=== PATIENT | male | born 1995 | race Caucasian/White ===

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

== ENCOUNTER 2018-04-27 11:28 | Inpatient (IN) ==
[2018-04-27] MEDS ORDERED: Sod Chloride 0.9% Inj 1,000 ML IV.CONT SCH ×2 (11:45→14:15)
[2018-04-27 11:47] LABS: Baso # (Auto) 0.1 th/mm3 (0.0-0.2); Baso % (Auto) 0.4 % (0.0-2.0); Eos # (Auto) 0.1 th/mm3 (0.0-0.4); Eos % (Auto) 0.6 % (0.0-4.0); Hematocrit 40.4 % (39.0-51.0); Hemoglobin 13.7 gm/dL (13.0-17.0); Lymph # (Auto) 4.8 th/mm3 (1.0-4.8); Lymph % (Auto) 28.1 % (9.0-44.0); Mean Corpuscular Volume 88.5 fL (80.0-100.0); Mono # (Auto) 0.8 th/mm3 (0.0-0.9); Mono % (Auto) 4.4 % (0.0-8.0); Neut # (Auto) 11.3 th/mm3 (1.8-7.7); Neut % (Auto) 66.5 % (16.0-70.0); Platelet Count 329 th/mm3 (150-450); Red Blood Count 4.57 mil/mm3 (4.50-5.90); Red Cell Distribution Width 14.2 % (11.6-17.2); White Blood Count 17.1 th/mm3 (4.0-11.0)
--- NOTE | 2018-04-27 11:48 | ED ---
HPI General Chief Complaint: Overdose Stated Complaint: Overdose Time Seen by Provider: 04/27/18 11:31 History of Present Illness HPI narrative: Patient is approximately 37 years old male obese, was found on the floor by another person possibly his father who called the ambulance. Patient was unresponsive down time is unknown. EMS came to house, patient was given Narcan with no response, he was intubated on the scene, was unresponsive. They found at back of PCP next to the patient. As per father he does not use any street drugs, patient has history of psychiatric disorder no information about medications. Patient was brought to emergency room intubated, heart rate 118, systolic blood pressure is 96. Pupils pinpoint 2 mm, sluggish. IV fluids given. Related Data Home Medications Medication Instructions Recorded Confirmed Unable to Obtain Home Meds 04/27/18 04/27/18 Allergies Allergy/AdvReac Type Severity Reaction Status Date / Time shellfish derived Allergy Anaphylaxis Verified 04/27/18 13:21 Review of Systems ROS: all other systems reviewed are negative Constitutional Comments: Unresponsive Respiratory Comments: Intubated, bilateral rhonchi PMFSH Medical History Medical History Affective bipolar disorder (Acute) Surgical History Surgical History Hx of tonsillectomy (Acute) Social History Social History Substance History: Active Abuse Second Hand Smoke Exposure: No Smoking Status: Never smoker Tobacco Type: E-Cigarettes How Often Do You Have a Drink Containing Alcohol: Never Recent Travel in [facility] within the Last 8 Weeks: No Recent Out of Country Travel within the Last 8 Weeks: No Exam Narrative Exam Narrative: GENERAL: Obese male unknown age, intubated, unresponsive. SKIN: Focused skin assessment warm/dry. HEAD: Normocephalic. EYES: Pupils equal, 2 mm, sluggish, no scleral icterus. No injection or drainage. ENT: No nasal bleeding or discharge. Mucous membranes pink and moist. ET tube in place. NECK: Trachea midline. No JVD. CARDIOVASCULAR: Regular rate and rhythm. No murmur appreciated. RESPIRATORY: Intubated, on the vent, bilateral rhonchi. GASTROINTESTINAL: Abdomen soft, non-tender, nondistended. Hepatic and splenic margins not palpable. MUSCULOSKELETAL: No obvious deformities. No clubbing. No cyanosis. No edema. NEUROLOGICAL: Patient is intubated, unresponsive, pupils sluggish, unable to evaluate neurologic system. PSYCHIATRIC: Unresponsive Course Initial Documented Vital Signs Temperature 98.4 F 04/27/18 11:30 Pulse Rate 117 H 04/27/18 11:30 Blood Pressure 96/51 L 04/27/18 11:30 Pulse Oximetry 98 04/27/18 11:30 Last Documented Vital Signs Temperature 98.9 F 04/28/18 04:00 Pulse Rate 93 H 04/28/18 07:39 Respiratory Rate 17 04/28/18 07:39 Blood Pressure 109/53 L 04/28/18 07:00 Pulse Oximetry 100 04/28/18 07:39 Procedures Central Line Placement Left IJ: Time Out Performed: Yes Patient Placed on Monitor/Pulse Ox: Yes MD Prep: mask, gown, gloves and other Central Line Prep: Chlorhexidine scrub Local anesthesia used: lidocaine 1% Amount of anesthesia used (mL): 10 Ultrasound Used for Placement: Yes Central Line Lumen Inserted: triple Post Procedure: sutured in place, good blood return, all ports aspirated, flushed, capped and sterile dressing applied Post Procedure X-Ray: tip of catheter in good position and no pneumothorax seen Patient Tolerated Procedure: well and no complications Complications: none Critical Care Time Critical Care Time: Yes Total Critical Care Time: 45 Attestation: Patient is unresponsive, intubated, status post trauma/fall, suicidal attempt suspected, has bilateral infiltrates in the lungs, most likely aspiration pneumonia, treated with few liters of IV fluids, multiple labs and CAT scans done. Case discussed with family, admitting physicians. Critical care time does not include central line placement. Medical Decision Making MDM Narrative Medical decision making narrative: Patient is unresponsive, initiated cardiac workup, trauma workup, intoxication workup, IV fluids given. Reevaluation is pending. 1230: Parents arrived, as per father patient has history of psychiatric disorder , and suicidal ideations. Was evaluated multiple times in psychiatric department. As per him patient most likely perform suicidal attempt. Patient saw bottle was Ethylene glycol, was using PCP, Wellbutrin... 1600: Blood pressure dropped, most likely due to sepsis, case discussed with lining strap closer Dr. Parker, who accepted patient to [facility] due to possible dialysis procedure. Central line placed in I J. Medical Screen Exam Complete: Yes Emergency Medical Condition: Yes Lab Data Result diagrams: 04/28/18 04:50 04/28/18 04:50 Lab Results 04/27/18 04/27/18 04/27/18 Range/Units 11:30 11:30 11:30 CBC w Diff WBC (4.0-11.0) th/mm3 RBC (4.50-5.90) mil/mm3 Hgb (13.0-17.0) gm/dL Hct (39.0-51.0) % MCV (80.0-100.0) fL MCH (27.0-34.0) pg MCHC (32.0-36.0) % RDW (11.6-17.2) % Plt Count (150-450) th/mm3 MPV (7.0-11.0) fL Neut % (Auto) (16.0-70.0) % Lymph % (Auto) (9.0-44.0) % [place] % (Auto) (0.0-8.0) % Eos % (Auto) (0.0-4.0) % Baso % (Auto) (0.0-2.0) % Neut # (Auto) (1.8-7.7) th/mm3 Lymph # (Auto) (1.0-4.8) th/mm3 [place] # (Auto) (0.0-0.9) th/mm3 Eos # (Auto) (0.0-0.4) th/mm3 Baso # (Auto) (0.0-0.2) th/mm3 WBC Differential Differential Comment PT 10.3 (9.8-11.6) sec INR 1.0 Ratio APTT 25.3 (24.3-30.1) sec Fibrinogen (227-377) mg/dL Puncture Site Patient Temperature O2 Saturation (90-100) % ABG pH (7.380-7.420) ABG pCO2 (38-42) mmHg ABG pO2 (61-120) mmHg ABG HCO3 (22-26) mmol/L ABG O2 Content (12.0-20.0) Vol % ABG Base Excess (-2-2) mmol/L ABG Methemoglobin (0-2) % Noah Test Hemoglobin (12.0-16.0) G/DL Carboxyhemoglobin (0-4) % O2 Delivery Device Vent Setting Inspired O2 % Critical Value Sodium (136-145) meq/L Potassium (3.5-5.1) meq/L Chloride (98-107) meq/L Carbon Dioxide (21.0-32.0) meq/L Anion Gap (5-15) meq/L BUN (7-18) mg/dL Creatinine (0.60-1.30) mg/dL Estimated GFR (>89) mL/min POC Glucose (68-110) mg/dl Random Glucose (74-106) mg/dL Osmolality (275-295) mosm/kg Lactic Acid (0.4-2.0) mmol/L Calcium (8.5-10.1) mg/dL Prot Corrected Calcium (8.5-10.1) mg/dL Phosphorus (2.5-4.9) mg/dL Magnesium (1.5-2.5) mg/dL Total Bilirubin (0.2-1.0) mg/dL AST (15-37) U/L ALT (12-78) U/L Alkaline Phosphatase (45-117) U/L Ammonia (11-32) mcmol/L Total Creatine Kinase (39-308) U/L CK-MB (CK-2) (0.5-3.6) ng/mL CK-MB (CK-2) % (0.0-4.0) % Troponin I (0.02-0.05) ng/mL Total Protein (6.4-8.2) g/dL Albumin (3.4-5.0) g/dL Urine Color (Yellw/Straw) Urine Clarity (Clear) Urine pH (5.0-8.5) Ur Specific [place] (1.002-1.035) Urine Protein (Neg-Trace) mg/dL Urine Glucose (UA) (Negative) mg/dL Urine Ketones (Negative) mg/dL Urine Occult Blood (Negative) Urine Nitrate (Negative) Urine Bilirubin (Negative) Urine Urobilinogen (Less than 2) mg/dL Ur Leukocyte Esterase (Negative) Urine RBC (0-3) /hpf Urine WBC (0-5) /hpf Urine Mucus (Occasional) /lpf Micro UA Comment Ur Microscopic Review Urine Culture Comments Nasal Screen MRSA (PCR) Salicylates Cancelled Urine Opiates Screen (Neg) Acetaminophen (10.0-30.0) mcg/mL Ur Barbiturates Screen (Neg) Ur Amphetamines Screen (Neg) U Benzodiazepines Scrn (Neg) Urine Cocaine Screen (Neg) U Cannabinoids Screen (Neg) Serum Alcohol Cancelled 04/27/18 04/27/18 04/27/18 Range/Units 11:30 11:30 11:40 CBC w Diff Auto diff final WBC 17.1 H (4.0-11.0) th/mm3 RBC 4.57 (4.50-5.90) mil/mm3 Hgb 13.7 (13.0-17.0) gm/dL Hct 40.4 (39.0-51.0) % MCV 88.5 (80.0-100.0) fL MCH 30.0 (27.0-34.0) pg MCHC 34.0 (32.0-36.0) % RDW 14.2 (11.6-17.2) % Plt Count 329 (150-450) th/mm3 MPV 7.0 (7.0-11.0) fL Neut % (Auto) 66.5 (16.0-70.0) % Lymph % (Auto) 28.1 (9.0-44.0) % [place] % (Auto) 4.4 (0.0-8.0) % Eos % (Auto) 0.6 (0.0-4.0) % Baso % (Auto) 0.4 (0.0-2.0) % Neut # (Auto) 11.3 H (1.8-7.7) th/mm3 Lymph # (Auto) 4.8 (1.0-4.8) th/mm3 [place] # (Auto) 0.8 (0.0-0.9) th/mm3 Eos # (Auto) 0.1 (0.0-0.4) th/mm3 Baso # (Auto) 0.1 (0.0-0.2) th/mm3 WBC Differential . Differential Comment . PT (9.8-11.6) sec INR Ratio APTT (24.3-30.1) sec Fibrinogen (227-377) mg/dL Puncture Site Patient Temperature O2 Saturation (90-100) % ABG pH (7.380-7.420) ABG pCO2 (38-42) mmHg ABG pO2 (61-120) mmHg ABG HCO3 (22-26) mmol/L ABG O2 Content (12.0-20.0) Vol % ABG Base Excess (-2-2) mmol/L ABG Methemoglobin (0-2) % Noah Test Hemoglobin (12.0-16.0) G/DL Carboxyhemoglobin (0-4) % O2 Delivery Device Vent Setting Inspired O2 % Critical Value Sodium 137 (136-145) meq/L Potassium 3.8 (3.5-5.1) meq/L Chloride 103 (98-107) meq/L Carbon Dioxide 25.5 (21.0-32.0) meq/L Anion Gap 9 (5-15) meq/L BUN 14 (7-18) mg/dL Creatinine 1.20 (0.60-1.30) mg/dL Estimated GFR 52 L (>89) mL/min POC Glucose (68-110) mg/dl Random Glucose 232 H (74-106) mg/dL Osmolality (275-295) mosm/kg Lactic Acid (0.4-2.0) mmol/L Calcium 7.8 L (8.5-10.1) mg/dL Prot Corrected Calcium (8.5-10.1) mg/dL Phosphorus (2.5-4.9) mg/dL Magnesium 2.2 (1.5-2.5) mg/dL Total Bilirubin 0.3 (0.2-1.0) mg/dL AST 51 H (15-37) U/L ALT 46 (12-78) U/L Alkaline Phosphatase 80 (45-117) U/L Ammonia (11-32) mcmol/L Total Creatine Kinase (39-308) U/L CK-MB (CK-2) (0.5-3.6) ng/mL CK-MB (CK-2) % (0.0-4.0) % Troponin I Less than 0.02 L (0.02-0.05) ng/mL Total Protein 6.8 (6.4-8.2) g/dL Albumin 3.5 (3.4-5.0) g/dL Urine Color (Yellw/Straw) Urine Clarity (Clear) Urine pH (5.0-8.5) Ur Specific [place] (1.002-1.035) Urine Protein (Neg-Trace) mg/dL Urine Glucose (UA) (Negative) mg/dL Urine Ketones (Negative) mg/dL Urine Occult Blood (Negative) Urine Nitrate (Negative) Urine Bilirubin (Negative) Urine Urobilinogen (Less than 2) mg/dL Ur Leukocyte Esterase (Negative) Urine RBC (0-3) /hpf Urine WBC (0-5) /hpf Urine Mucus (Occasional) /lpf Micro UA Comment Ur Microscopic Review Urine Culture Comments Nasal Screen MRSA (PCR) Salicylates Urine Opiates Screen (Neg) Acetaminophen Less than 2.0 L (10.0-30.0) mcg/mL Ur Barbiturates Screen (Neg) Ur Amphetamines Screen (Neg) U Benzodiazepines Scrn (Neg) Urine Cocaine Screen (Neg) U Cannabinoids Screen (Neg) Serum Alcohol Less than 3 04/27/18 04/27/18 04/27/18 Range/Units 11:40 11:46 12:00 CBC w Diff WBC (4.0-11.0) th/mm3 RBC (4.50-5.90) mil/mm3 Hgb (13.0-17.0) gm/dL Hct (39.0-51.0) % MCV (80.0-100.0) fL MCH (27.0-34.0) pg MCHC (32.0-36.0) % RDW (11.6-17.2) % Plt Count (150-450) th/mm3 MPV (7.0-11.0) fL Neut % (Auto) (16.0-70.0) % Lymph % (Auto) (9.0-44.0) % [place] % (Auto) (0.0-8.0) % Eos % (Auto) (0.0-4.0) % Baso % (Auto) (0.0-2.0) % Neut # (Auto) (1.8-7.7) th/mm3 Lymph # (Auto) (1.0-4.8) th/mm3 [place] # (Auto) (0.0-0.9) th/mm3 Eos # (Auto) (0.0-0.4) th/mm3 Baso # (Auto) (0.0-0.2) th/mm3 WBC Differential Differential Comment PT (9.8-11.6) sec INR Ratio APTT (24.3-30.1) sec Fibrinogen (227-377) mg/dL Puncture Site Patient Temperature O2 Saturation (90-100) % ABG pH (7.380-7.420) ABG pCO2 (38-42) mmHg ABG pO2 (61-120) mmHg ABG HCO3 (22-26) mmol/L ABG O2 Content (12.0-20.0) Vol % ABG Base Excess (-2-2) mmol/L ABG Methemoglobin (0-2) % Noah Test Hemoglobin (12.0-16.0) G/DL Carboxyhemoglobin (0-4) % O2 Delivery Device Vent Setting Inspired O2 % Critical Value Sodium (136-145) meq/L Potassium (3.5-5.1) meq/L Chloride (98-107) meq/L Carbon Dioxide (21.0-32.0) meq/L Anion Gap (5-15) meq/L BUN (7-18) mg/dL Creatinine (0.60-1.30) mg/dL Estimated GFR (>89) mL/min POC Glucose 216 H (68-110) mg/dl Random Glucose (74-106) mg/dL Osmolality (275-295) mosm/kg Lactic Acid 2.8 H (0.4-2.0) mmol/L Calcium (8.5-10.1) mg/dL Prot Corrected Calcium (8.5-10.1) mg/dL Phosphorus (2.5-4.9) mg/dL Magnesium (1.5-2.5) mg/dL Total Bilirubin (0.2-1.0) mg/dL AST (15-37) U/L ALT (12-78) U/L Alkaline Phosphatase (45-117) U/L Ammonia (11-32) mcmol/L Total Creatine Kinase (39-308) U/L CK-MB (CK-2) (0.5-3.6) ng/mL CK-MB (CK-2) % (0.0-4.0) % Troponin I (0.02-0.05) ng/mL Total Protein (6.4-8.2) g/dL Albumin (3.4-5.0) g/dL Urine Color (Yellw/Straw) Urine Clarity (Clear) Urine pH (5.0-8.5) Ur Specific [place] (1.002-1.035) Urine Protein (Neg-Trace) mg/dL Urine Glucose (UA) (Negative) mg/dL Urine Ketones (Negative) mg/dL Urine Occult Blood (Negative) Urine Nitrate (Negative) Urine Bilirubin (Negative) Urine Urobilinogen (Less than 2) mg/dL Ur Leukocyte Esterase (Negative) Urine RBC (0-3) /hpf Urine WBC (0-5) /hpf Urine Mucus (Occasional) /lpf Micro UA Comment Ur Microscopic Review Urine Culture Comments Nasal Screen MRSA (PCR) Salicylates Less than 1.7 L Urine Opiates Screen (Neg) Acetaminophen (10.0-30.0) mcg/mL Ur Barbiturates Screen (Neg) Ur Amphetamines Screen (Neg) U Benzodiazepines Scrn (Neg) Urine Cocaine Screen (Neg) U Cannabinoids Screen (Neg) Serum Alcohol 04/27/18 04/27/18 04/27/18 Range/Units 12:06 12:45 14:25 CBC w Diff WBC (4.0-11.0) th/mm3 RBC (4.50-5.90) mil/mm3 Hgb (13.0-17.0) gm/dL Hct (39.0-51.0) % MCV (80.0-100.0) fL MCH (27.0-34.0) pg MCHC (32.0-36.0) % RDW (11.6-17.2) % Plt Count (150-450) th/mm3 MPV (7.0-11.0) fL Neut % (Auto) (16.0-70.0) % Lymph % (Auto) (9.0-44.0) % [place] % (Auto) (0.0-8.0) % Eos % (Auto) (0.0-4.0) % Baso % (Auto) (0.0-2.0) % Neut # (Auto) (1.8-7.7) th/mm3 Lymph # (Auto) (1.0-4.8) th/mm3 [place] # (Auto) (0.0-0.9) th/mm3 Eos # (Auto) (0.0-0.4) th/mm3 Baso # (Auto) (0.0-0.2) th/mm3 WBC Differential Differential Comment PT (9.8-11.6) sec INR Ratio APTT (24.3-30.1) sec Fibrinogen (227-377) mg/dL Puncture Site Left brachial Left radial Patient Temperature 98.6 98.6 O2 Saturation 89 L* 94 (90-100) % ABG pH 7.38 7.39 (7.380-7.420) ABG pCO2 42 39 (38-42) mmHg ABG pO2 64 94 (61-120) mmHg ABG HCO3 24 23 (22-26) mmol/L ABG O2 Content 17.4 17.8 (12.0-20.0) Vol % ABG Base Excess -0.5 -1.5 (-2-2) mmol/L ABG Methemoglobin 1.5 1.3 (0-2) % Noah Test Present Y Hemoglobin 14.0 13.4 (12.0-16.0) G/DL Carboxyhemoglobin 1.4 1.5 (0-4) % O2 Delivery Device Ventilator Ventilator Vent Setting Ac/16/600/5peep Ac16/600/+8peep Inspired O2 100 100 % Critical Value Yes No Sodium (136-145) meq/L Potassium (3.5-5.1) meq/L Chloride (98-107) meq/L Carbon Dioxide (21.0-32.0) meq/L Anion Gap (5-15) meq/L BUN (7-18) mg/dL Creatinine (0.60-1.30) mg/dL Estimated GFR (>89) mL/min POC Glucose (68-110) mg/dl Random Glucose (74-106) mg/dL Osmolality 307 H (275-295) mosm/kg Lactic Acid (0.4-2.0) mmol/L Calcium (8.5-10.1) mg/dL Prot Corrected Calcium (8.5-10.1) mg/dL Phosphorus (2.5-4.9) mg/dL Magnesium (1.5-2.5) mg/dL Total Bilirubin (0.2-1.0) mg/dL AST (15-37) U/L ALT (12-78) U/L Alkaline Phosphatase (45-117) U/L Ammonia (11-32) mcmol/L Total Creatine Kinase (39-308) U/L CK-MB (CK-2) (0.5-3.6) ng/mL CK-MB (CK-2) % (0.0-4.0) % Troponin I (0.02-0.05) ng/mL Total Protein (6.4-8.2) g/dL Albumin (3.4-5.0) g/dL Urine Color (Yellw/Straw) Urine Clarity (Clear) Urine pH (5.0-8.5) Ur Specific [place] (1.002-1.035) Urine Protein (Neg-Trace) mg/dL Urine Glucose (UA) (Negative) mg/dL Urine Ketones (Negative) mg/dL Urine Occult Blood (Negative) Urine Nitrate (Negative) Urine Bilirubin (Negative) Urine Urobilinogen (Less than 2) mg/dL Ur Leukocyte Esterase (Negative) Urine RBC (0-3) /hpf Urine WBC (0-5) /hpf Urine Mucus (Occasional) /lpf Micro UA Comment Ur Microscopic Review Urine Culture Comments Nasal Screen MRSA (PCR) Salicylates Urine Opiates Screen (Neg) Acetaminophen (10.0-30.0) mcg/mL Ur Barbiturates Screen (Neg) Ur Amphetamines Screen (Neg) U Benzodiazepines Scrn (Neg) Urine Cocaine Screen (Neg) U Cannabinoids Screen (Neg) Serum Alcohol 04/27/18 04/27/18 04/27/18 Range/Units 14:30 14:31 14:31 CBC w Diff WBC (4.0-11.0) th/mm3 RBC (4.50-5.90) mil/mm3 Hgb (13.0-17.0) gm/dL Hct (39.0-51.0) % MCV (80.0-100.0) fL MCH (27.0-34.0) pg MCHC (32.0-36.0) % RDW (11.6-17.2) % Plt Count (150-450) th/mm3 MPV (7.0-11.0) fL Neut % (Auto) (16.0-70.0) % Lymph % (Auto) (9.0-44.0) % [place] % (Auto) (0.0-8.0) % Eos % (Auto) (0.0-4.0) % Baso % (Auto) (0.0-2.0) % Neut # (Auto) (1.8-7.7) th/mm3 Lymph # (Auto) (1.0-4.8) th/mm3 [place] # (Auto) (0.0-0.9) th/mm3 Eos # (Auto) (0.0-0.4) th/mm3 Baso # (Auto) (0.0-0.2) th/mm3 WBC Differential Differential Comment PT (9.8-11.6) sec INR Ratio APTT (24.3-30.1) sec Fibrinogen (227-377) mg/dL Puncture Site Patient Temperature O2 Saturation (90-100) % ABG pH (7.380-7.420) ABG pCO2 (38-42) mmHg ABG pO2 (61-120) mmHg ABG HCO3 (22-26) mmol/L ABG O2 Content (12.0-20.0) Vol % ABG Base Excess (-2-2) mmol/L ABG Methemoglobin (0-2) % Noah Test Hemoglobin (12.0-16.0) G/DL Carboxyhemoglobin (0-4) % O2 Delivery Device Vent Setting Inspired O2 % Critical Value Sodium (136-145) meq/L Potassium (3.5-5.1) meq/L Chloride (98-107) meq/L Carbon Dioxide (21.0-32.0) meq/L Anion Gap (5-15) meq/L BUN (7-18) mg/dL Creatinine (0.60-1.30) mg/dL Estimated GFR (>89) mL/min POC Glucose (68-110) mg/dl Random Glucose (74-106) mg/dL Osmolality (275-295) mosm/kg Lactic Acid 2.3 H (0.4-2.0) mmol/L Calcium (8.5-10.1) mg/dL Prot Corrected Calcium (8.5-10.1) mg/dL Phosphorus (2.5-4.9) mg/dL Magnesium (1.5-2.5) mg/dL Total Bilirubin (0.2-1.0) mg/dL AST (15-37) U/L ALT (12-78) U/L Alkaline Phosphatase (45-117) U/L Ammonia (11-32) mcmol/L Total Creatine Kinase (39-308) U/L CK-MB (CK-2) (0.5-3.6) ng/mL CK-MB (CK-2) % (0.0-4.0) % Troponin I (0.02-0.05) ng/mL Total Protein (6.4-8.2) g/dL Albumin (3.4-5.0) g/dL Urine Color Yellow (Yellw/Straw) Urine Clarity Slightly cloudy (Clear) Urine pH 5.5 (5.0-8.5) Ur Specific [place] Greater/equal 1.030 (1.002-1.035) Urine Protein 100 H (Neg-Trace) mg/dL Urine Glucose (UA) 250 H (Negative) mg/dL Urine Ketones Negative (Negative) mg/dL Urine Occult Blood Large H (Negative) Urine Nitrate Negative (Negative) Urine Bilirubin Negative (Negative) Urine Urobilinogen 0.2 (Less than 2) mg/dL Ur Leukocyte Esterase Negative (Negative) Urine RBC Innumerable H (0-3) /hpf Urine WBC 0-5 (0-5) /hpf Urine Mucus Few H (Occasional) /lpf Micro UA Comment Cath-culture not ind Ur Microscopic Review Microscopic reviewed Urine Culture Comments Cath-cult not ind Nasal Screen MRSA (PCR) Salicylates Urine Opiates Screen Neg (Neg) Acetaminophen (10.0-30.0) mcg/mL Ur Barbiturates Screen Neg (Neg) Ur Amphetamines Screen Neg (Neg) U Benzodiazepines Scrn Pos H (Neg) Urine Cocaine Screen Neg (Neg) U Cannabinoids Screen Neg (Neg) Serum Alcohol 04/27/18 04/27/18 04/27/18 Range/Units 16:00 16:00 16:00 CBC w Diff WBC (4.0-11.0) th/mm3 RBC (4.50-5.90) mil/mm3 Hgb (13.0-17.0) gm/dL Hct (39.0-51.0) % MCV (80.0-100.0) fL MCH (27.0-34.0) pg MCHC (32.0-36.0) % RDW (11.6-17.2) % Plt Count (150-450) th/mm3 MPV (7.0-11.0) fL Neut % (Auto) (16.0-70.0) % Lymph % (Auto) (9.0-44.0) % [place] % (Auto) (0.0-8.0) % Eos % (Auto) (0.0-4.0) % Baso % (Auto) (0.0-2.0) % Neut # (Auto) (1.8-7.7) th/mm3 Lymph # (Auto) (1.0-4.8) th/mm3 [place] # (Auto) (0.0-0.9) th/mm3 Eos # (Auto) (0.0-0.4) th/mm3 Baso # (Auto) (0.0-0.2) th/mm3 WBC Differential Differential Comment PT (9.8-11.6) sec INR Ratio APTT (24.3-30.1) sec Fibrinogen 373 (227-377) mg/dL Puncture Site Patient Temperature O2 Saturation (90-100) % ABG pH (7.380-7.420) ABG pCO2 (38-42) mmHg ABG pO2 (61-120) mmHg ABG HCO3 (22-26) mmol/L ABG O2 Content (12.0-20.0) Vol % ABG Base Excess (-2-2) mmol/L ABG Methemoglobin (0-2) % Noah Test Hemoglobin (12.0-16.0) G/DL Carboxyhemoglobin (0-4) % O2 Delivery Device Vent Setting Inspired O2 % Critical Value Sodium (136-145) meq/L Potassium (3.5-5.1) meq/L Chloride (98-107) meq/L Carbon Dioxide (21.0-32.0) meq/L Anion Gap (5-15) meq/L BUN (7-18) mg/dL Creatinine (0.60-1.30) mg/dL Estimated GFR (>89) mL/min POC Glucose (68-110) mg/dl Random Glucose (74-106) mg/dL Osmolality (275-295) mosm/kg Lactic Acid (0.4-2.0) mmol/L Calcium (8.5-10.1) mg/dL Prot Corrected Calcium (8.5-10.1) mg/dL Phosphorus 2.7 (2.5-4.9) mg/dL Magnesium 1.8 (1.5-2.5) mg/dL Total Bilirubin (0.2-1.0) mg/dL AST (15-37) U/L ALT (12-78) U/L Alkaline Phosphatase (45-117) U/L Ammonia 21 (11-32) mcmol/L Total Creatine Kinase (39-308) U/L CK-MB (CK-2) (0.5-3.6) ng/mL CK-MB (CK-2) % (0.0-4.0) % Troponin I (0.02-0.05) ng/mL Total Protein (6.4-8.2) g/dL Albumin (3.4-5.0) g/dL Urine Color (Yellw/Straw) Urine Clarity (Clear) Urine pH (5.0-8.5) Ur Specific [place] (1.002-1.035) Urine Protein (Neg-Trace) mg/dL Urine Glucose (UA) (Negative) mg/dL Urine Ketones (Negative) mg/dL Urine Occult Blood (Negative) Urine Nitrate (Negative) Urine Bilirubin (Negative) Urine Urobilinogen (Less than 2) mg/dL Ur Leukocyte Esterase (Negative) Urine RBC (0-3) /hpf Urine WBC (0-5) /hpf Urine Mucus (Occasional) /lpf Micro UA Comment Ur Microscopic Review Urine Culture Comments Nasal Screen MRSA (PCR) Salicylates Urine Opiates Screen (Neg) Acetaminophen (10.0-30.0) mcg/mL Ur Barbiturates Screen (Neg) Ur Amphetamines Screen (Neg) U Benzodiazepines Scrn (Neg) Urine Cocaine Screen (Neg) U Cannabinoids Screen (Neg) Serum Alcohol 04/27/18 04/27/18 04/27/18 Range/Units 19:00 20:11 20:35 CBC w Diff WBC (4.0-11.0) th/mm3 RBC (4.50-5.90) mil/mm3 Hgb (13.0-17.0) gm/dL Hct (39.0-51.0) % MCV (80.0-100.0) fL MCH (27.0-34.0) pg MCHC (32.0-36.0) % RDW (11.6-17.2) % Plt Count (150-450) th/mm3 MPV (7.0-11.0) fL Neut % (Auto) (16.0-70.0) % Lymph % (Auto) (9.0-44.0) % [place] % (Auto) (0.0-8.0) % Eos % (Auto) (0.0-4.0) % Baso % (Auto) (0.0-2.0) % Neut # (Auto) (1.8-7.7) th/mm3 Lymph # (Auto) (1.0-4.8) th/mm3 [place] # (Auto) (0.0-0.9) th/mm3 Eos # (Auto) (0.0-0.4) th/mm3 Baso # (Auto) (0.0-0.2) th/mm3 WBC Differential Differential Comment PT (9.8-11.6) sec INR Ratio APTT (24.3-30.1) sec Fibrinogen (227-377) mg/dL Puncture Site Patient Temperature O2 Saturation (90-100) % ABG pH (7.380-7.420) ABG pCO2 (38-42) mmHg ABG pO2 (61-120) mmHg ABG HCO3 (22-26) mmol/L ABG O2 Content (12.0-20.0) Vol % ABG Base Excess (-2-2) mmol/L ABG Methemoglobin (0-2) % Noah Test Hemoglobin (12.0-16.0) G/DL Carboxyhemoglobin (0-4) % O2 Delivery Device Vent Setting Inspired O2 % Critical Value Sodium 141 (136-145) meq/L Potassium 4.4 (3.5-5.1) meq/L Chloride 109 H (98-107) meq/L Carbon Dioxide 23.9 (21.0-32.0) meq/L Anion Gap 8 (5-15) meq/L BUN 14 (7-18) mg/dL Creatinine 1.10 (0.60-1.30) mg/dL Estimated GFR 85 L (>89) mL/min POC Glucose 131 H (68-110) mg/dl Random Glucose 120 H D (74-106) mg/dL Osmolality (275-295) mosm/kg Lactic Acid (0.4-2.0) mmol/L Calcium 7.5 L (8.5-10.1) mg/dL Prot Corrected Calcium (8.5-10.1) mg/dL Phosphorus (2.5-4.9) mg/dL Magnesium (1.5-2.5) mg/dL Total Bilirubin (0.2-1.0) mg/dL AST (15-37) U/L ALT (12-78) U/L Alkaline Phosphatase (45-117) U/L Ammonia (11-32) mcmol/L Total Creatine Kinase 1366 H (39-308) U/L CK-MB (CK-2) 10.6 H (0.5-3.6) ng/mL CK-MB (CK-2) % 0.8 (0.0-4.0) % Troponin I 0.17 H (0.02-0.05) ng/mL Total Protein (6.4-8.2) g/dL Albumin (3.4-5.0) g/dL Urine Color (Yellw/Straw) Urine Clarity (Clear) Urine pH (5.0-8.5) Ur Specific [place] (1.002-1.035) Urine Protein (Neg-Trace) mg/dL Urine Glucose (UA) (Negative) mg/dL Urine Ketones (Negative) mg/dL Urine Occult Blood (Negative) Urine Nitrate (Negative) Urine Bilirubin (Negative) Urine Urobilinogen (Less than 2) mg/dL Ur Leukocyte Esterase (Negative) Urine RBC (0-3) /hpf Urine WBC (0-5) /hpf Urine Mucus (Occasional) /lpf Micro UA Comment Ur Microscopic Review Urine Culture Comments Nasal Screen MRSA (PCR) Cancelled Salicylates Urine Opiates Screen (Neg) Acetaminophen (10.0-30.0) mcg/mL Ur Barbiturates Screen (Neg) Ur Amphetamines Screen (Neg) U Benzodiazepines Scrn (Neg) Urine Cocaine Screen (Neg) U Cannabinoids Screen (Neg) Serum Alcohol 04/27/18 04/27/18 04/27/18 Range/Units 20:35 20:35 22:19 CBC w Diff WBC (4.0-11.0) th/mm3 RBC (4.50-5.90) mil/mm3 Hgb (13.0-17.0) gm/dL Hct (39.0-51.0) % MCV (80.0-100.0) fL MCH (27.0-34.0) pg MCHC (32.0-36.0) % RDW (11.6-17.2) % Plt Count (150-450) th/mm3 MPV (7.0-11.0) fL Neut % (Auto) (16.0-70.0) % Lymph % (Auto) (9.0-44.0) % [place] % (Auto) (0.0-8.0) % Eos % (Auto) (0.0-4.0) % Baso % (Auto) (0.0-2.0) % Neut # (Auto) (1.8-7.7) th/mm3 Lymph # (Auto) (1.0-4.8) th/mm3 [place] # (Auto) (0.0-0.9) th/mm3 Eos # (Auto) (0.0-0.4) th/mm3 Baso # (Auto) (0.0-0.2) th/mm3 WBC Differential Differential Comment PT (9.8-11.6) sec INR Ratio APTT (24.3-30.1) sec Fibrinogen (227-377) mg/dL Puncture Site Right radial Patient Temperature 98.6 O2 Saturation 93 (90-100) % ABG pH 7.35 L (7.380-7.420) ABG pCO2 39 (38-42) mmHg ABG pO2 86 (61-120) mmHg ABG HCO3 21 L (22-26) mmol/L ABG O2 Content 15.5 (12.0-20.0) Vol % ABG Base Excess -3.9 L (-2-2) mmol/L ABG Methemoglobin 1.7 (0-2) % Noah Test Present Hemoglobin 11.7 L (12.0-16.0) G/DL Carboxyhemoglobin 0.8 (0-4) % O2 Delivery Device Ventilator Vent Setting Volume /ac Inspired O2 80 % Critical Value No Sodium (136-145) meq/L Potassium (3.5-5.1) meq/L Chloride (98-107) meq/L Carbon Dioxide (21.0-32.0) meq/L Anion Gap (5-15) meq/L BUN (7-18) mg/dL Creatinine (0.60-1.30) mg/dL Estimated GFR (>89) mL/min POC Glucose (68-110) mg/dl Random Glucose (74-106) mg/dL Osmolality 307 H (275-295) mosm/kg Lactic Acid 2.0 (0.4-2.0) mmol/L Calcium (8.5-10.1) mg/dL Prot Corrected Calcium (8.5-10.1) mg/dL Phosphorus (2.5-4.9) mg/dL Magnesium (1.5-2.5) mg/dL Total Bilirubin (0.2-1.0) mg/dL AST (15-37) U/L ALT (12-78) U/L Alkaline Phosphatase (45-117) U/L Ammonia (11-32) mcmol/L Total Creatine Kinase (39-308) U/L CK-MB (CK-2) (0.5-3.6) ng/mL CK-MB (CK-2) % (0.0-4.0) % Troponin I (0.02-0.05) ng/mL Total Protein (6.4-8.2) g/dL Albumin (3.4-5.0) g/dL Urine Color (Yellw/Straw) Urine Clarity (Clear) Urine pH (5.0-8.5) Ur Specific [place] (1.002-1.035) Urine Protein (Neg-Trace) mg/dL Urine Glucose (UA) (Negative) mg/dL Urine Ketones (Negative) mg/dL Urine Occult Blood (Negative) Urine Nitrate (Negative) Urine Bilirubin (Negative) Urine Urobilinogen (Less than 2) mg/dL Ur Leukocyte Esterase (Negative) Urine RBC (0-3) /hpf Urine WBC (0-5) /hpf Urine Mucus (Occasional) /lpf Micro UA Comment Ur Microscopic Review Urine Culture Comments Nasal Screen MRSA (PCR) Salicylates Urine Opiates Screen (Neg) Acetaminophen (10.0-30.0) mcg/mL Ur Barbiturates Screen (Neg) Ur Amphetamines Screen (Neg) U Benzodiazepines Scrn (Neg) Urine Cocaine Screen (Neg) U Cannabinoids Screen (Neg) Serum Alcohol 04/27/18 04/28/18 04/28/18 Range/Units 23:32 01:25 01:25 CBC w Diff WBC (4.0-11.0) th/mm3 RBC (4.50-5.90) mil/mm3 Hgb (13.0-17.0) gm/dL Hct (39.0-51.0) % MCV (80.0-100.0) fL MCH (27.0-34.0) pg MCHC (32.0-36.0) % RDW (11.6-17.2) % Plt Count (150-450) th/mm3 MPV (7.0-11.0) fL Neut % (Auto) (16.0-70.0) % Lymph % (Auto) (9.0-44.0) % [place] % (Auto) (0.0-8.0) % Eos % (Auto) (0.0-4.0) % Baso % (Auto) (0.0-2.0) % Neut # (Auto) (1.8-7.7) th/mm3 Lymph # (Auto) (1.0-4.8) th/mm3 [place] # (Auto) (0.0-0.9) th/mm3 Eos # (Auto) (0.0-0.4) th/mm3 Baso # (Auto) (0.0-0.2) th/mm3 WBC Differential Differential Comment PT (9.8-11.6) sec INR Ratio APTT (24.3-30.1) sec Fibrinogen (227-377) mg/dL Puncture Site Patient Temperature O2 Saturation (90-100) % ABG pH (7.380-7.420) ABG pCO2 (38-42) mmHg ABG pO2 (61-120) mmHg ABG HCO3 (22-26) mmol/L ABG O2 Content (12.0-20.0) Vol % ABG Base Excess (-2-2) mmol/L ABG Methemoglobin (0-2) % Noah Test Hemoglobin (12.0-16.0) G/DL Carboxyhemoglobin (0-4) % O2 Delivery Device Vent Setting Inspired O2 % Critical Value Sodium 143 (136-145) meq/L Potassium 4.4 (3.5-5.1) meq/L Chloride 110 H (98-107) meq/L Carbon Dioxide 24.8 (21.0-32.0) meq/L Anion Gap 8 (5-15) meq/L BUN 13 (7-18) mg/dL Creatinine 1.03 (0.60-1.30) mg/dL Estimated GFR Greater than 89 (>89) mL/min POC Glucose 116 H (68-110) mg/dl Random Glucose 115 H (74-106) mg/dL Osmolality 309 H (275-295) mosm/kg Lactic Acid (0.4-2.0) mmol/L Calcium 7.4 L* (8.5-10.1) mg/dL Prot Corrected Calcium 8.1 L (8.5-10.1) mg/dL Phosphorus (2.5-4.9) mg/dL Magnesium (1.5-2.5) mg/dL Total Bilirubin 0.3 (0.2-1.0) mg/dL AST 41 H (15-37) U/L ALT 40 (12-78) U/L Alkaline Phosphatase 62 (45-117) U/L Ammonia (11-32) mcmol/L Total Creatine Kinase (39-308) U/L CK-MB (CK-2) (0.5-3.6) ng/mL CK-MB (CK-2) % (0.0-4.0) % Troponin I (0.02-0.05) ng/mL Total Protein 5.9 L D (6.4-8.2) g/dL Albumin 2.9 L D (3.4-5.0) g/dL Urine Color (Yellw/Straw) Urine Clarity (Clear) Urine pH (5.0-8.5) Ur Specific [place] (1.002-1.035) Urine Protein (Neg-Trace) mg/dL Urine Glucose (UA) (Negative) mg/dL Urine Ketones (Negative) mg/dL Urine Occult Blood (Negative) Urine Nitrate (Negative) Urine Bilirubin (Negative) Urine Urobilinogen (Less than 2) mg/dL Ur Leukocyte Esterase (Negative) Urine RBC (0-3) /hpf Urine WBC (0-5) /hpf Urine Mucus (Occasional) /lpf Micro UA Comment Ur Microscopic Review Urine Culture Comments Nasal Screen MRSA (PCR) Salicylates Urine Opiates Screen (Neg) Acetaminophen (10.0-30.0) mcg/mL Ur Barbiturates Screen (Neg) Ur Amphetamines Screen (Neg) U Benzodiazepines Scrn (Neg) Urine Cocaine Screen (Neg) U Cannabinoids Screen (Neg) Serum Alcohol 04/28/18 04/28/18 04/28/18 Range/Units 04:50 04:50 04:50 CBC w Diff WBC 13.2 H (4.0-11.0) th/mm3 RBC 3.96 L (4.50-5.90) mil/mm3 Hgb 11.8 L (13.0-17.0) gm/dL Hct 34.3 L (39.0-51.0) % MCV 86.5 (80.0-100.0) fL MCH 29.9 (27.0-34.0) pg MCHC 34.5 (32.0-36.0) % RDW 15.3 (11.6-17.2) % Plt Count 217 D (150-450) th/mm3 MPV 7.0 (7.0-11.0) fL Neut % (Auto) 74.1 H (16.0-70.0) % Lymph % (Auto) 20.4 (9.0-44.0) % [place] % (Auto) 5.3 (0.0-8.0) % Eos % (Auto) 0.1 (0.0-4.0) % Baso % (Auto) 0.1 (0.0-2.0) % Neut # (Auto) 9.8 H (1.8-7.7) th/mm3 Lymph # (Auto) 2.7 (1.0-4.8) th/mm3 [place] # (Auto) 0.7 (0.0-0.9) th/mm3 Eos # (Auto) 0.0 (0.0-0.4) th/mm3 Baso # (Auto) 0.0 (0.0-0.2) th/mm3 WBC Differential . Differential Comment Auto diff final PT 10.8 (9.8-11.6) sec INR 1.1 Ratio APTT 28.0 (24.3-30.1) sec Fibrinogen (227-377) mg/dL Puncture Site Patient Temperature O2 Saturation (90-100) % ABG pH (7.380-7.420) ABG pCO2 (38-42) mmHg ABG pO2 (61-120) mmHg ABG HCO3 (22-26) mmol/L ABG O2 Content (12.0-20.0) Vol % ABG Base Excess (-2-2) mmol/L ABG Methemoglobin (0-2) % Noah Test Hemoglobin (12.0-16.0) G/DL Carboxyhemoglobin (0-4) % O2 Delivery Device Vent Setting Inspired O2 % Critical Value Sodium 143 (136-145) meq/L Potassium 4.2 (3.5-5.1) meq/L Chloride 111 H (98-107) meq/L Carbon Dioxide 27.2 (21.0-32.0) meq/L Anion Gap 5 (5-15) meq/L BUN 13 (7-18) mg/dL Creatinine 1.07 (0.60-1.30) mg/dL Estimated GFR 88 L (>89) mL/min POC Glucose (68-110) mg/dl Random Glucose 114 H (74-106) mg/dL Osmolality (275-295) mosm/kg Lactic Acid (0.4-2.0) mmol/L Calcium 7.5 L (8.5-10.1) mg/dL Prot Corrected Calcium (8.5-10.1) mg/dL Phosphorus 3.9 D (2.5-4.9) mg/dL Magnesium 2.1 (1.5-2.5) mg/dL Total Bilirubin 0.3 (0.2-1.0) mg/dL AST 42 H (15-37) U/L ALT 39 (12-78) U/L Alkaline Phosphatase 63 (45-117) U/L Ammonia (11-32) mcmol/L Total Creatine Kinase (39-308) U/L CK-MB (CK-2) (0.5-3.6) ng/mL CK-MB (CK-2) % (0.0-4.0) % Troponin I (0.02-0.05) ng/mL Total Protein 6.0 L (6.4-8.2) g/dL Albumin 2.9 L (3.4-5.0) g/dL Urine Color (Yellw/Straw) Urine Clarity (Clear) Urine pH (5.0-8.5) Ur Specific [place] (1.002-1.035) Urine Protein (Neg-Trace) mg/dL Urine Glucose (UA) (Negative) mg/dL Urine Ketones (Negative) mg/dL Urine Occult Blood (Negative) Urine Nitrate (Negative) Urine Bilirubin (Negative) Urine Urobilinogen (Less than 2) mg/dL Ur Leukocyte Esterase (Negative) Urine RBC (0-3) /hpf Urine WBC (0-5) /hpf Urine Mucus (Occasional) /lpf Micro UA Comment Ur Microscopic Review Urine Culture Comments Nasal Screen MRSA (PCR) Salicylates Urine Opiates Screen (Neg) Acetaminophen (10.0-30.0) mcg/mL Ur Barbiturates Screen (Neg) Ur Amphetamines Screen (Neg) U Benzodiazepines Scrn (Neg) Urine Cocaine Screen (Neg) U Cannabinoids Screen (Neg) Serum Alcohol 04/28/18 04/28/18 Range/Units 04:50 05:10 CBC w Diff WBC (4.0-11.0) th/mm3 RBC (4.50-5.90) mil/mm3 Hgb (13.0-17.0) gm/dL Hct (39.0-51.0) % MCV (80.0-100.0) fL MCH (27.0-34.0) pg MCHC (32.0-36.0) % RDW (11.6-17.2) % Plt Count (150-450) th/mm3 MPV (7.0-11.0) fL Neut % (Auto) (16.0-70.0) % Lymph % (Auto) (9.0-44.0) % [place] % (Auto) (0.0-8.0) % Eos % (Auto) (0.0-4.0) % Baso % (Auto) (0.0-2.0) % Neut # (Auto) (1.8-7.7) th/mm3 Lymph # (Auto) (1.0-4.8) th/mm3 [place] # (Auto) (0.0-0.9) th/mm3 Eos # (Auto) (0.0-0.4) th/mm3 Baso # (Auto) (0.0-0.2) th/mm3 WBC Differential Differential Comment PT (9.8-11.6) sec INR Ratio APTT (24.3-30.1) sec Fibrinogen (227-377) mg/dL Puncture Site Patient Temperature O2 Saturation (90-100) % ABG pH (7.380-7.420) ABG pCO2 (38-42) mmHg ABG pO2 (61-120) mmHg ABG HCO3 (22-26) mmol/L ABG O2 Content (12.0-20.0) Vol % ABG Base Excess (-2-2) mmol/L ABG Methemoglobin (0-2) % Noah Test Hemoglobin (12.0-16.0) G/DL Carboxyhemoglobin (0-4) % O2 Delivery Device Vent Setting Inspired O2 % Critical Value Sodium (136-145) meq/L Potassium (3.5-5.1) meq/L Chloride (98-107) meq/L Carbon Dioxide (21.0-32.0) meq/L Anion Gap (5-15) meq/L BUN (7-18) mg/dL Creatinine (0.60-1.30) mg/dL Estimated GFR (>89) mL/min POC Glucose 113 H (68-110) mg/dl Random Glucose (74-106) mg/dL Osmolality (275-295) mosm/kg Lactic Acid 1.7 (0.4-2.0) mmol/L Calcium (8.5-10.1) mg/dL Prot Corrected Calcium (8.5-10.1) mg/dL Phosphorus (2.5-4.9) mg/dL Magnesium (1.5-2.5) mg/dL Total Bilirubin (0.2-1.0) mg/dL AST (15-37) U/L ALT (12-78) U/L Alkaline Phosphatase (45-117) U/L Ammonia (11-32) mcmol/L Total Creatine Kinase (39-308) U/L CK-MB (CK-2) (0.5-3.6) ng/mL CK-MB (CK-2) % (0.0-4.0) % Troponin I (0.02-0.05) ng/mL Total Protein (6.4-8.2) g/dL Albumin (3.4-5.0) g/dL Urine Color (Yellw/Straw) Urine Clarity (Clear) Urine pH (5.0-8.5) Ur Specific [place] (1.002-1.035) Urine Protein (Neg-Trace) mg/dL Urine Glucose (UA) (Negative) mg/dL Urine Ketones (Negative) mg/dL Urine Occult Blood (Negative) Urine Nitrate (Negative) Urine Bilirubin (Negative) Urine Urobilinogen (Less than 2) mg/dL Ur Leukocyte Esterase (Negative) Urine RBC (0-3) /hpf Urine WBC (0-5) /hpf Urine Mucus (Occasional) /lpf Micro UA Comment Ur Microscopic Review Urine Culture Comments Nasal Screen MRSA (PCR) Salicylates Urine Opiates Screen (Neg) Acetaminophen (10.0-30.0) mcg/mL Ur Barbiturates Screen (Neg) Ur Amphetamines Screen (Neg) U Benzodiazepines Scrn (Neg) Urine Cocaine Screen (Neg) U Cannabinoids Screen (Neg) Serum Alcohol Imaging Data Radiologist's impression: Chest X-Ray 04/27/18 11:31 CONCLUSION: ETT in good position. Cardiomegaly with moderate interstitial edema. Head CT 04/27/18 11:31 CONCLUSION: 1. Negative CT Head non contrast. . Abdomen/Pelvis CT 04/27/18 11:35 CONCLUSION: 1. Extensive atelectasis in both lower lobes. 2. The Stone catheter needs to be deflated and advanced into the bladder. The catheter is at the level of the prosthetic urethra. 3. No findings to indicate a bowel obstruction are seen. No free air free fluid is identified. Chest CT 04/27/18 11:35 CONCLUSION: 1. Consolidation both posterior lungs with air bronchograms. This could represent bilateral pneumonia or aspiration. Cervical Spine CT 04/27/18 11:36 CONCLUSION: 1. Negative trauma study. Lumbar Spine CT 04/27/18 11:59 CONCLUSION: 1. Negative for acute process 2. There is no evidence for vertebral compression. Chest X-Ray 04/27/18 12:01 CONCLUSION: ETT in good position. Increasing interstitial edema. Chest X-Ray 04/27/18 16:04 CONCLUSION: 1. Double placement of left internal jugular central venous line with no visualized pneumothorax on the supine study. 2. The patient remains intubated and there are alveolar opacities greatest in the right lung. ECG Data EKG Prior to Arrival: No Attestation: I personally reviewed and interpreted this ECG as follows: Prior ECG tracings: available for review Interpretation: Sinus tachycardia at rate 117, no ST elevation, nonspecific ST changes. Discharge Plan Discharge Disposition Patient Disposition: 02 [place] [facility] [place] Condition: Critical Discharge Details Diagnosis: Suicide attempt by multiple drug overdose, Respiratory failure, Aspiration pneumonia of both lower lobes, Hypotension Physicians Team ED Provider: Cj Hall Primary Care Provider: Henrry Reyes Attending Provider: Benny Parker ED Status: Left Department Discharge Information Discharge Date/Time: 04/27/18 17:15
[2018-04-27 11:52] LABS: Chloride 103 meq/L (98-107); Potassium 3.8 meq/L (3.5-5.1); Sodium 137 meq/L (136-145)
[2018-04-27 11:53] LABS: Activated Partial Thrombo Time 25.3 sec (24.3-30.1); Prothrombin Time 10.3 sec (9.8-11.6)
[2018-04-27 11:59] LABS: Albumin 3.5 g/dL (3.4-5.0); Calcium 7.8 mg/dL (8.5-10.1)
[2018-04-27 12:00] LABS: Anion Gap 9 meq/L (5-15); Blood Urea Nitrogen 14 mg/dL (7-18); Carbon Dioxide 25.5 meq/L (21.0-32.0); Glucose,Random 232 mg/dL (74-106); Magnesium 2.2 mg/dL (1.5-2.5)
[2018-04-27 12:02] LABS: Alanine Aminotransferase 46 U/L (12-78); Aspartate Aminotransferase 51 U/L (15-37)
[2018-04-27 12:03] LABS: Glomerular Filtration Rate 52 mL/min (>89); Total Protein 6.8 g/dL (6.4-8.2)
[2018-04-27 12:05] LABS: Alkaline Phosphatase 80 U/L (45-117)
[2018-04-27 12:21] LABS: ABG Base Excess -0.5 mmol/L (-2-2); ABG PCO2 42 mmHg (38-42); ABG PO2 64 mmHg (61-120)
[2018-04-27] MEDS ORDERED: Sod Chloride 0.9% Inj 1,000 ML IV.SIG ONE (12:30)
--- NOTE | 2018-04-27 12:52 | XR ---
EXAM DATE: 04/27/2018 12:05 PM EDT AGE/SEX: 22 years / Male INDICATIONS: Post intubation CLINICAL DATA: This is the patient's initial encounter. Patient reports that signs and symptoms have been present for 1 day and indicates a pain score of Nonresponsive. MEDICAL/SURGICAL HISTORY: Non-responsive. Non-responsive. COMPARISON: No prior exams available for comparison. FINDINGS: ET tube in good position. Heart is enlarged. Mild interstitial edema is present. There is no pneumoth orax. CONCLUSION: ETT in good position. Cardiomegaly with moderate interstitial edema. Electronically signed by: Zay Gaspar MD 04/27/2018 12:50 PM EDT
--- NOTE | 2018-04-27 12:55 | XR ---
EXAM DATE: 04/27/2018 12:22 PM EDT AGE/SEX: 22 years / Male INDICATIONS: Readjustment of Endotracheal tube CLINICAL DATA: This is the patient's subsequent encounter. Patient reports that signs and symptoms h ave been present for 1 day and indicates a pain score of Nonresponsive. MEDICAL/SURGICAL HISTORY: Non-responsive. Non-responsive. COMPARISON: [facility], CHEST 1V SINGLE AP, 04/27/2018. . FINDINGS: ET tube in good position cardiomegaly with increasing interstitial edema. No pneumothorax. CONCLUSION: ETT in good position. Increasing interstitial edema. Electronically signed by: Zay Gaspar MD 04/27/2018 12:54 PM EDT
[2018-04-27] MEDS ORDERED: Piperacil/Tazo 3.375 GM Premix 50 ML IV.SIG ONE (12:56)
[2018-04-27] MEDS ORDERED: Vancomycin Inj 1 GM/200 ML PIGGYBACK IV.SIG SCH (13:00)
--- NOTE | 2018-04-27 14:12 | CT ---
EXAM DATE: 04/27/2018 2:08 PM EDT AGE/SEX: 22 years / Male INDICATIONS: Found on floor unresponsive. Altered mental status. CLINICAL DATA: This is the patient's initial encounter. Patient reports that signs and symptoms have been present for 1 day and indicates a pain score of Nonresponsive. MEDICAL/SURGICAL HISTORY: None. Tonsillectomy. RADIATION DOSE: 37.70 CTDI (mGy) COMPARISON: [facility], CT HEAD W/O CONTRAST, 04/27/2018. . TECHNIQUE: Contiguous axial images were obtained using helical multirow detector technique. The vol umetric data was post-processed with multiplanar reconstruction in oblique axial, sagittal, and coron al planes. Using automated exposure control and adjustment of the mA and/or kV according to patient s ize, radiation dose was kept as low as reasonably achievable to obtain optimal diagnostic quality maxx ges. DICOM format image data is available electronically for review and comparison. FINDINGS: Vertebrae: Normal vertebral body height. Discs: Preserved in height. Alignment: Normal. No subluxation. C2-3: The bony spinal canal is normal in size. No evidence of disc bulge or herniation. The neural foramina are bilaterally patent. C3-4: The bony spinal canal is normal in size. No evidence of disc bulge or herniation. The neural foramina are bilaterally patent. C4-5: The bony spinal canal is normal in size. No evidence of disc bulge or herniation. The neural foramina are bilaterally patent. C5-6: The bony spinal canal is normal in size. No evidence of disc bulge or herniation. The neural foramina are bilaterally patent. C6-7: The bony spinal canal is normal in size. No evidence of disc bulge or herniation. The neural foramina are bilaterally patent. C7-T1: The bony spinal canal is normal in size. No evidence of disc bulge or herniation. The neura l foramina are bilaterally patent. CONCLUSION: 1. Negative trauma study. Electronically signed by: Alebrt Hebert MD 04/27/2018 2:11 PM EDT
--- NOTE | 2018-04-27 14:16 | CT ---
EXAM DATE: 04/27/2018 2:03 PM EDT AGE/SEX: 22 years / Male INDICATIONS: Found on floor unresponsive. Altered mental status. CLINICAL DATA: This is the patient's initial encounter. Patient reports that signs and symptoms have been present for 1 day and indicates a pain score of Nonresponsive. MEDICAL/SURGICAL HISTORY: None. Tonsillectomy. RADIATION DOSE: 64.52 CTDI (mGy) ; Patient body habitus COMPARISON: No prior exams available for comparison. TECHNIQUE: CT of the head without contrast. Using automated exposure control and adjustment of the mA and/or kV according to patient size, radiation dose was kept as low as reasonably achievable to ob tain optimal diagnostic quality images. DICOM format image data is available electronically for revi ew and comparison. FINDINGS: Cerebrum: The ventricles are normal for age. No evidence of midline shift, mass lesion, hemorrhage or acute infarction. No extraaxial fluid collections are seen. Posterior Fossa: The cerebellum and brainstem are intact. The 4th ventricle is midline. The cerebe llopontine angle is unremarkable. Extracranial: The visualized portion of the orbits is intact. Skull: The calvaria is intact. No evidence of skull fracture. CONCLUSION: 1. Negative CT Head non contrast. . Electronically signed by: Michael Gaspar MD 04/27/2018 2:15 PM EDT
--- NOTE | 2018-04-27 14:20 | CT ---
EXAM DATE: 04/27/2018 2:15 PM EDT AGE/SEX: 22 years / Male INDICATIONS: Found unresponsive. Altered mental status. CLINICAL DATA: This is the patient's initial encounter. Patient reports that signs and symptoms have been present for 1 day and indicates a pain score of Nonresponsive. MEDICAL/SURGICAL HISTORY: None. Tonsillectomy. RADIATION DOSE: 32.14 CTDI (mGy) ; Combined studies ; Patient body habitus COMPARISON: No prior exams available for comparison. TECHNIQUE: Multiple contiguous axial images were obtained through the abdomen. Images were obtained using multiple row detector helical technique. Using automated exposure control and adjustment of the mA and/or kV according to patient size, radiation dose was kept as low as reasonably achievable to o btain optimal diagnostic quality images. DICOM format image data is available electronically for rev iew and comparison. FINDINGS: Imaging through the lung bases demonstrate extensive atelectasis in both lower lobes. No significant effusion is identified. The heart is normal in size. The appearance of the liver, spleen, pancreas, adrenal glands and kidneys is within normal limits. The abdominal aorta is normal in caliber. There is no retroperitoneal adenopathy. No free air free fl uid is seen. The visualized loops of small and large bowel are unremarkable. The anterior abdominal wall is intact. There is no free fluid within the pelvis. No iliac or inguinal adenopathy is present. Note is made of a Stone catheter. This does not appear to be within the bladder. This appears to be a t the level the prosthetic urethra. CONCLUSION: 1. Extensive atelectasis in both lower lobes. 2. The Stone catheter needs to be deflated and advanced into the bladder. The catheter is at the lev el of the prosthetic urethra. 3. No findings to indicate a bowel obstruction are seen. No free air free fluid is identified. Electronically signed by: Michael Gaspar MD 04/27/2018 2:19 PM EDT
--- NOTE | 2018-04-27 14:27 | CT ---
EXAM DATE: 04/27/2018 2:17 PM EDT AGE/SEX: 22 years / Male INDICATIONS: Found unresponsive. Altered mental status. CLINICAL DATA: This is the patient's initial encounter. Patient reports that signs and symptoms have been present for 1 day and indicates a pain score of Nonresponsive. MEDICAL/SURGICAL HISTORY: None. Tonsillectomy. RADIATION DOSE: 32.14 CTDI (mGy) ; Combined studies ; Patient body habitus COMPARISON: No prior exams available for comparison. TECHNIQUE: Multiple contiguous axial images were obtained through the chest without contrast. Image s were obtained in suspended respiration using multiple row detector helical technique. Using automa manuel exposure control and adjustment of the mA and/or kV according to patient size, radiation dose was kept as low as reasonably achievable to obtain optimal diagnostic quality images. DICOM format imag e data is available electronically for review and comparison. FINDINGS: Study is degraded by mild motion and streak artifact. Lungs: There is dense consolidation in both posterior lungs with air bronchograms. Mediastinum: There is good visualization of the great vessels of the middle mediastinum. No evidenc e of mediastinal or hilar adenopathy/mass. The endotracheal tube is noted in place. The heart size ap pears mildly prominent. Pleurae: No evidence of focal thickening or pleural effusion. Axillae: Unremarkable. Bony Structures: Unremarkable. Miscellaneous: The examination was extended to include the upper abdomen, and both adrenal glands ar e normal in size and configuration. CONCLUSION: 1. Consolidation both posterior lungs with air bronchograms. This could represent bilateral pneumoni a or aspiration. Electronically signed by: Albert Hebert MD 04/27/2018 2:26 PM EDT
[2018-04-27 14:32] LABS: ABG Base Excess -1.5 mmol/L (-2-2); ABG PCO2 39 mmHg (38-42); ABG PO2 94 mmHg (61-120)
--- NOTE | 2018-04-27 14:34 | CT ---
EXAM DATE: 04/27/2018 2:29 PM EDT AGE/SEX: 22 years / Male INDICATIONS: Found on floor unresponsive. Altered mental status. CLINICAL DATA: This is the patient's initial encounter. Patient reports that signs and symptoms have been present for 1 day and indicates a pain score of Nonresponsive. MEDICAL/SURGICAL HISTORY: None. Tonsillectomy. RADIATION DOSE: . CTDI (mGy) ; Reconstructed from previous dataset, no dose COMPARISON: No prior exams available for comparison. TECHNIQUE: Contiguous axial images were acquired with a multirow detector CT scanner without contras t. Multiplanar reconstructions in the sagittal and coronal plane were also performed. Using automate d exposure control and adjustment of the mA and/or kV according to patient size, radiation dose was k ept as low as reasonably achievable to obtain optimal diagnostic quality images. DICOM format image data is available electronically for review and comparison. FINDINGS: Vertebrae: Normal vertebral body height. Alignment: Normal. No subluxation. T12-L1: The thecal sac has a normal diameter. No evidence of disc bulge or protrusion. The neural foramina are patent bilaterally. L1-L2: The thecal sac has a normal diameter. No evidence of disc bulge or protrusion. The neural f oramina are patent bilaterally. L2-L3: The thecal sac has a normal diameter. No evidence of disc bulge or protrusion. The neural f oramina are patent bilaterally. L3-L4: The thecal sac has a normal diameter. No evidence of disc bulge or protrusion. The neural f oramina are patent bilaterally. L4-L5: The thecal sac has a normal diameter. No evidence of disc bulge or protrusion. The neural f oramina are patent bilaterally. L5-S1: The thecal sac has a normal diameter. No evidence of disc bulge or protrusion. The neural f oramina are patent bilaterally. CONCLUSION: 1. Negative for acute process 2. There is no evidence for vertebral compression. Electronically signed by: Zay Gaspar MD 04/27/2018 2:33 PM EDT
[2018-04-27 14:40] LABS: Bilirubin,Urine Negative (Negative); Clarity,Urine Slightly Cloudy (Clear); Color,Urine Yellow (Yellw/Straw); Glucose,Urine (UA) 250 mg/dL (Negative); Leukocyte Esterase,Urine Negative (Negative); Nitrite,Urine Negative (Negative); PH,Urine 5.5 (5.0-8.5); Specific Gravity,Urine Greater/Equal 1.030 (1.002-1.035); Urobilinogen,Urine 0.2 mg/dL (Less than 2)
[2018-04-27 14:47] LABS: RBC,Urine Innumerable /hpf (0-3)
[2018-04-27 14:48] LABS: Mucus,Urine Few /lpf (Occasional); WBC,Urine 0-5 /hpf (0-5)
[2018-04-27 14:56] LABS: Barbiturate Screen,Urine Neg (Neg)
[2018-04-27 15:04] LABS: Amphetamine Screen,Urine Neg (Neg)
[2018-04-27 15:06] LABS: Cannabinoid Screen,Urine Neg (Neg)
[2018-04-27 15:08] LABS: Cocaine Screen,Urine Neg (Neg)
[2018-04-27 15:11] LABS: Opiate Screen,Urine Neg (Neg)
[2018-04-27] MEDS ORDERED: Bisacodyl 10 MG Supp RECTAL PRN (15:21)
[2018-04-27] MEDS ORDERED: Norepinephrine Inj 16 MG in Sodium Chlor 0.9% Inj 234 ML IV.CONT PRN (15:29)
[2018-04-27] MEDS ORDERED: Dextrose 50% in Water 50 ML Vial IV.PUSH PRN (15:32)
[2018-04-27] MEDS ORDERED: Magnesium Oxide 400 MG Tablet PO PRN (15:33)
[2018-04-27] MEDS ORDERED: Sodium Phosphate Inj 30 MMOL in Sodium Chlor 0.9% Inj 250 ML IV.SIG PRN (15:33)
[2018-04-27] MEDS ORDERED: Magnesium Sulfate Inj 4 GM in Sodium Chlor 0.9% Inj 92 ML IV.SIG PRN (15:33)
[2018-04-27] MEDS ORDERED: Magnesium Sulfate Inj 2 GM in Sodium Chlor 0.9% Inj 96 ML IV.SIG PRN (15:33)
[2018-04-27] MEDS ORDERED: Potassium Phosphate 500 MG Soluble Tablet PO PRN ×2 (15:33)
[2018-04-27] MEDS ORDERED: Potassium Phosphate Inj 30 MMOL in Sodium Chlor 0.9% Inj 250 ML IV.SIG PRN (15:33)
[2018-04-27 16:22] LABS: Magnesium 1.8 mg/dL (1.5-2.5)
[2018-04-27 16:26] LABS: Phosphorus 2.7 mg/dL (2.5-4.9)
--- NOTE | 2018-04-27 16:33 | XR ---
EXAM DATE: 04/27/2018 4:28 PM EDT AGE/SEX: 22 years / Male INDICATIONS: Central line placement. CLINICAL DATA: This is the patient's subsequent encounter. Patient reports that signs and symptoms h ave been present for 1 day and indicates a pain score of Nonresponsive. MEDICAL/SURGICAL HISTORY: Non-responsive. Non-responsive. COMPARISON: [facility], CHEST 1V SINGLE AP, 04/27/2018. . FINDINGS: A single AP supine view of the chest was obtained and demonstrates interval placement of a left inter nal jugular central venous line with the tip projected over the cava. There is no visualized pneumoth orax on the supine study. Hazy alveolar opacities remain in the lungs right greater than left. The he art size remains prominent. There is no distinct effusion. Endotracheal tube remains in place with th e tip at the level of thoracic inlet. CONCLUSION: 1. Double placement of left internal jugular central venous line with no visualized pneumothorax on the supine study. 2. The patient remains intubated and there are alveolar opacities greatest in the right lung. Electronically signed by: Albert Hebert MD 04/27/2018 4:31 PM EDT
[2018-04-27] MEDS: Sod Chloride 0.9% Inj 1,000 ML IV.CONT SCH (16:50)
--- NOTE | 2018-04-27 18:40 | P.HPCC ---
History of Present Illness Primary Care Physician: Henrry Reyes MD Chief Complaint: AMS, resp failure History of Present Illness: Patient is approximately 22 years old male obese, was found on the floor by a family member, downtime is unknown. EMS was called, patient was given Narcan with no response, he was intubated on the scene, apparently GCS 3. Found bag of PCP next to the patient. Patient has history of psychiatric disorder ? bipolar disorder and I am told he has attempted suicide in the past. There is also mention about suspicion of ethylene glycol ingestion, but his serum osmolality is 307 his osmolar gap is only 13. Bicarb is 26, ethylene glycol seems unlikely. Ethanol was negative urine drug screen only positive for benzo. I evaluated the patient in the ICU at the [facility]. Patient had a CT of the head which was negative. Rest of the workup unremarkable except for bibasilar atelectasis/aspiration pneumonia. Patient's white count is elevated at 17.1, glucose is 232 lactic acid was 2.8. He received multiple fluid boluses. At this time he is not on any sedation but remains unresponsive no response to deep pain - Diagnosis (1) Acute metabolic encephalopathy (2) Acute respiratory failure (3) Aspiration pneumonitis (4) Leukocytosis (5) Hyperglycemia (6) Hypotension (7) Suicide attempt by multiple drug overdose (8) PCP intoxication (9) Psychiatric disorder Inpatient Certification: I certify that the inpatient services were ordered in accordance with Medicare regulations governing the order. This includes certification that hospital inpatient services are reasonable and necessary and in the case of services not specified as inpatient-only under 42 CFR 419.22(n), that they are appropriately provided as inpatient services in accordance to with the 2-midnight benchmark under 43 CFR 412.3(e) Estimated Total Length of Stay (Days): 5 Plans for Post Hospital Care: Other [facility] - History History Provided By: Family Member - Medical History Medical History: Medical History (Last Updated 04/27/18 @ 12:31 by Monica Davies RN) Affective bipolar disorder - Surgical History Surgical History: Surgical History (Last Updated 04/27/18 @ 12:31 by Monica Davies RN) Hx of tonsillectomy - Tobacco History Second Hand Smoke Exposure: No Tobacco Use In Past 30 Days: No Smoking Status: Current every day smoker Tobacco Type: E-Cigarettes - Alcohol History How Often Do You Have a Drink Containing Alcohol: Never - Substance Use History Substance History: Active Abuse - Travel History Recent Travel in the [place] Within the Last 8 Weeks: No Recent Travel Out of the Country Within the Last 8 Weeks: No - Immunization History Tetanus Immunization: Unsure Medications and Allergies Active Medications: Active Medications Al Hydroxide/Mg Hydroxide (Milk Of Magnmigue Liq) 30 ml PO Q12H PRN PRN Reason: Mild Constipation Albuterol (Albuterol Neb (Prn)) 2.5 mg NEB Q2HR NEB PRN PRN Reason: SHORTNESS OF BREATH/WHEEZING Albuterol (Duoneb Neb (Susan)) 1 ampul NEB Q4HR NEB [facility] Last Admin: 04/27/18 16:26 Dose: 1 ampul Artificial Tears (Tears Naturale Opth Drops) 1 drop EACH EYE Q8H [facility] Bisacodyl (Dulcolax Supp) 10 mg RECTAL DAILY PRN PRN Reason: SEVERE CONSITIPATION Chlorhexidine Gluconate (Chlorhexidine 2% Cloth) 3 pack TOPICAL DAILY@0400 [facility] Stop: 05/03/18 03:59 Chlorhexidine Gluconate (Chlorhexidine 2% Cloth) 3 pack TOPICAL DAILY@0400 PRN PRN Reason: Extra cloth needed Stop: 05/03/18 03:59 Dextrose (D50w Vial) 50 ml IV.PUSH UNSCH PRN PRN Reason: PER HYPOGLYCEMIA PROTOCOL Glucagon (Glucagon Inj) 1 mg OTHER PRN PRN PRN Reason: for Hypoglycemia Protocol Heparin Sodium (Porcine) (Heparin Inj) 5,000 units SQ Q12H [facility] Vancomycin/Sodium Chloride (Vancomycin Inj) 1 gm in 200 mls @ 200 mls/hr IV.SIG FLAME DEGREASER [facility] Sodium Chloride (Ns Inj) 1,000 mls @ 84 mls/hr IV.CONT .[id number] [facility] Last Admin: 04/27/18 16:50 Dose: 84 mls/hr Norepinephrine Bitartrate 16 (mg/ Sodium Chloride) 250 mls @ 1.87 mls/hr IV.CONT TITRATE PRN; Protocol PRN Reason: See Protocol Last Admin: 04/27/18 16:56 Dose: 2 mcg/min, 1.87 mls/hr Magnesium Sulfate 4 gm/ Sodium (Chloride) 100 mls @ 50 mls/hr IV.SIG UNSCH PRN PRN Reason: For Magnesium 0.9 - 1.1 mg/dL Potassium Chloride (Kcl 40 Meq Premix Inj) 40 meq in 100 mls @ 25 mls/hr IV.SIG Q2H PRN PRN Reason: For Potassium 2.8 - 3.2 mEq/L Potassium Chloride (Kcl 20 Meq Premix Inj) 20 meq in 100 mls @ 50 mls/hr IV.SIG Q2H PRN PRN Reason: For Potassium 3.3 - 3.5 mEq/L Potassium Chloride (Kcl 40 Meq Premix Inj) 40 meq in 100 mls @ 25 mls/hr IV.SIG UNSCH PRN PRN Reason: For Potassium 3.3 - 3.5 mEq/L Potassium Chloride (Kcl 20 Meq Premix Inj) 20 meq in 100 mls @ 50 mls/hr IV.SIG Q2H PRN PRN Reason: For Potassium 2.8 - 3.2 mEq/L Potassium Phosphate 30 mmol/ (Sodium Chloride) 260 mls @ 42 mls/hr IV.SIG UNSCH PRN PRN Reason: SEE LABEL COMMENTS Magnesium Sulfate 2 gm/ Sodium (Chloride) 100 mls @ 50 mls/hr IV.SIG UNSCH PRN PRN Reason: For Magnesium 1.2 - 1.6 mg/dL Sodium Phosphate 30 mmol/ (Sodium Chloride) 260 mls @ 42 mls/hr IV.SIG UNSCH PRN PRN Reason: For Phosphorus < 2.5 mg/dL Propofol (Diprivan 1000 Mg/100 Ml Inj) 1,000 mg in 100 mls @ 4.77 mls/hr IV.CONT TITRATE PRN; Protocol PRN Reason: Per Protocol Fentanyl (Fentanyl 10 Mcg/Ml Premix Drip) 2,500 mcg in 250 mls @ 5 mls/hr IV.SIG TITRATE PRN; Protocol PRN Reason: Per Protocol Piperacillin/Tazobactam/Dextrose (Zosyn 4.5 Gm Premix) 4.5 gm in 100 mls @ 200 mls/hr IV.SIG Q6H SUSAN Insulin Aspart (Novolog Insulin Correctional Sugar Inj) 0 unit SQ Q6HR SUSAN; Protocol Lactulose (Lactulose Liq) 30 ml PO DAILY PRN PRN Reason: SEVERE CONSITIPATION Magnesium Oxide (Mag-Ox) 800 mg PO UNSCH PRN PRN Reason: For Magnesium 1.2 - 1.6 mg/dL Ondansetron HCl (Zofran Inj) 4 mg IV.PUSH Q6H PRN PRN Reason: NAUSEA OR VOMITING Pantoprazole Sodium (Protonix Inj) 40 mg IV.PUSH DAILY SUSAN Potassium Bicarb/Potassium Chloride (K-Lyte Cl Eff) 50 meq PO UNSCH PRN PRN Reason: For Potassium 3.3 - 3.5 mEq/L Potassium Phosphate (K-Phos Original) 2,000 mg PO Q4H PRN PRN Reason: Phosphorus Less Than 2.5 mg/dL Potassium Phosphate (K-Phos Original) 2,000 mg PO UNSCH PRN PRN Reason: SEE LABEL COMMENTS Senna/Docusate Sodium (Jemima-Colace) 1 tab PO BID SUSAN Sennosides (Senokot) 17.2 mg PO Q12H PRN PRN Reason: Moderate Constipation Sodium Chloride (Ns Flush) 2 ml IV.FLUSH BID SUSAN Sodium Chloride (Ns Flush) 2 ml IV.FLUSH PRN PRN PRN Reason: FLUSH AFTER USING IV ACCESS Terbutaline Sulfate (Brethine Inj) 1 mg SQ UNSCH PRN PRN Reason: For Extravasation Allergies Allergy/AdvReac Type Severity Reaction Status Date / Time shellfish derived Allergy Anaphylaxis Verified 04/27/18 13:21 Home Medications Medication Instructions Recorded Confirmed Type Unable to Obtain Home Meds 04/27/18 04/27/18 History Results - Labs CBC & Chem 7: 04/27/18 11:30 04/27/18 11:30 Labs: Short CBC 04/27/18 Range/Units 11:30 WBC 17.1 H (4.0-11.0) th/mm3 Hgb 13.7 (13.0-17.0) gm/dL Hct 40.4 (39.0-51.0) % Plt Count 329 (150-450) th/mm3 BMP 04/27/18 11:30 Sodium 137 Potassium 3.8 Chloride 103 Carbon Dioxide 25.5 BUN 14 Creatinine 1.20 Calcium 7.8 L Cardiac Enzymes 04/27/18 Range/Units 11:30 Troponin I Less than 0.02 L (0.02-0.05) ng/mL Liver Function 04/27/18 Range/Units 11:30 Total Bilirubin 0.3 (0.2-1.0) mg/dL AST 51 H (15-37) U/L ALT 46 (12-78) U/L Alkaline Phosphatase 80 (45-117) U/L Albumin 3.5 (3.4-5.0) g/dL Urine 04/27/18 Range/Units 14:31 Urine Color Yellow (Yellw/Straw) Urine Clarity Slightly cloudy (Clear) Urine pH 5.5 (5.0-8.5) Ur Specific [place] Greater/equal 1.030 (1.002-1.035) Urine Protein 100 H (Neg-Trace) mg/dL Urine Glucose (UA) 250 H (Negative) mg/dL - Imaging Impressions Chest X-Ray 04/27/18 11:31 CONCLUSION: ETT in good position. Cardiomegaly with moderate interstitial edema. Head CT 04/27/18 11:31 CONCLUSION: 1. Negative CT Head non contrast. . Abdomen/Pelvis CT 04/27/18 11:35 CONCLUSION: 1. Extensive atelectasis in both lower lobes. 2. The Stone catheter needs to be deflated and advanced into the bladder. The catheter is at the level of the prosthetic urethra. 3. No findings to indicate a bowel obstruction are seen. No free air free fluid is identified. Chest CT 04/27/18 11:35 CONCLUSION: 1. Consolidation both posterior lungs with air bronchograms. This could represent bilateral pneumonia or aspiration. Cervical Spine CT 04/27/18 11:36 CONCLUSION: 1. Negative trauma study. Lumbar Spine CT 04/27/18 11:59 CONCLUSION: 1. Negative for acute process 2. There is no evidence for vertebral compression. Chest X-Ray 04/27/18 12:01 CONCLUSION: ETT in good position. Increasing interstitial edema. Chest X-Ray 04/27/18 16:04 CONCLUSION: 1. Double placement of left internal jugular central venous line with no visualized pneumothorax on the supine study. 2. The patient remains intubated and there are alveolar opacities greatest in the right lung. Exam Vital signs: Vital Signs 04/27/18 11:30 04/27/18 11:32 04/27/18 12:19 Temperature 98.4 F Pulse Rate 117 H 117 H Respiratory Rate 24 Blood Pressure 96/51 L Pulse Oximetry 98 92 L 04/27/18 12:20 04/27/18 12:41 04/27/18 12:51 Temperature Pulse Rate 123 H Respiratory Rate 16 Blood Pressure 105/56 L Pulse Oximetry 92 L 92 L 94 L 04/27/18 14:00 04/27/18 14:07 04/27/18 14:10 Temperature Pulse Rate 102 H Respiratory Rate 24 Blood Pressure 86/36 L Pulse Oximetry 100 94 L 04/27/18 14:41 04/27/18 14:53 04/27/18 15:30 Temperature Pulse Rate 106 H 102 H 98 H Respiratory Rate 16 16 Blood Pressure 76/33 L 74/34 L 74/34 L Pulse Oximetry 04/27/18 16:00 04/27/18 16:29 04/27/18 17:45 Temperature Pulse Rate 102 H 103 H Respiratory Rate 24 Blood Pressure 111/44 L Pulse Oximetry 92 L 04/27/18 18:07 Temperature Pulse Rate Respiratory Rate 24 Blood Pressure Pulse Oximetry 100 Intake & Output 04/26/18 04/27/18 04/27/18 18:59 06:59 18:59 Intake Total 2049 Balance 2049 Weight 159 kg Intake: IV 2049 NS Inj 1,000 ML @ 1000 mls/hr 1000 / 1000 IV.CONT .Q1H SUSAN Rx#:[id number] Zosyn 3.375 GM Premix 50 ML @ 50 / 50 100 mls/hr IV.SIG ONCE ONE Rx#: [id number] NS Inj 1,000 ML @ Wide Open IV. 1000 / 1000 SIG BOLUS ONE Rx#:[id number] Narrative: GENERAL: Obese male approximately 22, intubated, unresponsive. SKIN:warm/dry. HEAD: Normocephalic. EYES: Pupils equal, 2 mm, sluggish, no scleral icterus. No injection or drainage. ENT: No nasal bleeding or discharge. Mucous membranes pink and moist. Orotracheally intubated NECK: Trachea midline. No JVD. CARDIOVASCULAR: Regular rate and rhythm. No murmur appreciated. Hypotensive on 2 mcg/min of Levophed RESPIRATORY: Intubated, on the vent, bilateral rhonchi. Diminished breath sounds at the bases GASTROINTESTINAL: Abdomen soft, non-tender, nondistended. Hepatic and splenic margins not palpable. MUSCULOSKELETAL: No obvious deformities. No clubbing. No cyanosis. No edema. NEUROLOGICAL: Patient is intubated, unresponsive, pupils sluggish, GCS 3 T. Patient is unresponsive to deep painful stimuli I cannot elicit any reflexes Septic Shock Reassessment Septic shock perfusion: reassessment completed Caprini VTE Risk Assessment Caprini VTE Risk Assessment: Moderate/High Risk (score >= 2) Caprini Risk Assessment Model: Point Value = 1 Point Value = 2 Point Value = 3 Point Value = 5 Age 41-60 Minor surgery BMI > 25 kg/m2 Swollen legs Varicose veins or History of unexplained or recurrent spontaneous Oral contraceptives or hormone replacement Sepsis (< 1 month) Serious lung disease, including pneumonia (< 1 month) Abnormal pulmonary function Acute myocardial infarction Congestive heart failure (< 1 month) History of inflammatory bowel disease Medical patient at bed rest Age 61-74 Arthroscopic surgery Major open surgery (> 45 min) Laparoscopic surgery (> 45 min) Malignancy Confined to bed (> 72 hours) Immobilizing plaster cast Central venous access Age >= 75 History of VTE Family history of VTE Factor V Leiden Prothrombin [id number] Lupus anticoagulant Anticardiolipin antibodies Elevated serum homocysteine Heparin-induced thrombocytopenia Other congenital or acquired thrombophilia Stroke (< 1 month) Elective arthroplasty Hip, pelvis, or leg fracture Acute spinal cord injury (< 1 month) Prophylaxis Regimen: Total Risk Factor Score Risk Level Prophylaxis Regimen 0-1 Low Early ambulation 2 Moderate Order ONE of the following: *Sequential Compression Device (SCD) *Heparin 5000 units SQ BID 3-4 Higher Order ONE of the following medications: *Heparin 5000 units SQ TID *Enoxaparin/Lovenox 40 mg SQ daily (WT < 150 kg, CrCl > 30 mL/min) *Enoxaparin/Lovenox 30 mg SQ daily (WT < 150 kg, CrCl > 10-29 mL/min) *Enoxaparin/Lovenox 30 mg SQ BID (WT < 150 kg, CrCl > 30 mL/min) AND/OR *Sequential Compression Device (SCD) 5 or more Highest Order ONE of the following medications: *Heparin 5000 units SQ TID (Preferred with Epidurals) *Enoxaparin/Lovenox 40 mg SQ daily (WT < 150 kg, CrCl > 30 mL/min) *Enoxaparin/Lovenox 30 mg SQ daily (WT < 150 kg, CrCl > 10-29 mL/min) *Enoxaparin/Lovenox 30 mg SQ BID (WT < 150 kg, CrCl > 30 mL/min) AND *Sequential Compression Device (SCD) Assessment and Plan - Problem List (1) Acute metabolic encephalopathy Code(s): G93.41 - Metabolic encephalopathy Status: Acute (2) Acute respiratory failure Code(s): J96.00 - Acute respiratory failure, unspecified whether with hypoxia or hypercapnia Status: Acute (3) Aspiration pneumonitis Code(s): J69.0 - Pneumonitis due to inhalation of food and vomit Status: Acute (4) Leukocytosis Code(s): D72.829 - Elevated white blood cell count, unspecified Status: Acute (5) Hyperglycemia Code(s): R73.9 - Hyperglycemia, unspecified Status: Acute (6) Hypotension Code(s): I95.9 - Hypotension, unspecified Status: Acute (7) Suicide attempt by multiple drug overdose Code(s): T50.902A - Poisoning by unspecified drugs, medicaments and biological substances, intentional self-harm, initial encounter Status: Acute (8) PCP intoxication Code(s): F16.929 - Hallucinogen use, unspecified with intoxication, unspecified Status: Acute (9) Psychiatric disorder Code(s): F99 - Mental disorder, not otherwise specified Status: Chronic - Assessment and Plan Plan: NEURO: Acute metabolic encephalopathy Suspected PCP overdose Suspected ethylene glycol overdose Suicide attempt -PCP if was found near the patient continue supportive care -Propofol and fentanyl for sedation and ventilator synchrony -Patient has a bicarb of 26, osmolar gap is only 13, this makes ethylene glycol toxicity unlikely -Urine drug screen positive for benzos only -We will contact poison control -Psychiatric consult after neurological recovery -CT of the head negative RESP/ID: Acute respiratory failure Bibasilar aspiration pneumonitis -PRVC/AC -Ventilator bundle -DuoNeb every 6 hours scheduled and as needed -Check sputum culture -Zosyn 4.5 g every 6 hours scheduled -SBT when appropriate CV: Hypotension Lactic acidosis -Fluid resuscitated in the ED, additional 2 L normal saline boluses ordered -Levophed to keep map above 65 currently on 2 mcg/min -Normal saline IV fluids at 84 ml per hour GI: -N.p.o., IV famotidine : -Monitor renal function closely. Stone catheter. -Watch closely for renal failure HEME: -Monitor CBC, coags ENDO: Hyperglycemia -Electrolyte replacement per protocol -Sliding scale insulin PROPH: -Bilateral lower extremity SCDs. Subcu heparin/famotidine LINES: -Utilize peripheral IVs, LIJ central line placed in ED CC time 45 min Code Status: Full
[2018-04-27] MEDS ORDERED: Sod Chloride 0.9% Inj 1,000 ML IV.SIG SCH (18:45)
[2018-04-27] MEDS ORDERED: Vancomycin Inj 1,000 MG in Sodium Chlor 0.9% Inj 250 ML IV.SIG SCH (19:15)
[2018-04-27] MEDS ORDERED: Sod Chloride 0.9% Inj 2,000 ML IV.SIG SCH (19:30)
[2018-04-27] MEDS: Artificial Tears Opth Drops 15 ML Bottle EACH EYE SCH (19:47)
[2018-04-27] MEDS: Piperacil/Tazo 4.5 GM Premix 4.5 GM/100 ML BAG IV.SIG SCH (20:06)
[2018-04-27] MEDS: Heparin - SQ 10,000 UNITS/ML Vial SQ SCH (20:07)
[2018-04-27] MEDS: Senna/Docusate Sodium 8.6/50 MG Tablet PO SCH (20:07)
[2018-04-27] MEDS: Insulin NovoLOG Aspart Correctional Sugar Inj SQ SCH ×2 (20:11→23:37)
[2018-04-27 21:47] LABS: Calcium 7.5 mg/dL (8.5-10.1); Carbon Dioxide 23.9 meq/L (21.0-32.0); Potassium 4.4 meq/L (3.5-5.1)
[2018-04-27 22:01] LABS: Troponin I 0.17 ng/mL (0.02-0.05)
[2018-04-27 22:13] LABS: CKMB Percent 0.8 % (0.0-4.0); Creatine Kinase MB 10.6 ng/mL (0.5-3.6)
[2018-04-27 22:38] LABS: ABG Base Excess -3.9 mmol/L (-2-2); ABG PCO2 39 mmHg (38-42); ABG PO2 86 mmHG (61-120)
[2018-04-28 01:56] LABS: Alanine Aminotransferase 40 U/L (9-52); Albumin 2.9 g/dL (3.4-5.0); Alkaline Phosphatase 62 U/L (45-117); Anion Gap 8 meq/L (5-15); Aspartate Aminotransferase 41 U/L (15-39); Blood Urea Nitrogen 13 mg/dL (7-18); Calcium 7.4 mg/dL (8.5-10.1); Carbon Dioxide 24.8 meq/L (21.0-32.0); Chloride 110 meq/L (98-107); Glomerular Filtration Rate Greater Than 89 mL/min (>89); Glucose,Random 115 mg/dL (74-106); Potassium 4.4 meq/L (3.5-5.1); Sodium 143 meq/L (136-145); Total Protein 5.9 g/dL (6.4-8.2)
[2018-04-28] MEDS: Artificial Tears Opth Drops 15 ML Bottle EACH EYE SCH ×3 (02:16→15:45)
[2018-04-28] MEDS: Piperacil/Tazo 4.5 GM Premix 4.5 GM/100 ML BAG IV.SIG SCH ×4 (02:16→21:48)
[2018-04-28] MEDS: Sod Chloride 0.9% Inj 1,000 ML IV.CONT SCH ×2 (03:08→15:42)
[2018-04-28] MEDS: Chlorhexidine Gluconate 2% 1 Pack (2 Cloths) TOPICAL SCH (03:08)
[2018-04-28] MEDS ORDERED: Chlorhexidine Gluconate 2% 1 Pack (2 Cloths) TOPICAL PRN (04:00)
[2018-04-28 05:06] LABS: Baso % (Auto) 0.1 % (0.0-2.0); Eos % (Auto) 0.1 % (0.0-4.0); Hematocrit 34.3 % (39.0-51.0); Hemoglobin 11.8 gm/dL (13.0-17.0); Lymph # (Auto) 2.7 th/mm3 (1.0-4.8); Lymph % (Auto) 20.4 % (9.0-44.0); Mean Corpuscular HGB Conc 34.5 % (32.0-36.0); Mean Corpuscular Hemoglobin 29.9 pg (27.0-34.0); Mean Corpuscular Volume 86.5 fL (80.0-100.0); Mono # (Auto) 0.7 th/mm3 (0.0-0.9); Mono % (Auto) 5.3 % (0.0-8.0); Neut # (Auto) 9.8 th/mm3 (1.8-7.7); Neut % (Auto) 74.1 % (16.0-70.0); Platelet Count 217 th/mm3 (150-450); Red Blood Count 3.96 mil/mm3 (4.50-5.90); Red Cell Distribution Width 15.3 % (11.6-17.2); White Blood Count 13.2 th/mm3 (4.0-11.0)
[2018-04-28] MEDS: Heparin - SQ 10,000 UNITS/ML Vial SQ SCH ×2 (05:11→18:27)
[2018-04-28] MEDS: Insulin NovoLOG Aspart Correctional Sugar Inj SQ SCH ×3 (05:11→18:26)
[2018-04-28 05:23] LABS: INR 1.1 Ratio; Prothrombin Time 10.8 sec (9.8-11.6)
[2018-04-28 05:31] LABS: Albumin 2.9 g/dL (3.4-5.0); Anion Gap 5 meq/L (5-15); Aspartate Aminotransferase 42 U/L (15-39); Blood Urea Nitrogen 13 mg/dL (7-18); Calcium 7.5 mg/dL (8.5-10.1); Carbon Dioxide 27.2 meq/L (21.0-32.0); Chloride 111 meq/L (98-107); Glomerular Filtration Rate 88 mL/min (>89); Glucose,Random 114 mg/dL (74-106); Magnesium 2.1 mg/dL (1.5-2.5); Potassium 4.2 meq/L (3.5-5.1); Sodium 143 meq/L (136-145)
[2018-04-28 05:32] LABS: Alanine Aminotransferase 39 U/L (9-52); Phosphorus 3.9 mg/dL (2.5-4.9)
[2018-04-28 05:34] LABS: Alkaline Phosphatase 63 U/L (45-117)
[2018-04-28] MEDS: Senna/Docusate Sodium 8.6/50 MG Tablet PO SCH ×2 (08:06→21:48)
[2018-04-28] MEDS: Pantoprazole Inj 40 MG Vial IV.PUSH SCH (08:07)
--- NOTE | 2018-04-28 09:48 | P.PNCC ---
Subjective Subjective Remarks/Hospital Course: Patient is approximately 22 years old male obese, was found on the floor by a family member, downtime is unknown. EMS was called, patient was given Narcan with no response, he was intubated on the scene, apparently GCS 3. Found bag of PCP next to the patient. Patient has history of psychiatric disorder ? bipolar disorder and I am told he has attempted suicide in the past. There is also mention about suspicion of ethylene glycol ingestion, but his serum osmolality is 307 his osmolar gap is only 13. Bicarb is 26, ethylene glycol seems unlikely. Ethanol was negative urine drug screen only positive for benzo. I evaluated the patient in the ICU at the [facility]. Patient had a CT of the head which was negative. Rest of the workup unremarkable except for bibasilar atelectasis/aspiration pneumonia. Patient's white count is elevated at 17.1, glucose is 232 lactic acid was 2.8. He received multiple fluid boluses. At this time he is not on any sedation but remains unresponsive no response to deep pain 04/28 Patient remains intubated off sedation unresponsive. Afebrile. Objective Vital Signs / I&O: Vital Signs 04/27/18 11:30 04/27/18 11:32 04/27/18 12:19 Temperature 98.4 F Pulse Rate 117 H 117 H Respiratory Rate 24 Blood Pressure 96/51 L Pulse Oximetry 98 92 L 04/27/18 12:20 04/27/18 12:41 04/27/18 12:51 Temperature Pulse Rate 123 H Respiratory Rate 16 Blood Pressure 105/56 L Pulse Oximetry 92 L 92 L 94 L 04/27/18 14:00 04/27/18 14:07 04/27/18 14:10 Temperature Pulse Rate 102 H Respiratory Rate 24 Blood Pressure 86/36 L Pulse Oximetry 100 94 L 04/27/18 14:41 04/27/18 14:53 04/27/18 15:30 Temperature Pulse Rate 106 H 102 H 98 H Respiratory Rate 16 16 Blood Pressure 76/33 L 74/34 L 74/34 L Pulse Oximetry 04/27/18 16:00 04/27/18 16:29 04/27/18 16:35 Temperature Pulse Rate 102 H 103 H 102 H Respiratory Rate 24 Blood Pressure 111/44 L 114/38 L Pulse Oximetry 04/27/18 16:55 04/27/18 17:10 04/27/18 17:45 Temperature Pulse Rate 106 H 106 H Respiratory Rate Blood Pressure 115/46 L 116/41 L Pulse Oximetry 92 L 04/27/18 18:07 04/27/18 19:00 04/27/18 20:00 Temperature Pulse Rate 110 H 109 H Respiratory Rate 24 16 16 Blood Pressure 109/55 L 116/56 L Pulse Oximetry 100 100 100 04/27/18 21:00 04/27/18 21:13 04/27/18 22:00 Temperature 99.1 F Pulse Rate 126 H 109 H Respiratory Rate 16 19 16 Blood Pressure 129/60 116/56 L Pulse Oximetry 98 99 100 04/27/18 23:00 04/28/18 00:00 04/28/18 00:35 Temperature 98.6 F Pulse Rate 105 H 104 H Respiratory Rate 17 17 17 Blood Pressure 114/55 L 109/55 L Pulse Oximetry 98 100 100 04/28/18 01:00 04/28/18 02:00 04/28/18 03:00 Temperature Pulse Rate 105 H 104 H 104 H Respiratory Rate 18 17 17 Blood Pressure 117/54 L 114/56 L 111/53 L Pulse Oximetry 100 100 100 04/28/18 03:50 04/28/18 03:58 04/28/18 04:00 Temperature 98.9 F Pulse Rate 100 H 100 H Respiratory Rate 17 17 17 Blood Pressure 104/53 L Pulse Oximetry 100 96 04/28/18 05:00 04/28/18 06:00 04/28/18 07:00 Temperature Pulse Rate 96 H 93 H 94 H Respiratory Rate 16 16 16 Blood Pressure 105/53 L 106/53 L 109/53 L Pulse Oximetry 100 100 99 04/28/18 07:39 Temperature Pulse Rate 93 H Respiratory Rate 16 Blood Pressure Pulse Oximetry 100 Intake & Output 04/27/18 04/28/18 04/28/18 18:59 06:59 18:59 Intake Total 2071 3185.6 / 3185.6 Output Total 1150 / 1150 Balance 2071.6 / 2034.6 Weight 159 kg 176.5 kg Intake: IV 2071 3185.6 / 3185.6 Levophed Inj 16 MG In NS Inj 2 / 2 5.6 / 5.6 234 ML @ 2 MCG/MIN 1.87 mls/hr IV.CONT TITRATE PRN Rx#: [id number] NS Inj 1,000 ML @ 84 mls/hr IV. 1020 / 1020 980 / 980 CONT .[id number] [facility] Rx#: [id number] Zosyn 3.375 GM Premix 50 ML @ 50 / 50 100 mls/hr IV.SIG ONCE ONE Rx#: [id number] Zosyn 4.5 GM Premix 4.5 gm In 200 / 200 100 ml @ 200 mls/hr IV.SIG Q6H [facility] Rx#:[id number] NS Inj 2,000 ML @ Wide Open 999 1000 / 1000 2000 / 2000 mls/hr IV.SIG .Q2H1M [facility] Rx#: [id number] Oral 0 / 0 Output: Urine Amount (Catheter) 1150 / 1150 Indwelling Urethral Catheter 1150 / 1150 Other: # Bowel Movements 0 Weight On Admission 177 kg Result Diagrams: 04/28/18 04:50 04/28/18 04:50 Other Results: Laboratory Results - last 12 hr 04/27/18 04/27/18 04/27/18 20:35 20:35 22:19 WBC RBC Hgb Hct MCV MCH MCHC RDW Plt Count MPV Neut % (Auto) Lymph % (Auto) Traill % (Auto) Eos % (Auto) Baso % (Auto) Neut # (Auto) Lymph # (Auto) Traill # (Auto) Eos # (Auto) Baso # (Auto) WBC Differential Differential Comment PT INR APTT Puncture Site Right radial Patient Temperature 98.6 O2 Saturation 93 ABG pH 7.35 L ABG pCO2 39 ABG pO2 86 ABG HCO3 21 L ABG O2 Content 15.5 ABG Base Excess -3.9 L ABG Methemoglobin 1.7 Noah Test Present Hemoglobin 11.7 L Carboxyhemoglobin 0.8 O2 Delivery Device Ventilator Vent Setting Volume /ac Inspired O2 80 Critical Value No Sodium 141 Potassium 4.4 Chloride 109 H Carbon Dioxide 23.9 Anion Gap 8 BUN 14 Creatinine 1.10 Estimated GFR 85 L POC Glucose Random Glucose 120 H D Osmolality 307 H Lactic Acid Calcium 7.5 L Prot Corrected Calcium Phosphorus Magnesium Total Bilirubin AST ALT Alkaline Phosphatase Total Creatine Kinase 1366 H CK-MB (CK-2) 10.6 H CK-MB (CK-2) % 0.8 Troponin I 0.17 H Total Protein Albumin 04/27/18 04/28/18 04/28/18 23:32 01:25 01:25 WBC RBC Hgb Hct MCV MCH MCHC RDW Plt Count MPV Neut % (Auto) Lymph % (Auto) Traill % (Auto) Eos % (Auto) Baso % (Auto) Neut # (Auto) Lymph # (Auto) Traill # (Auto) Eos # (Auto) Baso # (Auto) WBC Differential Differential Comment PT INR APTT Puncture Site Patient Temperature O2 Saturation ABG pH ABG pCO2 ABG pO2 ABG HCO3 ABG O2 Content ABG Base Excess ABG Methemoglobin Noah Test Hemoglobin Carboxyhemoglobin O2 Delivery Device Vent Setting Inspired O2 Critical Value Sodium 143 Potassium 4.4 Chloride 110 H Carbon Dioxide 24.8 Anion Gap 8 BUN 13 Creatinine 1.03 Estimated GFR Greater than 89 POC Glucose 116 H Random Glucose 115 H Osmolality 309 H Lactic Acid Calcium 7.4 L* Prot Corrected Calcium 8.1 L Phosphorus Magnesium Total Bilirubin 0.3 AST 41 H ALT 40 Alkaline Phosphatase 62 Total Creatine Kinase CK-MB (CK-2) CK-MB (CK-2) % Troponin I Total Protein 5.9 L D Albumin 2.9 L D 04/28/18 04/28/18 04/28/18 04:50 04:50 04:50 WBC 13.2 H RBC 3.96 L Hgb 11.8 L Hct 34.3 L MCV 86.5 MCH 29.9 MCHC 34.5 RDW 15.3 Plt Count 217 D MPV 7.0 Neut % (Auto) 74.1 H Lymph % (Auto) 20.4 Traill % (Auto) 5.3 Eos % (Auto) 0.1 Baso % (Auto) 0.1 Neut # (Auto) 9.8 H Lymph # (Auto) 2.7 Traill # (Auto) 0.7 Eos # (Auto) 0.0 Baso # (Auto) 0.0 WBC Differential . Differential Comment Auto diff final PT 10.8 INR 1.1 APTT 28.0 Puncture Site Patient Temperature O2 Saturation ABG pH ABG pCO2 ABG pO2 ABG HCO3 ABG O2 Content ABG Base Excess ABG Methemoglobin Noah Test Hemoglobin Carboxyhemoglobin O2 Delivery Device Vent Setting Inspired O2 Critical Value Sodium 143 Potassium 4.2 Chloride 111 H Carbon Dioxide 27.2 Anion Gap 5 BUN 13 Creatinine 1.07 Estimated GFR 88 L POC Glucose Random Glucose 114 H Osmolality Lactic Acid Calcium 7.5 L Prot Corrected Calcium Phosphorus 3.9 D Magnesium 2.1 Total Bilirubin 0.3 AST 42 H ALT 39 Alkaline Phosphatase 63 Total Creatine Kinase CK-MB (CK-2) CK-MB (CK-2) % Troponin I Total Protein 6.0 L Albumin 2.9 L 04/28/18 04/28/18 04:50 05:10 WBC RBC Hgb Hct MCV MCH MCHC RDW Plt Count MPV Neut % (Auto) Lymph % (Auto) Traill % (Auto) Eos % (Auto) Baso % (Auto) Neut # (Auto) Lymph # (Auto) Traill # (Auto) Eos # (Auto) Baso # (Auto) WBC Differential Differential Comment PT INR APTT Puncture Site Patient Temperature O2 Saturation ABG pH ABG pCO2 ABG pO2 ABG HCO3 ABG O2 Content ABG Base Excess ABG Methemoglobin Noah Test Hemoglobin Carboxyhemoglobin O2 Delivery Device Vent Setting Inspired O2 Critical Value Sodium Potassium Chloride Carbon Dioxide Anion Gap BUN Creatinine Estimated GFR POC Glucose 113 H Random Glucose Osmolality Lactic Acid 1.7 Calcium Prot Corrected Calcium Phosphorus Magnesium Total Bilirubin AST ALT Alkaline Phosphatase Total Creatine Kinase CK-MB (CK-2) CK-MB (CK-2) % Troponin I Total Protein Albumin Imaging: Head CT 04/27/18 11:31 CONCLUSION: 1. Negative CT Head non contrast. . Abdomen/Pelvis CT 04/27/18 11:35 CONCLUSION: 1. Extensive atelectasis in both lower lobes. 2. The Stone catheter needs to be deflated and advanced into the bladder. The catheter is at the level of the prosthetic urethra. 3. No findings to indicate a bowel obstruction are seen. No free air free fluid is identified. Chest CT 04/27/18 11:35 CONCLUSION: 1. Consolidation both posterior lungs with air bronchograms. This could represent bilateral pneumonia or aspiration. Cervical Spine CT 04/27/18 11:36 CONCLUSION: 1. Negative trauma study. Lumbar Spine CT 04/27/18 11:59 CONCLUSION: 1. Negative for acute process 2. There is no evidence for vertebral compression. Chest X-Ray 04/27/18 16:04 CONCLUSION: 1. Double placement of left internal jugular central venous line with no visualized pneumothorax on the supine study. 2. The patient remains intubated and there are alveolar opacities greatest in the right lung. Objective Remarks: GENERAL: Patient is 22 yo intubated . SKIN: Warm and dry. HEAD: Normocephalic. EYES: No scleral icterus. No injection or drainage. NECK: Supple, trachea midline. No JVD or lymphadenopathy. CARDIOVASCULAR: Regular rate and rhythm without murmurs, gallops, or rubs. RESPIRATORY: Breath sounds equal bilaterally. No accessory muscle use. GASTROINTESTINAL: Abdomen soft, non-tender, nondistended. MUSCULOSKELETAL: No cyanosis, or edema. Neuro: intubated, unresponsive.. Assessment and Plan - Problem List (1) Acute metabolic encephalopathy Code(s): G93.41 - Metabolic encephalopathy Status: Acute (2) Acute respiratory failure Code(s): J96.00 - Acute respiratory failure, unspecified whether with hypoxia or hypercapnia Status: Acute (3) Aspiration pneumonitis Code(s): J69.0 - Pneumonitis due to inhalation of food and vomit Status: Acute (4) Leukocytosis Code(s): D72.829 - Elevated white blood cell count, unspecified Status: Acute (5) Hyperglycemia Code(s): R73.9 - Hyperglycemia, unspecified Status: Acute (6) Hypotension Code(s): I95.9 - Hypotension, unspecified Status: Acute (7) Suicide attempt by multiple drug overdose Code(s): T50.902A - Poisoning by unspecified drugs, medicaments and biological substances, intentional self-harm, initial encounter Status: Acute (8) PCP intoxication Code(s): F16.929 - Hallucinogen use, unspecified with intoxication, unspecified Status: Acute (9) Psychiatric disorder Code(s): F99 - Mental disorder, not otherwise specified Status: Chronic - Assessment and Plan Plan: NEURO: Acute metabolic encephalopathy Suspected PCP overdose Suspected ethylene glycol overdose Suicide attempt -PCP was found near the patient ,continue supportive care -Off sedation. Monitor neuro status -Patient had a bicarb of 26, osmolar gap is only 13, this makes ethylene glycol toxicity unlikely -Urine drug screen positive for benzos only -Psychiatric consult after neurological recovery -CT of the head negative -Check EEG r/o subclinical seizures -Ammonia level: 21 -Neuro eval RESP: Acute respiratory failure Bibasilar aspiration pneumonitis -Continue with vent support keep sats >92% -Ventilator bundle. Decrease FIO2: 40%, check ABG -DuoNeb every 6 hours scheduled and as needed -Zosyn 4.5 g every 6 hours scheduled -SBT when appropriate CV: Hypotension Lactic acidosis -Off Levophed monitor HR and BP keep MAP>65mmHg -Normal saline IV fluids at 84 ml per hour -Lactic acid 1.7 GI: - IV famotidine -Start tube feeds Jevity 1.5with goal rate 45ml/hr : -Monitor renal function, I/O's, electrolytes replacement as needed -CT abd/pelvis: No findings to indicate a bowel obstruction are seen. No free air free fluid is identified. ID: Continue with Zosyn and monitor for signs of infections ( Fever, WBC)WBC is trending down. Follow up on blood and sputum cxs. HEME: -Monitor CBC, coags ENDO: Hyperglycemia -Electrolyte replacement per protocol -Sliding scale insulin PROPH: -Bilateral lower extremity SCDs. Subcu heparin/famotidine LINES: -Utilize peripheral IVs, [facility]J central line placed in ED 04/27 CC time 35 min
[2018-04-28 13:42] LABS: ABG Base Excess -1.3 mmol/L (-2-2); ABG PCO2 42 mmHg (38-42); ABG PO2 73 mmHG (61-120)
--- NOTE | 2018-04-28 14:36 | P.DIET ---
Nutritional Evaluation Type of nutrition evaluation: initial Nutrition consult regarding: Tube Feeding Objective - Diagnosis suicidal attempt, aspiration pneumonia - Objective Body Mass Index: 47.4 % IBW: 192 (IBW = 202lb) Body Weight Used for Calculations: IBW Energy Needs - Lower Range (kCal/kg): 28 Energy Needs - Upper Range (kCal/kg): 32 Lower Limit kCal/kg (kCals): 2,570 Upper Limit kCal/kg (kCals): 2,938 Lower Limit Protein Factor (Grams per Kg): 1.2 Upper Limit Protein Factor (Grams per Kg): 1.5 Lower Protein Needs (Protein): 110 Upper Protein Needs (Protein): 138 Fluid Factor (ml/kg): 30 Estimated Fluid Needs (ml): 2,754 Dietitian Reviewed in Medical Record: Curent medications, Intake & Output, Labs , Medical history, Tube feeding Diet Order: NPO, TF Speech Therapy Recommendations: No Objective Comments: PMH: affective bipolar disorder labs: POC glucose 113, Ca+ 7.5 meds: milk of mag, fentanyl, glucagon, novolog, lactulose, zofran, protonix, zosyn Assessment Assessment: Pt currently at nutritional risk r/t NPO status and in need of TFing. Pt currently intubated, off sedation but remains unresponsive. Current suggested order for TF is Jevity 1.5 @ 45mL/hr via OG tube. RD recommends Jevity 1.5 @ 75mL/hr to provide 2700 kcal, 115g of protein, and 1368mL of free water to meet pts nutritional needs. Monitor TF tolerance. Labs reviewed, dietitian following. Recommendations: 1. Recommend Jevity 1.5 @ 75mL/hr to meet pts nutritional needs 2. Monitor TF tolerance 3. Dietitian following Dietitian to Monitor: Lab values, Intake & Output, Tube feeding tolerance, Weight change, Medical course
--- NOTE | 2018-04-28 14:49 | ECG ---
Date Performed: 04/27/2018 Time Performed: 11:44:08 PTAGE: 89 years EKG: SINUS TACHYCARDIA PROBABLE INFERIOR MYOCARDIAL INFARCTION ABNORMAL ECG NO PREVIOUS TRACING DOCTOR: Boogie Wiley Interpretating Date/Time 04/28/2018 14:47:41
--- NOTE | 2018-04-28 16:07 | XR ---
EXAM DATE: 04/28/2018 3:50 PM EDT AGE/SEX: 22 years / Male INDICATIONS: Patient found unresponsive, now intubated. CLINICAL DATA: This is the patient's initial encounter. Patient reports that signs and symptoms have been present for 1 day and indicates a pain score of Nonresponsive. MEDICAL/SURGICAL HISTORY: None. Tonsillectomy. COMPARISON: [facility], CHEST 1V SINGLE AP, 04/27/2018. . FINDINGS: A single AP semierect view of the chest was obtained and again demonstrates an endotracheal tube in p lace with the tip approximately 3 cm above the roque. Nasogastric tube has been placed and is seen c oursing through the esophagus. The tube is not well visualized. The left subclavian central venous li ne remains in place. Perihilar and bibasilar opacities are present which are increased from the prior study. The heart size is moderately enlarged. Both costophrenic angles appear blunted. CONCLUSION: 1. Worsening perihilar and bibasilar opacities most characteristic of pulmonary edema. 2. Blunting of the costophrenic angles consistent with effusions. 3. Cardiomegaly. 4. Placement of nasogastric tube which is not well visualized. Electronically signed by: Albert Hebert MD 04/28/2018 4:06 PM EDT
--- NOTE | 2018-04-28 16:48 | P.CONNEU ---
History of Present Illness Service: Neurology Primary Care Provider: Henrry Reyes MD Chief Complaint: Confusion History of Present Illness: 22-year-old admitted for mental status changes. Apparently GCS 3 in the field and the critical care unit intubated. Apparently was found with a bag PCP next to home. Patient only give a history discussed with father at bedside Father states patient has a long-standing history of bipolar, depression followed by outpatient psychiatrist. Apparently medications and not really work to help with the depression and thus the patient will frequently get products off the Internet. His father thinks he may have overdosed on Sonata hypnotic medication and is not certain that the bag actually had PCP in it. Review of Systems unobtainable due to endotracheal tube, unobtainable due to mental status PMFSH - History History Provided By: Family Member - Medical History Medical History: Medical History (Last Updated 04/27/18 @ 12:31 by Monica Davies RN) Affective bipolar disorder - Surgical History Surgical History: Surgical History (Last Updated 04/27/18 @ 12:31 by Monica Davies RN) Hx of tonsillectomy - Tobacco History Second Hand Smoke Exposure: No Tobacco Use In Past 30 Days: No Smoking Status: Never smoker Tobacco Type: E-Cigarettes - Alcohol History How Often Do You Have a Drink Containing Alcohol: Never - Substance Use History Substance History: Active Abuse - Travel History Recent Travel in the [place] Within the Last 8 Weeks: No Recent Travel Out of the Country Within the Last 8 Weeks: No - Immunization History Tetanus Immunization: Unsure Medications and Allergies Active Medications: Active Medications Al Hydroxide/Mg Hydroxide (Milk Of Boo Liq) 30 ml PO Q12H PRN PRN Reason: Mild Constipation Albuterol (Albuterol Neb (Prn)) 2.5 mg NEB Q2HR NEB PRN PRN Reason: SHORTNESS OF BREATH/WHEEZING Albuterol (Duoneb Neb (Susan)) 1 ampul NEB Q4HR NEB SUSAN Last Admin: 04/28/18 16:29 Dose: 1 ampul Artificial Tears (Tears Naturale Opth Drops) 1 drop EACH EYE Q8H SUSAN Last Admin: 04/28/18 15:45 Dose: 1 drop Bisacodyl (Dulcolax Supp) 10 mg RECTAL DAILY PRN PRN Reason: SEVERE CONSITIPATION Chlorhexidine Gluconate (Chlorhexidine 2% Cloth) 3 pack TOPICAL DAILY@0400 [facility] Stop: 05/03/18 03:59 Last Admin: 04/28/18 03:08 Dose: 3 pack Chlorhexidine Gluconate (Chlorhexidine 2% Cloth) 3 pack TOPICAL DAILY@0400 PRN PRN Reason: Extra cloth needed Stop: 05/03/18 03:59 Dextrose (D50w Vial) 50 ml IV.PUSH UNSCH PRN PRN Reason: PER HYPOGLYCEMIA PROTOCOL Glucagon (Glucagon Inj) 1 mg OTHER PRN PRN PRN Reason: for Hypoglycemia Protocol Heparin Sodium (Porcine) (Heparin Inj) 5,000 units SQ Q12H [facility] Last Admin: 04/28/18 05:11 Dose: 5,000 units Sodium Chloride (Ns Inj) 1,000 mls @ 84 mls/hr IV.CONT .[id number] [facility] Last Admin: 04/28/18 15:42 Dose: 84 mls/hr Norepinephrine Bitartrate 16 (mg/ Sodium Chloride) 250 mls @ 1.87 mls/hr IV.CONT TITRATE PRN; Protocol PRN Reason: See Protocol Last Titration: 04/28/18 05:50 Dose: 0 mcg/min, 0 mls/hr Magnesium Sulfate 4 gm/ Sodium (Chloride) 100 mls @ 50 mls/hr IV.SIG UNSCH PRN PRN Reason: For Magnesium 0.9 - 1.1 mg/dL Potassium Chloride (Kcl 40 Meq Premix Inj) 40 meq in 100 mls @ 25 mls/hr IV.SIG Q2H PRN PRN Reason: For Potassium 2.8 - 3.2 mEq/L Potassium Chloride (Kcl 20 Meq Premix Inj) 20 meq in 100 mls @ 50 mls/hr IV.SIG Q2H PRN PRN Reason: For Potassium 3.3 - 3.5 mEq/L Potassium Chloride (Kcl 40 Meq Premix Inj) 40 meq in 100 mls @ 25 mls/hr IV.SIG UNSCH PRN PRN Reason: For Potassium 3.3 - 3.5 mEq/L Potassium Chloride (Kcl 20 Meq Premix Inj) 20 meq in 100 mls @ 50 mls/hr IV.SIG Q2H PRN PRN Reason: For Potassium 2.8 - 3.2 mEq/L Potassium Phosphate 30 mmol/ (Sodium Chloride) 260 mls @ 42 mls/hr IV.SIG UNSCH PRN PRN Reason: SEE LABEL COMMENTS Magnesium Sulfate 2 gm/ Sodium (Chloride) 100 mls @ 50 mls/hr IV.SIG UNSCH PRN PRN Reason: For Magnesium 1.2 - 1.6 mg/dL Sodium Phosphate 30 mmol/ (Sodium Chloride) 260 mls @ 42 mls/hr IV.SIG UNSCH PRN PRN Reason: For Phosphorus < 2.5 mg/dL Propofol (Diprivan 1000 Mg/100 Ml Inj) 1,000 mg in 100 mls @ 4.77 mls/hr IV.CONT TITRATE PRN; Protocol PRN Reason: Per Protocol Fentanyl (Fentanyl 10 Mcg/Ml Premix Drip) 2,500 mcg in 250 mls @ 5 mls/hr IV.SIG TITRATE PRN; Protocol PRN Reason: Per Protocol Piperacillin/Tazobactam/Dextrose (Zosyn 4.5 Gm Premix) 4.5 gm in 100 mls @ 200 mls/hr IV.SIG Q6H SUSAN Last Admin: 04/28/18 15:42 Dose: 100 mls/hr Sodium Chloride (Ns Inj) 1,000 mls @ 0 mls/hr IV.SIG BOLUS SUSAN Stop: 04/28/18 18:46 Vancomycin HCl 1,000 mg/ (Sodium Chloride) 250 mls @ 200 mls/hr IV.SIG [facility] SUSAN Insulin Aspart (Novolog Insulin Correctional Sugar Inj) 0 unit SQ Q6HR SUSAN; Protocol Last Admin: 04/28/18 14:16 Dose: Not Given Lactulose (Lactulose Liq) 30 ml PO DAILY PRN PRN Reason: SEVERE CONSITIPATION Magnesium Oxide (Mag-Ox) 800 mg PO UNSCH PRN PRN Reason: For Magnesium 1.2 - 1.6 mg/dL Ondansetron HCl (Zofran Inj) 4 mg IV.PUSH Q6H PRN PRN Reason: NAUSEA OR VOMITING Pantoprazole Sodium (Protonix Inj) 40 mg IV.PUSH DAILY SUSAN Last Admin: 04/28/18 08:07 Dose: 40 mg Potassium Bicarb/Potassium Chloride (K-Lyte Cl Eff) 50 meq PO UNSCH PRN PRN Reason: For Potassium 3.3 - 3.5 mEq/L Potassium Phosphate (K-Phos Original) 2,000 mg PO Q4H PRN PRN Reason: Phosphorus Less Than 2.5 mg/dL Potassium Phosphate (K-Phos Original) 2,000 mg PO UNSCH PRN PRN Reason: SEE LABEL COMMENTS Senna/Docusate Sodium (Jemima-Colace) 1 tab PO BID [facility] Last Admin: 04/28/18 08:06 Dose: 1 tab Sennosides (Senokot) 17.2 mg PO Q12H PRN PRN Reason: Moderate Constipation Sodium Chloride (Ns Flush) 2 ml IV.FLUSH BID [facility] Last Admin: 04/28/18 08:07 Dose: 2 ml Sodium Chloride (Ns Flush) 2 ml IV.FLUSH PRN PRN PRN Reason: FLUSH AFTER USING IV ACCESS Terbutaline Sulfate (Brethine Inj) 1 mg SQ UNSCH PRN PRN Reason: For Extravasation Allergies Allergy/AdvReac Type Severity Reaction Status Date / Time shellfish derived Allergy Anaphylaxis Verified 04/27/18 13:21 Home Medications Medication Instructions Recorded Confirmed Type Unable to Obtain Home Meds 04/27/18 04/27/18 History Exam Vital signs: Vital Signs 04/27/18 16:55 04/27/18 17:10 04/27/18 17:45 Temperature Pulse Rate 106 H 106 H Respiratory Rate Blood Pressure 115/46 L 116/41 L Pulse Oximetry 92 L 04/27/18 18:07 04/27/18 19:00 04/27/18 20:00 Temperature Pulse Rate 110 H 109 H Respiratory Rate 24 16 16 Blood Pressure 109/55 L 116/56 L Pulse Oximetry 100 100 100 04/27/18 21:00 04/27/18 21:13 04/27/18 22:00 Temperature 99.1 F Pulse Rate 126 H 109 H Respiratory Rate 16 19 16 Blood Pressure 129/60 116/56 L Pulse Oximetry 98 99 100 04/27/18 23:00 04/28/18 00:00 04/28/18 00:35 Temperature 98.6 F Pulse Rate 105 H 104 H Respiratory Rate 17 17 17 Blood Pressure 114/55 L 109/55 L Pulse Oximetry 98 100 100 04/28/18 01:00 04/28/18 02:00 04/28/18 03:00 Temperature Pulse Rate 105 H 104 H 104 H Respiratory Rate 18 17 17 Blood Pressure 117/54 L 114/56 L 111/53 L Pulse Oximetry 100 100 100 04/28/18 03:50 04/28/18 03:58 04/28/18 04:00 Temperature 98.9 F Pulse Rate 100 H 100 H Respiratory Rate 17 17 17 Blood Pressure 104/53 L Pulse Oximetry 100 96 04/28/18 05:00 04/28/18 06:00 04/28/18 07:00 Temperature Pulse Rate 96 H 93 H 94 H Respiratory Rate 16 16 16 Blood Pressure 105/53 L 106/53 L 109/53 L Pulse Oximetry 100 100 99 04/28/18 07:39 04/28/18 08:00 04/28/18 08:30 Temperature 97.6 F Pulse Rate 93 H 95 H 102 H Respiratory Rate 16 26 H 18 Blood Pressure 106/52 L 113/56 L Pulse Oximetry 100 100 99 04/28/18 09:00 04/28/18 09:30 04/28/18 10:00 Temperature Pulse Rate 96 H 92 H 92 H Respiratory Rate 18 34 H 16 Blood Pressure 107/53 L 108/54 L 108/56 L Pulse Oximetry 100 100 100 04/28/18 10:16 04/28/18 11:35 04/28/18 12:57 Temperature Pulse Rate 94 H Respiratory Rate 17 17 18 Blood Pressure Pulse Oximetry 100 99 04/28/18 16:30 Temperature Pulse Rate 105 H Respiratory Rate 18 Blood Pressure Pulse Oximetry Intake & Output 04/27/18 04/28/18 04/28/18 18:59 06:59 18:59 Intake Total 2071 3185.6 / 3185.6 1100 / 1100 Output Total 1150 / 1150 Balance 2071 2035.6 / 2035.6 1100 / 1100 Weight 159 kg 176.5 kg Intake: IV 2071 3185.6 / 3185.6 1100 / 1100 Levophed Inj 16 MG In NS Inj 2 / 2 5.6 / 5.6 234 ML @ 2 MCG/MIN 1.87 mls/hr IV.CONT TITRATE PRN Rx#: [id number] NS Inj 1,000 ML @ 84 mls/hr IV. 1020 / 1020 980 / 980 1000 / 1000 CONT .[id number] SUSAN Rx#: [id number] Zosyn 3.375 GM Premix 50 ML @ 50 / 50 100 mls/hr IV.SIG ONCE ONE Rx#: [id number] Zosyn 4.5 GM Premix 4.5 gm In 200 / 200 100 / 100 100 ml @ 200 mls/hr IV.SIG Q6H SUSAN Rx#:[id number] NS Inj 2,000 ML @ Wide Open 999 1000 / 1000 2000 / 2000 mls/hr IV.SIG .Q2H1M SUSAN Rx#: [id number] Oral 0 / 0 Output: Urine Amount (Catheter) 1150 / 1150 Indwelling Urethral Catheter 1150 / 1150 Other: # Bowel Movements 0 Weight On Admission 177 kg Narrative: GENERAL: in NAD, obese SKIN: Warm and dry. HEAD: Atraumatic. Normocephalic. NECK: Intubated CARDIOVASCULAR: Regular rate and rhythm. RESPIRATORY: Intubated GASTROINTESTINAL: Abdomen soft, non-tender, nondistended. MUSCULOSKELETAL: Extremities without clubbing, cyanosis, or edema. No obvious deformities. NEUROLOGICAL: Intubated, not following nonverbal, pupils sluggishly reactive no gaze deviation reduced blink to threat, no localization to tactile plantar flexor no clonus PSYCHIATRIC: Calm - Constitutional no acute distress - Routine HEENT Exam Head: Present: normocephalic Results - Labs CBC & Chem 7: 04/28/18 04:50 04/28/18 04:50 Labs: Laboratory Results - last 24 hr 04/27/18 04/27/18 04/27/18 12:45 16:00 19:00 WBC RBC Hgb Hct MCV MCH MCHC RDW Plt Count MPV Neut % (Auto) Lymph % (Auto) [place] % (Auto) Eos % (Auto) Baso % (Auto) Neut # (Auto) Lymph # (Auto) [place] # (Auto) Eos # (Auto) Baso # (Auto) WBC Differential Differential Comment PT INR APTT Fibrinogen 373 Puncture Site Patient Temperature O2 Saturation ABG pH ABG pCO2 ABG pO2 ABG HCO3 ABG O2 Content ABG Base Excess ABG Methemoglobin Noah Test Hemoglobin Carboxyhemoglobin O2 Delivery Device Vent Setting Inspired O2 Critical Value Sodium Potassium Chloride Carbon Dioxide Anion Gap BUN Creatinine Estimated GFR POC Glucose Random Glucose Osmolality 307 H Lactic Acid Calcium Prot Corrected Calcium Phosphorus Magnesium Total Bilirubin AST ALT Alkaline Phosphatase Total Creatine Kinase CK-MB (CK-2) CK-MB (CK-2) % Troponin I Total Protein Albumin Nasal Screen MRSA (PCR) Cancelled 04/27/18 04/27/18 04/27/18 20:11 20:35 20:35 WBC RBC Hgb Hct MCV MCH MCHC RDW Plt Count MPV Neut % (Auto) Lymph % (Auto) [place] % (Auto) Eos % (Auto) Baso % (Auto) Neut # (Auto) Lymph # (Auto) [place] # (Auto) Eos # (Auto) Baso # (Auto) WBC Differential Differential Comment PT INR APTT Fibrinogen Puncture Site Patient Temperature O2 Saturation ABG pH ABG pCO2 ABG pO2 ABG HCO3 ABG O2 Content ABG Base Excess ABG Methemoglobin Noah Test Hemoglobin Carboxyhemoglobin O2 Delivery Device Vent Setting Inspired O2 Critical Value Sodium 141 Potassium 4.4 Chloride 109 H Carbon Dioxide 23.9 Anion Gap 8 BUN 14 Creatinine 1.10 Estimated GFR 85 L POC Glucose 131 H Random Glucose 120 H D Osmolality Lactic Acid 2.0 Calcium 7.5 L Prot Corrected Calcium Phosphorus Magnesium Total Bilirubin AST ALT Alkaline Phosphatase Total Creatine Kinase 1366 H CK-MB (CK-2) 10.6 H CK-MB (CK-2) % 0.8 Troponin I 0.17 H Total Protein Albumin Nasal Screen MRSA (PCR) 04/27/18 04/27/18 04/27/18 20:35 22:19 23:32 WBC RBC Hgb Hct MCV MCH MCHC RDW Plt Count MPV Neut % (Auto) Lymph % (Auto) [place] % (Auto) Eos % (Auto) Baso % (Auto) Neut # (Auto) Lymph # (Auto) [place] # (Auto) Eos # (Auto) Baso # (Auto) WBC Differential Differential Comment PT INR APTT Fibrinogen Puncture Site Right radial Patient Temperature 98.6 O2 Saturation 93 ABG pH 7.35 L ABG pCO2 39 ABG pO2 86 ABG HCO3 21 L ABG O2 Content 15.5 ABG Base Excess -3.9 L ABG Methemoglobin 1.7 Noah Test Present Hemoglobin 11.7 L Carboxyhemoglobin 0.8 O2 Delivery Device Ventilator Vent Setting Volume /ac Inspired O2 80 Critical Value No Sodium Potassium Chloride Carbon Dioxide Anion Gap BUN Creatinine Estimated GFR POC Glucose 116 H Random Glucose Osmolality 307 H Lactic Acid Calcium Prot Corrected Calcium Phosphorus Magnesium Total Bilirubin AST ALT Alkaline Phosphatase Total Creatine Kinase CK-MB (CK-2) CK-MB (CK-2) % Troponin I Total Protein Albumin Nasal Screen MRSA (PCR) 04/28/18 04/28/18 04/28/18 01:25 01:25 04:50 WBC 13.2 H RBC 3.96 L Hgb 11.8 L Hct 34.3 L MCV 86.5 MCH 29.9 MCHC 34.5 RDW 15.3 Plt Count 217 D MPV 7.0 Neut % (Auto) 74.1 H Lymph % (Auto) 20.4 [place] % (Auto) 5.3 Eos % (Auto) 0.1 Baso % (Auto) 0.1 Neut # (Auto) 9.8 H Lymph # (Auto) 2.7 [place] # (Auto) 0.7 Eos # (Auto) 0.0 Baso # (Auto) 0.0 WBC Differential . Differential Comment Auto diff final PT INR APTT Fibrinogen Puncture Site Patient Temperature O2 Saturation ABG pH ABG pCO2 ABG pO2 ABG HCO3 ABG O2 Content ABG Base Excess ABG Methemoglobin Noah Test Hemoglobin Carboxyhemoglobin O2 Delivery Device Vent Setting Inspired O2 Critical Value Sodium 143 Potassium 4.4 Chloride 110 H Carbon Dioxide 24.8 Anion Gap 8 BUN 13 Creatinine 1.03 Estimated GFR Greater than 89 POC Glucose Random Glucose 115 H Osmolality 309 H Lactic Acid Calcium 7.4 L* Prot Corrected Calcium 8.1 L Phosphorus Magnesium Total Bilirubin 0.3 AST 41 H ALT 40 Alkaline Phosphatase 62 Total Creatine Kinase CK-MB (CK-2) CK-MB (CK-2) % Troponin I Total Protein 5.9 L D Albumin 2.9 L D Nasal Screen MRSA (PCR) 04/28/18 04/28/18 04/28/18 04:50 04:50 04:50 WBC RBC Hgb Hct MCV MCH MCHC RDW Plt Count MPV Neut % (Auto) Lymph % (Auto) [place] % (Auto) Eos % (Auto) Baso % (Auto) Neut # (Auto) Lymph # (Auto) [place] # (Auto) Eos # (Auto) Baso # (Auto) WBC Differential Differential Comment PT 10.8 INR 1.1 APTT 28.0 Fibrinogen Puncture Site Patient Temperature O2 Saturation ABG pH ABG pCO2 ABG pO2 ABG HCO3 ABG O2 Content ABG Base Excess ABG Methemoglobin Noah Test Hemoglobin Carboxyhemoglobin O2 Delivery Device Vent Setting Inspired O2 Critical Value Sodium 143 Potassium 4.2 Chloride 111 H Carbon Dioxide 27.2 Anion Gap 5 BUN 13 Creatinine 1.07 Estimated GFR 88 L POC Glucose Random Glucose 114 H Osmolality Lactic Acid 1.7 Calcium 7.5 L Prot Corrected Calcium Phosphorus 3.9 D Magnesium 2.1 Total Bilirubin 0.3 AST 42 H ALT 39 Alkaline Phosphatase 63 Total Creatine Kinase CK-MB (CK-2) CK-MB (CK-2) % Troponin I Total Protein 6.0 L Albumin 2.9 L Nasal Screen MRSA (PCR) 04/28/18 04/28/18 04/28/18 05:10 12:12 13:32 WBC RBC Hgb Hct MCV MCH MCHC RDW Plt Count MPV Neut % (Auto) Lymph % (Auto) [place] % (Auto) Eos % (Auto) Baso % (Auto) Neut # (Auto) Lymph # (Auto) [place] # (Auto) Eos # (Auto) Baso # (Auto) WBC Differential Differential Comment PT INR APTT Fibrinogen Puncture Site Left radial Patient Temperature 98.6 O2 Saturation 91 ABG pH 7.37 L ABG pCO2 42 ABG pO2 73 ABG HCO3 23 ABG O2 Content 14.9 ABG Base Excess -1.3 ABG Methemoglobin 1.8 Noah Test Present Hemoglobin 11.6 L Carboxyhemoglobin 1.0 O2 Delivery Device Ventilator Vent Setting Inspired O2 40 Critical Value No Sodium Potassium Chloride Carbon Dioxide Anion Gap BUN Creatinine Estimated GFR POC Glucose 113 H 100 Random Glucose Osmolality Lactic Acid Calcium Prot Corrected Calcium Phosphorus Magnesium Total Bilirubin AST ALT Alkaline Phosphatase Total Creatine Kinase CK-MB (CK-2) CK-MB (CK-2) % Troponin I Total Protein Albumin Nasal Screen MRSA (PCR) - Imaging Impressions Chest X-Ray 04/28/18 15:23 CONCLUSION: 1. Worsening perihilar and bibasilar opacities most characteristic of pulmonary edema. 2. Blunting of the costophrenic angles consistent with effusions. 3. Cardiomegaly. 4. Placement of nasogastric tube which is not well visualized. Review/Management - Diagnosis (1) Toxic encephalopathy Code(s): G92 - Toxic encephalopathy Status: Acute Current Visit: Yes (2) Suicide attempt by multiple drug overdose Code(s): T50.902A - Poisoning by unspecified drugs, medicaments and biological substances, intentional self-harm, initial encounter Status: Acute Current Visit: Yes (3) Acute metabolic encephalopathy Code(s): G93.41 - Metabolic encephalopathy Status: Acute Current Visit: Yes (4) Acute respiratory failure Code(s): J96.00 - Acute respiratory failure, unspecified whether with hypoxia or hypercapnia Status: Acute Current Visit: Yes (5) Aspiration pneumonitis Code(s): J69.0 - Pneumonitis due to inhalation of food and vomit Status: Acute Current Visit: Yes (6) PCP intoxication Code(s): F16.929 - Hallucinogen use, unspecified with intoxication, unspecified Status: Acute Current Visit: Yes - Review/Management Plan: Drug-induced encephalopathy. Possible PCP although exact substance in the bag is not known; father thinks he may have overdosed on Sonata which case he should slowly wake up CT brain negative Recommendation EEG MRI brain Follow exam Discussed with family at bedside
--- NOTE | 2018-04-28 18:10 | MG ---
cc: Gaby Jade MD EEG NUMBER: [id number] REFERRING PHYSICIAN: Santiago Kumar MD CLINICAL HISTORY: In room 523, intubated, unresponsive. There is no sedation. Photic only completed. CT was negative. Deep tactile stimulation was given in all 4 extremities without a response. Found unresponsive on the floor. EMS gave Narcan Flagyl. Bag of PCP found next to the patient. Suspicion of ethanol glycol ingestion. DESCRIPTION OF RECORD: Intubated, disorganized background, quite a bit of artifact, but overall slowing seen predominantly between 3-4 Hz. EKG looks sinus. Somewhat poor study due to growth artifact throughout. Photic stimulation, no significant driving response. No change with tactile stimulation. Overall findings are still despite the artifact looking like a moderate slowing of background. Consider repeat EEG, if indicated, but no epileptiform features could be distinguished with this quality study. Clinical correlation. MD BRANDEN Harmon/jennifer/ta , 04:17 PM , 04:24 PM
--- NOTE | 2018-04-28 18:59 | ECHRPT ---
Indication: heart failure CONCLUSIONS The left ventricular systolic function is normal with an estimated ejection fraction in the range of 60-65%. Wall thickness is measured at the upper limits of normal. There is mild tricuspid valve regurgitation. BP: / HR: Rhythm: MEASUREMENTS (Male / Female) Normal Values Technical Quality: 2D ECHO LV Diastolic Diameter PLAX 4.7 cm 4.2 - 5.9 / 3.9 - 5.3 cm LV Systolic Diameter PLAX 3.2 cm IVS Diastolic Thickness 1.2 cm 0.6 - 1.0 / 0.6 - 0.9 cm LVPW Diastolic Thickness 1.3 cm 0.6 - 1.0 / 0.6 - 0.9 cm LV Relative Wall Thickness 0.5 RV Internal Dim ED PLAX 2.5 cm LVOT Diameter 2.0 cm Aortic Root Diameter 2.5 cm LA Systolic Diameter LX 3.5 cm 3.0 - 4.0 / 2.7 - 3.8 cm M-MODE Aortic Root Diameter MM 3.3 cm LA Systolic Diameter MM 4.8 cm LA Ao Ratio MM 1.5 AV Cusp Separation MM 1.7 cm DOPPLER AV Peak Velocity 136.0 cm/s AV Peak Gradient 7.4 mmHg LVOT Peak Velocity 104.0 cm/s LVOT Peak Gradient 4.3 mmHg AV Area Cont Eq pk 2.4 cm Mitral E Point Velocity 126.0 cm/s Mitral A Point Velocity 79.0 cm/s Mitral E to A Ratio 1.6 LV E' Lateral Velocity 10.5 cm/s Mitral E to LV E' Lateral Ratio 12.0 LV E' Septal Velocity 10.8 cm/s Mitral E to LV E' Septal Ratio 11.7 TR Peak Velocity 255.0 cm/s TR Peak Gradient 26.0 mmHg Right Atrial Pressure 10.0 mmHg Pulmonary Artery Systolic Pressu 36.0 mmHg Right Ventricular Systolic Press 36.0 mmHg PV Peak Velocity 127.0 cm/s PV Peak Gradient 6.5 mmHg FINDINGS LEFT VENTRICLE Normal left ventricular size. Wall thickness is measured at the upper limits of normal. The left ventricular systolic function is normal with an estimated ejection fraction in the range of 60-65%. No regional wall motion abnormalities are present. RIGHT VENTRICLE Grossly normal LEFT ATRIUM The left atrial size is mildly dilated. RIGHT ATRIUM The right atrial size is normal. ATRIAL SEPTUM Normal atrial septal thickness without atrial level shunting by limited color doppler interrogation. AORTA The aortic root and proximal ascending aorta are normal in size on limited imaging. MITRAL VALVE Structurally normal mitral valve. No mitral valve stenosis or regurgitation. AORTIC VALVE Trileaflet aortic valve. No aortic valve stenosis or regurgitation. TRICUSPID VALVE The estimated pulmonary arterial pressure is 36 mmHg. There is mild tricuspid valve regurgitation. Structurally normal tricuspid valve. PULMONARY VALVE No pulmonary valve regurgitation or stenosis. VESSELS The inferior vena cava is normal in size. PERICARDIUM No pericardial effusion. Ferny Delarosa DO (Electronically Signed) Final Date:28 April 2018 18:58
[2018-04-28 19:21] LABS: Anion Gap 8 meq/L (5-15); Blood Urea Nitrogen 13 mg/dL (7-18); Calcium 7.6 mg/dL (8.5-10.1); Carbon Dioxide 25.1 meq/L (21.0-32.0); Chloride 111 meq/L (98-107); Glomerular Filtration Rate Greater Than 89 mL/min (>89); Glucose,Random 106 mg/dL (74-106); Potassium 4.2 meq/L (3.5-5.1); Sodium 144 meq/L (136-145)
[2018-04-28 19:23] LABS: Carbamazepine (Tegretol) 0.5 mcg/mL (4.0-12.0)
[2018-04-29] MEDS: Artificial Tears Opth Drops 15 ML Bottle EACH EYE SCH ×4 (00:45→23:41)
[2018-04-29] MEDS: Insulin NovoLOG Aspart Correctional Sugar Inj SQ SCH ×5 (00:45→23:40)
[2018-04-29] MEDS: Piperacil/Tazo 4.5 GM Premix 4.5 GM/100 ML BAG IV.SIG SCH ×4 (04:12→20:06)
[2018-04-29] MEDS: Chlorhexidine Gluconate 2% 1 Pack (2 Cloths) TOPICAL SCH (04:14)
[2018-04-29] MEDS: Sod Chloride 0.9% Inj 1,000 ML IV.CONT SCH ×2 (04:14→17:50)
--- NOTE | 2018-04-29 04:56 | XR ---
EXAM DATE: 04/29/2018 4:52 AM EDT AGE/SEX: 22 years / Male INDICATIONS: Short of breath. CLINICAL DATA: This is the patient's subsequent encounter. Patient reports that signs and symptoms h ave been present for 3 days and indicates a pain score of 0/10. MEDICAL/SURGICAL HISTORY: None. Tonsillectomy. COMPARISON: [facility] [place], CHEST 1V SINGLE AP, 04/28/2018. . FINDINGS: There are fairly diffuse parenchymal opacities on the right and basilar opacities on the left. Right side is worse and left side improved in the interim. Small pleural effusions are possible, especially on the right. I don't see a pneumothorax. Mild cardiomegaly is stable. Endotracheal tube tip is at the level of the thoracic inlet. Nasogastric tube courses into the stomac h. There is a left internal jugular central venous catheter again seen with tip in the superior vena cava. CONCLUSION: Right greater than left parenchymal opacities, intervally worse on the right and improved on the left . Electronically signed by: Alexis Wyatt MD 04/29/2018 4:54 AM EDT
[2018-04-29 05:16] LABS: Baso % (Auto) 0.3 % (0.0-2.0); Eos % (Auto) 0.1 % (0.0-4.0); Hematocrit 33.2 % (39.0-51.0); Hemoglobin 11.3 gm/dL (13.0-17.0); Lymph # (Auto) 1.8 th/mm3 (1.0-4.8); Mean Corpuscular Hemoglobin 30.3 pg (27.0-34.0); Mean Corpuscular Volume 89.1 fL (80.0-100.0); Mono # (Auto) 0.9 th/mm3 (0.0-0.9); Mono % (Auto) 8.7 % (0.0-8.0); Neut # (Auto) 7.2 th/mm3 (1.8-7.7); Neut % (Auto) 72.9 % (16.0-70.0); Platelet Count 213 th/mm3 (150-450); Red Blood Count 3.72 mil/mm3 (4.50-5.90); Red Cell Distribution Width 15.4 % (11.6-17.2); White Blood Count 9.9 th/mm3 (4.0-11.0)
[2018-04-29 05:40] LABS: Alanine Aminotransferase 37 U/L (9-52); Albumin 2.6 g/dL (3.4-5.0); Alkaline Phosphatase 59 U/L (45-117); Anion Gap 6 meq/L (5-15); Aspartate Aminotransferase 60 U/L (15-39); Blood Urea Nitrogen 14 mg/dL (7-18); Calcium 7.8 mg/dL (8.5-10.1); Carbon Dioxide 26.6 meq/L (21.0-32.0); Chloride 112 meq/L (98-107); Glomerular Filtration Rate Greater Than 89 mL/min (>89); Glucose,Random 109 mg/dL (74-106); Magnesium 2.3 mg/dL (1.5-2.5); Phosphorus 2.3 mg/dL (2.5-4.9); Sodium 145 meq/L (136-145); Total Protein 5.9 g/dL (6.4-8.2)
[2018-04-29] MEDS: Heparin - SQ 10,000 UNITS/ML Vial SQ SCH ×2 (06:04→17:49)
--- NOTE | 2018-04-29 06:35 | P.PNNEU ---
Subjective Subjective Comments: no acute events Active Medications: Active Medications Al Hydroxide/Mg Hydroxide (Milk Of Boo Red) 30 ml PO Q12H PRN PRN Reason: Mild Constipation Albuterol (Albuterol Neb (Prn)) 2.5 mg NEB Q2HR NEB PRN PRN Reason: SHORTNESS OF BREATH/WHEEZING Albuterol (Duoneb Neb (Susan)) 1 ampul NEB Q4HR NEB [facility] Last Admin: 04/29/18 04:37 Dose: 1 ampul Artificial Tears (Tears Naturale Opth Drops) 1 drop EACH EYE Q8H [facility] Last Admin: 04/29/18 00:45 Dose: 1 drop Bisacodyl (Dulcolax Supp) 10 mg RECTAL DAILY PRN PRN Reason: SEVERE CONSITIPATION Chlorhexidine Gluconate (Chlorhexidine 2% Cloth) 3 pack TOPICAL DAILY@0400 [facility] Stop: 05/03/18 03:59 Last Admin: 04/29/18 04:14 Dose: 3 pack Chlorhexidine Gluconate (Chlorhexidine 2% Cloth) 3 pack TOPICAL DAILY@0400 PRN PRN Reason: Extra cloth needed Stop: 05/03/18 03:59 Dextrose (D50w Vial) 50 ml IV.PUSH UNSCH PRN PRN Reason: PER HYPOGLYCEMIA PROTOCOL Glucagon (Glucagon Inj) 1 mg OTHER PRN PRN PRN Reason: for Hypoglycemia Protocol Heparin Sodium (Porcine) (Heparin Inj) 5,000 units SQ Q12H [facility] Last Admin: 04/29/18 06:04 Dose: 5,000 units Sodium Chloride (Ns Inj) 1,000 mls @ 84 mls/hr IV.CONT .[id number] [facility] Last Admin: 04/29/18 04:14 Dose: 84 mls/hr Norepinephrine Bitartrate 16 (mg/ Sodium Chloride) 250 mls @ 1.87 mls/hr IV.CONT TITRATE PRN; Protocol PRN Reason: See Protocol Last Titration: 04/28/18 05:50 Dose: 0 mcg/min, 0 mls/hr Magnesium Sulfate 4 gm/ Sodium (Chloride) 100 mls @ 50 mls/hr IV.SIG UNSCH PRN PRN Reason: For Magnesium 0.9 - 1.1 mg/dL Potassium Chloride (Kcl 40 Meq Premix Inj) 40 meq in 100 mls @ 25 mls/hr IV.SIG Q2H PRN PRN Reason: For Potassium 2.8 - 3.2 mEq/L Potassium Chloride (Kcl 20 Meq Premix Inj) 20 meq in 100 mls @ 50 mls/hr IV.SIG Q2H PRN PRN Reason: For Potassium 3.3 - 3.5 mEq/L Potassium Chloride (Kcl 40 Meq Premix Inj) 40 meq in 100 mls @ 25 mls/hr IV.SIG UNSCH PRN PRN Reason: For Potassium 3.3 - 3.5 mEq/L Potassium Chloride (Kcl 20 Meq Premix Inj) 20 meq in 100 mls @ 50 mls/hr IV.SIG Q2H PRN PRN Reason: For Potassium 2.8 - 3.2 mEq/L Potassium Phosphate 30 mmol/ (Sodium Chloride) 260 mls @ 42 mls/hr IV.SIG UNSCH PRN PRN Reason: SEE LABEL COMMENTS Magnesium Sulfate 2 gm/ Sodium (Chloride) 100 mls @ 50 mls/hr IV.SIG UNSCH PRN PRN Reason: For Magnesium 1.2 - 1.6 mg/dL Sodium Phosphate 30 mmol/ (Sodium Chloride) 260 mls @ 42 mls/hr IV.SIG UNSCH PRN PRN Reason: For Phosphorus < 2.5 mg/dL Propofol (Diprivan 1000 Mg/100 Ml Inj) 1,000 mg in 100 mls @ 4.77 mls/hr IV.CONT TITRATE PRN; Protocol PRN Reason: Per Protocol Fentanyl (Fentanyl 10 Mcg/Ml Premix Drip) 2,500 mcg in 250 mls @ 5 mls/hr IV.SIG TITRATE PRN; Protocol PRN Reason: Per Protocol Piperacillin/Tazobactam/Dextrose (Zosyn 4.5 Gm Premix) 4.5 gm in 100 mls @ 200 mls/hr IV.SIG Q6H SUSAN Last Admin: 04/29/18 04:12 Dose: 100 mls/hr Vancomycin HCl 1,000 mg/ (Sodium Chloride) 250 mls @ 200 mls/hr IV.SIG [employer] [facility] Insulin Aspart (Novolog Insulin Correctional Sugar Inj) 0 unit SQ Q6HR SUSAN; Protocol Last Admin: 04/29/18 00:45 Dose: Not Given Lactulose (Lactulose Liq) 30 ml PO DAILY PRN PRN Reason: SEVERE CONSITIPATION Magnesium Oxide (Mag-Ox) 800 mg PO UNSCH PRN PRN Reason: For Magnesium 1.2 - 1.6 mg/dL Ondansetron HCl (Zofran Inj) 4 mg IV.PUSH Q6H PRN PRN Reason: NAUSEA OR VOMITING Pantoprazole Sodium (Protonix Inj) 40 mg IV.PUSH DAILY [facility] Last Admin: 04/28/18 08:07 Dose: 40 mg Potassium Bicarb/Potassium Chloride (K-Lyte Cl Eff) 50 meq PO UNSCH PRN PRN Reason: For Potassium 3.3 - 3.5 mEq/L Potassium Phosphate (K-Phos Original) 2,000 mg PO Q4H PRN PRN Reason: Phosphorus Less Than 2.5 mg/dL Potassium Phosphate (K-Phos Original) 2,000 mg PO UNSCH PRN PRN Reason: SEE LABEL COMMENTS Senna/Docusate Sodium (Jemima-Colace) 1 tab PO BID [facility] Last Admin: 04/28/18 21:48 Dose: 1 tab Sennosides (Senokot) 17.2 mg PO Q12H PRN PRN Reason: Moderate Constipation Sodium Chloride (Ns Flush) 2 ml IV.FLUSH BID [facility] Last Admin: 04/28/18 21:49 Dose: 2 ml Sodium Chloride (Ns Flush) 2 ml IV.FLUSH PRN PRN PRN Reason: FLUSH AFTER USING IV ACCESS Terbutaline Sulfate (Brethine Inj) 1 mg SQ UNSCH PRN PRN Reason: For Extravasation Allergies/Adverse Reactions: Allergies Allergy/AdvReac Type Severity Reaction Status Date / Time shellfish derived Allergy Anaphylaxis Verified 04/27/18 13:21 Review of Systems unobtainable due to endotracheal tube, unobtainable due to mental condition Physical Exam Vital signs: Vital Signs 04/28/18 07:00 04/28/18 07:39 04/28/18 08:00 Temperature 97.6 F Pulse Rate 94 H 93 H 95 H Respiratory Rate 16 16 26 H Blood Pressure 109/53 L 106/52 L Pulse Oximetry 99 100 100 04/28/18 08:30 04/28/18 09:00 04/28/18 09:30 Temperature Pulse Rate 102 H 96 H 92 H Respiratory Rate 18 18 34 H Blood Pressure 113/56 L 107/53 L 108/54 L Pulse Oximetry 99 100 100 04/28/18 10:00 04/28/18 10:16 10/30/18 11:00 Temperature Pulse Rate 92 H 92 H Respiratory Rate 16 17 30 H Blood Pressure 108/56 L 109/55 L Pulse Oximetry 100 100 100 04/28/18 11:30 04/28/18 11:35 04/28/18 12:00 Temperature 98.4 F Pulse Rate 94 H 94 H 96 H Respiratory Rate 34 H 17 34 H Blood Pressure 110/56 L 111/56 L Pulse Oximetry 100 100 04/28/18 12:30 04/28/18 12:57 04/28/18 13:00 Temperature Pulse Rate 97 H 103 H Respiratory Rate 16 18 19 Blood Pressure 108/55 L 104/51 L Pulse Oximetry 99 99 98 04/28/18 13:30 04/28/18 14:00 04/28/18 14:30 Temperature Pulse Rate 104 H 98 H 96 H Respiratory Rate 25 H 18 18 Blood Pressure 109/55 L 110/57 L 112/57 L Pulse Oximetry 100 100 100 04/28/18 15:00 04/28/18 15:30 04/28/18 16:00 Temperature 97.6 F Pulse Rate 100 H 104 H 101 H Respiratory Rate 17 18 19 Blood Pressure 111/56 L 115/55 L Pulse Oximetry 100 97 97 04/28/18 16:01 04/28/18 16:30 04/28/18 17:00 Temperature Pulse Rate 101 H 105 H 108 H Respiratory Rate 18 18 19 Blood Pressure 112/56 L 115/58 L 117/55 L Pulse Oximetry 98 97 100 04/28/18 17:30 04/28/18 18:00 04/28/18 18:30 Temperature 99.3 F Pulse Rate 109 H 109 H 111 H Respiratory Rate 19 18 20 Blood Pressure 116/55 L 118/57 L 117/55 L Pulse Oximetry 100 100 100 04/28/18 19:00 04/28/18 20:00 04/28/18 20:19 Temperature 98.2 F Pulse Rate 115 H 116 H Respiratory Rate 22 21 21 Blood Pressure 115/54 L 122/58 L Pulse Oximetry 100 100 100 04/28/18 20:22 04/28/18 21:00 04/28/18 22:00 Temperature Pulse Rate 114 H 121 H 120 H Respiratory Rate 22 21 21 Blood Pressure 126/58 L 122/57 L Pulse Oximetry 100 100 04/29/18 00:00 04/29/18 00:31 04/29/18 00:33 Temperature 98.5 F Pulse Rate 128 H 123 H Respiratory Rate 23 20 20 Blood Pressure 122/58 L Pulse Oximetry 100 100 04/29/18 01:00 04/29/18 02:00 04/29/18 03:00 Temperature Pulse Rate 122 H 118 H 120 H Respiratory Rate 23 22 21 Blood Pressure 120/56 L 122/57 L 112/56 L Pulse Oximetry 100 100 100 04/29/18 04:00 04/29/18 04:37 04/29/18 05:00 Temperature 99.5 F Pulse Rate 118 H 113 H 118 H Respiratory Rate 22 21 21 Blood Pressure 121/58 L 123/61 Pulse Oximetry 99 100 100 Intake & Output 04/28/18 04/28/18 04/29/18 06:59 18:59 06:59 Intake Total 3185.6 / 3185.6 1200 / 1200 1100 / 1100 Output Total 1150 / 1150 600 / 600 Balance 2035.6 / 2035.6 600 / 600 1100 / 1100 Weight 176.5 kg Intake: IV 3185.6 / 3185.6 1200 / 1200 1100 / 1100 Levophed Inj 16 MG In NS Inj 5.6 / 5.6 234 ML @ 2 MCG/MIN 1.87 mls/hr IV.CONT TITRATE PRN Rx#: [id number] NS Inj 1,000 ML @ 84 mls/hr IV. 980 / 980 1000 / 1000 1000 / 1000 CONT .[id number] SUSAN Rx#: [id number] Zosyn 4.5 GM Premix 4.5 gm In 200 / 200 200 / 200 100 / 100 100 ml @ 200 mls/hr IV.SIG Q6H SUSAN Rx#:[id number] NS Inj 2,000 ML @ Wide Open 999 2000 / 2000 mls/hr IV.SIG .Q2H1M SUSAN Rx#: [id number] Oral 0 / 0 Output: Urine Amount (Catheter) 1150 / 1150 600 / 600 Indwelling Urethral Catheter 1150 / 1150 600 / 600 Other: # Bowel Movements 0 0 Weight On Admission 177 kg Narrative: GENERAL: in NAD, obese SKIN: Warm and dry. HEAD: Atraumatic. Normocephalic. NECK: Intubated CARDIOVASCULAR: Regular rate and rhythm. RESPIRATORY: Intubated GASTROINTESTINAL: Abdomen soft, non-tender, nondistended. MUSCULOSKELETAL: Extremities without clubbing, cyanosis, or edema. No obvious deformities. NEUROLOGICAL: Intubated, grimaces, partially opens eyes, +withdrawal of le PSYCHIATRIC: Calm - Constitutional no acute distress - Routine HEENT Exam Head: Present: normocephalic - Urinary Catheter Management Indwelling Urethral Catheter Cath placed during this visit: yes, but has since been removed by the nurse Reason for continuing: Decision to DC catheter Insertion date: 04/27/18 Insertion time: 12:15 Removal date: 04/28/18 Removal time: 18:45 Objective Laboratory Results - last 24 hr 04/28/18 04/28/18 04/28/18 12:12 13:32 18:20 WBC RBC Hgb Hct MCV MCH MCHC RDW Plt Count MPV Neut % (Auto) Lymph % (Auto) [place] % (Auto) Eos % (Auto) Baso % (Auto) Neut # (Auto) Lymph # (Auto) [place] # (Auto) Eos # (Auto) Baso # (Auto) WBC Differential Differential Comment Puncture Site Left radial Patient Temperature 98.6 O2 Saturation 91 ABG pH 7.37 L ABG pCO2 42 ABG pO2 73 ABG HCO3 23 ABG O2 Content 14.9 ABG Base Excess -1.3 ABG Methemoglobin 1.8 Noah Test Present Hemoglobin 11.6 L Carboxyhemoglobin 1.0 O2 Delivery Device Ventilator Vent Setting Inspired O2 40 Critical Value No Sodium 144 Potassium 4.2 Chloride 111 H Carbon Dioxide 25.1 Anion Gap 8 BUN 13 Creatinine 0.91 Estimated GFR Greater than 89 POC Glucose 100 Random Glucose 106 Osmolality 311 H Calcium 7.6 L Phosphorus Magnesium Total Bilirubin AST ALT Alkaline Phosphatase Total Protein Albumin Valproic Acid Less than 3 L Carbamazepine 0.5 L [place] 04/28/18 04/28/18 04/29/18 18:20 23:44 04:45 WBC 9.9 RBC 3.72 L Hgb 11.3 L Hct 33.2 L MCV 89.1 MCH 30.3 MCHC 34.0 RDW 15.4 Plt Count 213 MPV 7.0 Neut % (Auto) 72.9 H Lymph % (Auto) 18.0 [place] % (Auto) 8.7 H Eos % (Auto) 0.1 Baso % (Auto) 0.3 Neut # (Auto) 7.2 Lymph # (Auto) 1.8 [place] # (Auto) 0.9 Eos # (Auto) 0.0 Baso # (Auto) 0.0 WBC Differential . Differential Comment Auto diff final Puncture Site Patient Temperature O2 Saturation ABG pH ABG pCO2 ABG pO2 ABG HCO3 ABG O2 Content ABG Base Excess ABG Methemoglobin Noah Test Hemoglobin Carboxyhemoglobin O2 Delivery Device Vent Setting Inspired O2 Critical Value Sodium Potassium Chloride Carbon Dioxide Anion Gap BUN Creatinine Estimated GFR POC Glucose 99 Random Glucose Osmolality Calcium Phosphorus Magnesium Total Bilirubin AST ALT Alkaline Phosphatase Total Protein Albumin Valproic Acid Carbamazepine [place] 0.1 L 04/29/18 04:45 WBC RBC Hgb Hct MCV MCH MCHC RDW Plt Count MPV Neut % (Auto) Lymph % (Auto) [place] % (Auto) Eos % (Auto) Baso % (Auto) Neut # (Auto) Lymph # (Auto) [place] # (Auto) Eos # (Auto) Baso # (Auto) WBC Differential Differential Comment Puncture Site Patient Temperature O2 Saturation ABG pH ABG pCO2 ABG pO2 ABG HCO3 ABG O2 Content ABG Base Excess ABG Methemoglobin Noah Test Hemoglobin Carboxyhemoglobin O2 Delivery Device Vent Setting Inspired O2 Critical Value Sodium 145 Potassium 4.0 Chloride 112 H Carbon Dioxide 26.6 Anion Gap 6 BUN 14 Creatinine 0.82 Estimated GFR Greater than 89 POC Glucose Random Glucose 109 H Osmolality Calcium 7.8 L Phosphorus 2.3 L D Magnesium 2.3 Total Bilirubin 0.2 AST 60 H ALT 37 Alkaline Phosphatase 59 Total Protein 5.9 L Albumin 2.6 L Valproic Acid Carbamazepine [place] Microbiology 04/27/18 14:30 Gram Stain - Final Sputum - Oral Tracheal Aspirate Sputum Culture - Preliminary Beta Strep not group A 04/27/18 11:55 Aerobic Blood Culture - Preliminary Blood - Line No growth in 1 day Anaerobic Blood Culture - Preliminary No growth in 1 day 04/27/18 12:00 Aerobic Blood Culture - Preliminary Blood - Line No growth in 1 day Anaerobic Blood Culture - Preliminary No growth in 1 day Review/Management - Diagnosis (1) Toxic encephalopathy Code(s): G92 - Toxic encephalopathy Status: Acute Current Visit: Yes (2) Suicide attempt by multiple drug overdose Code(s): T50.902A - Poisoning by unspecified drugs, medicaments and biological substances, intentional self-harm, initial encounter Status: Acute Current Visit: Yes (3) Acute metabolic encephalopathy Code(s): G93.41 - Metabolic encephalopathy Status: Acute Current Visit: Yes (4) Acute respiratory failure Code(s): J96.00 - Acute respiratory failure, unspecified whether with hypoxia or hypercapnia Status: Acute Current Visit: Yes (5) Aspiration pneumonitis Code(s): J69.0 - Pneumonitis due to inhalation of food and vomit Status: Acute Current Visit: Yes (6) PCP intoxication Code(s): F16.929 - Hallucinogen use, unspecified with intoxication, unspecified Status: Acute Current Visit: Yes - Review/Management Plan: Drug-induced encephalopathy. Possible PCP although exact substance in the bag is not known; father thinks he may have overdosed on Sonata which case he should slowly wake up CT brain negative Recommendation more arousable this am EEG-slowing MRI brain-pending should slowly start to wake up
[2018-04-29] MEDS: Pantoprazole Inj 40 MG Vial IV.PUSH SCH (08:36)
[2018-04-29] MEDS: Senna/Docusate Sodium 8.6/50 MG Tablet PO SCH ×2 (08:38→20:06)
[2018-04-29] MEDS ORDERED: RASS Change Order OTHER ONE (10:00)
[2018-04-29] MEDS: Dexmedetomidine Inj 200 MCG in Sodium Chlor 0.9% Inj 48 ML IV.CONT PRN ×2 (10:30→16:09)
--- NOTE | 2018-04-29 10:31 | MR ---
EXAM DATE: 04/29/2018 10:22 AM EDT AGE/SEX: 22 years / Male INDICATIONS: . Overdose. Non-responsive. CLINICAL DATA: This is the patient's initial encounter. Patient reports that signs and symptoms have been present for 2 days and indicates a pain score of Nonresponsive. MEDICAL/SURGICAL HISTORY: None. Tonsillectomy. COMPARISON: No prior exams available for comparison. TECHNIQUE: Multiplanar, multisequence examination of the brain was performed without contrast. FINDINGS: Cerebrum: The ventricles are normal for age. No evidence of midline shift, mass lesion, hemorrhage or acute infarction. No extraaxial fluid collections are seen. The pituitary gland and suprasellar cistern are normal in configuration. White Matter: No significant signal abnormalities are seen in the white matter. Posterior Fossa: The cerebellum and brainstem are intact. The 4th ventricle is midline. The cerebel lopontine angle is unremarkable. The cerebellar tonsils are normal in position. Diffusion Imaging: No focal areas of restricted diffusion are seen. No evidence of acute infarction . Extracranial: The visualized portions of the orbits and paranasal sinuses are unremarkable. CONCLUSION: 1. Negative MRI of the brain. 2. Inflammatory process cannot be entirely excluded. 3. There are no infarcts identified. Electronically signed by: Zay Gaspar MD 04/29/2018 10:30 AM EDT
[2018-04-29 11:10] LABS: ABG Base Excess -0.3 mmol/L (-2-2); ABG PCO2 39 mmHg (38-42); ABG PO2 103 mmHG (61-120)
--- NOTE | 2018-04-29 13:01 | P.PNCC ---
Subjective Subjective Remarks/Hospital Course: Patient is approximately 22 years old male obese, was found on the floor by a family member, downtime is unknown. EMS was called, patient was given Narcan with no response, he was intubated on the scene, apparently GCS 3. Found bag of PCP next to the patient. Patient has history of psychiatric disorder ? bipolar disorder and I am told he has attempted suicide in the past. There is also mention about suspicion of ethylene glycol ingestion, but his serum osmolality is 307 his osmolar gap is only 13. Bicarb is 26, ethylene glycol seems unlikely. Ethanol was negative urine drug screen only positive for benzo. I evaluated the patient in the ICU at the [facility]. Patient had a CT of the head which was negative. Rest of the workup unremarkable except for bibasilar atelectasis/aspiration pneumonia. Patient's white count is elevated at 17.1, glucose is 232 lactic acid was 2.8. He received multiple fluid boluses. At this time he is not on any sedation but remains unresponsive no response to deep pain 04/28 Patient remains intubated off sedation unresponsive. Afebrile. SUBJECTIVE: 04/29: MRI of the brain revealed no acute intracranial findings. EEG to be performed tomorrow. More arousable and moves all 4 extremities but not following commands. Placed on dexamethasone E drip. 2 feeds will be restarted Objective Vital Signs / I&O: Vital Signs 04/28/18 13:30 04/28/18 14:00 04/28/18 14:30 Temperature Pulse Rate 104 H 98 H 96 H Respiratory Rate 25 H 18 18 Blood Pressure 109/55 L 110/57 L 112/57 L Pulse Oximetry 100 100 100 04/28/18 15:00 04/28/18 15:30 04/28/18 16:00 Temperature 97.6 F Pulse Rate 100 H 104 H 101 H Respiratory Rate 17 18 19 Blood Pressure 111/56 L 115/55 L Pulse Oximetry 100 97 97 04/28/18 16:01 04/28/18 16:30 04/28/18 17:00 Temperature Pulse Rate 101 H 105 H 108 H Respiratory Rate 18 18 19 Blood Pressure 112/56 L 115/58 L 117/55 L Pulse Oximetry 98 97 100 04/28/18 17:30 04/28/18 18:00 04/28/18 18:30 Temperature 99.3 F Pulse Rate 109 H 109 H 111 H Respiratory Rate 19 18 20 Blood Pressure 116/55 L 118/57 L 117/55 L Pulse Oximetry 100 100 100 04/28/18 19:00 04/28/18 20:00 04/28/18 20:19 Temperature 98.2 F Pulse Rate 115 H 116 H Respiratory Rate 22 21 21 Blood Pressure 115/54 L 122/58 L Pulse Oximetry 100 100 100 04/28/18 20:22 04/28/18 21:00 04/28/18 22:00 Temperature Pulse Rate 114 H 121 H 120 H Respiratory Rate 22 21 21 Blood Pressure 126/58 L 122/57 L Pulse Oximetry 100 100 04/29/18 00:00 04/29/18 00:31 04/29/18 00:33 Temperature 98.5 F Pulse Rate 128 H 123 H Respiratory Rate 23 20 20 Blood Pressure 122/58 L Pulse Oximetry 100 100 04/29/18 01:00 04/29/18 02:00 04/29/18 03:00 Temperature Pulse Rate 122 H 118 H 120 H Respiratory Rate 23 22 21 Blood Pressure 120/56 L 122/57 L 112/56 L Pulse Oximetry 100 100 100 04/29/18 04:00 04/29/18 04:37 04/29/18 05:00 Temperature 99.5 F Pulse Rate 118 H 113 H 118 H Respiratory Rate 22 21 21 Blood Pressure 121/58 L 123/61 Pulse Oximetry 99 100 100 04/29/18 06:00 04/29/18 07:00 04/29/18 07:30 Temperature Pulse Rate 122 H 124 H 123 H Respiratory Rate 20 20 22 Blood Pressure 124/59 L 130/60 132/59 L Pulse Oximetry 99 95 95 04/29/18 08:00 04/29/18 08:30 04/29/18 09:00 Temperature 99 F Pulse Rate 121 H 122 H 125 H Respiratory Rate 20 20 Blood Pressure 131/60 131/60 133/61 Pulse Oximetry 94 L 94 L 96 04/29/18 09:30 04/29/18 09:35 04/29/18 11:00 Temperature Pulse Rate 123 H 123 H 119 H Respiratory Rate 21 21 22 Blood Pressure 135/60 Pulse Oximetry 93 L 99 04/29/18 11:52 Temperature Pulse Rate Respiratory Rate 21 Blood Pressure Pulse Oximetry 94 L Intake & Output 1004/29/18 04/29/18 18:59 06:59 18:59 Intake Total 1200 / 1200 1200 / 1200 100 / 100 Output Total 600 / 600 925 / 925 Balance 600 / 600 275 / 275 100 / 100 Weight 180.3 kg Intake: IV 1200 / 1200 1200 / 1200 100 / 100 NS Inj 1,000 ML @ 84 mls/hr IV. 1000 / 1000 1000 / 1000 CONT .[id number] DARRION Rx#: [id number] Zosyn 4.5 GM Premix 4.5 gm In 200 / 200 200 / 200 100 / 100 100 ml @ 200 mls/hr IV.SIG Q6H DARRION Rx#:[id number] Oral 0 / 0 Output: Urine Amount (Catheter) 600 / 600 925 / 925 Indwelling Urethral Catheter 600 / 600 925 / 925 Other: # Bowel Movements 0 0 Result Diagrams: 04/29/18 04:45 04/29/18 04:45 Other Results: Microbiology 04/27/18 14:30 Sputum - Oral Tracheal Aspirate Gram Stain - Final 04/27/18 14:30 Sputum - Oral Tracheal Aspirate Sputum Culture - Preliminary Beta Strep not group A Staphylococcus aureus 04/27/18 11:55 Blood - Line Aerobic Blood Culture - Preliminary No growth in 2 days 04/27/18 11:55 Blood - Line Anaerobic Blood Culture - Preliminary No growth in 2 days 04/27/18 12:00 Blood - Line Aerobic Blood Culture - Preliminary No growth in 2 days 04/27/18 12:00 Blood - Line Anaerobic Blood Culture - Preliminary No growth in 2 days Imaging: Chest X-Ray 04/27/18 11:31 CONCLUSION: ETT in good position. Cardiomegaly with moderate interstitial edema. Head CT 04/27/18 11:31 CONCLUSION: 1. Negative CT Head non contrast. . Abdomen/Pelvis CT 04/27/18 11:35 CONCLUSION: 1. Extensive atelectasis in both lower lobes. 2. The Stone catheter needs to be deflated and advanced into the bladder. The catheter is at the level of the prosthetic urethra. 3. No findings to indicate a bowel obstruction are seen. No free air free fluid is identified. Chest CT 04/27/18 11:35 CONCLUSION: 1. Consolidation both posterior lungs with air bronchograms. This could represent bilateral pneumonia or aspiration. Cervical Spine CT 04/27/18 11:36 CONCLUSION: 1. Negative trauma study. Lumbar Spine CT 04/27/18 11:59 CONCLUSION: 1. Negative for acute process 2. There is no evidence for vertebral compression. Chest X-Ray 04/27/18 12:01 CONCLUSION: ETT in good position. Increasing interstitial edema. Chest X-Ray 04/27/18 16:04 CONCLUSION: 1. Double placement of left internal jugular central venous line with no visualized pneumothorax on the supine study. 2. The patient remains intubated and there are alveolar opacities greatest in the right lung. Chest X-Ray 04/28/18 15:23 CONCLUSION: 1. Worsening perihilar and bibasilar opacities most characteristic of pulmonary edema. 2. Blunting of the costophrenic angles consistent with effusions. 3. Cardiomegaly. 4. Placement of nasogastric tube which is not well visualized. Chest X-Ray 04/29/18 04:00 CONCLUSION: Right greater than left parenchymal opacities, intervally worse on the right and improved on the left. Head MRI 04/29/18 07:05 CONCLUSION: 1. Negative MRI of the brain. 2. Inflammatory process cannot be entirely excluded. 3. There are no infarcts identified. Objective Remarks: GENERAL: Patient is 22 yo intubated . SKIN: Warm and dry. No rash HEAD: Normocephalic. EYES: No scleral icterus. No injection or drainage. NECK: Supple, trachea midline. No JVD or lymphadenopathy. CARDIOVASCULAR: Regular rate and rhythm without murmurs, gallops, or rubs. RESPIRATORY: Breath sounds equal bilaterally. No accessory muscle use. GASTROINTESTINAL: Abdomen soft, non-tender, nondistended. MUSCULOSKELETAL: No significant peripheral edema. Neuro: intubated, corneal reflex intact. Positive gag and cough. Withdraws to pain all 4 extremities. Currently arousable but not following commands and moves all 4 extremities spontaneously Assessment and Plan - Assessment and Plan Plan: NEURO/PSYCH: Acute metabolic encephalopathy Suspected PCP overdose Suspected ethylene glycol overdose Suicide attempt -PCP was found near the patient ,continue supportive care -Started on dexmedetomidine drip currently 0.5 mcg/kg/hr for sedation -monitor neuro status -Patient had a bicarb of 26, osmolar gap is only 13, this makes ethylene glycol toxicity unlikely -Urine drug screen positive for benzos only -Psychiatric consult after neurological recovery -CT of the head negative. MRI of brain negative. Cannot rule out inflammatory process -Check EEG tomorrow and follow-up EEG 04/28 with no epileptic activity -Ammonia level: 21 -Neuro eval RESP: Acute respiratory failure Bibasilar aspiration pneumonitis -Continue with vent support keep sats >92% PRVC +10 at 80% -Ventilator bundle. Decrease FIO2: To keep saturations greater than equal to 90% -Albuterol/ipratropium aerosols every 4 hours with albuterol aerosols every 2 hours as needed dyspnea -SBT when appropriate CV: Hypotension Lactic acidosis -Off norepinephrine monitor HR and BP keep MAP>65mmHg -Normal saline IV fluids at 84 ml per hour -Lactic acid 1.7 GI: - IV famotidine -Start tube feeds Jevity 1.5with goal rate 75ml/hr with free water flushes 100 cc every 8 hours Renal/FEN/: -Monitor renal function, I/O's, electrolytes replacement as needed -CT abd/pelvis: No findings to indicate a bowel obstruction are seen. No free air free fluid is identified. ID: Continue with piperacillin/tazobactam and monitor for signs of infections ( Fever, WBC)WBC is trending down. Follow up on blood and sputum cxs. HEME: Normocytic anemia -Monitor CBC, coags ENDO/FEN: Hyperglycemia -Electrolyte replacement per protocol -Sliding scale insulin PROPH: -Bilateral lower extremity SCDs. Subcu heparin/famotidine LINES: -Utilize peripheral IVs, [facility] central line placed in ED 04/27 CC time 35 min
[2018-04-29] MEDS ORDERED: Potassium Phos/Sodium Phos 250 MG Tablet PO ONE (13:06)
[2018-04-29] MEDS: Propofol 1000 mg/100 ml Inj 1,000 MG/100 ML BOTTLE IV.CONT PRN ×3 (17:50→23:41)
[2018-04-29] MEDS: fentaNYL 10 mcg/mL Premix Drip 2,500 MCG/250 ML BAG IV.SIG PRN (17:50)
[2018-04-30] MEDS: Piperacil/Tazo 4.5 GM Premix 4.5 GM/100 ML BAG IV.SIG SCH ×4 (02:04→20:42)
[2018-04-30] MEDS: fentaNYL 10 mcg/mL Premix Drip 2,500 MCG/250 ML BAG IV.SIG PRN ×3 (02:05→20:47)
[2018-04-30] MEDS: Sod Chloride 0.9% Inj 1,000 ML IV.CONT SCH (02:07)
[2018-04-30] MEDS: Propofol 1000 mg/100 ml Inj 1,000 MG/100 ML BOTTLE IV.CONT PRN ×6 (02:07→23:59)
[2018-04-30] MEDS: Chlorhexidine Gluconate 2% 1 Pack (2 Cloths) TOPICAL SCH (03:14)
--- NOTE | 2018-04-30 05:07 | XR ---
EXAM DATE: 04/30/2018 4:30 AM EDT AGE/SEX: 22 years / Male INDICATIONS: Shortness of breath, possible pulmonary disease. CLINICAL DATA: This is the patient's subsequent encounter. Patient reports that signs and symptoms h ave been present for 4 - 6 days and indicates a pain score of Nonresponsive. MEDICAL/SURGICAL HISTORY: None. Tonsillectomy. COMPARISON: [facility] [place], CHEST 1V SINGLE AP, 04/29/2018. . FINDINGS: Mild consolidation and small effusions at both lung bases again seen and not significantly changed, r ight more so than left. No perceptible pneumothorax. Heart size stable, upper limits of normal. Endotracheal tube tip is at the level of the thoracic inle t. Nasogastric tube courses into the stomach. There is a left internal jugular central venous cathete r with tip in the superior vena cava. CONCLUSION: No significant change right greater than left basilar consolidation and pleural effusions. Electronically signed by: Alexis Wyatt MD 04/30/2018 5:06 AM EDT
[2018-04-30 05:27] LABS: Baso % (Auto) 0.3 % (0.0-2.0); Eos % (Auto) 0.4 % (0.0-4.0); Hematocrit 32.6 % (39.0-51.0); Lymph % (Auto) 15.6 % (9.0-44.0); Mean Corpuscular HGB Conc 33.6 % (32.0-36.0); Mean Corpuscular Hemoglobin 29.8 pg (27.0-34.0); Mean Corpuscular Volume 88.8 fL (80.0-100.0); Mean Platelet Volume 7.4 fL (7.0-11.0); Mono # (Auto) 1.4 th/mm3 (0.0-0.9); Mono % (Auto) 10.9 % (0.0-8.0); Neut # (Auto) 9.5 th/mm3 (1.8-7.7); Neut % (Auto) 72.8 % (16.0-70.0); Platelet Count 242 th/mm3 (150-450); Red Blood Count 3.67 mil/mm3 (4.50-5.90); Red Cell Distribution Width 15.5 % (11.6-17.2)
[2018-04-30] MEDS: Insulin NovoLOG Aspart Correctional Sugar Inj SQ SCH ×3 (05:27→17:39)
[2018-04-30] MEDS: Heparin - SQ 10,000 UNITS/ML Vial SQ SCH ×2 (05:27→17:19)
[2018-04-30 06:02] LABS: Alanine Aminotransferase 35 U/L (9-52); Albumin 2.8 g/dL (3.4-5.0); Anion Gap 9 meq/L (5-15); Aspartate Aminotransferase 58 U/L (15-39); Blood Urea Nitrogen 17 mg/dL (7-18); Calcium 7.8 mg/dL (8.5-10.1); Carbon Dioxide 27.5 meq/L (21.0-32.0); Chloride 111 meq/L (98-107); Glomerular Filtration Rate Greater Than 89 mL/min (>89); Glucose,Random 98 mg/dL (74-106); Magnesium 2.4 mg/dL (1.5-2.5); Potassium 4.3 meq/L (3.5-5.1); Sodium 147 meq/L (136-145)
[2018-04-30 06:05] LABS: Alkaline Phosphatase 61 U/L (45-117); Phosphorus 3.4 mg/dL (2.5-4.9); Total Protein 6.4 g/dL (6.4-8.2)
[2018-04-30] MEDS: Pantoprazole Inj 40 MG Vial IV.PUSH SCH (08:06)
[2018-04-30] MEDS: Senna/Docusate Sodium 8.6/50 MG Tablet PO SCH ×2 (08:06→20:41)
--- NOTE | 2018-04-30 08:31 | P.PNNEU ---
Subjective Subjective Comments: No acute events Active Medications: Active Medications Acetaminophen (Tylenol Liq) 650 mg PO Q6H PRN PRN Reason: FEVER Last Admin: 04/30/18 04:40 Dose: 650 mg Al Hydroxide/Mg Hydroxide (Milk Of Magnesia Liq) 30 ml PO Q12H PRN PRN Reason: Mild Constipation Albuterol (Albuterol Neb (Prn)) 2.5 mg NEB Q2HR NEB PRN PRN Reason: SHORTNESS OF BREATH/WHEEZING Albuterol (Duoneb Neb (Susan)) 1 ampul NEB Q4HR NEB [facility] Last Admin: 04/30/18 04:36 Dose: 1 ampul Artificial Tears (Tears Naturale Opth Drops) 1 drop EACH EYE Q8H [facility] Last Admin: 04/29/18 23:41 Dose: Not Given Bisacodyl (Dulcolax Supp) 10 mg RECTAL DAILY PRN PRN Reason: SEVERE CONSITIPATION Chlorhexidine Gluconate (Chlorhexidine 2% Cloth) 3 pack TOPICAL DAILY@0400 [facility] Stop: 05/03/18 03:59 Last Admin: 04/30/18 03:14 Dose: 3 pack Chlorhexidine Gluconate (Chlorhexidine 2% Cloth) 3 pack TOPICAL DAILY@0400 PRN PRN Reason: Extra cloth needed Stop: 05/03/18 03:59 Dextrose (D50w Vial) 50 ml IV.PUSH UNSCH PRN PRN Reason: PER HYPOGLYCEMIA PROTOCOL Glucagon (Glucagon Inj) 1 mg OTHER PRN PRN PRN Reason: for Hypoglycemia Protocol Heparin Sodium (Porcine) (Heparin Inj) 5,000 units SQ Q12H [facility] Last Admin: 04/30/18 05:27 Dose: 5,000 units Sodium Chloride (Ns Inj) 1,000 mls @ 84 mls/hr IV.CONT .[id number] [facility] Last Admin: 04/30/18 02:07 Dose: 84 mls/hr Norepinephrine Bitartrate 16 (mg/ Sodium Chloride) 250 mls @ 1.87 mls/hr IV.CONT TITRATE PRN; Protocol PRN Reason: See Protocol Last Titration: 04/28/18 05:50 Dose: 0 mcg/min, 0 mls/hr Magnesium Sulfate 4 gm/ Sodium (Chloride) 100 mls @ 50 mls/hr IV.SIG UNSCH PRN PRN Reason: For Magnesium 0.9 - 1.1 mg/dL Potassium Chloride (Kcl 40 Meq Premix Inj) 40 meq in 100 mls @ 25 mls/hr IV.SIG Q2H PRN PRN Reason: For Potassium 2.8 - 3.2 mEq/L Potassium Chloride (Kcl 20 Meq Premix Inj) 20 meq in 100 mls @ 50 mls/hr IV.SIG Q2H PRN PRN Reason: For Potassium 3.3 - 3.5 mEq/L Potassium Chloride (Kcl 40 Meq Premix Inj) 40 meq in 100 mls @ 25 mls/hr IV.SIG UNSCH PRN PRN Reason: For Potassium 3.3 - 3.5 mEq/L Potassium Chloride (Kcl 20 Meq Premix Inj) 20 meq in 100 mls @ 50 mls/hr IV.SIG Q2H PRN PRN Reason: For Potassium 2.8 - 3.2 mEq/L Potassium Phosphate 30 mmol/ (Sodium Chloride) 260 mls @ 42 mls/hr IV.SIG UNSCH PRN PRN Reason: SEE LABEL COMMENTS Magnesium Sulfate 2 gm/ Sodium (Chloride) 100 mls @ 50 mls/hr IV.SIG UNSCH PRN PRN Reason: For Magnesium 1.2 - 1.6 mg/dL Sodium Phosphate 30 mmol/ (Sodium Chloride) 260 mls @ 42 mls/hr IV.SIG UNSCH PRN PRN Reason: For Phosphorus < 2.5 mg/dL Propofol (Diprivan 1000 Mg/100 Ml Inj) 1,000 mg in 100 mls @ 4.77 mls/hr IV.CONT TITRATE PRN; Protocol PRN Reason: Per Protocol Last Admin: 04/30/18 06:06 Dose: 25 mcg/kg/min, 23.85 mls/hr Fentanyl (Fentanyl 10 Mcg/Ml Premix Drip) 2,500 mcg in 250 mls @ 5 mls/hr IV.SIG TITRATE PRN; Protocol PRN Reason: Per Protocol Last Admin: 04/30/18 02:05 Dose: 250 mcg/hr, 25 mls/hr Piperacillin/Tazobactam/Dextrose (Zosyn 4.5 Gm Premix) 4.5 gm in 100 mls @ 200 mls/hr IV.SIG Q6H [facility] Last Admin: 04/30/18 08:05 Dose: 200 mls/hr Vancomycin HCl 1,000 mg/ (Sodium Chloride) 250 mls @ 200 mls/hr IV.SIG [employer] [facility] Dexmedetomidine HCl 200 mcg/ (Sodium Chloride) 50 mls @ 9.01 mls/hr IV.CONT TITRATE PRN; Protocol PRN Reason: Per Protocol Last Titration: 04/29/18 17:53 Dose: 0 mcg/kg/hr, 0 mls/hr Insulin Aspart (Novolog Insulin Correctional Sugar Inj) 0 unit SQ Q6HR [facility]; Protocol Last Admin: 04/30/18 05:27 Dose: Not Given Lactulose (Lactulose Liq) 30 ml PO DAILY PRN PRN Reason: SEVERE CONSITIPATION Magnesium Oxide (Mag-Ox) 800 mg PO UNSCH PRN PRN Reason: For Magnesium 1.2 - 1.6 mg/dL Ondansetron HCl (Zofran Inj) 4 mg IV.PUSH Q6H PRN PRN Reason: NAUSEA OR VOMITING Pantoprazole Sodium (Protonix Inj) 40 mg IV.PUSH DAILY [facility] Last Admin: 04/30/18 08:06 Dose: 40 mg Potassium Bicarb/Potassium Chloride (K-Lyte Cl Eff) 50 meq PO UNSCH PRN PRN Reason: For Potassium 3.3 - 3.5 mEq/L Potassium Phosphate (K-Phos Original) 2,000 mg PO Q4H PRN PRN Reason: Phosphorus Less Than 2.5 mg/dL Potassium Phosphate (K-Phos Original) 2,000 mg PO UNSCH PRN PRN Reason: SEE LABEL COMMENTS Senna/Docusate Sodium (Jemima-Colace) 1 tab PO BID [facility] Last Admin: 04/30/18 08:06 Dose: 1 tab Sennosides (Senokot) 17.2 mg PO Q12H PRN PRN Reason: Moderate Constipation Sodium Chloride (Ns Flush) 2 ml IV.FLUSH BID [facility] Last Admin: 04/30/18 08:06 Dose: 2 ml Sodium Chloride (Ns Flush) 2 ml IV.FLUSH PRN PRN PRN Reason: FLUSH AFTER USING IV ACCESS Terbutaline Sulfate (Brethine Inj) 1 mg SQ UNSCH PRN PRN Reason: For Extravasation Allergies/Adverse Reactions: Allergies Allergy/AdvReac Type Severity Reaction Status Date / Time shellfish derived Allergy Anaphylaxis Verified 04/29/18 13:12 No Known Allergies Allergy Uncoded 04/29/18 13:12 Review of Systems unobtainable due to endotracheal tube, unobtainable due to mental status Physical Exam Vital signs: Vital Signs 04/29/18 08:30 04/29/18 09:00 04/29/18 09:30 Temperature Pulse Rate 122 H 125 H 123 H Respiratory Rate 20 21 Blood Pressure 131/60 133/61 135/60 Pulse Oximetry 94 L 96 93 L 04/29/18 09:35 04/29/18 10:31 04/29/18 11:00 Temperature Pulse Rate 123 H 128 H 119 H Respiratory Rate 21 20 Blood Pressure Pulse Oximetry 99 87 L 93 L 04/29/18 11:52 04/29/18 12:00 04/29/18 13:00 Temperature Pulse Rate 118 H 101 H Respiratory Rate 21 20 22 Blood Pressure Pulse Oximetry 94 L 94 L 94 L 04/29/18 13:31 04/29/18 14:00 04/29/18 14:30 Temperature 99.3 F Pulse Rate 101 H 105 H 102 H Respiratory Rate 23 Blood Pressure 116/59 L 119/56 L 118/58 L Pulse Oximetry 97 96 97 04/29/18 15:00 04/29/18 15:30 04/29/18 16:00 Temperature Pulse Rate 102 H 104 H 108 H Respiratory Rate 22 Blood Pressure 118/58 L 120/62 Pulse Oximetry 97 96 97 04/29/18 16:01 04/29/18 16:30 04/29/18 17:00 Temperature Pulse Rate 108 H 106 H 104 H Respiratory Rate Blood Pressure 125/60 125/59 L 125/61 Pulse Oximetry 97 95 95 04/29/18 17:26 04/29/18 17:28 04/29/18 17:30 Temperature Pulse Rate 118 H 110 H Respiratory Rate 18 26 H Blood Pressure 131/64 129/60 Pulse Oximetry 89 L 93 L 92 L 04/29/18 17:45 04/29/18 18:00 04/29/18 18:15 Temperature 101.4 F H Pulse Rate 109 H 108 H 105 H Respiratory Rate 19 18 Blood Pressure 128/59 L 127/60 124/57 L Pulse Oximetry 94 L 94 L 95 04/29/18 18:30 04/29/18 18:45 04/29/18 19:00 Temperature Pulse Rate 103 H 104 H 105 H Respiratory Rate 17 18 16 Blood Pressure 122/58 L 127/58 L 126/58 L Pulse Oximetry 97 98 98 04/29/18 19:15 04/29/18 19:30 04/29/18 19:45 Temperature Pulse Rate 108 H 110 H 113 H Respiratory Rate 18 17 18 Blood Pressure 128/59 L 131/60 137/62 Pulse Oximetry 98 98 98 04/29/18 20:00 04/29/18 20:01 04/29/18 20:15 Temperature 101.2 F H Pulse Rate 113 H 113 H 115 H Respiratory Rate 23 17 17 Blood Pressure 139/60 141/62 H Pulse Oximetry 97 97 96 04/29/18 20:30 04/29/18 20:45 04/29/18 21:00 Temperature Pulse Rate 116 H 115 H 115 H Respiratory Rate 17 18 17 Blood Pressure 142/62 H 137/61 138/61 Pulse Oximetry 97 95 95 04/29/18 21:15 04/29/18 21:30 04/29/18 21:45 Temperature Pulse Rate 115 H 112 H 114 H Respiratory Rate 17 16 18 Blood Pressure 140/63 140/62 137/62 Pulse Oximetry 95 95 95 04/29/18 22:00 04/29/18 22:15 04/29/18 23:00 Temperature Pulse Rate 116 H 114 H 117 H Respiratory Rate 18 16 14 Blood Pressure 140/65 141/65 H 139/63 Pulse Oximetry 96 96 95 04/30/18 00:00 04/30/18 00:56 04/30/18 01:00 Temperature 100.2 F H Pulse Rate 120 H 110 H 115 H Respiratory Rate 19 16 17 Blood Pressure 143/65 H Pulse Oximetry 95 95 04/30/18 01:01 04/30/18 02:00 04/30/18 03:00 Temperature Pulse Rate 115 H 125 H 115 H Respiratory Rate 17 45 H 22 Blood Pressure 138/61 144/62 H Pulse Oximetry 97 94 L 91 L 04/30/18 03:01 04/30/18 04:00 04/30/18 04:01 Temperature 99.9 F H Pulse Rate 114 H 112 H 112 H Respiratory Rate 22 14 11 L Blood Pressure 140/61 133/60 Pulse Oximetry 92 L 95 96 04/30/18 04:35 04/30/18 04:36 04/30/18 05:00 Temperature Pulse Rate 120 H 123 H Respiratory Rate 18 17 41 H Blood Pressure 138/60 Pulse Oximetry 94 L 94 L 04/30/18 06:00 04/30/18 06:01 Temperature 99 F Pulse Rate 115 H 115 H Respiratory Rate 21 21 Blood Pressure 138/64 Pulse Oximetry 92 L 92 L Intake & Output 04/29/18 04/30/18 04/30/18 18:59 06:59 18:59 Intake Total 1250 / 1250 2311 / 2311 Output Total 700 / 700 1000 / 1000 Balance 550 / 550 1311 / 1311 Weight 182.5 kg Intake: IV 1250 / 1250 1850 / 1850 Precedex Inj 200 MCG In NS Inj 50 / 50 48 ML @ 0.2 MCG/KG/HR 9.01 mls/ hr IV.CONT TITRATE PRN Rx#: [id number] Diprivan 1000 mg/100 ml Inj 1, 400 / 400 000 mg In 100 ml @ 5 MCG/KG/MIN 4.77 mls/hr IV.CONT TITRATE PRN Rx#:[id number] NS Inj 1,000 ML @ 84 mls/hr IV. 1000 / 1000 1000 / 1000 CONT .[id number] [facility] Rx#: [id number] Zosyn 4.5 GM Premix 4.5 gm In 200 / 200 200 / 200 100 ml @ 200 mls/hr IV.SIG Q6H [facility] Rx#:[id number] fentaNYL 10 mcg/mL Premix Drip 250 / 250 2,500 mcg In 250 ml @ 50 MCG/HR 5 mls/hr IV.SIG TITRATE PRN Rx #:[id number] Tube Feeding 361 / 361 Water Bolus Amount 100 / 100 Output: Urine Amount (Catheter) 700 / 700 1000 / 1000 Straight 700 / 700 1000 / 1000 Other: # Bowel Movements 0 Narrative: GENERAL: in NAD, obese SKIN: Warm and dry. HEAD: Atraumatic. Normocephalic. NECK: Intubated CARDIOVASCULAR: Regular rate and rhythm. RESPIRATORY: Intubated GASTROINTESTINAL: Abdomen soft, non-tender, nondistended. MUSCULOSKELETAL: Extremities without clubbing, cyanosis, or edema. No obvious deformities. NEUROLOGICAL: Intubated, on sedation, grimaces, partially opens eyes, turns head side to side not following verbalizing +withdrawal of le, flexion of upper extremity PSYCHIATRIC: Calm - Constitutional no acute distress - Routine HEENT Exam Head: Present: normocephalic - Urinary Catheter Management Indwelling Urethral Catheter Cath placed during this visit: yes, but has since been removed by the nurse Reason for continuing: Decision to DC catheter Insertion date: 04/27/18 Insertion time: 12:15 Removal date: 04/28/18 Removal time: 18:45 Straight Cath placed during this visit: yes, but has since been removed by the nurse Reason for continuing: Not indwelling catheter Insertion date: 04/30/18 Insertion time: 05:00 Removal date: 04/30/18 Removal time: 05:00 Objective Laboratory Results - last 24 hr 04/29/18 04/29/18 04/29/18 11:00 11:36 18:04 WBC RBC Hgb Hct MCV MCH MCHC RDW Plt Count MPV Neut % (Auto) Lymph % (Auto) [place] % (Auto) Eos % (Auto) Baso % (Auto) Neut # (Auto) Lymph # (Auto) [place] # (Auto) Eos # (Auto) Baso # (Auto) WBC Differential Differential Comment Puncture Site Right radial Patient Temperature 98.6 O2 Saturation 95 ABG pH 7.40 ABG pCO2 39 ABG pO2 103 ABG HCO3 24 ABG O2 Content 15.1 ABG Base Excess -0.3 ABG Methemoglobin 1.8 Noah Test Present Hemoglobin 11.3 L Carboxyhemoglobin 1.0 O2 Delivery Device Ventilator Vent Setting See comments Inspired O2 80 Critical Value No Sodium Potassium Chloride Carbon Dioxide Anion Gap BUN Creatinine Estimated GFR POC Glucose 123 H 122 H Random Glucose Calcium Phosphorus Magnesium Total Bilirubin AST ALT Alkaline Phosphatase Total Protein Albumin 04/29/18 04/30/18 04/30/18 23:08 03:30 03:30 WBC 13.0 H RBC 3.67 L Hgb 11.0 L Hct 32.6 L MCV 88.8 MCH 29.8 MCHC 33.6 RDW 15.5 Plt Count 242 MPV 7.4 Neut % (Auto) 72.8 H Lymph % (Auto) 15.6 [place] % (Auto) 10.9 H Eos % (Auto) 0.4 Baso % (Auto) 0.3 Neut # (Auto) 9.5 H Lymph # (Auto) 2.0 [place] # (Auto) 1.4 H Eos # (Auto) 0.0 Baso # (Auto) 0.0 WBC Differential . Differential Comment Auto diff final Puncture Site Patient Temperature O2 Saturation ABG pH ABG pCO2 ABG pO2 ABG HCO3 ABG O2 Content ABG Base Excess ABG Methemoglobin Noah Test Hemoglobin Carboxyhemoglobin O2 Delivery Device Vent Setting Inspired O2 Critical Value Sodium 147 H Potassium 4.3 Chloride 111 H Carbon Dioxide 27.5 Anion Gap 9 BUN 17 Creatinine 0.90 Estimated GFR Greater than 89 POC Glucose 94 Random Glucose 98 Calcium 7.8 L Phosphorus 3.4 D Magnesium 2.4 Total Bilirubin 0.3 AST 58 H ALT 35 Alkaline Phosphatase 61 Total Protein 6.4 Albumin 2.8 L 04/30/18 04/30/18 05:25 08:03 WBC RBC Hgb Hct MCV MCH MCHC RDW Plt Count MPV Neut % (Auto) Lymph % (Auto) [place] % (Auto) Eos % (Auto) Baso % (Auto) Neut # (Auto) Lymph # (Auto) [place] # (Auto) Eos # (Auto) Baso # (Auto) WBC Differential Differential Comment Puncture Site Patient Temperature O2 Saturation ABG pH ABG pCO2 ABG pO2 ABG HCO3 ABG O2 Content ABG Base Excess ABG Methemoglobin Noah Test Hemoglobin Carboxyhemoglobin O2 Delivery Device Vent Setting Inspired O2 Critical Value Sodium Potassium Chloride Carbon Dioxide Anion Gap BUN Creatinine Estimated GFR POC Glucose 131 H 135 H Random Glucose Calcium Phosphorus Magnesium Total Bilirubin AST ALT Alkaline Phosphatase Total Protein Albumin Microbiology 04/27/18 14:30 Gram Stain - Final Sputum - Oral Tracheal Aspirate Sputum Culture - Preliminary Beta Strep not group A Staphylococcus aureus 04/27/18 11:55 Aerobic Blood Culture - Preliminary Blood - Line No growth in 2 days Anaerobic Blood Culture - Preliminary No growth in 2 days 04/27/18 12:00 Aerobic Blood Culture - Preliminary Blood - Line No growth in 2 days Anaerobic Blood Culture - Preliminary No growth in 2 days Review/Management - Diagnosis (1) Suicide attempt by multiple drug overdose Code(s): T50.902A - Poisoning by unspecified drugs, medicaments and biological substances, intentional self-harm, initial encounter Status: Deleted Current Visit: Yes (2) Acute metabolic encephalopathy Code(s): G93.41 - Metabolic encephalopathy Status: Deleted Current Visit: Yes (3) Acute respiratory failure Code(s): J96.00 - Acute respiratory failure, unspecified whether with hypoxia or hypercapnia Status: Deleted Current Visit: Yes (4) Aspiration pneumonitis Code(s): J69.0 - Pneumonitis due to inhalation of food and vomit Status: Deleted Current Visit: Yes (5) PCP intoxication Code(s): F16.929 - Hallucinogen use, unspecified with intoxication, unspecified Status: Deleted Current Visit: Yes (6) Toxic encephalopathy Code(s): G92 - Toxic encephalopathy Status: Acute Current Visit: Yes - Review/Management Plan: Drug-induced encephalopathy. Possible PCP although exact substance in the bag is not known; father thinks he may have overdosed on Sonata which case he should slowly wake up CT brain negative Recommendation On mild sedation but more spontaneous movement Extubation per critical care should slowly start to wake up Discussed with RN
[2018-04-30] MEDS: Artificial Tears Opth Drops 15 ML Bottle EACH EYE SCH ×2 (10:39→15:57)
--- NOTE | 2018-04-30 13:35 | P.PNCC ---
Subjective Subjective Remarks/Hospital Course: Patient is approximately 22 years old male obese, was found on the floor by a family member, downtime is unknown. EMS was called, patient was given Narcan with no response, he was intubated on the scene, apparently GCS 3. Found bag of PCP next to the patient. Patient has history of psychiatric disorder ? bipolar disorder and I am told he has attempted suicide in the past. There is also mention about suspicion of ethylene glycol ingestion, but his serum osmolality is 307 his osmolar gap is only 13. Bicarb is 26, ethylene glycol seems unlikely. Ethanol was negative urine drug screen only positive for benzo. I evaluated the patient in the ICU at the [facility]. Patient had a CT of the head which was negative. Rest of the workup unremarkable except for bibasilar atelectasis/aspiration pneumonia. Patient's white count is elevated at 17.1, glucose is 232 lactic acid was 2.8. He received multiple fluid boluses. At this time he is not on any sedation but remains unresponsive no response to deep pain 04/28 Patient remains intubated off sedation unresponsive. Afebrile. 04/29: MRI of the brain revealed no acute intracranial findings. EEG to be performed tomorrow. More arousable and moves all 4 extremities but not following commands. Placed on dexamethasone E drip. 2 feeds will be restarted SUBJECTIVE: 04/30: T-max 101.4. Currently afebrile. No bowel movement since admission. Arousable and follows simple commands late last night but currently on sedation for agitation. Increased FiO2 noted. Will attempt to gently diurese and continue antibiotics for pansensitive staph aureus/group a beta strep sputum Objective Vital Signs / I&O: Vital Signs 04/29/18 14:00 04/29/18 14:30 04/29/18 15:00 Temperature Pulse Rate 105 H 102 H 102 H Respiratory Rate 23 22 Blood Pressure 119/56 L 118/58 L 118/58 L Pulse Oximetry 96 97 97 04/29/18 15:30 04/29/18 16:00 04/29/18 16:01 Temperature Pulse Rate 104 H 108 H 108 H Respiratory Rate Blood Pressure 120/62 125/60 Pulse Oximetry 96 97 97 04/29/18 16:30 04/29/18 17:00 04/29/18 17:26 Temperature Pulse Rate 106 H 104 H 118 H Respiratory Rate Blood Pressure 125/59 L 125/61 131/64 Pulse Oximetry 95 95 89 L 04/29/18 17:28 04/29/18 17:30 04/29/18 17:45 Temperature 101.4 F H Pulse Rate 110 H 109 H Respiratory Rate 18 26 H Blood Pressure 129/60 128/59 L Pulse Oximetry 93 L 92 L 94 L 04/29/18 18:00 04/29/18 18:15 04/29/18 18:30 Temperature Pulse Rate 108 H 105 H 103 H Respiratory Rate 19 18 17 Blood Pressure 127/60 124/57 L 122/58 L Pulse Oximetry 94 L 95 97 04/29/18 18:45 04/29/18 19:00 04/29/18 19:15 Temperature Pulse Rate 104 H 105 H 108 H Respiratory Rate 18 16 18 Blood Pressure 127/58 L 126/58 L 128/59 L Pulse Oximetry 98 98 98 04/29/18 19:30 04/29/18 19:45 04/29/18 20:00 Temperature 101.2 F H Pulse Rate 110 H 113 H 113 H Respiratory Rate 17 18 23 Blood Pressure 131/60 137/62 139/60 Pulse Oximetry 98 98 97 04/29/18 20:01 04/29/18 20:15 04/29/18 20:30 Temperature Pulse Rate 113 H 115 H 116 H Respiratory Rate 17 17 17 Blood Pressure 141/62 H 142/62 H Pulse Oximetry 97 96 97 04/29/18 20:45 04/29/18 21:00 04/29/18 21:15 Temperature Pulse Rate 115 H 115 H 115 H Respiratory Rate 18 17 17 Blood Pressure 137/61 138/61 140/63 Pulse Oximetry 95 95 95 04/29/18 21:30 04/29/18 21:45 04/29/18 22:00 Temperature Pulse Rate 112 H 114 H 116 H Respiratory Rate 16 18 18 Blood Pressure 140/62 137/62 140/65 Pulse Oximetry 95 95 96 04/29/18 22:15 04/29/18 23:00 04/30/18 00:00 Temperature 100.2 F H Pulse Rate 114 H 117 H 120 H Respiratory Rate 16 14 19 Blood Pressure 141/65 H 139/63 143/65 H Pulse Oximetry 96 95 95 04/30/18 00:56 04/30/18 01:00 04/30/18 01:01 Temperature Pulse Rate 110 H 115 H 115 H Respiratory Rate 16 17 17 Blood Pressure 138/61 Pulse Oximetry 95 97 04/30/18 02:00 04/30/18 03:00 04/30/18 03:01 Temperature Pulse Rate 125 H 115 H 114 H Respiratory Rate 45 H 22 22 Blood Pressure 144/62 H 140/61 Pulse Oximetry 94 L 91 L 92 L 04/30/18 04:00 04/30/18 04:01 04/30/18 04:35 Temperature 99.9 F H Pulse Rate 112 H 112 H Respiratory Rate 14 11 L 18 Blood Pressure 133/60 Pulse Oximetry 95 96 94 L 04/30/18 04:36 04/30/18 05:00 04/30/18 06:00 Temperature 99 F Pulse Rate 120 H 123 H 115 H Respiratory Rate 17 41 H 21 Blood Pressure 138/60 Pulse Oximetry 94 L 92 L 04/30/18 06:01 04/30/18 07:00 04/30/18 07:01 Temperature Pulse Rate 115 H 115 H 115 H Respiratory Rate 21 24 25 H Blood Pressure 138/64 140/62 140/62 Pulse Oximetry 92 L 94 L 96 04/30/18 08:00 04/30/18 08:01 04/30/18 09:00 Temperature 99.6 F Pulse Rate 115 H 114 H 112 H Respiratory Rate 16 19 13 Blood Pressure 138/63 138/63 133/61 Pulse Oximetry 97 100 93 L 04/30/18 09:01 04/30/18 10:00 04/30/18 10:01 Temperature Pulse Rate 113 H 107 H 108 H Respiratory Rate 12 16 15 Blood Pressure 133/61 131/58 L 131/58 L Pulse Oximetry 93 L 95 95 04/30/18 11:00 04/30/18 12:00 04/30/18 12:11 Temperature 99.4 F Pulse Rate 116 H 113 H 114 H Respiratory Rate 16 16 16 Blood Pressure 135/62 142/62 H Pulse Oximetry 92 L 91 L Intake & Output 04/29/18 04/30/18 04/30/18 18:59 06:59 18:59 Intake Total 1250 / 1250 2311 / 2311 350 / 350 Output Total 700 / 700 1000 / 1000 Balance 550 / 550 1311 / 1311 350 / 350 Weight 182.5 kg Intake: IV 1250 / 1250 1850 / 1850 350 / 350 Precedex Inj 200 MCG In NS Inj 50 / 50 48 ML @ 0.2 MCG/KG/HR 9.01 mls/ hr IV.CONT TITRATE PRN Rx#: [id number] Diprivan 1000 mg/100 ml Inj 1, 400 / 400 100 / 100 000 mg In 100 ml @ 5 MCG/KG/MIN 4.77 mls/hr IV.CONT TITRATE PRN Rx#:[id number] NS Inj 1,000 ML @ 84 mls/hr IV. 1000 / 1000 1000 / 1000 CONT .[id number] [facility] Rx#: [id number] Zosyn 4.5 GM Premix 4.5 gm In 200 / 200 200 / 200 100 ml @ 200 mls/hr IV.SIG Q6H [facility] Rx#:[id number] fentaNYL 10 mcg/mL Premix Drip 250 / 250 250 / 250 2,500 mcg In 250 ml @ 50 MCG/HR 5 mls/hr IV.SIG TITRATE PRN Rx #:[id number] Tube Feeding 361 / 361 Water Bolus Amount 100 / 100 Output: Urine Amount (Catheter) 700 / 700 1000 / 1000 Straight 700 / 700 1000 / 1000 Other: # Bowel Movements 0 Result Diagrams: 04/30/18 03:30 04/30/18 03:30 Other Results: Microbiology 04/27/18 11:55 Blood - Line Aerobic Blood Culture - Preliminary No growth in 3 days 04/27/18 11:55 Blood - Line Anaerobic Blood Culture - Preliminary No growth in 3 days 04/27/18 12:00 Blood - Line Aerobic Blood Culture - Preliminary No growth in 3 days 04/27/18 12:00 Blood - Line Anaerobic Blood Culture - Preliminary No growth in 3 days 04/27/18 14:30 Sputum - Oral Tracheal Aspirate Gram Stain - Final 04/27/18 14:30 Sputum - Oral Tracheal Aspirate Sputum Culture - Final Beta Strep not group A Staphylococcus aureus Imaging: Chest X-Ray 04/27/18 11:31 CONCLUSION: ETT in good position. Cardiomegaly with moderate interstitial edema. Head CT 04/27/18 11:31 CONCLUSION: 1. Negative CT Head non contrast. . Abdomen/Pelvis CT 04/27/18 11:35 CONCLUSION: 1. Extensive atelectasis in both lower lobes. 2. The Stone catheter needs to be deflated and advanced into the bladder. The catheter is at the level of the prosthetic urethra. 3. No findings to indicate a bowel obstruction are seen. No free air free fluid is identified. Chest CT 04/27/18 11:35 CONCLUSION: 1. Consolidation both posterior lungs with air bronchograms. This could represent bilateral pneumonia or aspiration. Cervical Spine CT 04/27/18 11:36 CONCLUSION: 1. Negative trauma study. Lumbar Spine CT 04/27/18 11:59 CONCLUSION: 1. Negative for acute process 2. There is no evidence for vertebral compression. Chest X-Ray 04/27/18 12:01 CONCLUSION: ETT in good position. Increasing interstitial edema. Chest X-Ray 04/27/18 16:04 CONCLUSION: 1. Double placement of left internal jugular central venous line with no visualized pneumothorax on the supine study. 2. The patient remains intubated and there are alveolar opacities greatest in the right lung. Chest X-Ray 04/28/18 15:23 CONCLUSION: 1. Worsening perihilar and bibasilar opacities most characteristic of pulmonary edema. 2. Blunting of the costophrenic angles consistent with effusions. 3. Cardiomegaly. 4. Placement of nasogastric tube which is not well visualized. Chest X-Ray 04/29/18 04:00 CONCLUSION: Right greater than left parenchymal opacities, intervally worse on the right and improved on the left. Head MRI 04/29/18 07:05 CONCLUSION: 1. Negative MRI of the brain. 2. Inflammatory process cannot be entirely excluded. 3. There are no infarcts identified. Chest X-Ray 04/30/18 06:00 CONCLUSION: No significant change right greater than left basilar consolidation and pleural effusions. Objective Remarks: GENERAL: Patient is 22 yo intubated . SKIN: Warm and dry. No rash HEAD: Normocephalic. EYES: No scleral icterus. No injection or drainage. NECK: Supple, trachea midline. No JVD or lymphadenopathy. CARDIOVASCULAR: Regular rate and rhythm without murmurs, gallops, or rubs. RESPIRATORY: Breath sounds equal bilaterally. No accessory muscle use. GASTROINTESTINAL: Abdomen soft, non-tender, nondistended. MUSCULOSKELETAL: No significant peripheral edema. Neuro: intubated, corneal reflex intact. Positive gag and cough. Withdraws to pain all 4 extremities. Currently arousable but not following commands and moves all 4 extremities spontaneously Assessment and Plan - Assessment and Plan Plan: NEURO/PSYCH: Acute metabolic encephalopathy Suspected PCP overdose Suspected ethylene glycol overdose Suicide attempt -PCP was found near the patient ,continue supportive care -Started on dexmedetomidine drip currently 0.5 mcg/kg/hr for sedation -monitor neuro status -Patient had a bicarb of 26, osmolar gap is only 13, this makes ethylene glycol toxicity unlikely -Urine drug screen positive for benzos only -Psychiatric consult after neurological recovery -CT of the head negative. MRI of brain negative. Cannot rule out inflammatory process -Check EEG 04/30 and follow-up EEG 04/28 with no epileptic activity -Ammonia level: 21 -Neuro eval RESP: Acute respiratory failure Bibasilar aspiration pneumonitis -Continue with vent support keep sats >92% PRVC +10 at 75% -Ventilator bundle. Decrease FIO2: To keep saturations greater than equal to 90% -Albuterol/ipratropium aerosols every 4 hours with albuterol aerosols every 2 hours as needed dyspnea -SBT when appropriate CV: Hypotension Lactic acidosis -Off norepinephrine monitor HR and BP keep MAP>65mmHg -Normal saline IV fluids at 84 ml per hour. Discontinue 04/30 -Lactic acid 1.7 GI: - IV famotidine -Start tube feeds Jevity 1.5with goal rate 75ml/hr with free water flushes 200 cc every 6 hours Docusate serum/senna 1 tablet twice daily for bowel regimen. Lactulose 30 cc twice daily and MiraLAX 17 g twice daily. Renal/FEN/: -Monitor renal function, I/O's, electrolytes replacement as needed -CT abd/pelvis: No findings to indicate a bowel obstruction are seen. No free air free fluid is identified. ID: MSSA/group A beta strep pneumonia Continue with piperacillin/tazobactam and monitor for signs of infections ( Fever, WBC) Follow up on blood no growth and sputum cxs. Staph aureus/MSSA and group A beta strep HEME: Normocytic anemia Leukocytosis -Monitor CBC, coags ENDO/FEN: Hyperglycemia Hypernatremia -Electrolyte replacement per protocol -Sliding scale insulin PROPH: -Bilateral lower extremity SCDs. Subcu heparin/famotidine LINES: -Utilize peripheral IVs, [facility] central line placed in ED 04/27 CC time 35 min
[2018-04-30] MEDS ORDERED: Mineral Oil Liq 30 ML UDC PO ONE (14:00)
--- NOTE | 2018-04-30 14:47 | MG ---
cc: Gaby Jade MD EEG NUMBER: [id number] REFERRING PHYSICIAN: Dr Parker Room 523 with photic done, 250 mcg of fentanyl and 20 mcg of Diprivan on board, intubated. Deep tactile stimulation given in all 4 extremities, which showed bilateral uppers not lowers, found unresponsive on the floor, given Narcan. This is a followup EEG. Currently on pressors, antibiotics and sedation as stated. DESCRIPTION OF RECORD: Overall slowing of background between 2 Hospital predominantly. EKG does look sinus. Photic stimulation is performed without any significant driving response. Right foot stimulation, there was some withdrawal, but no overall change in the background just high amplitude delta waves between 1-2 Hz predominantly. IMPRESSION: Abnormal EEG due to moderate to severe slowing of the background consistent with encephalopathic process of various etiology. Clinical correlation. Gaby Jade MD DF/ct , 02:23 PM , 02:29 PM
[2018-04-30] MEDS: Polyethylene Glycol 3350 17 GM Packet PO SCH (20:41)
[2018-05-01] MEDS: Artificial Tears Opth Drops 15 ML Bottle EACH EYE SCH ×3 (00:15→15:03)
[2018-05-01] MEDS: Insulin NovoLOG Aspart Correctional Sugar Inj SQ SCH ×4 (00:16→18:41)
[2018-05-01] MEDS: Metoprolol Inj 5 MG/5 ML Vial IV.PUSH PRN ×3 (01:29→12:24)
[2018-05-01] MEDS: Piperacil/Tazo 4.5 GM Premix 4.5 GM/100 ML BAG IV.SIG SCH ×4 (02:58→21:36)
[2018-05-01] MEDS: Propofol 1000 mg/100 ml Inj 1,000 MG/100 ML BOTTLE IV.CONT PRN ×9 (03:26→22:53)
[2018-05-01] MEDS: Chlorhexidine Gluconate 2% 1 Pack (2 Cloths) TOPICAL SCH (04:25)
[2018-05-01] MEDS: Heparin - SQ 10,000 UNITS/ML Vial SQ SCH ×2 (06:14→17:21)
[2018-05-01] MEDS: fentaNYL 10 mcg/mL Premix Drip 2,500 MCG/250 ML BAG IV.SIG PRN ×2 (06:15→16:26)
[2018-05-01] MEDS: Polyethylene Glycol 3350 17 GM Packet PO SCH ×2 (08:10→21:36)
[2018-05-01] MEDS: Senna/Docusate Sodium 8.6/50 MG Tablet PO SCH ×2 (08:10→21:36)
[2018-05-01] MEDS: Pantoprazole Inj 40 MG Vial IV.PUSH SCH (08:10)
--- NOTE | 2018-05-01 08:38 | P.PNCC ---
Subjective Subjective Remarks/Hospital Course: Patient is approximately 22 years old male obese, was found on the floor by a family member, downtime is unknown. EMS was called, patient was given Narcan with no response, he was intubated on the scene, apparently GCS 3. Found bag of PCP next to the patient. Patient has history of psychiatric disorder ? bipolar disorder and I am told he has attempted suicide in the past. There is also mention about suspicion of ethylene glycol ingestion, but his serum osmolality is 307 his osmolar gap is only 13. Bicarb is 26, ethylene glycol seems unlikely. Ethanol was negative urine drug screen only positive for benzo. I evaluated the patient in the ICU at the [facility]. Patient had a CT of the head which was negative. Rest of the workup unremarkable except for bibasilar atelectasis/aspiration pneumonia. Patient's white count is elevated at 17.1, glucose is 232 lactic acid was 2.8. He received multiple fluid boluses. At this time he is not on any sedation but remains unresponsive no response to deep pain 04/28 Patient remains intubated off sedation unresponsive. Afebrile. 04/29: MRI of the brain revealed no acute intracranial findings. EEG to be performed tomorrow. More arousable and moves all 4 extremities but not following commands. Placed on dexamethasone E drip. 2 feeds will be restarted SUBJECTIVE: 04/30: T-max 101.4. Currently afebrile. No bowel movement since admission. Arousable and follows simple commands late last night but currently on sedation for agitation. Increased FiO2 noted. Will attempt to gently diurese and continue antibiotics for pansensitive staph aureus/group a beta strep sputum 04/30 Patient is sedated with Fentanyl, Diprivan and intubated. T:101.1 at 5am. Placed on APRV overnight. Objective Vital Signs / I&O: Vital Signs 04/30/18 09:00 04/30/18 09:01 04/30/18 10:00 Temperature Pulse Rate 112 H 113 H 107 H Respiratory Rate 13 12 16 Blood Pressure 133/61 133/61 131/58 L Pulse Oximetry 93 L 93 L 95 04/30/18 10:01 04/30/18 11:00 04/30/18 12:00 Temperature 99.4 F Pulse Rate 108 H 116 H 113 H Respiratory Rate 15 16 16 Blood Pressure 131/58 L 135/62 142/62 H Pulse Oximetry 95 92 L 91 L 04/30/18 12:11 04/30/18 13:00 04/30/18 13:01 Temperature Pulse Rate 114 H 120 H 116 H Respiratory Rate 16 19 16 Blood Pressure 144/69 H 144/69 H Pulse Oximetry 92 L 94 L 04/30/18 14:00 04/30/18 14:01 04/30/18 15:00 Temperature Pulse Rate 117 H 117 H 117 H Respiratory Rate 16 14 16 Blood Pressure 141/65 H 141/65 H 141/72 H Pulse Oximetry 94 L 95 96 04/30/18 15:01 04/30/18 15:46 04/30/18 15:49 Temperature Pulse Rate 116 H 113 H Respiratory Rate 16 16 16 Blood Pressure 141/72 H Pulse Oximetry 97 95 04/30/18 16:00 04/30/18 16:01 04/30/18 17:00 Temperature 99.4 F Pulse Rate 118 H 121 H 112 H Respiratory Rate 17 22 16 Blood Pressure 139/63 Pulse Oximetry 95 97 96 04/30/18 17:03 04/30/18 18:00 04/30/18 19:00 Temperature Pulse Rate 112 H 121 H 113 H Respiratory Rate 16 26 H 87 H Blood Pressure 131/60 136/63 Pulse Oximetry 96 90 L 93 L 04/30/18 19:01 04/30/18 20:00 04/30/18 21:00 Temperature 100.5 F H Pulse Rate 114 H 117 H 130 H Respiratory Rate 58 H 16 13 Blood Pressure 127/58 L 134/63 143/65 H Pulse Oximetry 94 L 92 L 93 L 04/30/18 22:00 04/30/18 22:01 04/30/18 23:00 Temperature Pulse Rate 129 H 128 H 118 H Respiratory Rate 19 17 16 Blood Pressure 147/63 H Pulse Oximetry 93 L 93 L 96 04/30/18 23:01 04/30/18 23:03 05/01/18 00:00 Temperature 101.4 F H Pulse Rate 119 H 132 H Respiratory Rate 16 16 21 Blood Pressure 143/63 H Pulse Oximetry 95 97 93 L 05/01/18 00:01 05/01/18 01:00 05/01/18 01:01 Temperature Pulse Rate 138 H 132 H 134 H Respiratory Rate 33 H 16 14 Blood Pressure 136/63 149/68 H Pulse Oximetry 94 L 89 L 91 L 05/01/18 02:00 05/01/18 02:01 05/01/18 03:00 Temperature Pulse Rate 123 H 125 H 127 H Respiratory Rate 28 H 34 H 23 Blood Pressure 149/65 H 154/70 H Pulse Oximetry 91 L 91 L 90 L 05/01/18 03:01 05/01/18 03:15 05/01/18 04:00 Temperature Pulse Rate 124 H 112 H Respiratory Rate 21 22 15 Blood Pressure 154/70 H Pulse Oximetry 91 L 91 L 92 L 05/01/18 04:01 05/01/18 05:00 05/01/18 05:01 Temperature 101.1 F H Pulse Rate 110 H 106 H 105 H Respiratory Rate 11 L 11 L 11 L Blood Pressure 139/62 135/60 135/60 Pulse Oximetry 91 L 92 L 92 L 05/01/18 06:00 05/01/18 07:47 Temperature Pulse Rate 106 H 110 H Respiratory Rate 11 L 36 H Blood Pressure 137/63 Pulse Oximetry 93 L 94 L Intake & Output 04/30/18 05/01/18 05/01/18 18:59 06:59 18:59 Intake Total 1720 / 1720 2594 / 2594 Output Total 1700 / 1700 2250 / 2250 Balance 344 / 344 Weight 181 kg Intake: IV 888 / 888 1544 / 1544 Precedex Inj 200 MCG In NS Inj 48 ML @ 0.2 MCG/KG/HR 9.01 mls/ hr IV.CONT TITRATE PRN Rx#: [id number] Levophed Inj 16 MG In NS Inj 0 / 0 234 ML @ 2 MCG/MIN 1.87 mls/hr IV.CONT TITRATE PRN Rx#: [id number] Diprivan 1000 mg/100 ml Inj 1, 262 / 262 176 / 176 000 mg In 100 ml @ 5 MCG/KG/MIN 4.77 mls/hr IV.CONT TITRATE PRN Rx#:[id number] NS Inj 1,000 ML @ 84 mls/hr IV. 1000 / 1000 CONT .[id number] [facility] Rx#: [id number] Zosyn 4.5 GM Premix 4.5 gm In 200 / 200 200 / 200 100 ml @ 200 mls/hr IV.SIG Q6H [facility] Rx#:[id number] fentaNYL 10 mcg/mL Premix Drip 426 / 426 148 / 148 2,500 mcg In 250 ml @ 50 MCG/HR 5 mls/hr IV.SIG TITRATE PRN Rx #:[id number] Oral 0 / 0 0 / 0 Tube Feeding 632 / 632 650 / 650 Water Bolus Amount 200 / 200 400 / 400 Output: Urine Amount (Catheter) 1700 / 1700 2250 / 2250 Indwelling Urethral Catheter 1700 / 1700 2250 / 2250 Other: # Bowel Movements 0 0 Result Diagrams: 04/30/18 03:30 04/30/18 03:30 Other Results: Laboratory Results - last 12 hr 05/01/18 05/01/18 00:14 06:29 POC Glucose 170 H 103 Imaging: Head CT 04/27/18 11:31 CONCLUSION: 1. Negative CT Head non contrast. . Abdomen/Pelvis CT 04/27/18 11:35 CONCLUSION: 1. Extensive atelectasis in both lower lobes. 2. The Stone catheter needs to be deflated and advanced into the bladder. The catheter is at the level of the prosthetic urethra. 3. No findings to indicate a bowel obstruction are seen. No free air free fluid is identified. Chest CT 04/27/18 11:35 CONCLUSION: 1. Consolidation both posterior lungs with air bronchograms. This could represent bilateral pneumonia or aspiration. Cervical Spine CT 04/27/18 11:36 CONCLUSION: 1. Negative trauma study. Lumbar Spine CT 04/27/18 11:59 CONCLUSION: 1. Negative for acute process 2. There is no evidence for vertebral compression. Head MRI 04/29/18 07:05 CONCLUSION: 1. Negative MRI of the brain. 2. Inflammatory process cannot be entirely excluded. 3. There are no infarcts identified. Chest X-Ray 04/30/18 06:00 CONCLUSION: No significant change right greater than left basilar consolidation and pleural effusions. Objective Remarks: GENERAL: Patient is 22 yo intubated . SKIN: Warm and dry. No rash HEAD: Normocephalic. EYES: No scleral icterus. No injection or drainage. NECK: Supple, trachea midline. No JVD or lymphadenopathy. CARDIOVASCULAR: Regular rate and rhythm without murmurs, gallops, or rubs. RESPIRATORY: Breath sounds equal bilaterally. No accessory muscle use. GASTROINTESTINAL: Abdomen soft, non-tender, nondistended. MUSCULOSKELETAL: No significant peripheral edema. Neuro: intubated, corneal reflex intact. Positive gag and cough. Withdraws to pain all 4 extremities. Currently arousable but not following commands and moves all 4 extremities spontaneously Assessment and Plan - Assessment and Plan Plan: NEURO/PSYCH: Acute metabolic encephalopathy Suspected PCP overdose Suspected ethylene glycol overdose Suicide attempt -PCP was found near the patient ,continue supportive care -On Diprivan and Fentanyl infusion for sedation. -monitor neuro status. Daily sedation vacation -Patient had a bicarb of 26, osmolar gap is only 13, this makes ethylene glycol toxicity unlikely -Urine drug screen positive for benzos only -Psychiatric consult after neurological recovery -CT of the head negative. MRI of brain negative. Cannot rule out inflammatory process - EEG 04/30 and follow-up EEG 04/28 with no epileptic activity -Ammonia level: 21 -Neuro is following- Dr. Landon RESP: Acute respiratory failure Bibasilar aspiration pneumonitis -Continue with vent support keep sats >92% -Ventilator bundle. -Albuterol/ipratropium aerosols every 4 hours with albuterol aerosols every 2 hours as needed dyspnea -SBT when appropriate CV: Hypotension Lactic acidosis -Monitor HR and BP keep MAP>65mmHg -Lactic acid 1.7 GI: - IV famotidine -On tube feeds Jevity 1.5with goal rate 75ml/hr with free water flushes 100 cc every 6 hours Docusate serum/senna 1 tablet twice daily for bowel regimen. Lactulose 30 cc twice daily and MiraLAX 17 g twice daily. Renal/FEN/: -Monitor renal function, I/O's, electrolytes replacement as needed -CT abd/pelvis: No findings to indicate a bowel obstruction are seen. No free air free fluid is identified. -Diurese with Lasix 40mg x1 ID: MSSA/group A beta strep pneumonia Continue with piperacillin/tazobactam and monitor for signs of infections ( Fever, WBC) Follow up on blood no growth and sputum cxs. Staph aureus/MSSA and group A beta strep HEME: Normocytic anemia Leukocytosis -Monitor CBC, coags ENDO/FEN: Hyperglycemia Hypernatremia -Electrolyte replacement per protocol -Sliding scale insulin PROPH: -Bilateral lower extremity SCDs. Subcu heparin/famotidine LINES: -Utilize peripheral IVs, [facility] central line placed in ED 04/27 CC time 35 min
[2018-05-01 08:59] LABS: Hematocrit 33.4 % (39.0-51.0); Hemoglobin 10.8 gm/dL (13.0-17.0); Mean Corpuscular HGB Conc 32.3 % (32.0-36.0); Mean Corpuscular Hemoglobin 29.8 pg (27.0-34.0); Mean Corpuscular Volume 92.2 fL (80.0-100.0); Platelet Count 258 th/mm3 (150-450); Red Blood Count 3.62 mil/mm3 (4.50-5.90); White Blood Count 14.4 th/mm3 (4.0-11.0)
[2018-05-01 09:18] LABS: Alanine Aminotransferase 42 U/L (9-52); Albumin 2.5 g/dL (3.4-5.0); Anion Gap 6 meq/L (5-15); Aspartate Aminotransferase 83 U/L (15-39); Blood Urea Nitrogen 18 mg/dL (7-18); Calcium 8.1 mg/dL (8.5-10.1); Carbon Dioxide 28.7 meq/L (21.0-32.0); Chloride 112 meq/L (98-107); Glomerular Filtration Rate Greater Than 89 mL/min (>89); Glucose,Random 128 mg/dL (74-106); Magnesium 2.4 mg/dL (1.5-2.5); Potassium 3.3 meq/L (3.5-5.1); Sodium 147 meq/L (136-145)
[2018-05-01 09:20] LABS: Alkaline Phosphatase 71 U/L (45-117); Total Protein 6.8 g/dL (6.4-8.2)
[2018-05-01] MEDS: Potassium Chlor 40 mEq Premix 40 MEQ/100 ML PIGGYBACK IV.SIG PRN ×2 (09:34→21:37)
[2018-05-01] MEDS: Metoprolol Tartrate 50 MG Tablet PO SCH ×2 (15:03→21:36)
--- NOTE | 2018-05-01 15:09 | XR ---
EXAM DATE: 05/01/2018 3:03 PM EDT AGE/SEX: 22 years / Male INDICATIONS: Shortness of breath. CLINICAL DATA: This is the patient's subsequent encounter. Patient reports that signs and symptoms h ave been present for 4 - 6 days and indicates a pain score of Nonresponsive. MEDICAL/SURGICAL HISTORY: None. . Tonsillectomy. COMPARISON: [facility], CHEST 1V SINGLE AP, 04/30/2018. . FINDINGS: ET tube, nasogastric tube, central venous catheter in good position. The heart is enlarged. Moderate interstitial edema is present. CONCLUSION: Support apparatus in good position. Stable chest. Electronically signed by: Zay Gaspar MD 05/01/2018 3:08 PM EDT
[2018-05-01] MEDS ORDERED: RESP: Acetylcysteine 10% 4 ML Neb NEB SCH (16:00)
[2018-05-02] MEDS: fentaNYL 10 mcg/mL Premix Drip 2,500 MCG/250 ML BAG IV.SIG PRN ×3 (00:49→19:17)
[2018-05-02] MEDS: Propofol 1000 mg/100 ml Inj 1,000 MG/100 ML BOTTLE IV.CONT PRN ×11 (00:49→22:47)
[2018-05-02] MEDS: Potassium Chlor 40 mEq Premix 40 MEQ/100 ML PIGGYBACK IV.SIG PRN ×3 (01:02→12:42)
[2018-05-02] MEDS: Artificial Tears Opth Drops 15 ML Bottle EACH EYE SCH ×3 (01:22→16:04)
[2018-05-02] MEDS: Insulin NovoLOG Aspart Correctional Sugar Inj SQ SCH ×4 (01:22→19:05)
[2018-05-02] MEDS: Heparin - SQ 10,000 UNITS/ML Vial SQ SCH ×2 (05:11→17:56)
[2018-05-02] MEDS: Chlorhexidine Gluconate 2% 1 Pack (2 Cloths) TOPICAL SCH (05:11)
[2018-05-02] MEDS: Piperacil/Tazo 4.5 GM Premix 4.5 GM/100 ML BAG IV.SIG SCH ×4 (05:18→21:40)
[2018-05-02 05:31] LABS: Baso % (Auto) 0.2 % (0.0-2.0); Eos # (Auto) 0.4 th/mm3 (0.0-0.4); Eos % (Auto) 3.4 % (0.0-4.0); Hemoglobin 10.5 gm/dL (13.0-17.0); Lymph # (Auto) 1.6 th/mm3 (1.0-4.8); Lymph % (Auto) 12.5 % (9.0-44.0); Mean Corpuscular HGB Conc 33.8 % (32.0-36.0); Mean Corpuscular Hemoglobin 29.8 pg (27.0-34.0); Mean Corpuscular Volume 88.3 fL (80.0-100.0); Mean Platelet Volume 7.5 fL (7.0-11.0); Mono # (Auto) 1.1 th/mm3 (0.0-0.9); Mono % (Auto) 8.3 % (0.0-8.0); Neut # (Auto) 9.8 th/mm3 (1.8-7.7); Neut % (Auto) 75.6 % (16.0-70.0); Platelet Count 250 th/mm3 (150-450); Red Blood Count 3.51 mil/mm3 (4.50-5.90); Red Cell Distribution Width 15.4 % (11.6-17.2)
[2018-05-02 05:55] LABS: Albumin 2.3 g/dL (3.4-5.0); Anion Gap 8 meq/L (5-15); Aspartate Aminotransferase 132 U/L (15-39); Blood Urea Nitrogen 20 mg/dL (7-18); Calcium 8.1 mg/dL (8.5-10.1); Carbon Dioxide 27.6 meq/L (21.0-32.0); Chloride 112 meq/L (98-107); Glomerular Filtration Rate Greater Than 89 mL/min (>89); Glucose,Random 123 mg/dL (74-106); Magnesium 2.3 mg/dL (1.5-2.5); Potassium 3.2 meq/L (3.5-5.1); Sodium 148 meq/L (136-145)
[2018-05-02 05:56] LABS: Alanine Aminotransferase 60 U/L (9-52); Phosphorus 2.8 mg/dL (2.5-4.9)
[2018-05-02 05:58] LABS: Alkaline Phosphatase 125 U/L (45-117); Total Protein 6.5 g/dL (6.4-8.2)
--- NOTE | 2018-05-02 06:45 | P.PNCC ---
Subjective Subjective Remarks/Hospital Course: Patient is approximately 22 years old male obese, was found on the floor by a family member, downtime is unknown. EMS was called, patient was given Narcan with no response, he was intubated on the scene, apparently GCS 3. Found bag of PCP next to the patient. Patient has history of psychiatric disorder ? bipolar disorder and I am told he has attempted suicide in the past. There is also mention about suspicion of ethylene glycol ingestion, but his serum osmolality is 307 his osmolar gap is only 13. Bicarb is 26, ethylene glycol seems unlikely. Ethanol was negative urine drug screen only positive for benzo. I evaluated the patient in the ICU at the [facility]. Patient had a CT of the head which was negative. Rest of the workup unremarkable except for bibasilar atelectasis/aspiration pneumonia. Patient's white count is elevated at 17.1, glucose is 232 lactic acid was 2.8. He received multiple fluid boluses. At this time he is not on any sedation but remains unresponsive no response to deep pain 04/28 Patient remains intubated off sedation unresponsive. Afebrile. 04/29: MRI of the brain revealed no acute intracranial findings. EEG to be performed tomorrow. More arousable and moves all 4 extremities but not following commands. Placed on dexamethasone E drip. 2 feeds will be restarted SUBJECTIVE: 04/30: T-max 101.4. Currently afebrile. No bowel movement since admission. Arousable and follows simple commands late last night but currently on sedation for agitation. Increased FiO2 noted. Will attempt to gently diurese and continue antibiotics for pansensitive staph aureus/group a beta strep sputum 05/01 Patient is sedated with Fentanyl, Diprivan and intubated. T:101.1 at 5am. Placed on APRV overnight. 05/02 Patient is sedated with Diprivan and Fentanyl drips. Tmax 101.3, on PC/AC with PEEP:12, FIO2 80%, IP:30 Objective Vital Signs / I&O: Vital Signs 05/01/18 07:00 05/01/18 07:47 05/01/18 08:00 Temperature 100.2 F H Pulse Rate 101 H 110 H 108 H Respiratory Rate 11 L 36 H 11 L Blood Pressure 141/65 H 146/66 H Pulse Oximetry 94 L 94 L 94 L 05/01/18 09:00 05/01/18 09:01 05/01/18 10:00 Temperature Pulse Rate 107 H 106 H 115 H Respiratory Rate 28 H 28 H 28 H Blood Pressure 145/63 H 152/68 H Pulse Oximetry 94 L 94 L 95 05/01/18 11:00 05/01/18 11:01 05/01/18 11:52 Temperature Pulse Rate 119 H 118 H 121 H Respiratory Rate 11 L 11 L 22 Blood Pressure 146/63 H 146/63 H Pulse Oximetry 93 L 93 L 94 L 05/01/18 12:00 05/01/18 13:00 05/01/18 13:01 Temperature 100.9 F H Pulse Rate 132 H 127 H 127 H Respiratory Rate 23 30 H 28 H Blood Pressure 151/67 H 147/65 H Pulse Oximetry 93 L 91 L 91 L 05/01/18 14:00 05/01/18 14:01 05/01/18 15:00 Temperature 101.3 F H Pulse Rate 126 H 125 H 133 H Respiratory Rate 41 H 37 H 25 H Blood Pressure 148/64 H Pulse Oximetry 90 L 90 L 88 L 05/01/18 15:01 05/01/18 16:00 05/01/18 16:01 Temperature Pulse Rate 135 H 97 H 96 H Respiratory Rate 25 H 0 L 2 L Blood Pressure 148/65 H 114/55 L Pulse Oximetry 88 L 94 L 95 05/01/18 17:00 05/01/18 17:01 05/01/18 18:00 Temperature Pulse Rate 99 H 99 H 93 H Respiratory Rate 16 12 16 Blood Pressure 116/56 L 116/56 L Pulse Oximetry 97 97 98 05/01/18 18:01 05/01/18 19:00 05/01/18 19:56 Temperature Pulse Rate 94 H 103 H 103 H Respiratory Rate 16 16 16 Blood Pressure 110/55 L 113/60 Pulse Oximetry 99 96 94 L 05/01/18 20:00 05/01/18 21:00 05/01/18 22:00 Temperature Pulse Rate 103 H 99 H 84 Respiratory Rate 16 16 16 Blood Pressure 119/62 124/60 122/59 L Pulse Oximetry 95 96 97 05/01/18 23:00 05/01/18 23:40 05/02/18 00:00 Temperature 100.9 F H Pulse Rate 92 H 91 H 88 Respiratory Rate 16 16 16 Blood Pressure 126/61 124/59 L Pulse Oximetry 98 99 05/02/18 01:00 05/02/18 03:18 Temperature Pulse Rate 96 H 102 H Respiratory Rate 16 16 Blood Pressure 129/63 Pulse Oximetry 98 97 Intake & Output 05/01/18 05/01/18 05/02/18 06:59 18:59 06:59 Intake Total 2594 / 2594 2520 / 2520 950 / 950 Output Total 2250 / 2250 3625 / 3625 Balance 344 / 344 -1105 / -1105 950 / 950 Weight 181 kg Intake: IV 1544 / 1544 1150 / 1150 950 / 950 Precedex Inj 200 MCG In NS Inj 20 / 20 48 ML @ 0.2 MCG/KG/HR 9.01 mls/ hr IV.CONT TITRATE PRN Rx#: [id number] Levophed Inj 16 MG In NS Inj 0 / 0 234 ML @ 2 MCG/MIN 1.87 mls/hr IV.CONT TITRATE PRN Rx#: [id number] Diprivan 1000 mg/100 ml Inj 1, 176 / 176 600 / 600 500 / 500 000 mg In 100 ml @ 5 MCG/KG/MIN 4.77 mls/hr IV.CONT TITRATE PRN Rx#:[id number] NS Inj 1,000 ML @ 84 mls/hr IV. 1000 / 1000 CONT .[id number] [facility] Rx#: [id number] Zosyn 4.5 GM Premix 4.5 gm In 200 / 200 200 / 200 100 / 100 100 ml @ 200 mls/hr IV.SIG Q6H [facility] Rx#:[id number] KCl 40 mEq Premix Inj 40 meq In 100 / 100 100 / 100 100 ml @ 25 mls/hr IV.SIG Q2H PRN Rx#:[id number] fentaNYL 10 mcg/mL Premix Drip 148 / 148 250 / 250 250 / 250 2,500 mcg In 250 ml @ 50 MCG/HR 5 mls/hr IV.SIG TITRATE PRN Rx #:[id number] Oral 0 / 0 Tube Feeding 650 / 650 970 / 970 Water Bolus Amount 400 / 400 400 / 400 Output: Urine Amount (Catheter) 2249 / 0 3625 / 3625 Indwelling Urethral Catheter 2249 / 2249 3625 / 3625 Other: # Bowel Movements 0 Result Diagrams: 05/02/18 05:00 05/02/18 05:00 Other Results: Laboratory Results - last 12 hr 05/01/18 05/02/18 05/02/18 18:00 00:17 05:00 WBC 13.0 H RBC 3.51 L Hgb 10.5 L Hct 31.0 L MCV 88.3 D MCH 29.8 MCHC 33.8 RDW 15.4 Plt Count 250 MPV 7.5 Neut % (Auto) 75.6 H Lymph % (Auto) 12.5 [place] % (Auto) 8.3 H Eos % (Auto) 3.4 Baso % (Auto) 0.2 Neut # (Auto) 9.8 H Lymph # (Auto) 1.6 [place] # (Auto) 1.1 H Eos # (Auto) 0.4 Baso # (Auto) 0.0 WBC Differential . Differential Comment Auto diff final Sodium Potassium 3.0 L Chloride Carbon Dioxide Anion Gap BUN Creatinine Estimated GFR POC Glucose 123 H Random Glucose Calcium Phosphorus Magnesium Total Bilirubin AST ALT Alkaline Phosphatase Total Protein Albumin 05/02/18 05/02/18 05:00 05:22 WBC RBC Hgb Hct MCV MCH MCHC RDW Plt Count MPV Neut % (Auto) Lymph % (Auto) [place] % (Auto) Eos % (Auto) Baso % (Auto) Neut # (Auto) Lymph # (Auto) [place] # (Auto) Eos # (Auto) Baso # (Auto) WBC Differential Differential Comment Sodium 148 H Potassium 3.2 L Chloride 112 H Carbon Dioxide 27.6 Anion Gap 8 BUN 20 H Creatinine 0.75 Estimated GFR Greater than 89 POC Glucose 109 Random Glucose 123 H Calcium 8.1 L Phosphorus 2.8 Magnesium 2.3 Total Bilirubin 0.4 AST 132 H ALT 60 H Alkaline Phosphatase 125 H Total Protein 6.5 Albumin 2.3 L Imaging: Head CT 04/27/18 11:31 CONCLUSION: 1. Negative CT Head non contrast. . Abdomen/Pelvis CT 04/27/18 11:35 CONCLUSION: 1. Extensive atelectasis in both lower lobes. 2. The Stone catheter needs to be deflated and advanced into the bladder. The catheter is at the level of the prosthetic urethra. 3. No findings to indicate a bowel obstruction are seen. No free air free fluid is identified. Chest CT 04/27/18 11:35 CONCLUSION: 1. Consolidation both posterior lungs with air bronchograms. This could represent bilateral pneumonia or aspiration. Cervical Spine CT 04/27/18 11:36 CONCLUSION: 1. Negative trauma study. Lumbar Spine CT 04/27/18 11:59 CONCLUSION: 1. Negative for acute process 2. There is no evidence for vertebral compression. Head MRI 04/29/18 07:05 CONCLUSION: 1. Negative MRI of the brain. 2. Inflammatory process cannot be entirely excluded. 3. There are no infarcts identified. Chest X-Ray 05/01/18 14:38 CONCLUSION: Support apparatus in good position. Stable chest. Objective Remarks: GENERAL: Patient is 22 yo intubated . SKIN: Warm and dry. No rash HEAD: Normocephalic. EYES: No scleral icterus. No injection or drainage. NECK: Supple, trachea midline. No JVD or lymphadenopathy. CARDIOVASCULAR: Regular rate and rhythm without murmurs, gallops, or rubs. RESPIRATORY: Breath sounds equal bilaterally. No accessory muscle use. GASTROINTESTINAL: Abdomen soft, non-tender, nondistended. MUSCULOSKELETAL: No significant peripheral edema. Neuro: intubated, corneal reflex intact. Positive gag and cough. Withdraws to pain all 4 extremities. Currently arousable but not following commands and moves all 4 extremities spontaneously Assessment and Plan - Assessment and Plan Plan: NEURO/PSYCH: Acute metabolic encephalopathy Suspected PCP overdose Suspected ethylene glycol overdose Suicide attempt -PCP was found near the patient ,continue supportive care -On Diprivan. Fentanyl infusion for sedation. Add Versed drip if needed for sedation and vent synchrony -monitor neuro status. Daily sedation vacation -Patient had a bicarb of 26, osmolar gap is only 13, this makes ethylene glycol toxicity unlikely -Urine drug screen positive for benzos only -Psychiatric consult after neurological recovery -CT of the head negative. MRI of brain negative. Cannot rule out inflammatory process - EEG 04/30 and follow-up EEG 04/28 with no epileptic activity -Ammonia level: 21 -Neuro is following- Dr. Landon RESP: Acute respiratory failure Bibasilar aspiration pneumonitis -Continue with vent support keep sats >92% -On PC/AC RR16, IP:30, IT:1.2, PEEP:14 and FIO2 80%. -Ventilator bundle. -Bronchodilators ( DuoNeb, Mucomyst nebs Q4) -SBT when appropriate CXR today showed diffuse b/l pulm infiltrates ddx fluid overload, ARDS Will start flolan nebs for refractory hypoxemia and start steroids- Solumederol 80mg IV Q8 Patient noted to have thick secretions with suctioning per RT, s/p bronch thick secretions suctioned to clear. No evidence of EBL or bleeding. CV: Hypotension Lactic acidosis -Monitor HR and BP keep MAP>65mmHg -Lactic acid 1.7 -On Lopressor 50mg BID GI: - IV famotidine -On tube feeds Jevity 1.5@75ml/hr Docusate serum/senna 1 tablet twice daily for bowel regimen. Lactulose 30 cc twice daily and MiraLAX 17 g twice daily. Change free water 250ml Q8 Renal/FEN/: -Monitor renal function, I/O's, electrolytes replacement as needed -CT abd/pelvis: No findings to indicate a bowel obstruction are seen. No free air free fluid is identified. -Diurese with Lasix 40mg IV Q12. Will need K replacement today ID: MSSA/group A beta strep pneumonia Continue with Zosyn and monitor for signs of infections ( Fever, WBC) Add Vanco Follow up on blood no growth and sputum cxs. Staph aureus/MSSA and group A beta strep ID eval HEME: Normocytic anemia Leukocytosis -Monitor CBC, coags ENDO/FEN: Hyperglycemia Hypernatremia -Electrolyte replacement per protocol -Sliding scale insulin PROPH: -Bilateral lower extremity SCDs. Subcu heparin/famotidine LINES: -Utilize peripheral IVs, [facility] central line placed in ED 04/27 CC time 35 min
[2018-05-02] MEDS ORDERED: Vancomycin Consult Pharmacy OTHER PRN (06:46)
[2018-05-02] MEDS ORDERED: Vancomycin Inj 1 GM/200 ML PIGGYBACK IV.SIG SCH (07:00)
[2018-05-02] MEDS: Midazolam 50 MG/50 ML Inj 50 MG/50 ML BAG IV.CONT PRN ×3 (07:22→19:26)
[2018-05-02] MEDS ORDERED: Midazolam Inj 5 MG/ML 1 ML Vial ONE (07:49)
[2018-05-02] MEDS ORDERED: VANCOMYCIN IV.SIG ONE (08:00)
[2018-05-02] MEDS ORDERED: SODIUM CHLOR 0.9% IV.SIG ONE (08:00)
[2018-05-02] MEDS: Polyethylene Glycol 3350 17 GM Packet PO SCH ×2 (08:41→21:39)
[2018-05-02] MEDS: Pantoprazole Inj 40 MG Vial IV.PUSH SCH (08:43)
[2018-05-02] MEDS: Senna/Docusate Sodium 8.6/50 MG Tablet PO SCH ×2 (08:44→21:39)
[2018-05-02] MEDS: Metoprolol Tartrate 50 MG Tablet PO SCH ×2 (08:44→21:40)
--- NOTE | 2018-05-02 17:11 | XR ---
EXAM DATE: 05/02/2018 5:08 PM EDT AGE/SEX: 22 years / Male INDICATIONS: Shortness of breath. CLINICAL DATA: This is the patient's subsequent encounter. Patient reports that signs and symptoms h ave been present for 4 - 6 days and indicates a pain score of Nonresponsive. MEDICAL/SURGICAL HISTORY: None. Tonsillectomy. [place] [facility] [place]. . FINDINGS: Right greater than left parenchymal opacities persist and are not significantly changed. Small, bilat eral pleural effusions are likely. No pneumothorax seen. Heart size stable, mildly enlarged. Endotracheal tube tip is 5.5 cm above the roque. Nasogastric tube courses into the stomach. There is a left internal jugular central venous catheter with tip in the superior vena cava. CONCLUSION: No significant change. Right greater than left consolidation and small effusions again noted. Electronically signed by: Alexis Wyatt MD 05/02/2018 5:10 PM EDT
[2018-05-02] MEDS ORDERED: MethylPREDNISolone Sod Succinate Inj 125 MG/2 ML Vial ONE (17:18)
[2018-05-02] MEDS: Vancomycin Inj 2,000 MG in Sodium Chlor 0.9% Inj 500 ML IV.SIG SCH (17:56)
[2018-05-02] MEDS: SODIUM CHLOR NEB SCH (18:05)
[2018-05-02] MEDS: EPOPROSTENOL NEB SCH (18:05)
[2018-05-02] MEDS: MethylPREDNISolone Sod Succinate Inj 40 MG/ML Vial IV.PUSH SCH (21:39)
[2018-05-03] MEDS: Propofol 1000 mg/100 ml Inj 1,000 MG/100 ML BOTTLE IV.CONT PRN ×9 (01:00→22:01)
[2018-05-03] MEDS: Insulin NovoLOG Aspart Correctional Sugar Inj SQ SCH ×5 (01:19→18:24)
[2018-05-03] MEDS: Artificial Tears Opth Drops 15 ML Bottle EACH EYE SCH ×3 (01:19→15:30)
[2018-05-03] MEDS ORDERED: Pharmacy Ordered Lab Info OTHER ONE (01:45)
[2018-05-03] MEDS: Midazolam 50 MG/50 ML Inj 50 MG/50 ML BAG IV.CONT PRN ×4 (02:27→22:02)
[2018-05-03] MEDS: Vancomycin Inj 2,000 MG in Sodium Chlor 0.9% Inj 500 ML IV.SIG SCH ×3 (02:28→18:25)
[2018-05-03] MEDS: Piperacil/Tazo 4.5 GM Premix 4.5 GM/100 ML BAG IV.SIG SCH ×4 (03:50→20:23)
[2018-05-03] MEDS: fentaNYL 10 mcg/mL Premix Drip 2,500 MCG/250 ML BAG IV.SIG PRN ×3 (04:20→22:28)
[2018-05-03 04:55] LABS: Baso % (Auto) 0.3 % (0.0-2.0); Hematocrit 29.8 % (39.0-51.0); Hemoglobin 10.1 gm/dL (13.0-17.0); Lymph % (Auto) 9.4 % (9.0-44.0); Mean Corpuscular HGB Conc 33.8 % (32.0-36.0); Mean Corpuscular Hemoglobin 30.3 pg (27.0-34.0); Mean Corpuscular Volume 89.7 fL (80.0-100.0); Mean Platelet Volume 7.7 fL (7.0-11.0); Mono # (Auto) 0.3 th/mm3 (0.0-0.9); Mono % (Auto) 3.3 % (0.0-8.0); Platelet Count 261 th/mm3 (150-450); Red Blood Count 3.33 mil/mm3 (4.50-5.90); Red Cell Distribution Width 15.3 % (11.6-17.2); White Blood Count 10.3 th/mm3 (4.0-11.0)
[2018-05-03] MEDS: SODIUM CHLOR NEB SCH ×3 (05:07→18:24)
[2018-05-03] MEDS: EPOPROSTENOL NEB SCH ×3 (05:07→18:24)
[2018-05-03] MEDS: Heparin - SQ 10,000 UNITS/ML Vial SQ SCH ×2 (05:07→18:24)
[2018-05-03] MEDS: MethylPREDNISolone Sod Succinate Inj 40 MG/ML Vial IV.PUSH SCH ×3 (05:08→22:02)
[2018-05-03 05:20] LABS: Alanine Aminotransferase 61 U/L (9-52); Albumin 2.2 g/dL (3.4-5.0); Anion Gap 7 meq/L (5-15); Aspartate Aminotransferase 79 U/L (15-39); Blood Urea Nitrogen 24 mg/dL (7-18); Calcium 8.2 mg/dL (8.5-10.1); Carbon Dioxide 26.6 meq/L (21.0-32.0); Chloride 112 meq/L (98-107); Glomerular Filtration Rate Greater Than 89 mL/min (>89); Glucose,Random 209 mg/dL (74-106); Magnesium 2.3 mg/dL (1.5-2.5); Phosphorus 3.2 mg/dL (2.5-4.9); Potassium 3.7 meq/L (3.5-5.1); Sodium 146 meq/L (136-145)
[2018-05-03 05:22] LABS: Alkaline Phosphatase 110 U/L (45-117); Total Protein 6.7 g/dL (6.4-8.2)
--- NOTE | 2018-05-03 06:53 | P.PNCC ---
Subjective Subjective Remarks/Hospital Course: Patient is approximately 22 years old male obese, was found on the floor by a family member, downtime is unknown. EMS was called, patient was given Narcan with no response, he was intubated on the scene, apparently GCS 3. Found bag of PCP next to the patient. Patient has history of psychiatric disorder ? bipolar disorder and I am told he has attempted suicide in the past. There is also mention about suspicion of ethylene glycol ingestion, but his serum osmolality is 307 his osmolar gap is only 13. Bicarb is 26, ethylene glycol seems unlikely. Ethanol was negative urine drug screen only positive for benzo. I evaluated the patient in the ICU at the [facility]. Patient had a CT of the head which was negative. Rest of the workup unremarkable except for bibasilar atelectasis/aspiration pneumonia. Patient's white count is elevated at 17.1, glucose is 232 lactic acid was 2.8. He received multiple fluid boluses. At this time he is not on any sedation but remains unresponsive no response to deep pain 04/28 Patient remains intubated off sedation unresponsive. Afebrile. 04/29: MRI of the brain revealed no acute intracranial findings. EEG to be performed tomorrow. More arousable and moves all 4 extremities but not following commands. Placed on dexamethasone E drip. 2 feeds will be restarted SUBJECTIVE: 04/30: T-max 101.4. Currently afebrile. No bowel movement since admission. Arousable and follows simple commands late last night but currently on sedation for agitation. Increased FiO2 noted. Will attempt to gently diurese and continue antibiotics for pansensitive staph aureus/group a beta strep sputum 05/01 Patient is sedated with Fentanyl, Diprivan and intubated. T:101.1 at 5am. Placed on APRV overnight. 05/02 Patient is sedated with Diprivan and Fentanyl drips. Tmax 101.3, on PC/AC with PEEP:12, FIO2 80%, IP:30 05/03 Patient is heavily sedated with Diprivan, Fentanyl and Versed . On PC/AC with PEEP: 14 and FIO2 100$ sats 92%, CXR yesterday showed diffuse b/l pulm infiltrates started on Flolan nebs. Had Tmax 102.6 last night. Objective Vital Signs / I&O: Vital Signs 05/02/18 08:00 05/02/18 08:01 05/02/18 09:00 Temperature 99.1 F Pulse Rate 124 H 122 H 111 H Respiratory Rate 17 16 16 Blood Pressure 124/60 124/60 112/58 L Pulse Oximetry 92 L 92 L 95 05/02/18 09:59 05/02/18 10:00 05/02/18 10:58 Temperature Pulse Rate 104 H 100 H Respiratory Rate 16 16 16 Blood Pressure 104/60 Pulse Oximetry 96 96 05/02/18 11:00 05/02/18 12:00 05/02/18 13:00 Temperature 99 F Pulse Rate 100 H 100 H 100 H Respiratory Rate 16 16 13 Blood Pressure 108/58 L 100/58 L 104/57 L Pulse Oximetry 94 L 95 92 L 05/02/18 14:00 05/02/18 15:00 05/02/18 15:39 Temperature Pulse Rate 103 H 109 H 119 H Respiratory Rate 16 0 L 17 Blood Pressure 106/58 L 109/55 L Pulse Oximetry 95 93 L 89 L 05/02/18 16:00 05/02/18 17:36 05/02/18 20:00 Temperature 99.8 F H 102.6 F H Pulse Rate 118 H 133 H 124 H Respiratory Rate 16 18 16 Blood Pressure 111/60 117/59 L Pulse Oximetry 94 L 05/02/18 22:22 05/03/18 00:00 05/03/18 04:00 Temperature 101.1 F H 100.9 F H Pulse Rate 98 H 96 H 114 H Respiratory Rate 16 17 16 Blood Pressure 106/56 L 119/65 Pulse Oximetry 05/03/18 04:34 Temperature Pulse Rate 108 H Respiratory Rate 16 Blood Pressure Pulse Oximetry 94 L Intake & Output 05/02/18 05/02/18 05/03/18 06:59 18:59 05:59 Intake Total 1980 2210 / 2210 3397 / 2170 Output Total 1800 / 1800 2300 / 2300 Balance 181 / 181 -90 / -90 3397 / 2170 Weight 183.7 kg 184 kg Intake: IV 950 / 950 1200 / 1200 2170 / 2170 Versed Inj 50 mg In 50 ml @ 2 50 / 50 100 / 100 MG/HR 2 mls/hr IV.CONT TITRATE PRN Rx#:[id number] Diprivan 1000 mg/100 ml Inj 1, 500 / 500 500 / 500 500 / 500 000 mg In 100 ml @ 5 MCG/KG/MIN 4.77 mls/hr IV.CONT TITRATE PRN Rx#:[id number] Zosyn 4.5 GM Premix 4.5 gm In 100 / 100 200 / 200 100 / 100 100 ml @ 200 mls/hr IV.SIG Q6H [facility] Rx#:[id number] KCl 40 mEq Premix Inj 40 meq In 100 / 100 200 / 200 100 / 100 100 ml @ 25 mls/hr IV.SIG Q2H PRN Rx#:[id number] Vancomycin Inj 2,000 MG In NS 520 / 520 Inj 500 ML @ 250 mls/hr IV.SIG Q8H [facility] Rx#:[id number] fentaNYL 10 mcg/mL Premix Drip 250 / 250 250 / 250 500 / 500 2,500 mcg In 250 ml @ 50 MCG/HR 5 mls/hr IV.SIG TITRATE PRN Rx #:[id number] Flolan (30,000 ng/mL) Neb 90 ML 100 / 100 In NS Inj 10 ML @ 5 mls/hr NEB Q8H [facility] Rx#:[id number] Tube Feeding 831 / 831 950 / 950 727 Tube Irrigant 60 / 60 100 Water Bolus Amount 200 / 200 400 Output: Urine Amount (Catheter) 1800 / 1800 2300 / 2300 Indwelling Urethral Catheter 1800 / 1800 2300 / 2300 Other: Date of Last Bowel Movement 05/02/18 05/02/18 # Bowel Movements 0 2 Result Diagrams: 05/03/18 04:20 05/03/18 11:35 Other Results: Laboratory Results - last 12 hr 05/02/18 05/03/18 05/03/18 20:50 01:08 EST 01:45 EST WBC RBC Hgb Hct MCV MCH MCHC RDW Plt Count MPV Neut % (Auto) Lymph % (Auto) [place] % (Auto) Eos % (Auto) Baso % (Auto) Neut # (Auto) Lymph # (Auto) [place] # (Auto) Eos # (Auto) Baso # (Auto) WBC Differential Differential Comment Sodium Potassium 3.8 Chloride Carbon Dioxide Anion Gap BUN Creatinine Estimated GFR POC Glucose 134 H Random Glucose Calcium Phosphorus Magnesium Total Bilirubin AST ALT Alkaline Phosphatase Total Protein Albumin Vancomycin Trough 7.2 05/03/18 05/03/18 04:20 04:20 WBC 10.3 RBC 3.33 L Hgb 10.1 L Hct 29.8 L MCV 89.7 MCH 30.3 MCHC 33.8 RDW 15.3 Plt Count 261 MPV 7.7 Neut % (Auto) 87.0 H Lymph % (Auto) 9.4 [place] % (Auto) 3.3 Eos % (Auto) 0.0 Baso % (Auto) 0.3 Neut # (Auto) 9.0 H Lymph # (Auto) 1.0 [place] # (Auto) 0.3 Eos # (Auto) 0.0 Baso # (Auto) 0.0 WBC Differential . Differential Comment Auto diff final Sodium 146 H Potassium 3.7 Chloride 112 H Carbon Dioxide 26.6 Anion Gap 7 BUN 24 H Creatinine 0.81 Estimated GFR Greater than 89 POC Glucose Random Glucose 209 H Calcium 8.2 L Phosphorus 3.2 Magnesium 2.3 Total Bilirubin 0.4 AST 79 H ALT 61 H Alkaline Phosphatase 110 Total Protein 6.7 Albumin 2.2 L Vancomycin Trough Imaging: Head CT 04/27/18 11:31 CONCLUSION: 1. Negative CT Head non contrast. . Abdomen/Pelvis CT 04/27/18 11:35 CONCLUSION: 1. Extensive atelectasis in both lower lobes. 2. The Stone catheter needs to be deflated and advanced into the bladder. The catheter is at the level of the prosthetic urethra. 3. No findings to indicate a bowel obstruction are seen. No free air free fluid is identified. Chest CT 04/27/18 11:35 CONCLUSION: 1. Consolidation both posterior lungs with air bronchograms. This could represent bilateral pneumonia or aspiration. Cervical Spine CT 04/27/18 11:36 CONCLUSION: 1. Negative trauma study. Lumbar Spine CT 04/27/18 11:59 CONCLUSION: 1. Negative for acute process 2. There is no evidence for vertebral compression. Head MRI 04/29/18 07:05 CONCLUSION: 1. Negative MRI of the brain. 2. Inflammatory process cannot be entirely excluded. 3. There are no infarcts identified. Chest X-Ray 05/02/18 00:00 CONCLUSION: No significant change. Right greater than left consolidation and small effusions again noted. Objective Remarks: GENERAL: Patient is 22 yo intubated . SKIN: Warm and dry. No rash HEAD: Normocephalic. EYES: No scleral icterus. No injection or drainage. NECK: Supple, trachea midline. No JVD or lymphadenopathy. CARDIOVASCULAR: Regular rate and rhythm without murmurs, gallops, or rubs. RESPIRATORY: Breath sounds equal bilaterally. No accessory muscle use. GASTROINTESTINAL: Abdomen soft, non-tender, nondistended. MUSCULOSKELETAL: No significant peripheral edema. Neuro: intubated, sedated Assessment and Plan - Assessment and Plan Plan: NEURO/PSYCH: Acute metabolic encephalopathy Suspected PCP overdose Suspected ethylene glycol overdose Suicide attempt -PCP was found near the patient ,continue supportive care -On Diprivan. Versed and Fentanyl infusion for sedation and vent synchrony -monitor neuro status. Daily sedation vacation -Patient had a bicarb of 26, osmolar gap is only 13, this makes ethylene glycol toxicity unlikely -Urine drug screen positive for benzos only -Psychiatric consult after neurological recovery -CT of the head negative. MRI of brain negative. Cannot rule out inflammatory process - EEG 04/30 and follow-up EEG 04/28 with no epileptic activity -Ammonia level: 21 -Neuro is following- Dr. Landon RESP: Acute respiratory failure Bibasilar aspiration pneumonitis Severe ARDS -Continue with vent support keep sats >92% -On PC/AC RR16, IP:30, IT:1.2, PEEP:14 and FIO2 100%. -Ventilator bundle. -Bronchodilators ( DuoNeb, Mucomyst nebs Q4), Solumederol 80mg Q8 - Continue with Flolan nebs ( 50,000 ng/ml) CXR 05/02 showed diffuse b/l pulm infiltrates ddx fluid overload, ARDS Will start flolan nebs for refractory hypoxemia and start steroids- Solumederol 80mg IV Q8 s/p bronch 05/02 thick secretions suctioned to clear. No evidence of EBL or bleeding. Will place patient on rotoprone bed for prone position. Per rotoprone rep they had pts on rotoprone bed as much as 460lbs. Discussed with Dr. Luke who agreed to proceed with pronation. CV: Hypotension Lactic acidosis -Monitor HR and BP keep MAP>65mmHg -Lactic acid 1.7 -On Lopressor 50mg BID GI: - IV famotidine -On tube feeds Jevity 1.5@75ml/hr Docusate serum/senna 1 tablet twice daily for bowel regimen. Lactulose 30 cc twice daily and MiraLAX 17 g twice daily. free water 250ml Q8 Renal/FEN/: -Monitor renal function, I/O's, electrolytes replacement as needed -CT abd/pelvis: No findings to indicate a bowel obstruction are seen. No free air free fluid is identified. -Hold Lasix 40mg IV Q12, place on Bumex 1mg/hr ID: MSSA/group A beta strep pneumonia Continue with Zosyn, Vanco and monitor for signs of infections ( Fever, WBC) Follow up on blood no growth and sputum cxs. Staph aureus/MSSA and group A beta strep Check BC x 2 sets, follow up on BAL results ID eval HEME: Normocytic anemia Leukocytosis -Monitor CBC, coags ENDO/FEN: Hyperglycemia Hypernatremia -Electrolyte replacement per protocol -Sliding scale insulin PROPH: -Bilateral lower extremity SCDs. Subcu heparin/famotidine LINES: -Utilize peripheral IVs, [facility] central line placed in ED 04/27 CC time 40 min
[2018-05-03] MEDS ORDERED: Bumetanide Inj 25 MG/100 ML BAG IV.CONT SCH (07:15)
[2018-05-03] MEDS: Metoprolol Tartrate 50 MG Tablet PO SCH ×2 (08:30→20:23)
[2018-05-03] MEDS: Senna/Docusate Sodium 8.6/50 MG Tablet PO SCH ×2 (08:30→20:23)
[2018-05-03] MEDS: Pantoprazole Inj 40 MG Vial IV.PUSH SCH (08:31)
[2018-05-03] MEDS: Polyethylene Glycol 3350 17 GM Packet PO SCH ×2 (08:31→20:23)
[2018-05-03] MEDS: Cisatracurium Inj 100 MG in Sodium Chlor 0.9% Inj 240 ML IV.CONT PRN ×3 (15:01→22:02)
--- NOTE | 2018-05-03 19:00 | P.CONID ---
History of Present Illness Service: ID Consult date: 05/03/18 Requesting Physician: Mirta Steinberg Reason for Consult: Pneumonia, fever Primary Care Provider: Henrry Reyes MD Chief Complaint: Confusion History of Present Illness: pt unable to provide history history from the chart and father @ b/s 22 yo morbidly obese male with bipolar, major depressive disorder found down prone by his father unresponsive + some fevers, malaise few dauy prior but refused to go seek med attention On vent @ 100% + marked amopunt of paul to dark secretions Fever up to 102.6, WBC up to 13-14 K BAL with MSSA, beta strep not group A is sputum clx CXR with Right greater than left consolidation and small effusions again noted. Review of Systems unobtainable due to endotracheal tube, unobtainable due to mental status PMFSH - History History Provided By: Family Member - Medical History Medical History: Medical History (Last Reviewed 05/03/18 @ 18:56 by Sabine Wiley MD) Affective bipolar disorder - Surgical History Surgical History: Surgical History (Last Reviewed 05/03/18 @ 18:56 by Sabine Wiley MD) Hx of tonsillectomy - Family History Family History: Family History (Last Reviewed 05/03/18 @ 18:56 by Sabine Wiley MD) Other Family history normal - Social History I have reviewed the patient's Social History: Yes - Tobacco History Second Hand Smoke Exposure: No Tobacco Use In Past 30 Days: No Smoking Status: Never smoker Tobacco Type: E-Cigarettes - Alcohol History How Often Do You Have a Drink Containing Alcohol: Never - Substance Use History Substance History: Active Abuse - Travel History Recent Travel in the [place] Within the Last 8 Weeks: No Recent Travel Out of the Country Within the Last 8 Weeks: No - Immunization History Tetanus Immunization: Unsure Medications and Allergies Active Medications: Active Medications Acetaminophen (Tylenol Liq) 650 mg PO Q6H PRN PRN Reason: FEVER Last Admin: 05/03/18 14:56 Dose: 650 mg Acetylcysteine (Mucomyst 10% Neb) 2 ml NEB Q4HR NEB SUSAN Last Admin: 05/03/18 14:28 Dose: 2 ml Al Hydroxide/Mg Hydroxide (Milk Of Magnesia Liq) 30 ml PO Q12H PRN PRN Reason: Mild Constipation Albuterol (Albuterol Neb (Prn)) 2.5 mg NEB Q2HR NEB PRN PRN Reason: SHORTNESS OF BREATH/WHEEZING Albuterol (Duoneb Neb (Susan)) 1 ampul NEB Q4HR NEB [facility] Last Admin: 05/03/18 14:28 Dose: 1 ampul Artificial Tears (Tears Naturale Opth Drops) 1 drop EACH EYE Q8H SUSAN Last Admin: 05/03/18 15:30 Dose: 1 drop Bisacodyl (Dulcolax Supp) 10 mg RECTAL DAILY PRN PRN Reason: SEVERE CONSITIPATION Dextrose (D50w Vial) 50 ml IV.PUSH UNSCH PRN PRN Reason: PER HYPOGLYCEMIA PROTOCOL Furosemide (Lasix Inj) 40 mg IV.PUSH BID@0900,1800 [facility] Glucagon (Glucagon Inj) 1 mg OTHER PRN PRN PRN Reason: for Hypoglycemia Protocol Heparin Sodium (Porcine) (Heparin Inj) 5,000 units SQ Q12H [facility] Last Admin: 05/03/18 18:24 Dose: 5,000 units Magnesium Sulfate 4 gm/ Sodium (Chloride) 100 mls @ 50 mls/hr IV.SIG UNSCH PRN PRN Reason: For Magnesium 0.9 - 1.1 mg/dL Potassium Chloride (Kcl 40 Meq Premix Inj) 40 meq in 100 mls @ 25 mls/hr IV.SIG Q2H PRN PRN Reason: For Potassium 2.8 - 3.2 mEq/L Last Infusion: 05/02/18 22:49 Dose: Infused Potassium Chloride (Kcl 20 Meq Premix Inj) 20 meq in 100 mls @ 50 mls/hr IV.SIG Q2H PRN PRN Reason: For Potassium 3.3 - 3.5 mEq/L Potassium Chloride (Kcl 40 Meq Premix Inj) 40 meq in 100 mls @ 25 mls/hr IV.SIG UNSCH PRN PRN Reason: For Potassium 3.3 - 3.5 mEq/L Last Infusion: 05/01/18 17:09 Dose: Infused Potassium Chloride (Kcl 20 Meq Premix Inj) 20 meq in 100 mls @ 50 mls/hr IV.SIG Q2H PRN PRN Reason: For Potassium 2.8 - 3.2 mEq/L Potassium Phosphate 30 mmol/ (Sodium Chloride) 260 mls @ 42 mls/hr IV.SIG UNSCH PRN PRN Reason: SEE LABEL COMMENTS Magnesium Sulfate 2 gm/ Sodium (Chloride) 100 mls @ 50 mls/hr IV.SIG UNSCH PRN PRN Reason: For Magnesium 1.2 - 1.6 mg/dL Sodium Phosphate 30 mmol/ (Sodium Chloride) 260 mls @ 42 mls/hr IV.SIG UNSCH PRN PRN Reason: For Phosphorus < 2.5 mg/dL Propofol (Diprivan 1000 Mg/100 Ml Inj) 1,000 mg in 100 mls @ 4.77 mls/hr IV.CONT TITRATE PRN; Protocol PRN Reason: Per Protocol Last Admin: 05/03/18 13:34 Dose: 50 mcg/kg/min, 47.7 mls/hr Fentanyl (Fentanyl 10 Mcg/Ml Premix Drip) 2,500 mcg in 250 mls @ 5 mls/hr IV.SIG TITRATE PRN; Protocol PRN Reason: Per Protocol Last Admin: 05/03/18 13:34 Dose: 250 mcg/hr, 25 mls/hr Piperacillin/Tazobactam/Dextrose (Zosyn 4.5 Gm Premix) 4.5 gm in 100 mls @ 200 mls/hr IV.SIG Q6H [facility] Last Infusion: 05/03/18 15:01 Dose: Infused Vancomycin HCl 1,000 mg/ (Sodium Chloride) 250 mls @ 200 mls/hr 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 Dexmedetomidine HCl 200 mcg/ (Sodium Chloride) 50 mls @ 9.01 mls/hr IV.CONT TITRATE PRN; Protocol PRN Reason: Per Protocol Last Titration: 04/30/18 22:04 Dose: Infused Midazolam HCl (Versed Inj) 50 mg in 50 mls @ 2 mls/hr IV.CONT TITRATE PRN; Protocol PRN Reason: Per Protocol Last Admin: 05/03/18 10:33 Dose: 6 mg/hr, 6 mls/hr Vancomycin HCl 2,000 mg/ (Sodium Chloride) 520 mls @ 250 mls/hr IV.SIG Q8H [facility] Last Admin: 05/03/18 18:25 Dose: 250 mls/hr Epoprostenol Sodium 90 ml/ (Sodium Chloride) 100 mls @ 5 mls/hr NEB Q8H [facility] Last Admin: 05/03/18 18:24 Dose: 5 mls/hr Cisatracurium Besylate 100 mg/ (Sodium Chloride) 250 mls @ 27.6 mls/hr IV.CONT TITRATE PRN; Protocol PRN Reason: Per Protocol Last Titration: 05/03/18 15:01 Dose: 0 mcg/kg/min, 0 mls/hr Insulin Aspart (Novolog Insulin Correctional Sugar Inj) 0 unit SQ Q6HR [facility]; Protocol Last Admin: 05/03/18 18:24 Dose: 2 unit Lactulose (Lactulose Liq) 30 ml PO DAILY PRN PRN Reason: SEVERE CONSITIPATION Lactulose (Lactulose Liq) 30 ml PO BID [facility] Last Admin: 05/03/18 08:30 Dose: 30 ml Magnesium Oxide (Mag-Ox) 800 mg PO UNSCH PRN PRN Reason: For Magnesium 1.2 - 1.6 mg/dL Methylprednisolone Sodium Succinate (Solumedrol Inj) 80 mg IV.PUSH Q8HR [facility] Last Admin: 05/03/18 13:34 Dose: 80 mg Metoprolol Tartrate (Lopressor) 50 mg PO BID [facility] Last Admin: 05/03/18 08:30 Dose: 50 mg Miscellaneous Information ([facility] Ordered Lab Info) 0 each OTHER ONCE ONE Stop: 05/04/18 01:46 Ondansetron HCl (Zofran Inj) 4 mg IV.PUSH Q6H PRN PRN Reason: NAUSEA OR VOMITING Pantoprazole Sodium (Protonix Inj) 40 mg IV.PUSH DAILY [facility] Last Admin: 05/03/18 08:31 Dose: 40 mg Pharmacy Profile Note (Vancomycin Consult Pharmacy) 1 each OTHER UNSCH PRN PRN Reason: Pharmacy to dose Polyethylene Glycol (Miralax) 17 gm PO BID [facility] Last Admin: 05/03/18 08:31 Dose: 17 gm Potassium Bicarb/Potassium Chloride (K-Lyte Cl Eff) 50 meq PO UNSCH PRN PRN Reason: For Potassium 3.3 - 3.5 mEq/L Potassium Phosphate (K-Phos Original) 2,000 mg PO Q4H PRN PRN Reason: Phosphorus Less Than 2.5 mg/dL Potassium Phosphate (K-Phos Original) 2,000 mg PO UNSCH PRN PRN Reason: SEE LABEL COMMENTS Senna/Docusate Sodium (Jemima-Colace) 1 tab PO BID [facility] Last Admin: 05/03/18 08:30 Dose: 1 tab Sennosides (Senokot) 17.2 mg PO Q12H PRN PRN Reason: Moderate Constipation Sodium Chloride (Ns Flush) 2 ml IV.FLUSH BID [facility] Last Admin: 05/03/18 08:31 Dose: 2 ml Sodium Chloride (Ns Flush) 2 ml IV.FLUSH PRN PRN PRN Reason: FLUSH AFTER USING IV ACCESS Sterile Water (Free Water) 250 ml G-TUBE Q8HR [facility] Last Admin: 05/03/18 13:35 Dose: 250 ml Terbutaline Sulfate (Brethine Inj) 1 mg SQ UNSCH PRN PRN Reason: For Extravasation Allergies Allergy/AdvReac Type Severity Reaction Status Date / Time shellfish derived Allergy Anaphylaxis Verified 04/29/18 13:12 No Known Allergies Allergy Uncoded 04/29/18 13:12 Home Medications Medication Instructions Recorded Confirmed Type Unable to Obtain Home Meds 04/27/18 04/27/18 History Exam Vital signs: Vital Signs 05/02/18 20:00 05/02/18 22:22 05/03/18 00:00 Temperature 102.6 F H 101.1 F H Pulse Rate 124 H 98 H 96 H Respiratory Rate 16 16 17 Blood Pressure 117/59 L 106/56 L Pulse Oximetry 94 L 05/03/18 04:00 05/03/18 04:34 05/03/18 07:18 Temperature 100.9 F H Pulse Rate 114 H 108 H 85 Respiratory Rate 16 16 16 Blood Pressure 119/65 Pulse Oximetry 94 L 87 L 05/03/18 08:00 05/03/18 11:00 05/03/18 12:00 Temperature 99.5 F 99.9 F H Pulse Rate 112 H 98 H 93 H Respiratory Rate 16 17 16 Blood Pressure 124/65 Pulse Oximetry 93 L 89 L 91 L 05/03/18 13:02 05/03/18 14:31 Temperature Pulse Rate 106 H Respiratory Rate 19 17 Blood Pressure Pulse Oximetry 93 L Intake & Output 05/02/18 05/03/18 05/03/18 19:59 06:59 18:59 Intake Total 2358 / 2358 Output Total 1150 / 1150 Balance 1208 / 1208 Weight Intake: IV 1890 / 1890 Versed Inj 50 mg In 50 ml @ 2 50 / 50 MG/HR 2 mls/hr IV.CONT TITRATE PRN Rx#:[id number] Diprivan 1000 mg/100 ml Inj 1, 300 / 300 000 mg In 100 ml @ 5 MCG/KG/MIN 4.77 mls/hr IV.CONT TITRATE PRN Rx#:[id number] Zosyn 4.5 GM Premix 4.5 gm In 300 / 300 100 ml @ 200 mls/hr IV.SIG Q6H SUSAN Rx#:[id number] KCl 40 mEq Premix Inj 40 meq In 100 ml @ 25 mls/hr IV.SIG Q2H PRN Rx#:[id number] Vancomycin Inj 2,000 MG In NS 1040 / 1040 Inj 500 ML @ 250 mls/hr IV.SIG Q8H SUSAN Rx#:[id number] fentaNYL 10 mcg/mL Premix Drip 2,500 mcg In 250 ml @ 50 MCG/HR 5 mls/hr IV.SIG TITRATE PRN Rx #:[id number] Flolan (30,000 ng/mL) Neb 90 ML 200 / 200 In NS Inj 10 ML @ 5 mls/hr NEB Q8H SUSAN Rx#:[id number] Tube Feeding 168 / 168 Tube Irrigant 100 / 100 Water Bolus Amount 200 / 200 Output: Urine Amount (Catheter) 1150 / 1150 Indwelling Urethral Catheter 1150 / 1150 Other: Date of Last Bowel Movement 05/02/18 # Bowel Movements - Constitutional no acute distress, morbidly obese - Routine HEENT Exam Head: Present: normocephalic, atraumatic Eye: Present: EOMI, PERRL ENT: Present: mucous membranes moist, oropharynx clear - Routine Neck Exam Present: supple. Absent: JVD - Routine Respiratory Exam Present: patient mechanically ventilated, decreased breath sounds, rhonchi - Routine Cardiovascular Exam Present: RRR, S1, S2. Absent: murmur, gallop, rubs - Routine Abdominal Exam Present: soft, normoactive bowel sounds. Absent: tenderness, distended, organomegaly, mass - Routine Extremities Exam Present: edema (trace), normal capillary refill. Absent: cyanosis, clubbing - Routine Skin Exam Present: intact, dry, warm. Absent: rash - Routine Neurological Exam sedated, respond to noxious/ tactile stimulio, not following commands - Routine Psychiatric Exam Present: unable to assess Results - Labs CBC & Chem 7: 05/03/18 04:20 05/03/18 11:35 Labs: Laboratory Results - last 24 hr 05/02/18 05/03/18 05/03/18 20:50 01:08 EST 01:45 EST WBC RBC Hgb Hct MCV MCH MCHC RDW Plt Count MPV Neut % (Auto) Lymph % (Auto) Norton % (Auto) Eos % (Auto) Baso % (Auto) Neut # (Auto) Lymph # (Auto) Norton # (Auto) Eos # (Auto) Baso # (Auto) WBC Differential Differential Comment Sodium Potassium 3.8 Chloride Carbon Dioxide Anion Gap BUN Creatinine Estimated GFR POC Glucose 134 H Random Glucose Calcium Phosphorus Magnesium Total Bilirubin AST ALT Alkaline Phosphatase Total Protein Albumin Vancomycin Trough 7.2 05/03/18 05/03/18 05/03/18 04:20 04:20 07:53 WBC 10.3 RBC 3.33 L Hgb 10.1 L Hct 29.8 L MCV 89.7 MCH 30.3 MCHC 33.8 RDW 15.3 Plt Count 261 MPV 7.7 Neut % (Auto) 87.0 H Lymph % (Auto) 9.4 Norton % (Auto) 3.3 Eos % (Auto) 0.0 Baso % (Auto) 0.3 Neut # (Auto) 9.0 H Lymph # (Auto) 1.0 Norton # (Auto) 0.3 Eos # (Auto) 0.0 Baso # (Auto) 0.0 WBC Differential . Differential Comment Auto diff final Sodium 146 H Potassium 3.7 Chloride 112 H Carbon Dioxide 26.6 Anion Gap 7 BUN 24 H Creatinine 0.81 Estimated GFR Greater than 89 POC Glucose 177 H Random Glucose 209 H Calcium 8.2 L Phosphorus 3.2 Magnesium 2.3 Total Bilirubin 0.4 AST 79 H ALT 61 H Alkaline Phosphatase 110 Total Protein 6.7 Albumin 2.2 L Vancomycin Trough 05/03/18 05/03/18 05/03/18 11:35 11:49 18:05 WBC RBC Hgb Hct MCV MCH MCHC RDW Plt Count MPV Neut % (Auto) Lymph % (Auto) Norton % (Auto) Eos % (Auto) Baso % (Auto) Neut # (Auto) Lymph # (Auto) Norton # (Auto) Eos # (Auto) Baso # (Auto) WBC Differential Differential Comment Sodium Potassium 3.8 Chloride Carbon Dioxide Anion Gap BUN Creatinine Estimated GFR POC Glucose 152 H 164 H Random Glucose Calcium Phosphorus Magnesium Total Bilirubin AST ALT Alkaline Phosphatase Total Protein Albumin Vancomycin Trough - Imaging Chest X-Ray 04/27/18 11:31 CONCLUSION: ETT in good position. Cardiomegaly with moderate interstitial edema. Head CT 04/27/18 11:31 CONCLUSION: 1. Negative CT Head non contrast. . Abdomen/Pelvis CT 04/27/18 11:35 CONCLUSION: 1. Extensive atelectasis in both lower lobes. 2. The Stone catheter needs to be deflated and advanced into the bladder. The catheter is at the level of the prosthetic urethra. 3. No findings to indicate a bowel obstruction are seen. No free air free fluid is identified. Chest CT 04/27/18 11:35 CONCLUSION: 1. Consolidation both posterior lungs with air bronchograms. This could represent bilateral pneumonia or aspiration. Cervical Spine CT 04/27/18 11:36 CONCLUSION: 1. Negative trauma study. Lumbar Spine CT 04/27/18 11:59 CONCLUSION: 1. Negative for acute process 2. There is no evidence for vertebral compression. Chest X-Ray 04/27/18 12:01 CONCLUSION: ETT in good position. Increasing interstitial edema. Chest X-Ray 04/27/18 16:04 CONCLUSION: 1. Double placement of left internal jugular central venous line with no visualized pneumothorax on the supine study. 2. The patient remains intubated and there are alveolar opacities greatest in the right lung. Chest X-Ray 04/28/18 15:23 CONCLUSION: 1. Worsening perihilar and bibasilar opacities most characteristic of pulmonary edema. 2. Blunting of the costophrenic angles consistent with effusions. 3. Cardiomegaly. 4. Placement of nasogastric tube which is not well visualized. Chest X-Ray 04/29/18 04:00 CONCLUSION: Right greater than left parenchymal opacities, intervally worse on the right and improved on the left. Head MRI 04/29/18 07:05 CONCLUSION: 1. Negative MRI of the brain. 2. Inflammatory process cannot be entirely excluded. 3. There are no infarcts identified. Chest X-Ray 04/30/18 06:00 CONCLUSION: No significant change right greater than left basilar consolidation and pleural effusions. Chest X-Ray 05/01/18 14:38 CONCLUSION: Support apparatus in good position. Stable chest. Chest X-Ray 05/02/18 00:00 CONCLUSION: No significant change. Right greater than left consolidation and small effusions again noted. Assessment and Plan - Plan PNA, probably aspiration Acute VDRF Growing MSSA, beta strep from the sputum Morbid obesity with likley obesity- hypoventilation sd cont zosyn will dc vancomycin if no MRSA in BAL add azithro for atypical coverage sanket RN dw family @ b/s
[2018-05-03] MEDS: Azithromycin Inj 500 MG in Sodium Chlor 0.9% Inj 250 ML IV.SIG SCH (20:24)
[2018-05-04] MEDS: Propofol 1000 mg/100 ml Inj 1,000 MG/100 ML BOTTLE IV.CONT PRN ×13 (00:13→23:20)
[2018-05-04] MEDS: Potassium Chlor 40 mEq Premix 40 MEQ/100 ML PIGGYBACK IV.SIG PRN (00:23)
[2018-05-04] MEDS: Artificial Tears Opth Drops 15 ML Bottle EACH EYE SCH ×4 (00:23→23:35)
[2018-05-04] MEDS: Cisatracurium Inj 100 MG in Sodium Chlor 0.9% Inj 240 ML IV.CONT PRN ×7 (00:33→11:55)
[2018-05-04] MEDS ORDERED: Pharmacy Ordered Lab Info OTHER ONE (01:45)
[2018-05-04] MEDS: Vancomycin Inj 2,000 MG in Sodium Chlor 0.9% Inj 500 ML IV.SIG SCH ×3 (02:07→10:28)
[2018-05-04] MEDS: Insulin NovoLOG Aspart Correctional Sugar Inj SQ SCH ×5 (02:09→23:34)
[2018-05-04] MEDS: Piperacil/Tazo 4.5 GM Premix 4.5 GM/100 ML BAG IV.SIG SCH ×4 (03:04→21:09)
[2018-05-04] MEDS: Midazolam 50 MG/50 ML Inj 50 MG/50 ML BAG IV.CONT PRN ×5 (03:05→21:12)
[2018-05-04] MEDS: Heparin - SQ 10,000 UNITS/ML Vial SQ SCH ×2 (05:59→17:17)
[2018-05-04] MEDS: MethylPREDNISolone Sod Succinate Inj 40 MG/ML Vial IV.PUSH SCH ×3 (05:59→21:11)
[2018-05-04 06:27] LABS: Baso % (Auto) 0.3 % (0.0-2.0); Hematocrit 28.9 % (39.0-51.0); Hemoglobin 9.8 gm/dL (13.0-17.0); Lymph # (Auto) 1.7 th/mm3 (1.0-4.8); Lymph % (Auto) 11.9 % (9.0-44.0); Mean Corpuscular HGB Conc 33.8 % (32.0-36.0); Mean Corpuscular Hemoglobin 29.8 pg (27.0-34.0); Mono # (Auto) 1.1 th/mm3 (0.0-0.9); Mono % (Auto) 7.5 % (0.0-8.0); Neut # (Auto) 11.7 th/mm3 (1.8-7.7); Neut % (Auto) 80.3 % (16.0-70.0); Platelet Count 328 th/mm3 (150-450); Red Blood Count 3.28 mil/mm3 (4.50-5.90); Red Cell Distribution Width 15.1 % (11.6-17.2); White Blood Count 14.6 th/mm3 (4.0-11.0)
--- NOTE | 2018-05-04 06:38 | P.PNNEU ---
Subjective Medication List: no acute events Active Medications: Active Medications Acetaminophen (Tylenol Liq) 650 mg PO Q6H PRN PRN Reason: FEVER Last Admin: 05/04/18 03:55 Dose: 650 mg Acetylcysteine (Mucomyst 10% Neb) 2 ml NEB Q4HR NEB [facility] Last Admin: 05/04/18 03:46 Dose: 2 ml Al Hydroxide/Mg Hydroxide (Milk Of Magnesia Liq) 30 ml PO Q12H PRN PRN Reason: Mild Constipation Albuterol (Albuterol Neb (Prn)) 2.5 mg NEB Q2HR NEB PRN PRN Reason: SHORTNESS OF BREATH/WHEEZING Albuterol (Duoneb Neb (Susan)) 1 ampul NEB Q4HR NEB [facility] Last Admin: 05/04/18 03:46 Dose: 1 ampul Artificial Tears (Tears Naturale Opth Drops) 1 drop EACH EYE Q8H [facility] Last Admin: 05/04/18 00:23 Dose: 1 drop Bisacodyl (Dulcolax Supp) 10 mg RECTAL DAILY PRN PRN Reason: SEVERE CONSITIPATION Dextrose (D50w Vial) 50 ml IV.PUSH UNSCH PRN PRN Reason: PER HYPOGLYCEMIA PROTOCOL Furosemide (Lasix Inj) 40 mg IV.PUSH BID@0900,1800 [facility] Last Admin: 05/03/18 20:22 Dose: 40 mg Glucagon (Glucagon Inj) 1 mg OTHER PRN PRN PRN Reason: for Hypoglycemia Protocol Heparin Sodium (Porcine) (Heparin Inj) 5,000 units SQ Q12H [facility] Last Admin: 05/04/18 05:59 Dose: 5,000 units Magnesium Sulfate 4 gm/ Sodium (Chloride) 100 mls @ 50 mls/hr IV.SIG UNSCH PRN PRN Reason: For Magnesium 0.9 - 1.1 mg/dL Potassium Chloride (Kcl 40 Meq Premix Inj) 40 meq in 100 mls @ 25 mls/hr IV.SIG Q2H PRN PRN Reason: For Potassium 2.8 - 3.2 mEq/L Last Infusion: 05/02/18 22:49 Dose: Infused Potassium Chloride (Kcl 20 Meq Premix Inj) 20 meq in 100 mls @ 50 mls/hr IV.SIG Q2H PRN PRN Reason: For Potassium 3.3 - 3.5 mEq/L Potassium Chloride (Kcl 40 Meq Premix Inj) 40 meq in 100 mls @ 25 mls/hr IV.SIG UNSCH PRN PRN Reason: For Potassium 3.3 - 3.5 mEq/L Last Infusion: 05/04/18 05:27 Dose: Infused Potassium Chloride (Kcl 20 Meq Premix Inj) 20 meq in 100 mls @ 50 mls/hr IV.SIG Q2H PRN PRN Reason: For Potassium 2.8 - 3.2 mEq/L Potassium Phosphate 30 mmol/ (Sodium Chloride) 260 mls @ 42 mls/hr IV.SIG UNSCH PRN PRN Reason: SEE LABEL COMMENTS Magnesium Sulfate 2 gm/ Sodium (Chloride) 100 mls @ 50 mls/hr IV.SIG UNSCH PRN PRN Reason: For Magnesium 1.2 - 1.6 mg/dL Sodium Phosphate 30 mmol/ (Sodium Chloride) 260 mls @ 42 mls/hr IV.SIG UNSCH PRN PRN Reason: For Phosphorus < 2.5 mg/dL Propofol (Diprivan 1000 Mg/100 Ml Inj) 1,000 mg in 100 mls @ 4.77 mls/hr IV.CONT TITRATE PRN; Protocol PRN Reason: Per Protocol Last Admin: 05/04/18 06:00 Dose: 50 mcg/kg/min, 47.7 mls/hr Fentanyl (Fentanyl 10 Mcg/Ml Premix Drip) 2,500 mcg in 250 mls @ 5 mls/hr IV.SIG TITRATE PRN; Protocol PRN Reason: Per Protocol Last Admin: 05/03/18 22:28 Dose: 250 mcg/hr, 25 mls/hr Piperacillin/Tazobactam/Dextrose (Zosyn 4.5 Gm Premix) 4.5 gm in 100 mls @ 200 mls/hr IV.SIG Q6H SUSAN Last Infusion: 05/04/18 05:26 Dose: Infused Vancomycin HCl 1,000 mg/ (Sodium Chloride) 250 mls @ 200 mls/hr IV.SIG [employer] SUSAN Dexmedetomidine HCl 200 mcg/ (Sodium Chloride) 50 mls @ 9.01 mls/hr IV.CONT TITRATE PRN; Protocol PRN Reason: Per Protocol Last Titration: 04/30/18 22:04 Dose: Infused Midazolam HCl (Versed Inj) 50 mg in 50 mls @ 2 mls/hr IV.CONT TITRATE PRN; Protocol PRN Reason: Per Protocol Last Admin: 05/04/18 03:05 Dose: 10 mg/hr, 10 mls/hr Vancomycin HCl 2,000 mg/ (Sodium Chloride) 520 mls @ 250 mls/hr IV.SIG Q8H [facility] Last Infusion: 05/04/18 05:26 Dose: Infused Epoprostenol Sodium 90 ml/ (Sodium Chloride) 100 mls @ 5 mls/hr NEB Q8H [facility] Last Admin: 05/03/18 18:24 Dose: 5 mls/hr Cisatracurium Besylate 100 mg/ (Sodium Chloride) 250 mls @ 27.6 mls/hr IV.CONT TITRATE PRN; Protocol PRN Reason: Per Protocol Last Admin: 05/04/18 06:30 Dose: 6 mcg/kg/min, 165.6 mls/hr Azithromycin 500 mg/ Sodium (Chloride) 250 mls @ 250 mls/hr IV.SIG Q24H [facility] Last Infusion: 05/04/18 00:14 Dose: Infused Insulin Aspart (Novolog Insulin Correctional Sugar Inj) 0 unit SQ Q6HR [facility]; Protocol Last Admin: 05/04/18 06:30 Dose: 2 unit Lactulose (Lactulose Liq) 30 ml PO DAILY PRN PRN Reason: SEVERE CONSITIPATION Lactulose (Lactulose Liq) 30 ml PO BID [facility] Last Admin: 05/03/18 20:23 Dose: 30 ml Magnesium Oxide (Mag-Ox) 800 mg PO UNSCH PRN PRN Reason: For Magnesium 1.2 - 1.6 mg/dL Methylprednisolone Sodium Succinate (Solumedrol Inj) 80 mg IV.PUSH Q8HR [facility] Last Admin: 05/04/18 05:59 Dose: 80 mg Metoprolol Tartrate (Lopressor) 50 mg PO BID [facility] Last Admin: 05/03/18 20:23 Dose: 50 mg Ondansetron HCl (Zofran Inj) 4 mg IV.PUSH Q6H PRN PRN Reason: NAUSEA OR VOMITING Pantoprazole Sodium (Protonix Inj) 40 mg IV.PUSH DAILY [facility] Last Admin: 05/03/18 08:31 Dose: 40 mg Pharmacy Profile Note (Vancomycin Consult Pharmacy) 1 each OTHER UNSCH PRN PRN Reason: Pharmacy to dose Polyethylene Glycol (Miralax) 17 gm PO BID [facility] Last Admin: 05/03/18 20:23 Dose: 17 gm Potassium Bicarb/Potassium Chloride (K-Lyte Cl Eff) 50 meq PO UNSCH PRN PRN Reason: For Potassium 3.3 - 3.5 mEq/L Potassium Phosphate (K-Phos Original) 2,000 mg PO Q4H PRN PRN Reason: Phosphorus Less Than 2.5 mg/dL Potassium Phosphate (K-Phos Original) 2,000 mg PO UNSCH PRN PRN Reason: SEE LABEL COMMENTS Senna/Docusate Sodium (Jemima-Colace) 1 tab PO BID [facility] Last Admin: 05/03/18 20:23 Dose: 1 tab Sennosides (Senokot) 17.2 mg PO Q12H PRN PRN Reason: Moderate Constipation Sodium Chloride (Ns Flush) 2 ml IV.FLUSH BID [facility] Last Admin: 05/03/18 20:24 Dose: 2 ml Sodium Chloride (Ns Flush) 2 ml IV.FLUSH PRN PRN PRN Reason: FLUSH AFTER USING IV ACCESS Sterile Water (Free Water) 250 ml G-TUBE Q8HR [facility] Last Admin: 05/04/18 05:59 Dose: 250 ml Terbutaline Sulfate (Brethine Inj) 1 mg SQ UNSCH PRN PRN Reason: For Extravasation Allergies/Adverse Reactions: Allergies Allergy/AdvReac Type Severity Reaction Status Date / Time shellfish derived Allergy Anaphylaxis Verified 04/29/18 13:12 No Known Allergies Allergy Uncoded 04/29/18 13:12 Review of Systems unobtainable due to endotracheal tube, unobtainable due to mental status Physical Exam Vital signs: Vital Signs 05/03/18 07:18 05/03/18 08:00 05/03/18 11:00 Temperature 99.5 F Pulse Rate 85 112 H 98 H Respiratory Rate 16 16 17 Blood Pressure 124/65 Pulse Oximetry 87 L 93 L 89 L 05/03/18 12:00 05/03/18 13:02 05/03/18 14:31 Temperature 99.9 F H Pulse Rate 93 H 106 H Respiratory Rate 16 19 17 Blood Pressure Pulse Oximetry 91 L 93 L 05/03/18 16:00 05/03/18 19:20 05/03/18 19:26 Temperature 101.9 F H Pulse Rate 92 H 120 H Respiratory Rate 16 16 16 Blood Pressure Pulse Oximetry 91 L 96 05/03/18 20:00 05/03/18 21:00 11/04/18 22:00 Temperature 103.6 F H Pulse Rate 125 H 109 H 108 H Respiratory Rate 16 16 16 Blood Pressure Pulse Oximetry 96 95 96 05/03/18 22:15 05/03/18 23:00 05/03/18 23:27 Temperature Pulse Rate 104 H 101 H Respiratory Rate 16 16 16 Blood Pressure Pulse Oximetry 95 95 05/04/18 00:00 05/04/18 01:00 05/04/18 01:12 Temperature 103.2 F H Pulse Rate 110 H 101 H Respiratory Rate 16 16 16 Blood Pressure Pulse Oximetry 97 96 96 05/04/18 02:00 05/04/18 03:00 05/04/18 03:46 Temperature 102.9 F H Pulse Rate 101 H 110 H 101 H Respiratory Rate 16 16 16 Blood Pressure Pulse Oximetry 96 95 05/04/18 04:00 05/04/18 04:15 05/04/18 05:00 Temperature 102.6 F H Pulse Rate 103 H 115 H Respiratory Rate 16 16 16 Blood Pressure Pulse Oximetry 95 96 96 Intake & Output 05/03/18 05/03/18 05/04/18 06:59 18:59 06:59 Intake Total 2508 / 2508 4080 / 4080 Output Total 2100 / 2100 Balance 408 / 408 4080 / 4080 Weight Intake: IV 2040 / 2040 4080 / 4080 Bumex Inj 25 mg In 100 ml @ 1 40 / 40 MG/HR 4 mls/hr IV.CONT .Q24H SUSAN Rx#:[id number] Nimbex Inj 100 MG In NS Inj 240 1500 / 1500 ML @ 1 MCG/KG/MIN 27.6 mls/hr IV.CONT TITRATE PRN Rx#: [id number] Versed Inj 50 mg In 50 ml @ 2 100 / 100 100 / 100 MG/HR 2 mls/hr IV.CONT TITRATE PRN Rx#:[id number] Diprivan 1000 mg/100 ml Inj 1, 400 / 400 600 / 600 000 mg In 100 ml @ 5 MCG/KG/MIN 4.77 mls/hr IV.CONT TITRATE PRN Rx#:[id number] Azithromycin Inj 500 MG In NS 250 / 250 Inj 250 ML @ 250 mls/hr IV.SIG Q24H SUSAN Rx#:[id number] Zosyn 4.5 GM Premix 4.5 gm In 300 / 300 200 / 200 100 ml @ 200 mls/hr IV.SIG Q6H SUSAN Rx#:[id number] KCl 40 mEq Premix Inj 40 meq In 100 / 100 100 ml @ 25 mls/hr IV.SIG UNSCH PRN Rx#:[id number] Vancomycin Inj 2,000 MG In NS 1040 / 1040 1040 / 1040 Inj 500 ML @ 250 mls/hr IV.SIG Q8H SUSAN Rx#:[id number] fentaNYL 10 mcg/mL Premix Drip 250 / 250 2,500 mcg In 250 ml @ 50 MCG/HR 5 mls/hr IV.SIG TITRATE PRN Rx #:[id number] Flolan (30,000 ng/mL) Neb 90 ML 200 / 200 In NS Inj 10 ML @ 5 mls/hr NEB Q8H SUSAN Rx#:[id number] Tube Feeding 168 / 168 Tube Irrigant 100 / 100 Water Bolus Amount 200 / 200 Output: Urine Amount (Catheter) 2099 Indwelling Urethral Catheter 2099 Other: Date of Last Bowel Movement 05/02/18 05/02/18 # Bowel Movements Narrative: GENERAL: in NAD, obese SKIN: Warm and dry. HEAD: Atraumatic. Normocephalic. NECK: Intubated CARDIOVASCULAR: Regular rate and rhythm. RESPIRATORY: Intubated MUSCULOSKELETAL: Extremities without clubbing, cyanosis, or edema. No obvious deformities. NEUROLOGICAL: Intubated, on sedation and paralytics, limited exam, prone position PSYCHIATRIC: Calm - Urinary Catheter Management Indwelling Urethral Catheter Cath placed during this visit: yes, but has since been removed by the nurse Reason for continuing: Acute urinary retention Insertion date: 04/30/18 Insertion time: 18:00 Removal date: 04/28/18 Removal time: 18:45 Straight Cath placed during this visit: yes, but has since been removed by the nurse Reason for continuing: Acute urinary retention Insertion date: 04/30/18 Insertion time: 05:00 Removal date: 04/30/18 Removal time: 05:00 Objective Laboratory Results - last 24 hr 05/03/18 05/03/18 05/03/18 07:53 11:35 11:49 WBC RBC Hgb Hct MCV MCH MCHC RDW Plt Count MPV Neut % (Auto) Lymph % (Auto) [place] % (Auto) Eos % (Auto) Baso % (Auto) Neut # (Auto) Lymph # (Auto) [place] # (Auto) Eos # (Auto) Baso # (Auto) WBC Differential Differential Comment Potassium 3.8 POC Glucose 177 H 152 H Vancomycin Trough 05/03/18 05/03/18 05/03/18 18:05 22:45 23:45 WBC RBC Hgb Hct MCV MCH MCHC RDW Plt Count MPV Neut % (Auto) Lymph % (Auto) [place] % (Auto) Eos % (Auto) Baso % (Auto) Neut # (Auto) Lymph # (Auto) [place] # (Auto) Eos # (Auto) Baso # (Auto) WBC Differential Differential Comment Potassium 3.4 L POC Glucose 164 H 138 H Vancomycin Trough 05/04/18 05/04/18 05/04/18 01:45 05:00 06:13 WBC 14.6 H RBC 3.28 L Hgb 9.8 L Hct 28.9 L MCV 88.0 MCH 29.8 MCHC 33.8 RDW 15.1 Plt Count 328 MPV 8.0 Neut % (Auto) 80.3 H Lymph % (Auto) 11.9 [place] % (Auto) 7.5 Eos % (Auto) 0.0 Baso % (Auto) 0.3 Neut # (Auto) 11.7 H Lymph # (Auto) 1.7 [place] # (Auto) 1.1 H Eos # (Auto) 0.0 Baso # (Auto) 0.0 WBC Differential . Differential Comment Auto diff final Potassium POC Glucose 162 H Vancomycin Trough 10.0 Microbiology 05/02/18 17:30 Gram Stain - Final Bronchial - Bronchial Bronchial Culture - Preliminary Staphylococcus coag positive 05/01/18 03:00 Gram Stain - Final Sputum - Endotracheal Sputum Culture - Final Staphylococcus aureus 05/01/18 14:27 Aerobic Blood Culture - Preliminary Blood - Peripheral No growth in 2 days Anaerobic Blood Culture - Preliminary No growth in 2 days 05/01/18 14:20 Aerobic Blood Culture - Preliminary Blood - Peripheral No growth in 2 days Anaerobic Blood Culture - Preliminary No growth in 2 days Review/Management - Diagnosis (1) Acute metabolic encephalopathy Code(s): G93.41 - Metabolic encephalopathy Status: Deleted Current Visit: Yes (2) Acute respiratory failure Code(s): J96.00 - Acute respiratory failure, unspecified whether with hypoxia or hypercapnia Status: Deleted Current Visit: Yes (3) Aspiration pneumonitis Code(s): J69.0 - Pneumonitis due to inhalation of food and vomit Status: Deleted Current Visit: Yes (4) PCP intoxication Code(s): F16.929 - Hallucinogen use, unspecified with intoxication, unspecified Status: Deleted Current Visit: Yes (5) Toxic encephalopathy Code(s): G92 - Toxic encephalopathy Status: Acute Current Visit: Yes - Review/Management Plan: Drug-induced encephalopathy. Possible PCP although exact substance in the bag is not known; father thinks he may have overdosed on Sonata which case he should slowly wake up CT brain negative now with ARDS, pneumonia causing fevers. ID following mri nml. eeg negative for sz Recommendation limited neuro exam 2/2 sedation/paralytics Discussed with ccm
[2018-05-04 06:50] LABS: Albumin 2.2 g/dL (3.4-5.0); Anion Gap 9 meq/L (5-15); Aspartate Aminotransferase 35 U/L (15-39); Blood Urea Nitrogen 27 mg/dL (7-18); Calcium 8.1 mg/dL (8.5-10.1); Carbon Dioxide 24.1 meq/L (21.0-32.0); Chloride 114 meq/L (98-107); Glomerular Filtration Rate Greater Than 89 mL/min (>89); Glucose,Random 140 mg/dL (74-106); Magnesium 2.4 mg/dL (1.5-2.5); Potassium 3.6 meq/L (3.5-5.1); Sodium 147 meq/L (136-145)
[2018-05-04 06:51] LABS: Alanine Aminotransferase 55 U/L (9-52); Phosphorus 2.7 mg/dL (2.5-4.9)
[2018-05-04 06:54] LABS: Alkaline Phosphatase 94 U/L (45-117); Total Protein 6.7 g/dL (6.4-8.2)
--- NOTE | 2018-05-04 07:08 | P.PNCC ---
Subjective Subjective Remarks/Hospital Course: Patient is approximately 22 years old male obese, was found on the floor by a family member, downtime is unknown. EMS was called, patient was given Narcan with no response, he was intubated on the scene, apparently GCS 3. Found bag of PCP next to the patient. Patient has history of psychiatric disorder ? bipolar disorder and I am told he has attempted suicide in the past. There is also mention about suspicion of ethylene glycol ingestion, but his serum osmolality is 307 his osmolar gap is only 13. Bicarb is 26, ethylene glycol seems unlikely. Ethanol was negative urine drug screen only positive for benzo. I evaluated the patient in the ICU at the [facility]. Patient had a CT of the head which was negative. Rest of the workup unremarkable except for bibasilar atelectasis/aspiration pneumonia. Patient's white count is elevated at 17.1, glucose is 232 lactic acid was 2.8. He received multiple fluid boluses. At this time he is not on any sedation but remains unresponsive no response to deep pain 04/28 Patient remains intubated off sedation unresponsive. Afebrile. 04/29: MRI of the brain revealed no acute intracranial findings. EEG to be performed tomorrow. More arousable and moves all 4 extremities but not following commands. Placed on dexamethasone E drip. 2 feeds will be restarted SUBJECTIVE: 04/30: T-max 101.4. Currently afebrile. No bowel movement since admission. Arousable and follows simple commands late last night but currently on sedation for agitation. Increased FiO2 noted. Will attempt to gently diurese and continue antibiotics for pansensitive staph aureus/group a beta strep sputum 05/01 Patient is sedated with Fentanyl, Diprivan and intubated. T:101.1 at 5am. Placed on APRV overnight. 05/02 Patient is sedated with Diprivan and Fentanyl drips. Tmax 101.3, on PC/AC with PEEP:12, FIO2 80%, IP:30 05/03 Patient is heavily sedated with Diprivan, Fentanyl and Versed . On PC/AC with PEEP: 14 and FIO2 100$ sats 92%, CXR yesterday showed diffuse b/l pulm infiltrates, started on Flolan nebs. Had Tmax 102.6 last night. 05/04 Patient was placed on rotoprone bed yesterday sedated with Diprivan, Versed and Fentanyl infusion and on neuromuscular blockade( Nimbex) On PC/AC His FIO2 requirements is better now on FIO2:50% from 100% with PEEP:14. T:102.6 Objective Vital Signs / I&O: Vital Signs 05/03/18 07:18 05/03/18 08:00 05/03/18 11:00 Temperature 99.5 F Pulse Rate 85 112 H 98 H Respiratory Rate 16 16 17 Blood Pressure 124/65 Pulse Oximetry 87 L 93 L 89 L 05/03/18 12:00 05/03/18 13:02 05/03/18 14:31 Temperature 99.9 F H Pulse Rate 93 H 106 H Respiratory Rate 16 19 17 Blood Pressure Pulse Oximetry 91 L 93 L 05/03/18 16:00 05/03/18 19:20 05/03/18 19:26 Temperature 101.9 F H Pulse Rate 92 H 120 H Respiratory Rate 16 16 16 Blood Pressure Pulse Oximetry 91 L 96 05/03/18 20:00 05/03/18 21:00 05/03/18 22:00 Temperature 103.6 F H Pulse Rate 125 H 109 H 108 H Respiratory Rate 16 16 16 Blood Pressure Pulse Oximetry 96 95 96 05/03/18 22:15 05/03/18 23:00 05/03/18 23:27 Temperature Pulse Rate 104 H 101 H Respiratory Rate 16 16 16 Blood Pressure Pulse Oximetry 95 95 05/04/18 00:00 05/04/18 01:00 05/04/18 01:12 Temperature 103.2 F H Pulse Rate 110 H 101 H Respiratory Rate 16 16 16 Blood Pressure Pulse Oximetry 97 96 96 05/04/18 02:00 05/04/18 03:00 05/04/18 03:46 Temperature 102.9 F H Pulse Rate 101 H 110 H 101 H Respiratory Rate 16 16 16 Blood Pressure Pulse Oximetry 96 95 05/04/18 04:00 05/04/18 04:15 05/04/18 05:00 Temperature 102.6 F H Pulse Rate 103 H 115 H Respiratory Rate 16 16 16 Blood Pressure Pulse Oximetry 95 96 96 Intake & Output 05/03/18 05/04/18 05/04/18 18:59 06:59 18:59 Intake Total 2508 / 2508 4080 / 4080 Output Total 2099 2099 Balance 408 / 408 4080 / 4080 Intake: IV 2039 / 0 4080 / 4080 Bumex Inj 25 mg In 100 ml @ 1 40 / 40 MG/HR 4 mls/hr IV.CONT .Q24H DARRION Rx#:[id number] Nimbex Inj 100 MG In NS Inj 240 1500 / 1500 ML @ 1 MCG/KG/MIN 27.6 mls/hr IV.CONT TITRATE PRN Rx#: [id number] Versed Inj 50 mg In 50 ml @ 2 100 / 100 100 / 100 MG/HR 2 mls/hr IV.CONT TITRATE PRN Rx#:[id number] Diprivan 1000 mg/100 ml Inj 1, 400 / 400 600 / 600 000 mg In 100 ml @ 5 MCG/KG/MIN 4.77 mls/hr IV.CONT TITRATE PRN Rx#:[id number] Azithromycin Inj 500 MG In NS 250 / 250 Inj 250 ML @ 250 mls/hr IV.SIG Q24H [facility] Rx#:[id number] Zosyn 4.5 GM Premix 4.5 gm In 300 / 300 200 / 200 100 ml @ 200 mls/hr IV.SIG Q6H [facility] Rx#:[id number] KCl 40 mEq Premix Inj 40 meq In 100 / 100 100 ml @ 25 mls/hr IV.SIG UNSCH PRN Rx#:[id number] Vancomycin Inj 2,000 MG In NS 1040 / 1040 1040 / 1040 Inj 500 ML @ 250 mls/hr IV.SIG Q8H [facility] Rx#:[id number] fentaNYL 10 mcg/mL Premix Drip 250 / 250 2,500 mcg In 250 ml @ 50 MCG/HR 5 mls/hr IV.SIG TITRATE PRN Rx #:[id number] Flolan (30,000 ng/mL) Neb 90 ML 200 / 200 In NS Inj 10 ML @ 5 mls/hr NEB Q8H [facility] Rx#:[id number] Tube Feeding 168 / 168 Tube Irrigant 100 / 100 Water Bolus Amount 200 / 200 Output: Urine Amount (Catheter) 2099 Indwelling Urethral Catheter 2099 Other: Date of Last Bowel Movement 05/02/18 05/02/18 Result Diagrams: 05/04/18 05:00 05/04/18 05:00 Other Results: Laboratory Results - last 12 hr 1105/03/18 05/04/18 22:45 23:45 01:45 WBC RBC Hgb Hct MCV MCH MCHC RDW Plt Count MPV Neut % (Auto) Lymph % (Auto) [place] % (Auto) Eos % (Auto) Baso % (Auto) Neut # (Auto) Lymph # (Auto) [place] # (Auto) Eos # (Auto) Baso # (Auto) WBC Differential Differential Comment Sodium Potassium 3.4 L Chloride Carbon Dioxide Anion Gap BUN Creatinine Estimated GFR POC Glucose 138 H Random Glucose Calcium Phosphorus Magnesium Total Bilirubin AST ALT Alkaline Phosphatase Total Protein Albumin Vancomycin Trough 10.0 05/04/18 05/04/18 05/04/18 05:00 05:00 06:13 WBC 14.6 H RBC 3.28 L Hgb 9.8 L Hct 28.9 L MCV 88.0 MCH 29.8 MCHC 33.8 RDW 15.1 Plt Count 328 MPV 8.0 Neut % (Auto) 80.3 H Lymph % (Auto) 11.9 [place] % (Auto) 7.5 Eos % (Auto) 0.0 Baso % (Auto) 0.3 Neut # (Auto) 11.7 H Lymph # (Auto) 1.7 [place] # (Auto) 1.1 H Eos # (Auto) 0.0 Baso # (Auto) 0.0 WBC Differential . Differential Comment Auto diff final Sodium 147 H Potassium 3.6 Chloride 114 H Carbon Dioxide 24.1 Anion Gap 9 BUN 27 H Creatinine 0.86 Estimated GFR Greater than 89 POC Glucose 162 H Random Glucose 140 H Calcium 8.1 L Phosphorus 2.7 Magnesium 2.4 Total Bilirubin 0.4 AST 35 ALT 55 H Alkaline Phosphatase 94 Total Protein 6.7 Albumin 2.2 L Vancomycin Trough Imaging: Head CT 04/27/18 11:31 CONCLUSION: 1. Negative CT Head non contrast. . Abdomen/Pelvis CT 04/27/18 11:35 CONCLUSION: 1. Extensive atelectasis in both lower lobes. 2. The Stone catheter needs to be deflated and advanced into the bladder. The catheter is at the level of the prosthetic urethra. 3. No findings to indicate a bowel obstruction are seen. No free air free fluid is identified. Chest CT 04/27/18 11:35 CONCLUSION: 1. Consolidation both posterior lungs with air bronchograms. This could represent bilateral pneumonia or aspiration. Cervical Spine CT 04/27/18 11:36 CONCLUSION: 1. Negative trauma study. Lumbar Spine CT 04/27/18 11:59 CONCLUSION: 1. Negative for acute process 2. There is no evidence for vertebral compression. Head MRI 04/29/18 07:05 CONCLUSION: 1. Negative MRI of the brain. 2. Inflammatory process cannot be entirely excluded. 3. There are no infarcts identified. Chest X-Ray 05/02/18 00:00 CONCLUSION: No significant change. Right greater than left consolidation and small effusions again noted. Objective Remarks: GENERAL: Patient is 22 yo intubated . SKIN: Warm and dry. No rash HEAD: Normocephalic. EYES: No scleral icterus. No injection or drainage. NECK: Supple, trachea midline. No JVD or lymphadenopathy. CARDIOVASCULAR: Regular rate and rhythm without murmurs, gallops, or rubs. RESPIRATORY: Breath sounds equal bilaterally. No accessory muscle use. GASTROINTESTINAL: Abdomen soft, non-tender, nondistended. MUSCULOSKELETAL: No significant peripheral edema. Neuro: intubated, sedated Assessment and Plan - Assessment and Plan Plan: NEURO/PSYCH: Acute metabolic encephalopathy Suspected PCP overdose Suspected ethylene glycol overdose Suicide attempt -PCP was found near the patient ,continue supportive care -On Diprivan. Versed and Fentanyl infusion for sedation and vent synchrony -monitor neuro status. On Neuromuscular blockade( Nimbex)monitor train of 4 -Urine drug screen positive for benzos only -Psychiatric consult after neurological recovery -CT of the head negative. MRI of brain negative. Cannot rule out inflammatory process - EEG 04/30 and follow-up EEG 04/28 with no epileptic activity -Ammonia level: 21 -Neuro is following- Dr. Landon RESP: Acute respiratory failure Bibasilar aspiration pneumonitis Severe ARDS -Continue with vent support keep sats >92% -On PC/AC RR16, IP:30, IT:1.2, PEEP:14 and FIO2 50% from 100% -Ventilator bundle. -Bronchodilators ( DuoNeb, Mucomyst nebs Q4), Solumederol 80mg Q8 - Continue with Flolan nebs ( 30,000 ng/ml) -Check CXR/ABG today s/p bronch 05/02 thick secretions suctioned to clear. No evidence of EBL or bleeding. On rotoprone bed for proning CV: Hypotension Lactic acidosis -Monitor HR and BP keep MAP>65mmHg -Lactic acid 1.7 -On Lopressor 50mg BID -Echo 04/28: EF 60-65%, PASP 36mmHg GI: - IV famotidine -On tube feeds Jevity 1.5@75ml/hr Docusate serum/senna 1 tablet twice daily for bowel regimen. Lactulose 30 cc twice daily and MiraLAX 17 g twice daily. Increase free water 250ml Q6 Renal/FEN/: -Monitor renal function, I/O's, electrolytes replacement as needed -CT abd/pelvis: No findings to indicate a bowel obstruction are seen. No free air free fluid is identified. -Hold Lasix 40mg IV Q12, place on Bumex 0.5mg/hr ID: MSSA/group A beta strep pneumonia Continue with Zosyn, vanco, Azithromycin and monitor for signs of infections ( Fever, WBC) Follow up on blood no growth and sputum cxs. Staph aureus/MSSA and group A beta strep 05/02 BC: Coag positive staph ID is following HEME: Normocytic anemia Leukocytosis -Monitor CBC, coags ENDO/FEN: Hyperglycemia Hypernatremia -Electrolyte replacement per protocol -Sliding scale insulin PROPH: -Bilateral lower extremity SCDs. Subcu heparin/famotidine LINES: -Utilize peripheral IVs, [facility] central line placed in ED 04/27 Discussed with patient's father and updated him on his condition CC time 40 min
--- NOTE | 2018-05-04 07:54 | XR ---
EXAM DATE: 05/04/2018 7:50 AM EST AGE/SEX: 22 years / Male INDICATIONS: Evaluate for pulmonary disease. CLINICAL DATA: This is the patient's subsequent encounter. Patient reports that signs and symptoms h ave been present for 1 week and indicates a pain score of Nonresponsive. MEDICAL/SURGICAL HISTORY: None. Tonsillectomy. COMPARISON: [facility] [place], CHEST 1V SINGLE AP, 05/02/2018. . FINDINGS: A single AP view of the chest demonstrates consolidation right upper lobe. Left lung and right lower lobe relatively clear. Heart borderline enlarged. Endotracheal tube, nasogastric tube and left jugula r line are stable position.. The cardiomediastinal contours are unremarkable. Osseous structures ar e intact. CONCLUSION: 1. Right upper lobe consolidation. 2. Left lung clear. Electronically signed by: Rogerio Gann MD 05/04/2018 7:53 AM EST
[2018-05-04 08:03] LABS: ABG Base Excess -2.2 mmol/L (-2-2); ABG PCO2 26 mmHg (38-42); ABG PO2 166 mmHG (61-120)
[2018-05-04] MEDS: Pantoprazole Inj 40 MG Vial IV.PUSH SCH (08:08)
[2018-05-04] MEDS: Metoprolol Tartrate 50 MG Tablet PO SCH ×2 (08:09→20:25)
[2018-05-04] MEDS: Senna/Docusate Sodium 8.6/50 MG Tablet PO SCH ×2 (08:09→20:25)
[2018-05-04] MEDS: Polyethylene Glycol 3350 17 GM Packet PO SCH ×2 (08:09→20:25)
[2018-05-04] MEDS: fentaNYL 10 mcg/mL Premix Drip 2,500 MCG/250 ML BAG IV.SIG PRN ×2 (08:11→16:36)
[2018-05-04] MEDS: SODIUM CHLOR NEB SCH ×3 (08:35→22:22)
[2018-05-04] MEDS: Bumetanide Inj 25 MG/100 ML BAG IV.CONT SCH (08:35)
[2018-05-04] MEDS: EPOPROSTENOL NEB SCH ×3 (08:35→22:22)
[2018-05-04] MEDS ORDERED: Potassium Chlor 40 mEq Premix 40 MEQ/100 ML PIGGYBACK IV.SIG ONE (09:00)
[2018-05-04] MEDS: SODIUM CHLOR 0.9% IV.CONT PRN ×4 (13:32→22:27)
[2018-05-04] MEDS: CISATRACURIUM IV.CONT PRN ×4 (13:32→22:27)
--- NOTE | 2018-05-04 13:46 | P.PNWCN ---
Wound Care Nurse Consult Description: Received consult for wound management of sacral wound from Doctor Keith Communicated with: RN Dulce Mercado and Doctor Stacy Recommendation: Please cleanse buttock are gently with remedy barrier wipes. [place] deep tissue injury to sacrococcygeal area with Cavilon skin barrier film spray BID and PRN and leave open to air. Patient is currently on rotoprone, RN to [facility] wound care nurse for wound deterioration. Wound/Pressure Injury - Wound Sacrococcygeal area Wound Staging: DTI Wound Assessment: Ongoing Wound Type: Pressure Injury Is This a Chronic Wound: No Requested from Provider a Wound Care Consult: Yes Length (cm): 15.9 Width (cm): 5.9 Depth (cm): 0 (non blanchable purple intact skin) Wound Bed Appearance: Purple discoloration that is non blanchable to intact skin with blood filled bullae present Surrounding Tissue Temperature: Cool Drainage Amount: None Drainage Odor: No Odor Dressing Status: Open to Air Topical: Skin barrier film spray - Additional Information Patient seen today for wound management of sacral area. Patient is positioned to prone at this time on rotoprone bed. [employer] was able to observe purple discoloration to sacrococcygeal area. Upon assessment purple discoloration to Sacrococcygeal area is non blanchable and presents with purple bulla, indicating Deep Tissue Injury. Patient was found down at home for unknown period of time, prior to admission to hospital. Wound measurements and descriptions are noted above. DTI was left open to air and skin barrier film spray was applied over DTI to help keep DTI dry and intact. RN to [facility] wound care nurse for wound deterioration.
[2018-05-04] MEDS: Azithromycin Inj 500 MG in Sodium Chlor 0.9% Inj 250 ML IV.SIG SCH (19:58)
--- NOTE | 2018-05-04 20:00 | P.PNADD ---
Addendum to Inpatient Note Additional information: seen around 1900 full note to follow
[2018-05-05] MEDS: CISATRACURIUM IV.CONT PRN ×8 (00:59→22:44)
[2018-05-05] MEDS: SODIUM CHLOR 0.9% IV.CONT PRN ×8 (00:59→22:44)
[2018-05-05] MEDS: Propofol 1000 mg/100 ml Inj 1,000 MG/100 ML BOTTLE IV.CONT PRN ×13 (01:00→23:48)
[2018-05-05] MEDS: Midazolam 50 MG/50 ML Inj 50 MG/50 ML BAG IV.CONT PRN ×5 (02:22→23:00)
[2018-05-05] MEDS: fentaNYL 10 mcg/mL Premix Drip 2,500 MCG/250 ML BAG IV.SIG PRN ×3 (02:23→21:39)
[2018-05-05] MEDS: Piperacil/Tazo 4.5 GM Premix 4.5 GM/100 ML BAG IV.SIG SCH ×2 (02:48→08:23)
[2018-05-05] MEDS: Heparin - SQ 10,000 UNITS/ML Vial SQ SCH ×2 (05:35→17:12)
[2018-05-05 05:39] LABS: Baso % (Auto) 0.2 % (0.0-2.0); Hematocrit 28.7 % (39.0-51.0); Hemoglobin 9.5 gm/dL (13.0-17.0); Lymph # (Auto) 1.1 th/mm3 (1.0-4.8); Lymph % (Auto) 9.6 % (9.0-44.0); Mean Corpuscular HGB Conc 32.9 % (32.0-36.0); Mean Corpuscular Hemoglobin 29.2 pg (27.0-34.0); Mean Corpuscular Volume 88.9 fL (80.0-100.0); Mean Platelet Volume 7.7 fL (7.0-11.0); Mono # (Auto) 0.9 th/mm3 (0.0-0.9); Neut # (Auto) 9.5 th/mm3 (1.8-7.7); Neut % (Auto) 82.2 % (16.0-70.0); Platelet Count 331 th/mm3 (150-450); Red Blood Count 3.23 mil/mm3 (4.50-5.90); Red Cell Distribution Width 14.8 % (11.6-17.2); White Blood Count 11.6 th/mm3 (4.0-11.0)
[2018-05-05] MEDS: MethylPREDNISolone Sod Succinate Inj 40 MG/ML Vial IV.PUSH SCH ×3 (05:40→21:38)
[2018-05-05 06:04] LABS: Alanine Aminotransferase 58 U/L (9-52); Albumin 2.1 g/dL (3.4-5.0); Alkaline Phosphatase 82 U/L (45-117); Anion Gap 9 meq/L (5-15); Aspartate Aminotransferase 24 U/L (15-39); Carbon Dioxide 29.1 meq/L (21.0-32.0); Chloride 103 meq/L (98-107); Glomerular Filtration Rate Greater Than 89 mL/min (>89); Glucose,Random 181 mg/dL (74-106); Magnesium 2.2 mg/dL (1.5-2.5); Phosphorus 4.1 mg/dL (2.5-4.9); Potassium 4.2 meq/L (3.5-5.1); Sodium 141 meq/L (136-145); Total Protein 6.5 g/dL (6.4-8.2)
[2018-05-05 06:22] LABS: Blood Urea Nitrogen 16 mg/dL (7-18)
[2018-05-05] MEDS: Insulin NovoLOG Aspart Correctional Sugar Inj SQ SCH ×3 (06:22→17:12)
--- NOTE | 2018-05-05 07:01 | P.PNCC ---
Subjective Subjective Remarks/Hospital Course: Patient is approximately 22 years old male obese, was found on the floor by a family member, downtime is unknown. EMS was called, patient was given Narcan with no response, he was intubated on the scene, apparently GCS 3. Found bag of PCP next to the patient. Patient has history of psychiatric disorder ? bipolar disorder and I am told he has attempted suicide in the past. There is also mention about suspicion of ethylene glycol ingestion, but his serum osmolality is 307 his osmolar gap is only 13. Bicarb is 26, ethylene glycol seems unlikely. Ethanol was negative urine drug screen only positive for benzo. I evaluated the patient in the ICU at the [facility]. Patient had a CT of the head which was negative. Rest of the workup unremarkable except for bibasilar atelectasis/aspiration pneumonia. Patient's white count is elevated at 17.1, glucose is 232 lactic acid was 2.8. He received multiple fluid boluses. At this time he is not on any sedation but remains unresponsive no response to deep pain 04/28 Patient remains intubated off sedation unresponsive. Afebrile. 04/29: MRI of the brain revealed no acute intracranial findings. EEG to be performed tomorrow. More arousable and moves all 4 extremities but not following commands. Placed on dexamethasone E drip. 2 feeds will be restarted SUBJECTIVE: 04/30: T-max 101.4. Currently afebrile. No bowel movement since admission. Arousable and follows simple commands late last night but currently on sedation for agitation. Increased FiO2 noted. Will attempt to gently diurese and continue antibiotics for pansensitive staph aureus/group a beta strep sputum 05/01 Patient is sedated with Fentanyl, Diprivan and intubated. T:101.1 at 5am. Placed on APRV overnight. 05/02 Patient is sedated with Diprivan and Fentanyl drips. Tmax 101.3, on PC/AC with PEEP:12, FIO2 80%, IP:30 05/03 Patient is heavily sedated with Diprivan, Fentanyl and Versed . On PC/AC with PEEP: 14 and FIO2 100$ sats 92%, CXR yesterday showed diffuse b/l pulm infiltrates, started on Flolan nebs. Had Tmax 102.6 last night. 05/04 Patient was placed on rotoprone bed yesterday sedated with Diprivan, Versed and Fentanyl infusion and on neuromuscular blockade( Nimbex) On PC/AC His FIO2 requirements is better now on FIO2:50% from 100% with PEEP:14. T:102.6 05/05 Patient remains intubated and sedated on Bumex drio0.5mg/hr, T:99.7 at 3am. On PC/AC with PEEP:1 and FIO2 60%- sats 95%. Objective Vital Signs / I&O: Vital Signs 05/04/18 07:00 05/04/18 08:00 05/04/18 09:00 Temperature 101.7 F H Pulse Rate 93 H 101 H 98 H Respiratory Rate 24 Pulse Oximetry 93 L 94 L 93 L 05/04/18 09:45 05/04/18 10:00 05/04/18 11:00 Temperature Pulse Rate 92 H 99 H Respiratory Rate 12 12 25 H Pulse Oximetry 94 L 94 L 94 L 05/04/18 11:59 05/04/18 12:00 05/04/18 13:00 Temperature 100.8 F H Pulse Rate 90 88 Respiratory Rate 12 14 Pulse Oximetry 94 L 94 L 94 L 05/04/18 14:00 05/04/18 14:16 05/04/18 14:17 Temperature Pulse Rate 99 H 89 Respiratory Rate 12 12 Pulse Oximetry 94 L 95 05/04/18 15:00 05/04/18 16:00 05/04/18 17:00 Temperature 100.2 F H Pulse Rate 91 H 95 H 129 H Respiratory Rate Pulse Oximetry 95 93 L 91 L 05/04/18 18:00 05/04/18 19:00 05/04/18 19:25 Temperature Pulse Rate 129 H 120 H Respiratory Rate 12 Pulse Oximetry 96 96 95 05/04/18 19:35 05/04/18 20:00 05/04/18 21:00 Temperature 98.4 F Pulse Rate 102 H 105 H 104 H Respiratory Rate 12 Pulse Oximetry 98 96 05/04/18 22:00 05/04/18 23:00 05/04/18 23:20 Temperature 98.8 F 99.3 F Pulse Rate 92 H 91 H Respiratory Rate 12 Pulse Oximetry 97 96 95 05/04/18 23:30 05/05/18 00:00 05/05/18 01:00 Temperature 99.3 F 99.7 F H Pulse Rate 90 91 H 93 H Respiratory Rate 12 Pulse Oximetry 96 96 05/05/18 02:00 05/05/18 03:00 05/05/18 03:32 Temperature 99.7 F H 99.7 F H Pulse Rate 116 H 104 H 105 H Respiratory Rate 12 Pulse Oximetry 97 96 97 05/05/18 04:00 Temperature 99.0 F Pulse Rate 101 H Respiratory Rate Pulse Oximetry 97 Intake & Output 05/04/18 05/04/18 05/05/18 06:59 18:59 06:59 Intake Total 4580 / 4580 4667 / 4667 4992 / 4992 Output Total 2900 / 2900 5550 / 5550 5525 / 5525 Balance 1680 / 1680 -883 / -883 -533 / -533 Weight 179.1 kg Intake: IV 4080 / 4080 3649 / 3649 3900 / 3900 Bumex Inj 25 mg In 100 ml @ 1 40 / 40 MG/HR 4 mls/hr IV.CONT .Q24H [facility] Rx#:[id number] Nimbex Inj 200 MG In NS Inj 480 1500 / 1500 1500 / 1500 2500 / 2500 ML @ 1 MCG/KG/MIN 27.6 mls/hr IV.CONT TITRATE PRN Rx#: [id number] Versed Inj 50 mg In 50 ml @ 2 100 / 100 150 / 150 100 / 100 MG/HR 2 mls/hr IV.CONT TITRATE PRN Rx#:[id number] Diprivan 1000 mg/100 ml Inj 1, 600 / 600 700 / 700 500 / 500 000 mg In 100 ml @ 5 MCG/KG/MIN 4.77 mls/hr IV.CONT TITRATE PRN Rx#:[id number] Azithromycin Inj 500 MG In NS 250 / 250 250 / 250 Inj 250 ML @ 250 mls/hr IV.SIG Q24H [facility] Rx#:[id number] Zosyn 4.5 GM Premix 4.5 gm In 200 / 200 200 / 200 200 / 200 100 ml @ 200 mls/hr IV.SIG Q6H [facility] Rx#:[id number] KCl 40 mEq Premix Inj 40 meq In 100 / 100 100 / 100 100 ml @ 25 mls/hr IV.SIG NOW ONE Rx#:[id number] Vancomycin Inj 2,000 MG In NS 1040 / 1040 575 / 575 Inj 500 ML @ 250 mls/hr IV.SIG Q8H [facility] Rx#:[id number] fentaNYL 10 mcg/mL Premix Drip 250 / 250 324 / 324 250 / 250 2,500 mcg In 250 ml @ 50 MCG/HR 5 mls/hr IV.SIG TITRATE PRN Rx #:[id number] Flolan (30,000 ng/mL) Neb 90 ML 100 / 100 100 / 100 In NS Inj 10 ML @ 5 mls/hr NEB Q8H [facility] Rx#:[id number] Tube Feeding 458 / 458 592 / 592 Tube Irrigant 100 / 100 60 / 60 Water Bolus Amount 400 / 400 500 / 500 500 / 500 Output: Stool 0 / 0 Urine Amount (Catheter) 2900 / 2900 5550 / 5550 5525 / 5525 Indwelling Urethral Catheter 2900 / 2900 5550 / 5550 5525 / 5525 Other: Date of Last Bowel Movement 05/02/18 05/05/18 # Incontinent Bowel Movements 1 Result Diagrams: 05/05/18 04:30 05/05/18 04:30 Other Results: Laboratory Results - last 12 hr 05/04/18 05/04/18 05/05/18 19:50 23:14 04:30 WBC 11.6 H RBC 3.23 L Hgb 9.5 L Hct 28.7 L MCV 88.9 MCH 29.2 MCHC 32.9 RDW 14.8 Plt Count 331 MPV 7.7 Neut % (Auto) 82.2 H Lymph % (Auto) 9.6 [place] % (Auto) 8.0 Eos % (Auto) 0.0 Baso % (Auto) 0.2 Neut # (Auto) 9.5 H Lymph # (Auto) 1.1 [place] # (Auto) 0.9 Eos # (Auto) 0.0 Baso # (Auto) 0.0 WBC Differential . Differential Comment Auto diff final Sodium Potassium 3.9 Chloride Carbon Dioxide Anion Gap BUN Creatinine Estimated GFR POC Glucose 215 H Random Glucose Calcium Phosphorus Magnesium Total Bilirubin AST ALT Alkaline Phosphatase Total Protein Albumin 05/05/18 04:30 WBC RBC Hgb Hct MCV MCH MCHC RDW Plt Count MPV Neut % (Auto) Lymph % (Auto) [place] % (Auto) Eos % (Auto) Baso % (Auto) Neut # (Auto) Lymph # (Auto) [place] # (Auto) Eos # (Auto) Baso # (Auto) WBC Differential Differential Comment Sodium 141 Potassium 4.2 Chloride 103 D Carbon Dioxide 29.1 Anion Gap 9 BUN 16 Creatinine 0.69 Estimated GFR Greater than 89 POC Glucose Random Glucose 181 H Calcium 8.0 L Phosphorus 4.1 D Magnesium 2.2 Total Bilirubin 0.4 AST 24 ALT 58 H Alkaline Phosphatase 82 Total Protein 6.5 Albumin 2.1 L Imaging: Head CT 04/27/18 11:31 CONCLUSION: 1. Negative CT Head non contrast. . Abdomen/Pelvis CT 04/27/18 11:35 CONCLUSION: 1. Extensive atelectasis in both lower lobes. 2. The Stone catheter needs to be deflated and advanced into the bladder. The catheter is at the level of the prosthetic urethra. 3. No findings to indicate a bowel obstruction are seen. No free air free fluid is identified. Chest CT 04/27/18 11:35 CONCLUSION: 1. Consolidation both posterior lungs with air bronchograms. This could represent bilateral pneumonia or aspiration. Cervical Spine CT 04/27/18 11:36 CONCLUSION: 1. Negative trauma study. Lumbar Spine CT 04/27/18 11:59 CONCLUSION: 1. Negative for acute process 2. There is no evidence for vertebral compression. Head MRI 04/29/18 07:05 CONCLUSION: 1. Negative MRI of the brain. 2. Inflammatory process cannot be entirely excluded. 3. There are no infarcts identified. Chest X-Ray 05/04/18 06:59 CONCLUSION: 1. Right upper lobe consolidation. 2. Left lung clear. Objective Remarks: GENERAL: Patient is 22 yo intubated . SKIN: Warm and dry. No rash HEAD: Normocephalic. EYES: No scleral icterus. No injection or drainage. NECK: Supple, trachea midline. No JVD or lymphadenopathy. CARDIOVASCULAR: Regular rate and rhythm without murmurs, gallops, or rubs. RESPIRATORY: Breath sounds equal bilaterally. No accessory muscle use. GASTROINTESTINAL: Abdomen soft, non-tender, nondistended. MUSCULOSKELETAL: No significant peripheral edema. Neuro: intubated, sedated Assessment and Plan - Assessment and Plan Plan: NEURO/PSYCH: Acute metabolic encephalopathy Suspected PCP overdose Suspected ethylene glycol overdose Suicide attempt -PCP was found near the patient ,continue supportive care -On Diprivan. Versed and Fentanyl infusion for sedation and vent synchrony -monitor neuro status. On Neuromuscular blockade( Nimbex)monitor train of 4 -Urine drug screen positive for benzos only -Psychiatric consult after neurological recovery -CT of the head negative. MRI of brain negative. Cannot rule out inflammatory process - EEG 04/30 and follow-up EEG 04/28 with no epileptic activity -Ammonia level: 21 -Neuro is following- Dr. Landon RESP: Acute respiratory failure Bibasilar aspiration pneumonitis Severe ARDS -Continue with vent support keep sats >92% -On PC/AC RR16, IP:30, IT:1.2, PEEP:12 and FIO2 60% decrease FIO2 50% -Ventilator bundle. -Bronchodilators ( DuoNeb, Mucomyst nebs Q4), Solumederol 80mg Q8 - Continue with Flolan nebs ( 30,000 ng/ml) -CXR yesterday RUL consolidation, left lung clear s/p bronch 05/02 thick secretions suctioned to clear. No evidence of EBL or bleeding. On rotoprone bed for proning CV: Hypotension Lactic acidosis -Monitor HR and BP keep MAP>65mmHg -Lactic acid 1.7 -On Lopressor 50mg BID -Echo 04/28: EF 60-65%, PASP 36mmHg GI: - IV famotidine -On tube feeds Jevity 1.5 will goal rate 75ml/hr Docusate serum/senna 1 tablet twice daily for bowel regimen. Lactulose 30 cc twice daily and MiraLAX 17 g twice daily. free water 250ml Q12 Renal/FEN/: -Monitor renal function, I/O's, electrolytes replacement as needed -CT abd/pelvis: No findings to indicate a bowel obstruction are seen. No free air free fluid is identified. -On Bumex 0.5mg/hr ID: MSSA/group A beta strep pneumonia Continue with Zosyn, Azithromycin and monitor for signs of infections ( Fever, WBC) Follow up on blood no growth and sputum cxs. Staph aureus/MSSA and group A beta strep 05/02 BC: Coag positive staph ID is following HEME: Normocytic anemia Leukocytosis -Monitor CBC, coags ENDO/FEN: Hyperglycemia Hypernatremia -Electrolyte replacement per protocol -Sliding scale insulin PROPH: -Bilateral lower extremity SCDs. Subcu heparin/famotidine LINES: -Utilize peripheral IVs, [facility] central line placed in ED 04/27 Discussed with patient's father and updated him on his condition CC time 40 min
--- NOTE | 2018-05-05 07:37 | P.PNID ---
Subjective Remarks: Delayed entry pt was seen yday 05/04 dw RN afebrile off pressors On prone ventilation Antibiotics: zosyn azithro vanco Allergies/Adverse Reactions: Allergies shellfish derived Allergy (Verified 04/29/18 13:12) Anaphylaxis No Known Allergies Allergy (Uncoded 04/29/18 13:12) Objective Vital Signs 05/04/18 08:00 05/04/18 09:00 05/04/18 09:45 Temperature 101.7 F H Pulse Rate 101 H 98 H Respiratory Rate 24 12 Pulse Oximetry 94 L 93 L 94 L 05/04/18 10:00 05/04/18 11:00 05/04/18 11:59 Temperature Pulse Rate 92 H 99 H Respiratory Rate 12 25 H 12 Pulse Oximetry 94 L 94 L 94 L 05/04/18 12:00 05/04/18 13:00 05/04/18 14:00 Temperature 100.8 F H Pulse Rate 90 88 99 H Respiratory Rate 14 Pulse Oximetry 94 L 94 L 94 L 05/04/18 14:16 05/04/18 14:17 05/04/18 15:00 Temperature Pulse Rate 89 91 H Respiratory Rate 12 12 Pulse Oximetry 95 95 05/04/18 16:00 05/04/18 17:00 05/04/18 18:00 Temperature 100.2 F H Pulse Rate 95 H 129 H 129 H Respiratory Rate Pulse Oximetry 93 L 91 L 96 05/04/18 19:00 05/04/18 19:25 05/04/18 19:35 Temperature Pulse Rate 120 H 102 H Respiratory Rate 12 12 Pulse Oximetry 96 95 05/04/18 20:00 05/04/18 21:00 05/04/18 22:00 Temperature 98.4 F 98.8 F Pulse Rate 105 H 104 H 92 H Respiratory Rate Pulse Oximetry 98 96 97 05/04/18 23:00 05/04/18 23:20 05/04/18 23:30 Temperature 99.3 F Pulse Rate 91 H 90 Respiratory Rate 12 12 Pulse Oximetry 96 95 05/05/18 00:00 05/05/18 01:00 05/05/18 02:00 Temperature 99.3 F 99.7 F H 99.7 F H Pulse Rate 91 H 93 H 116 H Respiratory Rate Pulse Oximetry 96 96 97 05/05/18 03:00 05/05/18 03:32 05/05/18 04:00 Temperature 99.7 F H 99.0 F Pulse Rate 104 H 105 H 101 H Respiratory Rate 12 Pulse Oximetry 96 97 97 Intake & Output 05/04/18 05/05/18 05/05/18 18:59 06:59 18:59 Intake Total 4667 / 4667 4992 / 4992 150 / 150 Output Total 5550 / 5550 5525 / 5525 Balance -883 / -883 -533 / -533 150 / 150 Weight 179.1 kg Intake: IV 3649 / 3649 3900 / 3900 150 / 150 Nimbex Inj 200 MG In NS Inj 480 1500 / 1500 2500 / 2500 ML @ 1 MCG/KG/MIN 27.6 mls/hr IV.CONT TITRATE PRN Rx#: [id number] Versed Inj 50 mg In 50 ml @ 2 150 / 150 100 / 100 50 / 50 MG/HR 2 mls/hr IV.CONT TITRATE PRN Rx#:[id number] Diprivan 1000 mg/100 ml Inj 1, 700 / 700 500 / 500 100 / 100 000 mg In 100 ml @ 5 MCG/KG/MIN 4.77 mls/hr IV.CONT TITRATE PRN Rx#:[id number] Azithromycin Inj 500 MG In NS 250 / 250 Inj 250 ML @ 250 mls/hr IV.SIG Q24H [facility] Rx#:[id number] Zosyn 4.5 GM Premix 4.5 gm In 200 / 200 200 / 200 100 ml @ 200 mls/hr IV.SIG Q6H [facility] Rx#:[id number] KCl 40 mEq Premix Inj 40 meq In 100 / 100 100 ml @ 25 mls/hr IV.SIG NOW ONE Rx#:[id number] Vancomycin Inj 2,000 MG In NS 575 / 575 Inj 500 ML @ 250 mls/hr IV.SIG Q8H [facility] Rx#:[id number] fentaNYL 10 mcg/mL Premix Drip 324 / 324 250 / 250 2,500 mcg In 250 ml @ 50 MCG/HR 5 mls/hr IV.SIG TITRATE PRN Rx #:[id number] Flolan (30,000 ng/mL) Neb 90 ML 100 / 100 100 / 100 In NS Inj 10 ML @ 5 mls/hr NEB Q8H [facility] Rx#:[id number] Tube Feeding 458 / 458 592 / 592 Tube Irrigant 60 / 60 Water Bolus Amount 500 / 500 500 / 500 Output: Stool 0 / 0 Urine Amount (Catheter) 4020 / 5550 5525 / 5525 Indwelling Urethral Catheter 9060 / 5550 5525 / 5525 Other: Date of Last Bowel Movement 05/05/18 # Incontinent Bowel Movements 1 05/02/18 17:30 Bronchial - Bronchial Gram Stain - Final 05/02/18 17:30 Bronchial - Bronchial Bronchial Culture - Final Staphylococcus aureus 05/03/18 10:10 Blood - Peripheral Aerobic Blood Culture - Preliminary No growth in 1 day 05/03/18 10:10 Blood - Peripheral Anaerobic Blood Culture - Preliminary No growth in 1 day 05/03/18 11:20 Blood - Peripheral Aerobic Blood Culture - Preliminary No growth in 1 day 05/03/18 11:20 Blood - Peripheral Anaerobic Blood Culture - Preliminary No growth in 1 day 05/01/18 14:27 Blood - Peripheral Aerobic Blood Culture - Preliminary No growth in 3 days 05/01/18 14:27 Blood - Peripheral Anaerobic Blood Culture - Preliminary No growth in 3 days 05/01/18 14:20 Blood - Peripheral Aerobic Blood Culture - Preliminary No growth in 3 days 05/01/18 14:20 Blood - Peripheral Anaerobic Blood Culture - Preliminary No growth in 3 days 05/01/18 03:00 Sputum - Endotracheal Gram Stain - Final 05/01/18 03:00 Sputum - Endotracheal Sputum Culture - Final Staphylococcus aureus 04/27/18 11:55 Blood - Line Aerobic Blood Culture - Final No growth in 5 days 04/27/18 11:55 Blood - Line Anaerobic Blood Culture - Final No growth in 5 days 04/27/18 12:00 Blood - Line Aerobic Blood Culture - Final No growth in 5 days 04/27/18 12:00 Blood - Line Anaerobic Blood Culture - Final No growth in 5 days Lab - Hematology Results 05/04/18 05/05/18 05:00 04:30 WBC 14.6 H 11.6 H RBC 3.28 L 3.23 L Hgb 9.8 L 9.5 L Hct 28.9 L 28.7 L MCV 88.0 88.9 MCH 29.8 29.2 MCHC 33.8 32.9 RDW 15.1 14.8 Plt Count 328 331 MPV 8.0 7.7 Neut % (Auto) 80.3 H 82.2 H Lymph % (Auto) 11.9 9.6 [place] % (Auto) 7.5 8.0 Eos % (Auto) 0.0 0.0 Baso % (Auto) 0.3 0.2 Neut # (Auto) 11.7 H 9.5 H Lymph # (Auto) 1.7 1.1 [place] # (Auto) 1.1 H 0.9 Eos # (Auto) 0.0 0.0 Baso # (Auto) 0.0 0.0 WBC Differential . . Differential Comment Auto diff final Auto diff final Lab - Chemistry Results 05/03/18 05/03/18 05/03/18 07:53 11:35 11:49 Sodium Potassium 3.8 Chloride Carbon Dioxide Anion Gap BUN Creatinine Estimated GFR POC Glucose 177 H 152 H Random Glucose Calcium Phosphorus Magnesium Total Bilirubin AST ALT Alkaline Phosphatase Total Protein Albumin 05/03/18 05/03/18 05/03/18 18:05 22:45 23:45 Sodium Potassium 3.4 L Chloride Carbon Dioxide Anion Gap BUN Creatinine Estimated GFR POC Glucose 164 H 138 H Random Glucose Calcium Phosphorus Magnesium Total Bilirubin AST ALT Alkaline Phosphatase Total Protein Albumin 05/04/18 05/04/18 05/04/18 05:00 06:13 11:19 Sodium 147 H Potassium 3.6 Chloride 114 H Carbon Dioxide 24.1 Anion Gap 9 BUN 27 H Creatinine 0.86 Estimated GFR Greater than 89 POC Glucose 162 H 146 H Random Glucose 140 H Calcium 8.1 L Phosphorus 2.7 Magnesium 2.4 Total Bilirubin 0.4 AST 35 ALT 55 H Alkaline Phosphatase 94 Total Protein 6.7 Albumin 2.2 L 05/04/18 05/04/18 05/04/18 13:22 17:25 19:50 Sodium Potassium 4.2 3.9 Chloride Carbon Dioxide Anion Gap BUN Creatinine Estimated GFR POC Glucose 158 H Random Glucose Calcium Phosphorus Magnesium Total Bilirubin AST ALT Alkaline Phosphatase Total Protein Albumin 05/04/18 05/05/18 23:14 04:30 Sodium 141 Potassium 4.2 Chloride 103 D Carbon Dioxide 29.1 Anion Gap 9 BUN 16 Creatinine 0.69 Estimated GFR Greater than 89 POC Glucose 215 H Random Glucose 181 H Calcium 8.0 L Phosphorus 4.1 D Magnesium 2.2 Total Bilirubin 0.4 AST 24 ALT 58 H Alkaline Phosphatase 82 Total Protein 6.5 Albumin 2.1 L Imaging: ITS Impressions Head CT 04/27/18 11:31 CONCLUSION: 1. Negative CT Head non contrast. . Abdomen/Pelvis CT 04/27/18 11:35 CONCLUSION: 1. Extensive atelectasis in both lower lobes. 2. The Stone catheter needs to be deflated and advanced into the bladder. The catheter is at the level of the prosthetic urethra. 3. No findings to indicate a bowel obstruction are seen. No free air free fluid is identified. Chest CT 04/27/18 11:35 CONCLUSION: 1. Consolidation both posterior lungs with air bronchograms. This could represent bilateral pneumonia or aspiration. Cervical Spine CT 04/27/18 11:36 CONCLUSION: 1. Negative trauma study. Lumbar Spine CT 04/27/18 11:59 CONCLUSION: 1. Negative for acute process 2. There is no evidence for vertebral compression. Head MRI 04/29/18 07:05 CONCLUSION: 1. Negative MRI of the brain. 2. Inflammatory process cannot be entirely excluded. 3. There are no infarcts identified. Chest X-Ray 05/04/18 06:59 CONCLUSION: 1. Right upper lobe consolidation. 2. Left lung clear. Physical Exam: Pt is sedated and paralysed Exam was very limited 2/2 pt's prone position Lungs sounded fairly clear posteriorly Skin w/o rash on visualised areas Assessment and Plan - Plan PNA, probably aspiration Acute VDRF Growing MSSA, beta strep from the sputum Morbid obesity with likley obesity- hypoventilation sd cont zosyn dc vancomycin add azithro for atypical coverage dw RN @ b/s
[2018-05-05] MEDS: Senna/Docusate Sodium 8.6/50 MG Tablet PO SCH ×2 (08:23→20:19)
[2018-05-05] MEDS: Polyethylene Glycol 3350 17 GM Packet PO SCH ×2 (08:23→20:20)
[2018-05-05] MEDS: Pantoprazole Inj 40 MG Vial IV.PUSH SCH (08:24)
[2018-05-05] MEDS: Metoprolol Tartrate 50 MG Tablet PO SCH ×2 (08:24→20:20)
[2018-05-05] MEDS: Artificial Tears Opth Drops 15 ML Bottle EACH EYE SCH ×2 (08:44→16:08)
--- NOTE | 2018-05-05 08:47 | P.PNNEU ---
Subjective Subjective Comments: No acute event Active Medications: Active Medications Acetaminophen (Tylenol Liq) 650 mg PO Q6H PRN PRN Reason: FEVER Last Admin: 05/04/18 03:55 Dose: 650 mg Acetylcysteine (Mucomyst 10% Neb) 2 ml NEB Q4HR NEB [facility] Last Admin: 05/05/18 08:18 Dose: 2 ml Al Hydroxide/Mg Hydroxide (Milk Of Magnesia Liq) 30 ml PO Q12H PRN PRN Reason: Mild Constipation Albuterol (Albuterol Neb (Prn)) 2.5 mg NEB Q2HR NEB PRN PRN Reason: SHORTNESS OF BREATH/WHEEZING Albuterol (Duoneb Neb (Susan)) 1 ampul NEB Q4HR NEB [facility] Last Admin: 05/05/18 08:18 Dose: 1 ampul Artificial Tears (Tears Naturale Opth Drops) 1 drop EACH EYE Q8H [facility] Last Admin: 05/05/18 08:44 Dose: 1 drop Bisacodyl (Dulcolax Supp) 10 mg RECTAL DAILY PRN PRN Reason: SEVERE CONSITIPATION Dextrose (D50w Vial) 50 ml IV.PUSH UNSCH PRN PRN Reason: PER HYPOGLYCEMIA PROTOCOL Glucagon (Glucagon Inj) 1 mg OTHER PRN PRN PRN Reason: for Hypoglycemia Protocol Heparin Sodium (Porcine) (Heparin Inj) 5,000 units SQ Q12H [facility] Last Admin: 05/05/18 05:35 Dose: 5,000 units Magnesium Sulfate 4 gm/ Sodium (Chloride) 100 mls @ 50 mls/hr IV.SIG UNSCH PRN PRN Reason: For Magnesium 0.9 - 1.1 mg/dL Potassium Chloride (Kcl 40 Meq Premix Inj) 40 meq in 100 mls @ 25 mls/hr IV.SIG Q2H PRN PRN Reason: For Potassium 2.8 - 3.2 mEq/L Last Infusion: 05/02/18 22:49 Dose: Infused Potassium Chloride (Kcl 20 Meq Premix Inj) 20 meq in 100 mls @ 50 mls/hr IV.SIG Q2H PRN PRN Reason: For Potassium 3.3 - 3.5 mEq/L Potassium Chloride (Kcl 40 Meq Premix Inj) 40 meq in 100 mls @ 25 mls/hr IV.SIG UNSCH PRN PRN Reason: For Potassium 3.3 - 3.5 mEq/L Last Infusion: 05/04/18 05:27 Dose: Infused Potassium Chloride (Kcl 20 Meq Premix Inj) 20 meq in 100 mls @ 50 mls/hr IV.SIG Q2H PRN PRN Reason: For Potassium 2.8 - 3.2 mEq/L Potassium Phosphate 30 mmol/ (Sodium Chloride) 260 mls @ 42 mls/hr IV.SIG UNSCH PRN PRN Reason: SEE LABEL COMMENTS Magnesium Sulfate 2 gm/ Sodium (Chloride) 100 mls @ 50 mls/hr IV.SIG UNSCH PRN PRN Reason: For Magnesium 1.2 - 1.6 mg/dL Sodium Phosphate 30 mmol/ (Sodium Chloride) 260 mls @ 42 mls/hr IV.SIG UNSCH PRN PRN Reason: For Phosphorus < 2.5 mg/dL Propofol (Diprivan 1000 Mg/100 Ml Inj) 1,000 mg in 100 mls @ 4.77 mls/hr IV.CONT TITRATE PRN; Protocol PRN Reason: Per Protocol Last Admin: 05/05/18 08:25 Dose: 50 mcg/kg/min, 47.7 mls/hr Fentanyl (Fentanyl 10 Mcg/Ml Premix Drip) 2,500 mcg in 250 mls @ 5 mls/hr IV.SIG TITRATE PRN; Protocol PRN Reason: Per Protocol Last Admin: 05/05/18 02:23 Dose: 250 mcg/hr, 25 mls/hr Piperacillin/Tazobactam/Dextrose (Zosyn 4.5 Gm Premix) 4.5 gm in 100 mls @ 200 mls/hr IV.SIG Q6H [facility] Last Admin: 05/05/18 08:23 Dose: 200 mls/hr Dexmedetomidine HCl 200 mcg/ (Sodium Chloride) 50 mls @ 9.01 mls/hr IV.CONT TITRATE PRN; Protocol PRN Reason: Per Protocol Last Titration: 04/30/18 22:04 Dose: Infused Midazolam HCl (Versed Inj) 50 mg in 50 mls @ 2 mls/hr IV.CONT TITRATE PRN; Protocol PRN Reason: Per Protocol Last Admin: 05/05/18 07:28 Dose: 10 mg/hr, 10 mls/hr Epoprostenol Sodium 90 ml/ (Sodium Chloride) 100 mls @ 5 mls/hr NEB Q8H [facility] Last Admin: 05/04/18 22:22 Dose: 5 mls/hr Azithromycin 500 mg/ Sodium (Chloride) 250 mls @ 250 mls/hr IV.SIG Q24H [facility] Last Infusion: 05/04/18 21:13 Dose: Infused Bumetanide (Bumex Inj) 25 mg in 100 mls @ 2 mls/hr IV.CONT .Q24H [facility] Last Admin: 05/04/18 08:35 Dose: 0.5 mg/hr, 2 mls/hr Cisatracurium Besylate 200 mg/ (Sodium Chloride) 500 mls @ 27.6 mls/hr IV.CONT TITRATE PRN; Protocol PRN Reason: Per Protocol Last Admin: 05/05/18 06:22 Dose: 7 mcg/kg/min, 193.2 mls/hr Insulin Aspart (Novolog Insulin Correctional Sugar Inj) 0 unit SQ Q6HR [facility]; Protocol Last Admin: 05/05/18 06:22 Dose: 2 unit Lactulose (Lactulose Liq) 30 ml PO DAILY PRN PRN Reason: SEVERE CONSITIPATION Lactulose (Lactulose Liq) 30 ml PO BID [facility] Last Admin: 05/05/18 08:23 Dose: 30 ml Magnesium Oxide (Mag-Ox) 800 mg PO UNSCH PRN PRN Reason: For Magnesium 1.2 - 1.6 mg/dL Methylprednisolone Sodium Succinate (Solumedrol Inj) 80 mg IV.PUSH Q8HR [facility] Last Admin: 05/05/18 05:40 Dose: 80 mg Metoprolol Tartrate (Lopressor) 50 mg PO BID [facility] Last Admin: 05/05/18 08:24 Dose: 50 mg Ondansetron HCl (Zofran Inj) 4 mg IV.PUSH Q6H PRN PRN Reason: NAUSEA OR VOMITING Pantoprazole Sodium (Protonix Inj) 40 mg IV.PUSH DAILY [facility] Last Admin: 05/05/18 08:24 Dose: 40 mg Pharmacy Profile Note (Vancomycin Consult Pharmacy) 1 each OTHER UNSCH PRN PRN Reason: Pharmacy to dose Polyethylene Glycol (Miralax) 17 gm PO BID [facility] Last Admin: 05/05/18 08:23 Dose: 17 gm Potassium Bicarb/Potassium Chloride (K-Lyte Cl Eff) 50 meq PO UNSCH PRN PRN Reason: For Potassium 3.3 - 3.5 mEq/L Potassium Phosphate (K-Phos Original) 2,000 mg PO Q4H PRN PRN Reason: Phosphorus Less Than 2.5 mg/dL Potassium Phosphate (K-Phos Original) 2,000 mg PO UNSCH PRN PRN Reason: SEE LABEL COMMENTS Senna/Docusate Sodium (Jemima-Colace) 1 tab PO BID [facility] Last Admin: 05/05/18 08:23 Dose: 1 tab Sennosides (Senokot) 17.2 mg PO Q12H PRN PRN Reason: Moderate Constipation Sodium Chloride (Ns Flush) 2 ml IV.FLUSH BID [facility] Last Admin: 05/05/18 08:24 Dose: 2 ml Sodium Chloride (Ns Flush) 2 ml IV.FLUSH PRN PRN PRN Reason: FLUSH AFTER USING IV ACCESS Sterile Water (Free Water) 250 ml G-TUBE Q12HR [facility] Last Admin: 05/05/18 08:24 Dose: 250 ml Terbutaline Sulfate (Brethine Inj) 1 mg SQ UNSCH PRN PRN Reason: For Extravasation Allergies/Adverse Reactions: Allergies Allergy/AdvReac Type Severity Reaction Status Date / Time shellfish derived Allergy Anaphylaxis Verified 04/29/18 13:12 No Known Allergies Allergy Uncoded 04/29/18 13:12 Review of Systems unobtainable due to endotracheal tube, unobtainable due to mental status Physical Exam Vital signs: Vital Signs 05/04/18 09:00 05/04/18 09:45 05/04/18 10:00 Temperature Pulse Rate 98 H 92 H Respiratory Rate 24 12 12 Pulse Oximetry 93 L 94 L 94 L 05/04/18 11:00 05/04/18 11:59 05/04/18 12:00 Temperature 100.8 F H Pulse Rate 99 H 90 Respiratory Rate 25 H 12 14 Pulse Oximetry 94 L 94 L 94 L 05/04/18 13:00 05/04/18 14:00 05/04/18 14:16 Temperature Pulse Rate 88 99 H 89 Respiratory Rate 12 Pulse Oximetry 94 L 94 L 05/04/18 14:17 05/04/18 15:00 05/04/18 16:00 Temperature 100.2 F H Pulse Rate 91 H 95 H Respiratory Rate 12 Pulse Oximetry 95 95 93 L 05/04/18 17:00 05/04/18 18:00 11/05/18 19:00 Temperature Pulse Rate 129 H 129 H 120 H Respiratory Rate Pulse Oximetry 91 L 96 96 05/04/18 19:25 05/04/18 19:35 05/04/18 20:00 Temperature Pulse Rate 102 H 105 H Respiratory Rate 12 12 Pulse Oximetry 95 98 05/04/18 21:00 05/04/18 22:00 05/04/18 23:00 Temperature 98.4 F 98.8 F 99.3 F Pulse Rate 104 H 92 H 91 H Respiratory Rate Pulse Oximetry 96 97 96 05/04/18 23:20 05/04/18 23:30 05/05/18 00:00 Temperature 99.3 F Pulse Rate 90 91 H Respiratory Rate 12 12 Pulse Oximetry 95 96 05/05/18 01:00 05/05/18 02:00 05/05/18 03:00 Temperature 99.7 F H 99.7 F H 99.7 F H Pulse Rate 93 H 116 H 104 H Respiratory Rate Pulse Oximetry 96 97 96 05/05/18 03:32 05/05/18 04:00 05/05/18 08:19 Temperature 99.0 F Pulse Rate 105 H 101 H 83 Respiratory Rate 12 12 Pulse Oximetry 97 97 97 Intake & Output 05/04/18 05/05/18 05/05/18 18:59 06:59 18:59 Intake Total 4667 / 4667 4992 / 4992 250 / 250 Output Total 5550 / 5550 5525 / 5525 Balance -883 / -883 -533 / -533 250 / 250 Weight 179.1 kg Intake: IV 3649 / 3649 3900 / 3900 250 / 250 Nimbex Inj 200 MG In NS Inj 480 1500 / 1500 2500 / 2500 ML @ 1 MCG/KG/MIN 27.6 mls/hr IV.CONT TITRATE PRN Rx#: [id number] Versed Inj 50 mg In 50 ml @ 2 150 / 150 100 / 100 50 / 50 MG/HR 2 mls/hr IV.CONT TITRATE PRN Rx#:[id number] Diprivan 1000 mg/100 ml Inj 1, 700 / 700 500 / 500 200 / 200 000 mg In 100 ml @ 5 MCG/KG/MIN 4.77 mls/hr IV.CONT TITRATE PRN Rx#:[id number] Azithromycin Inj 500 MG In NS 250 / 250 Inj 250 ML @ 250 mls/hr IV.SIG Q24H [facility] Rx#:[id number] Zosyn 4.5 GM Premix 4.5 gm In 200 / 200 200 / 200 100 ml @ 200 mls/hr IV.SIG Q6H [facility] Rx#:[id number] KCl 40 mEq Premix Inj 40 meq In 100 / 100 100 ml @ 25 mls/hr IV.SIG NOW ONE Rx#:[id number] Vancomycin Inj 2,000 MG In NS 575 / 575 Inj 500 ML @ 250 mls/hr IV.SIG Q8H [facility] Rx#:[id number] fentaNYL 10 mcg/mL Premix Drip 324 / 324 250 / 250 2,500 mcg In 250 ml @ 50 MCG/HR 5 mls/hr IV.SIG TITRATE PRN Rx #:[id number] Flolan (30,000 ng/mL) Neb 90 ML 100 / 100 100 / 100 In NS Inj 10 ML @ 5 mls/hr NEB Q8H [facility] Rx#:[id number] Tube Feeding 458 / 458 592 / 592 Tube Irrigant 60 / 60 Water Bolus Amount 500 / 500 500 / 500 Output: Stool 0 / 0 Urine Amount (Catheter) 5550 / 5550 5525 / 5525 Indwelling Urethral Catheter 5550 / 5550 5525 / 5525 Other: Date of Last Bowel Movement 05/05/18 # Incontinent Bowel Movements 1 Narrative: GENERAL: in NAD, obese SKIN: Warm and dry. HEAD: Atraumatic. Normocephalic. NECK: Intubated CARDIOVASCULAR: Regular rate and rhythm. RESPIRATORY: Intubated MUSCULOSKELETAL: Extremities without clubbing, cyanosis, or edema. No obvious deformities. NEUROLOGICAL: Intubated, on sedation and paralytics, limited exam, prone position PSYCHIATRIC: Calm - Urinary Catheter Management Indwelling Urethral Catheter Cath placed during this visit: yes, but has since been removed by the nurse Reason for continuing: Acute urinary retention Insertion date: 04/30/18 Insertion time: 18:00 Removal date: 04/28/18 Removal time: 18:45 Straight Cath placed during this visit: yes, but has since been removed by the nurse Reason for continuing: Acute urinary retention Insertion date: 04/30/18 Insertion time: 05:00 Removal date: 04/30/18 Removal time: 05:00 Objective Laboratory Results - last 24 hr 05/04/18 05/04/18 05/04/18 11:19 13:22 17:25 WBC RBC Hgb Hct MCV MCH MCHC RDW Plt Count MPV Neut % (Auto) Lymph % (Auto) [place] % (Auto) Eos % (Auto) Baso % (Auto) Neut # (Auto) Lymph # (Auto) [place] # (Auto) Eos # (Auto) Baso # (Auto) WBC Differential Differential Comment Sodium Potassium 4.2 Chloride Carbon Dioxide Anion Gap BUN Creatinine Estimated GFR POC Glucose 146 H 158 H Random Glucose Calcium Phosphorus Magnesium Total Bilirubin AST ALT Alkaline Phosphatase Total Protein Albumin 05/04/18 05/04/18 05/05/18 19:50 23:14 04:30 WBC 11.6 H RBC 3.23 L Hgb 9.5 L Hct 28.7 L MCV 88.9 MCH 29.2 MCHC 32.9 RDW 14.8 Plt Count 331 MPV 7.7 Neut % (Auto) 82.2 H Lymph % (Auto) 9.6 [place] % (Auto) 8.0 Eos % (Auto) 0.0 Baso % (Auto) 0.2 Neut # (Auto) 9.5 H Lymph # (Auto) 1.1 [place] # (Auto) 0.9 Eos # (Auto) 0.0 Baso # (Auto) 0.0 WBC Differential . Differential Comment Auto diff final Sodium Potassium 3.9 Chloride Carbon Dioxide Anion Gap BUN Creatinine Estimated GFR POC Glucose 215 H Random Glucose Calcium Phosphorus Magnesium Total Bilirubin AST ALT Alkaline Phosphatase Total Protein Albumin 05/05/18 04:30 WBC RBC Hgb Hct MCV MCH MCHC RDW Plt Count MPV Neut % (Auto) Lymph % (Auto) [place] % (Auto) Eos % (Auto) Baso % (Auto) Neut # (Auto) Lymph # (Auto) [place] # (Auto) Eos # (Auto) Baso # (Auto) WBC Differential Differential Comment Sodium 141 Potassium 4.2 Chloride 103 D Carbon Dioxide 29.1 Anion Gap 9 BUN 16 Creatinine 0.69 Estimated GFR Greater than 89 POC Glucose Random Glucose 181 H Calcium 8.0 L Phosphorus 4.1 D Magnesium 2.2 Total Bilirubin 0.4 AST 24 ALT 58 H Alkaline Phosphatase 82 Total Protein 6.5 Albumin 2.1 L Microbiology 05/02/18 17:30 Gram Stain - Final Bronchial - Bronchial Bronchial Culture - Final Staphylococcus aureus 05/03/18 10:10 Aerobic Blood Culture - Preliminary Blood - Peripheral No growth in 1 day Anaerobic Blood Culture - Preliminary No growth in 1 day 05/03/18 11:20 Aerobic Blood Culture - Preliminary Blood - Peripheral No growth in 1 day Anaerobic Blood Culture - Preliminary No growth in 1 day 05/01/18 14:27 Aerobic Blood Culture - Preliminary Blood - Peripheral No growth in 3 days Anaerobic Blood Culture - Preliminary No growth in 3 days 05/01/18 14:20 Aerobic Blood Culture - Preliminary Blood - Peripheral No growth in 3 days Anaerobic Blood Culture - Preliminary No growth in 3 days Review/Management - Diagnosis (1) Acute metabolic encephalopathy Code(s): G93.41 - Metabolic encephalopathy Status: Deleted Current Visit: Yes (2) Acute respiratory failure Code(s): J96.00 - Acute respiratory failure, unspecified whether with hypoxia or hypercapnia Status: Deleted Current Visit: Yes (3) Aspiration pneumonitis Code(s): J69.0 - Pneumonitis due to inhalation of food and vomit Status: Deleted Current Visit: Yes (4) PCP intoxication Code(s): F16.929 - Hallucinogen use, unspecified with intoxication, unspecified Status: Deleted Current Visit: Yes (5) Toxic encephalopathy Code(s): G92 - Toxic encephalopathy Status: Acute Current Visit: Yes - Review/Management Plan: Drug-induced encephalopathy. Possible PCP although exact substance in the bag is not known; father thinks he may have overdosed on Sonata which case he should slowly wake up CT brain negative now with ARDS, pneumonia causing fevers. ID following mri nml. eeg negative for sz Recommendation limited neuro exam 2/2 sedation/paralytics peep apparently improving down to 12 Discussed with ZACK
[2018-05-05 09:26] LABS: ABG Base Excess 3.1 mmol/L (-2-2); ABG PCO2 42 mmHg (38-42); ABG PO2 136 mmHG (61-120)
--- NOTE | 2018-05-05 10:56 | XR ---
EXAM DATE: 05/05/2018 10:49 AM EST AGE/SEX: 22 years / Male INDICATIONS: VDRF. CLINICAL DATA: This is the patient's subsequent encounter. Patient reports that signs and symptoms h ave been present for 2 weeks and indicates a pain score of Nonresponsive. MEDICAL/SURGICAL HISTORY: Non-responsive. Non-responsive. COMPARISON: [facility] [place], CHEST 1V SINGLE AP, 05/04/2018. . FINDINGS: There is worsening airspace consolidation right upper lobe. Lines and tubes have not changed. Slight cardiomegaly has not changed. CONCLUSION: Worsening right upper lung consolidation. Electronically signed by: Lissett Oscar MD 05/05/2018 10:54 AM EST
--- NOTE | 2018-05-05 11:45 | P.DIET ---
Nutritional Evaluation Type of nutrition evaluation: follow-up Nutrition consult regarding: Tube Feeding Objective - Diagnosis suicidal attempt, aspiration pneumonia - Objective % IBW: 192 (IBW = 202lb) Body Weight Used for Calculations: IBW Energy Needs - Lower Range (kCal/kg): 28 Energy Needs - Upper Range (kCal/kg): 32 Lower Limit kCal/kg (kCals): 2,570 Upper Limit kCal/kg (kCals): 2,938 Lower Limit Protein Factor (Grams per Kg): 1.2 Upper Limit Protein Factor (Grams per Kg): 1.5 Lower Protein Needs (Protein): 110 Upper Protein Needs (Protein): 138 Fluid Factor (ml/kg): 30 Estimated Fluid Needs (ml): 2,754 Dietitian Reviewed in Medical Record: Curent medications, Intake & Output, Labs , Medical history, Tube feeding Diet Order: NPO, TF Speech Therapy Recommendations: No Wound Care Note: midline lower back: laceration sacrum: pressure injury Objective Comments: PMH: affective bipolar disorder labs: random glucose 181, Ca+ 8.0 Assessment Assessment: Pt continues to be at nutritional risk r/t NPO status and in need of TFing. Pt currenly sedated on fentanyl, versed, propofol. Jevity running @ 75mL/hr, pt tolerating well. Continue to monitor TF tolerance. Would care notes reviewed. Labs reviewed, dietitian following. Additional recs r/t on medical course. Recommendations: 1. Continue Jevity 1.5 @ 75mL/hr to meet pts nutritional needs 2. Monitor TF tolerance 3. Dietitian following 4. Additional recs r/t on medical course Dietitian to Monitor: Lab values, Intake & Output, Tube feeding tolerance, Weight change, Medical course
[2018-05-05] MEDS: SODIUM CHLOR NEB SCH ×4 (11:52→17:11)
[2018-05-05] MEDS: EPOPROSTENOL NEB SCH ×4 (11:52→17:11)
--- NOTE | 2018-05-05 13:31 | P.PNID ---
Subjective Remarks: yday he was on cooling blanket, today is off afebrile today and off cooling blanket off pressors On prone ventilation Fi o2 goes down to 45% On prone up to 80% Antibiotics: zosyn azithro Allergies/Adverse Reactions: Allergies shellfish derived Allergy (Verified 04/29/18 13:12) Anaphylaxis No Known Allergies Allergy (Uncoded 04/29/18 13:12) Objective Vital Signs 05/04/18 14:00 05/04/18 14:16 05/04/18 14:17 Temperature Pulse Rate 99 H 89 Respiratory Rate 12 12 Pulse Oximetry 94 L 95 05/04/18 15:00 05/04/18 16:00 05/04/18 17:00 Temperature 100.2 F H Pulse Rate 91 H 95 H 129 H Respiratory Rate Pulse Oximetry 95 93 L 91 L 05/04/18 18:00 05/04/18 19:00 05/04/18 19:25 Temperature Pulse Rate 129 H 120 H Respiratory Rate 12 Pulse Oximetry 96 96 95 05/04/18 19:35 05/04/18 20:00 05/04/18 21:00 Temperature 98.4 F Pulse Rate 102 H 105 H 104 H Respiratory Rate 12 Pulse Oximetry 98 96 05/04/18 22:00 05/04/18 23:00 05/04/18 23:20 Temperature 98.8 F 99.3 F Pulse Rate 92 H 91 H Respiratory Rate 12 Pulse Oximetry 97 96 95 05/04/18 23:30 05/05/18 00:00 05/05/18 01:00 Temperature 99.3 F 99.7 F H Pulse Rate 90 91 H 93 H Respiratory Rate 12 Pulse Oximetry 96 96 05/05/18 02:00 05/05/18 03:00 05/05/18 03:32 Temperature 99.7 F H 99.7 F H Pulse Rate 116 H 104 H 105 H Respiratory Rate 12 Pulse Oximetry 97 96 97 05/05/18 04:00 05/05/18 08:00 05/05/18 08:19 Temperature 99.0 F 98.4 F Pulse Rate 101 H 81 83 Respiratory Rate 12 Pulse Oximetry 97 95 97 05/05/18 10:45 05/05/18 12:00 05/05/18 12:11 Temperature 98.1 F Pulse Rate 90 88 Respiratory Rate 12 12 Pulse Oximetry 95 95 Intake & Output 11/05/18 11/06/18 11/06/18 18:59 06:59 18:59 Intake Total 4667 / 4667 4992 / 4992 450 / 450 Output Total 5550 / 5550 5525 / 5525 Balance -883 / -883 -533 / -533 450 / 450 Weight 179.1 kg Intake: IV 3649 / 3649 3900 / 3900 450 / 450 Nimbex Inj 200 MG In NS Inj 480 1500 / 1500 2500 / 2500 ML @ 1 MCG/KG/MIN 27.6 mls/hr IV.CONT TITRATE PRN Rx#: [id number] Versed Inj 50 mg In 50 ml @ 2 150 / 150 100 / 100 50 / 50 MG/HR 2 mls/hr IV.CONT TITRATE PRN Rx#:[id number] Diprivan 1000 mg/100 ml Inj 1, 700 / 700 500 / 500 300 / 300 000 mg In 100 ml @ 5 MCG/KG/MIN 4.77 mls/hr IV.CONT TITRATE PRN Rx#:[id number] Azithromycin Inj 500 MG In NS 250 / 250 Inj 250 ML @ 250 mls/hr IV.SIG Q24H [facility] Rx#:[id number] Zosyn 4.5 GM Premix 4.5 gm In 200 / 200 200 / 200 100 ml @ 200 mls/hr IV.SIG Q6H [facility] Rx#:[id number] KCl 40 mEq Premix Inj 40 meq In 100 / 100 100 ml @ 25 mls/hr IV.SIG NOW ONE Rx#:[id number] Vancomycin Inj 2,000 MG In NS 575 / 575 Inj 500 ML @ 250 mls/hr IV.SIG Q8H [facility] Rx#:[id number] fentaNYL 10 mcg/mL Premix Drip 324 / 324 250 / 250 2,500 mcg In 250 ml @ 50 MCG/HR 5 mls/hr IV.SIG TITRATE PRN Rx #:[id number] Flolan (30,000 ng/mL) Neb 90 ML 100 / 100 100 / 100 100 / 100 In NS Inj 10 ML @ 5 mls/hr NEB Q8H [facility] Rx#:[id number] Tube Feeding 458 / 458 592 / 592 Tube Irrigant 60 / 60 Water Bolus Amount 500 / 500 500 / 500 Output: Stool 0 / 0 Urine Amount (Catheter) 5550 / 5550 5525 / 4546 Indwelling Urethral Catheter 6210 / 5425 4258 / 0085 Other: Date of Last Bowel Movement 05/05/18 # Incontinent Bowel Movements 1 05/03/18 10:10 Blood - Peripheral Aerobic Blood Culture - Preliminary No growth in 2 days 05/03/18 10:10 Blood - Peripheral Anaerobic Blood Culture - Preliminary No growth in 2 days 05/03/18 11:20 Blood - Peripheral Aerobic Blood Culture - Preliminary No growth in 2 days 05/03/18 11:20 Blood - Peripheral Anaerobic Blood Culture - Preliminary No growth in 2 days 05/01/18 14:27 Blood - Peripheral Aerobic Blood Culture - Preliminary No growth in 4 days 05/01/18 14:27 Blood - Peripheral Anaerobic Blood Culture - Preliminary No growth in 4 days 05/01/18 14:20 Blood - Peripheral Aerobic Blood Culture - Preliminary No growth in 4 days 05/01/18 14:20 Blood - Peripheral Anaerobic Blood Culture - Preliminary No growth in 4 days 05/02/18 17:30 Bronchial - Bronchial Gram Stain - Final 05/02/18 17:30 Bronchial - Bronchial Bronchial Culture - Final Staphylococcus aureus 05/01/18 03:00 Sputum - Endotracheal Gram Stain - Final 05/01/18 03:00 Sputum - Endotracheal Sputum Culture - Final Staphylococcus aureus 04/27/18 11:55 Blood - Line Aerobic Blood Culture - Final No growth in 5 days 04/27/18 11:55 Blood - Line Anaerobic Blood Culture - Final No growth in 5 days 04/27/18 12:00 Blood - Line Aerobic Blood Culture - Final No growth in 5 days 04/27/18 12:00 Blood - Line Anaerobic Blood Culture - Final No growth in 5 days Lab - Hematology Results 05/04/18 05/05/18 05:00 04:30 WBC 14.6 H 11.6 H RBC 3.28 L 3.23 L Hgb 9.8 L 9.5 L Hct 28.9 L 28.7 L MCV 88.0 88.9 MCH 29.8 29.2 MCHC 33.8 32.9 RDW 15.1 14.8 Plt Count 328 331 MPV 8.0 7.7 Neut % (Auto) 80.3 H 82.2 H Lymph % (Auto) 11.9 9.6 [place] % (Auto) 7.5 8.0 Eos % (Auto) 0.0 0.0 Baso % (Auto) 0.3 0.2 Neut # (Auto) 11.7 H 9.5 H Lymph # (Auto) 1.7 1.1 [place] # (Auto) 1.1 H 0.9 Eos # (Auto) 0.0 0.0 Baso # (Auto) 0.0 0.0 WBC Differential . . Differential Comment Auto diff final Auto diff final Lab - Chemistry Results 05/03/18 05/03/18 05/03/18 18:05 22:45 23:45 Sodium Potassium 3.4 L Chloride Carbon Dioxide Anion Gap BUN Creatinine Estimated GFR POC Glucose 164 H 138 H Random Glucose Calcium Phosphorus Magnesium Total Bilirubin AST ALT Alkaline Phosphatase Total Protein Albumin 05/04/18 05/04/18 05/04/18 05:00 06:13 11:19 Sodium 147 H Potassium 3.6 Chloride 114 H Carbon Dioxide 24.1 Anion Gap 9 BUN 27 H Creatinine 0.86 Estimated GFR Greater than 89 POC Glucose 162 H 146 H Random Glucose 140 H Calcium 8.1 L Phosphorus 2.7 Magnesium 2.4 Total Bilirubin 0.4 AST 35 ALT 55 H Alkaline Phosphatase 94 Total Protein 6.7 Albumin 2.2 L 05/04/18 05/04/18 05/04/18 13:22 17:25 19:50 Sodium Potassium 4.2 3.9 Chloride Carbon Dioxide Anion Gap BUN Creatinine Estimated GFR POC Glucose 158 H Random Glucose Calcium Phosphorus Magnesium Total Bilirubin AST ALT Alkaline Phosphatase Total Protein Albumin 05/04/18 05/05/18 05/05/18 23:14 04:30 12:14 Sodium 141 Potassium 4.2 Chloride 103 D Carbon Dioxide 29.1 Anion Gap 9 BUN 16 Creatinine 0.69 Estimated GFR Greater than 89 POC Glucose 215 H 175 H Random Glucose 181 H Calcium 8.0 L Phosphorus 4.1 D Magnesium 2.2 Total Bilirubin 0.4 AST 24 ALT 58 H Alkaline Phosphatase 82 Total Protein 6.5 Albumin 2.1 L Imaging: ITS Impressions Head CT 04/27/18 11:31 CONCLUSION: 1. Negative CT Head non contrast. . Abdomen/Pelvis CT 04/27/18 11:35 CONCLUSION: 1. Extensive atelectasis in both lower lobes. 2. The Stone catheter needs to be deflated and advanced into the bladder. The catheter is at the level of the prosthetic urethra. 3. No findings to indicate a bowel obstruction are seen. No free air free fluid is identified. Chest CT 04/27/18 11:35 CONCLUSION: 1. Consolidation both posterior lungs with air bronchograms. This could represent bilateral pneumonia or aspiration. Cervical Spine CT 04/27/18 11:36 CONCLUSION: 1. Negative trauma study. Lumbar Spine CT 04/27/18 11:59 CONCLUSION: 1. Negative for acute process 2. There is no evidence for vertebral compression. Head MRI 04/29/18 07:05 CONCLUSION: 1. Negative MRI of the brain. 2. Inflammatory process cannot be entirely excluded. 3. There are no infarcts identified. Chest X-Ray 05/05/18 00:00 CONCLUSION: Worsening right upper lung consolidation. Physical Exam: GENERAL: NAD sedated and paralyzed int'd and on vant SKIN: Warm and dry. no rash HEAD: Atraumatic. Normocephalic. EYES: Face edematous ENT: orally intubated NECK: Trachea midline. No JVD. CARDIOVASCULAR: Regular rate and rhythm. RESPIRATORY: No accessory muscle use. Clear to auscultation. Breath sounds equally diminished bilaterally. GASTROINTESTINAL: Abdomen soft, non-tender, nondistended. Hepatic and splenic margins not palpable. MUSCULOSKELETAL: Extremities without clubbing, cyanosis, or edema. No obvious deformities. walm, well perfused NEUROLOGICAL: sedated and paralyzed PSYCHIATRIC: unable to assess Assessment and Plan - Plan PNA, probably aspiration Acute VDRF Growing MSSA, beta strep from the sputum Morbid obesity with likley obesity- hypoventilation sd dc zosyn start Unasyn cont azithromycin repeat sputum clx dw RN @ b/s sanket Taylor
[2018-05-05] MEDS: Ampicillin/Sulbactam Inj 3 GM in Sodium Chloride 0.9% Inj 100 ML IV.SIG SCH ×2 (14:11→20:20)
[2018-05-05] MEDS: Bumetanide Inj 25 MG/100 ML BAG IV.CONT SCH ×2 (14:35→19:37)
[2018-05-05] MEDS: Azithromycin Inj 500 MG in Sodium Chlor 0.9% Inj 250 ML IV.SIG SCH (19:39)
[2018-05-06] MEDS: Insulin NovoLOG Aspart Correctional Sugar Inj SQ SCH ×4 (00:05→17:18)
[2018-05-06] MEDS: Artificial Tears Opth Drops 15 ML Bottle EACH EYE SCH ×3 (00:06→17:00)
[2018-05-06] MEDS: CISATRACURIUM IV.CONT PRN ×9 (01:04→21:52)
[2018-05-06] MEDS: SODIUM CHLOR 0.9% IV.CONT PRN ×9 (01:04→21:52)
[2018-05-06] MEDS: Propofol 1000 mg/100 ml Inj 1,000 MG/100 ML BOTTLE IV.CONT PRN ×12 (02:02→23:07)
[2018-05-06] MEDS: Ampicillin/Sulbactam Inj 3 GM in Sodium Chloride 0.9% Inj 100 ML IV.SIG SCH ×4 (02:02→20:07)
[2018-05-06] MEDS: Midazolam 50 MG/50 ML Inj 50 MG/50 ML BAG IV.CONT PRN ×4 (05:02→20:12)
[2018-05-06] MEDS: Heparin - SQ 10,000 UNITS/ML Vial SQ SCH ×2 (05:50→16:59)
[2018-05-06] MEDS: MethylPREDNISolone Sod Succinate Inj 40 MG/ML Vial IV.PUSH SCH ×3 (05:50→21:16)
[2018-05-06 06:02] LABS: Baso % (Auto) 0.2 % (0.0-2.0); Eos % (Auto) 0.3 % (0.0-4.0); Hematocrit 31.6 % (39.0-51.0); Hemoglobin 10.6 gm/dL (13.0-17.0); Lymph # (Auto) 1.9 th/mm3 (1.0-4.8); Lymph % (Auto) 16.8 % (9.0-44.0); Mean Corpuscular HGB Conc 33.4 % (32.0-36.0); Mean Corpuscular Hemoglobin 29.6 pg (27.0-34.0); Mean Corpuscular Volume 88.7 fL (80.0-100.0); Mean Platelet Volume 8.1 fL (7.0-11.0); Mono % (Auto) 8.6 % (0.0-8.0); Neut # (Auto) 8.6 th/mm3 (1.8-7.7); Neut % (Auto) 74.1 % (16.0-70.0); Platelet Count 350 th/mm3 (150-450); Red Blood Count 3.57 mil/mm3 (4.50-5.90); White Blood Count 11.6 th/mm3 (4.0-11.0)
[2018-05-06 06:25] LABS: Albumin 2.3 g/dL (3.4-5.0); Anion Gap 8 meq/L (5-15); Aspartate Aminotransferase 31 U/L (15-39); Blood Urea Nitrogen 20 mg/dL (7-18); Calcium 8.2 mg/dL (8.5-10.1); Carbon Dioxide 28.9 meq/L (21.0-32.0); Chloride 101 meq/L (98-107); Glomerular Filtration Rate Greater Than 89 mL/min (>89); Glucose,Random 160 mg/dL (74-106); Magnesium 2.3 mg/dL (1.5-2.5); Potassium 3.8 meq/L (3.5-5.1); Sodium 138 meq/L (136-145)
[2018-05-06 06:34] LABS: Alanine Aminotransferase 78 U/L (9-52); Alkaline Phosphatase 79 U/L (45-117); Phosphorus 3.5 mg/dL (2.5-4.9); Total Protein 6.7 g/dL (6.4-8.2)
--- NOTE | 2018-05-06 07:03 | P.PNCC ---
Subjective Subjective Remarks/Hospital Course: Patient is approximately 22 years old male obese, was found on the floor by a family member, downtime is unknown. EMS was called, patient was given Narcan with no response, he was intubated on the scene, apparently GCS 3. Found bag of PCP next to the patient. Patient has history of psychiatric disorder ? bipolar disorder and I am told he has attempted suicide in the past. There is also mention about suspicion of ethylene glycol ingestion, but his serum osmolality is 307 his osmolar gap is only 13. Bicarb is 26, ethylene glycol seems unlikely. Ethanol was negative urine drug screen only positive for benzo. I evaluated the patient in the ICU at the [facility]. Patient had a CT of the head which was negative. Rest of the workup unremarkable except for bibasilar atelectasis/aspiration pneumonia. Patient's white count is elevated at 17.1, glucose is 232 lactic acid was 2.8. He received multiple fluid boluses. At this time he is not on any sedation but remains unresponsive no response to deep pain 04/28 Patient remains intubated off sedation unresponsive. Afebrile. 04/29: MRI of the brain revealed no acute intracranial findings. EEG to be performed tomorrow. More arousable and moves all 4 extremities but not following commands. Placed on dexamethasone E drip. 2 feeds will be restarted SUBJECTIVE: 04/30: T-max 101.4. Currently afebrile. No bowel movement since admission. Arousable and follows simple commands late last night but currently on sedation for agitation. Increased FiO2 noted. Will attempt to gently diurese and continue antibiotics for pansensitive staph aureus/group a beta strep sputum 05/01 Patient is sedated with Fentanyl, Diprivan and intubated. T:101.1 at 5am. Placed on APRV overnight. 05/02 Patient is sedated with Diprivan and Fentanyl drips. Tmax 101.3, on PC/AC with PEEP:12, FIO2 80%, IP:30 05/03 Patient is heavily sedated with Diprivan, Fentanyl and Versed . On PC/AC with PEEP: 14 and FIO2 100$ sats 92%, CXR yesterday showed diffuse b/l pulm infiltrates, started on Flolan nebs. Had Tmax 102.6 last night. 05/04 Patient was placed on rotoprone bed yesterday sedated with Diprivan, Versed and Fentanyl infusion and on neuromuscular blockade( Nimbex) On PC/AC His FIO2 requirements is better now on FIO2:50% from 100% with PEEP:14. T:102.6 05/05 Patient remains intubated and sedated on Bumex drio0.5mg/hr, T:99.7 at 3am. On PC/AC with PEEP:1 and FIO2 60%- sats 95%. 05/06 Patient remains sedated and intubated on rotoprone bed with improvements in his oxygenation. Now on PC/AC with PEEP:10, FIO2 40%. Afebrile. On Bumex drip 0.5mg/hr. Objective Vital Signs / I&O: Vital Signs 05/05/18 08:00 05/05/18 08:19 05/05/18 10:45 Temperature 98.4 F Pulse Rate 81 83 Respiratory Rate 12 12 Pulse Oximetry 95 97 95 05/05/18 12:00 05/05/18 12:11 05/05/18 15:57 Temperature 98.1 F Pulse Rate 90 88 90 Respiratory Rate 12 12 Pulse Oximetry 95 93 L 05/05/18 16:00 05/05/18 19:31 05/05/18 20:00 Temperature 98.8 F 99.0 F Pulse Rate 93 H 100 H Respiratory Rate 12 Pulse Oximetry 93 L 98 94 L 05/06/18 00:00 05/06/18 00:12 05/06/18 04:00 Temperature 99.3 F 98.7 F Pulse Rate 91 H 113 H Respiratory Rate 12 12 Pulse Oximetry 98 98 98 05/06/18 04:34 Temperature Pulse Rate Respiratory Rate 12 Pulse Oximetry 97 Intake & Output 05/05/18 05/05/18 05/06/18 06:59 18:59 06:59 Intake Total 4992 / 4992 3877 / 3877 4173 / 4173 Output Total 5525 / 5525 5000 / 5000 4750 / 4750 Balance -533 / -533 -1123 / -1123 -577 / -577 Weight 179.1 kg 174 kg Intake: IV 3900 / 3900 3074 / 3074 3326 / 3326 Bumex Inj 25 mg In 100 ml @ 0.5 78 / 78 MG/HR 2 mls/hr IV.CONT .Q24H [facility] Rx#:[id number] Nimbex Inj 200 MG In NS Inj 480 2500 / 2500 1500 / 1500 2000 / 2000 ML @ 1 MCG/KG/MIN 27.6 mls/hr IV.CONT TITRATE PRN Rx#: [id number] Versed Inj 50 mg In 50 ml @ 2 100 / 100 150 / 150 100 / 100 MG/HR 2 mls/hr IV.CONT TITRATE PRN Rx#:[id number] Diprivan 1000 mg/100 ml Inj 1, 500 / 500 700 / 700 600 / 600 000 mg In 100 ml @ 5 MCG/KG/MIN 4.77 mls/hr IV.CONT TITRATE PRN Rx#:[id number] Unasyn Inj 3 GM In NS Inj 100 100 / 100 200 / 200 ML @ 200 mls/hr IV.SIG Q6H [facility] Rx#:[id number] Azithromycin Inj 500 MG In NS 250 / 250 250 / 250 Inj 250 ML @ 250 mls/hr IV.SIG Q24H [facility] Rx#:[id number] Zosyn 4.5 GM Premix 4.5 gm In 200 / 200 100 ml @ 200 mls/hr IV.SIG Q6H [facility] Rx#:[id number] fentaNYL 10 mcg/mL Premix Drip 250 / 250 402 / 402 98 / 98 2,500 mcg In 250 ml @ 50 MCG/HR 5 mls/hr IV.SIG TITRATE PRN Rx #:[id number] Flolan (30,000 ng/mL) Neb 90 ML 100 / 100 200 / 200 In NS Inj 10 ML @ 5 mls/hr NEB Q8H [facility] Rx#:[id number] Oral 0 / 0 Tube Feeding 592 / 592 553 / 553 547 / 547 Water Bolus Amount 500 / 500 250 / 250 300 / 300 Output: Urine 5000 / 5000 Urine Amount (Catheter) 5525 / 5525 4750 / 4750 Indwelling Urethral Catheter 5525 / 5525 4750 / 4750 Other: Date of Last Bowel Movement 05/05/18 05/05/18 05/06/18 # Incontinent Bowel Movements 1 1 1 Result Diagrams: 05/06/18 04:11 05/06/18 04:11 Other Results: Laboratory Results - last 12 hr 05/05/18 05/06/18 05/06/18 23:51 04:11 04:11 WBC 11.6 H RBC 3.57 L Hgb 10.6 L Hct 31.6 L MCV 88.7 MCH 29.6 MCHC 33.4 RDW 15.0 Plt Count 350 MPV 8.1 Prelim Diff (Auto) Slide review pending Neut % (Auto) 74.1 H Lymph % (Auto) 16.8 [place] % (Auto) 8.6 H Eos % (Auto) 0.3 Baso % (Auto) 0.2 Neut # (Auto) 8.6 H Lymph # (Auto) 1.9 [place] # (Auto) 1.0 H Eos # (Auto) 0.0 Baso # (Auto) 0.0 Differential Comment . Sodium 138 Potassium 3.8 Chloride 101 Carbon Dioxide 28.9 Anion Gap 8 BUN 20 H Creatinine 0.72 Estimated GFR Greater than 89 POC Glucose 183 H Random Glucose 160 H Calcium 8.2 L Phosphorus 3.5 Magnesium 2.3 Total Bilirubin 0.4 AST 31 ALT 78 H Alkaline Phosphatase 79 Total Protein 6.7 Albumin 2.3 L 05/06/18 05:46 WBC RBC Hgb Hct MCV MCH MCHC RDW Plt Count MPV Prelim Diff (Auto) Neut % (Auto) Lymph % (Auto) [place] % (Auto) Eos % (Auto) Baso % (Auto) Neut # (Auto) Lymph # (Auto) [place] # (Auto) Eos # (Auto) Baso # (Auto) Differential Comment Sodium Potassium Chloride Carbon Dioxide Anion Gap BUN Creatinine Estimated GFR POC Glucose 171 H Random Glucose Calcium Phosphorus Magnesium Total Bilirubin AST ALT Alkaline Phosphatase Total Protein Albumin Imaging: Head CT 04/27/18 11:31 CONCLUSION: 1. Negative CT Head non contrast. . Abdomen/Pelvis CT 04/27/18 11:35 CONCLUSION: 1. Extensive atelectasis in both lower lobes. 2. The Stone catheter needs to be deflated and advanced into the bladder. The catheter is at the level of the prosthetic urethra. 3. No findings to indicate a bowel obstruction are seen. No free air free fluid is identified. Chest CT 04/27/18 11:35 CONCLUSION: 1. Consolidation both posterior lungs with air bronchograms. This could represent bilateral pneumonia or aspiration. Cervical Spine CT 04/27/18 11:36 CONCLUSION: 1. Negative trauma study. Lumbar Spine CT 04/27/18 11:59 CONCLUSION: 1. Negative for acute process 2. There is no evidence for vertebral compression. Head MRI 04/29/18 07:05 CONCLUSION: 1. Negative MRI of the brain. 2. Inflammatory process cannot be entirely excluded. 3. There are no infarcts identified. Chest X-Ray 05/05/18 00:00 CONCLUSION: Worsening right upper lung consolidation. Objective Remarks: GENERAL: Patient is 22 yo intubated . SKIN: Warm and dry. No rash HEAD: Normocephalic. EYES: No scleral icterus. No injection or drainage. NECK: Supple, trachea midline. No JVD or lymphadenopathy. CARDIOVASCULAR: Regular rate and rhythm without murmurs, gallops, or rubs. RESPIRATORY: Breath sounds equal bilaterally. No accessory muscle use. GASTROINTESTINAL: Abdomen soft, non-tender, nondistended. MUSCULOSKELETAL: No significant peripheral edema. Neuro: intubated, sedated Assessment and Plan - Assessment and Plan Plan: NEURO/PSYCH: Acute metabolic encephalopathy Suspected PCP overdose Suspected ethylene glycol overdose Suicide attempt -PCP was found near the patient ,continue supportive care -On Diprivan. Versed and Fentanyl infusion for sedation and vent synchrony -monitor neuro status. On Neuromuscular blockade( Nimbex)monitor train of 4 -Urine drug screen positive for benzos only -Psychiatric consult after neurological recovery -CT of the head negative. MRI of brain negative. Cannot rule out inflammatory process - EEG 04/30 and follow-up EEG 04/28 with no epileptic activity -Ammonia level: 21 -Neuro is following- Dr. Landon RESP: Acute respiratory failure Bibasilar aspiration pneumonitis Severe ARDS -Continue with vent support keep sats >92% -On PC/AC RR16, IP:30, IT:1.2, PEEP:10 and FIO2 40% -Ventilator bundle. -Bronchodilators ( DuoNeb, Mucomyst nebs Q4), Solumederol 80mg Q8 - Continue with Flolan nebs ( 30,000 ng/ml) -Check CXR today s/p bronch 05/02 thick secretions suctioned to clear. No evidence of EBL or bleeding. On rotoprone bed for proning CV: Hypotension Lactic acidosis -Monitor HR and BP keep MAP>65mmHg -Lactic acid 1.7 -On Lopressor 50mg BID -Echo 04/28: EF 60-65%, PASP 36mmHg GI: - IV famotidine -On tube feeds Jevity 1.5 will goal rate 75ml/hr Docusate serum/senna 1 tablet twice daily for bowel regimen. Lactulose 30 cc twice daily and MiraLAX 17 g twice daily. free water 250ml Q12 Renal/FEN/: -Monitor renal function, I/O's, electrolytes replacement as needed -CT abd/pelvis: No findings to indicate a bowel obstruction are seen. No free air free fluid is identified. -On Bumex 0.5mg/hr ID: MSSA/group A beta strep pneumonia Abx per ID- On Unasyn, Azithromycin and monitor for signs of infections ( Fever , WBC) Follow up on blood no growth and sputum cxs. Staph aureus/MSSA and group A beta strep 05/02 BC: Coag positive staph ID is following HEME: Normocytic anemia Leukocytosis -Monitor CBC, coags ENDO/FEN: Hyperglycemia Hypernatremia -Electrolyte replacement per protocol -Sliding scale insulin PROPH: -Bilateral lower extremity SCDs. Subcu heparin/famotidine LINES: -Utilize peripheral IVs, [facility] central line placed in ED 04/27 Discussed with patient's father and updated him on his condition CC time 40 min
[2018-05-06 07:47] LABS: Eosinophils 1 % (0-4); Lymphocytes 17 % (9-44); Metamyelocytes 1 % (0-1); Monocytes 3 % (0-8); Promyelocyte 1 % (0-0)
[2018-05-06 07:49] LABS: Toxic Vacuolation Present
[2018-05-06 07:50] LABS: Platelet Estimate Normal (Normal); Platelet Morphology Clumped (Normal); Toxic Granulation 1+
[2018-05-06] MEDS: Metoprolol Tartrate 50 MG Tablet PO SCH ×2 (09:29→20:07)
[2018-05-06] MEDS: Polyethylene Glycol 3350 17 GM Packet PO SCH ×2 (09:29→20:07)
[2018-05-06] MEDS: Pantoprazole Inj 40 MG Vial IV.PUSH SCH (09:29)
[2018-05-06] MEDS: Senna/Docusate Sodium 8.6/50 MG Tablet PO SCH ×2 (09:29→20:07)
[2018-05-06] MEDS: fentaNYL 10 mcg/mL Premix Drip 2,500 MCG/250 ML BAG IV.SIG PRN ×2 (09:32→17:17)
--- NOTE | 2018-05-06 09:38 | XR ---
EXAM DATE: 05/06/2018 9:26 AM EST AGE/SEX: 22 years / Male INDICATIONS: Atelectasis. CLINICAL DATA: This is the patient's subsequent encounter. Patient reports that signs and symptoms h ave been present for 1 week and indicates a pain score of Nonresponsive. MEDICAL/SURGICAL HISTORY: None. Tonsillectomy. COMPARISON: [facility] [place], CHEST 1V SINGLE AP, 05/05/2018. . FINDINGS: Consolidating segmental airspace disease remains evident in the right upper lobe. Right perihilar opa city is stable. Minimal airspace disease is seen in the left base. Lungs are hypoaerated. Support devices remain in good position. CONCLUSION: No significant improvement. Persistent bilateral airspace disease as described. Supportive devices remain in good position. Electronically signed by: Sebastian Sylvester MD 05/06/2018 9:37 AM EST
[2018-05-06] MEDS: EPOPROSTENOL NEB SCH ×4 (13:13→21:23)
[2018-05-06] MEDS: SODIUM CHLOR NEB SCH ×4 (13:13→21:23)
--- NOTE | 2018-05-06 15:35 | P.PNID ---
Subjective Remarks: seen during prone venilatio On 40% FiO2 no fever Antibiotics: unasyn azithro Allergies/Adverse Reactions: Allergies shellfish derived Allergy (Verified 04/29/18 13:12) Anaphylaxis No Known Allergies Allergy (Uncoded 04/29/18 13:12) Objective Vital Signs 05/05/18 15:57 05/05/18 16:00 05/05/18 19:31 Temperature 98.8 F Pulse Rate 90 93 H Respiratory Rate 12 12 Pulse Oximetry 93 L 93 L 98 05/05/18 20:00 05/06/18 00:00 05/06/18 00:12 Temperature 99.0 F 99.3 F Pulse Rate 100 H 91 H Respiratory Rate 12 Pulse Oximetry 94 L 98 98 05/06/18 04:00 05/06/18 04:34 05/06/18 07:26 Temperature 98.7 F Pulse Rate 113 H 75 Respiratory Rate 12 12 12 Pulse Oximetry 98 97 93 L 05/06/18 08:00 05/06/18 12:00 05/06/18 12:40 Temperature 99.5 F 99.7 F H Pulse Rate 81 91 H 102 H Respiratory Rate 12 12 Pulse Oximetry 97 89 L 93 L Intake & Output 05/05/18 05/06/18 05/06/18 18:59 06:59 18:59 Intake Total 3877 / 3877 4173 / 4173 2648 / 2648 Output Total 5000 / 5000 4750 / 4750 Balance -1123 / -1123 -577 / -577 2648 / 2648 Weight 174 kg Intake: IV 3074 / 3074 3326 / 3326 2648 / 2648 Bumex Inj 25 mg In 100 ml @ 0.5 22 / 22 78 / 78 MG/HR 2 mls/hr IV.CONT .Q24H [facility] Rx#:[id number] Nimbex Inj 200 MG In NS Inj 480 1500 / 1500 2000 / 2000 2000 / 2000 ML @ 1 MCG/KG/MIN 27.6 mls/hr IV.CONT TITRATE PRN Rx#: [id number] Versed Inj 50 mg In 50 ml @ 2 150 / 150 100 / 100 50 / 50 MG/HR 2 mls/hr IV.CONT TITRATE PRN Rx#:[id number] Diprivan 1000 mg/100 ml Inj 1, 700 / 700 600 / 600 300 / 300 000 mg In 100 ml @ 5 MCG/KG/MIN 4.77 mls/hr IV.CONT TITRATE PRN Rx#:[id number] Unasyn Inj 3 GM In NS Inj 100 100 / 100 200 / 200 100 / 100 ML @ 200 mls/hr IV.SIG Q6H [facility] Rx#:[id number] Azithromycin Inj 500 MG In NS 250 / 250 Inj 250 ML @ 250 mls/hr IV.SIG Q24H [facility] Rx#:[id number] fentaNYL 10 mcg/mL Premix Drip 402 / 402 98 / 98 98 / 98 2,500 mcg In 250 ml @ 50 MCG/HR 5 mls/hr IV.SIG TITRATE PRN Rx #:[id number] Flolan (30,000 ng/mL) Neb 90 ML 200 / 200 100 / 100 In NS Inj 10 ML @ 5 mls/hr NEB Q8H [facility] Rx#:[id number] Oral 0 / 0 Tube Feeding 553 / 553 547 / 547 Water Bolus Amount 250 / 250 300 / 300 Output: Urine 5000 / 5000 Urine Amount (Catheter) 4750 / 4750 Indwelling Urethral Catheter 4750 / 4750 Other: Date of Last Bowel Movement 05/05/18 05/06/18 05/06/18 # Incontinent Bowel Movements 1 1 05/03/18 10:10 Blood - Peripheral Aerobic Blood Culture - Preliminary gram positive cocci 05/03/18 10:10 Blood - Peripheral Anaerobic Blood Culture - Preliminary No growth in 3 days 05/03/18 11:20 Blood - Peripheral Aerobic Blood Culture - Preliminary No growth in 3 days 05/03/18 11:20 Blood - Peripheral Anaerobic Blood Culture - Preliminary No growth in 3 days 05/01/18 14:27 Blood - Peripheral Aerobic Blood Culture - Final No growth in 5 days 05/01/18 14:27 Blood - Peripheral Anaerobic Blood Culture - Final No growth in 5 days 05/01/18 14:20 Blood - Peripheral Aerobic Blood Culture - Final No growth in 5 days 05/01/18 14:20 Blood - Peripheral Anaerobic Blood Culture - Final No growth in 5 days 05/02/18 17:30 Bronchial - Bronchial Gram Stain - Final 05/02/18 17:30 Bronchial - Bronchial Bronchial Culture - Final Staphylococcus aureus 05/01/18 03:00 Sputum - Endotracheal Gram Stain - Final 05/01/18 03:00 Sputum - Endotracheal Sputum Culture - Final Staphylococcus aureus Lab - Hematology Results 05/05/18 05/06/18 04:30 04:11 WBC 11.6 H 11.6 H RBC 3.23 L 3.57 L Hgb 9.5 L 10.6 L Hct 28.7 L 31.6 L MCV 88.9 88.7 MCH 29.2 29.6 MCHC 32.9 33.4 RDW 14.8 15.0 Plt Count 331 350 MPV 7.7 8.1 Prelim Diff (Auto) Slide review pending Neut % (Auto) 82.2 H 74.1 H Lymph % (Auto) 9.6 16.8 [place] % (Auto) 8.0 8.6 H Eos % (Auto) 0.0 0.3 Baso % (Auto) 0.2 0.2 Neut # (Auto) 9.5 H 8.6 H Lymph # (Auto) 1.1 1.9 [place] # (Auto) 0.9 1.0 H Eos # (Auto) 0.0 0.0 Baso # (Auto) 0.0 0.0 WBC Differential . Manual diff final Seg Neuts % (Manual) 74 H Band Neuts % (Manual) 3 Lymphocytes % (Manual) 17 Monocytes % (Manual) 3 Eosinophils % (Manual) 1 Metamyelocytes % (Man) 1 Promyelocytes % (Man) 1 H Abs Neuts (Manual) 9.2 H Differential Comment Auto diff final . Toxic Granulation 1+ H Toxic Vacuolation Present H Platelet Estimate Normal Platelet Morphology Clumped H Lab - Chemistry Results 05/04/18 05/04/18 05/04/18 17:25 19:50 23:14 Sodium Potassium 3.9 Chloride Carbon Dioxide Anion Gap BUN Creatinine Estimated GFR POC Glucose 158 H 215 H Random Glucose Calcium Phosphorus Magnesium Total Bilirubin AST ALT Alkaline Phosphatase Total Protein Albumin 05/05/18 05/05/18 05/05/18 04:30 12:14 17:02 Sodium 141 Potassium 4.2 Chloride 103 D Carbon Dioxide 29.1 Anion Gap 9 BUN 16 Creatinine 0.69 Estimated GFR Greater than 89 POC Glucose 175 H 214 H Random Glucose 181 H Calcium 8.0 L Phosphorus 4.1 D Magnesium 2.2 Total Bilirubin 0.4 AST 24 ALT 58 H Alkaline Phosphatase 82 Total Protein 6.5 Albumin 2.1 L 05/05/18 05/06/18 05/06/18 23:51 04:11 05:46 Sodium 138 Potassium 3.8 Chloride 101 Carbon Dioxide 28.9 Anion Gap 8 BUN 20 H Creatinine 0.72 Estimated GFR Greater than 89 POC Glucose 183 H 171 H Random Glucose 160 H Calcium 8.2 L Phosphorus 3.5 Magnesium 2.3 Total Bilirubin 0.4 AST 31 ALT 78 H Alkaline Phosphatase 79 Total Protein 6.7 Albumin 2.3 L 05/06/18 11:22 Sodium Potassium Chloride Carbon Dioxide Anion Gap BUN Creatinine Estimated GFR POC Glucose 186 H Random Glucose Calcium Phosphorus Magnesium Total Bilirubin AST ALT Alkaline Phosphatase Total Protein Albumin Imaging: ITS Impressions Head CT 04/27/18 11:31 CONCLUSION: 1. Negative CT Head non contrast. . Abdomen/Pelvis CT 04/27/18 11:35 CONCLUSION: 1. Extensive atelectasis in both lower lobes. 2. The Stone catheter needs to be deflated and advanced into the bladder. The catheter is at the level of the prosthetic urethra. 3. No findings to indicate a bowel obstruction are seen. No free air free fluid is identified. Chest CT 04/27/18 11:35 CONCLUSION: 1. Consolidation both posterior lungs with air bronchograms. This could represent bilateral pneumonia or aspiration. Cervical Spine CT 04/27/18 11:36 CONCLUSION: 1. Negative trauma study. Lumbar Spine CT 04/27/18 11:59 CONCLUSION: 1. Negative for acute process 2. There is no evidence for vertebral compression. Head MRI 04/29/18 07:05 CONCLUSION: 1. Negative MRI of the brain. 2. Inflammatory process cannot be entirely excluded. 3. There are no infarcts identified. Chest X-Ray 05/06/18 08:00 CONCLUSION: No significant improvement. Persistent bilateral airspace disease as described. Supportive devices remain in good position. Physical Exam: exam limited 2/2 prone position GENERAL: NAD sedated and paralyzed int'd and on vant SKIN: Warm and dry. no rash HEAD: Atraumatic. Normocephalic. EYES: Face edematous ENT: orally intubated NECK: Trachea midline. No JVD. CARDIOVASCULAR: Regular rate and rhythm on monitor well perfused perifery RESPIRATORY: Breath sounds equally diminished bilaterally posteriory clear to as GASTROINTESTINAL: not performed 2/2 prone position MUSCULOSKELETAL: Extremities without clubbing, cyanosis, or edema. NEUROLOGICAL: sedated and paralyzed PSYCHIATRIC: unable to assess Assessment and Plan - Plan PNA, probably aspiration Acute VDRF Growing MSSA, beta strep from the sputum Morbid obesity with likley obesity- hypoventilation sd GPC bactermeia, low grade ? clin significance cont Unasyn cont azithromycin will restart vancomycin P further ID/S on the isolate sanket RN @ b/s sanket Taylor
[2018-05-06] MEDS ORDERED: Vancomycin Consult Pharmacy OTHER PRN (15:36)
[2018-05-06] MEDS: Vancomycin Inj 2,250 MG in Sodium Chlor 0.9% Inj 500 ML IV.SIG SCH (16:59)
[2018-05-06] MEDS: Azithromycin Inj 500 MG in Sodium Chlor 0.9% Inj 250 ML IV.SIG SCH (20:05)
[2018-05-07] MEDS: Insulin NovoLOG Aspart Correctional Sugar Inj SQ SCH ×4 (00:30→19:27)
[2018-05-07] MEDS: Artificial Tears Opth Drops 15 ML Bottle EACH EYE SCH ×4 (00:30→23:16)
[2018-05-07] MEDS: SODIUM CHLOR 0.9% IV.CONT PRN ×9 (00:33→22:47)
[2018-05-07] MEDS: CISATRACURIUM IV.CONT PRN ×9 (00:33→22:47)
[2018-05-07] MEDS: Propofol 1000 mg/100 ml Inj 1,000 MG/100 ML BOTTLE IV.CONT PRN ×12 (00:56→23:00)
[2018-05-07] MEDS: Vancomycin Inj 2,250 MG in Sodium Chlor 0.9% Inj 500 ML IV.SIG SCH ×3 (01:09→17:01)
[2018-05-07] MEDS: Midazolam 50 MG/50 ML Inj 50 MG/50 ML BAG IV.CONT PRN ×2 (01:09→18:30)
[2018-05-07] MEDS: fentaNYL 10 mcg/mL Premix Drip 2,500 MCG/250 ML BAG IV.SIG PRN ×3 (02:20→20:03)
[2018-05-07] MEDS: Ampicillin/Sulbactam Inj 3 GM in Sodium Chloride 0.9% Inj 100 ML IV.SIG SCH ×4 (02:52→20:22)
[2018-05-07] MEDS: MethylPREDNISolone Sod Succinate Inj 40 MG/ML Vial IV.PUSH SCH ×3 (05:45→21:59)
[2018-05-07] MEDS: Heparin - SQ 10,000 UNITS/ML Vial SQ SCH ×2 (05:45→17:00)
[2018-05-07 06:07] LABS: Baso # (Auto) 0.1 th/mm3 (0.0-0.2); Baso % (Auto) 0.4 % (0.0-2.0); Eos # (Auto) 0.1 th/mm3 (0.0-0.4); Eos % (Auto) 0.5 % (0.0-4.0); Hematocrit 35.6 % (39.0-51.0); Hemoglobin 11.8 gm/dL (13.0-17.0); Lymph # (Auto) 2.3 th/mm3 (1.0-4.8); Lymph % (Auto) 14.4 % (9.0-44.0); Mean Corpuscular HGB Conc 33.1 % (32.0-36.0); Mean Corpuscular Hemoglobin 29.6 pg (27.0-34.0); Mean Corpuscular Volume 89.4 fL (80.0-100.0); Mean Platelet Volume 7.9 fL (7.0-11.0); Mono # (Auto) 1.4 th/mm3 (0.0-0.9); Mono % (Auto) 8.7 % (0.0-8.0); Neut # (Auto) 11.9 th/mm3 (1.8-7.7); Platelet Count 448 th/mm3 (150-450); Red Blood Count 3.98 mil/mm3 (4.50-5.90); Red Cell Distribution Width 15.1 % (11.6-17.2); White Blood Count 15.6 th/mm3 (4.0-11.0)
[2018-05-07 06:37] LABS: Alanine Aminotransferase 73 U/L (9-52); Albumin 2.5 g/dL (3.4-5.0); Anion Gap 8 meq/L (5-15); Aspartate Aminotransferase 17 U/L (15-39); Blood Urea Nitrogen 22 mg/dL (7-18); Calcium 8.3 mg/dL (8.5-10.1); Carbon Dioxide 30.8 meq/L (21.0-32.0); Chloride 100 meq/L (98-107); Glomerular Filtration Rate Greater Than 89 mL/min (>89); Glucose,Random 131 mg/dL (74-106); Magnesium 2.6 mg/dL (1.5-2.5); Phosphorus 4.2 mg/dL (2.5-4.9); Potassium 3.7 meq/L (3.5-5.1); Sodium 139 meq/L (136-145)
[2018-05-07 06:39] LABS: Alkaline Phosphatase 76 U/L (45-117); Total Protein 6.9 g/dL (6.4-8.2)
--- NOTE | 2018-05-07 07:54 | P.PNCC ---
Subjective Subjective Remarks/Hospital Course: Patient is approximately 22 years old male obese, was found on the floor by a family member, downtime is unknown. EMS was called, patient was given Narcan with no response, he was intubated on the scene, apparently GCS 3. Found bag of PCP next to the patient. Patient has history of psychiatric disorder ? bipolar disorder and I am told he has attempted suicide in the past. There is also mention about suspicion of ethylene glycol ingestion, but his serum osmolality is 307 his osmolar gap is only 13. Bicarb is 26, ethylene glycol seems unlikely. Ethanol was negative urine drug screen only positive for benzo. I evaluated the patient in the ICU at the [facility]. Patient had a CT of the head which was negative. Rest of the workup unremarkable except for bibasilar atelectasis/aspiration pneumonia. Patient's white count is elevated at 17.1, glucose is 232 lactic acid was 2.8. He received multiple fluid boluses. At this time he is not on any sedation but remains unresponsive no response to deep pain 04/28 Patient remains intubated off sedation unresponsive. Afebrile. 04/29: MRI of the brain revealed no acute intracranial findings. EEG to be performed tomorrow. More arousable and moves all 4 extremities but not following commands. Placed on dexamethasone E drip. 2 feeds will be restarted SUBJECTIVE: 04/30: T-max 101.4. Currently afebrile. No bowel movement since admission. Arousable and follows simple commands late last night but currently on sedation for agitation. Increased FiO2 noted. Will attempt to gently diurese and continue antibiotics for pansensitive staph aureus/group a beta strep sputum 05/01 Patient is sedated with Fentanyl, Diprivan and intubated. T:101.1 at 5am. Placed on APRV overnight. 05/02 Patient is sedated with Diprivan and Fentanyl drips. Tmax 101.3, on PC/AC with PEEP:12, FIO2 80%, IP:30 05/03 Patient is heavily sedated with Diprivan, Fentanyl and Versed . On PC/AC with PEEP: 14 and FIO2 100$ sats 92%, CXR yesterday showed diffuse b/l pulm infiltrates, started on Flolan nebs. Had Tmax 102.6 last night. 05/04 Patient was placed on rotoprone bed yesterday sedated with Diprivan, Versed and Fentanyl infusion and on neuromuscular blockade( Nimbex) On PC/AC His FIO2 requirements is better now on FIO2:50% from 100% with PEEP:14. T:102.6 05/05 Patient remains intubated and sedated on Bumex drio0.5mg/hr, T:99.7 at 3am. On PC/AC with PEEP:1 and FIO2 60%- sats 95%. 05/06 Patient remains sedated and intubated on rotoprone bed with improvements in his oxygenation. Now on PC/AC with PEEP:10, FIO2 40%. Afebrile. On Bumex drip 0.5mg/hr. 05/07 Patient remains on rotoprone bed sedated and on Nimbex drip. He is also on Bumex drip 0.5mg/hr with good urine output . Objective Vital Signs / I&O: Vital Signs 05/06/18 08:00 05/06/18 12:00 05/06/18 12:40 Temperature 99.5 F 99.7 F H Pulse Rate 81 91 H 102 H Respiratory Rate 12 12 Pulse Oximetry 97 89 L 93 L 05/06/18 15:45 05/06/18 16:00 05/06/18 19:27 Temperature 98.1 F Pulse Rate 85 Respiratory Rate 12 12 Pulse Oximetry 94 L 92 L 94 L 05/06/18 20:00 05/07/18 00:00 05/07/18 00:30 Temperature 97.5 F L 98.4 F Pulse Rate 94 H 80 Respiratory Rate 12 Pulse Oximetry 96 96 97 05/07/18 03:38 05/07/18 04:00 Temperature 98.2 F Pulse Rate 97 H Respiratory Rate 12 Pulse Oximetry 96 97 Intake & Output 05/06/18 05/07/18 05/07/18 18:59 06:59 18:59 Intake Total 4647 / 4647 5530.0 / 5530.0 Output Total 8700 / 8700 6000 / 6000 Balance -4053 / -4053 -470.0 / -470.0 Weight 166.8 kg Intake: IV 3848 / 3848 4895.0 / 4895.0 Nimbex Inj 200 MG In NS Inj 480 2500 / 2500 2500 / 2500 ML @ 1 MCG/KG/MIN 27.6 mls/hr IV.CONT TITRATE PRN Rx#: [id number] Versed Inj 50 mg In 50 ml @ 2 100 / 100 100 / 100 MG/HR 2 mls/hr IV.CONT TITRATE PRN Rx#:[id number] Diprivan 1000 mg/100 ml Inj 1, 600 / 600 700 / 700 000 mg In 100 ml @ 5 MCG/KG/MIN 4.77 mls/hr IV.CONT TITRATE PRN Rx#:[id number] Unasyn Inj 3 GM In NS Inj 100 200 / 200 200 / 200 ML @ 200 mls/hr IV.SIG Q6H [facility] Rx#:[id number] Azithromycin Inj 500 MG In NS 250 / 250 Inj 250 ML @ 250 mls/hr IV.SIG Q24H [facility] Rx#:[id number] Vancomycin Inj 2,250 MG In NS 1045.0 / 1045.0 Inj 500 ML @ 250 mls/hr IV.SIG Q8H [facility] Rx#:[id number] fentaNYL 10 mcg/mL Premix Drip 348 / 348 0 / 0 2,500 mcg In 250 ml @ 50 MCG/HR 5 mls/hr IV.SIG TITRATE PRN Rx #:[id number] Flolan (30,000 ng/mL) Neb 90 ML 100 / 100 100 / 100 In NS Inj 10 ML @ 5 mls/hr NEB Q8H [facility] Rx#:[id number] Tube Feeding 549 / 549 335 / 335 Water Bolus Amount 250 / 250 300 / 300 Output: Urine 6000 / 6000 Urine Amount (Catheter) 8700 / 8700 Indwelling Urethral Catheter 8700 / 8700 Other: Date of Last Bowel Movement 05/06/18 05/07/18 # Incontinent Bowel Movements 1 3 Result Diagrams: 05/07/18 04:10 05/07/18 04:15 Other Results: Laboratory Results - last 12 hr 05/07/18 05/07/18 05/07/18 00:21 04:10 04:15 WBC 15.6 H RBC 3.98 L Hgb 11.8 L Hct 35.6 L MCV 89.4 MCH 29.6 MCHC 33.1 RDW 15.1 Plt Count 448 MPV 7.9 Prelim Diff (Auto) Slide review pending Neut % (Auto) 76.0 H Lymph % (Auto) 14.4 [place] % (Auto) 8.7 H Eos % (Auto) 0.5 Baso % (Auto) 0.4 Neut # (Auto) 11.9 H Lymph # (Auto) 2.3 [place]ock # (Auto) 1.4 H Eos # (Auto) 0.1 Baso # (Auto) 0.1 Differential Comment . Sodium 139 Potassium 3.7 Chloride 100 Carbon Dioxide 30.8 Anion Gap 8 BUN 22 H Creatinine 0.70 Estimated GFR Greater than 89 POC Glucose 157 H Random Glucose 131 H Calcium 8.3 L Phosphorus 4.2 Magnesium 2.6 H Total Bilirubin 0.4 AST 17 ALT 73 H Alkaline Phosphatase 76 Total Protein 6.9 Albumin 2.5 L 05/07/18 06:06 WBC RBC Hgb Hct MCV MCH MCHC RDW Plt Count MPV Prelim Diff (Auto) Neut % (Auto) Lymph % (Auto) Glascock % (Auto) Eos % (Auto) Baso % (Auto) Neut # (Auto) Lymph # (Auto) Glascock # (Auto) Eos # (Auto) Baso # (Auto) Differential Comment Sodium Potassium Chloride Carbon Dioxide Anion Gap BUN Creatinine Estimated GFR POC Glucose 138 H Random Glucose Calcium Phosphorus Magnesium Total Bilirubin AST ALT Alkaline Phosphatase Total Protein Albumin Imaging: Head CT 04/27/18 11:31 CONCLUSION: 1. Negative CT Head non contrast. . Abdomen/Pelvis CT 04/27/18 11:35 CONCLUSION: 1. Extensive atelectasis in both lower lobes. 2. The Stone catheter needs to be deflated and advanced into the bladder. The catheter is at the level of the prosthetic urethra. 3. No findings to indicate a bowel obstruction are seen. No free air free fluid is identified. Chest CT 04/27/18 11:35 CONCLUSION: 1. Consolidation both posterior lungs with air bronchograms. This could represent bilateral pneumonia or aspiration. Cervical Spine CT 04/27/18 11:36 CONCLUSION: 1. Negative trauma study. Lumbar Spine CT 04/27/18 11:59 CONCLUSION: 1. Negative for acute process 2. There is no evidence for vertebral compression. Head MRI 04/29/18 07:05 CONCLUSION: 1. Negative MRI of the brain. 2. Inflammatory process cannot be entirely excluded. 3. There are no infarcts identified. Chest X-Ray 05/06/18 08:00 CONCLUSION: No significant improvement. Persistent bilateral airspace disease as described. Supportive devices remain in good position. Objective Remarks: GENERAL: Patient is 22 yo intubated . SKIN: Warm and dry. No rash HEAD: Normocephalic. EYES: No scleral icterus. No injection or drainage. NECK: Supple, trachea midline. No JVD or lymphadenopathy. CARDIOVASCULAR: Regular rate and rhythm without murmurs, gallops, or rubs. RESPIRATORY: Breath sounds equal bilaterally. No accessory muscle use. GASTROINTESTINAL: Abdomen soft, non-tender, nondistended. MUSCULOSKELETAL: No significant peripheral edema. Neuro: intubated, sedated Assessment and Plan - Assessment and Plan Plan: NEURO/PSYCH: Acute metabolic encephalopathy Suspected PCP overdose Suspected ethylene glycol overdose Suicide attempt -PCP was found near the patient ,continue supportive care -On Diprivan. Versed and Fentanyl infusion for sedation and vent synchrony -monitor neuro status. On Neuromuscular blockade( Nimbex)monitor train of 4 -Urine drug screen positive for benzos only -Psychiatric consult after neurological recovery -CT of the head negative. MRI of brain negative. Cannot rule out inflammatory process - EEG 04/30 and follow-up EEG 04/28 with no epileptic activity -Ammonia level: 21 -Neuro is following- Dr. Landon RESP: Acute respiratory failure Bibasilar aspiration pneumonitis Severe ARDS -Continue with vent support keep sats >92% -On PC/AC RR16, IP:25, IT:1.2, PEEP:10 and FIO2 50% -Ventilator bundle. -Bronchodilators ( DuoNeb, Mucomyst nebs Q4), Decrease Solumederol 40mg Q8 - Continue with Flolan nebs ( 30,000 ng/ml) -Check CXR/ABG today s/p bronch 05/02 thick secretions suctioned to clear. No evidence of EBL or bleeding. On rotoprone bed for proning CV: Hypotension Lactic acidosis -Monitor HR and BP keep MAP>65mmHg -Lactic acid 1.7 -On Lopressor 50mg BID -Echo 04/28: EF 60-65%, PASP 36mmHg GI: - IV famotidine -On tube feeds Jevity 1.5 will goal rate 75ml/hr Docusate serum/senna 1 tablet twice daily for bowel regimen. Lactulose 30 cc twice daily and MiraLAX 17 g twice daily. free water 250ml Q12 Renal/FEN/: -Monitor renal function, I/O's, electrolytes replacement as needed -CT abd/pelvis: No findings to indicate a bowel obstruction are seen. No free air free fluid is identified. -On Bumex 0.5mg/hr- UOP 6L ID: MSSA/group A beta strep pneumonia Abx per ID- On Unasyn, Azithromycin, Azithromycin and monitor for signs of infections ( Fever, WBC) Panculture today ( Blood, sputum, UA) 04/27 Sputum: Staph aureus/MSSA and beta strep not group A. 05/03 BC: GPC 07/03 bottles 05/02 bronch cx: Staph Aureus ID is following HEME: Normocytic anemia Leukocytosis -Monitor CBC, coags ENDO/FEN: Hyperglycemia Hypernatremia -Electrolyte replacement per protocol -Sliding scale insulin PROPH: -Bilateral lower extremity SCDs. Subcu heparin/famotidine LINES: -Utilize peripheral IVs, [facility] central line placed in ED 04/27 Discussed with patient's father and updated him on his condition CC time 35 min
--- NOTE | 2018-05-07 07:56 | XR ---
EXAM DATE: 05/07/2018 7:51 AM EST AGE/SEX: 22 years / Male INDICATIONS: Short of breath. CLINICAL DATA: This is the patient's subsequent encounter. Patient reports that signs and symptoms h ave been present for 1 week and indicates a pain score of Nonresponsive. MEDICAL/SURGICAL HISTORY: None. . Tonsillectomy. COMPARISON: [facility] [place]ST 1V SINGLE AP, 05/06/2018. . FINDINGS: There is improvement in aeration of the right upper lung since the prior examination. Slight to moder ate cardiomegaly remains. There is focal consolidation in right lower lobe medially not present on th e prior exam. The left lung is clear. NG tube is present with tip in the stomach. ET tube is present with tip overlapping approximately 5 cm above the roque. CONCLUSION: Right lower lobe medial consolidation not present previously, right upper lobe infiltrate has resolve d since the prior exam. Electronically signed by: Lissett Oscar MD 05/07/2018 7:54 AM EST
[2018-05-07 07:58] LABS: Lymphocytes 17 % (9-44); Metamyelocytes 2 % (0-1); Monocytes 7 % (0-8); Platelet Estimate Normal (Normal); Platelet Morphology Normal (Normal); RBC Morphology Normal (Normal)
[2018-05-07 08:00] LABS: ABG Base Excess 1.9 mmol/L (-2-2); ABG PCO2 52 mmHg (38-42); ABG PO2 79 mmHG (61-120)
[2018-05-07] MEDS: Senna/Docusate Sodium 8.6/50 MG Tablet PO SCH ×2 (08:23→20:21)
[2018-05-07] MEDS: Pantoprazole Inj 40 MG Vial IV.PUSH SCH (08:23)
[2018-05-07] MEDS: Polyethylene Glycol 3350 17 GM Packet PO SCH ×2 (08:23→20:21)
[2018-05-07] MEDS: Metoprolol Tartrate 50 MG Tablet PO SCH ×2 (08:23→20:21)
[2018-05-07 11:16] LABS: Bilirubin,Urine Negative (Negative); Clarity,Urine Clear (Clear); Color,Urine Yellow (Yellw/Straw); Glucose,Urine (UA) Negative (Negative); Hyaline Casts,Urine 5 /lpf (0-3); Leukocyte Esterase,Urine Negative (Negative); Mucus,Urine Few /lpf (Occasional); Nitrite,Urine Negative (Negative); Specific Gravity,Urine 1.025 (1.002-1.035)
[2018-05-07] MEDS: SODIUM CHLOR NEB SCH ×2 (13:13→21:59)
[2018-05-07] MEDS: EPOPROSTENOL NEB SCH ×2 (13:13→21:59)
[2018-05-07] MEDS: Azithromycin Inj 500 MG in Sodium Chlor 0.9% Inj 250 ML IV.SIG SCH (20:23)
[2018-05-08] MEDS: Midazolam 50 MG/50 ML Inj 50 MG/50 ML BAG IV.CONT PRN ×5 (00:06→20:34)
[2018-05-08] MEDS: Insulin NovoLOG Aspart Correctional Sugar Inj SQ SCH ×4 (01:18→19:19)
[2018-05-08] MEDS: Propofol 1000 mg/100 ml Inj 1,000 MG/100 ML BOTTLE IV.CONT PRN ×10 (01:19→22:08)
[2018-05-08] MEDS ORDERED: Pharmacy Ordered Lab Info OTHER ONE (01:45)
[2018-05-08] MEDS: CISATRACURIUM IV.CONT PRN ×9 (01:49→22:07)
[2018-05-08] MEDS: SODIUM CHLOR 0.9% IV.CONT PRN ×9 (01:49→22:07)
[2018-05-08] MEDS: Vancomycin Inj 2,250 MG in Sodium Chlor 0.9% Inj 500 ML IV.SIG SCH ×3 (02:01→17:13)
[2018-05-08] MEDS: Ampicillin/Sulbactam Inj 3 GM in Sodium Chloride 0.9% Inj 100 ML IV.SIG SCH ×3 (03:49→14:58)
[2018-05-08 05:10] LABS: Baso # (Auto) 0.1 th/mm3 (0.0-0.2); Baso % (Auto) 0.4 % (0.0-2.0); Eos # (Auto) 0.2 th/mm3 (0.0-0.4); Eos % (Auto) 1.5 % (0.0-4.0); Hematocrit 33.9 % (39.0-51.0); Hemoglobin 11.4 gm/dL (13.0-17.0); Lymph # (Auto) 2.4 th/mm3 (1.0-4.8); Lymph % (Auto) 16.8 % (9.0-44.0); Mean Corpuscular HGB Conc 33.7 % (32.0-36.0); Mean Corpuscular Hemoglobin 29.8 pg (27.0-34.0); Mean Corpuscular Volume 88.5 fL (80.0-100.0); Mean Platelet Volume 7.7 fL (7.0-11.0); Mono # (Auto) 1.2 th/mm3 (0.0-0.9); Mono % (Auto) 8.3 % (0.0-8.0); Neut # (Auto) 10.6 th/mm3 (1.8-7.7); Platelet Count 436 th/mm3 (150-450); Red Blood Count 3.83 mil/mm3 (4.50-5.90); Red Cell Distribution Width 15.1 % (11.6-17.2); White Blood Count 14.6 th/mm3 (4.0-11.0)
[2018-05-08] MEDS: MethylPREDNISolone Sod Succinate Inj 40 MG/ML Vial IV.PUSH SCH ×3 (05:16→21:28)
[2018-05-08] MEDS: Heparin - SQ 10,000 UNITS/ML Vial SQ SCH ×2 (05:16→19:19)
[2018-05-08 05:41] LABS: Lymphocytes 13 % (9-44); Monocytes 7 % (0-8); Myelocytes 1 % (0-0)
[2018-05-08 05:42] LABS: Albumin 2.5 g/dL (3.4-5.0); Anion Gap 7 meq/L (5-15); Aspartate Aminotransferase 11 U/L (15-39); Blood Urea Nitrogen 21 mg/dL (7-18); Calcium 8.2 mg/dL (8.5-10.1); Chloride 99 meq/L (98-107); Glomerular Filtration Rate Greater Than 89 mL/min (>89); Glucose,Random 131 mg/dL (74-106); Magnesium 2.4 mg/dL (1.5-2.5); Potassium 3.7 meq/L (3.5-5.1); Sodium 138 meq/L (136-145)
[2018-05-08 05:43] LABS: Alanine Aminotransferase 69 U/L (9-52); Phosphorus 3.3 mg/dL (2.5-4.9)
[2018-05-08 05:44] LABS: Toxic Granulation 1+
[2018-05-08 05:45] LABS: Alkaline Phosphatase 74 U/L (45-117); Platelet Morphology Normal (Normal); Total Protein 6.5 g/dL (6.4-8.2)
[2018-05-08] MEDS: fentaNYL 10 mcg/mL Premix Drip 2,500 MCG/250 ML BAG IV.SIG PRN ×2 (06:16→16:17)
[2018-05-08 07:58] LABS: ABG PCO2 40 mmHg (38-42); ABG PO2 75 mmHG (61-120)
--- NOTE | 2018-05-08 07:59 | P.PNNEU ---
Subjective Subjective Comments: no acute events Active Medications: Active Medications Acetaminophen (Tylenol Liq) 650 mg PO Q6H PRN PRN Reason: FEVER Last Admin: 05/04/18 03:55 Dose: 650 mg Al Hydroxide/Mg Hydroxide (Milk Of Magnesia Liq) 30 ml PO Q12H PRN PRN Reason: Mild Constipation Albuterol (Albuterol Neb (Prn)) 2.5 mg NEB Q2HR NEB PRN PRN Reason: SHORTNESS OF BREATH/WHEEZING Last Admin: 05/08/18 07:37 Dose: 2.5 mg Artificial Tears (Tears Naturale Opth Drops) 1 drop EACH EYE Q8H [facility] Last Admin: 05/07/18 23:16 Dose: Not Given Bisacodyl (Dulcolax Supp) 10 mg RECTAL DAILY PRN PRN Reason: SEVERE CONSITIPATION Dextrose (D50w Vial) 50 ml IV.PUSH UNSCH PRN PRN Reason: PER HYPOGLYCEMIA PROTOCOL Glucagon (Glucagon Inj) 1 mg OTHER PRN PRN PRN Reason: for Hypoglycemia Protocol Heparin Sodium (Porcine) (Heparin Inj) 5,000 units SQ Q12H [facility] Last Admin: 05/08/18 05:16 Dose: 5,000 units Magnesium Sulfate 4 gm/ Sodium (Chloride) 100 mls @ 50 mls/hr IV.SIG UNSCH PRN PRN Reason: For Magnesium 0.9 - 1.1 mg/dL Potassium Chloride (Kcl 40 Meq Premix Inj) 40 meq in 100 mls @ 25 mls/hr IV.SIG Q2H PRN PRN Reason: For Potassium 2.8 - 3.2 mEq/L Last Infusion: 05/02/18 22:49 Dose: Infused Potassium Chloride (Kcl 20 Meq Premix Inj) 20 meq in 100 mls @ 50 mls/hr IV.SIG Q2H PRN PRN Reason: For Potassium 3.3 - 3.5 mEq/L Potassium Chloride (Kcl 40 Meq Premix Inj) 40 meq in 100 mls @ 25 mls/hr IV.SIG UNSCH PRN PRN Reason: For Potassium 3.3 - 3.5 mEq/L Last Infusion: 05/04/18 05:27 Dose: Infused Potassium Chloride (Kcl 20 Meq Premix Inj) 20 meq in 100 mls @ 50 mls/hr IV.SIG Q2H PRN PRN Reason: For Potassium 2.8 - 3.2 mEq/L Potassium Phosphate 30 mmol/ (Sodium Chloride) 260 mls @ 42 mls/hr IV.SIG UNSCH PRN PRN Reason: SEE LABEL COMMENTS Magnesium Sulfate 2 gm/ Sodium (Chloride) 100 mls @ 50 mls/hr IV.SIG UNSCH PRN PRN Reason: For Magnesium 1.2 - 1.6 mg/dL Sodium Phosphate 30 mmol/ (Sodium Chloride) 260 mls @ 42 mls/hr IV.SIG UNSCH PRN PRN Reason: For Phosphorus < 2.5 mg/dL Propofol (Diprivan 1000 Mg/100 Ml Inj) 1,000 mg in 100 mls @ 4.77 mls/hr IV.CONT TITRATE PRN; Protocol PRN Reason: Per Protocol Last Admin: 05/08/18 06:52 Dose: 50 mcg/kg/min, 47.7 mls/hr Fentanyl (Fentanyl 10 Mcg/Ml Premix Drip) 2,500 mcg in 250 mls @ 5 mls/hr IV.SIG TITRATE PRN; Protocol PRN Reason: Per Protocol Last Admin: 05/08/18 06:16 Dose: 250 mcg/hr, 25 mls/hr Dexmedetomidine HCl 200 mcg/ (Sodium Chloride) 50 mls @ 9.01 mls/hr IV.CONT TITRATE PRN; Protocol PRN Reason: Per Protocol Last Titration: 04/30/18 22:04 Dose: Infused Midazolam HCl (Versed Inj) 50 mg in 50 mls @ 2 mls/hr IV.CONT TITRATE PRN; Protocol PRN Reason: Per Protocol Last Admin: 05/08/18 06:05 Dose: 10 mg/hr, 10 mls/hr Epoprostenol Sodium 90 ml/ (Sodium Chloride) 100 mls @ 5 mls/hr NEB Q8H [facility] Last Admin: 05/07/18 21:59 Dose: 5 mls/hr Azithromycin 500 mg/ Sodium (Chloride) 250 mls @ 250 mls/hr IV.SIG Q24H [facility] Last Infusion: 05/07/18 22:31 Dose: Infused Bumetanide (Bumex Inj) 25 mg in 100 mls @ 2 mls/hr IV.CONT .Q24H [facility] Last Admin: 05/05/18 19:37 Dose: 0.5 mg/hr, 2 mls/hr Cisatracurium Besylate 200 mg/ (Sodium Chloride) 500 mls @ 27.6 mls/hr IV.CONT TITRATE PRN; Protocol PRN Reason: Per Protocol Last Admin: 05/08/18 04:35 Dose: 7 mcg/kg/min, 193.2 mls/hr Ampicillin Sodium/Sulbactam (Sodium 3 gm/ Sodium Chloride) 100 mls @ 200 mls/ hr IV.SIG Q6H [facility] Last Infusion: 05/08/18 04:38 Dose: Infused Vancomycin HCl 2,250 mg/ (Sodium Chloride) 522.5 mls @ 250 mls/hr IV.SIG Q8H [facility] Last Infusion: 05/08/18 04:38 Dose: Infused Insulin Aspart (Novolog Insulin Correctional Sugar Inj) 0 unit SQ Q6HR [facility]; Protocol Last Admin: 05/08/18 06:27 Dose: Not Given Lactulose (Lactulose Liq) 30 ml PO DAILY PRN PRN Reason: SEVERE CONSITIPATION Lactulose (Lactulose Liq) 30 ml PO BID [facility] Last Admin: 05/07/18 20:21 Dose: 30 ml Magnesium Oxide (Mag-Ox) 800 mg PO UNSCH PRN PRN Reason: For Magnesium 1.2 - 1.6 mg/dL Methylprednisolone Sodium Succinate (Solumedrol Inj) 40 mg IV.PUSH Q8HR [facility] Last Admin: 05/08/18 05:16 Dose: 40 mg Metoprolol Tartrate (Lopressor) 50 mg PO BID [facility] Last Admin: 05/07/18 20:21 Dose: 50 mg Ondansetron HCl (Zofran Inj) 4 mg IV.PUSH Q6H PRN PRN Reason: NAUSEA OR VOMITING Pantoprazole Sodium (Protonix Inj) 40 mg IV.PUSH DAILY [facility] Last Admin: 05/07/18 08:23 Dose: 40 mg Pharmacy Profile Note (Vancomycin Consult Pharmacy) 1 each OTHER UNSCH PRN PRN Reason: Pharmacy to dose Polyethylene Glycol (Miralax) 17 gm PO BID [facility] Last Admin: 05/07/18 20:21 Dose: 17 gm Potassium Bicarb/Potassium Chloride (K-Lyte Cl Eff) 50 meq PO UNSCH PRN PRN Reason: For Potassium 3.3 - 3.5 mEq/L Potassium Phosphate (K-Phos Original) 2,000 mg PO Q4H PRN PRN Reason: Phosphorus Less Than 2.5 mg/dL Potassium Phosphate (K-Phos Original) 2,000 mg PO UNSCH PRN PRN Reason: SEE LABEL COMMENTS Senna/Docusate Sodium (Jemima-Colace) 1 tab PO BID [facility] Last Admin: 05/07/18 20:21 Dose: 1 tab Sennosides (Senokot) 17.2 mg PO Q12H PRN PRN Reason: Moderate Constipation Sodium Chloride (Ns Flush) 2 ml IV.FLUSH BID [facility] Last Admin: 05/07/18 20:22 Dose: 2 ml Sodium Chloride (Ns Flush) 2 ml IV.FLUSH PRN PRN PRN Reason: FLUSH AFTER USING IV ACCESS Sterile Water (Free Water) 250 ml G-TUBE Q12HR [facility] Last Admin: 05/07/18 20:23 Dose: 250 ml Terbutaline Sulfate (Brethine Inj) 1 mg SQ UNSCH PRN PRN Reason: For Extravasation Allergies/Adverse Reactions: Allergies Allergy/AdvReac Type Severity Reaction Status Date / Time shellfish derived Allergy Anaphylaxis Verified 04/29/18 13:12 No Known Allergies Allergy Uncoded 04/29/18 13:12 Review of Systems unobtainable due to endotracheal tube, unobtainable due to mental status Physical Exam Vital signs: Vital Signs 05/07/18 08:00 05/07/18 08:04 05/07/18 09:00 Temperature 98.6 F Pulse Rate 118 H 94 H Respiratory Rate Pulse Oximetry 89 L 88 L 05/07/18 11:11 05/07/18 12:00 05/07/18 16:00 Temperature 98.7 F 99 F Pulse Rate 97 H 117 H Respiratory Rate 14 Pulse Oximetry 94 L 89 L 95 05/07/18 16:35 05/07/18 20:00 05/07/18 20:13 Temperature 97.2 F L Pulse Rate 103 H Respiratory Rate 14 14 14 Pulse Oximetry 94 L 93 L 93 L 05/08/18 00:00 05/08/18 00:10 05/08/18 04:00 Temperature 98.8 F 98.4 F Pulse Rate 95 H 92 H Respiratory Rate 14 14 14 Pulse Oximetry 93 L 93 L 91 L 05/08/18 04:49 05/08/18 07:38 Temperature Pulse Rate 105 H Respiratory Rate 14 14 Pulse Oximetry 94 L 92 L Intake & Output 05/07/18 05/08/18 05/08/18 18:59 06:59 18:59 Intake Total 4089.5 / 4089.5 5486.0 / 5486.0 Output Total 5000 / 5000 4550 / 4550 Balance -910.5 / -910.5 936.0 / 936.0 Weight 170 kg Intake: IV 3172.5 / 3172.5 4795.0 / 4795.0 Nimbex Inj 200 MG In NS Inj 480 1500 / 1500 2000 / 2000 ML @ 1 MCG/KG/MIN 27.6 mls/hr IV.CONT TITRATE PRN Rx#: [id number] Versed Inj 50 mg In 50 ml @ 2 100 / 100 100 / 100 MG/HR 2 mls/hr IV.CONT TITRATE PRN Rx#:[id number] Diprivan 1000 mg/100 ml Inj 1, 500 / 500 600 / 600 000 mg In 100 ml @ 5 MCG/KG/MIN 4.77 mls/hr IV.CONT TITRATE PRN Rx#:[id number] Unasyn Inj 3 GM In NS Inj 100 200 / 200 200 / 200 ML @ 200 mls/hr IV.SIG Q6H [facility] Rx#:[id number] Azithromycin Inj 500 MG In NS 250 / 250 Inj 250 ML @ 250 mls/hr IV.SIG Q24H [facility] Rx#:[id number] Vancomycin Inj 2,250 MG In NS 522.5 / 522.5 1045.0 / 1045.0 Inj 500 ML @ 250 mls/hr IV.SIG Q8H [facility] Rx#:[id number] fentaNYL 10 mcg/mL Premix Drip 250 / 250 500 / 500 2,500 mcg In 250 ml @ 50 MCG/HR 5 mls/hr IV.SIG TITRATE PRN Rx #:[id number] Flolan (30,000 ng/mL) Neb 90 ML 100 / 100 100 / 100 In NS Inj 10 ML @ 5 mls/hr NEB Q8H [facility] Rx#:[id number] Tube Feeding 517 / 517 381 / 381 Water Bolus Amount 400 / 400 310 / 310 Output: Urine 4500 / 4500 Stool 500 / 500 200 / 200 Urine Amount (Catheter) 4350 / 4350 Indwelling Urethral Catheter 4350 / 4350 Other: Date of Last Bowel Movement 05/07/18 05/08/18 Narrative: GENERAL: in NAD, obese SKIN: Warm and dry. HEAD: Atraumatic. Normocephalic. NECK: Intubated CARDIOVASCULAR: Regular rate and rhythm. RESPIRATORY: Intubated MUSCULOSKELETAL: Extremities without clubbing, cyanosis, or edema. No obvious deformities. NEUROLOGICAL: Intubated, on sedation and paralytics, roto prone, limited exam, prone position PSYCHIATRIC: Calm - Constitutional no acute distress - Routine HEENT Exam Head: Present: normocephalic - Urinary Catheter Management Indwelling Urethral Catheter Cath placed during this visit: yes, but has since been removed by the nurse Reason for continuing: Acute urinary retention Insertion date: 04/30/18 Insertion time: 18:00 Removal date: 04/28/18 Removal time: 18:45 Straight Cath placed during this visit: yes, but has since been removed by the nurse Reason for continuing: Acute urinary retention Insertion date: 04/30/18 Insertion time: 05:00 Removal date: 04/30/18 Removal time: 05:00 Objective Laboratory Results - last 24 hr 05/07/18 05/07/18 05/07/18 04:10 07:50 10:00 WBC RBC Hgb Hct MCV MCH MCHC RDW Plt Count MPV Prelim Diff (Auto) Neut % (Auto) Lymph % (Auto) [place] % (Auto) Eos % (Auto) Baso % (Auto) Neut # (Auto) Lymph # (Auto) [place] # (Auto) Eos # (Auto) Baso # (Auto) WBC Differential Manual diff final Seg Neuts % (Manual) 66 Band Neuts % (Manual) 8 H Lymphocytes % (Manual) 17 Monocytes % (Manual) 7 Metamyelocytes % (Man) 2 H Myelocytes % (Man) Abs Neuts (Manual) 11.9 H Differential Comment Toxic Granulation Platelet Estimate Normal Platelet Morphology Normal RBC Morphology Normal Puncture Site Art line Patient Temperature 98.6 O2 Saturation 91 ABG pH 7.34 L ABG pCO2 52 H* ABG pO2 79 ABG HCO3 27 H ABG O2 Content 16.0 ABG Base Excess 1.9 ABG Methemoglobin 1.7 Hemoglobin 12.4 Carboxyhemoglobin 0.6 O2 Delivery Device Ventilator Vent Setting Pc/ac Inspired O2 70 Critical Value Yes Sodium Potassium Chloride Carbon Dioxide Anion Gap BUN Creatinine Estimated GFR POC Glucose Random Glucose Calcium Phosphorus Magnesium Total Bilirubin AST ALT Alkaline Phosphatase Total Protein Albumin Urine Color Yellow Urine Clarity Clear Urine pH 5.0 Ur Specific [place] 1.025 Urine Protein Negative Urine Glucose (UA) Negative Urine Ketones Negative Urine Occult Blood Negative Urine Nitrate Negative Urine Bilirubin Negative Urine Urobilinogen Less than 2 Ur Leukocyte Esterase Negative Urine RBC Less than 1 Urine WBC Less than 1 Hyaline Casts 5 Urine Mucus Few H Micro UA Comment Cath-culture not ind Ur Microscopic Review Not Reportable Urine Culture Comments Cath-cult not ind Vancomycin Trough 05/07/18 05/07/18 05/08/18 11:38 17:12 00:19 WBC RBC Hgb Hct MCV MCH MCHC RDW Plt Count MPV Prelim Diff (Auto) Neut % (Auto) Lymph % (Auto) [place] % (Auto) Eos % (Auto) Baso % (Auto) Neut # (Auto) Lymph # (Auto) [place] # (Auto) Eos # (Auto) Baso # (Auto) WBC Differential Seg Neuts % (Manual) Band Neuts % (Manual) Lymphocytes % (Manual) Monocytes % (Manual) Metamyelocytes % (Man) Myelocytes % (Man) Abs Neuts (Manual) Differential Comment Toxic Granulation Platelet Estimate Platelet Morphology RBC Morphology Puncture Site Patient Temperature O2 Saturation ABG pH ABG pCO2 ABG pO2 ABG HCO3 ABG O2 Content ABG Base Excess ABG Methemoglobin Hemoglobin Carboxyhemoglobin O2 Delivery Device Vent Setting Inspired O2 Critical Value Sodium Potassium Chloride Carbon Dioxide Anion Gap BUN Creatinine Estimated GFR POC Glucose 173 H 130 H 118 H Random Glucose Calcium Phosphorus Magnesium Total Bilirubin AST ALT Alkaline Phosphatase Total Protein Albumin Urine Color Urine Clarity Urine pH Ur Specific [place] Urine Protein Urine Glucose (UA) Urine Ketones Urine Occult Blood Urine Nitrate Urine Bilirubin Urine Urobilinogen Ur Leukocyte Esterase Urine RBC Urine WBC Hyaline Casts Urine Mucus Micro UA Comment Ur Microscopic Review Urine Culture Comments Vancomycin Trough 05/08/18 05/08/18 05/08/18 01:45 03:55 03:55 WBC 14.6 H RBC 3.83 L Hgb 11.4 L Hct 33.9 L MCV 88.5 MCH 29.8 MCHC 33.7 RDW 15.1 Plt Count 436 MPV 7.7 Prelim Diff (Auto) Slide review pending Neut % (Auto) 73.0 H Lymph % (Auto) 16.8 [place] % (Auto) 8.3 H Eos % (Auto) 1.5 Baso % (Auto) 0.4 Neut # (Auto) 10.6 H Lymph # (Auto) 2.4 [place] # (Auto) 1.2 H Eos # (Auto) 0.2 Baso # (Auto) 0.1 WBC Differential Manual diff final Seg Neuts % (Manual) 73 H Band Neuts % (Manual) 6 Lymphocytes % (Manual) 13 Monocytes % (Manual) 7 Metamyelocytes % (Man) Myelocytes % (Man) 1 H Abs Neuts (Manual) 11.7 H Differential Comment . Toxic Granulation 1+ H Platelet Estimate High H Platelet Morphology Normal RBC Morphology Puncture Site Patient Temperature O2 Saturation ABG pH ABG pCO2 ABG pO2 ABG HCO3 ABG O2 Content ABG Base Excess ABG Methemoglobin Hemoglobin Carboxyhemoglobin O2 Delivery Device Vent Setting Inspired O2 Critical Value Sodium 138 Potassium 3.7 Chloride 99 Carbon Dioxide 32.0 Anion Gap 7 BUN 21 H Creatinine 0.73 Estimated GFR Greater than 89 POC Glucose Random Glucose 131 H Calcium 8.2 L Phosphorus 3.3 Magnesium 2.4 Total Bilirubin 0.5 AST 11 L ALT 69 H Alkaline Phosphatase 74 Total Protein 6.5 Albumin 2.5 L Urine Color Urine Clarity Urine pH Ur Specific [place] Urine Protein Urine Glucose (UA) Urine Ketones Urine Occult Blood Urine Nitrate Urine Bilirubin Urine Urobilinogen Ur Leukocyte Esterase Urine RBC Urine WBC Hyaline Casts Urine Mucus Micro UA Comment Ur Microscopic Review Urine Culture Comments Vancomycin Trough 12.5 H Microbiology 05/03/18 10:10 Aerobic Blood Culture - Preliminary Blood - Peripheral Staphylococcus coag negative Anaerobic Blood Culture - Preliminary No growth in 4 days 05/03/18 11:20 Aerobic Blood Culture - Preliminary Blood - Peripheral No growth in 4 days Anaerobic Blood Culture - Preliminary No growth in 4 days Review/Management - Diagnosis (1) Acute metabolic encephalopathy Code(s): G93.41 - Metabolic encephalopathy Status: Deleted Current Visit: Yes (2) Acute respiratory failure Code(s): J96.00 - Acute respiratory failure, unspecified whether with hypoxia or hypercapnia Status: Deleted Current Visit: Yes (3) Aspiration pneumonitis Code(s): J69.0 - Pneumonitis due to inhalation of food and vomit Status: Deleted Current Visit: Yes (4) PCP intoxication Code(s): F16.929 - Hallucinogen use, unspecified with intoxication, unspecified Status: Deleted Current Visit: Yes (5) Toxic encephalopathy Code(s): G92 - Toxic encephalopathy Status: Acute Current Visit: Yes - Review/Management Plan: Drug-induced encephalopathy. Possible PCP although exact substance in the bag is not known; father thinks he may have overdosed on Son[place] which case he should slowly wake up CT brain negative now with ARDS, pneumonia causing fevers. ID following mri nml. eeg negative for sz Recommendation limited neuro exam 2/2 sedation/paralytics/rotoprone peep apparently improving down to 10 followed by CCM and ID Discussed with ZACK
[2018-05-08] MEDS: Pantoprazole Inj 40 MG Vial IV.PUSH SCH (08:00)
[2018-05-08] MEDS: Senna/Docusate Sodium 8.6/50 MG Tablet PO SCH ×2 (08:00→20:50)
[2018-05-08] MEDS: Metoprolol Tartrate 50 MG Tablet PO SCH ×2 (08:01→20:49)
[2018-05-08] MEDS: Artificial Tears Opth Drops 15 ML Bottle EACH EYE SCH ×3 (08:01→23:53)
[2018-05-08] MEDS: Polyethylene Glycol 3350 17 GM Packet PO SCH ×2 (08:02→20:49)
--- NOTE | 2018-05-08 08:14 | P.PNCC ---
Subjective Subjective Remarks/Hospital Course: Patient is approximately 22 years old male obese, was found on the floor by a family member, downtime is unknown. EMS was called, patient was given Narcan with no response, he was intubated on the scene, apparently GCS 3. Found bag of PCP next to the patient. Patient has history of psychiatric disorder ? bipolar disorder and I am told he has attempted suicide in the past. There is also mention about suspicion of ethylene glycol ingestion, but his serum osmolality is 307 his osmolar gap is only 13. Bicarb is 26, ethylene glycol seems unlikely. Ethanol was negative urine drug screen only positive for benzo. I evaluated the patient in the ICU at the [facility]. Patient had a CT of the head which was negative. Rest of the workup unremarkable except for bibasilar atelectasis/aspiration pneumonia. Patient's white count is elevated at 17.1, glucose is 232 lactic acid was 2.8. He received multiple fluid boluses. At this time he is not on any sedation but remains unresponsive no response to deep pain 04/28 Patient remains intubated off sedation unresponsive. Afebrile. 04/29: MRI of the brain revealed no acute intracranial findings. EEG to be performed tomorrow. More arousable and moves all 4 extremities but not following commands. Placed on dexamethasone E drip. 2 feeds will be restarted SUBJECTIVE: 04/30: T-max 101.4. Currently afebrile. No bowel movement since admission. Arousable and follows simple commands late last night but currently on sedation for agitation. Increased FiO2 noted. Will attempt to gently diurese and continue antibiotics for pansensitive staph aureus/group a beta strep sputum 05/01 Patient is sedated with Fentanyl, Diprivan and intubated. T:101.1 at 5am. Placed on APRV overnight. 05/02 Patient is sedated with Diprivan and Fentanyl drips. Tmax 101.3, on PC/AC with PEEP:12, FIO2 80%, IP:30 05/03 Patient is heavily sedated with Diprivan, Fentanyl and Versed . On PC/AC with PEEP: 14 and FIO2 100$ sats 92%, CXR yesterday showed diffuse b/l pulm infiltrates, started on Flolan nebs. Had Tmax 102.6 last night. 05/04 Patient was placed on rotoprone bed yesterday sedated with Diprivan, Versed and Fentanyl infusion and on neuromuscular blockade( Nimbex) On PC/AC His FIO2 requirements is better now on FIO2:50% from 100% with PEEP:14. T:102.6 05/05 Patient remains intubated and sedated on Bumex drio0.5mg/hr, T:99.7 at 3am. On PC/AC with PEEP:1 and FIO2 60%- sats 95%. 05/06 Patient remains sedated and intubated on rotoprone bed with improvements in his oxygenation. Now on PC/AC with PEEP:10, FIO2 40%. Afebrile. On Bumex drip 0.5mg/hr. 05/07 Patient remains on rotoprone bed sedated and on Nimbex drip. He is also on Bumex drip 0.5mg/hr with good urine output . 05/08 Patient remains sedated and intubated. On Flolan, and Bumex drip. Afebrile. Objective Vital Signs / I&O: Vital Signs 05/07/18 09:00 05/07/18 11:11 05/07/18 12:00 Temperature 98.7 F Pulse Rate 94 H 97 H Respiratory Rate 14 Pulse Oximetry 94 L 89 L 05/07/18 16:00 05/07/18 16:35 05/07/18 20:00 Temperature 99 F 97.2 F L Pulse Rate 117 H 103 H Respiratory Rate 14 14 Pulse Oximetry 95 94 L 93 L 05/07/18 20:13 05/08/18 00:00 05/08/18 00:10 Temperature 98.8 F Pulse Rate 95 H Respiratory Rate 14 14 14 Pulse Oximetry 93 L 93 L 93 L 05/08/18 04:00 05/08/18 04:49 05/08/18 07:38 Temperature 98.4 F Pulse Rate 92 H 105 H Respiratory Rate 14 14 14 Pulse Oximetry 91 L 94 L 92 L Intake & Output 05/07/18 05/08/18 05/08/18 18:59 06:59 18:59 Intake Total 4089.5 / 4089.5 5486.0 / 5486.0 500 / 500 Output Total 5000 / 5000 4550 / 4550 Balance -910.5 / -910.5 936.0 / 936.0 500 / 500 Weight 170 kg Intake: IV 3172.5 / 3172.5 4795.0 / 4795.0 500 / 500 Nimbex Inj 200 MG In NS Inj 480 1500 / 1500 2000 / 2000 500 / 500 ML @ 1 MCG/KG/MIN 27.6 mls/hr IV.CONT TITRATE PRN Rx#: [id number] Versed Inj 50 mg In 50 ml @ 2 100 / 100 100 / 100 MG/HR 2 mls/hr IV.CONT TITRATE PRN Rx#:[id number] Diprivan 1000 mg/100 ml Inj 1, 500 / 500 600 / 600 000 mg In 100 ml @ 5 MCG/KG/MIN 4.77 mls/hr IV.CONT TITRATE PRN Rx#:[id number] Unasyn Inj 3 GM In NS Inj 100 200 / 200 200 / 200 ML @ 200 mls/hr IV.SIG Q6H [facility] Rx#:[id number] Azithromycin Inj 500 MG In NS 250 / 250 Inj 250 ML @ 250 mls/hr IV.SIG Q24H [facility] Rx#:[id number] Vancomycin Inj 2,250 MG In NS 522.5 / 522.5 1045.0 / 1045.0 Inj 500 ML @ 250 mls/hr IV.SIG Q8H [facility] Rx#:[id number] fentaNYL 10 mcg/mL Premix Drip 250 / 250 500 / 500 2,500 mcg In 250 ml @ 50 MCG/HR 5 mls/hr IV.SIG TITRATE PRN Rx #:[id number] Flolan (30,000 ng/mL) Neb 90 ML 100 / 100 100 / 100 In NS Inj 10 ML @ 5 mls/hr NEB Q8H [facility] Rx#:[id number] Tube Feeding 517 / 517 381 / 381 Water Bolus Amount 400 / 400 310 / 310 Output: Urine 4500 / 4500 Stool 500 / 500 200 / 200 Urine Amount (Catheter) 4350 / 4350 Indwelling Urethral Catheter 4350 / 4350 Other: Date of Last Bowel Movement 05/07/18 05/08/18 Result Diagrams: 05/08/18 03:55 05/08/18 03:55 Other Results: Laboratory Results - last 12 hr 05/08/18 05/08/18 05/08/18 00:19 01:45 03:55 WBC 14.6 H RBC 3.83 L Hgb 11.4 L Hct 33.9 L MCV 88.5 MCH 29.8 MCHC 33.7 RDW 15.1 Plt Count 436 MPV 7.7 Prelim Diff (Auto) Slide review pending Neut % (Auto) 73.0 H Lymph % (Auto) 16.8 [place] % (Auto) 8.3 H Eos % (Auto) 1.5 Baso % (Auto) 0.4 Neut # (Auto) 10.6 H Lymph # (Auto) 2.4 [place] # (Auto) 1.2 H Eos # (Auto) 0.2 Baso # (Auto) 0.1 WBC Differential Manual diff final Seg Neuts % (Manual) 73 H Band Neuts % (Manual) 6 Lymphocytes % (Manual) 13 Monocytes % (Manual) 7 Myelocytes % (Man) 1 H Abs Neuts (Manual) 11.7 H Differential Comment . Toxic Granulation 1+ H Platelet Estimate High H Platelet Morphology Normal Puncture Site Patient Temperature O2 Saturation ABG pH ABG pCO2 ABG pO2 ABG HCO3 ABG O2 Content ABG Base Excess ABG Methemoglobin Noah Test Hemoglobin Carboxyhemoglobin O2 Delivery Device Vent Setting Inspired O2 Critical Value Sodium Potassium Chloride Carbon Dioxide Anion Gap BUN Creatinine Estimated GFR POC Glucose 118 H Random Glucose Calcium Phosphorus Magnesium Total Bilirubin AST ALT Alkaline Phosphatase Total Protein Albumin Vancomycin Trough 12.5 H 05/08/18 05/08/18 03:55 07:50 WBC RBC Hgb Hct MCV MCH MCHC RDW Plt Count MPV Prelim Diff (Auto) Neut % (Auto) Lymph % (Auto) [place] % (Auto) Eos % (Auto) Baso % (Auto) Neut # (Auto) Lymph # (Auto) [place] # (Auto) Eos # (Auto) Baso # (Auto) WBC Differential Seg Neuts % (Manual) Band Neuts % (Manual) Lymphocytes % (Manual) Monocytes % (Manual) Myelocytes % (Man) Abs Neuts (Manual) Differential Comment Toxic Granulation Platelet Estimate Platelet Morphology Puncture Site Art line Patient Temperature 98.6 O2 Saturation 93 ABG pH 7.47 H ABG pCO2 40 ABG pO2 75 ABG HCO3 29 H ABG O2 Content 15.6 ABG Base Excess 5.0 H ABG Methemoglobin 1.8 Noah Test Present Hemoglobin 11.9 L Carboxyhemoglobin 0.8 O2 Delivery Device Ventilator Vent Setting Pc12/25ip/1.2/+10 Inspired O2 60 Critical Value No Sodium 138 Potassium 3.7 Chloride 99 Carbon Dioxide 32.0 Anion Gap 7 BUN 21 H Creatinine 0.73 Estimated GFR Greater than 89 POC Glucose Random Glucose 131 H Calcium 8.2 L Phosphorus 3.3 Magnesium 2.4 Total Bilirubin 0.5 AST 11 L ALT 69 H Alkaline Phosphatase 74 Total Protein 6.5 Albumin 2.5 L Vancomycin Trough Imaging: Head CT 04/27/18 11:31 CONCLUSION: 1. Negative CT Head non contrast. . Abdomen/Pelvis CT 04/27/18 11:35 CONCLUSION: 1. Extensive atelectasis in both lower lobes. 2. The Stone catheter needs to be deflated and advanced into the bladder. The catheter is at the level of the prosthetic urethra. 3. No findings to indicate a bowel obstruction are seen. No free air free fluid is identified. Chest CT 04/27/18 11:35 CONCLUSION: 1. Consolidation both posterior lungs with air bronchograms. This could represent bilateral pneumonia or aspiration. Cervical Spine CT 04/27/18 11:36 CONCLUSION: 1. Negative trauma study. Lumbar Spine CT 04/27/18 11:59 CONCLUSION: 1. Negative for acute process 2. There is no evidence for vertebral compression. Head MRI 04/29/18 07:05 CONCLUSION: 1. Negative MRI of the brain. 2. Inflammatory process cannot be entirely excluded. 3. There are no infarcts identified. Chest X-Ray 05/07/18 00:00 CONCLUSION: Right lower lobe medial consolidation not present previously, right upper lobe infiltrate has resolved since the prior exam. Objective Remarks: GENERAL: Patient is 22 yo intubated . SKIN: Warm and dry. No rash HEAD: Normocephalic. EYES: No scleral icterus. No injection or drainage. NECK: Supple, trachea midline. No JVD or lymphadenopathy. CARDIOVASCULAR: Regular rate and rhythm without murmurs, gallops, or rubs. RESPIRATORY: Breath sounds equal bilaterally. No accessory muscle use. GASTROINTESTINAL: Abdomen soft, non-tender, nondistended. MUSCULOSKELETAL: No significant peripheral edema. Neuro: intubated, sedated Assessment and Plan - Assessment and Plan Plan: NEURO/PSYCH: Acute metabolic encephalopathy Suspected PCP overdose Suspected ethylene glycol overdose Suicide attempt -PCP was found near the patient ,continue supportive care -On Diprivan. Versed and Fentanyl infusion for sedation and vent synchrony -monitor neuro status. On Neuromuscular blockade( Nimbex)monitor train of 4 -Urine drug screen positive for benzos only -Psychiatric consult after neurological recovery -CT of the head negative. MRI of brain negative. Cannot rule out inflammatory process - EEG 04/30 and follow-up EEG 04/28 with no epileptic activity -Ammonia level: 21 -Neuro is following- Dr. Landon RESP: Acute respiratory failure Bibasilar aspiration pneumonitis Severe ARDS -Continue with vent support keep sats >92% -On PC/AC RR14, IP:1.20, IT:1.2, PEEP:10 and FIO2 60%. Decrease FIO2 50% as kit -Ventilator bundle. -Bronchodilators ( DuoNeb, Mucomyst nebs Q4), Decrease Solumederol 40mg Q8 - Continue with Flolan nebs ( 30,000 ng/ml) CXR 05/07: Right lower lobe medial consolidation not present previously, right upper lobe infiltrate has resolved since the prior exam. s/p bronch 05/02 thick secretions suctioned to clear. No evidence of EBL or bleeding. On rotoprone bed for proning CV: Hypotension Lactic acidosis -Monitor HR and BP keep MAP>65mmHg -Lactic acid 1.7 -On Lopressor 50mg BID -Echo 04/28: EF 60-65%, PASP 36mmHg GI: - IV famotidine -On tube feeds Jevity 1.5 will goal rate 75ml/hr Docusate serum/senna 1 tablet twice daily for bowel regimen. Lactulose 30 cc twice daily and MiraLAX 17 g twice daily. free water 250ml Q12 Renal/FEN/: -Monitor renal function, I/O's, electrolytes replacement as needed -CT abd/pelvis: No findings to indicate a bowel obstruction are seen. No free air free fluid is identified. -On Bumex 0.5mg/hr- UOP 6L ID: MSSA/group A beta strep pneumonia Abx per ID- On Unasyn, Azithromycin, Vanco and monitor for signs of infections ( Fever, WBC) Panculture today ( Blood, sputum, UA) 05/07 04/27 Sputum: Staph aureus/MSSA and beta strep not group A. 05/03 BC: GPC : Coag neg staph 05/02 bronch cx: Staph Aureus ID is following HEME: Normocytic anemia Leukocytosis -Monitor CBC, coags ENDO/FEN: Hyperglycemia Hypernatremia -Electrolyte replacement per protocol -Sliding scale insulin PROPH: -Bilateral lower extremity SCDs. Subcu heparin/famotidine LINES: -Utilize peripheral IVs, [facility] central line placed in ED 04/27 Patient is high risk for a routine line change giving his severe ARDS and is on Rotoprone bed with high PEEP:10 and FIO2:60%. Patient has no fever and is WBC is trending down thus suspicious for line infection is low at this time. He is at high risk for complications. PICC line was cleared by ID. Discussed with Dr. Wiley. Discussed with patient's father and updated him on his condition CC time 35 min
[2018-05-08] MEDS: Bumetanide Inj 25 MG/100 ML BAG IV.CONT SCH (11:05)
[2018-05-08] MEDS: EPOPROSTENOL NEB SCH ×4 (11:06→22:27)
[2018-05-08] MEDS: SODIUM CHLOR NEB SCH ×4 (11:06→22:27)
--- NOTE | 2018-05-08 18:24 | P.PNID ---
Subjective Remarks: not doing as well as uyday from resp [place] Up on 60% FiO2, PPE 10% tolerates supinem, but in prone position most of the time no fever WBC 14 K Coag neg staph in 1/ clx Growing a GNB in sputum Antibiotics: unasyn azithro Allergies/Adverse Reactions: Allergies shellfish derived Allergy (Verified 04/29/18 13:12) Anaphylaxis No Known Allergies Allergy (Uncoded 04/29/18 13:12) Objective Vital Signs 05/07/18 20:00 05/07/18 20:13 05/08/18 00:00 Temperature 97.2 F L 98.8 F Pulse Rate 103 H 95 H Respiratory Rate 14 14 14 Pulse Oximetry 93 L 93 L 93 L 05/08/18 00:10 05/08/18 04:00 05/08/18 04:49 Temperature 98.4 F Pulse Rate 92 H Respiratory Rate 14 14 14 Pulse Oximetry 93 L 91 L 94 L 05/08/18 07:38 05/08/18 08:00 05/08/18 12:00 Temperature 98.6 F 98.9 F Pulse Rate 105 H 100 H 117 H Respiratory Rate 14 14 14 Pulse Oximetry 92 L 92 L 96 05/08/18 12:13 05/08/18 16:00 05/08/18 16:52 Temperature 100.2 F H Pulse Rate 106 H 129 H Respiratory Rate 14 14 14 Pulse Oximetry 95 93 L 93 L Intake & Output 05/07/18 05/08/18 05/08/18 18:59 06:59 18:59 Intake Total 4089.5 / 4089.5 5486.0 / 5486.0 4094.5 / 4094.5 Output Total 5000 / 5000 4550 / 4550 Balance -910.5 / -910.5 936.0 / 936.0 4094.5 / 4094.5 Weight 170 kg Intake: IV 3172.5 / 3172.5 4795.0 / 4795.0 4094.5 / 4094.5 Bumex Inj 25 mg In 100 ml @ 0.5 22 / 22 MG/HR 2 mls/hr IV.CONT .Q24H [facility] Rx#:[id number] Nimbex Inj 200 MG In NS Inj 480 1500 / 1500 2000 / 1999 2500 / 2500 ML @ 1 MCG/KG/MIN 27.6 mls/hr IV.CONT TITRATE PRN Rx#: [id number] Versed Inj 50 mg In 50 ml @ 2 100 / 100 100 / 100 100 / 100 MG/HR 2 mls/hr IV.CONT TITRATE PRN Rx#:[id number] Diprivan 1000 mg/100 ml Inj 1, 500 / 500 600 / 600 400 / 400 000 mg In 100 ml @ 5 MCG/KG/MIN 4.77 mls/hr IV.CONT TITRATE PRN Rx#:[id number] Unasyn Inj 3 GM In NS Inj 100 200 / 200 200 / 200 200 / 200 ML @ 200 mls/hr IV.SIG Q6H [facility] Rx#:[id number] Azithromycin Inj 500 MG In NS 250 / 250 Inj 250 ML @ 250 mls/hr IV.SIG Q24H [facility] Rx#:[id number] Vancomycin Inj 2,250 MG In NS 522.5 / 522.5 1045.0 / 1045.0 522.5 / 522.5 Inj 500 ML @ 250 mls/hr IV.SIG Q8H [facility] Rx#:[id number] fentaNYL 10 mcg/mL Premix Drip 250 / 250 500 / 500 250 / 250 2,500 mcg In 250 ml @ 50 MCG/HR 5 mls/hr IV.SIG TITRATE PRN Rx #:[id number] Flolan (30,000 ng/mL) Neb 90 ML 100 / 100 100 / 100 100 / 100 In NS Inj 10 ML @ 5 mls/hr NEB Q8H [facility] Rx#:[id number] Tube Feeding 517 / 517 381 / 381 Water Bolus Amount 400 / 400 310 / 310 Output: Urine 4500 / 4500 Stool 500 / 500 200 / 200 Urine Amount (Catheter) 4350 / 4350 Indwelling Urethral Catheter 4350 / 4350 Other: Date of Last Bowel Movement 05/07/18 05/08/18 05/08/18 05/03/18 10:10 Blood - Peripheral Aerobic Blood Culture - Final Staphylococcus epidermidis 05/03/18 10:10 Blood - Peripheral Anaerobic Blood Culture - Final No growth in 5 days 05/07/18 10:00 Sputum - Endotracheal Gram Stain - Final 05/07/18 10:00 Sputum - Endotracheal Sputum Culture - Preliminary gram negative rods 05/07/18 11:35 Blood - Peripheral Aerobic Blood Culture - Preliminary No growth in 1 day 05/07/18 11:35 Blood - Peripheral Anaerobic Blood Culture - Preliminary No growth in 1 day 05/07/18 10:00 Blood - Peripheral Aerobic Blood Culture - Preliminary No growth in 1 day 05/07/18 10:00 Blood - Peripheral Anaerobic Blood Culture - Preliminary No growth in 1 day 05/03/18 11:20 Blood - Peripheral Aerobic Blood Culture - Final No growth in 5 days 05/03/18 11:20 Blood - Peripheral Anaerobic Blood Culture - Final No growth in 5 days 05/01/18 14:27 Blood - Peripheral Aerobic Blood Culture - Final No growth in 5 days 05/01/18 14:27 Blood - Peripheral Anaerobic Blood Culture - Final No growth in 5 days 05/01/18 14:20 Blood - Peripheral Aerobic Blood Culture - Final No growth in 5 days 05/01/18 14:20 Blood - Peripheral Anaerobic Blood Culture - Final No growth in 5 days Lab - Hematology Results 05/07/18 05/08/18 04:10 03:55 WBC 15.6 H 14.6 H RBC 3.98 L 3.83 L Hgb 11.8 L 11.4 L Hct 35.6 L 33.9 L MCV 89.4 88.5 MCH 29.6 29.8 MCHC 33.1 33.7 RDW 15.1 15.1 Plt Count 448 436 MPV 7.9 7.7 Prelim Diff (Auto) Slide review pending Slide review pending Neut % (Auto) 76.0 H 73.0 H Lymph % (Auto) 14.4 16.8 [place] % (Auto) 8.7 H 8.3 H Eos % (Auto) 0.5 1.5 Baso % (Auto) 0.4 0.4 Neut # (Auto) 11.9 H 10.6 H Lymph # (Auto) 2.3 2.4 [place] # (Auto) 1.4 H 1.2 H Eos # (Auto) 0.1 0.2 Baso # (Auto) 0.1 0.1 WBC Differential Manual diff final Manual diff final Seg Neuts % (Manual) 66 73 H Band Neuts % (Manual) 8 H 6 Lymphocytes % (Manual) 17 13 Monocytes % (Manual) 7 7 Metamyelocytes % (Man) 2 H Myelocytes % (Man) 1 H Abs Neuts (Manual) 11.9 H 11.7 H Differential Comment . . Toxic Granulation 1+ H Platelet Estimate Normal High H Platelet Morphology Normal Normal RBC Morphology Normal Lab - Chemistry Results 05/07/18 05/07/18 05/07/18 00:21 04:15 06:06 Sodium 139 Potassium 3.7 Chloride 100 Carbon Dioxide 30.8 Anion Gap 8 BUN 22 H Creatinine 0.70 Estimated GFR Greater than 89 POC Glucose 157 H 138 H Random Glucose 131 H Calcium 8.3 L Phosphorus 4.2 Magnesium 2.6 H Total Bilirubin 0.4 AST 17 ALT 73 H Alkaline Phosphatase 76 Total Protein 6.9 Albumin 2.5 L 05/07/18 05/07/18 05/08/18 11:38 17:12 00:19 Sodium Potassium Chloride Carbon Dioxide Anion Gap BUN Creatinine Estimated GFR POC Glucose 173 H 130 H 118 H Random Glucose Calcium Phosphorus Magnesium Total Bilirubin AST ALT Alkaline Phosphatase Total Protein Albumin 05/08/18 05/08/18 05/08/18 03:55 13:06 17:27 Sodium 138 Potassium 3.7 Chloride 99 Carbon Dioxide 32.0 Anion Gap 7 BUN 21 H Creatinine 0.73 Estimated GFR Greater than 89 POC Glucose 146 H 152 H Random Glucose 131 H Calcium 8.2 L Phosphorus 3.3 Magnesium 2.4 Total Bilirubin 0.5 AST 11 L ALT 69 H Alkaline Phosphatase 74 Total Protein 6.5 Albumin 2.5 L Imaging: ITS Impressions Head CT 04/27/18 11:31 CONCLUSION: 1. Negative CT Head non contrast. . Abdomen/Pelvis CT 04/27/18 11:35 CONCLUSION: 1. Extensive atelectasis in both lower lobes. 2. The Stone catheter needs to be deflated and advanced into the bladder. The catheter is at the level of the prosthetic urethra. 3. No findings to indicate a bowel obstruction are seen. No free air free fluid is identified. Chest CT 04/27/18 11:35 CONCLUSION: 1. Consolidation both posterior lungs with air bronchograms. This could represent bilateral pneumonia or aspiration. Cervical Spine CT 04/27/18 11:36 CONCLUSION: 1. Negative trauma study. Lumbar Spine CT 04/27/18 11:59 CONCLUSION: 1. Negative for acute process 2. There is no evidence for vertebral compression. Head MRI 04/29/18 07:05 CONCLUSION: 1. Negative MRI of the brain. 2. Inflammatory process cannot be entirely excluded. 3. There are no infarcts identified. Chest X-Ray 05/07/18 00:00 CONCLUSION: Right lower lobe medial consolidation not present previously, right upper lobe infiltrate has resolved since the prior exam. Physical Exam: examined in supine GENERAL: NAD sedated and paralyzed int'd and on vent SKIN: Warm and dry. no rash HEAD: Atraumatic. Normocephalic. EYES: Face mildly edematous ENT: orally intubated NECK: Trachea midline. No JVD. CARDIOVASCULAR: Regular rate and rhythm on monitor well perfused perifery RESPIRATORY: clear GASTROINTESTINAL: soft abdomen MUSCULOSKELETAL: Extremities without clubbing, cyanosis, + 2 edema. NEUROLOGICAL: sedated and paralyzed PSYCHIATRIC: unable to assess Assessment and Plan - Plan PNA, probably aspiration Acute VDRF worsening today Growing MSSA, beta strep from the sputum Morbid obesity with likley obesity- hypoventilation sd Coag neg staph bactermeia, low grade doubt clin significance Pt with new PNA, growing GNB dc Unasyn start Meropenem, tobramycin dc azithromycin start cefazoline sanket RN @ b/s sanket father @ b/s
[2018-05-08] MEDS ORDERED: Tobramycin Consult Pharmacy OTHER PRN (18:25)
[2018-05-08] MEDS: ceFAZolin 2 GM Premix Inj 2 GM/50 ML PIGGYBACK IV.SIG SCH (20:48)
[2018-05-08] MEDS: SODIUM CHLOR 0.9% IV.SIG SCH (20:49)
[2018-05-08] MEDS: TOBRAMYCIN IV.SIG SCH (20:49)
[2018-05-09] MEDS: Insulin NovoLOG Aspart Correctional Sugar Inj SQ SCH ×4 (00:02→18:24)
[2018-05-09] MEDS: Propofol 1000 mg/100 ml Inj 1,000 MG/100 ML BOTTLE IV.CONT PRN ×13 (00:21→23:11)
[2018-05-09] MEDS: SODIUM CHLOR 0.9% IV.CONT PRN ×10 (00:25→22:02)
[2018-05-09] MEDS: CISATRACURIUM IV.CONT PRN ×10 (00:25→22:02)
[2018-05-09] MEDS: fentaNYL 10 mcg/mL Premix Drip 2,500 MCG/250 ML BAG IV.SIG PRN ×3 (00:59→21:04)
[2018-05-09] MEDS: Bumetanide Inj 25 MG/100 ML BAG IV.CONT SCH ×3 (01:02→08:03)
[2018-05-09] MEDS: Midazolam 50 MG/50 ML Inj 50 MG/50 ML BAG IV.CONT PRN ×5 (01:39→23:47)
[2018-05-09 02:35] LABS: ABG Base Excess 2.4 mmol/L (-2-2); ABG PCO2 36 mmHg (38-42); ABG PO2 89 mmHG (61-120)
[2018-05-09] MEDS: ceFAZolin 2 GM Premix Inj 2 GM/50 ML PIGGYBACK IV.SIG SCH ×3 (03:51→20:16)
--- NOTE | 2018-05-09 05:18 | XR ---
EXAM DATE: 05/09/2018 4:41 AM EST AGE/SEX: 22 years / Male INDICATIONS: PICC line placement from previous day. CLINICAL DATA: This is the patient's subsequent encounter. Patient reports that signs and symptoms h ave been present for 2 weeks and indicates a pain score of Nonresponsive. MEDICAL/SURGICAL HISTORY: None. Tonsillectomy. [place] [facility] [place]. . FINDINGS: A single AP view of the chest demonstrates resolution of the previously seen right lower lobe consoli dation. A new consolidation now seen within the right upper lobe. Left lung clear. No effusions. Low lung volumes. Endotracheal tube tip 4 cm from the roque. Nasogastric tube. CONCLUSION: Low lung volumes. New consolidation right upper lobe. Electronically signed by: Uziel Freitas MD 05/09/2018 5:16 AM EST
[2018-05-09] MEDS: Heparin - SQ 10,000 UNITS/ML Vial SQ SCH ×2 (05:28→17:25)
[2018-05-09] MEDS: MethylPREDNISolone Sod Succinate Inj 40 MG/ML Vial IV.PUSH SCH ×3 (05:29→22:38)
[2018-05-09 05:51] LABS: Baso # (Auto) 0.1 th/mm3 (0.0-0.2); Baso % (Auto) 0.5 % (0.0-2.0); Eos # (Auto) 0.1 th/mm3 (0.0-0.4); Hematocrit 34.1 % (39.0-51.0); Hemoglobin 11.8 gm/dL (13.0-17.0); Lymph # (Auto) 1.7 th/mm3 (1.0-4.8); Mean Corpuscular HGB Conc 34.6 % (32.0-36.0); Mean Corpuscular Hemoglobin 29.9 pg (27.0-34.0); Mean Corpuscular Volume 86.5 fL (80.0-100.0); Mean Platelet Volume 7.5 fL (7.0-11.0); Mono # (Auto) 1.1 th/mm3 (0.0-0.9); Mono % (Auto) 7.5 % (0.0-8.0); Neut # (Auto) 12.1 th/mm3 (1.8-7.7); Platelet Count 420 th/mm3 (150-450); Red Blood Count 3.95 mil/mm3 (4.50-5.90); Red Cell Distribution Width 15.1 % (11.6-17.2); White Blood Count 15.2 th/mm3 (4.0-11.0)
[2018-05-09 06:11] LABS: Albumin 2.5 g/dL (3.4-5.0); Anion Gap 9 meq/L (5-15); Aspartate Aminotransferase 14 U/L (15-39); Blood Urea Nitrogen 21 mg/dL (7-18); Calcium 8.1 mg/dL (8.5-10.1); Carbon Dioxide 29.6 meq/L (21.0-32.0); Chloride 98 meq/L (98-107); Glomerular Filtration Rate Greater Than 89 mL/min (>89); Glucose,Random 122 mg/dL (74-106); Magnesium 2.2 mg/dL (1.5-2.5); Potassium 3.5 meq/L (3.5-5.1); Sodium 137 meq/L (136-145)
[2018-05-09 06:12] LABS: Alanine Aminotransferase 58 U/L (9-52)
[2018-05-09 06:14] LABS: Alkaline Phosphatase 72 U/L (45-117); Total Protein 6.5 g/dL (6.4-8.2)
[2018-05-09] MEDS: SODIUM CHLOR NEB SCH ×3 (06:36→20:16)
[2018-05-09] MEDS: EPOPROSTENOL NEB SCH ×3 (06:36→20:16)
--- NOTE | 2018-05-09 07:30 | P.PNCC ---
Subjective Subjective Remarks/Hospital Course: Patient is approximately 22 years old male obese, was found on the floor by a family member, downtime is unknown. EMS was called, patient was given Narcan with no response, he was intubated on the scene, apparently GCS 3. Found bag of PCP next to the patient. Patient has history of psychiatric disorder ? bipolar disorder and I am told he has attempted suicide in the past. There is also mention about suspicion of ethylene glycol ingestion, but his serum osmolality is 307 his osmolar gap is only 13. Bicarb is 26, ethylene glycol seems unlikely. Ethanol was negative urine drug screen only positive for benzo. I evaluated the patient in the [facility]. Patient had a CT of the head which was negative. Rest of the workup unremarkable except for bibasilar atelectasis/aspiration pneumonia. Patient's white count is elevated at 17.1, glucose is 232 lactic acid was 2.8. He received multiple fluid boluses. At this time he is not on any sedation but remains unresponsive no response to deep pain 04/28 Patient remains intubated off sedation unresponsive. Afebrile. 04/29: MRI of the brain revealed no acute intracranial findings. EEG to be performed tomorrow. More arousable and moves all 4 extremities but not following commands. Placed on dexamethasone E drip. 2 feeds will be restarted SUBJECTIVE: 04/30: T-max 101.4. Currently afebrile. No bowel movement since admission. Arousable and follows simple commands late last night but currently on sedation for agitation. Increased FiO2 noted. Will attempt to gently diurese and continue antibiotics for pansensitive staph aureus/group a beta strep sputum 05/01 Patient is sedated with Fentanyl, Diprivan and intubated. T:101.1 at 5am. Placed on APRV overnight. 05/02 Patient is sedated with Diprivan and Fentanyl drips. Tmax 101.3, on PC/AC with PEEP:12, FIO2 80%, IP:30 05/03 Patient is heavily sedated with Diprivan, Fentanyl and Versed . On PC/AC with PEEP: 14 and FIO2 100$ sats 92%, CXR yesterday showed diffuse b/l pulm infiltrates, started on Flolan nebs. Had Tmax 102.6 last night. 05/04 Patient was placed on rotoprone bed yesterday sedated with Diprivan, Versed and Fentanyl infusion and on neuromuscular blockade( Nimbex) On PC/AC His FIO2 requirements is better now on FIO2:50% from 100% with PEEP:14. T:102.6 05/05 Patient remains intubated and sedated on Bumex drio0.5mg/hr, T:99.7 at 3am. On PC/AC with PEEP:1 and FIO2 60%- sats 95%. 05/06 Patient remains sedated and intubated on rotoprone bed with improvements in his oxygenation. Now on PC/AC with PEEP:10, FIO2 40%. Afebrile. On Bumex drip 0.5mg/hr. 05/07 Patient remains on rotoprone bed sedated and on Nimbex drip. He is also on Bumex drip 0.5mg/hr with good urine output . 05/08 Patient remains sedated and intubated. On Flolan, and Bumex drip. Afebrile. 05/09 Patient desat overnight now on PC/AC with PEEP:10 and FIO2 100% sats 96%. Had T: 100.4 at midnight. Sputum cx 05/07 GNR. Remains sedated on Flolan and Bumex drip. Objective Vital Signs / I&O: Vital Signs 05/08/18 07:38 05/08/18 08:00 05/08/18 12:00 Temperature 98.6 F 98.9 F Pulse Rate 105 H 100 H 117 H Respiratory Rate 14 14 14 Pulse Oximetry 92 L 92 L 96 05/08/18 12:13 05/08/18 16:00 05/08/18 16:52 Temperature 100.2 F H Pulse Rate 106 H 129 H Respiratory Rate 14 14 14 Pulse Oximetry 95 93 L 93 L 05/08/18 19:55 05/08/18 20:00 05/08/18 22:20 Temperature 99.5 F Pulse Rate 105 H Respiratory Rate 14 14 Pulse Oximetry 95 97 92 L 05/09/18 00:00 05/09/18 00:23 05/09/18 03:59 Temperature 100.9 F H Pulse Rate 135 H Respiratory Rate 14 16 14 Pulse Oximetry 92 L 92 L 95 05/09/18 04:00 05/09/18 06:00 Temperature 99.5 F Pulse Rate 97 H Respiratory Rate 14 Pulse Oximetry 95 95 Intake & Output 05/08/18 05/09/18 05/09/18 18:59 06:59 18:59 Intake Total 5105.5 / 5105.5 5364.5 / 5364.5 Output Total 6000 / 6000 7200 / 7200 Balance -894.5 / -894.5 -1835.5 / -1835.5 Weight 165.5 kg Intake: IV 4294.5 / 4294.5 4522.5 / 4522.5 Bumex Inj 25 mg In 100 ml @ 0.5 122 / 122 MG/HR 2 mls/hr IV.CONT .Q24H [facility] Rx#:[id number] Nimbex Inj 200 MG In NS Inj 480 2500 / 2500 2500 / 2500 ML @ 1 MCG/KG/MIN 27.6 mls/hr IV.CONT TITRATE PRN Rx#: [id number] Versed Inj 50 mg In 50 ml @ 2 100 / 100 150 / 150 MG/HR 2 mls/hr IV.CONT TITRATE PRN Rx#:[id number] Diprivan 1000 mg/100 ml Inj 1, 400 / 400 600 / 600 000 mg In 100 ml @ 5 MCG/KG/MIN 4.77 mls/hr IV.CONT TITRATE PRN Rx#:[id number] Unasyn Inj 3 GM In NS Inj 100 200 / 200 ML @ 200 mls/hr IV.SIG Q6H [facility] Rx#:[id number] Merrem Inj 1,000 MG In NS Inj 200 / 200 100 ML @ 200 mls/hr IV.SIG Q8H [facility] Rx#:[id number] Nebcin Inj 840 MG In NS Inj 100 100 / 100 ML @ 100 mls/hr IV.SIG Q24H [facility] Rx#:[id number] Vancomycin Inj 2,250 MG In NS 522.5 / 522.5 522.5 / 522.5 Inj 500 ML @ 250 mls/hr IV.SIG Q8H [facility] Rx#:[id number] Ancef 2 GM Premix Inj 2 gm In 100 / 100 50 ml @ 200 mls/hr IV.SIG Q8H [facility] Rx#:[id number] fentaNYL 10 mcg/mL Premix Drip 250 / 250 250 / 250 2,500 mcg In 250 ml @ 50 MCG/HR 5 mls/hr IV.SIG TITRATE PRN Rx #:[id number] Flolan (30,000 ng/mL) Neb 90 ML 200 / 200 100 / 100 In NS Inj 10 ML @ 5 mls/hr NEB Q8H [facility] Rx#:[id number] Tube Feeding 561 / 561 542 / 542 Water Bolus Amount 250 / 250 300 / 300 Output: Stool 1000 / 1000 500 / 500 Urine Amount (Catheter) 5000 / 5000 6700 / 6700 Indwelling Urethral Catheter 5000 / 5000 6700 / 6700 Other: Date of Last Bowel Movement 05/08/18 05/09/18 Result Diagrams: 05/09/18 05:20 05/09/18 05:20 Other Results: Laboratory Results - last 12 hr 05/08/18 05/09/18 05/09/18 23:58 02:24 05:20 WBC 15.2 H RBC 3.95 L Hgb 11.8 L Hct 34.1 L MCV 86.5 MCH 29.9 MCHC 34.6 RDW 15.1 Plt Count 420 MPV 7.5 Neut % (Auto) 80.0 H Lymph % (Auto) 11.0 [place] % (Auto) 7.5 Eos % (Auto) 1.0 Baso % (Auto) 0.5 Neut # (Auto) 12.1 H Lymph # (Auto) 1.7 [place] # (Auto) 1.1 H Eos # (Auto) 0.1 Baso # (Auto) 0.1 WBC Differential . Differential Comment Auto diff final Puncture Site Art line Patient Temperature 98.6 O2 Saturation 94 ABG pH 7.47 H ABG pCO2 36 L ABG pO2 89 ABG HCO3 26 ABG O2 Content 16.9 ABG Base Excess 2.4 H ABG Methemoglobin 1.7 Hemoglobin 12.7 Carboxyhemoglobin 0.7 O2 Delivery Device Ventilator Vent Setting Pc/ac / Inspired O2 100 Critical Value No Sodium Potassium Chloride Carbon Dioxide Anion Gap BUN Creatinine Estimated GFR POC Glucose 166 H Random Glucose Calcium Phosphorus Magnesium Total Bilirubin AST ALT Alkaline Phosphatase Total Protein Albumin 05/09/18 05/09/18 05:20 05:20 WBC RBC Hgb Hct MCV MCH MCHC RDW Plt Count MPV Neut % (Auto) Lymph % (Auto) [place] % (Auto) Eos % (Auto) Baso % (Auto) Neut # (Auto) Lymph # (Auto) [place] # (Auto) Eos # (Auto) Baso # (Auto) WBC Differential Differential Comment Puncture Site Patient Temperature O2 Saturation ABG pH ABG pCO2 ABG pO2 ABG HCO3 ABG O2 Content ABG Base Excess ABG Methemoglobin Hemoglobin Carboxyhemoglobin O2 Delivery Device Vent Setting Inspired O2 Critical Value Sodium 137 Potassium 3.5 Chloride 98 Carbon Dioxide 29.6 Anion Gap 9 BUN 21 H Creatinine 0.75 Estimated GFR Greater than 89 POC Glucose 124 H Random Glucose 122 H Calcium 8.1 L Phosphorus 4.0 Magnesium 2.2 Total Bilirubin 0.4 AST 14 L ALT 58 H Alkaline Phosphatase 72 Total Protein 6.5 Albumin 2.5 L Imaging: Head CT 04/27/18 11:31 CONCLUSION: 1. Negative CT Head non contrast. . Abdomen/Pelvis CT 04/27/18 11:35 CONCLUSION: 1. Extensive atelectasis in both lower lobes. 2. The Stone catheter needs to be deflated and advanced into the bladder. The catheter is at the level of the prosthetic urethra. 3. No findings to indicate a bowel obstruction are seen. No free air free fluid is identified. Chest CT 04/27/18 11:35 CONCLUSION: 1. Consolidation both posterior lungs with air bronchograms. This could represent bilateral pneumonia or aspiration. Cervical Spine CT 04/27/18 11:36 CONCLUSION: 1. Negative trauma study. Lumbar Spine CT 04/27/18 11:59 CONCLUSION: 1. Negative for acute process 2. There is no evidence for vertebral compression. Head MRI 04/29/18 07:05 CONCLUSION: 1. Negative MRI of the brain. 2. Inflammatory process cannot be entirely excluded. 3. There are no infarcts identified. Chest X-Ray 05/09/18 04:00 CONCLUSION: Low lung volumes. New consolidation right upper lobe. Objective Remarks: GENERAL: Patient is 22 yo intubated . SKIN: Warm and dry. No rash HEAD: Normocephalic. EYES: No scleral icterus. No injection or drainage. NECK: Supple, trachea midline. No JVD or lymphadenopathy. CARDIOVASCULAR: Regular rate and rhythm without murmurs, gallops, or rubs. RESPIRATORY: Breath sounds equal bilaterally. No accessory muscle use. GASTROINTESTINAL: Abdomen soft, non-tender, nondistended. MUSCULOSKELETAL: No significant peripheral edema. Neuro: intubated, sedated Assessment and Plan - Assessment and Plan Plan: NEURO/PSYCH: Acute metabolic encephalopathy Suspected PCP overdose Suspected ethylene glycol overdose Suicide attempt -PCP was found near the patient ,continue supportive care -On Diprivan. Versed and Fentanyl infusion for sedation and vent synchrony -monitor neuro status. On Neuromuscular blockade( Nimbex)monitor train of 4 -Urine drug screen positive for benzos only -Psychiatric consult after neurological recovery -CT of the head negative. MRI of brain negative. Cannot rule out inflammatory process - EEG 04/30 and follow-up EEG 04/28 with no epileptic activity -Ammonia level: 21 -Neuro is following- Dr. Landon RESP: Acute respiratory failure Bibasilar aspiration pneumonitis Severe ARDS -Continue with vent support keep sats >92% -On PC/AC RR14, IP:1.28, IT:1.2, PEEP:10 and FIO2 100%. Decrease FIO2 as kit -Ventilator bundle. -Bronchodilators ( DuoNeb, Mucomyst nebs Q4), Decrease Solumederol 40mg Q8 - Continue with Flolan nebs ( 30,000 ng/ml) CXR today new consolidation RUL. s/p bronch 05/02 thick secretions suctioned to clear. No evidence of EBL or bleeding. On rotoprone bed for proning to improve ventilation/perfusion matching. CV: Hypotension Lactic acidosis -Monitor HR and BP keep MAP>65mmHg -Lactic acid 1.7 -On Lopressor 50mg BID -Echo 04/28: EF 60-65%, PASP 36mmHg GI: - IV famotidine -On tube feeds Jevity 1.5 will goal rate 75ml/hr Docusate serum/senna 1 tablet twice daily for bowel regimen. Lactulose 30 cc twice daily and MiraLAX 17 g twice daily. free water 250ml Q12 Renal/FEN/: -Monitor renal function, I/O's, electrolytes replacement as needed -CT abd/pelvis: No findings to indicate a bowel obstruction are seen. No free air free fluid is identified. -On Bumex 0.5mg/hr- good response in UOP. ID: MSSA/group A beta strep pneumonia Abx per ID- On Cefazolin, Merrem, Tobramycin- monitor for signs of infections ( Fever, WBC) Panculture today ( Blood, sputum, UA) 05/07 05/07 Sputm cx: GNR 04/27 Sputum: Staph aureus/MSSA and beta strep not group A. 05/03 BC: GPC : Coag neg staph 05/02 bronch cx: Staph Aureus ID is following HEME: Normocytic anemia Leukocytosis -Monitor CBC, coags ENDO/FEN: Hyperglycemia Hypernatremia -Electrolyte replacement per protocol -Sliding scale insulin PROPH: -Bilateral lower extremity SCDs. Subcu heparin/famotidine LINES: -Utilize peripheral IVs, [facility] central line placed in ED 04/27 Patient is high risk for a routine line change giving his severe ARDS and is on Rotoprone bed with high PEEP:10 and FIO2: now 100%. Suspicious for line infection is low at this time. He is at high risk for complications. PICC line was cleared by ID. Discussed with Dr. Wiley. PICC line inserted yesterday 05/08 readjust PICC and d/c central line afterwards. Discussed with patient's father and updated him on his condition CC time 40 min
[2018-05-09] MEDS: Senna/Docusate Sodium 8.6/50 MG Tablet PO SCH ×2 (08:02→20:32)
[2018-05-09] MEDS: Pantoprazole Inj 40 MG Vial IV.PUSH SCH (08:02)
[2018-05-09] MEDS: Metoprolol Tartrate 50 MG Tablet PO SCH ×4 (08:02→21:06)
[2018-05-09] MEDS: Polyethylene Glycol 3350 17 GM Packet PO SCH ×2 (08:02→20:31)
[2018-05-09] MEDS: Artificial Tears Opth Drops 15 ML Bottle EACH EYE SCH ×3 (08:03→23:48)
[2018-05-09] MEDS ORDERED: Metoprolol Inj 5 MG/5 ML Vial IV.PUSH ONE (08:15)
[2018-05-09] MEDS: Potassium Chlor 40 mEq Premix 40 MEQ/100 ML PIGGYBACK IV.SIG PRN (08:56)
[2018-05-09] MEDS: Heparin Central Flush 100 UNIT/ML 5 ML Vial IV.FLUSH SCH (10:05)
--- NOTE | 2018-05-09 10:30 | P.PNID ---
Subjective Remarks: ID Xcover for Chart reviewed. sanket RN is a 22 yo morbidly obese male with bipolar, major depressive disorder found down prone by his father unresponsive + some fevers, malaise few day prior but refused to go seek med attention BAL with MSSA, beta strep not group A is sputum cx CXR with Right greater than left consolidation and small effusions again noted. Patient intubated on Rotaprone bed since 05/03/2018. Overnight events reviewed Remains on Rotaprone bed. Remains intubated Stone in place Dign[place] in place to maintain liquid stool while on rotaprone bed. On stool softeners. Resp requirements increased. Low grade fevers 100.8 F Secretions plus. Sputum with GNB. Prior MSSA. Regimen changed yday for antibiotics. UO good. Not on pressors. Antibiotics: Ancef IV Meropenem IV Tobra IV Lines: Line sites ok Past Medical History: reviewed. Allergies/Adverse Reactions: Allergies shellfish derived Allergy (Verified 04/29/18 13:12) Anaphylaxis No Known Allergies Allergy (Uncoded 04/29/18 13:12) Objective Vital Signs 05/08/18 12:00 05/08/18 12:13 05/08/18 16:00 Temperature 98.9 F 100.2 F H Pulse Rate 117 H 106 H Respiratory Rate 14 14 14 Pulse Oximetry 96 95 93 L 05/08/18 16:52 05/08/18 19:55 05/08/18 20:00 Temperature 99.5 F Pulse Rate 129 H 105 H Respiratory Rate 14 14 14 Pulse Oximetry 93 L 95 97 05/08/18 22:20 05/09/18 00:00 05/09/18 00:23 Temperature 100.9 F H Pulse Rate 135 H Respiratory Rate 14 16 Pulse Oximetry 92 L 92 L 92 L 05/09/18 03:59 05/09/18 04:00 05/09/18 06:00 Temperature 99.5 F Pulse Rate 97 H Respiratory Rate 14 14 Pulse Oximetry 95 95 95 05/09/18 07:27 Temperature Pulse Rate Respiratory Rate 14 Pulse Oximetry 95 Intake & Output 05/08/18 05/09/18 05/09/18 18:59 06:59 18:59 Intake Total 5105.5 / 5105.5 5364.5 / 5364.5 1200 / 1200 Output Total 6000 / 6000 7200 / 7200 Balance -894.5 / -894.5 -1835.5 / -1835.5 1200 / 1200 Weight 165.5 kg Intake: IV 4294.5 / 4294.5 4522.5 / 4522.5 1200 / 1200 Bumex Inj 25 mg In 100 ml @ 0.5 122 / 122 MG/HR 2 mls/hr IV.CONT .Q24H [facility] Rx#:[id number] Nimbex Inj 200 MG In NS Inj 480 2500 / 2500 2500 / 2500 1000 / 1000 ML @ 1 MCG/KG/MIN 27.6 mls/hr IV.CONT TITRATE PRN Rx#: [id number] Versed Inj 50 mg In 50 ml @ 2 100 / 100 150 / 150 MG/HR 2 mls/hr IV.CONT TITRATE PRN Rx#:[id number] Diprivan 1000 mg/100 ml Inj 1, 400 / 400 600 / 600 200 / 200 000 mg In 100 ml @ 5 MCG/KG/MIN 4.77 mls/hr IV.CONT TITRATE PRN Rx#:[id number] Unasyn Inj 3 GM In NS Inj 100 200 / 200 ML @ 200 mls/hr IV.SIG Q6H [facility] Rx#:[id number] Merrem Inj 1,000 MG In NS Inj 200 / 200 100 ML @ 200 mls/hr IV.SIG Q8H [facility] Rx#:[id number] Nebcin Inj 840 MG In NS Inj 100 100 / 100 ML @ 100 mls/hr IV.SIG Q24H [facility] Rx#:[id number] Vancomycin Inj 2,250 MG In NS 522.5 / 522.5 522.5 / 522.5 Inj 500 ML @ 250 mls/hr IV.SIG Q8H [facility] Rx#:[id number] Ancef 2 GM Premix Inj 2 gm In 100 / 100 50 ml @ 200 mls/hr IV.SIG Q8H [facility] Rx#:[id number] fentaNYL 10 mcg/mL Premix Drip 250 / 250 250 / 250 2,500 mcg In 250 ml @ 50 MCG/HR 5 mls/hr IV.SIG TITRATE PRN Rx #:[id number] Flolan (30,000 ng/mL) Neb 90 ML 200 / 200 100 / 100 In NS Inj 10 ML @ 5 mls/hr NEB Q8H [facility] Rx#:[id number] Tube Feeding 561 / 561 542 / 542 Water Bolus Amount 250 / 250 300 / 300 Output: Stool 1000 / 1000 500 / 500 Urine Amount (Catheter) 5000 / 5000 6700 / 6700 Indwelling Urethral Catheter 5000 / 5000 6700 / 6700 Other: Date of Last Bowel Movement 05/08/18 05/09/18 05/09/18 05/03/18 10:10 Blood - Peripheral Aerobic Blood Culture - Final Staphylococcus epidermidis 05/03/18 10:10 Blood - Peripheral Anaerobic Blood Culture - Final No growth in 5 days 05/07/18 10:00 Sputum - Endotracheal Gram Stain - Final 05/07/18 10:00 Sputum - Endotracheal Sputum Culture - Preliminary gram negative rods 05/07/18 11:35 Blood - Peripheral Aerobic Blood Culture - Preliminary No growth in 1 day 05/07/18 11:35 Blood - Peripheral Anaerobic Blood Culture - Preliminary No growth in 1 day 05/07/18 10:00 Blood - Peripheral Aerobic Blood Culture - Preliminary No growth in 1 day 05/07/18 10:00 Blood - Peripheral Anaerobic Blood Culture - Preliminary No growth in 1 day 05/03/18 11:20 Blood - Peripheral Aerobic Blood Culture - Final No growth in 5 days 05/03/18 11:20 Blood - Peripheral Anaerobic Blood Culture - Final No growth in 5 days 05/01/18 14:27 Blood - Peripheral Aerobic Blood Culture - Final No growth in 5 days 05/01/18 14:27 Blood - Peripheral Anaerobic Blood Culture - Final No growth in 5 days 05/01/18 14:20 Blood - Peripheral Aerobic Blood Culture - Final No growth in 5 days 05/01/18 14:20 Blood - Peripheral Anaerobic Blood Culture - Final No growth in 5 days Lab - Hematology Results 05/08/18 05/09/18 03:55 05:20 WBC 14.6 H 15.2 H RBC 3.83 L 3.95 L Hgb 11.4 L 11.8 L Hct 33.9 L 34.1 L MCV 88.5 86.5 MCH 29.8 29.9 MCHC 33.7 34.6 RDW 15.1 15.1 Plt Count 436 420 MPV 7.7 7.5 Prelim Diff (Auto) Slide review pending Neut % (Auto) 73.0 H 80.0 H Lymph % (Auto) 16.8 11.0 [place] % (Auto) 8.3 H 7.5 Eos % (Auto) 1.5 1.0 Baso % (Auto) 0.4 0.5 Neut # (Auto) 10.6 H 12.1 H Lymph # (Auto) 2.4 1.7 [place] # (Auto) 1.2 H 1.1 H Eos # (Auto) 0.2 0.1 Baso # (Auto) 0.1 0.1 WBC Differential Manual diff final . Seg Neuts % (Manual) 73 H Band Neuts % (Manual) 6 Lymphocytes % (Manual) 13 Monocytes % (Manual) 7 Myelocytes % (Man) 1 H Abs Neuts (Manual) 11.7 H Differential Comment . Auto diff final Toxic Granulation 1+ H Platelet Estimate High H Platelet Morphology Normal Lab - Chemistry Results 05/07/18 05/07/18 05/08/18 11:38 17:12 00:19 Sodium Potassium Chloride Carbon Dioxide Anion Gap BUN Creatinine Estimated GFR POC Glucose 173 H 130 H 118 H Random Glucose Calcium Phosphorus Magnesium Total Bilirubin AST ALT Alkaline Phosphatase Total Protein Albumin 05/08/18 05/08/18 05/08/18 03:55 13:06 17:27 Sodium 138 Potassium 3.7 Chloride 99 Carbon Dioxide 32.0 Anion Gap 7 BUN 21 H Creatinine 0.73 Estimated GFR Greater than 89 POC Glucose 146 H 152 H Random Glucose 131 H Calcium 8.2 L Phosphorus 3.3 Magnesium 2.4 Total Bilirubin 0.5 AST 11 L ALT 69 H Alkaline Phosphatase 74 Total Protein 6.5 Albumin 2.5 L 05/08/18 05/09/18 05/09/18 23:58 05:20 05:20 Sodium 137 Potassium 3.5 Chloride 98 Carbon Dioxide 29.6 Anion Gap 9 BUN 21 H Creatinine 0.75 Estimated GFR Greater than 89 POC Glucose 166 H 124 H Random Glucose 122 H Calcium 8.1 L Phosphorus 4.0 Magnesium 2.2 Total Bilirubin 0.4 AST 14 L ALT 58 H Alkaline Phosphatase 72 Total Protein 6.5 Albumin 2.5 L Imaging: ITS Impressions Head CT 04/27/18 11:31 CONCLUSION: 1. Negative CT Head non contrast. . Abdomen/Pelvis CT 04/27/18 11:35 CONCLUSION: 1. Extensive atelectasis in both lower lobes. 2. The Stone catheter needs to be deflated and advanced into the bladder. The catheter is at the level of the prosthetic urethra. 3. No findings to indicate a bowel obstruction are seen. No free air free fluid is identified. Chest CT 04/27/18 11:35 CONCLUSION: 1. Consolidation both posterior lungs with air bronchograms. This could represent bilateral pneumonia or aspiration. Cervical Spine CT 04/27/18 11:36 CONCLUSION: 1. Negative trauma study. Lumbar Spine CT 04/27/18 11:59 CONCLUSION: 1. Negative for acute process 2. There is no evidence for vertebral compression. Head MRI 04/29/18 07:05 CONCLUSION: 1. Negative MRI of the brain. 2. Inflammatory process cannot be entirely excluded. 3. There are no infarcts identified. Chest X-Ray 05/09/18 04:00 CONCLUSION: Low lung volumes. New consolidation right upper lobe. Physical Exam: examined in supine on rotaprone bed. GENERAL: NAD sedated and paralyzed int'd and on vent SKIN: Warm and dry. no rash HEAD: Atraumatic. Normocephalic. EYES: Face mildly edematous ENT: orally intubated NECK: Trachea midline. No JVD. CARDIOVASCULAR: Regular rate and rhythm on monitor well perfused periphery RESPIRATORY: clear GASTROINTESTINAL: soft abdomen MUSCULOSKELETAL: Extremities without clubbing, cyanosis, + 2 edema. NEUROLOGICAL: sedated and paralyzed PSYCHIATRIC: unable to assess Assessment and Plan - Plan Sepsis ongoing possible new. PNA, probably aspiration Acute VDRF on rotaprone bed. MSSA pneumonia. GNR pneumonia. Morbid obesity with likely obesity- hypoventilation sd Coag neg staph bacteremia, low grade doubt clin significance Recs: Continue Meropenem, tobramycin Monitor urine output and Cr while on Tobramycin. Continue cefazolin Follow cultures Follow clinical course. sanket RN @ b/s sanket [facility] Critical ill patient. Time > 40 mins, chart reviewed, MAR reviewed, critical thinking and decision making. to resume care on Friday05/11/2018. If any changes in the interim please call sooner.
[2018-05-09] MEDS: SODIUM CHLOR 0.9% IV.SIG SCH (21:06)
[2018-05-09] MEDS: TOBRAMYCIN IV.SIG SCH (21:06)
[2018-05-10] MEDS: Insulin NovoLOG Aspart Correctional Sugar Inj SQ SCH ×4 (00:08→18:29)
[2018-05-10] MEDS: CISATRACURIUM IV.CONT PRN ×11 (00:31→22:58)
[2018-05-10] MEDS: SODIUM CHLOR 0.9% IV.CONT PRN ×11 (00:31→22:58)
[2018-05-10] MEDS: Propofol 1000 mg/100 ml Inj 1,000 MG/100 ML BOTTLE IV.CONT PRN ×12 (02:06→22:29)
[2018-05-10] MEDS: ceFAZolin 2 GM Premix Inj 2 GM/50 ML PIGGYBACK IV.SIG SCH ×3 (03:02→20:43)
[2018-05-10] MEDS ORDERED: Labetalol HCl Inj 100 MG/20 ML Vial IV.PUSH PRN ×2 (04:13→11:53)
--- NOTE | 2018-05-10 04:35 | XR ---
EXAM DATE: 05/10/2018 4:15 AM EST AGE/SEX: 22 years / Male INDICATIONS: Shortness of breath, possible pulmonary disease. CLINICAL DATA: This is the patient's subsequent encounter. Patient reports that signs and symptoms h ave been present for 2 weeks and indicates a pain score of Nonresponsive. MEDICAL/SURGICAL HISTORY: None. Tonsillectomy. COMPARISON: [facility] [place], CHEST 1V SINGLE AP, 05/09/2018. . FINDINGS: A single AP view of the chest demonstrates bilateral pulmonary consolidations. These are more pronoun janina from the prior exam. No effusions. Heart is at the upper limits of normal in terms of size. Endot kateryna tube tip 4 cm from the roque. Tip of nasogastric tube in the region of the body of the stoma ch. Right-sided PICC line observed. The tip of the PICC line not well seen due to the penetration of the film and overlapping the spine. CONCLUSION: Worsening bilateral pulmonary infiltrates. Electronically signed by: Uziel Freitas MD 05/10/2018 4:33 AM EST
[2018-05-10] MEDS: MethylPREDNISolone Sod Succinate Inj 40 MG/ML Vial IV.PUSH SCH ×3 (05:23→23:00)
[2018-05-10] MEDS: Heparin - SQ 10,000 UNITS/ML Vial SQ SCH ×3 (05:23→20:19)
[2018-05-10] MEDS: Midazolam 50 MG/50 ML Inj 50 MG/50 ML BAG IV.CONT PRN ×5 (05:24→20:34)
[2018-05-10 05:34] LABS: Baso % (Auto) 0.3 % (0.0-2.0); Eos % (Auto) 0.3 % (0.0-4.0); Hematocrit 37.5 % (39.0-51.0); Hemoglobin 12.6 gm/dL (13.0-17.0); Lymph # (Auto) 1.5 th/mm3 (1.0-4.8); Lymph % (Auto) 11.5 % (9.0-44.0); Mean Corpuscular HGB Conc 33.7 % (32.0-36.0); Mean Corpuscular Hemoglobin 29.7 pg (27.0-34.0); Mean Corpuscular Volume 88.1 fL (80.0-100.0); Mean Platelet Volume 7.8 fL (7.0-11.0); Mono # (Auto) 1.3 th/mm3 (0.0-0.9); Mono % (Auto) 9.9 % (0.0-8.0); Neut # (Auto) 10.3 th/mm3 (1.8-7.7); Platelet Count 411 th/mm3 (150-450); Red Blood Count 4.25 mil/mm3 (4.50-5.90); Red Cell Distribution Width 15.5 % (11.6-17.2); White Blood Count 13.2 th/mm3 (4.0-11.0)
[2018-05-10 05:50] LABS: Alanine Aminotransferase 60 U/L (9-52); Albumin 2.6 g/dL (3.4-5.0); Anion Gap 10 meq/L (5-15); Aspartate Aminotransferase 21 U/L (15-39); Blood Urea Nitrogen 21 mg/dL (7-18); Carbon Dioxide 30.5 meq/L (21.0-32.0); Chloride 97 meq/L (98-107); Glomerular Filtration Rate Greater Than 89 mL/min (>89); Glucose,Random 152 mg/dL (74-106); Magnesium 2.2 mg/dL (1.5-2.5); Phosphorus 4.5 mg/dL (2.5-4.9); Potassium 3.7 meq/L (3.5-5.1); Sodium 137 meq/L (136-145)
[2018-05-10 05:52] LABS: Alkaline Phosphatase 77 U/L (45-117)
[2018-05-10] MEDS: Bumetanide Inj 25 MG/100 ML BAG IV.CONT SCH (06:05)
[2018-05-10] MEDS: fentaNYL 10 mcg/mL Premix Drip 2,500 MCG/250 ML BAG IV.SIG PRN ×3 (06:43→22:30)
[2018-05-10 07:18] LABS: Lymphocytes 12 % (9-44); Monocytes 10 % (0-8); Myelocytes 1 % (0-0); Platelet Estimate Normal (Normal); Platelet Morphology Normal (Normal)
[2018-05-10 07:19] LABS: RBC Morphology Normal (Normal)
[2018-05-10] MEDS: Artificial Tears Opth Drops 15 ML Bottle EACH EYE SCH ×2 (07:42→15:14)
[2018-05-10] MEDS: Senna/Docusate Sodium 8.6/50 MG Tablet PO SCH ×2 (08:08→20:22)
[2018-05-10] MEDS: Pantoprazole Inj 40 MG Vial IV.PUSH SCH (08:08)
[2018-05-10] MEDS: Metoprolol Tartrate 50 MG Tablet PO SCH ×3 (08:08→18:29)
[2018-05-10] MEDS: Polyethylene Glycol 3350 17 GM Packet PO SCH ×2 (08:08→20:22)
[2018-05-10] MEDS: Heparin Central Flush 100 UNIT/ML 5 ML Vial IV.FLUSH SCH (08:09)
[2018-05-10] MEDS: EPOPROSTENOL NEB SCH ×3 (09:47→17:32)
[2018-05-10] MEDS: SODIUM CHLOR NEB SCH ×3 (09:47→17:32)
--- NOTE | 2018-05-10 10:36 | P.PNID ---
Subjective Remarks: ID Xcover for Chart reviewed. sanket RN is a 22 yo morbidly obese male with bipolar, major depressive disorder found down prone by his father unresponsive + some fevers, malaise few day prior but refused to go seek med attention BAL with MSSA, beta strep not group A is sputum cx CXR with Right greater than left consolidation and small effusions again noted. Patient intubated on Rotaprone bed since 05/03/2018. Overnight events reviewed Remains on Rotaprone bed. Remains intubated Stone in place D[place] in place to maintain liquid stool while on rotaprone bed. On stool softeners. Resp requirements FiO2 80%, PEEP 10 while on Rotaprone bed. No fever WBC trended downwards. Secretions plus white thin moderate to small. Sputum with GNB ID pending. Prior MSSA. UO good. Not on pressors. Antibiotics: Ancef IV Meropenem IV Tobra IV Lines: Line sites ok Past Medical History: reviewed. Allergies/Adverse Reactions: Allergies shellfish derived Allergy (Verified 04/29/18 13:12) Anaphylaxis No Known Allergies Allergy (Uncoded 04/29/18 13:12) Objective Vital Signs 05/09/18 12:00 05/09/18 15:25 05/09/18 16:00 Temperature 100.7 F H 99.1 F Pulse Rate 122 H 94 H Respiratory Rate 14 14 14 Pulse Oximetry 89 L 93 L 93 L 05/09/18 19:00 05/09/18 20:00 05/09/18 20:02 Temperature 99.9 F H 99.9 F H Pulse Rate 107 H 107 H Respiratory Rate 14 14 15 Pulse Oximetry 85 L 92 L 92 L 05/09/18 20:11 05/09/18 21:00 05/09/18 22:00 Temperature 99.7 F H 99.5 F Pulse Rate 100 H 104 H 96 H Respiratory Rate 14 14 14 Pulse Oximetry 92 L 87 L 05/09/18 23:00 05/09/18 23:20 05/09/18 23:50 Temperature 99.5 F Pulse Rate 92 H 91 H Respiratory Rate 14 15 14 Pulse Oximetry 95 94 L 05/10/18 00:00 05/10/18 01:00 05/10/18 02:00 Temperature 99.5 F 99.3 F 99.5 F Pulse Rate 91 H 92 H 91 H Respiratory Rate 14 4 L Pulse Oximetry 94 L 95 95 05/10/18 03:00 05/10/18 04:00 05/10/18 05:00 Temperature 99.3 F 98.2 F 98.8 F Pulse Rate 91 H 121 H 122 H Respiratory Rate 14 14 14 Pulse Oximetry 92 L 98 95 05/10/18 05:08 05/10/18 05:09 05/10/18 06:00 Temperature 98.6 F Pulse Rate 122 H 104 H Respiratory Rate 14 14 Pulse Oximetry 94 L 98 05/10/18 07:00 05/10/18 07:19 05/10/18 08:00 Temperature 98.2 F 98.6 F Pulse Rate 101 H 106 H Respiratory Rate 14 Pulse Oximetry 91 L 95 97 Intake & Output 05/09/18 05/10/18 05/10/18 18:59 06:59 18:59 Intake Total 4502 / 4502 5111 / 5111 800 / 800 Output Total 6625 / 6625 3900 / 3900 1375 / 1375 Balance -2123 / -2123 1211 / 1211 -575 / -575 Weight 162.6 kg Intake: IV 3800 / 3800 4278 / 4278 800 / 800 Bumex Inj 25 mg In 100 ml @ 0.5 78 / 78 MG/HR 2 mls/hr IV.CONT .Q24H [facility] Rx#:[id number] Nimbex Inj 200 MG In NS Inj 480 2500 / 2500 500 / 500 ML @ 1 MCG/KG/MIN 27.6 mls/hr IV.CONT TITRATE PRN Rx#: [id number] Nimbex Inj 200 MG In NS Inj 480 2000 / 2000 500 / 500 ML @ 1 MCG/KG/MIN 27.6 mls/hr IV.CONT TITRATE PRN Rx#: [id number] Versed Inj 50 mg In 50 ml @ 2 100 / 100 100 / 100 MG/HR 2 mls/hr IV.CONT TITRATE PRN Rx#:[id number] Diprivan 1000 mg/100 ml Inj 1, 600 / 600 600 / 600 200 / 200 000 mg In 100 ml @ 5 MCG/KG/MIN 4.77 mls/hr IV.CONT TITRATE PRN Rx#:[id number] Merrem Inj 1,000 MG In NS Inj 100 / 100 200 / 200 100 ML @ 200 mls/hr IV.SIG Q8H [facility] Rx#:[id number] KCl 40 mEq Premix Inj 40 meq In 100 / 100 100 ml @ 25 mls/hr IV.SIG UNSCH PRN Rx#:[id number] Nebcin Inj 840 MG In NS Inj 100 100 / 100 ML @ 100 mls/hr IV.SIG Q24H [facility] Rx#:[id number] Ancef 2 GM Premix Inj 2 gm In 50 / 50 100 / 100 50 ml @ 200 mls/hr IV.SIG Q8H [facility] Rx#:[id number] fentaNYL 10 mcg/mL Premix Drip 250 / 250 500 / 500 2,500 mcg In 250 ml @ 50 MCG/HR 5 mls/hr IV.SIG TITRATE PRN Rx #:[id number] Flolan (30,000 ng/mL) Neb 90 ML 100 / 100 100 / 100 100 / 100 In NS Inj 10 ML @ 5 mls/hr NEB Q8H [facility] Rx#:[id number] Tube Feeding 452 / 452 583 / 583 Water Bolus Amount 250 / 250 250 / 250 Output: Stool 500 / 500 200 / 200 Urine Amount (Catheter) 6125 / 6125 3700 / 3700 1375 / 1375 Indwelling Urethral Catheter 6125 / 6125 3700 / 3700 1375 / 1375 Other: Date of Last Bowel Movement 05/09/18 05/09/18 05/07/18 10:00 Sputum - Endotracheal Gram Stain - Final 05/07/18 10:00 Sputum - Endotracheal Sputum Culture - Preliminary gram negative rods 05/07/18 11:35 Blood - Peripheral Aerobic Blood Culture - Preliminary No growth in 2 days 05/07/18 11:35 Blood - Peripheral Anaerobic Blood Culture - Preliminary No growth in 2 days 05/07/18 10:00 Blood - Peripheral Aerobic Blood Culture - Preliminary No growth in 2 days 05/07/18 10:00 Blood - Peripheral Anaerobic Blood Culture - Preliminary No growth in 2 days 05/03/18 10:10 Blood - Peripheral Aerobic Blood Culture - Final Staphylococcus epidermidis 05/03/18 10:10 Blood - Peripheral Anaerobic Blood Culture - Final No growth in 5 days 05/03/18 11:20 Blood - Peripheral Aerobic Blood Culture - Final No growth in 5 days 05/03/18 11:20 Blood - Peripheral Anaerobic Blood Culture - Final No growth in 5 days Lab - Hematology Results 05/09/18 05/10/18 05:20 04:40 WBC 15.2 H 13.2 H RBC 3.95 L 4.25 L Hgb 11.8 L 12.6 L Hct 34.1 L 37.5 L MCV 86.5 88.1 MCH 29.9 29.7 MCHC 34.6 33.7 RDW 15.1 15.5 Plt Count 420 411 MPV 7.5 7.8 Prelim Diff (Auto) Slide review pending Neut % (Auto) 80.0 H 78.0 H Lymph % (Auto) 11.0 11.5 [place] % (Auto) 7.5 9.9 H Eos % (Auto) 1.0 0.3 Baso % (Auto) 0.5 0.3 Neut # (Auto) 12.1 H 10.3 H Lymph # (Auto) 1.7 1.5 [place] # (Auto) 1.1 H 1.3 H Eos # (Auto) 0.1 0.0 Baso # (Auto) 0.1 0.0 WBC Differential . Manual diff final Seg Neuts % (Manual) 72 H Band Neuts % (Manual) 5 Lymphocytes % (Manual) 12 Monocytes % (Manual) 10 H Myelocytes % (Man) 1 H Abs Neuts (Manual) 10.3 H Differential Comment Auto diff final . Platelet Estimate Normal Platelet Morphology Normal RBC Morphology Normal Lab - Chemistry Results 05/08/18 05/08/18 05/08/18 13:06 17:27 23:58 Sodium Potassium Chloride Carbon Dioxide Anion Gap BUN Creatinine Estimated GFR POC Glucose 146 H 152 H 166 H Random Glucose Calcium Phosphorus Magnesium Total Bilirubin AST ALT Alkaline Phosphatase Total Protein Albumin 05/09/18 05/09/18 05/09/18 05:20 05:20 11:28 Sodium 137 Potassium 3.5 Chloride 98 Carbon Dioxide 29.6 Anion Gap 9 BUN 21 H Creatinine 0.75 Estimated GFR Greater than 89 POC Glucose 124 H 124 H Random Glucose 122 H Calcium 8.1 L Phosphorus 4.0 Magnesium 2.2 Total Bilirubin 0.4 AST 14 L ALT 58 H Alkaline Phosphatase 72 Total Protein 6.5 Albumin 2.5 L 05/09/18 05/09/18 05/10/18 17:51 23:29 04:40 Sodium 137 Potassium 3.7 Chloride 97 L Carbon Dioxide 30.5 Anion Gap 10 BUN 21 H Creatinine 0.73 Estimated GFR Greater than 89 POC Glucose 136 H 136 H Random Glucose 152 H Calcium 8.0 L Phosphorus 4.5 Magnesium 2.2 Total Bilirubin 0.4 AST 21 ALT 60 H Alkaline Phosphatase 77 Total Protein 7.0 Albumin 2.6 L 05/10/18 05:59 Sodium Potassium Chloride Carbon Dioxide Anion Gap BUN Creatinine Estimated GFR POC Glucose 170 H Random Glucose Calcium Phosphorus Magnesium Total Bilirubin AST ALT Alkaline Phosphatase Total Protein Albumin Imaging: ITS Impressions Head CT 04/27/18 11:31 CONCLUSION: 1. Negative CT Head non contrast. . Abdomen/Pelvis CT 04/27/18 11:35 CONCLUSION: 1. Extensive atelectasis in both lower lobes. 2. The Stone catheter needs to be deflated and advanced into the bladder. The catheter is at the level of the prosthetic urethra. 3. No findings to indicate a bowel obstruction are seen. No free air free fluid is identified. Chest CT 04/27/18 11:35 CONCLUSION: 1. Consolidation both posterior lungs with air bronchograms. This could represent bilateral pneumonia or aspiration. Cervical Spine CT 04/27/18 11:36 CONCLUSION: 1. Negative trauma study. Lumbar Spine CT 04/27/18 11:59 CONCLUSION: 1. Negative for acute process 2. There is no evidence for vertebral compression. Head MRI 04/29/18 07:05 CONCLUSION: 1. Negative MRI of the brain. 2. Inflammatory process cannot be entirely excluded. 3. There are no infarcts identified. Chest X-Ray 05/10/18 00:00 CONCLUSION: Worsening bilateral pulmonary infiltrates. Physical Exam: examined in supine on rotaprone bed. GENERAL: NAD sedated and paralyzed int'd and on vent SKIN: Warm and dry. no rash. Skin break right shoulder dw RN about dressing. HEAD: Atraumatic. Normocephalic. EYES: Face mildly edematous ENT: orally intubated NECK: Trachea midline. No JVD. CARDIOVASCULAR: could not be assessed. well perfused periphery RESPIRATORY: clear GASTROINTESTINAL: soft abdomen MUSCULOSKELETAL: Extremities without clubbing, cyanosis, + 2 edema. NEUROLOGICAL: sedated and paralyzed PSYCHIATRIC: unable to assess Assessment and Plan - Plan Sepsis ongoing possible new. PNA, probably aspiration Acute VDRF on rotaprone bed. MSSA pneumonia. GNR pneumonia. Morbid obesity with likely obesity- hypoventilation sd Coag neg staph bacteremia, low grade doubt clin significance Recs: Continue Meropenem, tobramycin IV. Monitor urine output and Cr while on Tobramycin. Continue cefazolin IV Follow cultures Follow clinical course. sanket RN @ b/s sanket [facility] Critical ill patient. Time > 40 mins, chart reviewed, MAR reviewed, critical thinking and decision making. to resume care on Friday05/11/2018. If any changes in the interim please call sooner.
[2018-05-10 11:06] LABS: ABG Base Excess 4.2 mmol/L (-2-2); ABG PCO2 55 mmHg (38-42); ABG PO2 270 mmHG (61-120)
[2018-05-10] MEDS ORDERED: hydrALAZINE HCl Inj 20 MG/ML Vial IV.PUSH PRN (11:52)
--- NOTE | 2018-05-10 11:59 | P.PNCC ---
Subjective Subjective Remarks/Hospital Course: Patient is approximately 22 years old male obese, was found on the floor by a family member, downtime is unknown. EMS was called, patient was given Narcan with no response, he was intubated on the scene, apparently GCS 3. Found bag of PCP next to the patient. Patient has history of psychiatric disorder ? bipolar disorder and I am told he has attempted suicide in the past. There is also mention about suspicion of ethylene glycol ingestion, but his serum osmolality is 307 his osmolar gap is only 13. Bicarb is 26, ethylene glycol seems unlikely. Ethanol was negative urine drug screen only positive for benzo. I evaluated the patient in the ICU at the [facility]. Patient had a CT of the head which was negative. Rest of the workup unremarkable except for bibasilar atelectasis/aspiration pneumonia. Patient's white count is elevated at 17.1, glucose is 232 lactic acid was 2.8. He received multiple fluid boluses. At this time he is not on any sedation but remains unresponsive no response to deep pain 04/28 Patient remains intubated off sedation unresponsive. Afebrile. 04/29: MRI of the brain revealed no acute intracranial findings. EEG to be performed tomorrow. More arousable and moves all 4 extremities but not following commands. Placed on dexamethasone E drip. 2 feeds will be restarted 04/30: T-max 101.4. Currently afebrile. No bowel movement since admission. Arousable and follows simple commands late last night but currently on sedation for agitation. Increased FiO2 noted. Will attempt to gently diurese and continue antibiotics for pansensitive staph aureus/group a beta strep sputum 05/01 Patient is sedated with Fentanyl, Diprivan and intubated. T:101.1 at 5am. Placed on APRV overnight. 05/02 Patient is sedated with Diprivan and Fentanyl drips. Tmax 101.3, on PC/AC with PEEP:12, FIO2 80%, IP:30 05/03 Patient is heavily sedated with Diprivan, Fentanyl and Versed . On PC/AC with PEEP: 14 and FIO2 100$ sats 92%, CXR yesterday showed diffuse b/l pulm infiltrates, started on Flolan nebs. Had Tmax 102.6 last night. 05/04 Patient was placed on rotoprone bed yesterday sedated with Diprivan, Versed and Fentanyl infusion and on neuromuscular blockade( Nimbex) On PC/AC His FIO2 requirements is better now on FIO2:50% from 100% with PEEP:14. T:102.6 05/05 Patient remains intubated and sedated on Bumex drio0.5mg/hr, T:99.7 at 3am. On PC/AC with PEEP:1 and FIO2 60%- sats 95%. 05/06 Patient remains sedated and intubated on rotoprone bed with improvements in his oxygenation. Now on PC/AC with PEEP:10, FIO2 40%. Afebrile. On Bumex drip 0.5mg/hr. 05/07 Patient remains on rotoprone bed sedated and on Nimbex drip. He is also on Bumex drip 0.5mg/hr with good urine output . 05/08 Patient remains sedated and intubated. On Flolan, and Bumex drip. Afebrile. 05/09 Patient desat overnight now on PC/AC with PEEP:10 and FIO2 100% sats 96%. Had T: 100.4 at midnight. Sputum cx 05/07 GNR. Remains sedated on Flolan and Bumex drip. SUBJECTIVE: 05/10: Resting in bed. Remains on PC/AC rate increased to 16. FiO2 80%. Low- grade fevers noted. Remains on epoprostenol and bumetanide drips. Hypertension noted. Aspirated this a.m. and so discontinued tube feeding. We will start PPN today. Objective Vital Signs / I&O: Vital Signs 05/09/18 12:00 05/09/18 15:25 05/09/18 16:00 Temperature 100.7 F H 99.1 F Pulse Rate 122 H 94 H Respiratory Rate 14 14 14 Pulse Oximetry 89 L 93 L 93 L 05/09/18 19:00 05/09/18 20:00 05/09/18 20:02 Temperature 99.9 F H 99.9 F H Pulse Rate 107 H 107 H Respiratory Rate 14 14 15 Pulse Oximetry 85 L 92 L 92 L 05/09/18 20:11 05/09/18 21:00 05/09/18 22:00 Temperature 99.7 F H 99.5 F Pulse Rate 100 H 104 H 96 H Respiratory Rate 14 14 14 Pulse Oximetry 92 L 87 L 05/09/18 23:00 05/09/18 23:20 05/09/18 23:50 Temperature 99.5 F Pulse Rate 92 H 91 H Respiratory Rate 14 15 14 Pulse Oximetry 95 94 L 05/10/18 00:00 05/10/18 01:00 05/10/18 02:00 Temperature 99.5 F 99.3 F 99.5 F Pulse Rate 91 H 92 H 91 H Respiratory Rate 14 4 L Pulse Oximetry 94 L 95 95 05/10/18 03:00 05/10/18 04:00 05/10/18 05:00 Temperature 99.3 F 98.2 F 98.8 F Pulse Rate 91 H 121 H 122 H Respiratory Rate 14 14 14 Pulse Oximetry 92 L 98 95 05/10/18 05:08 05/10/18 05:09 05/10/18 06:00 Temperature 98.6 F Pulse Rate 122 H 104 H Respiratory Rate 14 14 Pulse Oximetry 94 L 98 05/10/18 07:00 05/10/18 07:19 05/10/18 08:00 Temperature 98.2 F 98.6 F Pulse Rate 101 H 106 H Respiratory Rate 14 Pulse Oximetry 91 L 95 97 Intake & Output 05/09/18 05/10/18 05/10/18 18:59 06:59 18:59 Intake Total 4502 / 4502 5111 / 5111 800 / 800 Output Total 6625 / 6625 3900 / 3900 2250 / 2250 Balance -2123 / -2123 1211 / 1211 -1450 / -1450 Weight 162.6 kg Intake: IV 3800 / 3800 4278 / 4278 800 / 800 Bumex Inj 25 mg In 100 ml @ 0.5 78 / 78 MG/HR 2 mls/hr IV.CONT .Q24H [facility] Rx#:[id number] Nimbex Inj 200 MG In NS Inj 480 2500 / 2500 500 / 500 ML @ 1 MCG/KG/MIN 27.6 mls/hr IV.CONT TITRATE PRN Rx#: [id number] Nimbex Inj 200 MG In NS Inj 480 2000 / 2000 500 / 500 ML @ 1 MCG/KG/MIN 27.6 mls/hr IV.CONT TITRATE PRN Rx#: [id number] Versed Inj 50 mg In 50 ml @ 2 100 / 100 100 / 100 MG/HR 2 mls/hr IV.CONT TITRATE PRN Rx#:[id number] Diprivan 1000 mg/100 ml Inj 1, 600 / 600 600 / 600 200 / 200 000 mg In 100 ml @ 5 MCG/KG/MIN 4.77 mls/hr IV.CONT TITRATE PRN Rx#:[id number] Merrem Inj 1,000 MG In NS Inj 100 / 100 200 / 200 100 ML @ 200 mls/hr IV.SIG Q8H [facility] Rx#:[id number] KCl 40 mEq Premix Inj 40 meq In 100 / 100 100 ml @ 25 mls/hr IV.SIG UNSCH PRN Rx#:[id number] Nebcin Inj 840 MG In NS Inj 100 100 / 100 ML @ 100 mls/hr IV.SIG Q24H [facility] Rx#:[id number] Ancef 2 GM Premix Inj 2 gm In 50 / 50 100 / 100 50 ml @ 200 mls/hr IV.SIG Q8H [facility] Rx#:[id number] fentaNYL 10 mcg/mL Premix Drip 250 / 250 500 / 500 2,500 mcg In 250 ml @ 50 MCG/HR 5 mls/hr IV.SIG TITRATE PRN Rx #:[id number] Flolan (30,000 ng/mL) Neb 90 ML 100 / 100 100 / 100 100 / 100 In NS Inj 10 ML @ 5 mls/hr NEB Q8H [facility] Rx#:[id number] Tube Feeding 452 / 452 583 / 583 Water Bolus Amount 250 / 250 250 / 250 Output: Stool 500 / 500 200 / 200 Urine Amount (Catheter) 6125 / 6125 3700 / 3700 2250 / 2250 Indwelling Urethral Catheter 6125 / 6125 3700 / 3700 2250 / 2250 Other: Date of Last Bowel Movement 05/09/18 05/09/18 Result Diagrams: 05/10/18 04:40 05/10/18 04:40 Other Results: Microbiology 05/07/18 11:35 Blood - Peripheral Aerobic Blood Culture - Preliminary No growth in 3 days 05/07/18 11:35 Blood - Peripheral Anaerobic Blood Culture - Preliminary No growth in 3 days 05/07/18 10:00 Blood - Peripheral Aerobic Blood Culture - Preliminary No growth in 3 days 05/07/18 10:00 Blood - Peripheral Anaerobic Blood Culture - Preliminary No growth in 3 days 05/07/18 10:00 Sputum - Endotracheal Gram Stain - Final 05/07/18 10:00 Sputum - Endotracheal Sputum Culture - Preliminary gram negative rods 05/03/18 10:10 Blood - Peripheral Aerobic Blood Culture - Final Staphylococcus epidermidis 05/03/18 10:10 Blood - Peripheral Anaerobic Blood Culture - Final No growth in 5 days 05/03/18 11:20 Blood - Peripheral Aerobic Blood Culture - Final No growth in 5 days 05/03/18 11:20 Blood - Peripheral Anaerobic Blood Culture - Final No growth in 5 days 05/01/18 14:27 Blood - Peripheral Aerobic Blood Culture - Final No growth in 5 days 05/01/18 14:27 Blood - Peripheral Anaerobic Blood Culture - Final No growth in 5 days 05/01/18 14:20 Blood - Peripheral Aerobic Blood Culture - Final No growth in 5 days 05/01/18 14:20 Blood - Peripheral Anaerobic Blood Culture - Final No growth in 5 days 05/02/18 17:30 Bronchial - Bronchial Gram Stain - Final 05/02/18 17:30 Bronchial - Bronchial Bronchial Culture - Final Staphylococcus aureus 05/01/18 03:00 Sputum - Endotracheal Gram Stain - Final 05/01/18 03:00 Sputum - Endotracheal Sputum Culture - Final Staphylococcus aureus 04/27/18 11:55 Blood - Line Aerobic Blood Culture - Final No growth in 5 days 04/27/18 11:55 Blood - Line Anaerobic Blood Culture - Final No growth in 5 days 04/27/18 12:00 Blood - Line Aerobic Blood Culture - Final No growth in 5 days 04/27/18 12:00 Blood - Line Anaerobic Blood Culture - Final No growth in 5 days 04/27/18 14:30 Sputum - Oral Tracheal Aspirate Gram Stain - Final 04/27/18 14:30 Sputum - Oral Tracheal Aspirate Sputum Culture - Final Beta Strep not group A Staphylococcus aureus Imaging: Chest X-Ray 04/27/18 11:31 CONCLUSION: ETT in good position. Cardiomegaly with moderate interstitial edema. Head CT 04/27/18 11:31 CONCLUSION: 1. Negative CT Head non contrast. . Abdomen/Pelvis CT 04/27/18 11:35 CONCLUSION: 1. Extensive atelectasis in both lower lobes. 2. The Stone catheter needs to be deflated and advanced into the bladder. The catheter is at the level of the prosthetic urethra. 3. No findings to indicate a bowel obstruction are seen. No free air free fluid is identified. Chest CT 04/27/18 11:35 CONCLUSION: 1. Consolidation both posterior lungs with air bronchograms. This could represent bilateral pneumonia or aspiration. Cervical Spine CT 04/27/18 11:36 CONCLUSION: 1. Negative trauma study. Lumbar Spine CT 04/27/18 11:59 CONCLUSION: 1. Negative for acute process 2. There is no evidence for vertebral compression. Chest X-Ray 04/27/18 12:01 CONCLUSION: ETT in good position. Increasing interstitial edema. Chest X-Ray 04/27/18 16:04 CONCLUSION: 1. Double placement of left internal jugular central venous line with no visualized pneumothorax on the supine study. 2. The patient remains intubated and there are alveolar opacities greatest in the right lung. Chest X-Ray 04/28/18 15:23 CONCLUSION: 1. Worsening perihilar and bibasilar opacities most characteristic of pulmonary edema. 2. Blunting of the costophrenic angles consistent with effusions. 3. Cardiomegaly. 4. Placement of nasogastric tube which is not well visualized. Chest X-Ray 04/29/18 04:00 CONCLUSION: Right greater than left parenchymal opacities, intervally worse on the right and improved on the left. Head MRI 04/29/18 07:05 CONCLUSION: 1. Negative MRI of the brain. 2. Inflammatory process cannot be entirely excluded. 3. There are no infarcts identified. Chest X-Ray 04/30/18 06:00 CONCLUSION: No significant change right greater than left basilar consolidation and pleural effusions. Chest X-Ray 05/01/18 14:38 CONCLUSION: Support apparatus in good position. Stable chest. Chest X-Ray 05/02/18 00:00 CONCLUSION: No significant change. Right greater than left consolidation and small effusions again noted. Chest X-Ray 05/04/18 06:59 CONCLUSION: 1. Right upper lobe consolidation. 2. Left lung clear. Chest X-Ray 05/05/18 00:00 CONCLUSION: Worsening right upper lung consolidation. Chest X-Ray 05/06/18 08:00 CONCLUSION: No significant improvement. Persistent bilateral airspace disease as described. Supportive devices remain in good position. Chest X-Ray 05/07/18 00:00 CONCLUSION: Right lower lobe medial consolidation not present previously, right upper lobe infiltrate has resolved since the prior exam. Chest X-Ray 05/09/18 04:00 CONCLUSION: Low lung volumes. New consolidation right upper lobe. Chest X-Ray 05/10/18 00:00 CONCLUSION: Worsening bilateral pulmonary infiltrates. Objective Remarks: GENERAL: Patient is 22 yo intubated . SKIN: Warm and dry. No rash HEAD: Normocephalic. EYES: No scleral icterus. No injection or drainage. NECK: Supple, trachea midline. No JVD or lymphadenopathy. CARDIOVASCULAR: tachy, rr. without murmurs, gallops, or rubs. RESPIRATORY: Breath sounds equal bilaterally. No accessory muscle use. GASTROINTESTINAL: Abdomen soft, non-tender, nondistended. MUSCULOSKELETAL: No significant peripheral edema. Neuro: intubated, currently on Nimbex drip. Assessment and Plan - Assessment and Plan Plan: NEURO/PSYCH: Acute metabolic encephalopathy Suspected PCP overdose Suspected ethylene glycol overdose Suicide attempt -PCP was found near the patient ,continue supportive care -On Diprivan at 50 nithya grams per kilogram per minute. Midazolam 10 mg an hour and Fentanyl 250 mcg an hour infusion for sedation and vent synchrony -monitor neuro status. On Neuromuscular blockade( Nimbex)monitor train of 4 -Urine drug screen positive for benzos only -Psychiatric consult after neurological recovery previously on Wellbutrin. -CT of the head negative. MRI of brain negative. Cannot rule out inflammatory process - EEG 04/30 and follow-up EEG 04/28 with no epileptic activity -Ammonia level: 21 -Neuro is following- Dr. Landon RESP: Acute respiratory failure Bibasilar aspiration pneumonitis Severe ARDS Tobacco abuse -Continue with vent support keep sats >92% -On PC/AC RR16, IP:1.28, IT:1.1, PEEP:10 and FIO2 80%. Decrease FIO2 as kit -Ventilator bundle. -Bronchodilators (ipratropium/albuterol, Q4), Decrease Solumederol 40mg Q8 - Continue with epoprostenol nebs ( 40,000 ng/ml) CXR today worsening consolidation right upper lobe, left lobe. Likely aspiration. s/p bronch 05/02 thick secretions suctioned to clear. No evidence of EBL or bleeding. On rotoprone bed for proning to improve ventilation/perfusion matching. Nicotine patch 21 mg daily CV: Essential hypertension -Monitor HR and BP keep MAP>65mmHg -Lactic acid 1.7 -On Lopressor 50mg TID -Echo 04/28: EF 60-65%, PASP 36mmHg GI: Elevated ALT Hypoalbuminemia - IV famotidine -On tube feeds Jevity 1.5 will goal rate 75ml/hr currently on hold Docusate serum/senna 1 tablet twice daily for bowel regimen. Lactulose 30 cc twice daily and MiraLAX 17 g twice daily. free water 250ml Q12 Renal/FEN/: -Monitor renal function, I/O's, electrolytes replacement as needed -CT abd/pelvis: No findings to indicate a bowel obstruction are seen. No free air free fluid is identified. -On bumetanide 0.5mg/hr- good response in UOP. ID: MSSA/group A beta strep pneumonia Gram-negative rhianna sputum Abx per ID- On Cefazolin, meropenem, Tobramycin- monitor for signs of infections ( Fever, WBC) Panculture today ( Blood, sputum, UA) 05/07 05/07 Sputm cx: GNR 04/27 Sputum: Staph aureus/MSSA and beta strep not group A. 05/03 BC: GPC : Coag neg staph 05/02 bronch cx: Staph Aureus ID is following HEME: Normocytic anemia Leukocytosis -Monitor CBC, coags ENDO/FEN: Hyperglycemia -Electrolyte replacement per protocol -Sliding scale insulin PROPH: -Bilateral lower extremity SCDs. Subcu heparin/famotidine LINES: -Utilize peripheral IVs, [facility] central line placed in ED 04/27 Patient is high risk for a routine line change giving his severe ARDS and is on Rotoprone bed with high PEEP:10 and FIO2: now 80%. Suspicious for line infection is low at this time. He is at high risk for complications. PICC line was cleared by ID. Discussed with Dr. Wiley. PICC line inserted 05/08 readjust PICC and d/c central line afterwards. Discussed with patient's father and mother and updated him on his condition CC time 40 min
[2018-05-10] MEDS ORDERED: [UNRECOGNIZED DRUG - OTHER] IV.SIG SCH (20:00)
[2018-05-10] MEDS ORDERED: FOLIC ACID IV.SIG SCH (20:00)
[2018-05-10] MEDS ORDERED: MULTIVITAMIN IV.SIG SCH (20:00)
[2018-05-10 20:51] LABS: Anion Gap 10 meq/L (5-15); Blood Urea Nitrogen 25 mg/dL (7-18); Carbon Dioxide 27.9 meq/L (21.0-32.0); Chloride 102 meq/L (98-107); Glomerular Filtration Rate Greater Than 89 mL/min (>89); Glucose,Random 131 mg/dL (74-106); Potassium 3.6 meq/L (3.5-5.1); Sodium 140 meq/L (136-145)
[2018-05-10] MEDS: SODIUM CHLOR 0.9% IV.SIG SCH (21:04)
[2018-05-10] MEDS: TOBRAMYCIN IV.SIG SCH (21:04)
[2018-05-11] MEDS: Insulin NovoLOG Aspart Correctional Sugar Inj SQ SCH ×5 (00:09→23:44)
[2018-05-11] MEDS: Artificial Tears Opth Drops 15 ML Bottle EACH EYE SCH ×4 (00:10→23:44)
[2018-05-11] MEDS: Propofol 1000 mg/100 ml Inj 1,000 MG/100 ML BOTTLE IV.CONT PRN ×12 (00:26→22:11)
[2018-05-11] MEDS: CISATRACURIUM IV.CONT PRN ×11 (01:10→23:34)
[2018-05-11] MEDS: SODIUM CHLOR 0.9% IV.CONT PRN ×11 (01:10→23:34)
[2018-05-11] MEDS: Midazolam 50 MG/50 ML Inj 50 MG/50 ML BAG IV.CONT PRN ×4 (01:11→15:29)
[2018-05-11] MEDS: Heparin - SQ 10,000 UNITS/ML Vial SQ SCH ×3 (03:30→20:06)
[2018-05-11] MEDS: ceFAZolin 2 GM Premix Inj 2 GM/50 ML PIGGYBACK IV.SIG SCH ×2 (03:31→11:22)
--- NOTE | 2018-05-11 03:45 | XR ---
EXAM DATE: 05/11/2018 3:34 AM EST AGE/SEX: 22 years / Male INDICATIONS: Shortness of breath, possible pulmonary disease. CLINICAL DATA: This is the patient's subsequent encounter. Patient reports that signs and symptoms h ave been present for 2 weeks and indicates a pain score of Nonresponsive. MEDICAL/SURGICAL HISTORY: None. Tonsillectomy. COMPARISON: C, CHEST 1V SINGLE AP, 05/10/2018. . FINDINGS: 2 AP views of the chest. Endotracheal tube, nasogastric tube, right-sided PICC line remain in place. Diffuse left lung opacity again seen. Confluent right upper lung zone opacity again seen. Left lung o pacity is slightly increased from the prior study. Right lung opacity is unchanged. Cardiomediastinal silhouette is somewhat obscured but grossly unchanged. No evidence of pneumothorax. CONCLUSION: Left greater than right pulmonary parenchymal opacity with increase in diffuse left lung opacity. Electronically signed by: Uriel Crump MD 05/11/2018 3:43 AM EST
--- NOTE | 2018-05-11 03:46 | XR ---
EXAM DATE: 05/11/2018 3:33 AM EST AGE/SEX: 22 years / Male INDICATIONS: Abdominal pain. CLINICAL DATA: This is the patient's subsequent encounter. Patient reports that signs and symptoms h ave been present for 2 weeks and indicates a pain score of Nonresponsive. MEDICAL/SURGICAL HISTORY: None. Tonsillectomy. COMPARISON: No prior exams available for comparison. FINDINGS: Scattered gas in nondilated right-sided colon. Otherwise a paucity of bowel gas is seen. No abnormal abdominal calcification identified. Osseous structures within normal limits. CONCLUSION: Paucity of bowel gas. Otherwise within normal limits. Electronically signed by: Uriel Crump MD 05/11/2018 3:44 AM EST
[2018-05-11 04:12] LABS: Baso % (Auto) 0.3 % (0.0-2.0); Eos % (Auto) 0.1 % (0.0-4.0); Hematocrit 35.9 % (39.0-51.0); Hemoglobin 11.8 gm/dL (13.0-17.0); Lymph # (Auto) 1.5 th/mm3 (1.0-4.8); Lymph % (Auto) 10.7 % (9.0-44.0); Mean Corpuscular Hemoglobin 29.3 pg (27.0-34.0); Mean Corpuscular Volume 88.8 fL (80.0-100.0); Mean Platelet Volume 7.6 fL (7.0-11.0); Mono # (Auto) 0.9 th/mm3 (0.0-0.9); Mono % (Auto) 6.1 % (0.0-8.0); Neut # (Auto) 11.7 th/mm3 (1.8-7.7); Neut % (Auto) 82.8 % (16.0-70.0); Platelet Count 401 th/mm3 (150-450); Red Blood Count 4.04 mil/mm3 (4.50-5.90); Red Cell Distribution Width 15.6 % (11.6-17.2); White Blood Count 14.1 th/mm3 (4.0-11.0)
[2018-05-11 04:21] LABS: Activated Partial Thrombo Time 31.7 sec (23.4-31.7); INR 1.1 Ratio; Prothrombin Time 11.4 sec (9.8-11.6)
[2018-05-11 04:36] LABS: Alanine Aminotransferase 52 U/L (9-52); Albumin 2.7 g/dL (3.4-5.0); Amylase 77 U/L (25-115); Anion Gap 10 meq/L (5-15); Aspartate Aminotransferase 30 U/L (15-39); Blood Urea Nitrogen 25 mg/dL (7-18); Calcium 8.2 mg/dL (8.5-10.1); Carbon Dioxide 28.5 meq/L (21.0-32.0); Chloride 100 meq/L (98-107); Glomerular Filtration Rate Greater Than 89 mL/min (>89); Glucose,Random 160 mg/dL (74-106); Lipase 549 U/L (73-393); Magnesium 2.4 mg/dL (1.5-2.5); Phosphorus 4.4 mg/dL (2.5-4.9); Potassium 3.5 meq/L (3.5-5.1); Sodium 138 meq/L (136-145)
[2018-05-11 04:39] LABS: Alkaline Phosphatase 69 U/L (45-117); Creatine Kinase 995 U/L (39-308); Total Protein 6.8 g/dL (6.4-8.2)
[2018-05-11 04:57] LABS: CKMB Percent 0.4 % (0.0-4.0)
[2018-05-11] MEDS: MethylPREDNISolone Sod Succinate Inj 40 MG/ML Vial IV.PUSH SCH ×3 (05:20→21:05)
[2018-05-11 05:25] LABS: ABG PCO2 43 mmHg (38-42); ABG PO2 77 mmHG (61-120)
[2018-05-11] MEDS: fentaNYL 10 mcg/mL Premix Drip 2,500 MCG/250 ML BAG IV.SIG PRN ×3 (06:06→21:03)
[2018-05-11] MEDS: Bumetanide Inj 25 MG/100 ML BAG IV.CONT SCH (06:07)
[2018-05-11] MEDS: Potassium Chlor 40 mEq Premix 40 MEQ/100 ML PIGGYBACK IV.SIG PRN (06:38)
--- NOTE | 2018-05-11 07:03 | P.PNCC ---
Subjective Subjective Remarks/Hospital Course: Patient is approximately 22 years old male obese, was found on the floor by a family member, downtime is unknown. EMS was called, patient was given Narcan with no response, he was intubated on the scene, apparently GCS 3. Found bag of PCP next to the patient. Patient has history of psychiatric disorder ? bipolar disorder and I am told he has attempted suicide in the past. There is also mention about suspicion of ethylene glycol ingestion, but his serum osmolality is 307 his osmolar gap is only 13. Bicarb is 26, ethylene glycol seems unlikely. Ethanol was negative urine drug screen only positive for benzo. I evaluated the patient in the ICU at the [facility]. Patient had a CT of the head which was negative. Rest of the workup unremarkable except for bibasilar atelectasis/aspiration pneumonia. Patient's white count is elevated at 17.1, glucose is 232 lactic acid was 2.8. He received multiple fluid boluses. At this time he is not on any sedation but remains unresponsive no response to deep pain 04/28 Patient remains intubated off sedation unresponsive. Afebrile. 04/29: MRI of the brain revealed no acute intracranial findings. EEG to be performed tomorrow. More arousable and moves all 4 extremities but not following commands. Placed on dexamethasone E drip. 2 feeds will be restarted 04/30: T-max 101.4. Currently afebrile. No bowel movement since admission. Arousable and follows simple commands late last night but currently on sedation for agitation. Increased FiO2 noted. Will attempt to gently diurese and continue antibiotics for pansensitive staph aureus/group a beta strep sputum 05/01 Patient is sedated with Fentanyl, Diprivan and intubated. T:101.1 at 5am. Placed on APRV overnight. 05/02 Patient is sedated with Diprivan and Fentanyl drips. Tmax 101.3, on PC/AC with PEEP:12, FIO2 80%, IP:30 05/03 Patient is heavily sedated with Diprivan, Fentanyl and Versed . On PC/AC with PEEP: 14 and FIO2 100$ sats 92%, CXR yesterday showed diffuse b/l pulm infiltrates, started on Flolan nebs. Had Tmax 102.6 last night. 05/04 Patient was placed on rotoprone bed yesterday sedated with Diprivan, Versed and Fentanyl infusion and on neuromuscular blockade( Nimbex) On PC/AC His FIO2 requirements is better now on FIO2:50% from 100% with PEEP:14. T:102.6 05/05 Patient remains intubated and sedated on Bumex drio0.5mg/hr, T:99.7 at 3am. On PC/AC with PEEP:1 and FIO2 60%- sats 95%. 05/06 Patient remains sedated and intubated on rotoprone bed with improvements in his oxygenation. Now on PC/AC with PEEP:10, FIO2 40%. Afebrile. On Bumex drip 0.5mg/hr. 05/07 Patient remains on rotoprone bed sedated and on Nimbex drip. He is also on Bumex drip 0.5mg/hr with good urine output . 05/08 Patient remains sedated and intubated. On Flolan, and Bumex drip. Afebrile. 05/09 Patient desat overnight now on PC/AC with PEEP:10 and FIO2 100% sats 96%. Had T: 100.4 at midnight. Sputum cx 05/07 GNR. Remains sedated on Flolan and Bumex drip. SUBJECTIVE: 05/10: Resting in bed. Remains on PC/AC rate increased to 16. FiO2 80%. Low- grade fevers noted. Remains on epoprostenol and bumetanide drips. Hypertension noted. Aspirated this a.m. and so discontinued tube feeding. We will start PPN today. 05/11 Patient remains on rotoprone bed, sedated and intubated. Afebrile. On PC/ AC with PEEP;10 and FIO2 55%.On Flolan and Bumex drip 0.5mg/hr Objective Vital Signs / I&O: Vital Signs 05/10/18 07:00 05/10/18 07:19 05/10/18 08:00 Temperature 98.2 F 98.6 F Pulse Rate 101 H 106 H Respiratory Rate 14 Pulse Oximetry 91 L 95 97 05/10/18 09:00 05/10/18 10:00 05/10/18 11:00 Temperature 98.4 F 98.6 F 97.3 F L Pulse Rate 113 H 107 H Respiratory Rate Pulse Oximetry 94 L 94 L 98 11/11/18 12:00 05/10/18 12:23 05/10/18 13:00 Temperature 97.7 F 97.3 F L Pulse Rate 98 H 100 H 115 H Respiratory Rate 16 16 Pulse Oximetry 92 L 97 05/10/18 14:00 05/10/18 15:00 05/10/18 15:10 Temperature 98.8 F 99.5 F Pulse Rate 105 H 104 H 103 H Respiratory Rate 16 Pulse Oximetry 96 96 05/10/18 15:11 05/10/18 16:00 05/10/18 17:00 Temperature 99.1 F 98.6 F Pulse Rate 99 H 101 H Respiratory Rate 16 Pulse Oximetry 96 95 95 05/10/18 18:00 05/10/18 19:00 05/10/18 20:00 Temperature 99.9 F H 99.5 F 99.5 F Pulse Rate 103 H 99 H Respiratory Rate 16 Pulse Oximetry 97 96 94 L 05/10/18 21:00 05/10/18 21:25 05/10/18 22:00 Temperature 99.7 F H 99.0 F Pulse Rate 95 H 94 H 97 H Respiratory Rate 16 16 6 L Pulse Oximetry 95 94 L 91 L 05/10/18 23:00 05/10/18 23:41 05/11/18 00:00 Temperature 99.1 F 98.1 F Pulse Rate 95 H 95 H 93 H Respiratory Rate 16 Pulse Oximetry 92 L 91 L 88 L 05/11/18 01:00 05/11/18 02:00 05/11/18 03:00 Temperature 98.8 F 99.1 F 98.8 F Pulse Rate 93 H 96 H 124 H Respiratory Rate Pulse Oximetry 90 L 91 L 91 L 05/11/18 04:00 05/11/18 04:27 05/11/18 05:00 Temperature 98.2 F 98.6 F Pulse Rate 131 H 121 H 111 H Respiratory Rate 16 Pulse Oximetry 92 L 90 L 89 L 05/11/18 06:00 Temperature 99.5 F Pulse Rate 111 H Respiratory Rate Pulse Oximetry 89 L Intake & Output 05/10/18 05/10/18 05/11/18 06:59 18:59 06:59 Intake Total 5111 / 5111 4321 / 4321 4300 / 4300 Output Total 3900 / 3900 6300 / 6300 7275 / 7275 Balance 1211 / 1211 -1978 / -1978 -2975 / -2975 Weight 162.6 kg 159.3 kg Intake: IV 4278 / 4278 3850 / 3850 4200 / 4200 Bumex Inj 25 mg In 100 ml @ 0.5 78 / 78 50 / 50 MG/HR 2 mls/hr IV.CONT .Q24H [facility] Rx#:[id number] Nimbex Inj 200 MG In NS Inj 480 500 / 500 ML @ 1 MCG/KG/MIN 27.6 mls/hr IV.CONT TITRATE PRN Rx#: [id number] Nimbex Inj 200 MG In NS Inj 480 2000 / 2000 2500 / 2500 2500 / 2500 ML @ 1 MCG/KG/MIN 27.6 mls/hr IV.CONT TITRATE PRN Rx#: [id number] Versed Inj 50 mg In 50 ml @ 2 100 / 100 150 / 150 150 / 150 MG/HR 2 mls/hr IV.CONT TITRATE PRN Rx#:[id number] Diprivan 1000 mg/100 ml Inj 1, 600 / 600 600 / 600 600 / 600 000 mg In 100 ml @ 5 MCG/KG/MIN 4.77 mls/hr IV.CONT TITRATE PRN Rx#:[id number] Merrem Inj 1,000 MG In NS Inj 200 / 200 100 / 100 200 / 200 100 ML @ 200 mls/hr IV.SIG Q8H [facility] Rx#:[id number] Nebcin Inj 840 MG In NS Inj 100 100 / 100 100 / 100 ML @ 100 mls/hr IV.SIG Q24H [facility] Rx#:[id number] Ancef 2 GM Premix Inj 2 gm In 100 / 100 50 / 50 100 / 100 50 ml @ 200 mls/hr IV.SIG Q8H [facility] Rx#:[id number] fentaNYL 10 mcg/mL Premix Drip 500 / 500 250 / 250 500 / 500 2,500 mcg In 250 ml @ 50 MCG/HR 5 mls/hr IV.SIG TITRATE PRN Rx #:[id number] Flolan (30,000 ng/mL) Neb 90 ML 100 / 100 200 / 200 In NS Inj 10 ML @ 5 mls/hr NEB Q8H [facility] Rx#:[id number] Tube Feeding 583 / 583 211 / 211 Tube Irrigant 60 / 60 100 / 100 Water Bolus Amount 250 / 250 200 / 200 Output: Stool 200 / 200 500 / 500 50 / 50 Urine Amount (Catheter) 3700 / 3700 5500 / 5500 7125 / 7125 Indwelling Urethral Catheter 3700 / 3700 5500 / 5500 7125 / 7125 Gastric Drainage 300 / 300 100 / 100 Orogastric Tube 300 / 300 100 / 100 Other: Date of Last Bowel Movement 05/09/18 05/10/18 Result Diagrams: 05/11/18 03:56 05/11/18 03:56 Other Results: Laboratory Results - last 12 hr 05/10/18 05/10/18 05/11/18 19:50 23:57 03:56 WBC RBC Hgb Hct MCV MCH MCHC RDW Plt Count MPV Prelim Diff (Auto) Neut % (Auto) Lymph % (Auto) Chambers % (Auto) Eos % (Auto) Baso % (Auto) Neut # (Auto) Lymph # (Auto) Chambers # (Auto) Eos # (Auto) Baso # (Auto) Differential Comment PT INR APTT Sodium 140 138 Potassium 3.6 3.5 Chloride 102 100 Carbon Dioxide 27.9 28.5 Anion Gap 10 10 BUN 25 H 25 H Creatinine 0.83 0.81 Estimated GFR Greater than 89 Greater than 89 POC Glucose 107 Random Glucose 131 H 160 H Lactic Acid Calcium 8.0 L 8.2 L Phosphorus 4.4 Magnesium 2.4 Total Bilirubin 0.3 AST 30 ALT 52 Alkaline Phosphatase 69 Ammonia Total Creatine Kinase 995 H CK-MB (CK-2) 4.0 H CK-MB (CK-2) % 0.4 Total Protein 6.8 Albumin 2.7 L Amylase 77 Lipase 549 H 05/11/18 05/11/18 05/11/18 03:56 03:56 03:56 WBC 14.1 H RBC 4.04 L Hgb 11.8 L Hct 35.9 L MCV 88.8 MCH 29.3 MCHC 33.0 RDW 15.6 Plt Count 401 MPV 7.6 Prelim Diff (Auto) Slide review pending Neut % (Auto) 82.8 H Lymph % (Auto) 10.7 Chambers % (Auto) 6.1 Eos % (Auto) 0.1 Baso % (Auto) 0.3 Neut # (Auto) 11.7 H Lymph # (Auto) 1.5 Chambers # (Auto) 0.9 Eos # (Auto) 0.0 Baso # (Auto) 0.0 Differential Comment . PT 11.4 INR 1.1 APTT 31.7 Sodium Potassium Chloride Carbon Dioxide Anion Gap BUN Creatinine Estimated GFR POC Glucose Random Glucose Lactic Acid 1.3 Calcium Phosphorus Magnesium Total Bilirubin AST ALT Alkaline Phosphatase Ammonia Total Creatine Kinase CK-MB (CK-2) CK-MB (CK-2) % Total Protein Albumin Amylase Lipase 05/11/18 05/11/18 03:56 06:04 WBC RBC Hgb Hct MCV MCH MCHC RDW Plt Count MPV Prelim Diff (Auto) Neut % (Auto) Lymph % (Auto) Chambers % (Auto) Eos % (Auto) Baso % (Auto) Neut # (Auto) Lymph # (Auto) Chambers # (Auto) Eos # (Auto) Baso # (Auto) Differential Comment PT INR APTT Sodium Potassium Chloride Carbon Dioxide Anion Gap BUN Creatinine Estimated GFR POC Glucose 130 H Random Glucose Lactic Acid Calcium Phosphorus Magnesium Total Bilirubin AST ALT Alkaline Phosphatase Ammonia Less than 10 L Total Creatine Kinase CK-MB (CK-2) CK-MB (CK-2) % Total Protein Albumin Amylase Lipase Imaging: Head CT 04/27/18 11:31 CONCLUSION: 1. Negative CT Head non contrast. . Abdomen/Pelvis CT 04/27/18 11:35 CONCLUSION: 1. Extensive atelectasis in both lower lobes. 2. The Stone catheter needs to be deflated and advanced into the bladder. The catheter is at the level of the prosthetic urethra. 3. No findings to indicate a bowel obstruction are seen. No free air free fluid is identified. Chest CT 04/27/18 11:35 CONCLUSION: 1. Consolidation both posterior lungs with air bronchograms. This could represent bilateral pneumonia or aspiration. Cervical Spine CT 04/27/18 11:36 CONCLUSION: 1. Negative trauma study. Lumbar Spine CT 04/27/18 11:59 CONCLUSION: 1. Negative for acute process 2. There is no evidence for vertebral compression. Head MRI 04/29/18 07:05 CONCLUSION: 1. Negative MRI of the brain. 2. Inflammatory process cannot be entirely excluded. 3. There are no infarcts identified. Abdomen X-Ray 05/11/18 00:01 CONCLUSION: Paucity of bowel gas. Otherwise within normal limits. Chest X-Ray 05/11/18 06:00 CONCLUSION: Left greater than right pulmonary parenchymal opacity with increase in diffuse left lung opacity. Objective Remarks: GENERAL: Patient is 22 yo intubated . SKIN: Warm and dry. No rash HEAD: Normocephalic. EYES: No scleral icterus. No injection or drainage. NECK: Supple, trachea midline. No JVD or lymphadenopathy. CARDIOVASCULAR: tachy, rr. without murmurs, gallops, or rubs. RESPIRATORY: Breath sounds equal bilaterally. No accessory muscle use. GASTROINTESTINAL: Abdomen soft, non-tender, nondistended. MUSCULOSKELETAL: No significant peripheral edema. Neuro: intubated, currently on Nimbex drip. Assessment and Plan - Assessment and Plan Plan: NEURO/PSYCH: Acute metabolic encephalopathy Suspected PCP overdose Suspected ethylene glycol overdose Suicide attempt -PCP was found near the patient ,continue supportive care -On Diprivan at 50 nithya grams per kilogram per minute. Midazolam 10 mg an hour and Fentanyl 250 mcg an hour infusion for sedation and vent synchrony -monitor neuro status. On Neuromuscular blockade( Nimbex)monitor train of 4 -Urine drug screen positive for benzos only -Psychiatric consult after neurological recovery previously on Wellbutrin. -CT of the head negative. MRI of brain negative. Cannot rule out inflammatory process - EEG 04/30 and follow-up EEG 04/28 with no epileptic activity -Ammonia level: 21 -Neuro is following- Dr. Landon RESP: Acute respiratory failure Bibasilar aspiration pneumonitis Severe ARDS Tobacco abuse -Continue with vent support keep sats >92% -On PC/AC RR16, IP:1.28, IT:1.1, PEEP:10 and FIO2 55% -Ventilator bundle. -Bronchodilators (ipratropium/albuterol, Q4), Decrease Solumederol 40mg Q8 - Continue with epoprostenol nebs ( 40,000 ng/ml) CXR today- Left greater than right pulmonary parenchymal opacity s/p bronch 05/02 thick secretions suctioned to clear. No evidence of EBL or bleeding. On rotoprone bed for proning to improve ventilation/perfusion matching. Nicotine patch 21 mg daily CV: Essential hypertension -Monitor HR and BP keep MAP>65mmHg -Lactic acid 1.7 -On Lopressor 50mg TID -Echo 04/28: EF 60-65%, PASP 36mmHg GI: Elevated ALT Hypoalbuminemia - IV famotidine -On PPN Docusate serum/senna 1 tablet twice daily for bowel regimen. Lactulose 30 cc twice daily and MiraLAX 17 g twice daily. free water 250ml Q12 Renal/FEN/: -Monitor renal function, I/O's, electrolytes replacement as needed -CT abd/pelvis: No findings to indicate a bowel obstruction are seen. No free air free fluid is identified. Decrease bumetanide 0.25mg/hr- good response in UOP. ID: MSSA/group A beta strep pneumonia Gram-negative rhianna sputum Abx per ID- On Cefazolin, meropenem, Tobramycin- monitor for signs of infections ( Fever, WBC) Panculture today ( Blood, sputum, UA) 05/07 05/07 Sputm cx: Kleb pneumonia, Enterobacter 04/27 Sputum: Staph aureus/MSSA and beta strep not group A. 05/03 BC: GPC : Coag neg staph 05/02 bronch cx: Staph Aureus ID is following HEME: Normocytic anemia Leukocytosis -Monitor CBC, coags ENDO/FEN: Hyperglycemia -Electrolyte replacement per protocol -Sliding scale insulin PROPH: -Bilateral lower extremity SCDs. Subcu heparin/famotidine LINES: -Utilize peripheral IVs, [facility] central line placed in ED 04/27-d/janina Patient is high risk for a routine line change giving his severe ARDS and is on Rotoprone bed with high PEEP:10 and FIO2: now 80%. Suspicious for line infection is low at this time. He is at high risk for complications. PICC line was cleared by ID. Discussed with Dr. Wiley. PICC line inserted 05/08 Discussed with patient's father and mother and updated him on his condition CC time 35 min
[2018-05-11] MEDS: SODIUM CHLOR NEB SCH ×3 (08:07→21:40)
[2018-05-11] MEDS: EPOPROSTENOL NEB SCH ×3 (08:07→21:40)
[2018-05-11] MEDS: Pantoprazole Inj 40 MG Vial IV.PUSH SCH (08:26)
[2018-05-11] MEDS: Heparin Central Flush 100 UNIT/ML 5 ML Vial IV.FLUSH SCH (08:29)
[2018-05-11] MEDS: Polyethylene Glycol 3350 17 GM Packet PO SCH ×2 (08:30→20:07)
[2018-05-11] MEDS: Senna/Docusate Sodium 8.6/50 MG Tablet PO SCH ×2 (08:31→20:07)
[2018-05-11 08:33] LABS: Lymphocytes 7 % (9-44); Metamyelocytes 2 % (0-1); Monocytes 2 % (0-8); Myelocytes 1 % (0-0); Platelet Estimate Normal (Normal); Platelet Morphology Normal (Normal)
[2018-05-11] MEDS: Metoprolol Tartrate 50 MG Tablet PO SCH ×3 (10:06→17:17)
[2018-05-11 11:52] LABS: ABG PCO2 38 mmHg (38-42); ABG PO2 58 mmHG (61-120)
--- NOTE | 2018-05-11 14:26 | P.PNID ---
Subjective Remarks: not doing too good On 100% FiO2 fever 37.7 diarrhea grew andrews S Kleb, Enterobacter Antibiotics: Ancef IV Meropenem IV Tobra IV Lines: Line sites ok Past Medical History: reviewed. Allergies/Adverse Reactions: Allergies shellfish derived Allergy (Verified 04/29/18 13:12) Anaphylaxis No Known Allergies Allergy (Uncoded 04/29/18 13:12) Objective Vital Signs 05/10/18 15:00 05/10/18 15:10 05/10/18 15:11 Temperature 99.5 F Pulse Rate 104 H 103 H Respiratory Rate 16 16 Pulse Oximetry 96 96 05/10/18 16:00 05/10/18 17:00 05/10/18 18:00 Temperature 99.1 F 98.6 F 99.9 F H Pulse Rate 99 H 101 H Respiratory Rate Pulse Oximetry 95 95 97 05/10/18 19:00 05/10/18 20:00 05/10/18 21:00 Temperature 99.5 F 99.5 F 99.7 F H Pulse Rate 103 H 99 H 95 H Respiratory Rate 16 16 Pulse Oximetry 96 94 L 95 05/10/18 21:25 05/10/18 22:00 05/10/18 23:00 Temperature 99.0 F 99.1 F Pulse Rate 94 H 97 H 95 H Respiratory Rate 16 6 L Pulse Oximetry 94 L 91 L 92 L 05/10/18 23:41 05/11/18 00:00 05/11/18 01:00 Temperature 98.1 F 98.8 F Pulse Rate 95 H 93 H 93 H Respiratory Rate 16 Pulse Oximetry 91 L 88 L 90 L 05/11/18 02:00 05/11/18 03:00 05/11/18 04:00 Temperature 99.1 F 98.8 F 98.2 F Pulse Rate 96 H 124 H 131 H Respiratory Rate Pulse Oximetry 91 L 91 L 92 L 05/11/18 04:27 05/11/18 05:00 05/11/18 06:00 Temperature 98.6 F 99.5 F Pulse Rate 121 H 111 H 111 H Respiratory Rate 16 Pulse Oximetry 90 L 89 L 89 L 05/11/18 07:49 05/11/18 08:00 05/11/18 12:13 Temperature Pulse Rate 102 H 102 H 121 H Respiratory Rate 16 17 Pulse Oximetry 92 L 94 L Intake & Output 05/10/18 05/11/18 05/11/18 18:59 06:59 18:59 Intake Total 4321 / 4321 4300 / 4300 2550 / 2550 Output Total 6300 / 6300 7275 / 7275 Balance -1978 / -1978 -2975 / -2975 2550 / 2550 Weight 159.3 kg Intake: IV 3850 / 3850 4200 / 4200 2550 / 2550 Bumex Inj 25 mg In 100 ml @ 0.5 50 / 50 MG/HR 2 mls/hr IV.CONT .Q24H [facility] Rx#:[id number] Nimbex Inj 200 MG In NS Inj 480 2500 / 2500 2500 / 2500 1500 / 1500 ML @ 1 MCG/KG/MIN 27.6 mls/hr IV.CONT TITRATE PRN Rx#: [id number] Versed Inj 50 mg In 50 ml @ 2 150 / 150 150 / 150 50 / 50 MG/HR 2 mls/hr IV.CONT TITRATE PRN Rx#:[id number] Diprivan 1000 mg/100 ml Inj 1, 600 / 600 600 / 600 400 / 400 000 mg In 100 ml @ 5 MCG/KG/MIN 4.77 mls/hr IV.CONT TITRATE PRN Rx#:[id number] Merrem Inj 1,000 MG In NS Inj 100 / 100 200 / 200 100 / 100 100 ML @ 200 mls/hr IV.SIG Q8H [facility] Rx#:[id number] KCl 40 mEq Premix Inj 40 meq In 100 / 100 100 ml @ 25 mls/hr IV.SIG UNSCH PRN Rx#:[id number] Nebcin Inj 840 MG In NS Inj 100 100 / 100 ML @ 100 mls/hr IV.SIG Q24H [facility] Rx#:[id number] Ancef 2 GM Premix Inj 2 gm In 50 / 50 100 / 100 50 / 50 50 ml @ 200 mls/hr IV.SIG Q8H [facility] Rx#:[id number] fentaNYL 10 mcg/mL Premix Drip 250 / 250 500 / 500 250 / 250 2,500 mcg In 250 ml @ 50 MCG/HR 5 mls/hr IV.SIG TITRATE PRN Rx #:[id number] Flolan (30,000 ng/mL) Neb 90 ML 200 / 200 100 / 100 In NS Inj 10 ML @ 5 mls/hr NEB Q8H [facility] Rx#:[id number] Tube Feeding 211 / 211 Tube Irrigant 60 / 60 100 / 100 Water Bolus Amount 200 / 200 Output: Stool 500 / 500 50 / 50 Urine Amount (Catheter) 5500 / 5500 7125 / 7125 Indwelling Urethral Catheter 5500 / 5500 7125 / 7125 Gastric Drainage 300 / 300 100 / 100 Orogastric Tube 300 / 300 100 / 100 Other: Date of Last Bowel Movement 05/10/18 05/07/18 11:35 Blood - Peripheral Aerobic Blood Culture - Preliminary No growth in 4 days 05/07/18 11:35 Blood - Peripheral Anaerobic Blood Culture - Preliminary No growth in 4 days 05/07/18 10:00 Blood - Peripheral Aerobic Blood Culture - Preliminary No growth in 4 days 05/07/18 10:00 Blood - Peripheral Anaerobic Blood Culture - Preliminary No growth in 4 days 05/07/18 10:00 Sputum - Endotracheal Gram Stain - Final 05/07/18 10:00 Sputum - Endotracheal Sputum Culture - Final Enterobacter cloacae Klebsiella pneumoniae 05/03/18 10:10 Blood - Peripheral Aerobic Blood Culture - Final Staphylococcus epidermidis 05/03/18 10:10 Blood - Peripheral Anaerobic Blood Culture - Final No growth in 5 days 05/03/18 11:20 Blood - Peripheral Aerobic Blood Culture - Final No growth in 5 days 05/03/18 11:20 Blood - Peripheral Anaerobic Blood Culture - Final No growth in 5 days Lab - Hematology Results 05/10/18 05/11/18 04:40 03:56 WBC 13.2 H 14.1 H RBC 4.25 L 4.04 L Hgb 12.6 L 11.8 L Hct 37.5 L 35.9 L MCV 88.1 88.8 MCH 29.7 29.3 MCHC 33.7 33.0 RDW 15.5 15.6 Plt Count 411 401 MPV 7.8 7.6 Prelim Diff (Auto) Slide review pending Slide review pending Neut % (Auto) 78.0 H 82.8 H Lymph % (Auto) 11.5 10.7 [place] % (Auto) 9.9 H 6.1 Eos % (Auto) 0.3 0.1 Baso % (Auto) 0.3 0.3 Neut # (Auto) 10.3 H 11.7 H Lymph # (Auto) 1.5 1.5 [place] # (Auto) 1.3 H 0.9 Eos # (Auto) 0.0 0.0 Baso # (Auto) 0.0 0.0 WBC Differential Manual diff final Manual diff final Seg Neuts % (Manual) 72 H 83 H Band Neuts % (Manual) 5 5 Lymphocytes % (Manual) 12 7 L Monocytes % (Manual) 10 H 2 Metamyelocytes % (Man) 2 H Myelocytes % (Man) 1 H 1 H Abs Neuts (Manual) 10.3 H 12.8 H Differential Comment . . Platelet Estimate Normal Normal Platelet Morphology Normal Normal RBC Morphology Normal Lab - Chemistry Results 05/09/18 05/09/18 05/10/18 17:51 23:29 04:40 Sodium 137 Potassium 3.7 Chloride 97 L Carbon Dioxide 30.5 Anion Gap 10 BUN 21 H Creatinine 0.73 Estimated GFR Greater than 89 POC Glucose 136 H 136 H Random Glucose 152 H Lactic Acid Calcium 8.0 L Phosphorus 4.5 Magnesium 2.2 Total Bilirubin 0.4 AST 21 ALT 60 H Alkaline Phosphatase 77 Ammonia Total Creatine Kinase CK-MB (CK-2) CK-MB (CK-2) % Total Protein 7.0 Albumin 2.6 L Amylase Lipase 05/10/18 05/10/18 05/10/18 05:59 11:58 15:33 Sodium Potassium Chloride Carbon Dioxide Anion Gap BUN Creatinine Estimated GFR POC Glucose 170 H 158 H 137 H Random Glucose Lactic Acid Calcium Phosphorus Magnesium Total Bilirubin AST ALT Alkaline Phosphatase Ammonia Total Creatine Kinase CK-MB (CK-2) CK-MB (CK-2) % Total Protein Albumin Amylase Lipase 05/10/18 05/10/18 05/10/18 17:37 19:50 23:57 Sodium 140 Potassium 3.6 Chloride 102 Carbon Dioxide 27.9 Anion Gap 10 BUN 25 H Creatinine 0.83 Estimated GFR Greater than 89 POC Glucose 147 H 107 Random Glucose 131 H Lactic Acid Calcium 8.0 L Phosphorus Magnesium Total Bilirubin AST ALT Alkaline Phosphatase Ammonia Total Creatine Kinase CK-MB (CK-2) CK-MB (CK-2) % Total Protein Albumin Amylase Lipase 05/11/18 05/11/18 05/11/18 03:56 03:56 03:56 Sodium 138 Potassium 3.5 Chloride 100 Carbon Dioxide 28.5 Anion Gap 10 BUN 25 H Creatinine 0.81 Estimated GFR Greater than 89 POC Glucose Random Glucose 160 H Lactic Acid 1.3 Calcium 8.2 L Phosphorus 4.4 Magnesium 2.4 Total Bilirubin 0.3 AST 30 ALT 52 Alkaline Phosphatase 69 Ammonia Less than 10 L Total Creatine Kinase 995 H CK-MB (CK-2) 4.0 H CK-MB (CK-2) % 0.4 Total Protein 6.8 Albumin 2.7 L Amylase 77 Lipase 549 H 05/11/18 05/11/18 06:04 12:39 Sodium Potassium Chloride Carbon Dioxide Anion Gap BUN Creatinine Estimated GFR POC Glucose 130 H 141 H Random Glucose Lactic Acid Calcium Phosphorus Magnesium Total Bilirubin AST ALT Alkaline Phosphatase Ammonia Total Creatine Kinase CK-MB (CK-2) CK-MB (CK-2) % Total Protein Albumin Amylase Lipase Imaging: ITS Impressions Head CT 04/27/18 11:31 CONCLUSION: 1. Negative CT Head non contrast. . Abdomen/Pelvis CT 04/27/18 11:35 CONCLUSION: 1. Extensive atelectasis in both lower lobes. 2. The Stone catheter needs to be deflated and advanced into the bladder. The catheter is at the level of the prosthetic urethra. 3. No findings to indicate a bowel obstruction are seen. No free air free fluid is identified. Chest CT 04/27/18 11:35 CONCLUSION: 1. Consolidation both posterior lungs with air bronchograms. This could represent bilateral pneumonia or aspiration. Cervical Spine CT 04/27/18 11:36 CONCLUSION: 1. Negative trauma study. Lumbar Spine CT 04/27/18 11:59 CONCLUSION: 1. Negative for acute process 2. There is no evidence for vertebral compression. Head MRI 04/29/18 07:05 CONCLUSION: 1. Negative MRI of the brain. 2. Inflammatory process cannot be entirely excluded. 3. There are no infarcts identified. Abdomen X-Ray 05/11/18 00:01 CONCLUSION: Paucity of bowel gas. Otherwise within normal limits. Chest X-Ray 05/11/18 06:00 CONCLUSION: Left greater than right pulmonary parenchymal opacity with increase in diffuse left lung opacity. Physical Exam: examined in supine on rotaprone bed. GENERAL: NAD sedated and paralyzed int'd and on vent SKIN: Warm and dry. no rash. HEAD: Atraumatic. Normocephalic. EYES: Face mildly edematous ENT: orally intubated NECK: Trachea midline. No JVD. CARDIOVASCULAR: RRR no murmurs well perfused periphery RESPIRATORY: clear GASTROINTESTINAL: soft abdomen MUSCULOSKELETAL: Extremities without clubbing, cyanosis, + 2 edema. NEUROLOGICAL: sedated and paralyzed PSYCHIATRIC: unable to assess Assessment and Plan - Plan Sepsis ongoing possible new. PNA, probably aspiration Acute VDRF on rotaprone bed. MSSA pneumonia. GNR pneumonia: Kleb, Enterobacter Morbid obesity with likely obesity- hypoventilation sd Coag neg staph bacteremia, low grade doubt clin significance Recs: dc Meropenem, tobramycin IV. change abx to Ceftriaxone + oxacillin Follow cultures Follow clinical course. sanket fsmily
[2018-05-11] MEDS ORDERED: Bumetanide Inj 25 MG/100 ML BAG IV.CONT SCH (16:00)
--- NOTE | 2018-05-11 17:23 | P.DIET ---
Nutritional Evaluation Type of nutrition evaluation: follow-up Nutrition consult regarding: TPN/PPN Objective - Diagnosis suicidal attempt, aspiration pneumonia - Objective % IBW: 192 (IBW = 202lb) Body Weight Used for Calculations: IBW Energy Needs - Lower Range (kCal/kg): 28 Energy Needs - Upper Range (kCal/kg): 32 Lower Limit kCal/kg (kCals): 2,570 Upper Limit kCal/kg (kCals): 2,938 Lower Limit Protein Factor (Grams per Kg): 1.2 Upper Limit Protein Factor (Grams per Kg): 1.5 Lower Protein Needs (Protein): 110 Upper Protein Needs (Protein): 138 Fluid Factor (ml/kg): 30 Estimated Fluid Needs (ml): 2,754 Dietitian Reviewed in Medical Record: Curent medications, Intake & Output, Labs , Medical history, Tube feeding Diet Order: NPO, TF Speech Therapy Recommendations: No Wound Care Note: midline lower back: laceration sacrum: pressure injury L shoulder: pressure injury Objective Comments: PMH: affective bipolar disorder labs: BUN 25, POC glucose 130, Ca+ 8.2 Assessment Assessment: Pts TF on hold since 05/10, previously running at 45mL/hr before pt aspirated, per MD note pt was started on PPN. Pt receiving Clinimix E 4.25/25 @ 83mL/hr per MD. RD agree with PPN Clinimix E 4.24/25 @ 83mL/hr to provide 85g of protein and 2040 total kcal. Additional kcal (1.1kcal/mL provided by propofol when running. Labs reviewed, dietitian following. Additional recs r/t on medical course. Recommendations: 1. RD agree with PPN Clinimix E 4.24/25 @ 83mL/hr to provide 85g of protein and 2040 total kcal 2. Dietitian following 3. Additional recs r/t on medical course 4. Additional kcal (1.1kcal/mL provided by propofol when running Dietitian to Monitor: Lab values, Electrolytes, Intake & Output, TPN/PPN tolerance, Weight change, Medical course
[2018-05-11] MEDS ORDERED: Metoprolol Inj 5 MG/5 ML Vial ONE (18:10)
[2018-05-11] MEDS ORDERED: Metoprolol Inj 5 MG/5 ML Vial IV.PUSH ONE (18:30)
[2018-05-11] MEDS: Multivitamin Inj 10 ML, Folic Acid Inj 1 MG in AA 4.25 %/D5W - Electrolytes 2,000 ML IV.SIG SCH (20:06)
[2018-05-12] MEDS: Propofol 1000 mg/100 ml Inj 1,000 MG/100 ML BOTTLE IV.CONT PRN ×12 (00:24→22:55)
[2018-05-12] MEDS: Midazolam 50 MG/50 ML Inj 50 MG/50 ML BAG IV.CONT PRN ×5 (00:25→23:31)
[2018-05-12] MEDS: SODIUM CHLOR 0.9% IV.CONT PRN ×11 (01:33→23:31)
[2018-05-12] MEDS: CISATRACURIUM IV.CONT PRN ×11 (01:33→23:31)
[2018-05-12] MEDS: SODIUM CHLOR NEB SCH ×3 (01:39→17:30)
[2018-05-12] MEDS: EPOPROSTENOL NEB SCH ×3 (01:39→17:30)
[2018-05-12] MEDS: Heparin - SQ 10,000 UNITS/ML Vial SQ SCH (03:09)
[2018-05-12] MEDS: Sodium Chlor 0.9% Inj 500 ML IV.SIG SCH ×2 (04:35→19:14)
[2018-05-12] MEDS: MethylPREDNISolone Sod Succinate Inj 40 MG/ML Vial IV.PUSH SCH ×3 (05:12→21:00)
[2018-05-12] MEDS: Insulin NovoLOG Aspart Correctional Sugar Inj SQ SCH ×4 (05:12→23:47)
[2018-05-12] MEDS: fentaNYL 10 mcg/mL Premix Drip 2,500 MCG/250 ML BAG IV.SIG PRN ×3 (05:14→20:29)
[2018-05-12 05:48] LABS: Baso # (Auto) 0.1 th/mm3 (0.0-0.2); Baso % (Auto) 0.3 % (0.0-2.0); Eos % (Auto) 0.1 % (0.0-4.0); Hematocrit 32.6 % (39.0-51.0); Hemoglobin 11.4 gm/dL (13.0-17.0); Lymph # (Auto) 3.4 th/mm3 (1.0-4.8); Lymph % (Auto) 18.4 % (9.0-44.0); Mean Corpuscular HGB Conc 34.9 % (32.0-36.0); Mean Corpuscular Hemoglobin 30.1 pg (27.0-34.0); Mean Corpuscular Volume 86.2 fL (80.0-100.0); Mean Platelet Volume 7.8 fL (7.0-11.0); Mono # (Auto) 1.7 th/mm3 (0.0-0.9); Mono % (Auto) 9.3 % (0.0-8.0); Neut # (Auto) 13.1 th/mm3 (1.8-7.7); Neut % (Auto) 71.9 % (16.0-70.0); Platelet Count 388 th/mm3 (150-450); Red Blood Count 3.79 mil/mm3 (4.50-5.90); Red Cell Distribution Width 15.6 % (11.6-17.2); White Blood Count 18.2 th/mm3 (4.0-11.0)
[2018-05-12 06:09] LABS: Albumin 2.6 g/dL (3.4-5.0); Anion Gap 12 meq/L (5-15); Aspartate Aminotransferase 28 U/L (15-39); Blood Urea Nitrogen 24 mg/dL (7-18); Calcium 8.2 mg/dL (8.5-10.1); Carbon Dioxide 22.5 meq/L (21.0-32.0); Chloride 103 meq/L (98-107); Glomerular Filtration Rate Greater Than 89 mL/min (>89); Glucose,Random 99 mg/dL (74-106); Magnesium 2.3 mg/dL (1.5-2.5); Potassium 3.2 meq/L (3.5-5.1); Sodium 137 meq/L (136-145)
[2018-05-12] MEDS: Potassium Chlor 40 mEq Premix 40 MEQ/100 ML PIGGYBACK IV.SIG PRN ×2 (06:15→10:45)
[2018-05-12 06:20] LABS: Alanine Aminotransferase 47 U/L (9-52); Alkaline Phosphatase 65 U/L (45-117); Phosphorus 3.1 mg/dL (2.5-4.9); Total Protein 6.6 g/dL (6.4-8.2)
--- NOTE | 2018-05-12 07:30 | P.PNCC ---
Subjective Subjective Remarks/Hospital Course: Patient is approximately 22 years old male obese, was found on the floor by a family member, downtime is unknown. EMS was called, patient was given Narcan with no response, he was intubated on the scene, apparently GCS 3. Found bag of PCP next to the patient. Patient has history of psychiatric disorder ? bipolar disorder and I am told he has attempted suicide in the past. There is also mention about suspicion of ethylene glycol ingestion, but his serum osmolality is 307 his osmolar gap is only 13. Bicarb is 26, ethylene glycol seems unlikely. Ethanol was negative urine drug screen only positive for benzo. I evaluated the patient in the ICU at the [facility]. Patient had a CT of the head which was negative. Rest of the workup unremarkable except for bibasilar atelectasis/aspiration pneumonia. Patient's white count is elevated at 17.1, glucose is 232 lactic acid was 2.8. He received multiple fluid boluses. At this time he is not on any sedation but remains unresponsive no response to deep pain 04/28 Patient remains intubated off sedation unresponsive. Afebrile. 04/29: MRI of the brain revealed no acute intracranial findings. EEG to be performed tomorrow. More arousable and moves all 4 extremities but not following commands. Placed on dexamethasone E drip. 2 feeds will be restarted 04/30: T-max 101.4. Currently afebrile. No bowel movement since admission. Arousable and follows simple commands late last night but currently on sedation for agitation. Increased FiO2 noted. Will attempt to gently diurese and continue antibiotics for pansensitive staph aureus/group a beta strep sputum 05/01 Patient is sedated with Fentanyl, Diprivan and intubated. T:101.1 at 5am. Placed on APRV overnight. 05/02 Patient is sedated with Diprivan and Fentanyl drips. Tmax 101.3, on PC/AC with PEEP:12, FIO2 80%, IP:30 05/03 Patient is heavily sedated with Diprivan, Fentanyl and Versed . On PC/AC with PEEP: 14 and FIO2 100$ sats 92%, CXR yesterday showed diffuse b/l pulm infiltrates, started on Flolan nebs. Had Tmax 102.6 last night. 05/04 Patient was placed on rotoprone bed yesterday sedated with Diprivan, Versed and Fentanyl infusion and on neuromuscular blockade( Nimbex) On PC/AC His FIO2 requirements is better now on FIO2:50% from 100% with PEEP:14. T:102.6 05/05 Patient remains intubated and sedated on Bumex drio0.5mg/hr, T:99.7 at 3am. On PC/AC with PEEP:1 and FIO2 60%- sats 95%. 05/06 Patient remains sedated and intubated on rotoprone bed with improvements in his oxygenation. Now on PC/AC with PEEP:10, FIO2 40%. Afebrile. On Bumex drip 0.5mg/hr. 05/07 Patient remains on rotoprone bed sedated and on Nimbex drip. He is also on Bumex drip 0.5mg/hr with good urine output . 05/08 Patient remains sedated and intubated. On Flolan, and Bumex drip. Afebrile. 05/09 Patient desat overnight now on PC/AC with PEEP:10 and FIO2 100% sats 96%. Had T: 100.4 at midnight. Sputum cx 05/07 GNR. Remains sedated on Flolan and Bumex drip. SUBJECTIVE: 05/10: Resting in bed. Remains on PC/AC rate increased to 16. FiO2 80%. Low- grade fevers noted. Remains on epoprostenol and bumetanide drips. Hypertension noted. Aspirated this a.m. and so discontinued tube feeding. We will start PPN today. 05/11 Patient remains on rotoprone bed, sedated and intubated. Afebrile. On PC/ AC with PEEP;10 and FIO2 55%.On Flolan and Bumex drip 0.5mg/hr 05/12 Remains sedated, intubated and on Rotoprone bed. PC/AC with PEEP: 12 and FIO2 70% sats 96%. T:100.4 last night. On Flolan and Bumex drip. Objective Vital Signs / I&O: Vital Signs 05/11/18 07:49 05/11/18 08:00 05/11/18 12:00 Temperature 100.0 F H Pulse Rate 102 H 102 H 116 H Respiratory Rate 16 Pulse Oximetry 92 L 93 L 05/11/18 12:13 05/11/18 13:00 05/11/18 14:00 Temperature 100.0 F H 98.4 F Pulse Rate 121 H 115 H 105 H Respiratory Rate 17 Pulse Oximetry 94 L 94 L 94 L 05/11/18 15:00 05/11/18 16:00 05/11/18 17:00 Temperature 100.8 F H 100.2 F H 100.8 F H Pulse Rate 103 H 128 H 124 H Respiratory Rate 16 Pulse Oximetry 93 L 98 98 05/11/18 18:00 05/11/18 20:00 05/11/18 21:31 Temperature 100.4 F H 100.4 F H Pulse Rate 119 H 112 H 113 H Respiratory Rate 16 16 Pulse Oximetry 97 92 L 94 L 05/11/18 23:57 05/12/18 00:00 05/12/18 04:00 Temperature 99.7 F H 99.0 F Pulse Rate 133 H 123 H Respiratory Rate 16 16 16 Pulse Oximetry 94 L 95 95 05/12/18 04:10 Temperature Pulse Rate 109 H Respiratory Rate 16 Pulse Oximetry 96 Intake & Output 05/11/18 05/12/18 05/12/18 18:59 06:59 18:59 Intake Total 4000 / 4000 6810.04 / 6810.04 Output Total 3500 / 3500 4800 / 4800 Balance 500 / 500 Weight 162 kg Intake: IV 4000 / 4000 6560.04 / 6560.04 Nimbex Inj 200 MG In NS Inj 480 2500 / 2500 3000 / 3000 ML @ 1 MCG/KG/MIN 27.6 mls/hr IV.CONT TITRATE PRN Rx#: [id number] Versed Inj 50 mg In 50 ml @ 2 100 / 100 50 / 50 MG/HR 2 mls/hr IV.CONT TITRATE PRN Rx#:[id number] Diprivan 1000 mg/100 ml Inj 1, 600 / 600 600 / 600 000 mg In 100 ml @ 5 MCG/KG/MIN 4.77 mls/hr IV.CONT TITRATE PRN Rx#:[id number] Merrem Inj 1,000 MG In NS Inj 100 / 100 100 ML @ 200 mls/hr IV.SIG Q8H [facility] Rx#:[id number] MVI-12 Inj 10 ML Folvite Inj 0. 2010.2009.04 2 MG In Clinimix E 4.25%/D5W Inj 2,000 ML @ 83 mls/hr IV.SIG Q24H [facility] Rx#:[id number] Prostaphlin Inj 2 GM In NS Inj 100 / 100 300 / 300 100 ML @ 200 mls/hr IV.SIG Q4H [facility] Rx#:[id number] KCl 40 mEq Premix Inj 40 meq In 100 / 100 100 ml @ 25 mls/hr IV.SIG UNSCH PRN Rx#:[id number] Ancef 2 GM Premix Inj 2 gm In 50 / 50 50 ml @ 200 mls/hr IV.SIG Q8H [facility] Rx#:[id number] Rocephin Inj 2,000 MG In NS Inj 100 / 100 100 ML @ 200 mls/hr IV.SIG Q24H [facility] Rx#:[id number] fentaNYL 10 mcg/mL Premix Drip 250 / 250 500 / 500 2,500 mcg In 250 ml @ 50 MCG/HR 5 mls/hr IV.SIG TITRATE PRN Rx #:[id number] Flolan (30,000 ng/mL) Neb 90 ML 100 / 100 100 / 100 In NS Inj 10 ML @ 5 mls/hr NEB Q8H [facility] Rx#:[id number] Tube Feeding 0 / 0 Water Bolus Amount 250 / 250 Output: Stool 0 / 0 800 / 800 Urine Amount (Catheter) 3400 / 3400 3800 / 3800 Indwelling Urethral Catheter 3400 / 3400 3800 / 3800 Gastric Drainage 100 / 100 200 / 200 Orogastric Tube 100 / 100 200 / 200 Other: Date of Last Bowel Movement 05/12/18 Result Diagrams: 05/12/18 05:05 05/12/18 05:05 Other Results: Laboratory Results - last 12 hr 05/11/18 05/12/18 05/12/18 23:42 05:05 05:05 WBC 18.2 H RBC 3.79 L Hgb 11.4 L Hct 32.6 L MCV 86.2 MCH 30.1 MCHC 34.9 RDW 15.6 Plt Count 388 MPV 7.8 Neut % (Auto) 71.9 H Lymph % (Auto) 18.4 [place] % (Auto) 9.3 H Eos % (Auto) 0.1 Baso % (Auto) 0.3 Neut # (Auto) 13.1 H Lymph # (Auto) 3.4 [place] # (Auto) 1.7 H Eos # (Auto) 0.0 Baso # (Auto) 0.1 WBC Differential . Differential Comment Auto diff final Sodium 137 Potassium 3.2 L Chloride 103 Carbon Dioxide 22.5 Anion Gap 12 BUN 24 H Creatinine 0.62 Estimated GFR Greater than 89 POC Glucose 121 H Random Glucose 99 Calcium 8.2 L Phosphorus 3.1 D Magnesium 2.3 Total Bilirubin 0.5 AST 28 ALT 47 Alkaline Phosphatase 65 Total Protein 6.6 Albumin 2.6 L 05/12/18 05:07 WBC RBC Hgb Hct MCV MCH MCHC RDW Plt Count MPV Neut % (Auto) Lymph % (Auto) [place] % (Auto) Eos % (Auto) Baso % (Auto) Neut # (Auto) Lymph # (Auto) [place] # (Auto) Eos # (Auto) Baso # (Auto) WBC Differential Differential Comment Sodium Potassium Chloride Carbon Dioxide Anion Gap BUN Creatinine Estimated GFR POC Glucose 108 Random Glucose Calcium Phosphorus Magnesium Total Bilirubin AST ALT Alkaline Phosphatase Total Protein Albumin Imaging: Head CT 04/27/18 11:31 CONCLUSION: 1. Negative CT Head non contrast. . Abdomen/Pelvis CT 04/27/18 11:35 CONCLUSION: 1. Extensive atelectasis in both lower lobes. 2. The Stone catheter needs to be deflated and advanced into the bladder. The catheter is at the level of the prosthetic urethra. 3. No findings to indicate a bowel obstruction are seen. No free air free fluid is identified. Chest CT 04/27/18 11:35 CONCLUSION: 1. Consolidation both posterior lungs with air bronchograms. This could represent bilateral pneumonia or aspiration. Cervical Spine CT 04/27/18 11:36 CONCLUSION: 1. Negative trauma study. Lumbar Spine CT 04/27/18 11:59 CONCLUSION: 1. Negative for acute process 2. There is no evidence for vertebral compression. Head MRI 04/29/18 07:05 CONCLUSION: 1. Negative MRI of the brain. 2. Inflammatory process cannot be entirely excluded. 3. There are no infarcts identified. Abdomen X-Ray 05/11/18 00:01 CONCLUSION: Paucity of bowel gas. Otherwise within normal limits. Chest X-Ray 05/11/18 06:00 CONCLUSION: Left greater than right pulmonary parenchymal opacity with increase in diffuse left lung opacity. Objective Remarks: GENERAL: Patient is 22 yo intubated . SKIN: Warm and dry. No rash HEAD: Normocephalic. EYES: No scleral icterus. No injection or drainage. NECK: Supple, trachea midline. No JVD or lymphadenopathy. CARDIOVASCULAR: tachy, rr. without murmurs, gallops, or rubs. RESPIRATORY: Breath sounds equal bilaterally. No accessory muscle use. GASTROINTESTINAL: Abdomen soft, non-tender, nondistended. MUSCULOSKELETAL: No significant peripheral edema. Neuro: intubated, currently on Nimbex drip. Assessment and Plan - Assessment and Plan Plan: NEURO/PSYCH: Acute metabolic encephalopathy Suspected PCP overdose Suspected ethylene glycol overdose Suicide attempt -PCP was found near the patient ,continue supportive care -On Diprivan at 50 nithya grams per kilogram per minute. Midazolam 10 mg an hour and Fentanyl 300 mcg an hour infusion for sedation and vent synchrony -monitor neuro status. On Neuromuscular blockade( Nimbex)monitor train of 4 -Urine drug screen positive for benzos only -Psychiatric consult after neurological recovery previously on Wellbutrin. -CT of the head negative. MRI of brain negative. Cannot rule out inflammatory process - EEG 04/30 and follow-up EEG 04/28 with no epileptic activity -Ammonia level: 21 -Neuro is following- Dr. Landon RESP: Acute respiratory failure Bibasilar aspiration pneumonitis Severe ARDS Tobacco abuse -Continue with vent support keep sats >92% -On PC/AC RR16, IP:1.28, IT:1.1, PEEP:12 and FIO2 70% Decrease FIO2 as kit -Ventilator bundle. -Bronchodilators (ipratropium/albuterol, Q4), Decrease Solumederol 40mg Q8 - Continue with epoprostenol nebs ( 40,000 ng/ml) CXR today: Atelectatic changes most notably in the right upper lobe. Considerable improvement in aeration of the parenchyma compared to prior exam. CXR 05/11- Left greater than right pulmonary parenchymal opacity s/p bronch 05/02 thick secretions suctioned to clear. No evidence of EBL or bleeding. On rotoprone bed for proning to improve ventilation/perfusion matching. Nicotine patch 21 mg daily CV: Essential hypertension -Monitor HR and BP keep MAP>65mmHg -Lactic acid 1.7 -On Lopressor 50mg TID -Echo 04/28: EF 60-65%, PASP 36mmHg GI: Elevated ALT Hypoalbuminemia - IV famotidine -On PPN Docusate serum/senna 1 tablet twice daily for bowel regimen. Lactulose 30 cc twice daily and MiraLAX 17 g twice daily. free water 250ml Q12 Renal/FEN/: -Monitor renal function, I/O's, electrolytes replacement as needed -CT abd/pelvis: No findings to indicate a bowel obstruction are seen. No free air free fluid is identified. d/c Bumex drip. Will need K replacement today ID: MSSA/group A beta strep pneumonia Gram-negative rhianna sputum Abx per ID- On Rocephin and Oxacillin- monitor for signs of infections ( Fever, WBC) Panculture today ( Blood, sputum, UA) 05/07 05/07 Sputm cx: Kleb pneumonia, Enterobacter 04/27 Sputum: Staph aureus/MSSA and beta strep not group A. 05/03 BC: GPC : Coag neg staph 05/02 bronch cx: Staph Aureus ID is following HEME: Normocytic anemia Leukocytosis -Monitor CBC, coags ENDO/FEN: Hyperglycemia -Electrolyte replacement per protocol -Sliding scale insulin PROPH: GI prophylaxis- On Pepcid DVT prophylaxis- Will switch from heparin to Lovenox 40mg SQ BID Given that fact patient developed b/l LE thrombus of posterior veins within calf while on Heparin SQ will switch him to Lovenox 40mg SQ BID giving his weight. Doppler US LE: thrombosis of the posterior tibial vein within the calf bilaterally. LINES: -Utilize peripheral IVs, [facility] central line placed in ED 04/27-d/janina Patient is high risk for a routine line change giving his severe ARDS and is on Rotoprone bed with high PEEP:10 and FIO2: now 80%. Suspicious for line infection is low at this time. He is at high risk for complications. PICC line was cleared by ID. Discussed with Dr. Wiley. PICC line inserted 05/08 Discussed with patient's father and updated him on his condition CC time 35 min
--- NOTE | 2018-05-12 09:01 | XR ---
EXAM DATE: 05/12/2018 8:53 AM EST AGE/SEX: 22 years / Male INDICATIONS: Respiratory failure, evaluate aspiration pneumonia CLINICAL DATA: This is the patient's initial encounter. Patient reports that signs and symptoms have been present for 4 - 6 days and indicates a pain score of Nonresponsive. MEDICAL/SURGICAL HISTORY: . VDRL None. COMPARISON: [facility], CHEST 1V SINGLE AP, 05/11/2018. . FINDINGS: The examination demonstrates an endotracheal tube in place. The endotracheal tube is slightly high th e tip is approximately 7 cm above the level the roque. The heart is normal in size. The mediastinal contours within normal limits. The exam demonstrates atelectatic changes in the right upper lobe. Overall however there is significa nt improvement in areas of the parenchyma compared to previous dated 05/11/2018. CONCLUSION: ET tube is mildly high in position. Atelectatic changes most notably in the right upper lobe. Considerable improvement in aeration of the parenchyma compared to prior exam. Electronically signed by: Michael Gaspar MD 05/12/2018 9:00 AM EST
--- NOTE | 2018-05-12 09:25 | US ---
EXAM DATE: 05/12/2018 9:17 AM EST AGE/SEX: 22 years / Male INDICATIONS: Bilateral lower extremity swelling. CLINICAL DATA: This is the patient's initial encounter. Patient reports that signs and symptoms have been present for 1 day and indicates a pain score of Nonresponsive. MEDICAL/SURGICAL HISTORY: . Bipolar. Tonsillectomy. COMPARISON: No prior exams available for comparison. TECHNIQUE: Venous ultrasound of both lower extremities was performed from the inguinal ligament to t he proximal calf. Real-time, color Doppler and spectral tracing, compression and augmentation techni ques were used. FINDINGS: Right Leg: The deep venous system of the upper thigh is patent throughout its course. The low the le maya the knee the examination demonstrates venous thrombosis of the posterior tibial vein. Left Leg: The deep venous system of the upper thigh is widely patent. Below the level the knee the s tudy again demonstrates venous thrombosis of the posterior tibial vein. Other: None. CONCLUSION: 1. The exam demonstrates thrombosis of the posterior tibial vein within the calf bilaterally. Electronically signed by: Micahel Gaspra MD 05/12/2018 9:24 AM EST
[2018-05-12] MEDS: Pantoprazole Inj 40 MG Vial IV.PUSH SCH (09:39)
[2018-05-12] MEDS: Heparin Central Flush 100 UNIT/ML 5 ML Vial IV.FLUSH SCH (09:41)
[2018-05-12] MEDS: Metoprolol Tartrate 50 MG Tablet PO SCH ×3 (09:41→17:29)
[2018-05-12] MEDS: Polyethylene Glycol 3350 17 GM Packet PO SCH ×2 (09:42→20:17)
[2018-05-12] MEDS: Artificial Tears Opth Drops 15 ML Bottle EACH EYE SCH ×3 (09:42→23:32)
[2018-05-12] MEDS: Senna/Docusate Sodium 8.6/50 MG Tablet PO SCH ×2 (09:43→20:17)
[2018-05-12] MEDS ORDERED: Metoprolol Inj 5 MG/5 ML Vial IV.PUSH ONE (12:15)
--- NOTE | 2018-05-12 13:36 | P.PNID ---
Subjective Remarks: Improved Down to 60% FiO2 no fever diarrhea grew andrews S Kleb, Enterobacter Antibiotics: CFTX oxacillin Lines: Line sites ok Past Medical History: reviewed. Allergies/Adverse Reactions: Allergies shellfish derived Allergy (Verified 04/29/18 13:12) Anaphylaxis No Known Allergies Allergy (Uncoded 04/29/18 13:12) Objective Vital Signs 05/11/18 14:00 05/11/18 15:00 05/11/18 16:00 Temperature 98.4 F 100.8 F H 100.2 F H Pulse Rate 105 H 103 H 128 H Respiratory Rate 16 Pulse Oximetry 94 L 93 L 98 05/11/18 17:00 05/11/18 18:00 05/11/18 20:00 Temperature 100.8 F H 100.4 F H 100.4 F H Pulse Rate 124 H 119 H 112 H Respiratory Rate 16 Pulse Oximetry 98 97 92 L 05/11/18 21:31 05/11/18 23:57 05/12/18 00:00 Temperature 99.7 F H Pulse Rate 113 H 133 H Respiratory Rate 16 16 16 Pulse Oximetry 94 L 94 L 95 05/12/18 04:00 05/12/18 04:10 05/12/18 07:00 Temperature 99.0 F Pulse Rate 123 H 109 H 128 H Respiratory Rate 16 16 16 Pulse Oximetry 95 96 05/12/18 08:00 05/12/18 11:00 05/12/18 11:34 Temperature Pulse Rate 101 H Respiratory Rate 16 16 16 Pulse Oximetry 94 L 96 Intake & Output 05/11/18 05/12/18 05/12/18 18:59 06:59 18:59 Intake Total 4000 / 4000 6810.04 / 6810.04 1849 Output Total 3500 / 3500 4800 / 4800 Balance 500 / 500 2009.1849 / 1849 Weight 162 kg Intake: IV 4000 / 4000 6560.04 / 6560.04 1849 Nimbex Inj 200 MG In NS Inj 480 2500 / 2500 3000 / 3000 1000 / 1000 ML @ 1 MCG/KG/MIN 27.6 mls/hr IV.CONT TITRATE PRN Rx#: [id number] Versed Inj 50 mg In 50 ml @ 2 100 / 100 50 / 50 MG/HR 2 mls/hr IV.CONT TITRATE PRN Rx#:[id number] Diprivan 1000 mg/100 ml Inj 1, 600 / 600 600 / 600 200 / 200 000 mg In 100 ml @ 5 MCG/KG/MIN 4.77 mls/hr IV.CONT TITRATE PRN Rx#:[id number] Merrem Inj 1,000 MG In NS Inj 100 / 100 100 ML @ 200 mls/hr IV.SIG Q8H DARRION Rx#:[id number] MVI-12 Inj 10 ML Folvite Inj 0. 2009.2009.04 2 MG In Clinimix E 4.25%/D5W Inj 2,000 ML @ 83 mls/hr IV.SIG Q24H DARRION Rx#:[id number] Prostaphlin Inj 2 GM In NS Inj 100 / 100 300 / 300 200 / 200 100 ML @ 200 mls/hr IV.SIG Q4H DARRION Rx#:[id number] KCl 40 mEq Premix Inj 40 meq In 100 / 100 100 / 100 100 ml @ 25 mls/hr IV.SIG Q2H PRN Rx#:[id number] Ancef 2 GM Premix Inj 2 gm In 50 / 50 50 ml @ 200 mls/hr IV.SIG Q8H DARRION Rx#:[id number] Rocephin Inj 2,000 MG In NS Inj 100 / 100 100 ML @ 200 mls/hr IV.SIG Q24H DR[facility]ION Rx#:[id number] fentaNYL 10 mcg/mL Premix Drip 250 / 250 500 / 500 250 / 250 2,500 mcg In 250 ml @ 50 MCG/HR 5 mls/hr IV.SIG TITRATE PRN Rx #:[id number] Flolan (30,000 ng/mL) Neb 90 ML 100 / 100 100 / 100 100 / 100 In NS Inj 10 ML @ 5 mls/hr NEB Q8H DARRION Rx#:[id number] Tube Feeding 0 / 0 Water Bolus Amount 250 / 250 Output: Stool 0 / 0 800 / 800 Urine Amount (Catheter) 3400 / 3400 3800 / 3800 Indwelling Urethral Catheter 3400 / 3400 3800 / 3800 Gastric Drainage 100 / 100 200 / 200 Orogastric Tube 100 / 100 200 / 200 Other: Date of Last Bowel Movement 05/12/18 05/07/18 11:35 Blood - Peripheral Aerobic Blood Culture - Final No growth in 5 days 05/07/18 11:35 Blood - Peripheral Anaerobic Blood Culture - Final No growth in 5 days 05/07/18 10:00 Blood - Peripheral Aerobic Blood Culture - Final No growth in 5 days 05/07/18 10:00 Blood - Peripheral Anaerobic Blood Culture - Final No growth in 5 days 05/07/18 10:00 Sputum - Endotracheal Gram Stain - Final 05/07/18 10:00 Sputum - Endotracheal Sputum Culture - Final Enterobacter cloacae Klebsiella pneumoniae Lab - Hematology Results 05/11/18 05/12/18 03:56 05:05 WBC 14.1 H 18.2 H RBC 4.04 L 3.79 L Hgb 11.8 L 11.4 L Hct 35.9 L 32.6 L MCV 88.8 86.2 MCH 29.3 30.1 MCHC 33.0 34.9 RDW 15.6 15.6 Plt Count 401 388 MPV 7.6 7.8 Prelim Diff (Auto) Slide review pending Neut % (Auto) 82.8 H 71.9 H Lymph % (Auto) 10.7 18.4 [place] % (Auto) 6.1 9.3 H Eos % (Auto) 0.1 0.1 Baso % (Auto) 0.3 0.3 Neut # (Auto) 11.7 H 13.1 H Lymph # (Auto) 1.5 3.4 [place] # (Auto) 0.9 1.7 H Eos # (Auto) 0.0 0.0 Baso # (Auto) 0.0 0.1 WBC Differential Manual diff final . Seg Neuts % (Manual) 83 H Band Neuts % (Manual) 5 Lymphocytes % (Manual) 7 L Monocytes % (Manual) 2 Metamyelocytes % (Man) 2 H Myelocytes % (Man) 1 H Abs Neuts (Manual) 12.8 H Differential Comment . Auto diff final Platelet Estimate Normal Platelet Morphology Normal Lab - Chemistry Results 05/10/18 05/10/18 05/10/18 15:33 17:37 19:50 Sodium 140 Potassium 3.6 Chloride 102 Carbon Dioxide 27.9 Anion Gap 10 BUN 25 H Creatinine 0.83 Estimated GFR Greater than 89 POC Glucose 137 H 147 H Random Glucose 131 H Lactic Acid Calcium 8.0 L Phosphorus Magnesium Total Bilirubin AST ALT Alkaline Phosphatase Ammonia Total Creatine Kinase CK-MB (CK-2) CK-MB (CK-2) % Total Protein Albumin Amylase Lipase 05/10/18 05/11/18 05/11/18 23:57 03:56 03:56 Sodium 138 Potassium 3.5 Chloride 100 Carbon Dioxide 28.5 Anion Gap 10 BUN 25 H Creatinine 0.81 Estimated GFR Greater than 89 POC Glucose 107 Random Glucose 160 H Lactic Acid 1.3 Calcium 8.2 L Phosphorus 4.4 Magnesium 2.4 Total Bilirubin 0.3 AST 30 ALT 52 Alkaline Phosphatase 69 Ammonia Total Creatine Kinase 995 H CK-MB (CK-2) 4.0 H CK-MB (CK-2) % 0.4 Total Protein 6.8 Albumin 2.7 L Amylase 77 Lipase 549 H 05/11/18 05/11/18 05/11/18 03:56 06:04 12:39 Sodium Potassium Chloride Carbon Dioxide Anion Gap BUN Creatinine Estimated GFR POC Glucose 130 H 141 H Random Glucose Lactic Acid Calcium Phosphorus Magnesium Total Bilirubin AST ALT Alkaline Phosphatase Ammonia Less than 10 L Total Creatine Kinase CK-MB (CK-2) CK-MB (CK-2) % Total Protein Albumin Amylase Lipase 05/11/18 05/11/18 05/12/18 17:45 23:42 05:05 Sodium 137 Potassium 3.2 L Chloride 103 Carbon Dioxide 22.5 Anion Gap 12 BUN 24 H Creatinine 0.62 Estimated GFR Greater than 89 POC Glucose 142 H 121 H Random Glucose 99 Lactic Acid Calcium 8.2 L Phosphorus 3.1 D Magnesium 2.3 Total Bilirubin 0.5 AST 28 ALT 47 Alkaline Phosphatase 65 Ammonia Total Creatine Kinase CK-MB (CK-2) CK-MB (CK-2) % Total Protein 6.6 Albumin 2.6 L Amylase Lipase 05/12/18 05/12/18 05:07 11:43 Sodium Potassium Chloride Carbon Dioxide Anion Gap BUN Creatinine Estimated GFR POC Glucose 108 134 H Random Glucose Lactic Acid Calcium Phosphorus Magnesium Total Bilirubin AST ALT Alkaline Phosphatase Ammonia Total Creatine Kinase CK-MB (CK-2) CK-MB (CK-2) % Total Protein Albumin Amylase Lipase Imaging: ITS Impressions Head CT 04/27/18 11:31 CONCLUSION: 1. Negative CT Head non contrast. . Abdomen/Pelvis CT 04/27/18 11:35 CONCLUSION: 1. Extensive atelectasis in both lower lobes. 2. The Stone catheter needs to be deflated and advanced into the bladder. The catheter is at the level of the prosthetic urethra. 3. No findings to indicate a bowel obstruction are seen. No free air free fluid is identified. Chest CT 04/27/18 11:35 CONCLUSION: 1. Consolidation both posterior lungs with air bronchograms. This could represent bilateral pneumonia or aspiration. Cervical Spine CT 04/27/18 11:36 CONCLUSION: 1. Negative trauma study. Lumbar Spine CT 04/27/18 11:59 CONCLUSION: 1. Negative for acute process 2. There is no evidence for vertebral compression. Head MRI 04/29/18 07:05 CONCLUSION: 1. Negative MRI of the brain. 2. Inflammatory process cannot be entirely excluded. 3. There are no infarcts identified. Abdomen X-Ray 05/11/18 00:01 CONCLUSION: Paucity of bowel gas. Otherwise within normal limits. Venous Doppler Study 05/12/18 00:00 CONCLUSION: 1. The exam demonstrates thrombosis of the posterior tibial vein within the calf bilaterally. Chest X-Ray 05/12/18 07:31 CONCLUSION: ET tube is mildly high in position. Atelectatic changes most notably in the right upper lobe. Considerable improvement in aeration of the parenchyma compared to prior exam. Physical Exam: examined in supine on rotaprone bed. GENERAL: NAD sedated and paralyzed int'd and on vent SKIN: Warm and dry. no rash. HEAD: Atraumatic. Normocephalic. EYES: Face mildly edematous ENT: orally intubated NECK: Trachea midline. No JVD. CARDIOVASCULAR: RRR no murmurs well perfused periphery RESPIRATORY: clear GASTROINTESTINAL: soft abdomen MUSCULOSKELETAL: Extremities without clubbing, cyanosis, + 2-3 edema. NEUROLOGICAL: sedated and paralyzed PSYCHIATRIC: unable to assess Assessment and Plan - Plan Sepsis ongoing possible new. PNA, probably aspiration Acute VDRF on rotaprone bed. MSSA pneumonia. GNR pneumonia: Kleb, Enterobacter Morbid obesity with likely obesity- hypoventilation sd Coag neg staph bacteremia, low grade doubt clin significance Recs: cont Ceftriaxone + oxacillin Follow cultures Follow clinical course. dw family sanket RN @ b/s
[2018-05-12] MEDS ORDERED: Pharmacy Ordered Lab Info OTHER ONE (20:00)
[2018-05-12] MEDS: Enoxaparin Inj 40 MG/0.4 ML Syringe SQ SCH (20:17)
[2018-05-12] MEDS: Multivitamin Inj 10 ML, Folic Acid Inj 1 MG in AA 4.25 %/D5W - Electrolytes 2,000 ML IV.SIG SCH (20:18)
[2018-05-13] MEDS: Propofol 1000 mg/100 ml Inj 1,000 MG/100 ML BOTTLE IV.CONT PRN ×11 (00:52→23:54)
[2018-05-13] MEDS: SODIUM CHLOR 0.9% IV.CONT PRN ×7 (01:34→14:02)
[2018-05-13] MEDS: CISATRACURIUM IV.CONT PRN ×7 (01:34→14:02)
[2018-05-13] MEDS: EPOPROSTENOL NEB SCH ×4 (03:40→21:29)
[2018-05-13] MEDS: SODIUM CHLOR NEB SCH ×4 (03:40→21:29)
[2018-05-13] MEDS: fentaNYL 10 mcg/mL Premix Drip 2,500 MCG/250 ML BAG IV.SIG PRN ×3 (04:36→18:33)
[2018-05-13] MEDS: Midazolam 50 MG/50 ML Inj 50 MG/50 ML BAG IV.CONT PRN ×5 (04:37→22:45)
[2018-05-13] MEDS: MethylPREDNISolone Sod Succinate Inj 40 MG/ML Vial IV.PUSH SCH ×3 (05:07→21:31)
[2018-05-13] MEDS: Insulin NovoLOG Aspart Correctional Sugar Inj SQ SCH ×3 (05:33→17:13)
[2018-05-13 05:37] LABS: Baso # (Auto) 0.1 th/mm3 (0.0-0.2); Baso % (Auto) 0.4 % (0.0-2.0); Eos % (Auto) 0.1 % (0.0-4.0); Hematocrit 28.8 % (39.0-51.0); Hemoglobin 9.9 gm/dL (13.0-17.0); Lymph # (Auto) 2.7 th/mm3 (1.0-4.8); Lymph % (Auto) 15.1 % (9.0-44.0); Mean Corpuscular HGB Conc 34.4 % (32.0-36.0); Mean Corpuscular Hemoglobin 30.4 pg (27.0-34.0); Mean Corpuscular Volume 88.4 fL (80.0-100.0); Mean Platelet Volume 7.7 fL (7.0-11.0); Mono # (Auto) 1.5 th/mm3 (0.0-0.9); Mono % (Auto) 8.3 % (0.0-8.0); Neut # (Auto) 13.7 th/mm3 (1.8-7.7); Neut % (Auto) 76.1 % (16.0-70.0); Platelet Count 346 th/mm3 (150-450); Red Blood Count 3.26 mil/mm3 (4.50-5.90); Red Cell Distribution Width 15.5 % (11.6-17.2)
[2018-05-13 06:09] LABS: Alanine Aminotransferase 38 U/L (9-52); Albumin 2.3 g/dL (3.4-5.0); Anion Gap 9 meq/L (5-15); Aspartate Aminotransferase 14 U/L (15-39); Blood Urea Nitrogen 22 mg/dL (7-18); Carbon Dioxide 22.4 meq/L (21.0-32.0); Chloride 109 meq/L (98-107); Glomerular Filtration Rate Greater Than 89 mL/min (>89); Glucose,Random 97 mg/dL (74-106); Magnesium 2.2 mg/dL (1.5-2.5); Phosphorus 3.3 mg/dL (2.5-4.9); Potassium 3.9 meq/L (3.5-5.1); Sodium 140 meq/L (136-145)
[2018-05-13 06:11] LABS: Alkaline Phosphatase 54 U/L (45-117)
[2018-05-13] MEDS: Artificial Tears Opth Drops 15 ML Bottle EACH EYE SCH ×2 (07:31→17:12)
[2018-05-13] MEDS: Senna/Docusate Sodium 8.6/50 MG Tablet PO SCH ×2 (08:07→21:29)
[2018-05-13] MEDS: Enoxaparin Inj 40 MG/0.4 ML Syringe SQ SCH ×2 (08:07→21:31)
[2018-05-13] MEDS: Polyethylene Glycol 3350 17 GM Packet PO SCH ×2 (08:07→21:31)
[2018-05-13] MEDS: Pantoprazole Inj 40 MG Vial IV.PUSH SCH (08:07)
[2018-05-13] MEDS: Metoprolol Tartrate 50 MG Tablet PO SCH ×3 (08:07→17:12)
[2018-05-13] MEDS: Heparin Central Flush 100 UNIT/ML 5 ML Vial IV.FLUSH SCH (08:08)
--- NOTE | 2018-05-13 09:12 | P.PNCC ---
Subjective Subjective Remarks/Hospital Course: Patient is approximately 22 years old male obese, was found on the floor by a family member, downtime is unknown. EMS was called, patient was given Narcan with no response, he was intubated on the scene, apparently GCS 3. Found bag of PCP next to the patient. Patient has history of psychiatric disorder ? bipolar disorder and I am told he has attempted suicide in the past. There is also mention about suspicion of ethylene glycol ingestion, but his serum osmolality is 307 his osmolar gap is only 13. Bicarb is 26, ethylene glycol seems unlikely. Ethanol was negative urine drug screen only positive for benzo. I evaluated the patient in the ICU at the [facility]. Patient had a CT of the head which was negative. Rest of the workup unremarkable except for bibasilar atelectasis/aspiration pneumonia. Patient's white count is elevated at 17.1, glucose is 232 lactic acid was 2.8. He received multiple fluid boluses. At this time he is not on any sedation but remains unresponsive no response to deep pain 04/28 Patient remains intubated off sedation unresponsive. Afebrile. 04/29: MRI of the brain revealed no acute intracranial findings. EEG to be performed tomorrow. More arousable and moves all 4 extremities but not following commands. Placed on dexamethasone E drip. 2 feeds will be restarted 04/30: T-max 101.4. Currently afebrile. No bowel movement since admission. Arousable and follows simple commands late last night but currently on sedation for agitation. Increased FiO2 noted. Will attempt to gently diurese and continue antibiotics for pansensitive staph aureus/group a beta strep sputum 05/01 Patient is sedated with Fentanyl, Diprivan and intubated. T:101.1 at 5am. Placed on APRV overnight. 05/02 Patient is sedated with Diprivan and Fentanyl drips. Tmax 101.3, on PC/AC with PEEP:12, FIO2 80%, IP:30 05/03 Patient is heavily sedated with Diprivan, Fentanyl and Versed . On PC/AC with PEEP: 14 and FIO2 100$ sats 92%, CXR yesterday showed diffuse b/l pulm infiltrates, started on Flolan nebs. Had Tmax 102.6 last night. 05/04 Patient was placed on rotoprone bed yesterday sedated with Diprivan, Versed and Fentanyl infusion and on neuromuscular blockade( Nimbex) On PC/AC His FIO2 requirements is better now on FIO2:50% from 100% with PEEP:14. T:102.6 05/05 Patient remains intubated and sedated on Bumex drio0.5mg/hr, T:99.7 at 3am. On PC/AC with PEEP:1 and FIO2 60%- sats 95%. 05/06 Patient remains sedated and intubated on rotoprone bed with improvements in his oxygenation. Now on PC/AC with PEEP:10, FIO2 40%. Afebrile. On Bumex drip 0.5mg/hr. 05/07 Patient remains on rotoprone bed sedated and on Nimbex drip. He is also on Bumex drip 0.5mg/hr with good urine output . 05/08 Patient remains sedated and intubated. On Flolan, and Bumex drip. Afebrile. 05/09 Patient desat overnight now on PC/AC with PEEP:10 and FIO2 100% sats 96%. Had T: 100.4 at midnight. Sputum cx 05/07 GNR. Remains sedated on Flolan and Bumex drip. SUBJECTIVE: 05/10: Resting in bed. Remains on PC/AC rate increased to 16. FiO2 80%. Low- grade fevers noted. Remains on epoprostenol and bumetanide drips. Hypertension noted. Aspirated this a.m. and so discontinued tube feeding. We will start PPN today. 05/11 Patient remains on rotoprone bed, sedated and intubated. Afebrile. On PC/ AC with PEEP;10 and FIO2 55%.On Flolan and Bumex drip 0.5mg/hr 05/12 Remains sedated, intubated and on Rotoprone bed. PC/AC with PEEP: 12 and FIO2 70% sats 96%. T:100.4 last night. On Flolan and Bumex drip. Objective Vital Signs / I&O: Vital Signs 05/12/18 09:00 05/12/18 10:00 05/12/18 11:00 Temperature 98.8 F 98.2 F 99.0 F Pulse Rate 124 H 125 H 112 H Respiratory Rate 16 Blood Pressure Pulse Oximetry 94 L 93 L 96 05/12/18 11:34 05/12/18 12:00 05/12/18 12:28 Temperature 98.8 F 99.1 F Pulse Rate 137 H 126 H Respiratory Rate 16 Blood Pressure 147/79 H Pulse Oximetry 96 96 95 05/12/18 12:30 05/12/18 13:00 05/12/18 13:01 Temperature 99.1 F 99.1 F 99.1 F Pulse Rate 125 H 105 H 106 H Respiratory Rate Blood Pressure 147/71 H 122/58 L Pulse Oximetry 95 96 96 05/12/18 13:30 05/12/18 14:00 05/12/18 14:30 Temperature 98.8 F 99.1 F 99.5 F Pulse Rate 102 H 100 H 103 H Respiratory Rate Blood Pressure 120/61 94/55 L 97/51 L Pulse Oximetry 95 95 95 05/12/18 15:00 05/12/18 15:30 05/12/18 16:00 Temperature 99.7 F H 99.9 F H 100.2 F H Pulse Rate 100 H 98 H 99 H Respiratory Rate 17 17 Blood Pressure 91/50 L 100/53 L 94/51 L Pulse Oximetry 95 93 L 93 L 05/12/18 20:00 05/12/18 21:01 05/12/18 21:30 Temperature 98.6 F 98.2 F 98.4 F Pulse Rate 97 H 91 H 92 H Respiratory Rate 16 Blood Pressure 136/72 105/50 L 106/53 L Pulse Oximetry 96 96 92 L 05/12/18 21:59 05/12/18 22:00 05/12/18 22:30 Temperature 98.8 F 99.3 F Pulse Rate 90 90 89 Respiratory Rate 16 Blood Pressure 151/77 H 160/77 H Pulse Oximetry 93 L 94 L 96 05/12/18 23:00 05/12/18 23:01 05/12/18 23:30 Temperature 99.5 F 99.5 F 99.0 F Pulse Rate 90 89 90 Respiratory Rate Blood Pressure 125/56 L 121/56 L Pulse Oximetry 96 96 94 L 05/13/18 00:00 05/13/18 00:01 05/13/18 00:30 Temperature 99.1 F 99.1 F 99.1 F Pulse Rate 87 88 87 Respiratory Rate 16 Blood Pressure 157/79 H 157/79 H 155/80 H Pulse Oximetry 96 96 96 05/13/18 01:00 05/13/18 01:01 05/13/18 01:05 Temperature 99.1 F 99.1 F Pulse Rate 86 86 86 Respiratory Rate 16 Blood Pressure 133/60 Pulse Oximetry 94 L 94 L 93 L 05/13/18 01:30 05/13/18 02:00 05/13/18 02:30 Temperature 98.6 F 98.4 F 98.4 F Pulse Rate 87 90 87 Respiratory Rate Blood Pressure 123/59 L 158/81 H 158/79 H Pulse Oximetry 93 L 96 96 05/13/18 03:00 05/13/18 03:01 05/13/18 03:30 Temperature 98.8 F 98.6 F 98.4 F Pulse Rate 88 89 90 Respiratory Rate Blood Pressure 119/59 L 118/57 L Pulse Oximetry 96 95 96 05/13/18 04:00 05/13/18 04:30 05/13/18 04:52 Temperature 98.6 F 99.3 F Pulse Rate 88 100 H 98 H Respiratory Rate 16 16 Blood Pressure 158/85 H 170/89 H Pulse Oximetry 96 97 96 05/13/18 05:00 05/13/18 05:30 05/13/18 06:00 Temperature 99.0 F 99.0 F 99.3 F Pulse Rate 99 H 99 H 92 H Respiratory Rate Blood Pressure 152/74 H 161/85 H 166/88 H Pulse Oximetry 95 93 L 96 05/13/18 06:30 05/13/18 07:00 05/13/18 07:30 Temperature 99.7 F H 99.7 F H 99.7 F H Pulse Rate 93 H 100 H 97 H Respiratory Rate Blood Pressure 173/82 H 167/85 H 173/89 H Pulse Oximetry 88 L 96 94 L 05/13/18 08:00 05/13/18 08:24 Temperature 99.3 F Pulse Rate 93 H Respiratory Rate 16 Blood Pressure 165/77 H Pulse Oximetry 94 L 94 L Intake & Output 05/12/18 05/13/18 05/13/18 18:59 06:59 18:59 Intake Total 4150 / 4150 6760.2 / 6760.2 600 / 600 Output Total 3195 / 3195 2350 / 2350 Balance 955 / 955 4410.2 / 4410.2 600 / 600 Weight 168 kg Intake: IV 4150 / 4150 6760.2 / 6760.2 600 / 600 Nimbex Inj 200 MG In NS Inj 480 2500 / 2500 3000 / 3000 500 / 500 ML @ 1 MCG/KG/MIN 27.6 mls/hr IV.CONT TITRATE PRN Rx#: [id number] Versed Inj 50 mg In 50 ml @ 2 100 / 100 100 / 100 MG/HR 2 mls/hr IV.CONT TITRATE PRN Rx#:[id number] Diprivan 1000 mg/100 ml Inj 1, 500 / 500 700 / 700 100 / 100 000 mg In 100 ml @ 5 MCG/KG/MIN 4.77 mls/hr IV.CONT TITRATE PRN Rx#:[id number] MVI-12 Inj 10 ML Folvite Inj 1 2009.2 / 2009.2 MG In Clinimix E 4.25%/D5W Inj 2,000 ML @ 83 mls/hr IV.SIG Q24H DARRION Rx#:[id number] Prostaphlin Inj 2 GM In NS Inj 300 / 300 300 / 300 100 ML @ 200 mls/hr IV.SIG Q4H DARRION Rx#:[id number] KCl 40 mEq Premix Inj 40 meq In 200 / 200 100 ml @ 25 mls/hr IV.SIG Q2H PRN Rx#:[id number] Rocephin Inj 2,000 MG In NS Inj 100 / 100 100 ML @ 200 mls/hr IV.SIG Q24H DARRION Rx#:[id number] fentaNYL 10 mcg/mL Premix Drip 250 / 250 500 / 500 2,500 mcg In 250 ml @ 50 MCG/HR 5 mls/hr IV.SIG TITRATE PRN Rx #:[id number] Flolan (30,000 ng/mL) Neb 90 ML 200 / 200 100 / 100 In NS Inj 10 ML @ 5 mls/hr NEB Q8H DARRION Rx#:[id number] Tube Feeding 0 / 0 Output: Stool 420 / 420 250 / 250 Urine Amount (Catheter) 2424 / 242 1800 / 1800 Indwelling Urethral Catheter 2424 / 2424 1800 / 1800 Gastric Drainage 350 / 350 300 / 300 Orogastric Tube 350 / 350 300 / 300 Other: Date of Last Bowel Movement 05/13/18 Result Diagrams: 05/13/18 05:00 05/13/18 05:00 Objective Remarks: GENERAL: Patient is 22 yo intubated . SKIN: Warm and dry. No rash HEAD: Normocephalic. EYES: No scleral icterus. No injection or drainage. NECK: Supple, trachea midline. No JVD or lymphadenopathy. CARDIOVASCULAR: tachy, rr. without murmurs, gallops, or rubs. RESPIRATORY: Breath sounds equal bilaterally. No accessory muscle use. GASTROINTESTINAL: Abdomen soft, non-tender, nondistended. MUSCULOSKELETAL: No significant peripheral edema. Neuro: intubated, currently on Nimbex drip. Assessment and Plan - Assessment and Plan Plan: NEURO/PSYCH: Acute metabolic encephalopathy Suspected PCP overdose Suspected ethylene glycol overdose Suicide attempt -PCP was found near the patient -On Diprivan at 50 nithya grams per kilogram per minute. Midazolam 10 mg an hour and Fentanyl 300 mcg an hour infusion for sedation and vent synchrony -On Neuromuscular blockade( Nimbex) to facilitate proning -Urine drug screen positive for benzos only -Psychiatric consult after neurological recovery previously on Wellbutrin. -CT of the head negative. MRI of brain negative. Cannot rule out inflammatory process -EEG 04/30 and follow-up EEG 04/28 with no epileptic activity -Ammonia level: 21 -Neuro is following- Dr. Landon RESP: Acute hypoxemic respiratory failure Severe ARDS on Prone therapy Bibasilar aspiration pneumonitis Tobacco abuse -Continue with vent support keep sats >92% -On PC/AC RR16, IP:1.28, IT:1.1, PEEP:12 and GQX763% Decrease FIO2 as kit -On rotoprone bed for proning to improve ventilation/perfusion matching. ( currently 16 hr prone, 8 hour supine) -Once FiO2 less than 50%, PaO2 FiO2 gradient improved to more than 150 increase supine time. ABG pending at this time -Ventilator bundle. Bronchodilators (ipratropium/albuterol, Q4), Solumederol 40mg Q8 -Continue with epoprostenol nebs ( 40,000 ng/ml) CXR 05/12: Atelectatic changes most notably in the right upper lobe. Considerable improvement in aeration of the parenchyma compared to prior exam. CXR 05/11- Left greater than right pulmonary parenchymal opacity s/p bronch 05/02 thick secretions suctioned to clear. No evidence of EBL or bleeding. Nicotine patch 21 mg daily CV: Essential hypertension -Monitor HR and BP keep MAP>65mmHg -Lactic acid 1.7 -On Lopressor 50mg TID -Echo 04/28: EF 60-65%, PASP 36mmHg GI: Elevated ALT Hypoalbuminemia - IV famotidine. On PPN -Place Dobbhoff tube to initiate tube feeding. (Im told patient previously aspirated but this was due to displaced OGT) -Docusate serum/senna 1 tablet twice daily for bowel regimen. Lactulose 30 cc twice daily and MiraLAX 17 g twice daily. -free water 250ml Q12 Renal/FEN/: -Monitor renal function, I/O's, electrolytes replacement as needed -CT abd/pelvis: No findings to indicate a bowel obstruction are seen. No free air free fluid is identified. Bumex was drip was DC'd yesterday however his weight is still 10 kg up from admission weight -Resume Bumex drip at 0.5 mg/h to diuresis to dry weight due to severe ARDS ID: MSSA/group A beta strep pneumonia Superadded Enterobacter/Klebsiella ammonia Abx per ID- On Rocephin and Oxacillin- monitor for signs of infections ( Fever, WBC) 05/07 Sputm cx: Kleb pneumonia, Enterobacter 04/27 Sputum: Staph aureus/MSSA and beta strep not group A. 05/03 BC: Coag neg staph 05/02 bronch cx: Staph Aureus ID is following HEME: Normocytic anemia Leukocytosis -Monitor CBC, coags -Persistent leukocytosis due to sepsis and steroid use ENDO/FEN: Hyperglycemia -Electrolyte replacement per protocol -Sliding scale insulin PROPH: GI prophylaxis- On Pepcid DVT prophylaxis- Lovenox 40mg SQ BID b/l LE thrombus of posterior veins within calf while on Heparin SQ -switched to Lovenox 40mg SQ BID giving his weight. Doppler US LE: thrombosis of the posterior tibial vein within the calf bilaterally. Check follow-up ultrasound in 2-3 days to evaluate for progression LINES: -Utilize peripheral IVs, [facility] central line placed in ED 04/27-d/janina. PICC placed on 05/08/18 Discussed with patient's father and updated him on his condition CC time 35 min
[2018-05-13 10:41] LABS: ABG Base Excess -4.1 mmol/L (-2-2); ABG PCO2 35 mmHg (38-42); ABG PO2 243 mmHG (61-120)
--- NOTE | 2018-05-13 10:59 | XR ---
EXAM DATE: 05/13/2018 10:45 AM EST AGE/SEX: 22 years / Male INDICATIONS: Dobbhoff placement. CLINICAL DATA: This is the patient's subsequent encounter. Patient reports that signs and symptoms h ave been present for 1 day and indicates a pain score of Nonresponsive. MEDICAL/SURGICAL HISTORY: None. None. COMPARISON: [place], ABDOMEN 1V KUB, 05/11/2018. . FINDINGS: Feeding tube across the GE junction. Bowel gas pattern unremarkable. CONCLUSION: Feeding tube fundus of the stomach. Electronically signed by: Zay Gaspar MD 05/13/2018 10:58 AM EST
--- NOTE | 2018-05-13 11:04 | XR ---
EXAM DATE: 05/13/2018 10:55 AM EST AGE/SEX: 22 years / Male INDICATIONS: Evaluate lung status. Ventilator dependant respiratory failure. CLINICAL DATA: This is the patient's subsequent encounter. Patient reports that signs and symptoms h ave been present for 1 month and indicates a pain score of Nonresponsive. MEDICAL/SURGICAL HISTORY: None. None. COMPARISON: [facility] [place], CHEST 1V SINGLE AP, 05/12/2018. . FINDINGS: There is infiltrate in the left upper lobe. Its new from the previous study. The endotracheal tube an d nasogastric are both in good position. The right lung is clear. CONCLUSION: Infiltrate left upper lobe. ET tube in good position Electronically signed by: Will Montano MD 05/13/2018 11:02 AM EST
[2018-05-13] MEDS: Bumetanide Inj 25 MG/100 ML BAG IV.CONT SCH (11:26)
[2018-05-13] MEDS ORDERED: Haloperidol Inj 5 MG/ML Ampul IV.PUSH PRN (16:26)
[2018-05-13] MEDS: Dexmedetomidine Inj 200 MCG in Sodium Chlor 0.9% Inj 48 ML IV.CONT PRN ×3 (18:32→23:43)
[2018-05-13 19:16] LABS: Anion Gap 11 meq/L (5-15); Blood Urea Nitrogen 20 mg/dL (7-18); Calcium 8.3 mg/dL (8.5-10.1); Carbon Dioxide 23.4 meq/L (21.0-32.0); Chloride 106 meq/L (98-107); Glomerular Filtration Rate Greater Than 89 mL/min (>89); Glucose,Random 132 mg/dL (74-106); Potassium 3.7 meq/L (3.5-5.1); Sodium 140 meq/L (136-145)
[2018-05-13] MEDS: Multivitamin Inj 10 ML, Folic Acid Inj 1 MG in AA 4.25 %/D5W - Electrolytes 2,000 ML IV.SIG SCH (21:20)
[2018-05-13] MEDS: QUEtiapine 25 MG Tablet PO SCH ×2 (21:32→23:15)
[2018-05-14] MEDS: Artificial Tears Opth Drops 15 ML Bottle EACH EYE SCH ×3 (01:08→17:02)
[2018-05-14] MEDS: Insulin NovoLOG Aspart Correctional Sugar Inj SQ SCH ×4 (01:08→18:17)
[2018-05-14] MEDS: Dexmedetomidine Inj 200 MCG in Sodium Chlor 0.9% Inj 48 ML IV.CONT PRN (01:25)
[2018-05-14] MEDS: fentaNYL 10 mcg/mL Premix Drip 2,500 MCG/250 ML BAG IV.SIG PRN ×4 (01:26→20:06)
[2018-05-14] MEDS: Propofol 1000 mg/100 ml Inj 1,000 MG/100 ML BOTTLE IV.CONT PRN ×10 (01:26→22:20)
[2018-05-14] MEDS: Dexmedetomidine Inj 1,000 MCG in Sodium Chlor 0.9% Inj 240 ML IV.CONT PRN ×3 (03:11→20:03)
[2018-05-14] MEDS: Midazolam 50 MG/50 ML Inj 50 MG/50 ML BAG IV.CONT PRN ×5 (03:58→20:02)
--- NOTE | 2018-05-14 04:54 | XR ---
EXAM DATE: 05/14/2018 4:14 AM EST AGE/SEX: 22 years / Male INDICATIONS: Shortness of breath, aspiration pneumonia. CLINICAL DATA: This is the patient's subsequent encounter. Patient reports that signs and symptoms h ave been present for 3 weeks and indicates a pain score of Nonresponsive. MEDICAL/SURGICAL HISTORY: None. Tonsillectomy. COMPARISON: [facility], CHEST 1V SINGLE AP, 05/13/2018. . FINDINGS: A single AP semierect view of the chest was obtained. The nasogastric tube is been removed. The endot kateryna tube remains in place with the tip 4 cm above the roque. There is right-sided PICC line in p lace. The previously noted hazy opacity in the left lung is improved significantly. There is new hazy opacity in the right lung. The heart size is at the upper limits of normal. The bony thorax is intac t. CONCLUSION: 1. Interval improvement in prior hazy opacity in the left lung. 2. Interval increase in hazy opacity throughout the right lung. This may represent posterior layerin g effusion. Electronically signed by: Albert Hebert MD 05/14/2018 4:53 AM EST
[2018-05-14 05:02] LABS: Baso % (Auto) 0.2 % (0.0-2.0); Hematocrit 32.5 % (39.0-51.0); Hemoglobin 10.6 gm/dL (13.0-17.0); Lymph # (Auto) 2.4 th/mm3 (1.0-4.8); Lymph % (Auto) 13.2 % (9.0-44.0); Mean Corpuscular HGB Conc 32.8 % (32.0-36.0); Mean Corpuscular Hemoglobin 29.3 pg (27.0-34.0); Mean Corpuscular Volume 89.4 fL (80.0-100.0); Mean Platelet Volume 8.2 fL (7.0-11.0); Mono # (Auto) 1.5 th/mm3 (0.0-0.9); Mono % (Auto) 8.2 % (0.0-8.0); Neut # (Auto) 14.4 th/mm3 (1.8-7.7); Neut % (Auto) 78.4 % (16.0-70.0); Platelet Count 347 th/mm3 (150-450); Red Blood Count 3.63 mil/mm3 (4.50-5.90); Red Cell Distribution Width 15.9 % (11.6-17.2); White Blood Count 18.5 th/mm3 (4.0-11.0)
[2018-05-14 05:23] LABS: Alanine Aminotransferase 47 U/L (9-52); Albumin 2.5 g/dL (3.4-5.0); Alkaline Phosphatase 70 U/L (45-117); Anion Gap 11 meq/L (5-15); Aspartate Aminotransferase 21 U/L (15-39); Blood Urea Nitrogen 21 mg/dL (7-18); Calcium 8.3 mg/dL (8.5-10.1); Carbon Dioxide 24.7 meq/L (21.0-32.0); Chloride 104 meq/L (98-107); Glomerular Filtration Rate Greater Than 89 mL/min (>89); Glucose,Random 124 mg/dL (74-106); Phosphorus 3.1 mg/dL (2.5-4.9); Sodium 140 meq/L (136-145)
[2018-05-14] MEDS: MethylPREDNISolone Sod Succinate Inj 40 MG/ML Vial IV.PUSH SCH ×3 (05:42→21:44)
[2018-05-14 05:45] LABS: Potassium 2.9 meq/L (3.5-5.1)
[2018-05-14] MEDS: Potassium Chlor 40 mEq Premix 40 MEQ/100 ML PIGGYBACK IV.SIG PRN ×2 (06:48→11:27)
[2018-05-14 07:09] LABS: Lymphocytes 10 % (9-44); Metamyelocytes 1 % (0-1); Monocytes 8 % (0-8); Platelet Estimate Normal (Normal); Platelet Morphology Normal (Normal); RBC Morphology Normal (Normal)
[2018-05-14] MEDS: Heparin Central Flush 100 UNIT/ML 5 ML Vial IV.FLUSH SCH (08:30)
[2018-05-14] MEDS: Enoxaparin Inj 40 MG/0.4 ML Syringe SQ SCH ×2 (08:30→20:05)
[2018-05-14] MEDS: Metoprolol Tartrate 50 MG Tablet PO SCH ×3 (08:30→17:01)
[2018-05-14] MEDS: Senna/Docusate Sodium 8.6/50 MG Tablet PO SCH ×2 (08:31→20:00)
[2018-05-14] MEDS: Polyethylene Glycol 3350 17 GM Packet PO SCH ×2 (08:31→20:00)
[2018-05-14] MEDS: Pantoprazole Inj 40 MG Vial IV.PUSH SCH (08:31)
[2018-05-14] MEDS: QUEtiapine 25 MG Tablet PO SCH ×2 (08:32→22:14)
[2018-05-14] MEDS: SODIUM CHLOR NEB SCH ×3 (11:17→22:36)
[2018-05-14] MEDS: EPOPROSTENOL NEB SCH ×3 (11:17→22:36)
--- NOTE | 2018-05-14 12:14 | P.PNCC ---
Subjective Subjective Remarks/Hospital Course: Patient is approximately 22 years old male obese, was found on the floor by a family member, downtime is unknown. EMS was called, patient was given Narcan with no response, he was intubated on the scene, apparently GCS 3. Found bag of PCP next to the patient. Patient has history of psychiatric disorder ? bipolar disorder and I am told he has attempted suicide in the past. There is also mention about suspicion of ethylene glycol ingestion, but his serum osmolality is 307 his osmolar gap is only 13. Bicarb is 26, ethylene glycol seems unlikely. Ethanol was negative urine drug screen only positive for benzo. I evaluated the patient in the ICU at the [facility]. Patient had a CT of the head which was negative. Rest of the workup unremarkable except for bibasilar atelectasis/aspiration pneumonia. Patient's white count is elevated at 17.1, glucose is 232 lactic acid was 2.8. He received multiple fluid boluses. At this time he is not on any sedation but remains unresponsive no response to deep pain 04/28 Patient remains intubated off sedation unresponsive. Afebrile. 04/29: MRI of the brain revealed no acute intracranial findings. EEG to be performed tomorrow. More arousable and moves all 4 extremities but not following commands. Placed on dexamethasone E drip. 2 feeds will be restarted 04/30: T-max 101.4. Currently afebrile. No bowel movement since admission. Arousable and follows simple commands late last night but currently on sedation for agitation. Increased FiO2 noted. Will attempt to gently diurese and continue antibiotics for pansensitive staph aureus/group a beta strep sputum 05/01 Patient is sedated with Fentanyl, Diprivan and intubated. T:101.1 at 5am. Placed on APRV overnight. 05/02 Patient is sedated with Diprivan and Fentanyl drips. Tmax 101.3, on PC/AC with PEEP:12, FIO2 80%, IP:30 05/03 Patient is heavily sedated with Diprivan, Fentanyl and Versed . On PC/AC with PEEP: 14 and FIO2 100$ sats 92%, CXR yesterday showed diffuse b/l pulm infiltrates, started on Flolan nebs. Had Tmax 102.6 last night. 05/04 Patient was placed on rotoprone bed yesterday sedated with Diprivan, Versed and Fentanyl infusion and on neuromuscular blockade( Nimbex) On PC/AC His FIO2 requirements is better now on FIO2:50% from 100% with PEEP:14. T:102.6 05/05 Patient remains intubated and sedated on Bumex drio0.5mg/hr, T:99.7 at 3am. On PC/AC with PEEP:1 and FIO2 60%- sats 95%. 05/06 Patient remains sedated and intubated on rotoprone bed with improvements in his oxygenation. Now on PC/AC with PEEP:10, FIO2 40%. Afebrile. On Bumex drip 0.5mg/hr. 05/07 Patient remains on rotoprone bed sedated and on Nimbex drip. He is also on Bumex drip 0.5mg/hr with good urine output . 05/08 Patient remains sedated and intubated. On Flolan, and Bumex drip. Afebrile. 05/09 Patient desat overnight now on PC/AC with PEEP:10 and FIO2 100% sats 96%. Had T: 100.4 at midnight. Sputum cx 05/07 GNR. Remains sedated on Flolan and Bumex drip. 05/10: Resting in bed. Remains on PC/AC rate increased to 16. FiO2 80%. Low- grade fevers noted. Remains on epoprostenol and bumetanide drips. Hypertension noted. Aspirated this a.m. and so discontinued tube feeding. We will start PPN today. 05/11 Patient remains on rotoprone bed, sedated and intubated. Afebrile. On PC/ AC with PEEP;10 and FIO2 55%.On Flolan and Bumex drip 0.5mg/hr 05/12 Remains sedated, intubated and on Rotoprone bed. PC/AC with PEEP: 12 and FIO2 70% sats 96%. T:100.4 last night. On Flolan and Bumex drip. 05/14: Off rotaprone since yesterday, nimbex discontinued, PEEP 14 and FiO2 50% with sats in mid 90s. Still on flolan. Objective Vital Signs / I&O: Vital Signs 05/13/18 12:13 05/13/18 12:30 05/13/18 13:00 Temperature 97.7 F 98.2 F Pulse Rate 91 H 89 94 H Respiratory Rate Blood Pressure 135/74 153/85 H 168/96 H Pulse Oximetry 98 98 98 05/13/18 13:30 05/13/18 13:38 05/13/18 14:00 Temperature 98.6 F 98.8 F 99.0 F Pulse Rate 95 H 94 H 94 H Respiratory Rate Blood Pressure 183/104 H 172/94 H Pulse Oximetry 98 97 98 05/13/18 14:01 05/13/18 14:30 05/13/18 15:00 Temperature 99.1 F 99.5 F 100.0 F H Pulse Rate 95 H 94 H 92 H Respiratory Rate 16 Blood Pressure 177/94 H 171/105 H Pulse Oximetry 97 98 94 L 05/13/18 15:01 05/13/18 15:30 05/13/18 16:00 Temperature 100.0 F H 100.0 F H 99.9 F H Pulse Rate 95 H 90 101 H Respiratory Rate 16 Blood Pressure 140/82 161/91 H Pulse Oximetry 94 L 93 L 97 05/13/18 16:01 05/13/18 19:00 05/13/18 19:31 Temperature 99.9 F H 99.7 F H 100.4 F H Pulse Rate 106 H 86 92 H Respiratory Rate Blood Pressure 166/86 H 146/85 H 128/60 Pulse Oximetry 96 95 94 L 05/13/18 20:00 05/13/18 20:30 05/13/18 21:00 Temperature 101.3 F H 102.0 F H 102.4 F H Pulse Rate 93 H 97 H 97 H Respiratory Rate Blood Pressure 121/70 112/57 L 127/88 Pulse Oximetry 93 L 93 L 94 L 05/13/18 21:05 05/13/18 21:06 05/13/18 21:31 Temperature 102.6 F H Pulse Rate 98 H 101 H Respiratory Rate 16 16 Blood Pressure 127/70 Pulse Oximetry 94 L 94 L 05/13/18 22:00 05/13/18 22:01 05/13/18 22:31 Temperature 102.4 F H 102.4 F H 102.6 F H Pulse Rate 101 H 101 H 102 H Respiratory Rate Blood Pressure 102/52 L 108/53 L Pulse Oximetry 91 L 91 L 05/13/18 23:00 05/13/18 23:30 05/14/18 00:00 Temperature 102.9 F H 103.3 F H 103.3 F H Pulse Rate 102 H 102 H 101 H Respiratory Rate Blood Pressure 154/86 H 160/78 H Pulse Oximetry 92 L 95 94 L 05/14/18 00:01 05/14/18 00:30 05/14/18 00:54 Temperature 103.3 F H 103.1 F H Pulse Rate 101 H 98 H Respiratory Rate 16 Blood Pressure 122/59 L 119/65 Pulse Oximetry 94 L 94 L 94 L 05/14/18 00:58 05/14/18 01:00 05/14/18 01:31 Temperature 102.7 F H 102.6 F H Pulse Rate 95 H 96 H 93 H Respiratory Rate 16 Blood Pressure 114/70 152/86 H Pulse Oximetry 94 L 94 L 05/14/18 02:00 05/14/18 02:01 05/14/18 02:31 Temperature 102.7 F H 102.7 F H 102.6 F H Pulse Rate 93 H 93 H 99 H Respiratory Rate Blood Pressure 162/76 H 115/59 L Pulse Oximetry 93 L 93 L 89 L 05/14/18 03:00 05/14/18 03:30 05/14/18 04:00 Temperature 102.4 F H 102.4 F H 102.4 F H Pulse Rate 97 H 94 H 86 Respiratory Rate Blood Pressure 115/64 122/75 166/91 H Pulse Oximetry 91 L 91 L 91 L 05/14/18 04:31 05/14/18 05:00 05/14/18 05:01 Temperature 102.4 F H 102.2 F H 102.2 F H Pulse Rate 92 H 92 H 92 H Respiratory Rate Blood Pressure 168/78 H 130/68 Pulse Oximetry 89 L 90 L 90 L 05/14/18 05:11 05/14/18 05:13 05/14/18 05:31 Temperature 102.2 F H Pulse Rate 94 H 95 H Respiratory Rate 19 19 Blood Pressure 122/64 Pulse Oximetry 93 L 90 L 05/14/18 06:00 05/14/18 06:01 05/14/18 06:30 Temperature 102.4 F H 102.4 F H 102.6 F H Pulse Rate 94 H 96 H 90 Respiratory Rate Blood Pressure 122/60 166/91 H Pulse Oximetry 91 L 91 L 90 L 05/14/18 07:00 05/14/18 07:01 05/14/18 07:31 Temperature 102.6 F H 102.7 F H 102.7 F H Pulse Rate 91 H 92 H 97 H Respiratory Rate Blood Pressure 172/80 H 112/59 L Pulse Oximetry 90 L 90 L 95 05/14/18 08:00 05/14/18 08:42 05/14/18 11:25 Temperature 102.0 F H Pulse Rate 89 92 H 88 Respiratory Rate 16 16 Blood Pressure 160/92 H Pulse Oximetry 92 L 94 L 94 L Intake & Output 05/13/18 05/14/18 05/14/18 18:59 06:59 18:59 Intake Total 4320 / 4320 3410.2 / 3410.2 800 / 800 Output Total 08506 / 48346 6700 / 6700 2024 / 2024 Balance -6090 / -6090 -3289.8 / -3289.8 -1225 / -1225 Intake: IV 3950 / 3950 3410.2 / 3410.2 800 / 800 Nimbex Inj 200 MG In NS Inj 480 2500 / 2500 ML @ 1 MCG/KG/MIN 27.6 mls/hr IV.CONT TITRATE PRN Rx#: [id number] Precedex Inj 200 MCG In NS Inj 150 / 150 48 ML @ 0.2 MCG/KG/HR 8.4 mls/ hr IV.CONT TITRATE PRN Rx#: [id number] Versed Inj 50 mg In 50 ml @ 2 150 / 150 100 / 100 50 / 50 MG/HR 2 mls/hr IV.CONT TITRATE PRN Rx#:[id number] Diprivan 1000 mg/100 ml Inj 1, 500 / 500 500 / 500 200 / 200 000 mg In 100 ml @ 5 MCG/KG/MIN 4.77 mls/hr IV.CONT TITRATE PRN Rx#:[id number] MVI-12 Inj 10 ML Folvite Inj 1 2009.2 / 2009.2 MG In Clinimix E 4.25%/D5W Inj 2,000 ML @ 83 mls/hr IV.SIG Q24H DARRION Rx#:[id number] Prostaphlin Inj 2 GM In NS Inj 200 / 200 300 / 300 100 / 100 100 ML @ 200 mls/hr IV.SIG Q4H DARRION Rx#:[id number] KCl 40 mEq Premix Inj 40 meq In 100 / 100 100 ml @ 25 mls/hr IV.SIG Q2H PRN Rx#:[id number] Rocephin Inj 2,000 MG In NS Inj 100 / 100 100 ML @ 200 mls/hr IV.SIG Q24H DARRION Rx#:[id number] fentaNYL 10 mcg/mL Premix Drip 500 / 500 250 / 250 250 / 250 2,500 mcg In 250 ml @ 50 MCG/HR 5 mls/hr IV.SIG TITRATE PRN Rx #:[id number] Flolan (30,000 ng/mL) Neb 90 ML 100 / 100 100 / 100 In NS Inj 10 ML @ 5 mls/hr NEB Q8H DARRION Rx#:[id number] Tube Irrigant 120 / 120 Water Bolus Amount 250 / 250 Output: Stool 160 / 160 Urine Amount (Catheter) 33075 / 07020 6700 / 6700 2024 Indwelling Urethral Catheter 44523 / 68106 6700 / 6700 2024 Gastric Drainage 50 / 50 Orogastric Tube 50 / 50 Result Diagrams: 05/14/18 03:47 05/14/18 03:47 Objective Remarks: GENERAL: Patient is 22 yo intubated . SKIN: Warm and dry. No rash HEAD: Normocephalic. EYES: No scleral icterus. No injection or drainage. NECK: Supple, trachea midline. No JVD or lymphadenopathy. CARDIOVASCULAR: tachy, rr. without murmurs, gallops, or rubs. RESPIRATORY: Breath sounds equal bilaterally. No accessory muscle use. GASTROINTESTINAL: Abdomen soft, non-tender, nondistended. MUSCULOSKELETAL: No significant peripheral edema. Neuro: intubated, currently on Nimbex drip. Assessment and Plan - Assessment and Plan Plan: NEURO/PSYCH: Acute metabolic encephalopathy Suspected PCP overdose Suspected ethylene glycol overdose Suicide attempt -Still requiring high levels of sedation to prevent vent dyssynchrony-- currently on precedex, propofol, versed, fentanyl, and is getting scheduled seroquel and oxycodone -Psychiatric consult after neurological recovery previously on Wellbutrin. -CT of the head negative. MRI of brain negative. Cannot rule out inflammatory process -EEG 04/30 and follow-up EEG 04/28 with no epileptic activity -Ammonia level: 21 -Neuro is following- Dr. Edmondson RESP: Acute hypoxemic respiratory failure Severe ARDS on Prone therapy Bibasilar aspiration pneumonitis Tobacco abuse -Continue with vent support keep sats >92% -On PC/AC RR16, PEEP 14 and FIO2 50% Decrease FIO2 as kit -Ventilator bundle. Bronchodilators (ipratropium/albuterol, Q4), Solumederol 40mg Q8 -Continue with epoprostenol nebs ( 40,000 ng/ml) -I spoke with the patient's mother regarding tracheostomy. The patient has been intubated for 2 weeks and will need prolonged vent wean. She understands and agrees to proceed. Given patient's body habitus and high PEEP requirements, will consult general surgery as patient is a poor candidate for bedside trach. CXR 05/12: Atelectatic changes most notably in the right upper lobe. Considerable improvement in aeration of the parenchyma compared to prior exam. CXR 05/11- Left greater than right pulmonary parenchymal opacity s/p bronch 05/02 thick secretions suctioned to clear. No evidence of EBL or bleeding. Nicotine patch 21 mg daily CV: Essential hypertension -Monitor HR and BP keep MAP>65mmHg -Lactic acid 1.7 -On Lopressor 50mg TID -Echo 04/28: EF 60-65%, PASP 36mmHg GI: Elevated ALT Hypoalbuminemia - IV famotidine. On PPN -Dobhoff placed yesterday, advanced, will check repeat X-ray and if post-pyloric , will start trickle TFs -Docusate serum/senna 1 tablet twice daily for bowel regimen. Lactulose 30 cc twice daily and MiraLAX 17 g twice daily. -free water 250ml Q12 Renal/FEN/: -Monitor renal function, I/O's, electrolytes replacement as needed -CT abd/pelvis: No findings to indicate a bowel obstruction are seen. No free air free fluid is identified. -Continue Bumex drip at 0.5 mg/h to diuresis to dry weight due to severe ARDS, patient's urine output is several liters so far on day shift ID: MSSA/group A beta strep pneumonia Superadded Enterobacter/Klebsiella ammonia Abx per ID- On Rocephin and Oxacillin- monitor for signs of infections ( Fever, WBC) 05/07 Sputm cx: Kleb pneumonia, Enterobacter 04/27 Sputum: Staph aureus/MSSA and beta strep not group A. 05/03 BC: Coag neg staph 05/02 bronch cx: Staph Aureus ID is following HEME: Normocytic anemia Leukocytosis -Monitor CBC, coags -Persistent leukocytosis due to sepsis and steroid use ENDO/FEN: Hyperglycemia -Electrolyte replacement per protocol -Sliding scale insulin PROPH: GI prophylaxis- On Pepcid DVT prophylaxis- Lovenox 40mg SQ BID b/l LE thrombus of posterior veins within calf while on Heparin SQ -switched to Lovenox 40mg SQ BID giving his weight. Doppler US LE: thrombosis of the posterior tibial vein within the calf bilaterally. Check follow-up ultrasound on Friday 05/18 to eval for progression LINES: -Utilize peripheral IVs, LIJ central line placed in ED 04/27-d/janina. PICC placed on 05/08/18 Counseling/ Coordination of Care: This patient is critically ill with impairment of one or more vital organ systems with a high probability of imminent or life-threatening deterioration. High-complexity medical decision making was required to support vital organ function and/ or prevent deterioration in the patient's condition. Total critical care time spent is 55 minutes giving full attention to this patient. This includes examining the patient, gathering history from someone other than the patient (i.e. chart review), discussing the patient's care with other providers, managing the patient's blood pressure and ventilator settings, ordering and interpreting radiologic studies, ordering and interpreting laboratory values, managing the patient's sedation requirements, re-evaluation at frequent intervals, and documentation. Amount of time is separate from teaching, counseling the patient and/or family, and exclusive of procedures. To help prompt me to consider important information that might be impacting today's encounter and assessment, information from prior notes written by myself or my colleagues may have been "brought forward" into today's note. My signature on this note, however, is an attestation that I personally performed the exam, history, and/or decision-making noted today, and, unless otherwise indicated, the interactions with patient, family, and staff as well as the review of records all occurred today. I also attest that the listed assessment and stated plan reflect my best clinical judgment today based on the combination of historical information, prior notes, and today's exam/ interactions. Code Status: Full
--- NOTE | 2018-05-14 13:23 | XR ---
EXAM DATE: 05/14/2018 1:12 PM EST AGE/SEX: 22 years / Male INDICATIONS: NG tube placement. CLINICAL DATA: This is the patient's subsequent encounter. Patient reports that signs and symptoms h ave been present for 1 day and indicates a pain score of Nonresponsive. MEDICAL/SURGICAL HISTORY: None. None. COMPARISON: [facility] [place], ABDOMEN SINGLE [place]IEW, 05/13/2018. . FINDINGS: The images are limited due to patient motion. The feeding tube appears to be located within the proxi mal stomach. CONCLUSION: Limited films appear to demonstrate the feeding tube in the proximal stomach. Electronically signed by: Tay Nuñez MD 05/14/2018 1:21 PM EST
--- NOTE | 2018-05-14 14:13 | P.DIET ---
Nutritional Evaluation Type of nutrition evaluation: follow-up Nutrition consult regarding: TPN/PPN Objective - Diagnosis suicidal attempt, aspiration pneumonia - Objective % IBW: 192 (IBW = 202lb) Body Weight Used for Calculations: IBW Energy Needs - Lower Range (kCal/kg): 11 Energy Needs - Upper Range (kCal/kg): 14 Lower Limit kCal/kg (kCals): 1,848 Upper Limit kCal/kg (kCals): 2,352 Lower Limit Protein Factor (Grams per Kg): 1.2 Upper Limit Protein Factor (Grams per Kg): 1.5 Lower Protein Needs (Protein): 110 Upper Protein Needs (Protein): 138 Fluid Factor (ml/kg): 30 Estimated Fluid Needs (ml): 2,754 Dietitian Reviewed in Medical Record: Curent medications, Intake & Output, Labs , Medical history, Tube feeding Diet Order: NPO, TPN Speech Therapy Recommendations: No Objective Comments: PMH: affective bipolar disorder labs: K+ 2.9, BUN 21, POC glucose 148, 128, random glucose 124, Ca+ 8.3 Assessment Assessment: Pts TF on hold since 05/10, previously running at 45mL/hr before pt aspirated, per MD note pt was started on PPN. Pt receiving Clinimix E 4.25/D5W @ 83mL/hr. Per MD note, pt had dobhoff placed yesterday (05/13) and if post pyloric, start trickle feeds. RD to recommend Jevity 1.5 @ 60mL w/ Beneprotein 1 pkt TID to provide 2235 kcal, 110g of protein, and 1094mL of free water to best meet pts nutritional needs. Additional kcal (1.1kcal/mL provided by propofol when running. Labs reviewed, dietitian following. Additional recs r/t on medical course. Recommendations: 1. Per MD note, pt had dobhoff placed yesterday (05/13) and if post pyloric, start trickle feeds 2. RD to recommend Jevity 1.5 @ 60mL w/ Beneprotein 1 pkt TID to best meet pts nutritional needs 3. Additional kcal (1.1kcal/mL provided by propofol when running 4. Additional recs r/t on medical course Dietitian to Monitor: Lab values, Electrolytes, Intake & Output, Weight change, Medical course
--- NOTE | 2018-05-14 14:31 | XR ---
EXAM DATE: 05/14/2018 2:21 PM EST AGE/SEX: 22 years / Male INDICATIONS: Dobbhoff placement. CLINICAL DATA: This is the patient's subsequent encounter. Patient reports that signs and symptoms h ave been present for 1 day and indicates a pain score of Nonresponsive. MEDICAL/SURGICAL HISTORY: None. None. COMPARISON: [facility] – [place]BDOMEN [place], 05/14/2018. . FINDINGS: A weighted feeding tube coils into the pylorus, tip possibly just into the duodenal bulb. There is a ir present in the colon. No suspicious calcific densities. Visualized skeleton appears intact. CONCLUSION: Weighted feeding tube tip in satisfactory position. Additional advancement may allow the tube to migr ate into the small bowel Electronically signed by: Alexis Tomlin MD 05/14/2018 2:30 PM EST
--- NOTE | 2018-05-14 14:54 | P.CONGS ---
[facility] Gen Surgery Consult Note Consult date: 05/14/18 Reason for consult: other (tracheostomy tube placement) Requesting physician: Zaira Cullen Narrative: CONSULTATION NOTE FOR SURGICAL ATTENDING, DR. BAM LUNA This is a 22 year old male with a history of bronchitis, bipolar disease and major depressive disorder. He is currently intubated and heavily sedated and the history and history of present illness is obtained from his father, Ace. According to his father, he had gotten in some trouble after selling marijuana on the [facility] and was placed in fpc for 12 days. He has been off his prescribed psychiatric medications during that time. When he was released, he went back to live with his family. The father reports he "just was not right " when released. The father found him unresponsive in his room with all his prescribed psychiatric medication bottles empty. On EMS arrival, the patient was intubated due to a GCS of 3. The patient has been intubated since admission. He was placed on a Rotoprone bed for a period of time. He has been on Flolan. Currently his PEEP is 14 and an FiO2 of 50%. A General Surgery consultation has been requested for evaluation of tracheostomy tube. Review of Systems unobtainable due to endotracheal tube PMFSH - History History Provided By: Family Member, Medical Record - Medical History Medical History: Medical History (Last Reviewed 05/14/18 @ 20:21 by Bam Luna MD) Affective bipolar disorder Bronchitis - Surgical History Surgical History: Surgical History (Last Reviewed 05/14/18 @ 20:06 by Bam Luna MD) Hx of tonsillectomy - Family History Family History: Family History (Last Reviewed 05/14/18 @ 20:06 by Bam Luna MD) Other Family history normal - Social History I have reviewed the patient's Social History: Yes - Tobacco History Second Hand Smoke Exposure: No Tobacco Use In Past 30 Days: No Smoking Status: Current every day smoker Tobacco Type: E-Cigarettes - Alcohol History How Often Do You Have a Drink Containing Alcohol: Never - Substance Use History Substance History: Past History - Travel History Recent Travel in the [place] Within the Last 8 Weeks: No Recent Travel Out of the Country Within the Last 8 Weeks: No - Immunization History Tetanus Immunization: Unsure Medications and Allergies Allergies Allergy/AdvReac Type Severity Reaction Status Date / Time shellfish derived Allergy Anaphylaxis Verified 04/29/18 13:12 No Known Allergies Allergy Uncoded 04/29/18 13:12 Home Medications Medication Instructions Recorded Confirmed Type Unable to Obtain Home Meds 04/27/18 04/27/18 History Exam Vital signs: Vital Signs 05/13/18 15:00 05/13/18 15:01 05/13/18 15:30 Temperature 100.0 F H 100.0 F H 100.0 F H Pulse Rate 92 H 95 H 90 Respiratory Rate 16 Blood Pressure 140/82 161/91 H Pulse Oximetry 94 L 94 L 93 L 05/13/18 16:00 05/13/18 16:01 05/13/18 19:00 Temperature 99.9 F H 99.9 F H 99.7 F H Pulse Rate 101 H 106 H 86 Respiratory Rate 16 Blood Pressure 166/86 H 146/85 H Pulse Oximetry 97 96 95 05/13/18 19:31 05/13/18 20:00 05/13/18 20:30 Temperature 100.4 F H 101.3 F H 102.0 F H Pulse Rate 92 H 93 H 97 H Respiratory Rate Blood Pressure 128/60 121/70 112/57 L Pulse Oximetry 94 L 93 L 93 L 05/13/18 21:00 05/13/18 21:05 05/13/18 21:06 Temperature 102.4 F H Pulse Rate 97 H 98 H Respiratory Rate 16 16 Blood Pressure 127/88 Pulse Oximetry 94 L 94 L 05/13/18 21:31 05/13/18 22:00 05/13/18 22:01 Temperature 102.6 F H 102.4 F H 102.4 F H Pulse Rate 101 H 101 H 101 H Respiratory Rate Blood Pressure 127/70 102/52 L Pulse Oximetry 94 L 91 L 91 L 05/13/18 22:31 05/13/18 23:00 05/13/18 23:30 Temperature 102.6 F H 102.9 F H 103.3 F H Pulse Rate 102 H 102 H 102 H Respiratory Rate Blood Pressure 108/53 L 154/86 H 160/78 H Pulse Oximetry 92 L 95 05/14/18 00:00 05/14/18 00:01 05/14/18 00:30 Temperature 103.3 F H 103.3 F H 103.1 F H Pulse Rate 101 H 101 H 98 H Respiratory Rate Blood Pressure 122/59 L 119/65 Pulse Oximetry 94 L 94 L 94 L 05/14/18 00:54 05/14/18 00:58 05/14/18 01:00 Temperature 102.7 F H Pulse Rate 95 H 96 H Respiratory Rate 16 16 Blood Pressure 114/70 Pulse Oximetry 94 L 94 L 05/14/18 01:31 05/14/18 02:00 05/14/18 02:01 Temperature 102.6 F H 102.7 F H 102.7 F H Pulse Rate 93 H 93 H 93 H Respiratory Rate Blood Pressure 152/86 H 162/76 H Pulse Oximetry 94 L 93 L 93 L 05/14/18 02:31 05/14/18 03:00 05/14/18 03:30 Temperature 102.6 F H 102.4 F H 102.4 F H Pulse Rate 99 H 97 H 94 H Respiratory Rate Blood Pressure 115/59 L 115/64 122/75 Pulse Oximetry 89 L 91 L 91 L 05/14/18 04:00 05/14/18 04:31 05/14/18 05:00 Temperature 102.4 F H 102.4 F H 102.2 F H Pulse Rate 86 92 H 92 H Respiratory Rate Blood Pressure 166/91 H 168/78 H Pulse Oximetry 91 L 89 L 90 L 05/14/18 05:01 05/14/18 05:11 05/14/18 05:13 Temperature 102.2 F H Pulse Rate 92 H 94 H Respiratory Rate 19 19 Blood Pressure 130/68 Pulse Oximetry 90 L 93 L 05/14/18 05:31 05/14/18 06:00 05/14/18 06:01 Temperature 102.2 F H 102.4 F H 102.4 F H Pulse Rate 95 H 94 H 96 H Respiratory Rate Blood Pressure 122/64 122/60 Pulse Oximetry 90 L 91 L 91 L 05/14/18 06:30 05/14/18 07:00 05/14/18 07:01 Temperature 102.6 F H 102.6 F H 102.7 F H Pulse Rate 90 91 H 92 H Respiratory Rate Blood Pressure 166/91 H 172/80 H Pulse Oximetry 90 L 90 L 90 L 05/14/18 07:31 05/14/18 08:00 05/14/18 08:31 Temperature 102.7 F H 102.0 F H 102.0 F H Pulse Rate 97 H 89 91 H Respiratory Rate Blood Pressure 112/59 L 160/92 H 167/78 H Pulse Oximetry 95 92 L 93 L 05/14/18 08:42 05/14/18 09:00 05/14/18 09:01 Temperature 102.0 F H 102.0 F H Pulse Rate 92 H 94 H 93 H Respiratory Rate 16 Blood Pressure 132/60 Pulse Oximetry 94 L 92 L 92 L 05/14/18 09:30 05/14/18 10:00 05/14/18 10:30 Temperature 102.0 F H 101.8 F H 101.8 F H Pulse Rate 92 H 93 H 90 Respiratory Rate Blood Pressure 122/66 113/73 159/91 H Pulse Oximetry 94 L 93 L 91 L 05/14/18 11:00 05/14/18 11:01 05/14/18 11:25 Temperature 101.8 F H 101.8 F H Pulse Rate 93 H 93 H 88 Respiratory Rate 16 Blood Pressure 163/75 H Pulse Oximetry 91 L 91 L 94 L 05/14/18 11:31 05/14/18 12:00 Temperature 101.7 F H 101.7 F H Pulse Rate 94 H 93 H Respiratory Rate Blood Pressure 116/63 119/66 Pulse Oximetry 95 96 Intake & Output 05/13/18 05/14/18 05/14/18 18:59 06:59 18:59 Intake Total 4320 / 4320 3410.2 / 3410.2 1050 / 1050 Output Total 69124 / 78007 6700 / 6700 2024 / 2024 Balance -6090 / -6090 -3289.8 / -3289.8 -975 / -975 Intake: IV 3950 / 3950 3410.2 / 3410.2 1050 / 1050 Nimbex Inj 200 MG In NS Inj 480 2500 / 2500 ML @ 1 MCG/KG/MIN 27.6 mls/hr IV.CONT TITRATE PRN Rx#: [id number] Precedex Inj 200 MCG In NS Inj 150 / 150 48 ML @ 0.2 MCG/KG/HR 8.4 mls/ hr IV.CONT TITRATE PRN Rx#: [id number] Versed Inj 50 mg In 50 ml @ 2 150 / 150 100 / 100 50 / 50 MG/HR 2 mls/hr IV.CONT TITRATE PRN Rx#:[id number] Diprivan 1000 mg/100 ml Inj 1, 500 / 500 500 / 500 200 / 200 000 mg In 100 ml @ 5 MCG/KG/MIN 4.77 mls/hr IV.CONT TITRATE PRN Rx#:[id number] MVI-12 Inj 10 ML Folvite Inj 1 2009.2 / 2009.2 MG In Clinimix E 4.25%/D5W Inj 2,000 ML @ 83 mls/hr IV.SIG Q24H [facility] Rx#:[id number] Prostaphlin Inj 2 GM In NS Inj 200 / 200 300 / 300 100 / 100 100 ML @ 200 mls/hr IV.SIG Q4H [facility] Rx#:[id number] KCl 40 mEq Premix Inj 40 meq In 100 / 100 100 ml @ 25 mls/hr IV.SIG Q2H PRN Rx#:[id number] Rocephin Inj 2,000 MG In NS Inj 100 / 100 100 ML @ 200 mls/hr IV.SIG Q24H [facility] Rx#:[id number] fentaNYL 10 mcg/mL Premix Drip 500 / 500 250 / 250 500 / 500 2,500 mcg In 250 ml @ 50 MCG/HR 5 mls/hr IV.SIG TITRATE PRN Rx #:[id number] Flolan (30,000 ng/mL) Neb 90 ML 100 / 100 100 / 100 In NS Inj 10 ML @ 5 mls/hr NEB Q8H [facility] Rx#:[id number] Tube Irrigant 120 / 120 Water Bolus Amount 250 / 250 Output: Stool 160 / 160 Urine Amount (Catheter) 15926 / 22970 6700 / 6700 2024 Indwelling Urethral Catheter 18216 / 66737 6700 / 6700 2024 Gastric Drainage 50 / 50 Orogastric Tube 50 / 50 Narrative: GENERAL: 22 year old male heavily sedated, orally intubated on mechanical ventilation. SKIN: Clammy feeling. He has several superficial abrasions. HEAD: Atraumatic. Normocephalic. EYES: Pupils equal and round. No scleral icterus. No injection or drainage. ENT: No nasal bleeding or discharge. Mucous membranes pink and moist. NECK: Trachea midline. In proper position the trachea is palpable. CARDIOVASCULAR: Regular rate and rhythm. RESPIRATORY: No accessory muscle use. Course breath sounds bilaterally. GASTROINTESTINAL: Abdomen soft, non-tender, nondistended. Obese. MUSCULOSKELETAL: Extremities with generalized edema. NEUROLOGICAL: Sedated. Unable to fully examine. PSYCHIATRIC: Unable to examine. Results - Labs 05/14/18 03:47 05/14/18 18:24 Laboratory Last Values CBC w Diff Auto diff final 04/27/18 11:30 WBC 18.5 th/mm3 (4.0-11.0) H 05/14/18 03:47 RBC 3.63 mil/mm3 (4.50-5.90) L 05/14/18 03:47 Hgb 10.6 gm/dL (13.0-17.0) L 05/14/18 03:47 Hct 32.5 % (39.0-51.0) L 05/14/18 03:47 MCV 89.4 fL (80.0-100.0) 05/14/18 03:47 MCH 29.3 pg (27.0-34.0) 05/14/18 03:47 MCHC 32.8 % (32.0-36.0) 05/14/18 03:47 RDW 15.9 % (11.6-17.2) 05/14/18 03:47 Plt Count 347 th/mm3 (150-450) 05/14/18 03:47 MPV 8.2 fL (7.0-11.0) 05/14/18 03:47 Prelim Diff (Auto) Slide review pending 05/14/18 03:47 Neut % (Auto) 78.4 % (16.0-70.0) H 05/14/18 03:47 Lymph % (Auto) 13.2 % (9.0-44.0) 05/14/18 03:47 [place] % (Auto) 8.2 % (0.0-8.0) H 05/14/18 03:47 Eos % (Auto) 0.0 % (0.0-4.0) 05/14/18 03:47 Baso % (Auto) 0.2 % (0.0-2.0) 05/14/18 03:47 Neut # (Auto) 14.4 th/mm3 (1.8-7.7) H 05/14/18 03:47 Lymph # (Auto) 2.4 th/mm3 (1.0-4.8) 05/14/18 03:47 [place] # (Auto) 1.5 th/mm3 (0.0-0.9) H 05/14/18 03:47 Eos # (Auto) 0.0 th/mm3 (0.0-0.4) 05/14/18 03:47 Baso # (Auto) 0.0 th/mm3 (0.0-0.2) 05/14/18 03:47 WBC Differential Manual diff final 05/14/18 03:47 Seg Neuts % (Manual) 77 % (16-70) H 05/14/18 03:47 Band Neuts % (Manual) 4 % (0-6) 05/14/18 03:47 Lymphocytes % (Manual) 10 % (9-44) 05/14/18 03:47 Monocytes % (Manual) 8 % (0-8) 05/14/18 03:47 Eosinophils % (Manual) 1 % (0-4) 05/06/18 04:11 Metamyelocytes % (Man) 1 % (0-1) 05/14/18 03:47 Myelocytes % (Man) 1 % (0-0) H 05/11/18 03:56 Promyelocytes % (Man) 1 % (0-0) H 05/06/18 04:11 Abs Neuts (Manual) 15.2 th/mm3 (1.8-7.7) H 05/14/18 03:47 Differential Comment . 05/14/18 03:47 Toxic Granulation 1+ (None) H 05/08/18 03:55 Toxic Vacuolation Present (None) H 05/06/18 04:11 Platelet Estimate Normal (Normal) 05/14/18 03:47 Platelet Morphology Normal (Normal) 05/14/18 03:47 RBC Morphology Normal (Normal) 05/14/18 03:47 PT 11.4 sec (9.8-11.6) 05/11/18 03:56 INR 1.1 Ratio 05/11/18 03:56 APTT 31.7 sec (23.4-31.7) 05/11/18 03:56 Fibrinogen 373 mg/dL (227-377) 04/27/18 16:00 Puncture Site Right radial 05/13/18 10:31 Patient Temperature 98.6 05/13/18 10:31 O2 Saturation 97 % (90-100) 05/13/18 10:31 ABG pH 7.38 (7.380-7.420) 05/13/18 10:31 ABG pCO2 35 mmHg (38-42) L 05/13/18 10:31 ABG pO2 243 mmHG (61-120) H 05/13/18 10:31 ABG HCO3 20 mmol/L (22-26) L 05/13/18 10:31 ABG O2 Content 14.2 Vol % (12.0-20.0) 05/13/18 10:31 ABG Base Excess -4.1 mmol/L (-2-2) L 05/13/18 10:31 ABG Methemoglobin 1.7 % (0-2) 05/13/18 10:31 Noah Test Present 05/13/18 10:31 Hemoglobin 10.0 G/DL (12.0-16.0) L 05/13/18 10:31 Carboxyhemoglobin 0.7 % (0-4) 05/13/18 10:31 O2 Delivery Device Vent 05/13/18 10:31 Vent Setting See comments 05/13/18 10:31 Inspired O2 100 % 05/13/18 10:31 Critical Value No 05/13/18 10:31 Sodium 140 meq/L (136-145) 05/14/18 03:47 Potassium 3.5 meq/L (3.5-5.1) 05/14/18 18:24 Chloride 104 meq/L (98-107) 05/14/18 03:47 Carbon Dioxide 24.7 meq/L (21.0-32.0) 05/14/18 03:47 Anion Gap 11 meq/L (5-15) 05/14/18 03:47 BUN 21 mg/dL (7-18) H 05/14/18 03:47 Creatinine 0.68 mg/dL (0.60-1.30) 05/14/18 03:47 Estimated GFR Greater than 89 mL/min (>89) 05/14/18 03:47 POC Glucose 146 mg/dl (68-110) H 05/14/18 17:11 Random Glucose 124 mg/dL (74-106) H 05/14/18 03:47 Osmolality 311 mosm/kg (275-295) H 04/28/18 18:20 Lactic Acid 1.3 mmol/L (0.4-2.0) 05/11/18 03:56 Calcium 8.3 mg/dL (8.5-10.1) L 05/14/18 03:47 Prot Corrected Calcium 8.1 mg/dL (8.5-10.1) L 04/28/18 01:25 Phosphorus 3.1 mg/dL (2.5-4.9) 05/14/18 03:47 Magnesium 2.0 mg/dL (1.5-2.5) 05/14/18 03:47 Total Bilirubin 0.5 mg/dL (0.2-1.0) 05/14/18 03:47 AST 21 U/L (15-39) 05/14/18 03:47 ALT 47 U/L (9-52) 05/14/18 03:47 Alkaline Phosphatase 70 U/L (45-117) 05/14/18 03:47 Ammonia Less than 10 mcmol/L (11-32) L 05/11/18 03:56 Total Creatine Kinase 995 U/L (39-308) H 05/11/18 03:56 CK-MB (CK-2) 4.0 ng/mL (0.5-3.6) H 05/11/18 03:56 CK-MB (CK-2) % 0.4 % (0.0-4.0) 05/11/18 03:56 Troponin I 0.17 ng/mL (0.02-0.05) H 04/27/18 20:35 Total Protein 7.0 g/dL (6.4-8.2) D 05/14/18 03:47 Albumin 2.5 g/dL (3.4-5.0) L 05/14/18 03:47 Amylase 77 U/L (25-115) 05/11/18 03:56 Lipase 549 U/L (73-393) H 05/11/18 03:56 Urine Color Yellow (Yellw/Straw) 05/07/18 10:00 Urine Clarity Clear (Clear) 05/07/18 10:00 Urine pH 5.0 (5.0-8.5) 05/07/18 10:00 Ur Specific [place] 1.025 (1.002-1.035) 05/07/18 10:00 Urine Protein Negative mg/dL (Neg-Trace) 05/07/18 10:00 Urine Glucose (UA) Negative mg/dL (Negative) 05/07/18 10:00 Urine Ketones Negative mg/dL (Negative) 05/07/18 10:00 Urine Occult Blood Negative (Negative) 05/07/18 10:00 Urine Nitrate Negative (Negative) 05/07/18 10:00 Urine Bilirubin Negative (Negative) 05/07/18 10:00 Urine Urobilinogen Less than 2 mg/dL (Less than 2) 05/07/18 10:00 Ur Leukocyte Esterase Negative (Negative) 05/07/18 10:00 Urine RBC Less than 1 /hpf (0-3) 05/07/18 10:00 Urine WBC Less than 1 /hpf (0-5) 05/07/18 10:00 Hyaline Casts 5 /lpf (0-3) 05/07/18 10:00 Urine Mucus Few /lpf (Occasional) H 05/07/18 10:00 Micro UA Comment Cath-culture not ind 05/07/18 10:00 Ur Microscopic Review Not Reportable 05/07/18 10:00 Urine Culture Comments Cath-cult not ind 05/07/18 10:00 Nasal Screen MRSA (PCR) Cancelled 04/27/18 19:00 Stl C.difficile DNA Amp Negative (Negative) 05/12/18 15:50 St C. diff Tox Epid 027 Negative (Negative) 05/12/18 15:50 Random Tobramycin 1.8 mg/dL 05/09/18 05:20 Vancomycin Trough 12.5 mcg/mL (5.0-10.0) H 05/08/18 01:45 Salicylates Less than 1.7 mg/dL (2.8-20.0) L 04/27/18 11:40 Urine Opiates Screen Neg (Neg) 04/27/18 14:31 Acetaminophen Less than 2.0 mcg/mL (10.0-30.0) L 04/27/18 11:40 Ur Barbiturates Screen Neg (Neg) 04/27/18 14:31 Valproic Acid Less than 3 mcg/mL (50-100) L 04/28/18 18:20 Carbamazepine 0.5 mcg/mL (4.0-12.0) L 04/28/18 18:20 Ur Amphetamines Screen Neg (Neg) 04/27/18 14:31 U Benzodiazepines Scrn Pos (Neg) H 04/27/18 14:31 [place] 0.1 meq/L (0.5-1.5) L 04/28/18 18:20 Urine Cocaine Screen Neg (Neg) 04/27/18 14:31 U Cannabinoids Screen Neg (Neg) 04/27/18 14:31 Serum Alcohol Less than 3 mg/dL (0-5) 04/27/18 11:30 - Imaging Imaging: ITS Impressions Head CT 04/27/18 11:31 CONCLUSION: 1. Negative CT Head non contrast. . Abdomen/Pelvis CT 04/27/18 11:35 CONCLUSION: 1. Extensive atelectasis in both lower lobes. 2. The Stone catheter needs to be deflated and advanced into the bladder. The catheter is at the level of the prosthetic urethra. 3. No findings to indicate a bowel obstruction are seen. No free air free fluid is identified. Chest CT 04/27/18 11:35 CONCLUSION: 1. Consolidation both posterior lungs with air bronchograms. This could represent bilateral pneumonia or aspiration. Cervical Spine CT 04/27/18 11:36 CONCLUSION: 1. Negative trauma study. Lumbar Spine CT 04/27/18 11:59 CONCLUSION: 1. Negative for acute process 2. There is no evidence for vertebral compression. Head MRI 04/29/18 07:05 CONCLUSION: 1. Negative MRI of the brain. 2. Inflammatory process cannot be entirely excluded. 3. There are no infarcts identified. Venous Doppler Study 05/12/18 00:00 CONCLUSION: 1. The exam demonstrates thrombosis of the posterior tibial vein within the calf bilaterally. Chest X-Ray 05/14/18 06:00 CONCLUSION: 1. Interval improvement in prior hazy opacity in the left lung. 2. Interval increase in hazy opacity throughout the right lung. This may represent posterior layering effusion. Abdomen X-Ray 05/14/18 13:26 CONCLUSION: Weighted feeding tube tip in satisfactory position. Additional advancement may allow the tube to migrate into the small bowel Assessment and Plan - Assessment (1) Respiratory failure Code(s): J96.90 - Respiratory failure, unspecified, unspecified whether with hypoxia or hypercapnia Status: Acute Plan: 22 year old male with overdose; aspiration; ventilator dependent respiratory failure in need of tracheostomy tube placement. -Patient still on 50% and 14 of PEEP -Discussed with Dr. Cullen--- will continue to wean PEEP down --ideally to 5 or 8 which would provide a safer window to place tracheostomy tube -Discussed with family about plan-- procedure explained in detail including risks and benefits -For safety reason--- will plan for placement of tracheostomy tube in the OR due to size of patient and ventilator settings -Dr. Cullen and family agree -Thank you for this consult; We will continue to follow - Plan Discussed Condition With: Dr. Jeremy Gomez RN and Dulce DIXON Father---Ace and Grandmother at bedside - Attending Attestation CONSULTATION NOTE FOR SURGICAL ATTENDING, DR. BAM LUNA Patient seen and examined We will plan tracheostomy when the patient is more stable I agree with above assessment and plan. The exam, history, and the medical decision-making described in the above note were completed with the assistance of the mid-level provider. I reviewed and agree with the findings presented. I attest that I had a [id number] encounter with the patient on the same day, and personally performed and documented my assessment and findings in the medical record. The following services were provided during this hospital visit: Chart data review, vital sign assessments/reviewing monitor data Review of consultations notes if present. Medication orders/review and/or management Ordering and/or reviewing lab tests Ordering and/or interpreting/reviewing x-rays and/or diagnostic studies Care of the patient and discussion of the patient with the care team Documentation time To help prompt me to consider important information that might be impacting today's encounter and assessment, Information from prior notes written by myself or my colleagues may have been "brought forward/copy and pasted" into today's note.
--- NOTE | 2018-05-14 17:46 | ECG ---
Date Performed: 05/13/2018 Time Performed: 16:46:50 PTAGE: 22 years EKG: Sinus rhythm WITH FREQUENT ECTOPIC PREMATURE COMPLEXES NONSPECIFIC T-WAVE ABNORMALITY ABNORMAL RHYTHM ECG NO PREVIOUS TRACING DOCTOR: Clarke Madera Interpretating Date/Time 05/14/2018 17:44:01
[2018-05-14] MEDS: Bumetanide Inj 25 MG/100 ML BAG IV.CONT SCH (20:04)
--- NOTE | 2018-05-14 20:10 | P.PNID ---
Subjective Remarks: Improved off Rotaprone bed still high PEEP of 14 , FiO2 50% minimal secretions + new fever +diarrhea grew andrews S Kleb, Enterobacter Antibiotics: CFTX oxacillin Lines: Line sites ok Past Medical History: reviewed. Allergies/Adverse Reactions: Allergies shellfish derived Allergy (Verified 04/29/18 13:12) Anaphylaxis No Known Allergies Allergy (Uncoded 04/29/18 13:12) Objective Vital Signs 05/13/18 20:30 05/13/18 21:00 05/13/18 21:05 Temperature 102.0 F H 102.4 F H Pulse Rate 97 H 97 H 98 H Respiratory Rate 16 Blood Pressure 112/57 L 127/88 Pulse Oximetry 93 L 94 L 05/13/18 21:06 05/13/18 21:31 05/13/18 22:00 Temperature 102.6 F H 102.4 F H Pulse Rate 101 H 101 H Respiratory Rate 16 Blood Pressure 127/70 Pulse Oximetry 94 L 94 L 91 L 05/13/18 22:01 05/13/18 22:31 05/13/18 23:00 Temperature 102.4 F H 102.6 F H 102.9 F H Pulse Rate 101 H 102 H 102 H Respiratory Rate Blood Pressure 102/52 L 108/53 L 154/86 H Pulse Oximetry 91 L 92 L 05/13/18 23:30 05/14/18 00:00 05/14/18 00:01 Temperature 103.3 F H 103.3 F H 103.3 F H Pulse Rate 102 H 101 H 101 H Respiratory Rate Blood Pressure 160/78 H 122/59 L Pulse Oximetry 95 94 L 94 L 05/14/18 00:30 05/14/18 00:54 05/14/18 00:58 Temperature 103.1 F H Pulse Rate 98 H 95 H Respiratory Rate 16 16 Blood Pressure 119/65 Pulse Oximetry 94 L 94 L 05/14/18 01:00 05/14/18 01:31 05/14/18 02:00 Temperature 102.7 F H 102.6 F H 102.7 F H Pulse Rate 96 H 93 H 93 H Respiratory Rate Blood Pressure 114/70 152/86 H Pulse Oximetry 94 L 94 L 93 L 05/14/18 02:01 05/14/18 02:31 05/14/18 03:00 Temperature 102.7 F H 102.6 F H 102.4 F H Pulse Rate 93 H 99 H 97 H Respiratory Rate Blood Pressure 162/76 H 115/59 L 115/64 Pulse Oximetry 93 L 89 L 91 L 05/14/18 03:30 05/14/18 04:00 05/14/18 04:31 Temperature 102.4 F H 102.4 F H 102.4 F H Pulse Rate 94 H 86 92 H Respiratory Rate Blood Pressure 122/75 166/91 H 168/78 H Pulse Oximetry 91 L 91 L 89 L 05/14/18 05:00 05/14/18 05:01 05/14/18 05:11 Temperature 102.2 F H 102.2 F H Pulse Rate 92 H 92 H 94 H Respiratory Rate 19 Blood Pressure 130/68 Pulse Oximetry 90 L 90 L 05/14/18 05:13 05/14/18 05:31 05/14/18 06:00 Temperature 102.2 F H 102.4 F H Pulse Rate 95 H 94 H Respiratory Rate 19 Blood Pressure 122/64 Pulse Oximetry 93 L 90 L 91 L 05/14/18 06:01 05/14/18 06:30 05/14/18 07:00 Temperature 102.4 F H 102.6 F H 102.6 F H Pulse Rate 96 H 90 91 H Respiratory Rate Blood Pressure 122/60 166/91 H Pulse Oximetry 91 L 90 L 90 L 05/14/18 07:01 05/14/18 07:31 05/14/18 08:00 Temperature 102.7 F H 102.7 F H 102.0 F H Pulse Rate 92 H 97 H 89 Respiratory Rate Blood Pressure 172/80 H 112/59 L 160/92 H Pulse Oximetry 90 L 95 92 L 05/14/18 08:31 05/14/18 08:42 05/14/18 09:00 Temperature 102.0 F H 102.0 F H Pulse Rate 91 H 92 H 94 H Respiratory Rate 16 Blood Pressure 167/78 H Pulse Oximetry 93 L 94 L 92 L 05/14/18 09:01 05/14/18 09:30 05/14/18 10:00 Temperature 102.0 F H 102.0 F H 101.8 F H Pulse Rate 93 H 92 H 93 H Respiratory Rate Blood Pressure 132/60 122/66 113/73 Pulse Oximetry 92 L 94 L 93 L 05/14/18 10:30 05/14/18 11:00 05/14/18 11:01 Temperature 101.8 F H 101.8 F H 101.8 F H Pulse Rate 90 93 H 93 H Respiratory Rate Blood Pressure 159/91 H 163/75 H Pulse Oximetry 91 L 91 L 91 L 05/14/18 11:25 05/14/18 11:31 05/14/18 12:00 Temperature 101.7 F H 101.7 F H Pulse Rate 88 94 H 93 H Respiratory Rate 16 Blood Pressure 116/63 119/66 Pulse Oximetry 94 L 95 96 05/14/18 12:30 05/14/18 13:00 05/14/18 13:01 Temperature 101.7 F H Pulse Rate 94 H 99 H 101 H Respiratory Rate Blood Pressure 111/63 105/57 L Pulse Oximetry 94 L 93 L 92 L 05/14/18 13:30 05/14/18 14:00 05/14/18 14:30 Temperature 101.7 F H 101.8 F H 101.5 F H Pulse Rate 93 H 96 H 100 H Respiratory Rate Blood Pressure 112/69 115/66 110/60 Pulse Oximetry 95 92 L 93 L 05/14/18 15:00 05/14/18 15:31 05/14/18 15:38 Temperature 101.3 F H 101.1 F H Pulse Rate 97 H 101 H 103 H Respiratory Rate 16 Blood Pressure 118/73 106/58 L Pulse Oximetry 93 L 94 L 94 L 05/14/18 16:00 05/14/18 16:53 05/14/18 17:00 Temperature 101.1 F H 100.6 F H 100.4 F H Pulse Rate 97 H 96 H 93 H Respiratory Rate Blood Pressure 117/69 125/74 126/71 Pulse Oximetry 93 L 91 L 92 L 05/14/18 17:30 05/14/18 19:23 Temperature 100.6 F H Pulse Rate 87 92 H Respiratory Rate 16 Blood Pressure 120/72 Pulse Oximetry 92 L 93 L Intake & Output 05/14/18 05/14/18 05/15/18 06:59 18:59 06:59 Intake Total 3410.2 / 3410.2 3987 / 3987 Output Total 6700 / 6700 3135 / 3135 Balance -3289.8 / -3289.8 852 / 852 Intake: IV 3410.2 / 3410.2 3547 / 3547 Precedex Inj 1,000 MCG In NS 250 / 250 Inj 240 ML @ 0.2 MCG/KG/HR 8.4 mls/hr IV.CONT TITRATE PRN Rx#: [id number] Precedex Inj 200 MCG In NS Inj 150 / 150 48 ML @ 0.2 MCG/KG/HR 8.4 mls/ hr IV.CONT TITRATE PRN Rx#: [id number] Versed Inj 50 mg In 50 ml @ 2 100 / 100 150 / 150 MG/HR 2 mls/hr IV.CONT TITRATE PRN Rx#:[id number] Diprivan 1000 mg/100 ml Inj 1, 500 / 500 500 / 500 000 mg In 100 ml @ 5 MCG/KG/MIN 4.77 mls/hr IV.CONT TITRATE PRN Rx#:[id number] MVI-12 Inj 10 ML Folvite Inj 1 2009.2 / 2009.2 1547 / 1547 MG In Clinimix E 4.25%/D5W Inj 2,000 ML @ 83 mls/hr IV.SIG Q24H [facility] Rx#:[id number] Prostaphlin Inj 2 GM In NS Inj 300 / 300 200 / 200 100 ML @ 200 mls/hr IV.SIG Q4H [facility] Rx#:[id number] KCl 40 mEq Premix Inj 40 meq In 200 / 200 100 ml @ 25 mls/hr IV.SIG Q2H PRN Rx#:[id number] Rocephin Inj 2,000 MG In NS Inj 100 / 100 100 ML @ 200 mls/hr IV.SIG Q24H [facility] Rx#:[id number] fentaNYL 10 mcg/mL Premix Drip 250 / 250 500 / 500 2,500 mcg In 250 ml @ 50 MCG/HR 5 mls/hr IV.SIG TITRATE PRN Rx #:[id number] Flolan (30,000 ng/mL) Neb 90 ML 100 / 100 100 / 100 In NS Inj 10 ML @ 5 mls/hr NEB Q8H [facility] Rx#:[id number] Tube Feeding 10 / 10 Tube Irrigant 180 / 180 Water Bolus Amount 250 / 250 Output: Stool 60 / 60 Urine Amount (Catheter) 0 / 6700 3075 / 3075 Indwelling Urethral Catheter 6700 / 6700 3075 / 3075 05/07/18 11:35 Blood - Peripheral Aerobic Blood Culture - Final No growth in 5 days 05/07/18 11:35 Blood - Peripheral Anaerobic Blood Culture - Final No growth in 5 days 05/07/18 10:00 Blood - Peripheral Aerobic Blood Culture - Final No growth in 5 days 05/07/18 10:00 Blood - Peripheral Anaerobic Blood Culture - Final No growth in 5 days Lab - Hematology Results 05/13/18 05/14/18 05:00 03:47 WBC 18.0 H 18.5 H RBC 3.26 L 3.63 L Hgb 9.9 L 10.6 L Hct 28.8 L 32.5 L MCV 88.4 89.4 MCH 30.4 29.3 MCHC 34.4 32.8 RDW 15.5 15.9 Plt Count 346 347 MPV 7.7 8.2 Prelim Diff (Auto) Slide review pending Neut % (Auto) 76.1 H 78.4 H Lymph % (Auto) 15.1 13.2 [place] % (Auto) 8.3 H 8.2 H Eos % (Auto) 0.1 0.0 Baso % (Auto) 0.4 0.2 Neut # (Auto) 13.7 H 14.4 H Lymph # (Auto) 2.7 2.4 [place] # (Auto) 1.5 H 1.5 H Eos # (Auto) 0.0 0.0 Baso # (Auto) 0.1 0.0 WBC Differential . Manual diff final Seg Neuts % (Manual) 77 H Band Neuts % (Manual) 4 Lymphocytes % (Manual) 10 Monocytes % (Manual) 8 Metamyelocytes % (Man) 1 Abs Neuts (Manual) 15.2 H Differential Comment Auto diff final . Platelet Estimate Normal Platelet Morphology Normal RBC Morphology Normal Lab - Chemistry Results 05/12/18 05/13/18 05/13/18 23:38 05:00 05:32 Sodium 140 Potassium 3.9 Chloride 109 H Carbon Dioxide 22.4 Anion Gap 9 BUN 22 H Creatinine 0.51 L Estimated GFR Greater than 89 POC Glucose 107 111 H Random Glucose 97 Calcium 8.0 L Phosphorus 3.3 Magnesium 2.2 Total Bilirubin 0.4 AST 14 L ALT 38 Alkaline Phosphatase 54 Total Protein 6.0 L D Albumin 2.3 L 05/13/18 05/13/18 05/13/18 12:59 17:08 17:49 Sodium 140 Potassium 3.7 Chloride 106 Carbon Dioxide 23.4 Anion Gap 11 BUN 20 H Creatinine 0.58 L Estimated GFR Greater than 89 POC Glucose 110 138 H Random Glucose 132 H Calcium 8.3 L Phosphorus Magnesium Total Bilirubin AST ALT Alkaline Phosphatase Total Protein Albumin 05/14/18 05/14/18 05/14/18 00:55 03:47 12:04 Sodium 140 Potassium 2.9 L* D Chloride 104 Carbon Dioxide 24.7 Anion Gap 11 BUN 21 H Creatinine 0.68 Estimated GFR Greater than 89 POC Glucose 148 H 128 H Random Glucose 124 H Calcium 8.3 L Phosphorus 3.1 Magnesium 2.0 Total Bilirubin 0.5 AST 21 ALT 47 Alkaline Phosphatase 70 Total Protein 7.0 D Albumin 2.5 L 05/14/18 05/14/18 17:11 18:24 Sodium Potassium 3.5 Chloride Carbon Dioxide Anion Gap BUN Creatinine Estimated GFR POC Glucose 146 H Random Glucose Calcium Phosphorus Magnesium Total Bilirubin AST ALT Alkaline Phosphatase Total Protein Albumin Imaging: ITS Impressions Head CT 04/27/18 11:31 CONCLUSION: 1. Negative CT Head non contrast. . Abdomen/Pelvis CT 04/27/18 11:35 CONCLUSION: 1. Extensive atelectasis in both lower lobes. 2. The Stone catheter needs to be deflated and advanced into the bladder. The catheter is at the level of the prosthetic urethra. 3. No findings to indicate a bowel obstruction are seen. No free air free fluid is identified. Chest CT 04/27/18 11:35 CONCLUSION: 1. Consolidation both posterior lungs with air bronchograms. This could represent bilateral pneumonia or aspiration. Cervical Spine CT 04/27/18 11:36 CONCLUSION: 1. Negative trauma study. Lumbar Spine CT 04/27/18 11:59 CONCLUSION: 1. Negative for acute process 2. There is no evidence for vertebral compression. Head MRI 04/29/18 07:05 CONCLUSION: 1. Negative MRI of the brain. 2. Inflammatory process cannot be entirely excluded. 3. There are no infarcts identified. Venous Doppler Study 05/12/18 00:00 CONCLUSION: 1. The exam demonstrates thrombosis of the posterior tibial vein within the calf bilaterally. Chest X-Ray 05/14/18 06:00 CONCLUSION: 1. Interval improvement in prior hazy opacity in the left lung. 2. Interval increase in hazy opacity throughout the right lung. This may represent posterior layering effusion. Abdomen X-Ray 05/14/18 13:26 CONCLUSION: Weighted feeding tube tip in satisfactory position. Additional advancement may allow the tube to migrate into the small bowel Physical Exam: GENERAL: NAD sedated int'd and on vent SKIN: Warm and dry. no rash. HEAD: Atraumatic. Normocephalic. EYES: Face mildly edematous ENT: orally intubated NECK: Trachea midline. No JVD. CARDIOVASCULAR: RRR no murmurs well perfused periphery RESPIRATORY: clear GASTROINTESTINAL: soft abdomen not tender not disteded dignishield in place with light brown stool MUSCULOSKELETAL: Extremities without clubbing, cyanosis, + 2 edema. NEUROLOGICAL: sedated PSYCHIATRIC: unable to assess Assessment and Plan - Plan Sepsis ongoing possible new. PNA, probably aspiration Acute VDRF on rotaprone bed. MSSA pneumonia. GNR pneumonia: Kleb, Enterobacter Morbid obesity with likely obesity- hypoventilation sd Coag neg staph bacteremia, low grade doubt clin significance New fever Leukocytosis diarrhea, c.diff egative Recs: cont Ceftriaxone + oxacillin chk new blood clx cultures UA, C+S Follow clinical course. dw family dw RN @ b/s
[2018-05-14] MEDS: Multivitamin Inj 10 ML, Folic Acid Inj 1 MG in AA 4.25 %/D5W - Electrolytes 2,000 ML IV.SIG SCH (22:14)
[2018-05-15] MEDS: Insulin NovoLOG Aspart Correctional Sugar Inj SQ SCH ×4 (00:05→19:36)
[2018-05-15] MEDS: Propofol 1000 mg/100 ml Inj 1,000 MG/100 ML BOTTLE IV.CONT PRN ×11 (00:52→21:13)
[2018-05-15] MEDS: Midazolam 50 MG/50 ML Inj 50 MG/50 ML BAG IV.CONT PRN ×4 (01:45→19:25)
[2018-05-15] MEDS: Artificial Tears Opth Drops 15 ML Bottle EACH EYE SCH ×3 (02:08→17:35)
[2018-05-15] MEDS: fentaNYL 10 mcg/mL Premix Drip 2,500 MCG/250 ML BAG IV.SIG PRN ×4 (04:04→19:33)
[2018-05-15] MEDS: Dexmedetomidine Inj 1,000 MCG in Sodium Chlor 0.9% Inj 240 ML IV.CONT PRN ×3 (04:44→19:20)
[2018-05-15 05:14] LABS: Hematocrit 27.5 % (39.0-51.0); Mean Corpuscular Volume 90.8 fL (80.0-100.0); Mean Platelet Volume 8.9 fL (7.0-11.0); Platelet Count 227 th/mm3 (150-450); Red Blood Count 3.03 mil/mm3 (4.50-5.90); Red Cell Distribution Width 15.8 % (11.6-17.2); White Blood Count 14.8 th/mm3 (4.0-11.0)
[2018-05-15] MEDS: MethylPREDNISolone Sod Succinate Inj 40 MG/ML Vial IV.PUSH SCH ×3 (05:17→21:14)
[2018-05-15 05:23] LABS: Mean Corpuscular HGB Conc 36.3 % (32.0-36.0)
[2018-05-15 05:36] LABS: Alanine Aminotransferase 48 U/L (9-52); Albumin 2.2 g/dL (3.4-5.0); Alkaline Phosphatase 55 U/L (45-117); Anion Gap 12 meq/L (5-15); Aspartate Aminotransferase 28 U/L (15-39); Blood Urea Nitrogen 18 mg/dL (7-18); Calcium 6.7 mg/dL (8.5-10.1); Carbon Dioxide 21.4 meq/L (21.0-32.0); Chloride 103 meq/L (98-107); Glomerular Filtration Rate Greater Than 89 mL/min (>89); Glucose,Random 149 mg/dL (74-106); Magnesium 1.9 mg/dL (1.5-2.5); Phosphorus 3.8 mg/dL (2.5-4.9); Potassium 3.2 meq/L (3.5-5.1); Sodium 136 meq/L (136-145)
[2018-05-15] MEDS: EPOPROSTENOL NEB SCH (05:39)
[2018-05-15] MEDS: SODIUM CHLOR NEB SCH (05:39)
[2018-05-15 05:40] LABS: Total Protein 6.5 g/dL (6.4-8.2)
[2018-05-15] MEDS ORDERED: Calcium Chloride Inj 1 GM in Dextrose 5% in Water Inj 100 ML IV.SIG ONE ×2 (08:00)
[2018-05-15] MEDS: Polyethylene Glycol 3350 17 GM Packet PO SCH ×2 (08:21→20:00)
[2018-05-15] MEDS: Enoxaparin Inj 40 MG/0.4 ML Syringe SQ SCH ×2 (08:24→20:01)
[2018-05-15 08:25] LABS: Lymphocytes 18 % (9-44); Myelocytes 1 % (0-0); Plasma Cells 1 % (0-0)
[2018-05-15] MEDS: Pantoprazole Inj 40 MG Vial IV.PUSH SCH (08:25)
[2018-05-15] MEDS: Heparin Central Flush 100 UNIT/ML 5 ML Vial IV.FLUSH SCH (08:25)
[2018-05-15] MEDS: Metoprolol Tartrate 50 MG Tablet PO SCH ×3 (08:25→17:32)
[2018-05-15] MEDS: Senna/Docusate Sodium 8.6/50 MG Tablet PO SCH ×2 (08:25→20:00)
[2018-05-15 08:27] LABS: Platelet Estimate Normal (Normal); Platelet Morphology Normal (Normal)
[2018-05-15] MEDS: QUEtiapine 25 MG Tablet PO SCH ×2 (09:00→21:17)
[2018-05-15] MEDS ORDERED: Multivitamin w/Vit C Drops 50 ML Bottle NG/OG SCH (09:00)
--- NOTE | 2018-05-15 10:06 | P.PNCC ---
Subjective Subjective Remarks/Hospital Course: Patient is approximately 22 years old male obese, was found on the floor by a family member, downtime is unknown. EMS was called, patient was given Narcan with no response, he was intubated on the scene, apparently GCS 3. Found bag of PCP next to the patient. Patient has history of psychiatric disorder ? bipolar disorder and I am told he has attempted suicide in the past. There is also mention about suspicion of ethylene glycol ingestion, but his serum osmolality is 307 his osmolar gap is only 13. Bicarb is 26, ethylene glycol seems unlikely. Ethanol was negative urine drug screen only positive for benzo. I evaluated the patient in the ICU at the [facility]. Patient had a CT of the head which was negative. Rest of the workup unremarkable except for bibasilar atelectasis/aspiration pneumonia. Patient's white count is elevated at 17.1, glucose is 232 lactic acid was 2.8. He received multiple fluid boluses. At this time he is not on any sedation but remains unresponsive no response to deep pain 04/28 Patient remains intubated off sedation unresponsive. Afebrile. 04/29: MRI of the brain revealed no acute intracranial findings. EEG to be performed tomorrow. More arousable and moves all 4 extremities but not following commands. Placed on dexamethasone E drip. 2 feeds will be restarted 04/30: T-max 101.4. Currently afebrile. No bowel movement since admission. Arousable and follows simple commands late last night but currently on sedation for agitation. Increased FiO2 noted. Will attempt to gently diurese and continue antibiotics for pansensitive staph aureus/group a beta strep sputum 05/01 Patient is sedated with Fentanyl, Diprivan and intubated. T:101.1 at 5am. Placed on APRV overnight. 05/02 Patient is sedated with Diprivan and Fentanyl drips. Tmax 101.3, on PC/AC with PEEP:12, FIO2 80%, IP:30 05/03 Patient is heavily sedated with Diprivan, Fentanyl and Versed . On PC/AC with PEEP: 14 and FIO2 100$ sats 92%, CXR yesterday showed diffuse b/l pulm infiltrates, started on Flolan nebs. Had Tmax 102.6 last night. 05/04 Patient was placed on rotoprone bed yesterday sedated with Diprivan, Versed and Fentanyl infusion and on neuromuscular blockade( Nimbex) On PC/AC His FIO2 requirements is better now on FIO2:50% from 100% with PEEP:14. T:102.6 05/05 Patient remains intubated and sedated on Bumex drio0.5mg/hr, T:99.7 at 3am. On PC/AC with PEEP:1 and FIO2 60%- sats 95%. 05/06 Patient remains sedated and intubated on rotoprone bed with improvements in his oxygenation. Now on PC/AC with PEEP:10, FIO2 40%. Afebrile. On Bumex drip 0.5mg/hr. 05/07 Patient remains on rotoprone bed sedated and on Nimbex drip. He is also on Bumex drip 0.5mg/hr with good urine output . 05/08 Patient remains sedated and intubated. On Flolan, and Bumex drip. Afebrile. 05/09 Patient desat overnight now on PC/AC with PEEP:10 and FIO2 100% sats 96%. Had T: 100.4 at midnight. Sputum cx 05/07 GNR. Remains sedated on Flolan and Bumex drip. 05/10: Resting in bed. Remains on PC/AC rate increased to 16. FiO2 80%. Low- grade fevers noted. Remains on epoprostenol and bumetanide drips. Hypertension noted. Aspirated this a.m. and so discontinued tube feeding. We will start PPN today. 05/11 Patient remains on rotoprone bed, sedated and intubated. Afebrile. On PC/ AC with PEEP;10 and FIO2 55%.On Flolan and Bumex drip 0.5mg/hr 05/12 Remains sedated, intubated and on Rotoprone bed. PC/AC with PEEP: 12 and FIO2 70% sats 96%. T:100.4 last night. On Flolan and Bumex drip. 05/14: Off rotaprone since yesterday, nimbex discontinued, PEEP 14 and FiO2 50% with sats in mid 90s. Still on flolan. 05/15: No acute issues overnight, plan is to wean PEEP slowly over the weekend for tracheostomy on Friday 05/18. Objective Vital Signs / I&O: Vital Signs 05/14/18 10:30 05/14/18 11:00 05/14/18 11:01 Temperature 101.8 F H 101.8 F H 101.8 F H Pulse Rate 90 93 H 93 H Respiratory Rate Blood Pressure 159/91 H 163/75 H Pulse Oximetry 91 L 91 L 91 L 05/14/18 11:25 05/14/18 11:31 05/14/18 12:00 Temperature 101.7 F H 101.7 F H Pulse Rate 88 94 H 93 H Respiratory Rate 16 Blood Pressure 116/63 119/66 Pulse Oximetry 94 L 95 96 05/14/18 12:30 05/14/18 13:00 05/14/18 13:01 Temperature 101.7 F H Pulse Rate 94 H 99 H 101 H Respiratory Rate Blood Pressure 111/63 105/57 L Pulse Oximetry 94 L 93 L 92 L 05/14/18 13:30 05/14/18 14:00 05/14/18 14:30 Temperature 101.7 F H 101.8 F H 101.5 F H Pulse Rate 93 H 96 H 100 H Respiratory Rate Blood Pressure 112/69 115/66 110/60 Pulse Oximetry 95 92 L 93 L 05/14/18 15:00 05/14/18 15:31 05/14/18 15:38 Temperature 101.3 F H 101.1 F H Pulse Rate 97 H 101 H 103 H Respiratory Rate 16 Blood Pressure 118/73 106/58 L Pulse Oximetry 93 L 94 L 94 L 05/14/18 16:00 05/14/18 16:53 05/14/18 17:00 Temperature 101.1 F H 100.6 F H 100.4 F H Pulse Rate 97 H 96 H 93 H Respiratory Rate Blood Pressure 117/69 125/74 126/71 Pulse Oximetry 93 L 91 L 92 L 05/14/18 17:30 05/14/18 19:23 05/14/18 20:00 Temperature 100.6 F H 103.0 F H Pulse Rate 87 92 H 96 H Respiratory Rate 16 16 Blood Pressure 120/72 126/62 Pulse Oximetry 92 L 93 L 92 L 05/14/18 23:33 05/15/18 00:00 05/15/18 04:00 Temperature 101.1 F H 101.7 F H Pulse Rate 86 87 93 H Respiratory Rate 16 16 16 Blood Pressure 134/63 121/63 Pulse Oximetry 94 L 94 L 05/15/18 04:09 05/15/18 07:54 Temperature Pulse Rate 92 H 88 Respiratory Rate 16 16 Blood Pressure Pulse Oximetry 94 L 92 L Intake & Output 05/14/18 05/15/18 05/15/18 18:59 06:59 18:59 Intake Total 4087 / 4087 3079 / 3079 100 / 100 Output Total 3135 / 3135 4650 / 4650 Balance 952 / 952 -1571 / -1571 100 / 100 Weight 168 kg Intake: IV 3647 / 3647 2500 / 2500 100 / 100 Bumex Inj 25 mg In 100 ml @ 0.5 100 / 100 MG/HR 2 mls/hr IV.CONT .Q24H [facility] Rx#:[id number] Precedex Inj 1,000 MCG In NS 250 / 250 500 / 500 Inj 240 ML @ 0.2 MCG/KG/HR 8.4 mls/hr IV.CONT TITRATE PRN Rx#: [id number] Versed Inj 50 mg In 50 ml @ 2 150 / 150 150 / 150 MG/HR 2 mls/hr IV.CONT TITRATE PRN Rx#:[id number] Diprivan 1000 mg/100 ml Inj 1, 500 / 500 600 / 600 100 / 100 000 mg In 100 ml @ 5 MCG/KG/MIN 4.77 mls/hr IV.CONT TITRATE PRN Rx#:[id number] MVI-12 Inj 10 ML Folvite Inj 1 1547 / 1547 MG In Clinimix E 4.25%/D5W Inj 2,000 ML @ 83 mls/hr IV.SIG Q24H [facility] Rx#:[id number] Prostaphlin Inj 2 GM In NS Inj 300 / 300 300 / 300 100 ML @ 200 mls/hr IV.SIG Q4H [facility] Rx#:[id number] KCl 40 mEq Premix Inj 40 meq In 200 / 200 100 ml @ 25 mls/hr IV.SIG Q2H PRN Rx#:[id number] Rocephin Inj 2,000 MG In NS Inj 100 / 100 100 ML @ 200 mls/hr IV.SIG Q24H [facility] Rx#:[id number] fentaNYL 10 mcg/mL Premix Drip 500 / 500 750 / 750 2,500 mcg In 250 ml @ 50 MCG/HR 5 mls/hr IV.SIG TITRATE PRN Rx #:[id number] Flolan (30,000 ng/mL) Neb 90 ML 100 / 100 100 / 100 In NS Inj 10 ML @ 5 mls/hr NEB Q8H [facility] Rx#:[id number] Tube Feeding 179 / 179 Tube Irrigant 180 / 180 Water Bolus Amount 250 / 250 400 / 400 Output: Stool 60 / 60 600 / 600 Urine Amount (Catheter) 3075 / 3075 4050 / 4050 Indwelling Urethral Catheter 3075 / 3075 4050 / 4050 Other: Date of Last Bowel Movement 05/15/18 05/15/18 Result Diagrams: 05/15/18 04:43 05/15/18 04:43 Objective Remarks: GENERAL: Patient is 22 yo intubated . SKIN: Warm and dry. No rash HEAD: Normocephalic. EYES: No scleral icterus. No injection or drainage. NECK: Supple, trachea midline. No JVD or lymphadenopathy. CARDIOVASCULAR: tachy, rr. without murmurs, gallops, or rubs. RESPIRATORY: Breath sounds equal bilaterally. No accessory muscle use. GASTROINTESTINAL: Abdomen soft, non-tender, nondistended. MUSCULOSKELETAL: No significant peripheral edema. Neuro: intubated, currently on Nimbex drip. Assessment and Plan - Assessment and Plan Plan: NEURO/PSYCH: Acute metabolic encephalopathy Suspected PCP overdose Suspected ethylene glycol overdose Suicide attempt -Still requiring high levels of sedation to prevent vent dyssynchrony-- currently on precedex, propofol, versed, fentanyl, and is getting scheduled seroquel and oxycodone. Easily arousable with even small decrease in sedation. -Psychiatric consult after neurological recovery, previously on Wellbutrin. -CT of the head negative. MRI of brain negative. -EEG 04/30 and follow-up EEG 04/28 with no epileptic activity -Ammonia level: 21 RESP: Acute hypoxemic respiratory failure Severe ARDS on Prone therapy Bibasilar aspiration pneumonitis Tobacco abuse -Continue with vent support keep sats >92% -On PC/AC RR16, PEEP 14 and FiO2 50%, wean FiO2 and PEEP as tolerated -Ventilator bundle. Bronchodilators (ipratropium/albuterol, Q4), Solumedrol 40mg Q8 -Start to wean flolan ( 20,000 ng/ml) s/p bronch 05/02 thick secretions suctioned to clear. No evidence of EBL or bleeding. Nicotine patch 21 mg daily -Tentative plan for trach early next week if able to wean PEEP over the weekend CV: Essential hypertension -Monitor HR and BP keep MAP>65mmHg -On Lopressor 50mg TID -Echo 04/28: EF 60-65%, PASP 36mmHg GI: Elevated ALT Hypoalbuminemia - IV famotidine. On PPN -Dobhoff placed yesterday, tolerating trickle TFs, continue to advance with hopes of stopping PPN once tolerating goal feeds x >24hrs -Docusate serum/senna 1 tablet twice daily for bowel regimen. Lactulose 30 cc twice daily and MiraLAX 17 g twice daily. -free water 250ml Q12 Renal/FEN/: -Monitor renal function, I/O's, electrolytes replacement as needed -Continue Bumex drip at 0.5 mg/h to diuresis to dry weight due to severe ARDS, patient's urine output was >9L yesterday ID: MSSA/group A beta strep pneumonia Superadded Enterobacter/Klebsiella ammonia Abx per ID- On Rocephin and Oxacillin- monitor for signs of infection 05/07 Sputm cx: andrews-sensitive Kleb pneumonia, Enterobacter. Repeat cultures sent yesterday. 04/27 Sputum: Staph aureus/MSSA and beta strep not group A. 05/03 BC: Coag neg staph 05/02 bronch cx: Staph Aureus ID is following HEME: Normocytic anemia Leukocytosis -Monitor CBC, coags -Persistent leukocytosis due to sepsis and steroid use ENDO/FEN: Hyperglycemia -Electrolyte replacement per protocol -Sliding scale insulin PROPH: GI prophylaxis- On Pepcid DVT prophylaxis- Lovenox 40mg SQ BID b/l LE thrombus of posterior veins within calf while on Heparin SQ -switched to Lovenox 40mg SQ BID giving his weight. Doppler US LE: thrombosis of the posterior tibial vein within the calf bilaterally. Check follow-up ultrasound on Friday 05/18 to eval for progression LINES: -Utilize peripheral IVs, [facility] central line placed in ED 04/27-d/janina. PICC placed on 05/08/18 I updated the patient's father at the bedside at length today. Counseling/ Coordination of Care: This patient is critically ill with impairment of one or more vital organ systems with a high probability of imminent or life-threatening deterioration. High-complexity medical decision making was required to support vital organ function and/ or prevent deterioration in the patient's condition. Total critical care time spent is 52 minutes giving full attention to this patient. This includes examining the patient, gathering history from someone other than the patient (i.e. chart review), discussing the patient's care with other providers, managing the patient's blood pressure and ventilator settings, ordering and interpreting radiologic studies, ordering and interpreting laboratory values, managing the patient's sedation requirements, re-evaluation at frequent intervals, and documentation. Amount of time is separate from teaching, counseling the patient and/or family, and exclusive of procedures. To help prompt me to consider important information that might be impacting today's encounter and assessment, information from prior notes written by myself or my colleagues may have been "brought forward" into today's note. My signature on this note, however, is an attestation that I personally performed the exam, history, and/or decision-making noted today, and, unless otherwise indicated, the interactions with patient, family, and staff as well as the review of records all occurred today. I also attest that the listed assessment and stated plan reflect my best clinical judgment today based on the combination of historical information, prior notes, and today's exam/ interactions. Code Status: Full
[2018-05-15] MEDS ORDERED: SODIUM CHLOR 0.9% NEB SCH ×2 (11:00)
[2018-05-15] MEDS ORDERED: EPOPROSTENOL NEB SCH ×2 (11:00)
--- NOTE | 2018-05-15 11:45 | P.PNGS ---
Subjective Interval history: DAILY PROGRESS NOTE FOR SURGICAL ATTENDING, DR. JAYY MELGAR Intubated/Sedated No acute events overnight Physical Exam Vital signs: Vital Signs 05/14/18 12:00 05/14/18 12:30 05/14/18 13:00 Temperature 101.7 F H 101.7 F H Pulse Rate 93 H 94 H 99 H Respiratory Rate Blood Pressure 119/66 111/63 Pulse Oximetry 96 94 L 93 L 05/14/18 13:01 05/14/18 13:30 05/14/18 14:00 Temperature 101.7 F H 101.8 F H Pulse Rate 101 H 93 H 96 H Respiratory Rate Blood Pressure 105/57 L 112/69 115/66 Pulse Oximetry 92 L 95 92 L 05/14/18 14:30 05/14/18 15:00 05/14/18 15:31 Temperature 101.5 F H 101.3 F H 101.1 F H Pulse Rate 100 H 97 H 101 H Respiratory Rate Blood Pressure 110/60 118/73 106/58 L Pulse Oximetry 93 L 93 L 94 L 05/14/18 15:38 05/14/18 16:00 05/14/18 16:53 Temperature 101.1 F H 100.6 F H Pulse Rate 103 H 97 H 96 H Respiratory Rate 16 Blood Pressure 117/69 125/74 Pulse Oximetry 94 L 93 L 91 L 05/14/18 17:00 05/14/18 17:30 05/14/18 19:23 Temperature 100.4 F H 100.6 F H Pulse Rate 93 H 87 92 H Respiratory Rate 16 Blood Pressure 126/71 120/72 Pulse Oximetry 92 L 92 L 93 L 05/14/18 20:00 05/14/18 23:33 05/15/18 00:00 Temperature 103.0 F H 101.1 F H Pulse Rate 96 H 86 87 Respiratory Rate 16 16 16 Blood Pressure 126/62 134/63 Pulse Oximetry 92 L 94 L 05/15/18 04:00 05/15/18 04:09 05/15/18 07:54 Temperature 101.7 F H Pulse Rate 93 H 92 H 88 Respiratory Rate 16 16 16 Blood Pressure 121/63 Pulse Oximetry 94 L 94 L 92 L 05/15/18 11:22 Temperature Pulse Rate 92 H Respiratory Rate 16 Blood Pressure Pulse Oximetry 95 Intake & Output 05/14/18 05/15/18 05/15/18 18:59 06:59 18:59 Intake Total 4087 / 4087 3079 / 3079 250 / 250 Output Total 3135 / 3135 4650 / 4650 Balance 952 / 952 -1571 / -1571 250 / 250 Weight 168 kg Intake: IV 3647 / 3647 2500 / 2500 250 / 250 Bumex Inj 25 mg In 100 ml @ 0.5 100 / 100 MG/HR 2 mls/hr IV.CONT .Q24H [facility] Rx#:[id number] Precedex Inj 1,000 MCG In NS 250 / 250 500 / 500 Inj 240 ML @ 0.2 MCG/KG/HR 8.4 mls/hr IV.CONT TITRATE PRN Rx#: [id number] Versed Inj 50 mg In 50 ml @ 2 150 / 150 150 / 150 50 / 50 MG/HR 2 mls/hr IV.CONT TITRATE PRN Rx#:[id number] Diprivan 1000 mg/100 ml Inj 1, 500 / 500 600 / 600 200 / 200 000 mg In 100 ml @ 5 MCG/KG/MIN 4.77 mls/hr IV.CONT TITRATE PRN Rx#:[id number] MVI-12 Inj 10 ML Folvite Inj 1 1547 / 1547 MG In Clinimix E 4.25%/D5W Inj 2,000 ML @ 83 mls/hr IV.SIG Q24H [facility] Rx#:[id number] Prostaphlin Inj 2 GM In NS Inj 300 / 300 300 / 300 100 ML @ 200 mls/hr IV.SIG Q4H [facility] Rx#:[id number] KCl 40 mEq Premix Inj 40 meq In 200 / 200 100 ml @ 25 mls/hr IV.SIG Q2H PRN Rx#:[id number] Rocephin Inj 2,000 MG In NS Inj 100 / 100 100 ML @ 200 mls/hr IV.SIG Q24H [facility] Rx#:[id number] fentaNYL 10 mcg/mL Premix Drip 500 / 500 750 / 750 2,500 mcg In 250 ml @ 50 MCG/HR 5 mls/hr IV.SIG TITRATE PRN Rx #:[id number] Flolan (30,000 ng/mL) Neb 90 ML 100 / 100 100 / 100 In NS Inj 10 ML @ 5 mls/hr NEB Q8H [facility] Rx#:[id number] Tube Feeding 179 / 179 Tube Irrigant 180 / 180 Water Bolus Amount 250 / 250 400 / 400 Output: Stool 60 / 60 600 / 600 Urine Amount (Catheter) 3075 / 3075 4050 / 4050 Indwelling Urethral Catheter 3075 / 3075 4050 / 4050 Other: Date of Last Bowel Movement 05/15/18 05/15/18 Narrative: Intubated/Sedated Resp: course breath sounds bilaterally Abd: Soft - Urinary Catheter Management Indwelling Urethral Catheter Cath placed during this visit: yes, but has since been removed by the nurse Reason for continuing: Acute urinary retention Insertion date: 04/30/18 Insertion time: 18:00 Removal date: 04/28/18 Removal time: 18:45 Straight Cath placed during this visit: yes, but has since been removed by the nurse Reason for continuing: Acute urinary retention Insertion date: 04/30/18 Insertion time: 05:00 Removal date: 04/30/18 Removal time: 05:00 Results - Labs 05/15/18 04:43 05/15/18 04:43 Laboratory Results - last 24 hr 11/05/14/18 05/14/18 12:04 17:11 18:24 WBC RBC Hgb Hct MCV MCH MCHC RDW Plt Count MPV Prelim Diff (Auto) WBC Differential Seg Neuts % (Manual) Band Neuts % (Manual) Lymphocytes % (Manual) Myelocytes % (Man) Plasma Cell % (Manual) Abs Neuts (Manual) Differential Comment Platelet Estimate Platelet Morphology Sodium Potassium 3.5 Chloride Carbon Dioxide Anion Gap BUN Creatinine Estimated GFR POC Glucose 128 H 146 H Random Glucose Calcium Prot Corrected Calcium Phosphorus Magnesium Total Bilirubin AST ALT Alkaline Phosphatase Total Protein Albumin 05/14/18 05/15/18 05/15/18 23:37 04:43 04:43 WBC 14.8 H RBC 3.03 L Hgb 10.0 L Hct 27.5 L MCV 90.8 MCH 33.0 MCHC 36.3 H RDW 15.8 Plt Count 227 D MPV 8.9 Prelim Diff (Auto) Manual diff required WBC Differential Manual diff final Seg Neuts % (Manual) 73 H Band Neuts % (Manual) 7 H Lymphocytes % (Manual) 18 Myelocytes % (Man) 1 H Plasma Cell % (Manual) 1 H Abs Neuts (Manual) 12.0 H Differential Comment . Platelet Estimate Normal Platelet Morphology Normal Sodium 136 Potassium 3.2 L Chloride 103 Carbon Dioxide 21.4 Anion Gap 12 BUN 18 Creatinine 0.54 L Estimated GFR Greater than 89 POC Glucose 153 H Random Glucose 149 H Calcium 6.7 L* D Prot Corrected Calcium 7.0 L* Phosphorus 3.8 Magnesium 1.9 Total Bilirubin 0.9 AST 28 ALT 48 Alkaline Phosphatase 55 Total Protein 6.5 Albumin 2.2 L 05/15/18 05:11 WBC RBC Hgb Hct MCV MCH MCHC RDW Plt Count MPV Prelim Diff (Auto) WBC Differential Seg Neuts % (Manual) Band Neuts % (Manual) Lymphocytes % (Manual) Myelocytes % (Man) Plasma Cell % (Manual) Abs Neuts (Manual) Differential Comment Platelet Estimate Platelet Morphology Sodium Potassium Chloride Carbon Dioxide Anion Gap BUN Creatinine Estimated GFR POC Glucose 139 H Random Glucose Calcium Prot Corrected Calcium Phosphorus Magnesium Total Bilirubin AST ALT Alkaline Phosphatase Total Protein Albumin - Imaging Imaging: ITS Impressions Head CT 04/27/18 11:[address]: [address] Head non contrast. . Abdomen/Pelvis CT 04/27/18 11:35 CONCLUSION: 1. Extensive atelectasis in both lower lobes. 2. The Stone catheter needs to be deflated and advanced into the bladder. The catheter is at the level of the prosthetic urethra. 3. No findings to indicate a bowel obstruction are seen. No free air free fluid is identified. Chest CT 04/27/18 11:35 CONCLUSION: 1. Consolidation both posterior lungs with air bronchograms. This could represent bilateral pneumonia or aspiration. Cervical Spine CT 04/27/18 11:36 CONCLUSION: 1. Negative trauma study. Lumbar Spine CT 04/27/18 11:59 CONCLUSION: 1. Negative for acute process 2. There is no evidence for vertebral compression. Head MRI 04/29/18 07:05 CONCLUSION: 1. Negative MRI of the brain. 2. Inflammatory process cannot be entirely excluded. 3. There are no infarcts identified. Venous Doppler Study 05/12/18 00:00 CONCLUSION: 1. The exam demonstrates thrombosis of the posterior tibial vein within the calf bilaterally. Chest X-Ray 05/14/18 06:00 CONCLUSION: 1. Interval improvement in prior hazy opacity in the left lung. 2. Interval increase in hazy opacity throughout the right lung. This may represent posterior layering effusion. Abdomen X-Ray 05/14/18 13:26 CONCLUSION: Weighted feeding tube tip in satisfactory position. Additional advancement may allow the tube to migrate into the small bowel Assessment and Plan - Assessment (1) Respiratory failure Code(s): J96.90 - Respiratory failure, unspecified, unspecified whether with hypoxia or hypercapnia Status: Acute Plan: 22 year old male with overdose; aspiration; ventilator dependent respiratory failure in need of tracheostomy tube placement. -Patient still on 50% and 14 of PEEP -Vent settings remain too high for trach placement at this time -General Surgery will see PRN over the weekend -I will see again Friday to plan for trach placement in OR next week - Attending Attestation NOTE FOR SURGICAL ATTENDING, DR. JAYY MELGAR I agree with above assessment and plan. The exam, history, and the medical decision-making described in the above note were completed with the assistance of the mid-level provider. I reviewed and agree with the findings presented. I attest that I had a [id number] encounter with the patient on the same day, and personally performed and documented my assessment and findings in the medical record. The following services were provided during this hospital visit: Chart data review, vital sign assessments/reviewing monitor data Review of consultations notes if present. Medication orders/review and/or management Ordering and/or reviewing lab tests Ordering and/or interpreting/reviewing x-rays and/or diagnostic studies Care of the patient and discussion of the patient with the care team Documentation time To help prompt me to consider important information that might be impacting today's encounter and assessment, Information from prior notes written by myself or my colleagues may have been "brought forward/copy and pasted" into today's note.
[2018-05-15] MEDS: Potassium Chloride 25 MEQ Effervescent Tablet PO PRN (17:32)
--- NOTE | 2018-05-15 18:31 | P.PNNEU ---
Subjective Subjective Comments: No acute events. Patient mom at bedside. States that try to communicate with her earlier today Active Medications: Active Medications Acetaminophen (Tylenol Liq) 650 mg PO Q6H PRN PRN Reason: FEVER Last Admin: 05/15/18 02:05 Dose: 650 mg Al Hydroxide/Mg Hydroxide (Milk Of Magnesia Liq) 30 ml PO Q12H PRN PRN Reason: Mild Constipation Albuterol (Albuterol Neb (Prn)) 2.5 mg NEB Q2HR NEB PRN PRN Reason: SHORTNESS OF BREATH/WHEEZING Last Admin: 05/15/18 14:46 Dose: 2.5 mg Artificial Tears (Tears Naturale Opth Drops) 1 drop EACH EYE Q8H [facility] Last Admin: 05/15/18 17:35 Dose: 1 drop Bisacodyl (Dulcolax Supp) 10 mg RECTAL DAILY PRN PRN Reason: SEVERE CONSITIPATION Dextrose (D50w Vial) 50 ml IV.PUSH UNSCH PRN PRN Reason: PER HYPOGLYCEMIA PROTOCOL Enoxaparin Sodium (Lovenox Inj) 40 mg SQ Q12HR [facility] Last Admin: 05/15/18 08:24 Dose: 40 mg Glucagon (Glucagon Inj) 1 mg OTHER PRN PRN PRN Reason: for Hypoglycemia Protocol Haloperidol Lactate (Haldol Inj) 5 mg IV.PUSH Q6H PRN PRN Reason: breakthrough agitation Last Admin: 05/13/18 23:19 Dose: 5 mg Heparin Sodium (Porcine) (Heparin Central Flush) 0 unit IV.FLUSH DAILY [facility] Last Admin: 05/15/18 08:25 Dose: Not Given Heparin Sodium (Porcine) (Heparin Central Flush) 0 unit IV.FLUSH PRN PRN PRN Reason: Flush PICC Line Hydralazine HCl (Apresoline Inj) 10 mg IV.PUSH Q1H PRN PRN Reason: SBP>160, DBP>90 Magnesium Sulfate 4 gm/ Sodium (Chloride) 100 mls @ 50 mls/hr IV.SIG UNSCH PRN PRN Reason: For Magnesium 0.9 - 1.1 mg/dL Potassium Chloride (Kcl 40 Meq Premix Inj) 40 meq in 100 mls @ 25 mls/hr IV.SIG Q2H PRN PRN Reason: For Potassium 2.8 - 3.2 mEq/L Last Infusion: 05/14/18 15:15 Dose: Infused Potassium Chloride (Kcl 20 Meq Premix Inj) 20 meq in 100 mls @ 50 mls/hr IV.SIG Q2H PRN PRN Reason: For Potassium 3.3 - 3.5 mEq/L Potassium Chloride (Kcl 40 Meq Premix Inj) 40 meq in 100 mls @ 25 mls/hr IV.SIG UNSCH PRN PRN Reason: For Potassium 3.3 - 3.5 mEq/L Last Infusion: 05/11/18 12:53 Dose: Infused Potassium Chloride (Kcl 20 Meq Premix Inj) 20 meq in 100 mls @ 50 mls/hr IV.SIG Q2H PRN PRN Reason: For Potassium 2.8 - 3.2 mEq/L Potassium Phosphate 30 mmol/ (Sodium Chloride) 260 mls @ 42 mls/hr IV.SIG UNSCH PRN PRN Reason: SEE LABEL COMMENTS Magnesium Sulfate 2 gm/ Sodium (Chloride) 100 mls @ 50 mls/hr IV.SIG UNSCH PRN PRN Reason: For Magnesium 1.2 - 1.6 mg/dL Sodium Phosphate 30 mmol/ (Sodium Chloride) 260 mls @ 42 mls/hr IV.SIG UNSCH PRN PRN Reason: For Phosphorus < 2.5 mg/dL Propofol (Diprivan 1000 Mg/100 Ml Inj) 1,000 mg in 100 mls @ 4.77 mls/hr IV.CONT TITRATE PRN; Protocol PRN Reason: Per Protocol Last Admin: 05/15/18 17:32 Dose: 50 mcg/kg/min, 47.7 mls/hr Fentanyl (Fentanyl 10 Mcg/Ml Premix Drip) 2,500 mcg in 250 mls @ 5 mls/hr IV.SIG TITRATE PRN; Protocol PRN Reason: Per Protocol Last Admin: 05/15/18 11:54 Dose: 350 mcg/hr, 35 mls/hr Midazolam HCl (Versed Inj) 50 mg in 50 mls @ 2 mls/hr IV.CONT TITRATE PRN; Protocol PRN Reason: Per Protocol Last Admin: 05/15/18 11:09 Dose: 12 mg/hr, 12 mls/hr Oxacillin Sodium 2 gm/ Sodium (Chloride) 100 mls @ 200 mls/hr IV.SIG Q4H [facility] Last Admin: 05/15/18 17:34 Dose: 200 mls/hr Ceftriaxone Sodium 2,000 mg/ (Sodium Chloride) 100 mls @ 200 mls/hr IV.SIG Q24H [facility] Last Admin: 05/15/18 14:52 Dose: 200 mls/hr Bumetanide (Bumex Inj) 25 mg in 100 mls @ 2 mls/hr IV.CONT .Q24H [facility] Last Admin: 05/14/18 20:04 Dose: 0.5 mg/hr, 2 mls/hr Dexmedetomidine HCl 1,000 mcg/ (Sodium Chloride) 250 mls @ 8.4 mls/hr IV.CONT TITRATE PRN; Protocol PRN Reason: Per Protocol Last Admin: 05/15/18 12:26 Dose: 0.8 mcg/kg/hr, 33.6 mls/hr Multivitamins 10 ml/ Folic Acid 1 mg/ Amino Acids/Electrolytes/Dextrose 2, 010.2 mls @ 83 mls/hr IV.SIG Q24H [facility] Last Admin: 05/14/18 22:14 Dose: Not Given Epoprostenol Sodium 45 ml/ (Sodium Chloride) 100 mls @ 5 mls/hr NEB Q8H [facility] Insulin Aspart (Novolog Insulin Correctional Sugar Inj) 0 unit SQ Q6HR [facility]; Protocol Last Admin: 05/15/18 11:58 Dose: Not Given Labetalol HCl (Trandate Inj) 10 mg IV.PUSH Q1H PRN PRN Reason: Sbp>165, Dbp>90, Hr>65 Lactulose (Lactulose Liq) 30 ml PO DAILY PRN PRN Reason: SEVERE CONSITIPATION Lactulose (Lactulose Liq) 30 ml PO BID [facility] Last Admin: 05/15/18 08:24 Dose: 30 ml Magnesium Oxide (Mag-Ox) 800 mg PO UNSCH PRN PRN Reason: For Magnesium 1.2 - 1.6 mg/dL Methylprednisolone Sodium Succinate (Solumedrol Inj) 40 mg IV.PUSH Q8HR [facility] Last Admin: 05/15/18 13:50 Dose: 40 mg Metoclopramide HCl (Reglan Inj) 5 mg IV.PUSH Q8HR [facility]; Protocol Last Admin: 05/15/18 13:50 Dose: 5 mg Metoprolol Tartrate (Lopressor) 50 mg PO TID [facility] Last Admin: 05/15/18 17:32 Dose: 50 mg Nicotine (Habitrol 21 Mg Patch.24 Hr) 1 patch T-DERMAL DAILY [facility] Last Admin: 05/15/18 08:24 Dose: 1 patch Nitroglycerin (Nitro-Bid 2% Oint) 2 inch TOPICAL Q6HR PRN PRN Reason: Sbp>165, Dbp>90 Ondansetron HCl (Zofran Inj) 4 mg IV.PUSH Q6H PRN PRN Reason: NAUSEA OR VOMITING Oxycodone HCl (Roxicodone Intensol Liq) 5 mg PO Q6H [facility] Last Admin: 05/15/18 17:31 Dose: 5 mg Pantoprazole Sodium (Protonix Inj) 40 mg IV.PUSH DAILY [facility] Last Admin: 05/15/18 08:25 Dose: 40 mg Patch Removal (Remove Old Patch) 1 each T-DERMAL DAILY [facility] Last Admin: 05/15/18 08:26 Dose: 1 each Polyethylene Glycol (Miralax) 17 gm PO BID [facility] Last Admin: 05/15/18 08:21 Dose: 17 gm Potassium Bicarb/Potassium Chloride (K-Lyte Cl Eff) 50 meq PO UNSCH PRN PRN Reason: For Potassium 3.3 - 3.5 mEq/L Last Admin: 05/15/18 17:32 Dose: 50 meq Potassium Phosphate (K-Phos Original) 2,000 mg PO Q4H PRN PRN Reason: Phosphorus Less Than 2.5 mg/dL Potassium Phosphate (K-Phos Original) 2,000 mg PO UNSCH PRN PRN Reason: SEE LABEL COMMENTS Quetiapine Fumarate (Seroquel) 50 mg PO BID [facility] Last Admin: 05/14/18 22:14 Dose: Not Given Senna/Docusate Sodium (Jemima-Colace) 1 tab PO BID [facility] Last Admin: 05/15/18 08:25 Dose: 1 tab Sennosides (Senokot) 17.2 mg PO Q12H PRN PRN Reason: Moderate Constipation Sodium Chloride (Ns Flush) 2 ml IV.FLUSH BID [facility] Last Admin: 05/15/18 08:26 Dose: 2 ml Sodium Chloride (Ns Flush) 2 ml IV.FLUSH PRN PRN PRN Reason: FLUSH AFTER USING IV ACCESS Last Admin: 05/11/18 08:30 Dose: 2 ml Sodium Chloride (Ns Flush) 0 ml IV.FLUSH DAILY [facility] Last Admin: 05/15/18 08:26 Dose: Not Given Sodium Chloride (Ns Flush) 0 ml IV.FLUSH PRN PRN PRN Reason: FLUSH AFTER USING IV ACCESS Sodium Chloride (Ns Flush) 0 ml IV.FLUSH PRN PRN PRN Reason: Flush After Blood Draws Sterile Water (Free Water) 250 ml G-TUBE Q12HR [facility] Last Admin: 05/15/18 08:25 Dose: 250 ml Allergies/Adverse Reactions: Allergies Allergy/AdvReac Type Severity Reaction Status Date / Time shellfish derived Allergy Anaphylaxis Verified 04/29/18 13:12 No Known Allergies Allergy Uncoded 04/29/18 13:12 Review of Systems unobtainable due to endotracheal tube, unobtainable due to mental status Physical Exam Vital signs: Vital Signs 05/14/18 19:23 05/14/18 20:00 05/14/18 23:33 Temperature 103.0 F H Pulse Rate 92 H 96 H 86 Respiratory Rate 16 16 16 Blood Pressure 126/62 Pulse Oximetry 93 L 92 L 05/15/18 00:00 05/15/18 04:00 05/15/18 04:09 Temperature 101.1 F H 101.7 F H Pulse Rate 87 93 H 92 H Respiratory Rate 16 16 16 Blood Pressure 134/63 121/63 Pulse Oximetry 94 L 94 L 94 L 05/15/18 07:54 05/15/18 08:00 05/15/18 11:22 Temperature 100.5 F H Pulse Rate 88 87 92 H Respiratory Rate 16 16 16 Blood Pressure 115/69 Pulse Oximetry 92 L 92 L 95 05/15/18 12:00 05/15/18 14:48 05/15/18 15:42 Temperature 99.5 F Pulse Rate 91 H 89 Respiratory Rate 16 26 H 16 Blood Pressure 117/66 Pulse Oximetry 91 L 96 Intake & Output 05/14/18 05/15/18 05/15/18 18:59 06:59 18:59 Intake Total 4087 / 4087 3079 / 3079 1250 / 1250 Output Total 3135 / 3135 4650 / 4650 Balance 952 / 952 -1571 / -1571 1250 / 1250 Weight 168 kg Intake: IV 3647 / 3647 2500 / 2500 1250 / 1250 Bumex Inj 25 mg In 100 ml @ 0.5 100 / 100 MG/HR 2 mls/hr IV.CONT .Q24H [facility] Rx#:[id number] Precedex Inj 1,000 MCG In NS 250 / 250 500 / 500 250 / 250 Inj 240 ML @ 0.2 MCG/KG/HR 8.4 mls/hr IV.CONT TITRATE PRN Rx#: [id number] Versed Inj 50 mg In 50 ml @ 2 150 / 150 150 / 150 50 / 50 MG/HR 2 mls/hr IV.CONT TITRATE PRN Rx#:[id number] Diprivan 1000 mg/100 ml Inj 1, 500 / 500 600 / 600 500 / 500 000 mg In 100 ml @ 5 MCG/KG/MIN 4.77 mls/hr IV.CONT TITRATE PRN Rx#:[id number] MVI-12 Inj 10 ML Folvite Inj 1 1547 / 1547 MG In Clinimix E 4.25%/D5W Inj 2,000 ML @ 83 mls/hr IV.SIG Q24H [facility] Rx#:[id number] Prostaphlin Inj 2 GM In NS Inj 300 / 300 300 / 300 200 / 200 100 ML @ 200 mls/hr IV.SIG Q4H [facility] Rx#:[id number] KCl 40 mEq Premix Inj 40 meq In 200 / 200 100 ml @ 25 mls/hr IV.SIG Q2H [facility] Rx#:[id number] Rocephin Inj 2,000 MG In NS Inj 100 / 100 100 ML @ 200 mls/hr IV.SIG Q24H [facility] Rx#:[id number] fentaNYL 10 mcg/mL Premix Drip 500 / 500 750 / 750 250 / 250 2,500 mcg In 250 ml @ 50 MCG/HR 5 mls/hr IV.SIG TITRATE PRN Rx #:[id number] Flolan (30,000 ng/mL) Neb 90 ML 100 / 100 100 / 100 In NS Inj 10 ML @ 5 mls/hr NEB Q8H [facility] Rx#:[id number] Tube Feeding 179 / 179 Tube Irrigant 180 / 180 Water Bolus Amount 250 / 250 400 / 400 Output: Stool 60 / 60 600 / 600 Urine Amount (Catheter) 3075 / 3075 4050 / 4050 Indwelling Urethral Catheter 3075 / 3075 4050 / 4050 Other: Date of Last Bowel Movement 05/15/18 05/15/18 Narrative: GENERAL: in NAD, obese SKIN: Warm and dry. HEAD: Atraumatic. Normocephalic. NECK: Intubated CARDIOVASCULAR: Regular rate and rhythm. RESPIRATORY: Intubated MUSCULOSKELETAL: Extremities without clubbing, cyanosis, or edema. No obvious deformities. NEUROLOGICAL: Intubated, on sedation, deep stuporous, nonverbal not following, no gaze deviation, sluggishly reactive pupils, limited exam, prone position PSYCHIATRIC: Calm - Constitutional no acute distress - Routine HEENT Exam Head: Present: normocephalic - Urinary Catheter Management Indwelling Urethral Catheter Cath placed during this visit: yes, but has since been removed by the nurse Reason for continuing: Acute urinary retention Insertion date: 04/30/18 Insertion time: 18:00 Removal date: 04/28/18 Removal time: 18:45 Straight Cath placed during this visit: yes, but has since been removed by the nurse Reason for continuing: Acute urinary retention Insertion date: 04/30/18 Insertion time: 05:00 Removal date: 04/30/18 Removal time: 05:00 Objective Laboratory Results - last 24 hr 05/14/18 05/14/18 05/15/18 18:24 23:37 04:43 WBC 14.8 H RBC 3.03 L Hgb 10.0 L Hct 27.5 L MCV 90.8 MCH 33.0 MCHC 36.3 H RDW 15.8 Plt Count 227 D MPV 8.9 Prelim Diff (Auto) Manual diff required WBC Differential Manual diff final Seg Neuts % (Manual) 73 H Band Neuts % (Manual) 7 H Lymphocytes % (Manual) 18 Myelocytes % (Man) 1 H Plasma Cell % (Manual) 1 H Abs Neuts (Manual) 12.0 H Differential Comment . Platelet Estimate Normal Platelet Morphology Normal Sodium Potassium 3.5 Chloride Carbon Dioxide Anion Gap BUN Creatinine Estimated GFR POC Glucose 153 H Random Glucose Calcium Prot Corrected Calcium Phosphorus Magnesium Total Bilirubin AST ALT Alkaline Phosphatase Total Protein Albumin 05/15/18 05/15/18 05/15/18 04:43 05:11 11:58 WBC RBC Hgb Hct MCV MCH MCHC RDW Plt Count MPV Prelim Diff (Auto) WBC Differential Seg Neuts % (Manual) Band Neuts % (Manual) Lymphocytes % (Manual) Myelocytes % (Man) Plasma Cell % (Manual) Abs Neuts (Manual) Differential Comment Platelet Estimate Platelet Morphology Sodium 136 Potassium 3.2 L Chloride 103 Carbon Dioxide 21.4 Anion Gap 12 BUN 18 Creatinine 0.54 L Estimated GFR Greater than 89 POC Glucose 139 H 162 H Random Glucose 149 H Calcium 6.7 L* D Prot Corrected Calcium 7.0 L* Phosphorus 3.8 Magnesium 1.9 Total Bilirubin 0.9 AST 28 ALT 48 Alkaline Phosphatase 55 Total Protein 6.5 Albumin 2.2 L Microbiology 05/14/18 20:55 Aerobic Blood Culture - Preliminary Blood - Peripheral No growth in 1 day Anaerobic Blood Culture - Preliminary No growth in 1 day 05/14/18 20:46 Aerobic Blood Culture - Preliminary Blood - Peripheral No growth in 1 day Anaerobic Blood Culture - Preliminary No growth in 1 day Review/Management - Diagnosis (1) Toxic encephalopathy Code(s): G92 - Toxic encephalopathy Status: Acute Current Visit: Yes (2) Respiratory failure Code(s): J96.90 - Respiratory failure, unspecified, unspecified whether with hypoxia or hypercapnia Status: Acute Current Visit: Yes (3) Aspiration pneumonia of both lower lobes Code(s): J69.0 - Pneumonitis due to inhalation of food and vomit Status: Acute Current Visit: Yes - Review/Management Plan: Drug-induced encephalopathy. Possible PCP although exact substance in the bag is not known; father thinks he may have overdosed on Sonata in which case he should slowly wake up CT brain negative ARDS, pneumonia ID following mri nml. eeg negative for sz Recommendation limited neuro exam 2/2 sedation Follow exam Discussed patient's mother bedside
--- NOTE | 2018-05-15 18:43 | P.PNID ---
Subjective Remarks: Improved off Rotaprone bed PEEP down to 10 , FiO2 50% minimal secretions low grade fever improved +diarrhea grew andrews S Kleb, Enterobacter Antibiotics: CFTX oxacillin Lines: Line sites ok Past Medical History: reviewed. Allergies/Adverse Reactions: Allergies shellfish derived Allergy (Verified 04/29/18 13:12) Anaphylaxis No Known Allergies Allergy (Uncoded 04/29/18 13:12) Objective Vital Signs 05/14/18 19:23 05/14/18 20:00 05/14/18 23:33 Temperature 103.0 F H Pulse Rate 92 H 96 H 86 Respiratory Rate 16 16 16 Blood Pressure 126/62 Pulse Oximetry 93 L 92 L 05/15/18 00:00 05/15/18 04:00 05/15/18 04:09 Temperature 101.1 F H 101.7 F H Pulse Rate 87 93 H 92 H Respiratory Rate 16 16 16 Blood Pressure 134/63 121/63 Pulse Oximetry 94 L 94 L 94 L 05/15/18 07:54 05/15/18 08:00 05/15/18 11:22 Temperature 100.5 F H Pulse Rate 88 87 92 H Respiratory Rate 16 16 16 Blood Pressure 115/69 Pulse Oximetry 92 L 92 L 95 05/15/18 12:00 05/15/18 14:48 05/15/18 15:42 Temperature 99.5 F Pulse Rate 91 H 89 Respiratory Rate 16 26 H 16 Blood Pressure 117/66 Pulse Oximetry 91 L 96 Intake & Output 05/14/18 05/15/18 05/15/18 18:59 06:59 18:59 Intake Total 4087 / 4087 3079 / 3079 1250 / 1250 Output Total 3135 / 3135 4650 / 4650 Balance 952 / 952 -1571 / -1571 1250 / 1250 Weight 168 kg Intake: IV 3647 / 3647 2500 / 2500 1250 / 1250 Bumex Inj 25 mg In 100 ml @ 0.5 100 / 100 MG/HR 2 mls/hr IV.CONT .Q24H [facility] Rx#:[id number] Precedex Inj 1,000 MCG In NS 250 / 250 500 / 500 250 / 250 Inj 240 ML @ 0.2 MCG/KG/HR 8.4 mls/hr IV.CONT TITRATE PRN Rx#: [id number] Versed Inj 50 mg In 50 ml @ 2 150 / 150 150 / 150 50 / 50 MG/HR 2 mls/hr IV.CONT TITRATE PRN Rx#:[id number] Diprivan 1000 mg/100 ml Inj 1, 500 / 500 600 / 600 500 / 500 000 mg In 100 ml @ 5 MCG/KG/MIN 4.77 mls/hr IV.CONT TITRATE PRN Rx#:[id number] MVI-12 Inj 10 ML Folvite Inj 1 1547 / 1547 MG In Clinimix E 4.25%/D5W Inj 2,000 ML @ 83 mls/hr IV.SIG Q24H [facility] Rx#:[id number] Prostaphlin Inj 2 GM In NS Inj 300 / 300 300 / 300 200 / 200 100 ML @ 200 mls/hr IV.SIG Q4H [facility] Rx#:[id number] KCl 40 mEq Premix Inj 40 meq In 200 / 200 100 ml @ 25 mls/hr IV.SIG Q2H PRN Rx#:[id number] Rocephin Inj 2,000 MG In NS Inj 100 / 100 100 ML @ 200 mls/hr IV.SIG Q24H [facility] Rx#:[id number] fentaNYL 10 mcg/mL Premix Drip 500 / 500 750 / 750 250 / 250 2,500 mcg In 250 ml @ 50 MCG/HR 5 mls/hr IV.SIG TITRATE PRN Rx #:[id number] Flolan (30,000 ng/mL) Neb 90 ML 100 / 100 100 / 100 In NS Inj 10 ML @ 5 mls/hr NEB Q8H [facility] Rx#:[id number] Tube Feeding 179 / 179 Tube Irrigant 180 / 180 Water Bolus Amount 250 / 250 400 / 400 Output: Stool 60 / 60 600 / 600 Urine Amount (Catheter) 3075 / 3075 4050 / 4050 Indwelling Urethral Catheter 3075 / 3075 4050 / 4050 Other: Date of Last Bowel Movement 05/15/18 05/15/18 05/14/18 20:55 Blood - Peripheral Aerobic Blood Culture - Preliminary No growth in 1 day 05/14/18 20:55 Blood - Peripheral Anaerobic Blood Culture - Preliminary No growth in 1 day 05/14/18 20:46 Blood - Peripheral Aerobic Blood Culture - Preliminary No growth in 1 day 05/14/18 20:46 Blood - Peripheral Anaerobic Blood Culture - Preliminary No growth in 1 day Lab - Hematology Results 05/14/18 05/15/18 03:47 04:43 WBC 18.5 H 14.8 H RBC 3.63 L 3.03 L Hgb 10.6 L 10.0 L Hct 32.5 L 27.5 L MCV 89.4 90.8 MCH 29.3 33.0 MCHC 32.8 36.3 H RDW 15.9 15.8 Plt Count 347 227 D MPV 8.2 8.9 Prelim Diff (Auto) Slide review pending Manual diff required Neut % (Auto) 78.4 H Lymph % (Auto) 13.2 [place] % (Auto) 8.2 H Eos % (Auto) 0.0 Baso % (Auto) 0.2 Neut # (Auto) 14.4 H Lymph # (Auto) 2.4 [place] # (Auto) 1.5 H Eos # (Auto) 0.0 Baso # (Auto) 0.0 WBC Differential Manual diff final Manual diff final Seg Neuts % (Manual) 77 H 73 H Band Neuts % (Manual) 4 7 H Lymphocytes % (Manual) 10 18 Monocytes % (Manual) 8 Metamyelocytes % (Man) 1 Myelocytes % (Man) 1 H Plasma Cell % (Manual) 1 H Abs Neuts (Manual) 15.2 H 12.0 H Differential Comment . . Platelet Estimate Normal Normal Platelet Morphology Normal Normal RBC Morphology Normal Lab - Chemistry Results 05/13/18 05/14/18 05/14/18 17:49 00:55 03:47 Sodium 140 140 Potassium 3.7 2.9 L* D Chloride 106 104 Carbon Dioxide 23.4 24.7 Anion Gap 11 11 BUN 20 H 21 H Creatinine 0.58 L 0.68 Estimated GFR Greater than 89 Greater than 89 POC Glucose 148 H Random Glucose 132 H 124 H Calcium 8.3 L 8.3 L Prot Corrected Calcium Phosphorus 3.1 Magnesium 2.0 Total Bilirubin 0.5 AST 21 ALT 47 Alkaline Phosphatase 70 Total Protein 7.0 D Albumin 2.5 L 05/14/18 05/14/18 05/14/18 12:04 17:11 18:24 Sodium Potassium 3.5 Chloride Carbon Dioxide Anion Gap BUN Creatinine Estimated GFR POC Glucose 128 H 146 H Random Glucose Calcium Prot Corrected Calcium Phosphorus Magnesium Total Bilirubin AST ALT Alkaline Phosphatase Total Protein Albumin 05/14/18 05/15/1818 23:37 04:43 05:11 Sodium 136 Potassium 3.2 L Chloride 103 Carbon Dioxide 21.4 Anion Gap 12 BUN 18 Creatinine 0.54 L Estimated GFR Greater than 89 POC Glucose 153 H 139 H Random Glucose 149 H Calcium 6.7 L* D Prot Corrected Calcium 7.0 L* Phosphorus 3.8 Magnesium 1.9 Total Bilirubin 0.9 AST 28 ALT 48 Alkaline Phosphatase 55 Total Protein 6.5 Albumin 2.2 L 05/15/18 05/15/18 11:58 18:29 Sodium Potassium Chloride Carbon Dioxide Anion Gap BUN Creatinine Estimated GFR POC Glucose 162 H 192 H Random Glucose Calcium Prot Corrected Calcium Phosphorus Magnesium Total Bilirubin AST ALT Alkaline Phosphatase Total Protein Albumin Imaging: ITS Impressions Head CT 04/27/18 11:31 CONCLUSION: 1. Negative CT Head non contrast. . Abdomen/Pelvis CT 04/27/18 11:35 CONCLUSION: 1. Extensive atelectasis in both lower lobes. 2. The Stone catheter needs to be deflated and advanced into the bladder. The catheter is at the level of the prosthetic urethra. 3. No findings to indicate a bowel obstruction are seen. No free air free fluid is identified. Chest CT 04/27/18 11:35 CONCLUSION: 1. Consolidation both posterior lungs with air bronchograms. This could represent bilateral pneumonia or aspiration. Cervical Spine CT 04/27/18 11:36 CONCLUSION: 1. Negative trauma study. Lumbar Spine CT 04/27/18 11:59 CONCLUSION: 1. Negative for acute process 2. There is no evidence for vertebral compression. Head MRI 04/29/18 07:05 CONCLUSION: 1. Negative MRI of the brain. 2. Inflammatory process cannot be entirely excluded. 3. There are no infarcts identified. Venous Doppler Study 05/12/18 00:00 CONCLUSION: 1. The exam demonstrates thrombosis of the posterior tibial vein within the calf bilaterally. Chest X-Ray 05/14/18 06:00 CONCLUSION: 1. Interval improvement in prior hazy opacity in the left lung. 2. Interval increase in hazy opacity throughout the right lung. This may represent posterior layering effusion. Abdomen X-Ray 05/14/18 13:26 CONCLUSION: Weighted feeding tube tip in satisfactory position. Additional advancement may allow the tube to migrate into the small bowel Physical Exam: GENERAL: NAD sedated int'd and on vent SKIN: Warm and dry. no rash. HEAD: Atraumatic. Normocephalic. EYES: Face mildly edematous ENT: orally intubated NECK: Trachea midline. No JVD. CARDIOVASCULAR: RRR no murmurs well perfused periphery RESPIRATORY: clear GASTROINTESTINAL: soft abdomen not tender not disteded dignishield in place with light brown stool MUSCULOSKELETAL: Extremities without clubbing, cyanosis, + 2 edema. NEUROLOGICAL: sedated PSYCHIATRIC: unable to assess Assessment and Plan - Plan Sepsis ongoing possible new. PNA, probably aspiration Acute VDRF on rotaprone bed. MSSA pneumonia. GNR pneumonia: Kleb, Enterobacter Morbid obesity with likely obesity- hypoventilation sd Coag neg staph bacteremia, low grade doubt clin significance New fever Leukocytosis diarrhea, c.diff negative UA negative Recs: cont Ceftriaxone + oxacillin fu new blood clx untill final Follow clinical course.
--- NOTE | 2018-05-15 18:48 | P.PNWCN ---
Wound Care Nurse Consult Description: Received consult for wound management of sacral wound from Doctor Keith Communicated with: ZACK Patiño [facility] [place] Recommendation: Please cleanse buttock are gently with remedy barrier wipes. [place] deep tissue injury to sacrococcygeal area with Cavilon skin barrier film spray BID and PRN and leave open to air. Patient is currently on rotoprone, RN to [facility] wound care nurse for wound deterioration. Wound/Pressure Injury - Additional Information Patient not seen for follow up of Sacral deterioration or for new wounds, Spoke with Kaylyn DIXON Omer, patient is unstable for turning at this time, will follow up with patient on Friday.
[2018-05-15] MEDS: Multivitamin Inj 10 ML, Folic Acid Inj 1 MG in AA 4.25 %/D5W - Electrolytes 2,000 ML IV.SIG SCH (20:04)
[2018-05-15] MEDS: Potassium Chlor 40 mEq Premix 40 MEQ/100 ML PIGGYBACK IV.SIG PRN (21:48)
[2018-05-15] MEDS: Epoprostenol (30,000/mL) Neb 45 ML in Sodium Chlor 0.9% Inj 55 ML NEB SCH ×2 (23:18→23:19)
[2018-05-16] MEDS: Dexmedetomidine Inj 1,000 MCG in Sodium Chlor 0.9% Inj 240 ML IV.CONT PRN ×6 (00:42→21:40)
[2018-05-16] MEDS: Potassium Chlor 40 mEq Premix 40 MEQ/100 ML PIGGYBACK IV.SIG PRN ×2 (00:43→23:09)
[2018-05-16] MEDS: Propofol 1000 mg/100 ml Inj 1,000 MG/100 ML BOTTLE IV.CONT PRN ×10 (00:43→22:42)
[2018-05-16] MEDS: fentaNYL 10 mcg/mL Premix Drip 2,500 MCG/250 ML BAG IV.SIG PRN ×5 (00:44→22:41)
[2018-05-16] MEDS: Midazolam 50 MG/50 ML Inj 50 MG/50 ML BAG IV.CONT PRN ×4 (00:45→07:30)
[2018-05-16] MEDS: Insulin NovoLOG Aspart Correctional Sugar Inj SQ SCH ×4 (01:07→18:48)
[2018-05-16] MEDS: Artificial Tears Opth Drops 15 ML Bottle EACH EYE SCH ×3 (01:10→16:55)
[2018-05-16 04:13] LABS: Baso # (Auto) 0.1 th/mm3 (0.0-0.2); Baso % (Auto) 0.5 % (0.0-2.0); Eos % (Auto) 0.1 % (0.0-4.0); Hematocrit 27.5 % (39.0-51.0); Lymph # (Auto) 1.5 th/mm3 (1.0-4.8); Lymph % (Auto) 9.3 % (9.0-44.0); Mean Corpuscular Hemoglobin 32.1 pg (27.0-34.0); Mean Corpuscular Volume 88.1 fL (80.0-100.0); Mean Platelet Volume 8.7 fL (7.0-11.0); Mono # (Auto) 1.3 th/mm3 (0.0-0.9); Neut % (Auto) 82.1 % (16.0-70.0); Platelet Count 291 th/mm3 (150-450); Red Blood Count 3.12 mil/mm3 (4.50-5.90); Red Cell Distribution Width 15.5 % (11.6-17.2); White Blood Count 15.9 th/mm3 (4.0-11.0)
[2018-05-16 04:19] LABS: Mean Corpuscular HGB Conc 36.4 % (32.0-36.0)
[2018-05-16] MEDS: MethylPREDNISolone Sod Succinate Inj 40 MG/ML Vial IV.PUSH SCH ×3 (05:27→21:01)
[2018-05-16] MEDS: Bumetanide Inj 25 MG/100 ML BAG IV.CONT SCH ×2 (05:53→09:59)
[2018-05-16 07:15] LABS: Lymphocytes 7 % (9-44); Monocytes 10 % (0-8); Platelet Estimate Normal (Normal); Platelet Morphology Normal (Normal)
--- NOTE | 2018-05-16 07:49 | P.PNCC ---
Subjective Subjective Remarks/Hospital Course: Patient is approximately 22 years old male obese, was found on the floor by a family member, downtime is unknown. EMS was called, patient was given Narcan with no response, he was intubated on the scene, apparently GCS 3. Found bag of PCP next to the patient. Patient has history of psychiatric disorder ? bipolar disorder and I am told he has attempted suicide in the past. There is also mention about suspicion of ethylene glycol ingestion, but his serum osmolality is 307 his osmolar gap is only 13. Bicarb is 26, ethylene glycol seems unlikely. Ethanol was negative urine drug screen only positive for benzo. I evaluated the patient in the ICU at the [facility]. Patient had a CT of the head which was negative. Rest of the workup unremarkable except for bibasilar atelectasis/aspiration pneumonia. Patient's white count is elevated at 17.1, glucose is 232 lactic acid was 2.8. He received multiple fluid boluses. At this time he is not on any sedation but remains unresponsive no response to deep pain 04/28 Patient remains intubated off sedation unresponsive. Afebrile. 04/29: MRI of the brain revealed no acute intracranial findings. EEG to be performed tomorrow. More arousable and moves all 4 extremities but not following commands. Placed on dexamethasone E drip. 2 feeds will be restarted 04/30: T-max 101.4. Currently afebrile. No bowel movement since admission. Arousable and follows simple commands late last night but currently on sedation for agitation. Increased FiO2 noted. Will attempt to gently diurese and continue antibiotics for pansensitive staph aureus/group a beta strep sputum 05/01 Patient is sedated with Fentanyl, Diprivan and intubated. T:101.1 at 5am. Placed on APRV overnight. 05/02 Patient is sedated with Diprivan and Fentanyl drips. Tmax 101.3, on PC/AC with PEEP:12, FIO2 80%, IP:30 05/03 Patient is heavily sedated with Diprivan, Fentanyl and Versed . On PC/AC with PEEP: 14 and FIO2 100$ sats 92%, CXR yesterday showed diffuse b/l pulm infiltrates, started on Flolan nebs. Had Tmax 102.6 last night. 05/04 Patient was placed on rotoprone bed yesterday sedated with Diprivan, Versed and Fentanyl infusion and on neuromuscular blockade( Nimbex) On PC/AC His FIO2 requirements is better now on FIO2:50% from 100% with PEEP:14. T:102.6 05/05 Patient remains intubated and sedated on Bumex drip 0.5mg/hr, T:99.7 at 3am. On PC/AC with PEEP:1 and FIO2 60%- sats 95%. 05/06 Patient remains sedated and intubated on rotoprone bed with improvements in his oxygenation. Now on PC/AC with PEEP:10, FIO2 40%. Afebrile. On Bumex drip 0.5mg/hr. 05/07 Patient remains on rotoprone bed sedated and on Nimbex drip. He is also on Bumex drip 0.5mg/hr with good urine output . 05/08 Patient remains sedated and intubated. On Flolan, and Bumex drip. Afebrile. 05/09 Patient desat overnight now on PC/AC with PEEP:10 and FIO2 100% sats 96%. Had T: 100.4 at midnight. Sputum cx 05/07 GNR. Remains sedated on Flolan and Bumex drip. 05/10: Resting in bed. Remains on PC/AC rate increased to 16. FiO2 80%. Low- grade fevers noted. Remains on epoprostenol and bumetanide drips. Hypertension noted. Aspirated this a.m. and so discontinued tube feeding. We will start PPN today. 05/11 Patient remains on rotoprone bed, sedated and intubated. Afebrile. On PC/ AC with PEEP;10 and FIO2 55%.On Flolan and Bumex drip 0.5mg/hr 05/12 Remains sedated, intubated and on Rotoprone bed. PC/AC with PEEP: 12 and FIO2 70% sats 96%. T:100.4 last night. On Flolan and Bumex drip. 05/14: Off rotaprone since yesterday, nimbex discontinued, PEEP 14 and FiO2 50% with sats in mid 90s. Still on flolan. 05/15: No acute issues overnight, plan is to wean PEEP slowly over the weekend for tracheostomy on Friday 05/18. 05/16: Flolan weaned yesterday, tolerated well, will continue to wean today. PEEP down to 10. O2 sats low to mid 90s. Objective Vital Signs / I&O: Vital Signs 05/15/18 07:54 05/15/18 08:00 05/15/18 11:22 Temperature 100.5 F H Pulse Rate 88 87 92 H Respiratory Rate 16 16 16 Blood Pressure 115/69 Pulse Oximetry 92 L 92 L 95 05/15/18 12:00 05/15/18 14:48 05/15/18 15:42 Temperature 99.5 F Pulse Rate 91 H 89 Respiratory Rate 16 26 H 16 Blood Pressure 117/66 Pulse Oximetry 91 L 96 05/15/18 16:00 05/15/18 18:30 05/15/18 19:00 Temperature 98.9 F 99.7 F H 99.7 F H Pulse Rate 83 78 80 Respiratory Rate 16 Blood Pressure 126/69 128/83 Pulse Oximetry 91 L 95 93 L 05/15/18 19:30 05/15/18 20:00 05/15/18 20:01 Temperature 99.5 F 100.4 F H 100.4 F H Pulse Rate 93 H 82 82 Respiratory Rate 16 Blood Pressure 133/79 133/67 133/67 Pulse Oximetry 93 L 95 95 05/15/18 20:30 05/15/18 21:00 05/15/18 21:31 Temperature 100.4 F H 99.5 F 100.2 F H Pulse Rate 78 76 76 Respiratory Rate Blood Pressure 136/76 143/76 H 142/71 H Pulse Oximetry 95 94 L 94 L 05/15/18 22:00 05/15/18 22:30 05/15/18 23:00 Temperature 100.4 F H 100.6 F H 100.8 F H Pulse Rate 76 78 75 Respiratory Rate 17 Blood Pressure 139/81 143/78 H 143/81 H Pulse Oximetry 94 L 94 L 94 L 05/15/18 23:31 05/16/18 00:00 05/16/18 00:01 Temperature 101.5 F H 100.8 F H 100.9 F H Pulse Rate 80 80 80 Respiratory Rate Blood Pressure 144/76 H 141/75 H Pulse Oximetry 92 L 93 L 93 L 05/16/18 00:30 05/16/18 01:00 05/16/18 01:31 Temperature 101.3 F H 101.5 F H 101.7 F H Pulse Rate 74 75 79 Respiratory Rate Blood Pressure 141/79 H 142/84 H 140/80 Pulse Oximetry 95 95 96 05/16/18 02:00 05/16/18 02:31 05/16/18 03:00 Temperature 102.0 F H 101.8 F H 100.8 F H Pulse Rate 82 86 86 Respiratory Rate Blood Pressure 143/80 H 136/63 Pulse Oximetry 95 95 97 05/16/18 03:01 05/16/18 03:31 05/16/18 03:51 Temperature 100.6 F H 99.3 F Pulse Rate 85 83 Respiratory Rate 16 Blood Pressure 145/77 H 147/77 H Pulse Oximetry 97 96 96 05/16/18 04:00 05/16/18 04:01 05/16/18 04:31 Temperature 100.6 F H 100.6 F H 100.8 F H Pulse Rate 81 83 74 Respiratory Rate Blood Pressure 146/71 H 143/76 H Pulse Oximetry 93 L 92 L 92 L 05/16/18 05:00 05/16/18 05:01 05/16/18 05:31 Temperature 100.2 F H 100.2 F H 99.9 F H Pulse Rate 74 76 78 Respiratory Rate Blood Pressure 144/75 H 136/73 Pulse Oximetry 92 L 92 L 92 L 05/16/18 06:00 05/16/18 06:01 05/16/18 06:31 Temperature 99.1 F 99.1 F 99.5 F Pulse Rate 75 76 70 Respiratory Rate Blood Pressure 139/73 138/77 Pulse Oximetry 91 L 91 L 91 L 05/16/18 07:00 Temperature Pulse Rate Respiratory Rate 16 Blood Pressure Pulse Oximetry 95 Intake & Output 05/15/18 05/16/18 05/16/18 18:59 06:59 18:59 Intake Total 1400 / 1400 3040.7 / 3040.7 150 / 150 Output Total 4450 / 4450 3850 / 3850 Balance -3050 / -3050 -809.3 / -809.3 150 / 150 Weight 158.4 kg Intake: IV 1400 / 1400 2734.7 / 2734.7 150 / 150 Bumex Inj 25 mg In 100 ml @ 0.5 48 / 48 MG/HR 2 mls/hr IV.CONT .Q24H [facility] Rx#:[id number] Precedex Inj 1,000 MCG In NS 250 / 250 797.7 / 797.7 Inj 240 ML @ 0.2 MCG/KG/HR 8.4 mls/hr IV.CONT TITRATE PRN Rx#: [id number] Versed Inj 50 mg In 50 ml @ 2 100 / 100 150 / 150 50 / 50 MG/HR 2 mls/hr IV.CONT TITRATE PRN Rx#:[id number] Diprivan 1000 mg/100 ml Inj 1, 500 / 500 400 / 400 000 mg In 100 ml @ 5 MCG/KG/MIN 4.77 mls/hr IV.CONT TITRATE PRN Rx#:[id number] Prostaphlin Inj 2 GM In NS Inj 300 / 300 200 / 200 100 / 100 100 ML @ 200 mls/hr IV.SIG Q4H [facility] Rx#:[id number] KCl 40 mEq Premix Inj 40 meq In 200 / 200 100 ml @ 25 mls/hr IV.SIG Q2H [facility] Rx#:[id number] fentaNYL 10 mcg/mL Premix Drip 250 / 250 884 / 884 2,500 mcg In 250 ml @ 50 MCG/HR 5 mls/hr IV.SIG TITRATE PRN Rx #:[id number] Flolan (30,000 ng/mL) Neb 45 ML 55 / 55 In NS Inj 55 ML @ 5 mls/hr NEB Q8H [facility] Rx#:[id number] Tube Feeding 56 / 56 Water Bolus Amount 250 / 250 Output: Stool 50 / 50 400 / 400 Urine Amount (Catheter) 4200 / 4200 3450 / 3450 Indwelling Urethral Catheter 4200 / 4200 3450 / 3450 Stool Amount (Stoma) 200 / 200 Right Upper Abdomen 200 / 200 Other: # Incontinent Voids 2 Date of Last Bowel Movement 05/15/18 05/16/18 Result Diagrams: 05/16/18 09:35 05/16/18 09:35 Objective Remarks: GENERAL: Intubated and sedated SKIN: Warm and dry HEAD: Normocephalic. EYES: No scleral icterus. No injection or drainage. NECK: Supple, trachea midline. No JVD or lymphadenopathy. CARDIOVASCULAR: Regular rate and rhythm RESPIRATORY: Improved breath sounds bilaterally GASTROINTESTINAL: Abdomen obese, soft, non-tender. MUSCULOSKELETAL: Trace peripheral edema. Neuro: RASS 0 to -1, easily arousable Assessment and Plan - Assessment and Plan Plan: NEURO/PSYCH: Acute metabolic encephalopathy Suspected PCP overdose Suspected ethylene glycol overdose Suicide attempt -Still requiring high levels of sedation to prevent vent dyssynchrony-- currently on precedex, propofol, versed, fentanyl, and is getting scheduled seroquel and oxycodone. Easily arousable with even small decrease in sedation. -Psychiatric consult after neurological recovery, previously on Wellbutrin. -CT of the head negative. MRI of brain negative. -EEG 04/30 and follow-up EEG 04/28 with no epileptic activity RESP: Acute hypoxemic respiratory failure Severe ARDS on Prone therapy Bibasilar aspiration pneumonitis Tobacco abuse -Continue with vent support keep sats >92% -On PC/AC RR 16, PEEP 10 and FiO2 50%, wean FiO2 and PEEP as tolerated -Ventilator bundle. Bronchodilators (ipratropium/albuterol, Q4), Solumedrol 40mg Q8 -Continue to wean flolan s/p bronch 05/02 thick secretions suctioned to clear. No evidence of EBL or bleeding. -Decrease nicotine patch dose tomorrow -Some gurgling noted around ETT this morning, advanced, CXR continues to improve -Tentative plan for trach early next week if able to wean PEEP over the weekend , currently on CV: Essential hypertension -Monitor HR and BP keep MAP>65mmHg -On Lopressor 50mg TID -Echo 04/28: EF 60-65%, PASP 36mmHg GI: Elevated ALT Hypoalbuminemia - IV famotidine. -Dobhoff in place, continue TFs, d/c PPN when tolerating >24 hours -Docusate serum/senna 1 tablet twice daily for bowel regimen. Lactulose 30 cc twice daily and MiraLAX 17 g twice daily. -free water 250ml Q12 Renal/FEN/: -Monitor renal function, I/O's, electrolytes replacement as needed -Continue Bumex drip at 0.5 mg/hr, urine output excellent ID: MSSA/group A beta strep pneumonia Superadded Enterobacter/Klebsiella ammonia Abx per ID- On Rocephin and Oxacillin- monitor for signs of infection 05/07 Sputm cx: andrews-sensitive Kleb pneumonia, Enterobacter. Repeat cultures sent yesterday. 04/27 Sputum: Staph aureus/MSSA and beta strep not group A. 05/03 BC: Coag neg staph 05/02 bronch cx: Staph Aureus ID is following HEME: Normocytic anemia Leukocytosis -Monitor CBC, coags -Persistent leukocytosis due to sepsis and steroid use ENDO/FEN: Hyperglycemia -Electrolyte replacement per protocol -Sliding scale insulin PROPH: GI prophylaxis- On Pepcid DVT prophylaxis- Lovenox 40mg SQ BID b/l LE thrombus of posterior veins within calf while on Heparin SQ -switched to Lovenox 40mg SQ BID giving his weight. Doppler US LE: thrombosis of the posterior tibial vein within the calf bilaterally. Check follow-up ultrasound on Friday 05/18 to eval for progression LINES: -Utilize peripheral IVs, [facility] central line placed in ED 04/27-d/janina. PICC placed on 05/08/18 Level 2 follow up To help prompt me to consider important information that might be impacting today's encounter and assessment, information from prior notes written by myself or my colleagues may have been "brought forward" into today's note. My signature on this note, however, is an attestation that I personally performed the exam, history, and/or decision-making noted today, and, unless otherwise indicated, the interactions with patient, family, and staff as well as the review of records all occurred today. I also attest that the listed assessment and stated plan reflect my best clinical judgment today based on the combination of historical information, prior notes, and today's exam/ interactions. Code Status: Full
[2018-05-16] MEDS: Enoxaparin Inj 40 MG/0.4 ML Syringe SQ SCH ×2 (08:24→20:58)
[2018-05-16] MEDS: Polyethylene Glycol 3350 17 GM Packet PO SCH ×2 (08:24→20:58)
[2018-05-16] MEDS: Pantoprazole Inj 40 MG Vial IV.PUSH SCH (08:25)
[2018-05-16] MEDS: QUEtiapine 25 MG Tablet PO SCH ×2 (08:25→20:58)
[2018-05-16] MEDS: Metoprolol Tartrate 50 MG Tablet PO SCH ×3 (08:26→17:25)
[2018-05-16] MEDS: Senna/Docusate Sodium 8.6/50 MG Tablet PO SCH ×2 (08:26→20:58)
[2018-05-16] MEDS: Heparin Central Flush 100 UNIT/ML 5 ML Vial IV.FLUSH SCH (08:27)
--- NOTE | 2018-05-16 08:31 | XR ---
EXAM DATE: 05/16/2018 8:24 AM EST AGE/SEX: 22 years / Male INDICATIONS: Respiratory failure. CLINICAL DATA: This is the patient's subsequent encounter. Patient reports that signs and symptoms h ave been present for 3 weeks and indicates a pain score of Nonresponsive. MEDICAL/SURGICAL HISTORY: None. Tonsillectomy. COMPARISON: [facility], CHEST 1V SINGLE AP, 05/14/2018. . FINDINGS: AP semiupright portable view of the chest demonstrates endotracheal tube with the tip at the level of clavicles, stable. Right-sided PICC line with the tip overlying the distal SVC, stable. There is sta ble hazy opacity involving the right hemithorax consistent with a layering pleural effusion. The left hemithorax is clear. Heart size is normal. CONCLUSION: Stable endotracheal tube and right-sided PICC line. Stable appearance of a large layering pleural eff usion within the right hemithorax. Electronically signed by: Chuyita Kraus MD 05/16/2018 8:30 AM EST
[2018-05-16] MEDS: Epoprostenol (30,000/mL) Neb 45 ML in Sodium Chlor 0.9% Inj 55 ML NEB SCH (09:33)
[2018-05-16] MEDS: Multivitamin Inj 10 ML, Folic Acid Inj 1 MG in AA 4.25 %/D5W - Electrolytes 2,000 ML IV.SIG SCH ×2 (09:59→20:52)
--- NOTE | 2018-05-16 10:08 | P.PNID ---
Subjective Remarks: ID Coverage Background History: pt unable to provide history history from the chart and father @ b/s 22 yo morbidly obese male with bipolar, major depressive disorder found down prone by his father unresponsive + some fevers, malaise few dauy prior but refused to go seek med attention On vent @ 100% + marked amopunt of paul to dark secretions Fever up to 102.6, WBC up to 13-14 K BAL with MSSA, beta strep not group A is sputum clx CXR with Right greater than left consolidation and small effusions again noted. Notes reviewed Temps ok this morning for first time D/W RN remains on the vent On 4 sedation meds: Propofol, versed, fentanyl and Precedex Trach plans for Friday Not a lot of ET secretions C/S reviewed CXR reviewed On Oxacillin and Rocephin Has PICC MARTINEZJackie Has cristo Father at bedside Antibiotics: CFTX oxacillin Lines: Line sites ok Past Medical History: reviewed. Allergies/Adverse Reactions: Allergies shellfish derived Allergy (Verified 04/29/18 13:12) Anaphylaxis No Known Allergies Allergy (Uncoded 04/29/18 13:12) Objective Vital Signs 05/15/18 11:22 05/15/18 12:00 05/15/18 14:48 Temperature 99.5 F Pulse Rate 92 H 91 H 89 Respiratory Rate 16 16 26 H Blood Pressure 117/66 Pulse Oximetry 95 91 L 05/15/18 15:42 05/15/18 16:00 05/15/18 18:30 Temperature 98.9 F 99.7 F H Pulse Rate 83 78 Respiratory Rate 16 16 Blood Pressure 126/69 Pulse Oximetry 96 91 L 95 05/15/18 19:00 05/15/18 19:30 05/15/18 20:00 Temperature 99.7 F H 99.5 F 100.4 F H Pulse Rate 80 93 H 82 Respiratory Rate 16 Blood Pressure 128/83 133/79 133/67 Pulse Oximetry 93 L 93 L 95 05/15/18 20:01 05/15/18 20:30 05/15/18 21:00 Temperature 100.4 F H 100.4 F H 99.5 F Pulse Rate 82 78 76 Respiratory Rate Blood Pressure 133/67 136/76 143/76 H Pulse Oximetry 95 95 94 L 05/15/18 21:31 05/15/18 22:00 05/15/18 22:30 Temperature 100.2 F H 100.4 F H 100.6 F H Pulse Rate 76 76 78 Respiratory Rate 17 Blood Pressure 142/71 H 139/81 143/78 H Pulse Oximetry 94 L 94 L 94 L 05/15/18 23:00 05/15/18 23:31 05/16/18 00:00 Temperature 100.8 F H 101.5 F H 100.8 F H Pulse Rate 75 80 80 Respiratory Rate Blood Pressure 143/81 H 144/76 H Pulse Oximetry 94 L 92 L 93 L 05/16/18 00:01 05/16/18 00:30 05/16/18 01:00 Temperature 100.9 F H 101.3 F H 101.5 F H Pulse Rate 80 74 75 Respiratory Rate Blood Pressure 141/75 H 141/79 H 142/84 H Pulse Oximetry 93 L 95 95 05/16/18 01:31 05/16/18 02:00 05/16/18 02:31 Temperature 101.7 F H 102.0 F H 101.8 F H Pulse Rate 79 82 86 Respiratory Rate Blood Pressure 140/80 143/80 H 136/63 Pulse Oximetry 96 95 95 05/16/18 03:00 05/16/18 03:01 05/16/18 03:31 Temperature 100.8 F H 100.6 F H 99.3 F Pulse Rate 86 85 83 Respiratory Rate Blood Pressure 145/77 H 147/77 H Pulse Oximetry 97 97 96 05/16/18 03:51 05/16/18 04:00 05/16/18 04:01 Temperature 100.6 F H 100.6 F H Pulse Rate 81 83 Respiratory Rate 16 Blood Pressure 146/71 H Pulse Oximetry 96 93 L 92 L 05/16/18 04:31 05/16/18 05:00 05/16/18 05:01 Temperature 100.8 F H 100.2 F H 100.2 F H Pulse Rate 74 74 76 Respiratory Rate Blood Pressure 143/76 H 144/75 H Pulse Oximetry 92 L 92 L 92 L 05/16/18 05:31 05/16/18 06:00 05/16/18 06:01 Temperature 99.9 F H 99.1 F 99.1 F Pulse Rate 78 75 76 Respiratory Rate Blood Pressure 136/73 139/73 Pulse Oximetry 92 L 91 L 91 L 05/16/18 06:31 05/16/18 07:00 Temperature 99.5 F Pulse Rate 70 Respiratory Rate 16 Blood Pressure 138/77 Pulse Oximetry 91 L 95 Intake & Output 05/15/18 05/16/18 05/16/18 18:59 06:59 18:59 Intake Total 1400 / 1400 3040.7 / 3040.7 521 / 521 Output Total 4450 / 4450 3850 / 3850 Balance -3050 / -3050 -809.3 / -809.3 521 / 521 Weight 158.4 kg Intake: IV 1400 / 1400 2734.7 / 2734.7 521 / 521 Bumex Inj 25 mg In 100 ml @ 0.5 48 / 48 MG/HR 2 mls/hr IV.CONT .Q24H [facility] Rx#:[id number] Precedex Inj 1,000 MCG In NS 250 / 250 797.7 / 797.7 Inj 240 ML @ 0.2 MCG/KG/HR 8.4 mls/hr IV.CONT TITRATE PRN Rx#: [id number] Versed Inj 50 mg In 50 ml @ 2 100 / 100 150 / 150 50 / 50 MG/HR 2 mls/hr IV.CONT TITRATE PRN Rx#:[id number] Diprivan 1000 mg/100 ml Inj 1, 500 / 500 400 / 400 100 / 100 000 mg In 100 ml @ 5 MCG/KG/MIN 4.77 mls/hr IV.CONT TITRATE PRN Rx#:[id number] Prostaphlin Inj 2 GM In NS Inj 300 / 300 200 / 200 200 / 200 100 ML @ 200 mls/hr IV.SIG Q4H [facility] Rx#:[id number] KCl 40 mEq Premix Inj 40 meq In 200 / 200 100 ml @ 25 mls/hr IV.SIG Q2H PRN Rx#:[id number] fentaNYL 10 mcg/mL Premix Drip 250 / 250 884 / 884 116 / 116 2,500 mcg In 250 ml @ 50 MCG/HR 5 mls/hr IV.SIG TITRATE PRN Rx #:[id number] Flolan (30,000 ng/mL) Neb 45 ML 55 / 55 55 / 55 In NS Inj 55 ML @ 5 mls/hr NEB Q8H [facility] Rx#:[id number] Tube Feeding 56 / 56 Water Bolus Amount 250 / 250 Output: Stool 50 / 50 400 / 400 Urine Amount (Catheter) 4200 / 4200 3450 / 3450 Indwelling Urethral Catheter 4200 / 4200 3450 / 3450 Stool Amount (Stoma) 200 / 200 Right Upper Abdomen 200 / 200 Other: # Incontinent Voids 2 Date of Last Bowel Movement 05/15/18 05/16/18 05/14/18 20:55 Blood - Peripheral Aerobic Blood Culture - Preliminary No growth in 1 day 05/14/18 20:55 Blood - Peripheral Anaerobic Blood Culture - Preliminary No growth in 1 day 05/14/18 20:46 Blood - Peripheral Aerobic Blood Culture - Preliminary No growth in 1 day 05/14/18 20:46 Blood - Peripheral Anaerobic Blood Culture - Preliminary No growth in 1 day Lab - Hematology Results 05/15/18 05/16/18 05/16/18 04:43 03:30 09:35 WBC 14.8 H 15.9 H RBC 3.03 L 3.12 L Hgb 10.0 L 10.0 L Hct 27.5 L 27.5 L MCV 90.8 88.1 MCH 33.0 32.1 MCHC 36.3 H 36.4 H RDW 15.8 15.5 Plt Count 227 D 291 MPV 8.9 8.7 Prelim Diff (Auto) Manual diff required Slide review pending Neut % (Auto) 82.1 H Lymph % (Auto) 9.3 Hoke % (Auto) 8.0 Eos % (Auto) 0.1 Baso % (Auto) 0.5 Neut # (Auto) 13.0 H Lymph # (Auto) 1.5 Hoke # (Auto) 1.3 H Eos # (Auto) 0.0 Baso # (Auto) 0.1 WBC Differential Manual diff final Manual diff final Seg Neuts % (Manual) 73 H 80 H Band Neuts % (Manual) 7 H 3 Lymphocytes % (Manual) 18 7 L Monocytes % (Manual) 10 H Myelocytes % (Man) 1 H Plasma Cell % (Manual) 1 H Abs Neuts (Manual) 12.0 H 13.2 H Differential Comment . . Platelet Estimate Normal Normal Platelet Morphology Normal Normal Hematology Comments Lab - Chemistry Results 05/14/18 05/14/18 05/14/18 12:04 17:11 18:24 Sodium Potassium 3.5 Chloride Carbon Dioxide Anion Gap BUN Creatinine Estimated GFR POC Glucose 128 H 146 H Random Glucose Calcium Prot Corrected Calcium Phosphorus Magnesium Total Bilirubin AST ALT Alkaline Phosphatase Total Protein Albumin 05/14/18 05/15/18 05/15/18 23:37 04:43 05:11 Sodium 136 Potassium 3.2 L Chloride 103 Carbon Dioxide 21.4 Anion Gap 12 BUN 18 Creatinine 0.54 L Estimated GFR Greater than 89 POC Glucose 153 H 139 H Random Glucose 149 H Calcium 6.7 L* D Prot Corrected Calcium 7.0 L* Phosphorus 3.8 Magnesium 1.9 Total Bilirubin 0.9 AST 28 ALT 48 Alkaline Phosphatase 55 Total Protein 6.5 Albumin 2.2 L 05/15/18 05/15/18 05/15/18 11:58 18:29 23:54 Sodium Potassium Chloride Carbon Dioxide Anion Gap BUN Creatinine Estimated GFR POC Glucose 162 H 192 H 147 H Random Glucose Calcium Prot Corrected Calcium Phosphorus Magnesium Total Bilirubin AST ALT Alkaline Phosphatase Total Protein Albumin 05/16/18 05/16/18 05:47 08:42 Sodium Potassium Chloride Carbon Dioxide Anion Gap BUN Creatinine Estimated GFR POC Glucose 135 H 136 H Random Glucose Calcium Prot Corrected Calcium Phosphorus Magnesium Total Bilirubin AST ALT Alkaline Phosphatase Total Protein Albumin Imaging: ITS Impressions Head CT 04/27/18 11:31 CONCLUSION: 1. Negative CT Head non contrast. . Abdomen/Pelvis CT 04/27/18 11:35 CONCLUSION: 1. Extensive atelectasis in both lower lobes. 2. The Stone catheter needs to be deflated and advanced into the bladder. The catheter is at the level of the prosthetic urethra. 3. No findings to indicate a bowel obstruction are seen. No free air free fluid is identified. Chest CT 04/27/18 11:35 CONCLUSION: 1. Consolidation both posterior lungs with air bronchograms. This could represent bilateral pneumonia or aspiration. Cervical Spine CT 04/27/18 11:36 CONCLUSION: 1. Negative trauma study. Lumbar Spine CT 04/27/18 11:59 CONCLUSION: 1. Negative for acute process 2. There is no evidence for vertebral compression. Head MRI 04/29/18 07:05 CONCLUSION: 1. Negative MRI of the brain. 2. Inflammatory process cannot be entirely excluded. 3. There are no infarcts identified. Venous Doppler Study 05/12/18 00:00 CONCLUSION: 1. The exam demonstrates thrombosis of the posterior tibial vein within the calf bilaterally. Abdomen X-Ray 05/14/18 13:26 CONCLUSION: Weighted feeding tube tip in satisfactory position. Additional advancement may allow the tube to migrate into the small bowel Chest X-Ray 05/16/18 00:00 CONCLUSION: Stable endotracheal tube and right-sided PICC line. Stable appearance of a large layering pleural effusion within the right hemithorax. Physical Exam: GENERAL: Obese male, on the vent, sedated, NAD SKIN: Cool and dry. no rash. HEAD: Atraumatic. Normocephalic. EYES: Face mildly edematous. NO icterus, no injection ENT: orally intubated NECK: Trachea midline. No JVD. CARDIOVASCULAR: RRR, no murmurs RESPIRATORY: Coarse BS mikhail, decreased at bases GASTROINTESTINAL: soft abdomen, obese, no reaction to palpation MUSCULOSKELETAL: Extremities without clubbing, cyanosis, + 2 edema. NEUROLOGICAL: sedated PSYCHIATRIC: unable to assess : Stone in place ,urine clear LINE: NO evidence of infection Assessment and Plan - Plan Sepsis ongoing possible new. PNA, probably aspiration Acute VDRF on rotaprone bed. MSSA pneumonia. GNR pneumonia: Kleb, Enterobacter Morbid obesity with likely obesity- hypoventilation sd Coag neg staph bacteremia, low grade doubt clin significance New fever Leukocytosis diarrhea, c.diff negative UA negative Recs: cont Ceftriaxone Continue Oxacillin Follow C/S Follow temps Monitor progress Plans for trach noted D/W RN Spoke with father at bedside
[2018-05-16 10:35] LABS: Alanine Aminotransferase 118 U/L (9-52); Albumin 2.6 g/dL (3.4-5.0); Alkaline Phosphatase 76 U/L (45-117); Aspartate Aminotransferase 29 U/L (15-39); Blood Urea Nitrogen 23 mg/dL (7-18); Calcium 8.5 mg/dL (8.5-10.1)
[2018-05-16 10:36] LABS: Chloride 104 meq/L (98-107); Glucose,Random 148 mg/dL (74-106); Magnesium 2.2 mg/dL (1.5-2.5); Sodium 140 meq/L (136-145)
[2018-05-16 10:37] LABS: Anion Gap 13 meq/L (5-15); Carbon Dioxide 23.4 meq/L (21.0-32.0); Phosphorus 3.6 mg/dL (2.5-4.9); Total Protein 7.9 g/dL (6.4-8.2)
[2018-05-16 10:38] LABS: Glomerular Filtration Rate Greater Than 89 mL/min (>89)
[2018-05-16 10:52] LABS: Baso % (Auto) 0.2 % (0.0-2.0); Hematocrit 33.3 % (39.0-51.0); Lymph # (Auto) 2.1 th/mm3 (1.0-4.8); Lymph % (Auto) 11.3 % (9.0-44.0); Mean Corpuscular HGB Conc 33.1 % (32.0-36.0); Mean Corpuscular Hemoglobin 29.6 pg (27.0-34.0); Mean Corpuscular Volume 89.4 fL (80.0-100.0); Mean Platelet Volume 8.4 fL (7.0-11.0); Mono # (Auto) 1.4 th/mm3 (0.0-0.9); Mono % (Auto) 7.5 % (0.0-8.0); Neut # (Auto) 14.7 th/mm3 (1.8-7.7); Platelet Count 345 th/mm3 (150-450); Red Blood Count 3.73 mil/mm3 (4.50-5.90); Red Cell Distribution Width 15.5 % (11.6-17.2); White Blood Count 18.2 th/mm3 (4.0-11.0)
[2018-05-16 11:22] LABS: Lymphocytes 9 % (9-44); Monocytes 8 % (0-8); Platelet Estimate Normal (Normal); Platelet Morphology Normal (Normal)
[2018-05-16] MEDS ORDERED: EPOPROSTENOL NEB SCH ×2 (12:30)
[2018-05-16] MEDS: Midazolam 100 MG/100 ML Inj 100 MG/100 ML BAG IV.CONT PRN ×2 (12:30→19:59)
[2018-05-16] MEDS ORDERED: SODIUM CHLOR 0.9% NEB SCH ×2 (12:30)
[2018-05-16] MEDS: EPOPROSTENOL NEB SCH (17:42)
[2018-05-16] MEDS: SODIUM CHLOR NEB SCH (17:42)
[2018-05-17] MEDS: Insulin NovoLOG Aspart Correctional Sugar Inj SQ SCH ×4 (00:37→18:25)
[2018-05-17] MEDS: Artificial Tears Opth Drops 15 ML Bottle EACH EYE SCH ×3 (00:37→16:30)
[2018-05-17] MEDS: Propofol 1000 mg/100 ml Inj 1,000 MG/100 ML BOTTLE IV.CONT PRN ×10 (00:41→22:00)
[2018-05-17] MEDS: Potassium Chlor 40 mEq Premix 40 MEQ/100 ML PIGGYBACK IV.SIG PRN ×2 (02:54→09:52)
[2018-05-17] MEDS: Dexmedetomidine Inj 1,000 MCG in Sodium Chlor 0.9% Inj 240 ML IV.CONT PRN ×3 (02:55→18:26)
[2018-05-17 05:37] LABS: Baso % (Auto) 0.1 % (0.0-2.0); Eos % (Auto) 0.1 % (0.0-4.0); Hematocrit 32.5 % (39.0-51.0); Hemoglobin 10.7 gm/dL (13.0-17.0); Lymph # (Auto) 2.9 th/mm3 (1.0-4.8); Lymph % (Auto) 18.9 % (9.0-44.0); Mean Corpuscular HGB Conc 32.9 % (32.0-36.0); Mean Corpuscular Hemoglobin 29.4 pg (27.0-34.0); Mean Corpuscular Volume 89.3 fL (80.0-100.0); Mean Platelet Volume 8.2 fL (7.0-11.0); Mono # (Auto) 1.3 th/mm3 (0.0-0.9); Mono % (Auto) 8.6 % (0.0-8.0); Neut # (Auto) 11.1 th/mm3 (1.8-7.7); Neut % (Auto) 72.3 % (16.0-70.0); Platelet Count 333 th/mm3 (150-450); Red Blood Count 3.64 mil/mm3 (4.50-5.90); Red Cell Distribution Width 15.3 % (11.6-17.2); White Blood Count 15.4 th/mm3 (4.0-11.0)
[2018-05-17] MEDS: fentaNYL 10 mcg/mL Premix Drip 2,500 MCG/250 ML BAG IV.SIG PRN ×3 (06:02→19:54)
[2018-05-17] MEDS: MethylPREDNISolone Sod Succinate Inj 40 MG/ML Vial IV.PUSH SCH ×3 (06:02→21:44)
[2018-05-17 06:17] LABS: Alanine Aminotransferase 230 U/L (9-52); Albumin 2.5 g/dL (3.4-5.0); Alkaline Phosphatase 75 U/L (45-117); Anion Gap 12 meq/L (5-15); Aspartate Aminotransferase 108 U/L (15-39); Blood Urea Nitrogen 26 mg/dL (7-18); Calcium 8.6 mg/dL (8.5-10.1); Carbon Dioxide 22.7 meq/L (21.0-32.0); Chloride 106 meq/L (98-107); Glomerular Filtration Rate Greater Than 89 mL/min (>89); Glucose,Random 129 mg/dL (74-106); Magnesium 2.1 mg/dL (1.5-2.5); Potassium 3.2 meq/L (3.5-5.1); Sodium 141 meq/L (136-145); Total Protein 7.6 g/dL (6.4-8.2)
--- NOTE | 2018-05-17 07:03 | XR ---
EXAM DATE: 05/17/2018 6:58 AM EST AGE/SEX: 22 years / Male INDICATIONS: Evaluate for obstruction. CLINICAL DATA: This is the patient's subsequent encounter. Patient reports that signs and symptoms h ave been present for 3 weeks and indicates a pain score of Nonresponsive. MEDICAL/SURGICAL HISTORY: . Smoker. Tonsillectomy. COMPARISON: [facility] [place]EN 1V KUB, 05/14/2018. . FINDINGS: Multiple views of the abdomen demonstrate an NG tube with the proximal port overlying the stomach an d a Dobbhoff tube with the distal tip within the stomach. There is a significant amount of bowel gas present. No evidence of bowel obstruction. CONCLUSION: No evidence of bowel obstruction. Dobbhoff tube is seen within the stomach and the proximal port of t he nasogastric tube is within the proximal stomach. Electronically signed by: Chuyita Kraus MD 05/17/2018 7:01 AM EST
--- NOTE | 2018-05-17 07:12 | P.PNCC ---
Subjective Subjective Remarks/Hospital Course: Patient is approximately 22 years old male obese, was found on the floor by a family member, downtime is unknown. EMS was called, patient was given Narcan with no response, he was intubated on the scene, apparently GCS 3. Found bag of PCP next to the patient. Patient has history of psychiatric disorder ? bipolar disorder and I am told he has attempted suicide in the past. There is also mention about suspicion of ethylene glycol ingestion, but his serum osmolality is 307 his osmolar gap is only 13. Bicarb is 26, ethylene glycol seems unlikely. Ethanol was negative urine drug screen only positive for benzo. I evaluated the patient in the ICU at the [facility]. Patient had a CT of the head which was negative. Rest of the workup unremarkable except for bibasilar atelectasis/aspiration pneumonia. Patient's white count is elevated at 17.1, glucose is 232 lactic acid was 2.8. He received multiple fluid boluses. At this time he is not on any sedation but remains unresponsive no response to deep pain 04/28 Patient remains intubated off sedation unresponsive. Afebrile. 04/29: MRI of the brain revealed no acute intracranial findings. EEG to be performed tomorrow. More arousable and moves all 4 extremities but not following commands. Placed on dexamethasone E drip. 2 feeds will be restarted 04/30: T-max 101.4. Currently afebrile. No bowel movement since admission. Arousable and follows simple commands late last night but currently on sedation for agitation. Increased FiO2 noted. Will attempt to gently diurese and continue antibiotics for pansensitive staph aureus/group a beta strep sputum 05/01 Patient is sedated with Fentanyl, Diprivan and intubated. T:101.1 at 5am. Placed on APRV overnight. 05/02 Patient is sedated with Diprivan and Fentanyl drips. Tmax 101.3, on PC/AC with PEEP:12, FIO2 80%, IP:30 05/03 Patient is heavily sedated with Diprivan, Fentanyl and Versed . On PC/AC with PEEP: 14 and FIO2 100$ sats 92%, CXR yesterday showed diffuse b/l pulm infiltrates, started on Flolan nebs. Had Tmax 102.6 last night. 05/04 Patient was placed on rotoprone bed yesterday sedated with Diprivan, Versed and Fentanyl infusion and on neuromuscular blockade( Nimbex) On PC/AC His FIO2 requirements is better now on FIO2:50% from 100% with PEEP:14. T:102.6 05/05 Patient remains intubated and sedated on Bumex drip 0.5mg/hr, T:99.7 at 3am. On PC/AC with PEEP:1 and FIO2 60%- sats 95%. 05/06 Patient remains sedated and intubated on rotoprone bed with improvements in his oxygenation. Now on PC/AC with PEEP:10, FIO2 40%. Afebrile. On Bumex drip 0.5mg/hr. 05/07 Patient remains on rotoprone bed sedated and on Nimbex drip. He is also on Bumex drip 0.5mg/hr with good urine output . 05/08 Patient remains sedated and intubated. On Flolan, and Bumex drip. Afebrile. 05/09 Patient desat overnight now on PC/AC with PEEP:10 and FIO2 100% sats 96%. Had T: 100.4 at midnight. Sputum cx 05/07 GNR. Remains sedated on Flolan and Bumex drip. 05/10: Resting in bed. Remains on PC/AC rate increased to 16. FiO2 80%. Low- grade fevers noted. Remains on epoprostenol and bumetanide drips. Hypertension noted. Aspirated this a.m. and so discontinued tube feeding. We will start PPN today. 05/11 Patient remains on rotoprone bed, sedated and intubated. Afebrile. On PC/ AC with PEEP;10 and FIO2 55%.On Flolan and Bumex drip 0.5mg/hr 05/12 Remains sedated, intubated and on Rotoprone bed. PC/AC with PEEP: 12 and FIO2 70% sats 96%. T:100.4 last night. On Flolan and Bumex drip. 05/14: Off rotaprone since yesterday, nimbex discontinued, PEEP 14 and FiO2 50% with sats in mid 90s. Still on flolan. 05/15: No acute issues overnight, plan is to wean PEEP slowly over the weekend for tracheostomy on Friday 05/18. 05/16: Flolan weaned yesterday, tolerated well, will continue to wean today. PEEP down to 10. O2 sats low to mid 90s. 05/17: TFs held overnight for high residuals; KUB showed Dobhoff tube in distal stomach with NGT in proximal stomach. Will hold for now, will need to be NPO at midnight for hopeful trach tomorrow. Continue PPN for now. Objective Vital Signs / I&O: Vital Signs 05/16/18 07:31 05/16/18 08:00 05/16/18 08:31 Temperature 99.0 F 100.2 F H 99.9 F H Pulse Rate 74 78 72 Respiratory Rate Blood Pressure 138/83 140/81 138/76 Pulse Oximetry 94 L 05/16/18 09:00 05/16/18 09:01 05/16/18 09:30 Temperature 100.0 F H 100.0 F H 100.2 F H Pulse Rate 75 75 70 Respiratory Rate Blood Pressure 128/75 131/77 Pulse Oximetry 90 L 90 L 92 L 05/16/18 10:00 05/16/18 10:13 05/16/18 10:30 Temperature 99.9 F H 99.9 F H Pulse Rate 74 72 Respiratory Rate 16 Blood Pressure 136/84 135/80 Pulse Oximetry 92 L 91 L 92 L 05/16/18 11:00 05/16/18 11:30 05/16/18 12:00 Temperature 99.7 F H 99.5 F 99.5 F Pulse Rate 75 74 74 Respiratory Rate Blood Pressure 127/81 134/74 132/78 Pulse Oximetry 92 L 92 L 92 L 05/16/18 12:30 05/16/18 12:58 05/16/18 13:00 Temperature 99.5 F 99.9 F H Pulse Rate 73 79 Respiratory Rate 16 Blood Pressure 133/75 Pulse Oximetry 92 L 91 L 90 L 05/16/18 13:01 05/16/18 13:31 05/16/18 14:00 Temperature 99.9 F H 99.9 F H 98.8 F Pulse Rate 79 75 76 Respiratory Rate Blood Pressure 135/70 126/77 Pulse Oximetry 90 L 92 L 89 L 05/16/18 14:01 05/16/18 14:31 05/16/18 15:00 Temperature 99.0 F 99.7 F H 99.5 F Pulse Rate 76 73 72 Respiratory Rate Blood Pressure 123/63 128/66 132/72 Pulse Oximetry 89 L 90 L 92 L 05/16/18 15:31 05/16/18 16:00 05/16/18 16:01 Temperature 99.9 F H 100.2 F H 100.2 F H Pulse Rate 73 73 74 Respiratory Rate Blood Pressure 125/72 127/70 Pulse Oximetry 92 L 91 L 91 L 05/16/18 16:18 05/16/18 17:24 05/16/18 19:32 Temperature Pulse Rate Respiratory Rate 16 16 16 Blood Pressure Pulse Oximetry 91 L 94 L 05/16/18 20:00 05/16/18 23:24 05/16/18 23:35 Temperature 99.5 F Pulse Rate 72 Respiratory Rate 16 16 Blood Pressure 132/70 Pulse Oximetry 92 L 91 L 94 L 05/17/18 00:00 05/17/18 04:00 05/17/18 05:11 Temperature 100.4 F H 101.3 F H Pulse Rate 72 83 Respiratory Rate 16 16 16 Blood Pressure 133/76 127/62 Pulse Oximetry 95 95 100 Intake & Output 05/16/18 05/17/18 05/17/18 18:59 06:59 18:59 Intake Total 2118.3 / 2118.3 3350 / 3350 Output Total 5000 / 5000 3900 / 3900 Balance -2881.7 / -2881.7 -550 / -550 Weight 155.9 kg Intake: IV 2118.3 / 2118.3 3050 / 3050 Precedex Inj 1,000 MCG In NS 452.3 / 452.3 750 / 750 Inj 240 ML @ 0.2 MCG/KG/HR 8.4 mls/hr IV.CONT TITRATE PRN Rx#: [id number] Versed Inj 100 mg In 100 ml @ 2 100 / 100 MG/HR 2 mls/hr IV.CONT TITRATE PRN Rx#:[id number] Versed Inj 50 mg In 50 ml @ 2 100 / 100 MG/HR 2 mls/hr IV.CONT TITRATE PRN Rx#:[id number] Diprivan 1000 mg/100 ml Inj 1, 600 / 600 400 / 400 000 mg In 100 ml @ 5 MCG/KG/MIN 4.77 mls/hr IV.CONT TITRATE PRN Rx#:[id number] MVI-12 Inj 10 ML Folvite Inj 1 900 / 900 MG In Clinimix E 4.25%/D5W Inj 2,000 ML @ 83 mls/hr IV.SIG Q24H [facility]ION Rx#:[id number] Prostaphlin Inj 2 GM In NS Inj 400 / 400 300 / 300 100 ML @ 200 mls/hr IV.SIG Q4H [facility]ARRION Rx#:[id number] KCl 40 mEq Premix Inj 40 meq In 100 / 100 100 ml @ 25 mls/hr IV.SIG Q2H PRN Rx#:[id number] Rocephin Inj 2,000 MG In NS Inj 100 / 100 100 ML @ 200 mls/hr IV.SIG Q24H [facility]ARRION Rx#:[id number] fentaNYL 10 mcg/mL Premix Drip 366 / 366 500 / 500 2,500 mcg In 250 ml @ 50 MCG/HR 5 mls/hr IV.SIG TITRATE PRN Rx #:[id number] Flolan (30,000 ng/mL) Neb 45 ML 100 / 100 In NS Inj 55 ML @ 5 mls/hr NEB Q8H DARRION Rx#:[id number] Water Bolus Amount 300 / 300 Output: Stool 50 / 50 Urine Amount (Catheter) 5000 / 5000 3850 / 3850 Indwelling Urethral Catheter 5000 / 5000 3850 / 3850 Other: Date of Last Bowel Movement 05/16/18 05/17/18 Result Diagrams: 05/17/18 05:15 05/17/18 05:15 Objective Remarks: GENERAL: Intubated and sedated SKIN: Warm and dry HEAD: NCAT, PERRL NECK: Supple, trachea midline. No JVD or lymphadenopathy. CARDIOVASCULAR: Regular rate and rhythm RESPIRATORY: Improved breath sounds bilaterally, no vent dyssynchrony GASTROINTESTINAL: Abdomen obese, soft, non-tender. MUSCULOSKELETAL: Trace peripheral edema. Neuro: RASS 0 to -1, easily arousable Assessment and Plan - Assessment and Plan Plan: NEURO/PSYCH: Acute metabolic encephalopathy Suspected PCP overdose Suspected ethylene glycol overdose Suicide attempt -Still requiring high levels of sedation to prevent vent dyssynchrony-- currently on precedex, propofol, versed, fentanyl, and is getting scheduled seroquel and oxycodone. Hopefully we can wean/ discontinue most sedation after trach -Psychiatric consult after neurological recovery, previously on Wellbutrin. -CT of the head negative. MRI of brain negative. -EEG 04/30 and follow-up EEG 04/28 with no epileptic activity RESP: Acute hypoxemic respiratory failure Severe ARDS on Prone therapy Bibasilar aspiration pneumonitis Tobacco abuse -Continue with vent support keep sats >92% -On PC/AC RR 16, PEEP 10 and FiO2 50%, wean FiO2 and PEEP as tolerated. Hopefully can wean PEEP to 8 in lieu of trach tomorrow -Ventilator bundle. Bronchodilators (ipratropium/albuterol, Q4), Solumedrol 40mg Q8 -Continue to wean flolan, hopefully d/c today s/p bronch 05/02 thick secretions suctioned to clear. No evidence of EBL or bleeding. -Decrease nicotine patch dose tomorrow CV: Essential hypertension -Monitor HR and BP keep MAP>65mmHg -On Lopressor 50mg TID -Echo 04/28: EF 60-65%, PASP 36mmHg GI: Elevated ALT Hypoalbuminemia - IV famotidine. -Docusate serum/senna 1 tablet twice daily for bowel regimen. Lactulose 30 cc twice daily and MiraLAX 17 g twice daily. Renal/FEN/: -Monitor renal function, I/O's, electrolytes replacement as needed -Continue Bumex drip at 0.5 mg/hr, urine output excellent, will d/c this tomorrow in favor of intermittent dosing. Still fairly edematous on exam. ID: MSSA/group A beta strep pneumonia Superadded Enterobacter/Klebsiella ammonia Abx per ID- On Rocephin and Oxacillin- monitor for signs of infection 05/07 Sputm cx: andrews-sensitive Kleb pneumonia, Enterobacter. Repeat cultures sent yesterday. 04/27 Sputum: Staph aureus/MSSA and beta strep not group A. 05/03 BC: Coag neg staph 05/02 bronch cx: Staph Aureus ID is following HEME: Normocytic anemia Leukocytosis -Type & screen, coags ordered for AM -Persistent leukocytosis due to sepsis and steroid use ENDO/FEN: Hyperglycemia -Electrolyte replacement per protocol -Sliding scale insulin PROPH: GI prophylaxis- On Pepcid DVT prophylaxis- Lovenox 40mg SQ BID b/l LE thrombus of posterior veins within calf while on Heparin SQ -switched to Lovenox 40mg SQ BID giving his weight. Doppler US LE: thrombosis of the posterior tibial vein within the calf bilaterally. Check follow-up ultrasound on Friday 05/18 to eval for progression LINES: -Utilize peripheral IVs, [facility] central line placed in ED 04/27-d/janina. PICC placed on 05/08/18 Level 2 follow up To help prompt me to consider important information that might be impacting today's encounter and assessment, information from prior notes written by myself or my colleagues may have been "brought forward" into today's note. My signature on this note, however, is an attestation that I personally performed the exam, history, and/or decision-making noted today, and, unless otherwise indicated, the interactions with patient, family, and staff as well as the review of records all occurred today. I also attest that the listed assessment and stated plan reflect my best clinical judgment today based on the combination of historical information, prior notes, and today's exam/ interactions. Code Status: Full
[2018-05-17] MEDS: Bumetanide Inj 25 MG/100 ML BAG IV.CONT SCH (07:32)
[2018-05-17] MEDS: Pantoprazole Inj 40 MG Vial IV.PUSH SCH (08:58)
[2018-05-17] MEDS: Enoxaparin Inj 40 MG/0.4 ML Syringe SQ SCH ×2 (08:58→21:44)
[2018-05-17] MEDS: EPOPROSTENOL NEB SCH ×2 (08:59→09:47)
[2018-05-17] MEDS: SODIUM CHLOR NEB SCH ×2 (08:59→09:47)
[2018-05-17] MEDS: Polyethylene Glycol 3350 17 GM Packet PO SCH ×2 (09:00→21:44)
[2018-05-17] MEDS: QUEtiapine 25 MG Tablet PO SCH ×2 (09:00→21:44)
[2018-05-17] MEDS: Heparin Central Flush 100 UNIT/ML 5 ML Vial IV.FLUSH SCH (09:00)
[2018-05-17] MEDS: Senna/Docusate Sodium 8.6/50 MG Tablet PO SCH ×2 (09:00→21:44)
[2018-05-17] MEDS: Metoprolol Tartrate 50 MG Tablet PO SCH ×3 (09:01→18:24)
[2018-05-17] MEDS: Midazolam 100 MG/100 ML Inj 100 MG/100 ML BAG IV.CONT PRN ×2 (13:57→22:17)
[2018-05-17] MEDS: Multivitamin Inj 10 ML, Folic Acid Inj 1 MG in AA 4.25 %/D5W - Electrolytes 2,000 ML IV.SIG SCH (21:18)
[2018-05-18] MEDS: Propofol 1000 mg/100 ml Inj 1,000 MG/100 ML BOTTLE IV.CONT PRN ×11 (00:04→22:58)
[2018-05-18] MEDS: Insulin NovoLOG Aspart Correctional Sugar Inj SQ SCH ×5 (00:06→23:32)
--- NOTE | 2018-05-18 01:51 | XR ---
EXAM DATE: 05/18/2018 1:46 AM EST AGE/SEX: 22 years / Male INDICATIONS: Shortness of breath, possible pulmonary disease. CLINICAL DATA: This is the patient's subsequent encounter. Patient reports that signs and symptoms h ave been present for 3 weeks and indicates a pain score of Nonresponsive. MEDICAL/SURGICAL HISTORY: None. Tonsillectomy. COMPARISON: C, CHEST 1V SINGLE AP, 05/16/2018. . FINDINGS: Single AP view the chest. Endotracheal tube, nasogastric tube, right-sided PICC line remain in place. Persistent bilateral pulmonary opacity. No significant interval change. No evidence of pneumothorax. Possible small bilateral pleural effusions. CONCLUSION: No significant interval change. Persistent right greater than left pulmonary opacity. Electronically signed by: Uriel Crump MD 05/18/2018 1:49 AM EST
[2018-05-18] MEDS: Dexmedetomidine Inj 1,000 MCG in Sodium Chlor 0.9% Inj 240 ML IV.CONT PRN ×5 (01:58→21:15)
[2018-05-18 02:24] LABS: ABG Base Excess -1.8 mmol/L (-2-2); ABG PCO2 29 mmHg (38-42); ABG PO2 66 mmHG (61-120)
[2018-05-18] MEDS: Artificial Tears Opth Drops 15 ML Bottle EACH EYE SCH ×4 (03:45→23:33)
[2018-05-18] MEDS: fentaNYL 10 mcg/mL Premix Drip 2,500 MCG/250 ML BAG IV.SIG PRN ×3 (03:46→19:25)
[2018-05-18] MEDS: MethylPREDNISolone Sod Succinate Inj 40 MG/ML Vial IV.PUSH SCH ×2 (05:18→20:15)
[2018-05-18] MEDS ORDERED: Cathflo Activase Inj 2 MG Vial IV.PUSH ONE (06:00)
[2018-05-18] MEDS: Midazolam 100 MG/100 ML Inj 100 MG/100 ML BAG IV.CONT PRN ×3 (06:44→22:43)
[2018-05-18 07:53] LABS: Activated Partial Thrombo Time 21.5 sec (23.4-31.7); Baso % (Auto) 0.2 % (0.0-2.0); Eos % (Auto) 0.1 % (0.0-4.0); Hematocrit 33.3 % (39.0-51.0); Hemoglobin 10.9 gm/dL (13.0-17.0); INR 1.3 Ratio; Lymph % (Auto) 11.9 % (9.0-44.0); Mean Corpuscular HGB Conc 32.9 % (32.0-36.0); Mean Corpuscular Hemoglobin 29.7 pg (27.0-34.0); Mean Corpuscular Volume 90.4 fL (80.0-100.0); Mean Platelet Volume 8.5 fL (7.0-11.0); Mono # (Auto) 1.4 th/mm3 (0.0-0.9); Mono % (Auto) 8.4 % (0.0-8.0); Neut # (Auto) 13.1 th/mm3 (1.8-7.7); Neut % (Auto) 79.4 % (16.0-70.0); Platelet Count 275 th/mm3 (150-450); Prothrombin Time 12.8 sec (9.8-11.6); Red Blood Count 3.68 mil/mm3 (4.50-5.90); Red Cell Distribution Width 15.9 % (11.6-17.2); White Blood Count 16.5 th/mm3 (4.0-11.0)
[2018-05-18 08:13] LABS: Albumin 2.6 g/dL (3.4-5.0); Anion Gap 8 meq/L (5-15); Aspartate Aminotransferase 23 U/L (15-39); Blood Urea Nitrogen 27 mg/dL (7-18); Calcium 8.7 mg/dL (8.5-10.1); Carbon Dioxide 25.6 meq/L (21.0-32.0); Chloride 104 meq/L (98-107); Glomerular Filtration Rate Greater Than 89 mL/min (>89); Glucose,Random 149 mg/dL (74-106); Magnesium 2.2 mg/dL (1.5-2.5); Potassium 3.9 meq/L (3.5-5.1); Sodium 138 meq/L (136-145)
[2018-05-18 08:14] LABS: Alanine Aminotransferase 153 U/L (9-52)
[2018-05-18 08:17] LABS: Alkaline Phosphatase 70 U/L (45-117); Total Protein 7.8 g/dL (6.4-8.2)
[2018-05-18] MEDS: Senna/Docusate Sodium 8.6/50 MG Tablet PO SCH ×2 (08:17→20:16)
[2018-05-18] MEDS: Pantoprazole Inj 40 MG Vial IV.PUSH SCH (08:17)
[2018-05-18] MEDS: Enoxaparin Inj 40 MG/0.4 ML Syringe SQ SCH ×2 (08:17→20:15)
[2018-05-18] MEDS: Heparin Central Flush 100 UNIT/ML 5 ML Vial IV.FLUSH SCH (08:17)
[2018-05-18] MEDS: Metoprolol Tartrate 50 MG Tablet PO SCH ×3 (08:17→17:12)
[2018-05-18] MEDS: Polyethylene Glycol 3350 17 GM Packet PO SCH ×2 (08:18→20:15)
[2018-05-18] MEDS: QUEtiapine 25 MG Tablet PO SCH (08:19)
--- NOTE | 2018-05-18 09:19 | P.PNCC ---
Subjective Subjective Remarks/Hospital Course: Patient is approximately 22 years old male obese, was found on the floor by a family member, downtime is unknown. EMS was called, patient was given Narcan with no response, he was intubated on the scene, apparently GCS 3. Found bag of PCP next to the patient. Patient has history of psychiatric disorder ? bipolar disorder and I am told he has attempted suicide in the past. There is also mention about suspicion of ethylene glycol ingestion, but his serum osmolality is 307 his osmolar gap is only 13. Bicarb is 26, ethylene glycol seems unlikely. Ethanol was negative urine drug screen only positive for benzo. I evaluated the patient in the ICU at the [facility]. Patient had a CT of the head which was negative. Rest of the workup unremarkable except for bibasilar atelectasis/aspiration pneumonia. Patient's white count is elevated at 17.1, glucose is 232 lactic acid was 2.8. He received multiple fluid boluses. At this time he is not on any sedation but remains unresponsive no response to deep pain 04/28 Patient remains intubated off sedation unresponsive. Afebrile. 04/29: MRI of the brain revealed no acute intracranial findings. EEG to be performed tomorrow. More arousable and moves all 4 extremities but not following commands. Placed on dexamethasone E drip. 2 feeds will be restarted 04/30: T-max 101.4. Currently afebrile. No bowel movement since admission. Arousable and follows simple commands late last night but currently on sedation for agitation. Increased FiO2 noted. Will attempt to gently diurese and continue antibiotics for pansensitive staph aureus/group a beta strep sputum 05/01 Patient is sedated with Fentanyl, Diprivan and intubated. T:101.1 at 5am. Placed on APRV overnight. 05/02 Patient is sedated with Diprivan and Fentanyl drips. Tmax 101.3, on PC/AC with PEEP:12, FIO2 80%, IP:30 05/03 Patient is heavily sedated with Diprivan, Fentanyl and Versed . On PC/AC with PEEP: 14 and FIO2 100$ sats 92%, CXR yesterday showed diffuse b/l pulm infiltrates, started on Flolan nebs. Had Tmax 102.6 last night. 05/04 Patient was placed on rotoprone bed yesterday sedated with Diprivan, Versed and Fentanyl infusion and on neuromuscular blockade( Nimbex) On PC/AC His FIO2 requirements is better now on FIO2:50% from 100% with PEEP:14. T:102.6 05/05 Patient remains intubated and sedated on Bumex drip 0.5mg/hr, T:99.7 at 3am. On PC/AC with PEEP:1 and FIO2 60%- sats 95%. 05/06 Patient remains sedated and intubated on rotoprone bed with improvements in his oxygenation. Now on PC/AC with PEEP:10, FIO2 40%. Afebrile. On Bumex drip 0.5mg/hr. 05/07 Patient remains on rotoprone bed sedated and on Nimbex drip. He is also on Bumex drip 0.5mg/hr with good urine output . 05/08 Patient remains sedated and intubated. On Flolan, and Bumex drip. Afebrile. 05/09 Patient desat overnight now on PC/AC with PEEP:10 and FIO2 100% sats 96%. Had T: 100.4 at midnight. Sputum cx 05/07 GNR. Remains sedated on Flolan and Bumex drip. 05/10: Resting in bed. Remains on PC/AC rate increased to 16. FiO2 80%. Low- grade fevers noted. Remains on epoprostenol and bumetanide drips. Hypertension noted. Aspirated this a.m. and so discontinued tube feeding. We will start PPN today. 05/11 Patient remains on rotoprone bed, sedated and intubated. Afebrile. On PC/ AC with PEEP;10 and FIO2 55%.On Flolan and Bumex drip 0.5mg/hr 05/12 Remains sedated, intubated and on Rotoprone bed. PC/AC with PEEP: 12 and FIO2 70% sats 96%. T:100.4 last night. On Flolan and Bumex drip. 05/14: Off rotaprone since yesterday, nimbex discontinued, PEEP 14 and FiO2 50% with sats in mid 90s. Still on flolan. 05/15: No acute issues overnight, plan is to wean PEEP slowly over the weekend for tracheostomy on Friday 05/18. 05/16: Flolan weaned yesterday, tolerated well, will continue to wean today. PEEP down to 10. O2 sats low to mid 90s. 05/17: TFs held overnight for high residuals; KUB showed Dobhoff tube in distal stomach with NGT in proximal stomach. Will hold for now, will need to be NPO at midnight for hopeful trach tomorrow. Continue PPN for now. 05/18: Patient had a desat event last night and had to have PEEP increased to 14. Pulse ox probe changed this morning and noted to be 100%, now weaned back down to PEEP 10 and FiO2 60%. Will continue to wean FiO2. Flolan off since yesterday. Trach today or tomorrow. Objective Vital Signs / I&O: Vital Signs 05/17/18 10:00 05/17/18 10:01 05/17/18 10:30 Temperature 101.1 F H 101.1 F H 101.1 F H Pulse Rate 84 84 84 Respiratory Rate Blood Pressure 106/68 107/62 Pulse Oximetry 96 96 97 05/17/18 10:57 05/17/18 11:00 05/17/18 11:01 Temperature 101.1 F H 101.1 F H Pulse Rate 85 86 Respiratory Rate 16 Blood Pressure 106/64 Pulse Oximetry 96 96 96 05/17/18 11:30 05/17/18 12:00 05/17/18 12:01 Temperature 101.3 F H 101.3 F H 101.3 F H Pulse Rate 86 86 87 Respiratory Rate Blood Pressure 108/56 L 100/70 Pulse Oximetry 96 97 97 05/17/18 12:30 05/17/18 13:00 05/17/18 13:01 Temperature 101.5 F H 101.5 F H 101.5 F H Pulse Rate 87 88 89 Respiratory Rate Blood Pressure 103/68 95/65 L Pulse Oximetry 96 94 L 94 L 05/17/18 13:30 05/17/18 14:00 05/17/18 14:30 Temperature 101.5 F H 101.3 F H 100.8 F H Pulse Rate 87 87 86 Respiratory Rate 17 Blood Pressure 98/68 L 102/74 100/72 Pulse Oximetry 94 L 94 L 92 L 05/17/18 15:00 05/17/18 15:31 05/17/18 16:00 Temperature 100.4 F H 99.0 F 99.0 F Pulse Rate 84 83 83 Respiratory Rate 16 Blood Pressure 107/67 122/70 Pulse Oximetry 91 L 91 L 92 L 05/17/18 16:01 05/17/18 16:31 05/17/18 17:00 Temperature 99.0 F 100.9 F H 101.5 F H Pulse Rate 83 85 87 Respiratory Rate Blood Pressure 116/72 121/68 Pulse Oximetry 93 L 95 90 L 05/17/18 17:01 05/17/18 17:31 05/17/18 18:00 Temperature 101.7 F H 102.0 F H 102.4 F H Pulse Rate 87 89 92 H Respiratory Rate Blood Pressure 105/74 113/61 113/62 Pulse Oximetry 90 L 88 L 93 L 05/17/18 18:31 05/17/18 19:00 05/17/18 19:31 Temperature 100.2 F H 102.9 F H 102.9 F H Pulse Rate 93 H 92 H 93 H Respiratory Rate 16 Blood Pressure 109/75 110/63 108/71 Pulse Oximetry 92 L 92 L 91 L 05/17/18 20:00 05/18/18 00:00 05/18/18 01:47 Temperature 102.6 F H 98.9 F Pulse Rate 96 H 68 Respiratory Rate 14 Blood Pressure 98/56 L 127/59 L Pulse Oximetry 92 L 86 L 92 L 05/18/18 04:00 05/18/18 07:21 Temperature 100.2 F H Pulse Rate 80 Respiratory Rate 14 14 Blood Pressure 114/58 L Pulse Oximetry 92 L 98 Intake & Output 05/17/18 05/18/18 05/18/18 18:59 06:59 18:59 Intake Total 1901 4510.2 / 4510.2 100 / 100 Output Total 4850 / 4850 2250 / 2250 Balance -2948 / -2948 2260.2 / 2260.2 100 / 100 Weight 153.8 kg Intake: IV 1901 4110.2 / 4110.2 100 / 100 Bumex Inj 25 mg In 100 ml @ 0.5 52 / 52 MG/HR 2 mls/hr IV.CONT .Q24H [facility] Rx#:[id number] Precedex Inj 1,000 MCG In NS 500 / 500 500 / 500 Inj 240 ML @ 0.2 MCG/KG/HR 8.4 mls/hr IV.CONT TITRATE PRN Rx#: [id number] Versed Inj 100 mg In 100 ml @ 2 200 / 200 MG/HR 2 mls/hr IV.CONT TITRATE PRN Rx#:[id number] Diprivan 1000 mg/100 ml Inj 1, 500 / 500 500 / 500 100 / 100 000 mg In 100 ml @ 5 MCG/KG/MIN 4.77 mls/hr IV.CONT TITRATE PRN Rx#:[id number] MVI-12 Inj 10 ML Folvite Inj 1 2009.2 / 2009.2 MG In Clinimix E 4.25%/D5W Inj 2,000 ML @ 83 mls/hr IV.SIG Q24H [facility] Rx#:[id number] Prostaphlin Inj 2 GM In NS Inj 300 / 300 300 / 300 100 ML @ 200 mls/hr IV.SIG Q4H [facility] Rx#:[id number] KCl 40 mEq Premix Inj 40 meq In 100 / 100 100 ml @ 25 mls/hr IV.SIG Q2H PRN Rx#:[id number] Rocephin Inj 2,000 MG In NS Inj 100 / 100 100 ML @ 200 mls/hr IV.SIG Q24H [facility] Rx#:[id number] fentaNYL 10 mcg/mL Premix Drip 250 / 250 500 / 500 2,500 mcg In 250 ml @ 50 MCG/HR 5 mls/hr IV.SIG TITRATE PRN Rx #:[id number] Flolan (30,000 ng/mL) Neb 22.5 100 / 100 ML In NS Inj 77.5 ML @ 5 mls/hr NEB Q8H [facility] Rx#:[id number] Water Bolus Amount 400 / 400 Output: Stool 100 / 100 Urine Amount (Catheter) 4150 / 4150 1450 / 1450 Indwelling Urethral Catheter 4150 / 4150 1450 / 1450 Gastric Drainage 700 / 700 700 / 700 Orogastric Tube 700 / 700 700 / 700 Other: Date of Last Bowel Movement 05/17/18 05/18/18 Result Diagrams: 05/18/18 07:00 05/18/18 07:00 Objective Remarks: GENERAL: Intubated and sedated SKIN: Warm and dry HEAD: NCAT, PERRL NECK: Supple, trachea midline CARDIOVASCULAR: Regular rate and rhythm in 80s RESPIRATORY: Improved breath sounds bilaterally, no crackles or rales GASTROINTESTINAL: Abdomen obese, soft, non-tender. MUSCULOSKELETAL: Trace peripheral edema, unchanged Neuro: RASS 0 to -1, easily arousable Assessment and Plan - Assessment and Plan Plan: NEURO/PSYCH: Acute metabolic encephalopathy Suspected PCP overdose Suspected ethylene glycol overdose Suicide attempt -Continues to require high levels of sedation to prevent vent dyssynchrony-- currently on precedex, propofol, versed, fentanyl, and is getting scheduled oxycodone. Hopefully we can wean/ discontinue most sedation after trach -Given prolonged intubation/ sedation, it is expected that the patient will be quite delirious once we start to wean sedation and wake him up. I explained this to his father at length. -Psychiatric consult after neurological recovery, previously on Wellbutrin. -CT of the head negative. MRI of brain negative. -EEG 04/30 and follow-up EEG 04/28 with no epileptic activity RESP: Acute hypoxemic respiratory failure Severe ARDS on Prone therapy Bibasilar aspiration pneumonitis Tobacco abuse -Continue with vent support keep sats >92% -On PC/AC RR 16, PEEP 10 and FiO2 60%, wean FiO2 and PEEP as tolerated. Given patient's body habitus, PEEP should not be weaned less than 8. -Ventilator bundle. Bronchodilators (ipratropium/albuterol, Q4), Solumedrol 40mg Q8 -Flolan discontinued yesterday s/p bronch 05/02 thick secretions suctioned to clear. No evidence of EBL or bleeding. -Decrease nicotine patch dose today CV: Essential hypertension -Monitor HR and BP keep MAP>65mmHg -On Lopressor 50mg TID -Echo 04/28: EF 60-65%, PASP 36mmHg GI: Elevated ALT Hypoalbuminemia - IV famotidine. -Docusate serum/senna 1 tablet twice daily for bowel regimen. Lactulose 30 cc twice daily and MiraLAX 17 g twice daily. Having BMs, stool gravity manager in place. Renal/FEN/: -Monitor renal function, I/O's, electrolytes replacement as needed -D/C bumex gtt, start BID dosing and follow urine output. Patient has diuresed well over the past 3-4 days. ID: MSSA/group A beta strep pneumonia Superadded Enterobacter/Klebsiella ammonia Abx per ID- On Rocephin and Oxacillin- monitor for signs of infection 05/07 Sputm cx: andrews-sensitive Kleb pneumonia, Enterobacter. Repeat cultures sent yesterday. 04/27 Sputum: Staph aureus/MSSA and beta strep not group A. 05/03 BC: Coag neg staph 05/02 bronch cx: Staph Aureus ID is following HEME: Normocytic anemia Leukocytosis -Type & screen, coags ordered for AM -Persistent leukocytosis due to sepsis and steroid use ENDO/FEN: Hyperglycemia -Electrolyte replacement per protocol -Sliding scale insulin -Wean solumedrol from q8 to q12 PROPH: GI prophylaxis- On Pepcid DVT prophylaxis- Lovenox 40mg SQ BID switched to Lovenox 40mg SQ BID giving his weight. Doppler US LE: thrombosis of the posterior tibial vein within the calf bilaterally. * Check f/u US today to assess for progression LINES: -Utilize peripheral IVs, [facility] central line placed in ED 04/27-d/janina. PICC placed on 05/08/18 Level 2 follow up To help prompt me to consider important information that might be impacting today's encounter and assessment, information from prior notes written by myself or my colleagues may have been "brought forward" into today's note. My signature on this note, however, is an attestation that I personally performed the exam, history, and/or decision-making noted today, and, unless otherwise indicated, the interactions with patient, family, and staff as well as the review of records all occurred today. I also attest that the listed assessment and stated plan reflect my best clinical judgment today based on the combination of historical information, prior notes, and today's exam/ interactions. Code Status: Full
--- NOTE | 2018-05-18 10:59 | P.PNNEU ---
Subjective Subjective Comments: no acute events Active Medications: Active Medications Acetaminophen (Tylenol Liq) 650 mg PO Q6H PRN PRN Reason: FEVER Last Admin: 05/17/18 20:15 Dose: 650 mg Al Hydroxide/Mg Hydroxide (Milk Of Magnesia Liq) 30 ml PO Q12H PRN PRN Reason: Mild Constipation Albuterol (Albuterol Neb (Prn)) 2.5 mg NEB Q2HR NEB PRN PRN Reason: SHORTNESS OF BREATH/WHEEZING Last Admin: 05/15/18 14:46 Dose: 2.5 mg Artificial Tears (Tears Naturale Opth Drops) 1 drop EACH EYE Q8H [facility] Last Admin: 05/18/18 08:18 Dose: 1 drop Bisacodyl (Dulcolax Supp) 10 mg RECTAL DAILY PRN PRN Reason: SEVERE CONSITIPATION Bumetanide (Bumex Inj) 2 mg IV.PUSH BID@0900,1800 [facility] Dextrose (D50w Vial) 50 ml IV.PUSH UNSCH PRN PRN Reason: PER HYPOGLYCEMIA PROTOCOL Enoxaparin Sodium (Lovenox Inj) 40 mg SQ Q12HR [facility] Last Admin: 05/18/18 08:17 Dose: 40 mg Glucagon (Glucagon Inj) 1 mg OTHER PRN PRN PRN Reason: for Hypoglycemia Protocol Heparin Sodium (Porcine) (Heparin Central Flush) 0 unit IV.FLUSH DAILY [facility] Last Admin: 05/18/18 08:17 Dose: Not Given Heparin Sodium (Porcine) (Heparin Central Flush) 0 unit IV.FLUSH PRN PRN PRN Reason: Flush PICC Line Hydralazine HCl (Apresoline Inj) 10 mg IV.PUSH Q1H PRN PRN Reason: SBP>160, DBP>90 Magnesium Sulfate 4 gm/ Sodium (Chloride) 100 mls @ 50 mls/hr IV.SIG UNSCH PRN PRN Reason: For Magnesium 0.9 - 1.1 mg/dL Potassium Chloride (Kcl 40 Meq Premix Inj) 40 meq in 100 mls @ 25 mls/hr IV.SIG Q2H PRN PRN Reason: For Potassium 2.8 - 3.2 mEq/L Last Infusion: 05/17/18 12:00 Dose: Infused Potassium Chloride (Kcl 20 Meq Premix Inj) 20 meq in 100 mls @ 50 mls/hr IV.SIG Q2H PRN PRN Reason: For Potassium 3.3 - 3.5 mEq/L Potassium Chloride (Kcl 40 Meq Premix Inj) 40 meq in 100 mls @ 25 mls/hr IV.SIG UNSCH PRN PRN Reason: For Potassium 3.3 - 3.5 mEq/L Last Infusion: 05/11/18 12:53 Dose: Infused Potassium Chloride (Kcl 20 Meq Premix Inj) 20 meq in 100 mls @ 50 mls/hr IV.SIG Q2H PRN PRN Reason: For Potassium 2.8 - 3.2 mEq/L Potassium Phosphate 30 mmol/ (Sodium Chloride) 260 mls @ 42 mls/hr IV.SIG UNSCH PRN PRN Reason: SEE LABEL COMMENTS Magnesium Sulfate 2 gm/ Sodium (Chloride) 100 mls @ 50 mls/hr IV.SIG UNSCH PRN PRN Reason: For Magnesium 1.2 - 1.6 mg/dL Sodium Phosphate 30 mmol/ (Sodium Chloride) 260 mls @ 42 mls/hr IV.SIG UNSCH PRN PRN Reason: For Phosphorus < 2.5 mg/dL Propofol (Diprivan 1000 Mg/100 Ml Inj) 1,000 mg in 100 mls @ 4.77 mls/hr IV.CONT TITRATE PRN; Protocol PRN Reason: Per Protocol Last Admin: 05/18/18 10:09 Dose: 50 mcg/kg/min, 47.7 mls/hr Fentanyl (Fentanyl 10 Mcg/Ml Premix Drip) 2,500 mcg in 250 mls @ 5 mls/hr IV.SIG TITRATE PRN; Protocol PRN Reason: Per Protocol Last Admin: 05/18/18 10:09 Dose: 350 mcg/hr, 35 mls/hr Oxacillin Sodium 2 gm/ Sodium (Chloride) 100 mls @ 200 mls/hr IV.SIG Q4H [facility] Last Admin: 05/18/18 08:38 Dose: 200 mls/hr Ceftriaxone Sodium 2,000 mg/ (Sodium Chloride) 100 mls @ 200 mls/hr IV.SIG Q24H [facility] Last Infusion: 05/17/18 16:29 Dose: Infused Dexmedetomidine HCl 1,000 mcg/ (Sodium Chloride) 250 mls @ 8.4 mls/hr IV.CONT TITRATE PRN; Protocol PRN Reason: Per Protocol Last Admin: 05/18/18 10:08 Dose: 1.1 mcg/kg/hr, 46.2 mls/hr Multivitamins 10 ml/ Folic Acid 1 mg/ Amino Acids/Electrolytes/Dextrose 2, 010.2 mls @ 83 mls/hr IV.SIG Q24H [facility] Last Admin: 05/17/18 21:18 Dose: 83 mls/hr Midazolam HCl (Versed Inj) 100 mg in 100 mls @ 2 mls/hr IV.CONT TITRATE PRN; Protocol PRN Reason: PER PROTOCOL Last Admin: 05/18/18 06:44 Dose: 12 mg/hr, 12 mls/hr Insulin Aspart (Novolog Insulin Correctional Sugar Inj) 0 unit SQ Q6HR [facility]; Protocol Last Admin: 05/18/18 06:37 Dose: Not Given Labetalol HCl (Trandate Inj) 10 mg IV.PUSH Q1H PRN PRN Reason: Sbp>165, Dbp>90, Hr>65 Lactulose (Lactulose Liq) 30 ml PO DAILY PRN PRN Reason: SEVERE CONSITIPATION Lactulose (Lactulose Liq) 30 ml PO BID [facility] Last Admin: 05/18/18 08:17 Dose: 30 ml Magnesium Oxide (Mag-Ox) 800 mg PO UNSCH PRN PRN Reason: For Magnesium 1.2 - 1.6 mg/dL Methylprednisolone Sodium Succinate (Solumedrol Inj) 40 mg IV.PUSH Q12HR [facility] Metoclopramide HCl (Reglan Inj) 5 mg IV.PUSH Q8HR [facility]; Protocol Last Admin: 05/18/18 05:18 Dose: 5 mg Metoprolol Tartrate (Lopressor) 50 mg PO TID [facility] Last Admin: 05/18/18 08:17 Dose: 50 mg Ondansetron HCl (Zofran Inj) 4 mg IV.PUSH Q6H PRN PRN Reason: NAUSEA OR VOMITING Oxycodone HCl (Roxicodone Intensol Liq) 5 mg PO Q6H [facility] Last Admin: 05/18/18 05:17 Dose: 5 mg Pantoprazole Sodium (Protonix Inj) 40 mg IV.PUSH DAILY [facility] Last Admin: 05/18/18 08:17 Dose: 40 mg Polyethylene Glycol (Miralax) 17 gm PO BID [facility] Last Admin: 05/18/18 08:18 Dose: 17 gm Potassium Bicarb/Potassium Chloride (K-Lyte Cl Eff) 50 meq PO UNSCH PRN PRN Reason: For Potassium 3.3 - 3.5 mEq/L Last Admin: 05/15/18 17:32 Dose: 50 meq Potassium Phosphate (K-Phos Original) 2,000 mg PO Q4H PRN PRN Reason: Phosphorus Less Than 2.5 mg/dL Potassium Phosphate (K-Phos Original) 2,000 mg PO UNSCH PRN PRN Reason: SEE LABEL COMMENTS Senna/Docusate Sodium (Jemima-Colace) 1 tab PO BID [facility] Last Admin: 05/18/18 08:17 Dose: 1 tab Sennosides (Senokot) 17.2 mg PO Q12H PRN PRN Reason: Moderate Constipation Sodium Chloride (Ns Flush) 2 ml IV.FLUSH BID [facility] Last Admin: 05/18/18 08:18 Dose: 2 ml Sodium Chloride (Ns Flush) 2 ml IV.FLUSH PRN PRN PRN Reason: FLUSH AFTER USING IV ACCESS Last Admin: 05/11/18 08:30 Dose: 2 ml Sodium Chloride (Ns Flush) 0 ml IV.FLUSH DAILY [facility] Last Admin: 05/18/18 08:19 Dose: Not Given Sodium Chloride (Ns Flush) 0 ml IV.FLUSH PRN PRN PRN Reason: FLUSH AFTER USING IV ACCESS Sodium Chloride (Ns Flush) 0 ml IV.FLUSH PRN PRN PRN Reason: Flush After Blood Draws Sterile Water (Free Water) 250 ml G-TUBE Q12HR [facility] Last Admin: 05/18/18 08:18 Dose: 250 ml Allergies/Adverse Reactions: Allergies Allergy/AdvReac Type Severity Reaction Status Date / Time shellfish derived Allergy Anaphylaxis Verified 04/29/18 13:12 No Known Allergies Allergy Uncoded 04/29/18 13:12 Review of Systems All other systems reviewed negative except as stated in HPI Physical Exam Vital signs: Vital Signs 05/17/18 11:00 05/17/18 11:01 05/17/18 11:30 Temperature 101.1 F H 101.1 F H 101.3 F H Pulse Rate 85 86 86 Respiratory Rate Blood Pressure 106/64 108/56 L Pulse Oximetry 96 96 96 05/17/18 12:00 05/17/18 12:01 05/17/18 12:30 Temperature 101.3 F H 101.3 F H 101.5 F H Pulse Rate 86 87 87 Respiratory Rate Blood Pressure 100/70 103/68 Pulse Oximetry 97 97 96 05/17/18 13:00 05/17/18 13:01 05/17/18 13:30 Temperature 101.5 F H 101.5 F H 101.5 F H Pulse Rate 88 89 87 Respiratory Rate 17 Blood Pressure 95/65 L 98/68 L Pulse Oximetry 94 L 94 L 94 L 05/17/18 14:00 05/17/18 14:30 05/17/18 15:00 Temperature 101.3 F H 100.8 F H 100.4 F H Pulse Rate 87 86 84 Respiratory Rate Blood Pressure 102/74 100/72 107/67 Pulse Oximetry 94 L 92 L 91 L 05/17/18 15:31 05/17/18 16:00 05/17/18 16:01 Temperature 99.0 F 99.0 F 99.0 F Pulse Rate 83 83 83 Respiratory Rate 16 Blood Pressure 122/70 116/72 Pulse Oximetry 91 L 92 L 93 L 05/17/18 16:31 05/17/18 17:00 05/17/18 17:01 Temperature 100.9 F H 101.5 F H 101.7 F H Pulse Rate 85 87 87 Respiratory Rate Blood Pressure 121/68 105/74 Pulse Oximetry 95 90 L 90 L 05/17/18 17:31 05/17/18 18:00 18 18:31 Temperature 102.0 F H 102.4 F H 100.2 F H Pulse Rate 89 92 H 93 H Respiratory Rate Blood Pressure 113/61 113/62 109/75 Pulse Oximetry 88 L 93 L 92 L 05/17/18 19:00 05/17/18 19:31 05/17/18 20:00 Temperature 102.9 F H 102.9 F H 102.6 F H Pulse Rate 92 H 93 H 96 H Respiratory Rate 16 Blood Pressure 110/63 108/71 98/56 L Pulse Oximetry 92 L 91 L 92 L 05/17/18 23:01 05/17/18 23:31 05/18/18 00:00 Temperature 100.2 F H 99.9 F H 99.1 F Pulse Rate 73 73 76 Respiratory Rate Blood Pressure 138/63 127/59 L Pulse Oximetry 91 L 85 L 85 L 05/18/18 00:01 05/18/18 00:31 05/18/18 01:00 Temperature 99.1 F 99.0 F 99.1 F Pulse Rate 76 69 68 Respiratory Rate Blood Pressure 127/59 L 122/55 L Pulse Oximetry 85 L 86 L 91 L 05/18/18 01:01 05/18/18 01:30 05/18/18 01:47 Temperature 99.1 F 99.5 F Pulse Rate 68 70 Respiratory Rate 14 Blood Pressure 116/59 L 116/61 Pulse Oximetry 92 L 92 L 92 L 05/18/18 02:00 05/18/18 02:01 05/18/18 02:31 Temperature 99.7 F H 99.5 F 99.9 F H Pulse Rate 72 73 76 Respiratory Rate Blood Pressure 119/59 L 123/58 L Pulse Oximetry 93 L 93 L 92 L 05/18/18 03:00 05/18/18 03:01 05/18/18 03:31 Temperature 100.2 F H 100.0 F H 100.4 F H Pulse Rate 78 78 80 Respiratory Rate Blood Pressure 122/56 L 118/59 L Pulse Oximetry 92 L 92 L 93 L 05/18/18 04:00 05/18/18 04:01 05/18/18 04:31 Temperature 100.2 F H 100.2 F H 100.0 F H Pulse Rate 80 80 78 Respiratory Rate 14 Blood Pressure 114/58 L 114/58 L 112/57 L Pulse Oximetry 92 L 92 L 93 L 05/18/18 05:00 05/18/18 05:01 05/18/18 05:31 Temperature 100.2 F H 100.2 F H 100.0 F H Pulse Rate 81 82 79 Respiratory Rate Blood Pressure 100/50 L 107/59 L Pulse Oximetry 93 L 95 95 05/18/18 06:00 05/18/18 06:01 05/18/18 06:31 Temperature 99.7 F H 99.7 F H 99.9 F H Pulse Rate 78 78 78 Respiratory Rate Blood Pressure 107/54 L 107/63 Pulse Oximetry 95 95 95 05/18/18 07:00 05/18/18 07:21 05/18/18 07:31 Temperature 100.4 F H 98.2 F Pulse Rate 79 79 Respiratory Rate 14 Blood Pressure 120/69 126/60 Pulse Oximetry 95 98 98 05/18/18 08:00 05/18/18 08:01 05/18/18 08:31 Temperature 98.2 F 98.2 F 98.6 F Pulse Rate 79 78 84 Respiratory Rate Blood Pressure 125/60 116/49 L Pulse Oximetry 97 97 93 L 05/18/18 09:00 05/18/18 09:01 Temperature 98.4 F 98.4 F Pulse Rate 80 80 Respiratory Rate Blood Pressure 109/55 L Pulse Oximetry 94 L 94 L Intake & Output 05/17/18 05/18/18 05/18/18 18:59 06:59 18:59 Intake Total 1902 / 1902 4510.2 / 4510.2 700 / 700 Output Total 4850 / 4850 2250 / 2250 Balance -2948 / -2948 2260.2 / 2260.2 700 / 700 Weight 153.8 kg Intake: IV 190 / 1902 4110.2 / 4110.2 700 / 700 Bumex Inj 25 mg In 100 ml @ 0.5 52 / 52 MG/HR 2 mls/hr IV.CONT .Q24H [facility] Rx#:[id number] Precedex Inj 1,000 MCG In NS 500 / 500 500 / 500 250 / 250 Inj 240 ML @ 0.2 MCG/KG/HR 8.4 mls/hr IV.CONT TITRATE PRN Rx#: [id number] Versed Inj 100 mg In 100 ml @ 2 200 / 200 MG/HR 2 mls/hr IV.CONT TITRATE PRN Rx#:[id number] Diprivan 1000 mg/100 ml Inj 1, 500 / 500 500 / 500 200 / 200 000 mg In 100 ml @ 5 MCG/KG/MIN 4.77 mls/hr IV.CONT TITRATE PRN Rx#:[id number] MVI-12 Inj 10 ML Folvite Inj 1 2009.2 / 2009.2 MG In Clinimix E 4.25%/D5W Inj 2,000 ML @ 83 mls/hr IV.SIG Q24H [facility] Rx#:[id number] Prostaphlin Inj 2 GM In NS Inj 300 / 300 300 / 300 100 ML @ 200 mls/hr IV.SIG Q4H [facility] Rx#:[id number] KCl 40 mEq Premix Inj 40 meq In 100 / 100 100 ml @ 25 mls/hr IV.SIG Q2H PRN Rx#:[id number] Rocephin Inj 2,000 MG In NS Inj 100 / 100 100 ML @ 200 mls/hr IV.SIG Q24H [facility] Rx#:[id number] fentaNYL 10 mcg/mL Premix Drip 250 / 250 500 / 500 250 / 250 2,500 mcg In 250 ml @ 50 MCG/HR 5 mls/hr IV.SIG TITRATE PRN Rx #:[id number] Flolan (30,000 ng/mL) Neb 22.5 100 / 100 ML In NS Inj 77.5 ML @ 5 mls/hr NEB Q8H [facility] Rx#:[id number] Water Bolus Amount 400 / 400 Output: Stool 100 / 100 Urine Amount (Catheter) 4150 / 4150 1450 / 1450 Indwelling Urethral Catheter 4150 / 4150 1450 / 1450 Gastric Drainage 700 / 700 700 / 700 Orogastric Tube 700 / 700 700 / 700 Other: Date of Last Bowel Movement 05/17/18 05/18/18 05/18/18 Narrative: GENERAL: in NAD, obese SKIN: Warm and dry. HEAD: Atraumatic. Normocephalic. NECK: Intubated CARDIOVASCULAR: Regular rate and rhythm. RESPIRATORY: Intubated MUSCULOSKELETAL: Extremities without clubbing, cyanosis, or edema. No obvious deformities. NEUROLOGICAL: Intubated, on sedation, deep stuporous, nonverbal not following, no gaze deviation, sluggishly reactive pupils, limited exam PSYCHIATRIC: Calm - Constitutional no acute distress - Routine HEENT Exam Head: Present: normocephalic - Urinary Catheter Management Indwelling Urethral Catheter Cath placed during this visit: yes, but has since been removed by the nurse Reason for continuing: Hourly intake/output Insertion date: 05/16/18 Insertion time: 02:25 Removal date: 04/28/18 Removal time: 18:45 Straight Cath placed during this visit: yes, but has since been removed by the nurse Reason for continuing: Acute urinary retention Insertion date: 04/30/18 Insertion time: 05:00 Removal date: 04/30/18 Removal time: 05:00 Objective Laboratory Results - last 24 hr 05/17/18 05/17/18 05/17/18 11:25 18:23 20:00 WBC RBC Hgb Hct MCV MCH MCHC RDW Plt Count MPV Neut % (Auto) Lymph % (Auto) [place] % (Auto) Eos % (Auto) Baso % (Auto) Neut # (Auto) Lymph # (Auto) [place] # (Auto) Eos # (Auto) Baso # (Auto) WBC Differential Differential Comment PT INR APTT Puncture Site Patient Temperature O2 Saturation ABG pH ABG pCO2 ABG pO2 ABG HCO3 ABG O2 Content ABG Base Excess ABG Methemoglobin Noah Test Hemoglobin Carboxyhemoglobin O2 Delivery Device Vent Setting Inspired O2 Critical Value Sodium Potassium 3.5 Chloride Carbon Dioxide Anion Gap BUN Creatinine Estimated GFR POC Glucose 164 H 144 H Random Glucose Calcium Magnesium Total Bilirubin AST ALT Alkaline Phosphatase Total Protein Albumin 05/17/18 05/18/18 05/18/18 23:48 00:40 05:42 WBC RBC Hgb Hct MCV MCH MCHC RDW Plt Count MPV Neut % (Auto) Lymph % (Auto) [place] % (Auto) Eos % (Auto) Baso % (Auto) Neut # (Auto) Lymph # (Auto) [place] # (Auto) Eos # (Auto) Baso # (Auto) WBC Differential Differential Comment PT INR APTT Puncture Site Left radial Patient Temperature 98.6 O2 Saturation 90 ABG pH 7.48 H ABG pCO2 29 L ABG pO2 66 ABG HCO3 21 L ABG O2 Content 13.7 ABG Base Excess -1.8 ABG Methemoglobin 1.7 Noah Test Present Hemoglobin 10.9 L Carboxyhemoglobin 0.8 O2 Delivery Device Ventilator Vent Setting Comment Inspired O2 100 Critical Value No Sodium Potassium Chloride Carbon Dioxide Anion Gap BUN Creatinine Estimated GFR POC Glucose 137 H 141 H Random Glucose Calcium Magnesium Total Bilirubin AST ALT Alkaline Phosphatase Total Protein Albumin 05/18/18 05/18/18 05/18/18 07:00 07:00 07:00 WBC 16.5 H RBC 3.68 L Hgb 10.9 L Hct 33.3 L MCV 90.4 MCH 29.7 MCHC 32.9 RDW 15.9 Plt Count 275 MPV 8.5 Neut % (Auto) 79.4 H Lymph % (Auto) 11.9 [place] % (Auto) 8.4 H Eos % (Auto) 0.1 Baso % (Auto) 0.2 Neut # (Auto) 13.1 H Lymph # (Auto) 2.0 [place] # (Auto) 1.4 H Eos # (Auto) 0.0 Baso # (Auto) 0.0 WBC Differential . Differential Comment Auto diff final PT 12.8 H INR 1.3 APTT 21.5 L Puncture Site Patient Temperature O2 Saturation ABG pH ABG pCO2 ABG pO2 ABG HCO3 ABG O2 Content ABG Base Excess ABG Methemoglobin Noah Test Hemoglobin Carboxyhemoglobin O2 Delivery Device Vent Setting Inspired O2 Critical Value Sodium 138 Potassium 3.9 Chloride 104 Carbon Dioxide 25.6 Anion Gap 8 BUN 27 H Creatinine 0.71 Estimated GFR Greater than 89 POC Glucose Random Glucose 149 H Calcium 8.7 Magnesium 2.2 Total Bilirubin 0.3 AST 23 ALT 153 H Alkaline Phosphatase 70 Total Protein 7.8 Albumin 2.6 L Microbiology 05/14/18 20:55 Aerobic Blood Culture - Preliminary Blood - Peripheral No growth in 3 days Anaerobic Blood Culture - Preliminary No growth in 3 days 05/14/18 20:46 Aerobic Blood Culture - Preliminary Blood - Peripheral No growth in 3 days Anaerobic Blood Culture - Preliminary No growth in 3 days Review/Management - Diagnosis (1) Toxic encephalopathy Code(s): G92 - Toxic encephalopathy Status: Acute Current Visit: Yes (2) Respiratory failure Code(s): J96.90 - Respiratory failure, unspecified, unspecified whether with hypoxia or hypercapnia Status: Acute Current Visit: Yes (3) Aspiration pneumonia of both lower lobes Code(s): J69.0 - Pneumonitis due to inhalation of food and vomit Status: Acute Current Visit: Yes - Review/Management Plan: Drug-induced encephalopathy. Possible PCP although exact substance in the bag is not known; father thinks he may have overdosed on Sonata in which case he should slowly wake up CT brain negative ARDS, pneumonia ID following mri nml. eeg negative for sz Recommendation per rn was following this am will check eeg going for trach possibly today Follow exam
--- NOTE | 2018-05-18 11:14 | US ---
EXAM DATE: 05/18/2018 11:06 AM EST AGE/SEX: 22 years / Male INDICATIONS: Follow up bilateral tibial vein thrombosus for progression. CLINICAL DATA: This is the patient's initial encounter. Patient reports that signs and symptoms have been present for 1 week and indicates a pain score of 0/10. MEDICAL/SURGICAL HISTORY: Non-responsive. Deep venous thrombosis. Affective bipolar disorder. Bronchitis. Intubated. Acute metabolic encephalopathy. Suicide attempt. Tonsillectomy. COMPARISON: [facility] [place], US VENOUS DOPPLER LEG BI, 05/12/2018. . TECHNIQUE: Venous ultrasound of both lower extremities was performed from the inguinal ligament to t he proximal calf. Real-time, color Doppler and spectral tracing, compression and augmentation techni ques were used. FINDINGS: Right Leg: Normal compression of the deep venous system from the inguinal region to the proximal abhinav f. No echogenic clot is seen. Normal response of the venous system to augmentation and respiration. Left Leg: Normal compression of the deep venous system from the inguinal region to the knee is noted . Below the knee there is occlusive thrombus in the posterior tibial vein of the calf and ankle. Other: None. CONCLUSION: 1. Left lower extremity DVT involving the posterior tibial vein from the mid calf to the ankle. 2. No other evidence of DVT at or above the knee in either lower extremity. Electronically signed by: Sebastian Sylvester MD 05/18/2018 11:13 AM EST
[2018-05-18 13:23] LABS: Bilirubin,Urine Negative (Negative); Clarity,Urine Clear (Clear); Color,Urine Yellow (Yellw/Straw); Glucose,Urine (UA) Negative (Negative); Leukocyte Esterase,Urine Negative (Negative); Mucus,Urine Few /lpf (Occasional); Nitrite,Urine Negative (Negative); Specific Gravity,Urine 1.024 (1.002-1.035)
--- NOTE | 2018-05-18 14:38 | P.DIET ---
Nutritional Evaluation Type of nutrition evaluation: follow-up Nutrition consult regarding: Tube Feeding, TPN/PPN Objective - Diagnosis suicidal attempt, aspiration pneumonia - Objective % IBW: 192 (IBW = 202lb) Body Weight Used for Calculations: IBW Energy Needs - Lower Range (kCal/kg): 11 Energy Needs - Upper Range (kCal/kg): 14 Lower Limit kCal/kg (kCals): 1,848 Upper Limit kCal/kg (kCals): 2,352 Lower Limit Protein Factor (Grams per Kg): 1.2 Upper Limit Protein Factor (Grams per Kg): 1.5 Lower Protein Needs (Protein): 110 Upper Protein Needs (Protein): 138 Fluid Factor (ml/kg): 30 Estimated Fluid Needs (ml): 2,754 Dietitian Reviewed in Medical Record: Curent medications, Intake & Output, Labs , Medical history, Tube feeding Diet Order: NPO, TPN Wound Care Note: midline lower back: laceration sacrum: pressure injury L shoulder: pressure injury Objective Comments: PMH: affective bipolar disorder Assessment Assessment: TF on hold. Pt receiving Clinimix E 4.25/D5W @ 83mL/hr which provides 680 kcals and 85 gms protein. Fat kcalories are being provided by propofol. For TF, recommend Jevity 1.5 @ 60mL w/ Beneprotein 1 pkt TID to provide 2235 kcal, 110g of protein, and 1094mL of free water to best meet pts nutritional needs. Additional kcal (1.1kcal/mL) provided by propofol when running. Labs reviewed; elevated glucose noted. Will monitor for need of formula change. Recommendations: 1. PPN as ordered 2. Jevity 1.5 @ 60mL w/ Beneprotein 1 pkt TID when tolerated 3. Monitor glucose Dietitian to Monitor: Lab values, Intake & Output, Tube feeding tolerance, TPN/ PPN tolerance, Weight change, Medical course
[2018-05-18] MEDS: Oral Hygiene Kit OROPHARYNG SCH ×2 (15:43→23:33)
[2018-05-18] MEDS ORDERED: Vancomycin Consult Pharmacy OTHER PRN (15:49)
--- NOTE | 2018-05-18 15:56 | P.PNID ---
Subjective Remarks: pt had fever up to 103 in the last 24 hrs Down to PEEP 8, 40% FiO2 high residuals TF on hold KUB done - negative not on pressors + diarrhea, c.diff negative Antibiotics: CFTX oxacillin Lines: PICC Past Medical History: reviewed. Allergies/Adverse Reactions: Allergies shellfish derived Allergy (Verified 04/29/18 13:12) Anaphylaxis No Known Allergies Allergy (Uncoded 04/29/18 13:12) Objective Vital Signs 05/17/18 16:00 05/17/18 16:01 05/17/18 16:31 Temperature 99.0 F 99.0 F 100.9 F H Pulse Rate 83 83 85 Respiratory Rate 16 Blood Pressure 116/72 121/68 Pulse Oximetry 92 L 93 L 95 05/17/18 17:00 05/17/18 17:01 05/17/18 17:31 Temperature 101.5 F H 101.7 F H 102.0 F H Pulse Rate 87 87 89 Respiratory Rate Blood Pressure 105/74 113/61 Pulse Oximetry 90 L 90 L 88 L 05/17/18 18:00 05/17/18 18:31 05/17/18 19:00 Temperature 102.4 F H 100.2 F H 102.9 F H Pulse Rate 92 H 93 H 92 H Respiratory Rate 16 Blood Pressure 113/62 109/75 110/63 Pulse Oximetry 93 L 92 L 92 L 05/17/18 19:31 05/17/18 20:00 05/17/18 23:01 Temperature 102.9 F H 102.6 F H 100.2 F H Pulse Rate 93 H 96 H 73 Respiratory Rate Blood Pressure 108/71 98/56 L Pulse Oximetry 91 L 92 L 91 L 05/17/18 23:31 05/18/18 00:00 05/18/18 00:01 Temperature 99.9 F H 99.1 F 99.1 F Pulse Rate 73 76 76 Respiratory Rate Blood Pressure 138/63 127/59 L 127/59 L Pulse Oximetry 85 L 85 L 85 L 05/18/18 00:31 05/18/18 01:00 05/18/18 01:01 Temperature 99.0 F 99.1 F 99.1 F Pulse Rate 69 68 68 Respiratory Rate Blood Pressure 122/55 L 116/59 L Pulse Oximetry 86 L 91 L 92 L 05/18/18 01:30 05/18/18 01:47 05/18/18 02:00 Temperature 99.5 F 99.7 F H Pulse Rate 70 72 Respiratory Rate 14 Blood Pressure 116/61 Pulse Oximetry 92 L 92 L 93 L 05/18/18 02:01 05/18/18 02:31 05/18/18 03:00 Temperature 99.5 F 99.9 F H 100.2 F H Pulse Rate 73 76 78 Respiratory Rate Blood Pressure 119/59 L 123/58 L Pulse Oximetry 93 L 92 L 92 L 05/18/18 03:01 05/18/18 03:31 05/18/18 04:00 Temperature 100.0 F H 100.4 F H 100.2 F H Pulse Rate 78 80 80 Respiratory Rate 14 Blood Pressure 122/56 L 118/59 L 114/58 L Pulse Oximetry 92 L 93 L 92 L 05/18/18 04:01 05/18/18 04:31 05/18/18 05:00 Temperature 100.2 F H 100.0 F H 100.2 F H Pulse Rate 80 78 81 Respiratory Rate Blood Pressure 114/58 L 112/57 L Pulse Oximetry 92 L 93 L 93 L 05/18/18 05:01 05/18/18 05:31 05/18/18 06:00 Temperature 100.2 F H 100.0 F H 99.7 F H Pulse Rate 82 79 78 Respiratory Rate Blood Pressure 100/50 L 107/59 L Pulse Oximetry 95 95 95 05/18/18 06:01 05/18/18 06:31 05/18/18 07:00 Temperature 99.7 F H 99.9 F H 100.4 F H Pulse Rate 78 78 79 Respiratory Rate Blood Pressure 107/54 L 107/63 120/69 Pulse Oximetry 95 95 95 05/18/18 07:21 05/18/18 07:31 05/18/18 08:00 Temperature 98.2 F 98.2 F Pulse Rate 79 79 Respiratory Rate 14 Blood Pressure 126/60 Pulse Oximetry 98 98 97 05/18/18 08:01 05/18/18 08:31 05/18/18 09:00 Temperature 98.2 F 98.6 F 98.4 F Pulse Rate 78 84 80 Respiratory Rate Blood Pressure 125/60 116/49 L Pulse Oximetry 97 93 L 94 L 05/18/18 09:01 05/18/18 09:31 05/18/18 10:00 Temperature 98.4 F 98.4 F 96.4 F L Pulse Rate 80 81 77 Respiratory Rate Blood Pressure 109/55 L 112/58 L Pulse Oximetry 94 L 93 L 95 05/18/18 10:01 05/18/18 10:31 05/18/18 11:00 Temperature 96.3 F L 94.1 F L 92.3 F L Pulse Rate 78 79 75 Respiratory Rate Blood Pressure 122/57 L 118/62 Pulse Oximetry 95 94 L 96 05/18/18 11:01 05/18/18 11:31 05/18/18 12:00 Temperature 92.1 F L 90.7 F L 90.9 F L Pulse Rate 76 74 75 Respiratory Rate Blood Pressure 117/58 L 117/55 L Pulse Oximetry 96 95 93 L 05/18/18 12:01 05/18/18 12:31 Temperature 90.9 F L 91.4 F L Pulse Rate 74 71 Respiratory Rate Blood Pressure 121/56 L 109/60 Pulse Oximetry 92 L 93 L Intake & Output 05/17/18 05/18/18 05/18/18 18:59 06:59 18:59 Intake Total 1902 / 1902 4510.2 / 4510.2 1350 / 1350 Output Total 4850 / 4850 2250 / 2250 2950 / 2950 Balance -2948 / -2948 2260.2 / 2260.2 -1600 / -1600 Weight 153.8 kg Intake: IV 1902 / 1902 4110.2 / 4110.2 1350 / 1350 Bumex Inj 25 mg In 100 ml @ 0.5 52 / 52 MG/HR 2 mls/hr IV.CONT .Q24H [facility] Rx#:[id number] Precedex Inj 1,000 MCG In NS 500 / 500 500 / 500 500 / 500 Inj 240 ML @ 0.2 MCG/KG/HR 8.4 mls/hr IV.CONT TITRATE PRN Rx#: [id number] Versed Inj 100 mg In 100 ml @ 2 200 / 200 100 / 100 MG/HR 2 mls/hr IV.CONT TITRATE PRN Rx#:[id number] Diprivan 1000 mg/100 ml Inj 1, 500 / 500 500 / 500 300 / 300 000 mg In 100 ml @ 5 MCG/KG/MIN 4.77 mls/hr IV.CONT TITRATE PRN Rx#:[id number] MVI-12 Inj 10 ML Folvite Inj 1 2009.2 / 2010.2 MG In Clinimix E 4.25%/D5W Inj 2,000 ML @ 83 mls/hr IV.SIG Q24H [facility] Rx#:[id number] Prostaphlin Inj 2 GM In NS Inj 300 / 300 300 / 300 200 / 200 100 ML @ 200 mls/hr IV.SIG Q4H [facility] Rx#:[id number] KCl 40 mEq Premix Inj 40 meq In 100 / 100 100 ml @ 25 mls/hr IV.SIG Q2H PRN Rx#:[id number] Rocephin Inj 2,000 MG In NS Inj 100 / 100 100 ML @ 200 mls/hr IV.SIG Q24H [facility] Rx#:[id number] fentaNYL 10 mcg/mL Premix Drip 250 / 250 500 / 500 250 / 250 2,500 mcg In 250 ml @ 50 MCG/HR 5 mls/hr IV.SIG TITRATE PRN Rx #:[id number] Flolan (30,000 ng/mL) Neb 22.5 100 / 100 ML In NS Inj 77.5 ML @ 5 mls/hr NEB Q8H [facility] Rx#:[id number] Water Bolus Amount 400 / 400 Output: Stool 100 / 100 Urine Amount (Catheter) 4150 / 4150 1450 / 1450 2950 / 2950 Indwelling Urethral Catheter 4150 / 4150 1450 / 1450 2950 / 2950 Gastric Drainage 700 / 700 700 / 700 Orogastric Tube 700 / 700 700 / 700 Other: Date of Last Bowel Movement 05/17/18 05/18/18 05/18/18 05/18/18 12:40 Blood - Peripheral Aerobic Blood Culture - Pending 05/18/18 12:40 Blood - Peripheral Anaerobic Blood Culture - Pending 05/18/18 12:35 Blood - Peripheral Aerobic Blood Culture - Pending 05/18/18 12:35 Blood - Peripheral Anaerobic Blood Culture - Pending 05/18/18 11:45 Sputum - Endotracheal Gram Stain - Pending 05/18/18 11:45 Sputum - Endotracheal Sputum Culture - Pending 05/14/18 20:55 Blood - Peripheral Aerobic Blood Culture - Preliminary No growth in 4 days 05/14/18 20:55 Blood - Peripheral Anaerobic Blood Culture - Preliminary No growth in 4 days 05/14/18 20:46 Blood - Peripheral Aerobic Blood Culture - Preliminary No growth in 4 days 05/14/18 20:46 Blood - Peripheral Anaerobic Blood Culture - Preliminary No growth in 4 days Lab - Hematology Results 05/17/18 05/18/18 05:15 07:00 WBC 15.4 H 16.5 H RBC 3.64 L 3.68 L Hgb 10.7 L 10.9 L Hct 32.5 L 33.3 L MCV 89.3 90.4 MCH 29.4 29.7 MCHC 32.9 32.9 RDW 15.3 15.9 Plt Count 333 275 MPV 8.2 8.5 Neut % (Auto) 72.3 H 79.4 H Lymph % (Auto) 18.9 11.9 Crosby % (Auto) 8.6 H 8.4 H Eos % (Auto) 0.1 0.1 Baso % (Auto) 0.1 0.2 Neut # (Auto) 11.1 H 13.1 H Lymph # (Auto) 2.9 2.0 Crosby # (Auto) 1.3 H 1.4 H Eos # (Auto) 0.0 0.0 Baso # (Auto) 0.0 0.0 WBC Differential . . Differential Comment Auto diff final Auto diff final Lab - Chemistry Results 05/16/18 05/17/18 05/17/18 18:43 00:20 05:15 Sodium 141 Potassium 3.2 L Chloride 106 Carbon Dioxide 22.7 Anion Gap 12 BUN 26 H Creatinine 0.69 Estimated GFR Greater than 89 POC Glucose 145 H 152 H Random Glucose 129 H Calcium 8.6 Magnesium 2.1 Total Bilirubin 0.4 AST 108 H ALT 230 H Alkaline Phosphatase 75 Total Protein 7.6 Albumin 2.5 L 05/17/18 05/17/18 05/17/18 11:25 18:23 20:00 Sodium Potassium 3.5 Chloride Carbon Dioxide Anion Gap BUN Creatinine Estimated GFR POC Glucose 164 H 144 H Random Glucose Calcium Magnesium Total Bilirubin AST ALT Alkaline Phosphatase Total Protein Albumin 05/17/18 05/18/18 05/18/18 23:48 05:42 07:00 Sodium 138 Potassium 3.9 Chloride 104 Carbon Dioxide 25.6 Anion Gap 8 BUN 27 H Creatinine 0.71 Estimated GFR Greater than 89 POC Glucose 137 H 141 H Random Glucose 149 H Calcium 8.7 Magnesium 2.2 Total Bilirubin 0.3 AST 23 ALT 153 H Alkaline Phosphatase 70 Total Protein 7.8 Albumin 2.6 L 05/18/18 12:31 Sodium Potassium Chloride Carbon Dioxide Anion Gap BUN Creatinine Estimated GFR POC Glucose 152 H Random Glucose Calcium Magnesium Total Bilirubin AST ALT Alkaline Phosphatase Total Protein Albumin Imaging: ITS Impressions Head CT 04/27/18 11:[address]: [address] Head non contrast. . Abdomen/Pelvis CT 04/27/18 11:35 CONCLUSION: 1. Extensive atelectasis in both lower lobes. 2. The Stone catheter needs to be deflated and advanced into the bladder. The catheter is at the level of the prosthetic urethra. 3. No findings to indicate a bowel obstruction are seen. No free air free fluid is identified. Chest CT 04/27/18 11:35 CONCLUSION: 1. Consolidation both posterior lungs with air bronchograms. This could represent bilateral pneumonia or aspiration. Cervical Spine CT 04/27/18 11:36 CONCLUSION: 1. Negative trauma study. Lumbar Spine CT 04/27/18 11:59 CONCLUSION: 1. Negative for acute process 2. There is no evidence for vertebral compression. Head MRI 04/29/18 07:05 CONCLUSION: 1. Negative MRI of the brain. 2. Inflammatory process cannot be entirely excluded. 3. There are no infarcts identified. Abdomen X-Ray 05/17/18 00:00 CONCLUSION: No evidence of bowel obstruction. Dobbhoff tube is seen within the stomach and the proximal port of the nasogastric tube is within the proximal stomach. Venous Doppler Study 05/18/18 00:00 CONCLUSION: 1. Left lower extremity DVT involving the posterior tibial vein from the mid calf to the ankle. 2. No other evidence of DVT at or above the knee in either lower extremity. Chest X-Ray 05/18/18 00:26 CONCLUSION: No significant interval change. Persistent right greater than left pulmonary opacity. Physical Exam: GENERAL: Obese male, on the vent, sedated, NAD SKIN: Cool and dry. no rash. HEAD: Atraumatic. Normocephalic. EYES: Face mildly edematous. NO icterus, no injection ENT: orally intubated NECK: Trachea midline. No JVD. CARDIOVASCULAR: RRR, no murmurs RESPIRATORY: Coarse BS mikhail, decreased at bases GASTROINTESTINAL: soft abdomen, obese, no reaction to palpation MUSCULOSKELETAL: Extremities without clubbing, cyanosis, + 2 edema. NEUROLOGICAL: sedated PSYCHIATRIC: unable to assess : Stone in place ,urine clear LINE: NO evidence of infection Assessment and Plan - Plan Sepsis ongoing possible new. PNA, probably aspiration Acute VDRF on rotaprone bed. MSSA pneumonia. GNR pneumonia: Kleb, Enterobacter Morbid obesity with likely obesity- hypoventilation sd Coag neg staph bacteremia, low grade doubt clin significance New fever Leukocytosis diarrhea, c.diff negative UA negative new fever Recs: dc Ceftriaxone, Oxacillin will start meropenem micafungin vanco Follow C/S Follow temps Monitor progress Plans for trach noted D/W RN Spoke with father at bedside
[2018-05-18] MEDS: Micafungin Inj 150 MG in Sodium Chlor 0.9% Inj 100 ML IV.SIG SCH (17:05)
[2018-05-18] MEDS: Vancomycin Inj 2,000 MG in Sodium Chlor 0.9% Inj 500 ML IV.SIG SCH (17:05)
[2018-05-18] MEDS ORDERED: Vancomycin Inj 2,250 MG in Sodium Chlor 0.9% Inj 500 ML IV.SIG SCH (18:00)
--- NOTE | 2018-05-18 19:45 | MG ---
cc: Henrry Hdz MD [id number] Diprivan, Versed. Inflammatory process, possibly. Precedex, fentanyl. FINDINGS: Diffuse alpha and beta rhythms are noted, including overall synchronous and symmetric. What looks like sleep spindles are seen diffusely. No epileptiform or seizure activity is noted. Hyperventilation is not performed. Photic stimulation is performed without any posterior driving. Some mild diffuse theta slowing is at times noted. IMPRESSION: No hemisphere asymmetry. No epileptiform or seizure activity is noted. A lot of it looks like sleep spindle-type activity, but otherwise generally unremarkable. Henrry Hdz MD DJM/ll , 06:43 PM , 06:48 PM
[2018-05-18] MEDS: Multivitamin Inj 10 ML, Folic Acid Inj 1 MG in AA 4.25 %/D5W - Electrolytes 2,000 ML IV.SIG SCH (20:14)
[2018-05-18] MEDS: Chlorhexidine 0.12% Oral Kit 15 ML UDC OROPHARYNG SCH (20:17)
[2018-05-19] MEDS: Propofol 1000 mg/100 ml Inj 1,000 MG/100 ML BOTTLE IV.CONT PRN ×12 (00:52→23:26)
[2018-05-19] MEDS: Vancomycin Inj 2,000 MG in Sodium Chlor 0.9% Inj 500 ML IV.SIG SCH ×3 (01:43→19:30)
[2018-05-19] MEDS: Dexmedetomidine Inj 1,000 MCG in Sodium Chlor 0.9% Inj 240 ML IV.CONT PRN ×6 (02:37→23:48)
[2018-05-19] MEDS: fentaNYL 10 mcg/mL Premix Drip 2,500 MCG/250 ML BAG IV.SIG PRN ×3 (02:38→18:30)
[2018-05-19] MEDS: Oral Hygiene Kit OROPHARYNG SCH ×3 (04:47→18:10)
[2018-05-19 04:54] LABS: Baso # (Auto) 0.1 th/mm3 (0.0-0.2); Baso % (Auto) 0.4 % (0.0-2.0); Eos # (Auto) 0.1 th/mm3 (0.0-0.4); Eos % (Auto) 0.5 % (0.0-4.0); Hematocrit 29.8 % (39.0-51.0); Lymph # (Auto) 2.1 th/mm3 (1.0-4.8); Lymph % (Auto) 13.8 % (9.0-44.0); Mean Corpuscular HGB Conc 33.5 % (32.0-36.0); Mean Corpuscular Hemoglobin 29.7 pg (27.0-34.0); Mean Corpuscular Volume 88.8 fL (80.0-100.0); Mean Platelet Volume 8.2 fL (7.0-11.0); Mono # (Auto) 0.9 th/mm3 (0.0-0.9); Mono % (Auto) 5.7 % (0.0-8.0); Neut # (Auto) 12.3 th/mm3 (1.8-7.7); Neut % (Auto) 79.6 % (16.0-70.0); Platelet Count 242 th/mm3 (150-450); Red Blood Count 3.35 mil/mm3 (4.50-5.90); Red Cell Distribution Width 15.4 % (11.6-17.2); White Blood Count 15.4 th/mm3 (4.0-11.0)
[2018-05-19 05:18] LABS: Alanine Aminotransferase 104 U/L (9-52); Albumin 2.3 g/dL (3.4-5.0); Anion Gap 8 meq/L (5-15); Aspartate Aminotransferase 12 U/L (15-39); Blood Urea Nitrogen 26 mg/dL (7-18); Calcium 8.4 mg/dL (8.5-10.1); Carbon Dioxide 26.4 meq/L (21.0-32.0); Chloride 106 meq/L (98-107); Glomerular Filtration Rate Greater Than 89 mL/min (>89); Glucose,Random 136 mg/dL (74-106); Magnesium 2.2 mg/dL (1.5-2.5); Sodium 140 meq/L (136-145)
[2018-05-19 05:21] LABS: Alkaline Phosphatase 58 U/L (45-117); Total Protein 6.7 g/dL (6.4-8.2)
[2018-05-19] MEDS: Insulin NovoLOG Aspart Correctional Sugar Inj SQ SCH ×3 (05:37→18:53)
[2018-05-19] MEDS: Midazolam 100 MG/100 ML Inj 100 MG/100 ML BAG IV.CONT PRN ×3 (06:29→23:47)
--- NOTE | 2018-05-19 07:25 | P.PNCC ---
Subjective Subjective Remarks/Hospital Course: Patient is approximately 22 years old male obese, was found on the floor by a family member, downtime is unknown. EMS was called, patient was given Narcan with no response, he was intubated on the scene, apparently GCS 3. Found bag of PCP next to the patient. Patient has history of psychiatric disorder ? bipolar disorder and I am told he has attempted suicide in the past. There is also mention about suspicion of ethylene glycol ingestion, but his serum osmolality is 307 his osmolar gap is only 13. Bicarb is 26, ethylene glycol seems unlikely. Ethanol was negative urine drug screen only positive for benzo. I evaluated the patient in the ICU at the [facility]. Patient had a CT of the head which was negative. Rest of the workup unremarkable except for bibasilar atelectasis/aspiration pneumonia. Patient's white count is elevated at 17.1, glucose is 232 lactic acid was 2.8. He received multiple fluid boluses. At this time he is not on any sedation but remains unresponsive no response to deep pain 04/28 Patient remains intubated off sedation unresponsive. Afebrile. 04/29: MRI of the brain revealed no acute intracranial findings. EEG to be performed tomorrow. More arousable and moves all 4 extremities but not following commands. Placed on dexamethasone E drip. 2 feeds will be restarted 04/30: T-max 101.4. Currently afebrile. No bowel movement since admission. Arousable and follows simple commands late last night but currently on sedation for agitation. Increased FiO2 noted. Will attempt to gently diurese and continue antibiotics for pansensitive staph aureus/group a beta strep sputum 05/01 Patient is sedated with Fentanyl, Diprivan and intubated. T:101.1 at 5am. Placed on APRV overnight. 05/02 Patient is sedated with Diprivan and Fentanyl drips. Tmax 101.3, on PC/AC with PEEP:12, FIO2 80%, IP:30 05/03 Patient is heavily sedated with Diprivan, Fentanyl and Versed . On PC/AC with PEEP: 14 and FIO2 100$ sats 92%, CXR yesterday showed diffuse b/l pulm infiltrates, started on Flolan nebs. Had Tmax 102.6 last night. 05/04 Patient was placed on rotoprone bed yesterday sedated with Diprivan, Versed and Fentanyl infusion and on neuromuscular blockade( Nimbex) On PC/AC His FIO2 requirements is better now on FIO2:50% from 100% with PEEP:14. T:102.6 05/05 Patient remains intubated and sedated on Bumex drip 0.5mg/hr, T:99.7 at 3am. On PC/AC with PEEP:1 and FIO2 60%- sats 95%. 05/06 Patient remains sedated and intubated on rotoprone bed with improvements in his oxygenation. Now on PC/AC with PEEP:10, FIO2 40%. Afebrile. On Bumex drip 0.5mg/hr. 05/07 Patient remains on rotoprone bed sedated and on Nimbex drip. He is also on Bumex drip 0.5mg/hr with good urine output . 05/08 Patient remains sedated and intubated. On Flolan, and Bumex drip. Afebrile. 05/09 Patient desat overnight now on PC/AC with PEEP:10 and FIO2 100% sats 96%. Had T: 100.4 at midnight. Sputum cx 05/07 GNR. Remains sedated on Flolan and Bumex drip. 05/10: Resting in bed. Remains on PC/AC rate increased to 16. FiO2 80%. Low- grade fevers noted. Remains on epoprostenol and bumetanide drips. Hypertension noted. Aspirated this a.m. and so discontinued tube feeding. We will start PPN today. 05/11 Patient remains on rotoprone bed, sedated and intubated. Afebrile. On PC/ AC with PEEP;10 and FIO2 55%.On Flolan and Bumex drip 0.5mg/hr 05/12 Remains sedated, intubated and on Rotoprone bed. PC/AC with PEEP: 12 and FIO2 70% sats 96%. T:100.4 last night. On Flolan and Bumex drip. 05/14: Off rotaprone since yesterday, nimbex discontinued, PEEP 14 and FiO2 50% with sats in mid 90s. Still on flolan. 05/15: No acute issues overnight, plan is to wean PEEP slowly over the weekend for tracheostomy on Friday 05/18. 05/16: Flolan weaned yesterday, tolerated well, will continue to wean today. PEEP down to 10. O2 sats low to mid 90s. 05/17: TFs held overnight for high residuals; KUB showed Dobhoff tube in distal stomach with NGT in proximal stomach. Will hold for now, will need to be NPO at midnight for hopeful trach tomorrow. Continue PPN for now. 05/18: Patient had a desat event last night and had to have PEEP increased to 14. Pulse ox probe changed this morning and noted to be 100, now weaned back down to PEEP 10 and FiO2 60%. Will continue to wean FiO2. Flolan off since yesterday. Trach today or tomorrow. 05/19: Trach today. PEEP 8, FiO2 40%. No overnight events. Objective Vital Signs / I&O: Vital Signs 05/18/18 07:21 05/18/18 07:31 05/18/18 08:00 Temperature 98.2 F 98.2 F Pulse Rate 79 79 Respiratory Rate 14 Blood Pressure 126/60 Pulse Oximetry 98 98 97 05/18/18 08:01 05/18/18 08:31 05/18/18 09:00 Temperature 98.2 F 98.6 F 98.4 F Pulse Rate 78 84 80 Respiratory Rate Blood Pressure 125/60 116/49 L Pulse Oximetry 97 93 L 94 L 05/18/18 09:01 05/18/18 09:31 05/18/18 10:00 Temperature 98.4 F 98.4 F 96.4 F L Pulse Rate 80 81 77 Respiratory Rate Blood Pressure 109/55 L 112/58 L Pulse Oximetry 94 L 93 L 95 05/18/18 10:01 05/18/18 10:31 05/18/18 11:00 Temperature 96.3 F L 96 F L 96 F L Pulse Rate 78 79 75 Respiratory Rate Blood Pressure 122/57 L 118/62 Pulse Oximetry 95 94 L 96 05/18/18 11:01 05/18/18 11:31 05/18/18 12:00 Temperature 95.8 F L 95.9 F L 96.1 F L Pulse Rate 76 74 75 Respiratory Rate Blood Pressure 117/58 L 117/55 L Pulse Oximetry 96 95 93 L 05/18/18 12:01 05/18/18 12:31 05/18/18 13:00 Temperature 96.1 F L 96.1 F L Pulse Rate 74 71 66 Respiratory Rate Blood Pressure 121/56 L 109/60 Pulse Oximetry 92 L 93 L 92 L 05/18/18 13:01 05/18/18 13:31 05/18/18 14:00 Temperature Pulse Rate 66 63 61 Respiratory Rate Blood Pressure 112/57 L 115/62 119/61 Pulse Oximetry 92 L 96 96 05/18/18 14:31 05/18/18 15:00 05/18/18 15:01 Temperature Pulse Rate 61 61 62 Respiratory Rate Blood Pressure 120/62 119/56 L Pulse Oximetry 94 L 92 L 91 L 05/18/18 15:31 05/18/18 16:00 05/18/18 16:01 Temperature 95.9 F L Pulse Rate 62 62 62 Respiratory Rate Blood Pressure 119/61 116/58 L Pulse Oximetry 94 L 96 97 05/18/18 17:23 05/18/18 19:37 05/18/18 20:00 Temperature 98.4 F Pulse Rate 71 75 Respiratory Rate 14 14 Blood Pressure Pulse Oximetry 94 L 94 L 05/18/18 23:33 05/19/18 00:00 05/19/18 03:56 Temperature 99.1 F Pulse Rate Respiratory Rate 15 14 Blood Pressure Pulse Oximetry 96 99 05/19/18 04:00 Temperature 99.6 F Pulse Rate Respiratory Rate Blood Pressure Pulse Oximetry Intake & Output 05/18/18 05/19/18 05/19/18 18:59 06:59 18:59 Intake Total 2120 / 2120 5110.2 / 5110.2 Output Total 3575 / 3575 1900 / 1900 Balance -1455 / -1455 3210.2 / 3210.2 Weight 159 kg Intake: IV 1800 / 1800 5110.2 / 5110.2 Bumex Inj 25 mg In 100 ml @ 0.5 10 / 10 MG/HR 2 mls/hr IV.CONT .Q24H [facility] Rx#:[id number] Precedex Inj 1,000 MCG In NS 500 / 500 500 / 500 Inj 240 ML @ 0.2 MCG/KG/HR 8.4 mls/hr IV.CONT TITRATE PRN Rx#: [id number] Versed Inj 100 mg In 100 ml @ 2 100 / 100 200 / 200 MG/HR 2 mls/hr IV.CONT TITRATE PRN Rx#:[id number] Diprivan 1000 mg/100 ml Inj 1, 500 / 500 600 / 600 000 mg In 100 ml @ 5 MCG/KG/MIN 4.77 mls/hr IV.CONT TITRATE PRN Rx#:[id number] Merrem Inj 1,000 MG In NS Inj 200 / 200 100 ML @ 200 mls/hr IV.SIG Q8H [facility] Rx#:[id number] Mycamine Inj 150 MG In NS Inj 100 / 100 100 ML @ 100 mls/hr IV.SIG Q24H [facility] Rx#:[id number] MVI-12 Inj 10 ML Folvite Inj 1 2009.2 / 2010.2 MG In Clinimix E 4.25%/D5W Inj 2,000 ML @ 83 mls/hr IV.SIG Q24H [facility] Rx#:[id number] Prostaphlin Inj 2 GM In NS Inj 200 / 200 100 / 100 100 ML @ 200 mls/hr IV.SIG Q4H [facility] Rx#:[id number] Vancomycin Inj 2,000 MG In NS 1040 / 1040 Inj 500 ML @ 250 mls/hr IV.SIG Q8H [facility] Rx#:[id number] Rocephin Inj 2,000 MG In NS Inj 100 / 100 100 ML @ 200 mls/hr IV.SIG Q24H [facility] Rx#:[id number] fentaNYL 10 mcg/mL Premix Drip 500 / 500 250 / 250 2,500 mcg In 250 ml @ 50 MCG/HR 5 mls/hr IV.SIG TITRATE PRN Rx #:[id number] Oral 0 / 0 Tube Feeding 0 / 0 Tube Irrigant 120 / 120 Water Bolus Amount 200 / 200 Output: Urine 1300 / 1300 Stool 0 / 0 100 / 100 Urine Amount (Catheter) 3025 / 3025 Indwelling Urethral Catheter 3025 / 3025 Gastric Drainage 550 / 550 500 / 500 Orogastric Tube 550 / 550 500 / 500 Other: Date of Last Bowel Movement 05/18/18 05/19/18 Result Diagrams: 05/19/18 04:33 05/19/18 04:33 Objective Remarks: GENERAL: Intubated and sedated SKIN: Warm and dry HEAD: NCAT NECK: Supple, trachea midline CARDIOVASCULAR: Regular rate and rhythm in 80s RESPIRATORY: Diminished at bases bilaterally GASTROINTESTINAL: Abdomen obese, soft, non-tender in all quadrants MUSCULOSKELETAL: Trace peripheral edema, unchanged Neuro: RASS 0 to -1, easily arousable Assessment and Plan - Assessment and Plan Plan: NEURO/PSYCH: Acute metabolic encephalopathy Suspected PCP overdose Suspected ethylene glycol overdose Suicide attempt -Continues to require high levels of sedation to prevent vent dyssynchrony-- currently on precedex, propofol, versed, fentanyl, and is getting scheduled oxycodone. Hopefully we can wean/ discontinue most sedation after trach -Given prolonged intubation/ sedation, it is expected that the patient will be quite delirious once we start to wean sedation and wake him up. I explained this to his father at length. -Psychiatric consult after neurological recovery, previously on Wellbutrin. -CT of the head negative. MRI of brain negative. -EEG 04/30 and follow-up EEG 04/28 with no epileptic activity RESP: Acute hypoxemic respiratory failure Severe ARDS on Prone therapy Bibasilar aspiration pneumonitis Tobacco abuse -Continue with vent support keep sats >92% -On PC/AC RR 16, PEEP 8 and FiO2 60%, wean FiO2 and PEEP as tolerated. Given patient's body habitus, PEEP should not be weaned less than 8. -Hopefully getting trach today -Ventilator bundle. Bronchodilators (ipratropium/albuterol, Q4), Solumedrol 40mg Q8 -Flolan discontinued 05/17 s/p bronch 05/02 thick secretions suctioned to clear. No evidence of EBL or bleeding. -Nicotine patch decreased yesterday CV: Essential hypertension -Monitor HR and BP keep MAP>65mmHg -On Lopressor 50mg TID -Echo 04/28: EF 60-65%, PASP 36mmHg GI: Elevated ALT Hypoalbuminemia - IV famotidine. -Docusate serum/senna 1 tablet twice daily for bowel regimen. Lactulose 30 cc twice daily and MiraLAX 17 g twice daily. Having BMs, stool music manager in place. Renal/FEN/: -Monitor renal function, I/O's, electrolytes replacement as needed -Transitioned from bumex gtt to BID dosing yesterday, urine output continues to be excellent but patient receives a large volume of meds/ PPN per day. Would like to restart TFs and d/c PPN when tolerating TFs >24 hrs, TFs currently on hold for trach. ID: MSSA/group A beta strep pneumonia Superadded Enterobacter/Klebsiella ammonia Abx per ID- now on merrem, micafungin, vanco 05/07 Sputm cx: andrews-sensitive Kleb pneumonia, Enterobacter. Repeat cultures from 05/13 have no growth at 5 days, another set of cultures sent 05/18 and pending 04/27 Sputum: Staph aureus/MSSA and beta strep not group A. 05/03 BC: Coag neg staph 05/02 bronch cx: Staph Aureus HEME: Normocytic anemia Leukocytosis -Type & screen, coags ordered yesterday for pre-op -Persistent leukocytosis due to sepsis and steroid use ENDO/FEN: Hyperglycemia -Electrolyte replacement per protocol -Sliding scale insulin -Continue solumedrol q12 (weaned yesterday from q8) PROPH: GI prophylaxis- On Pepcid DVT prophylaxis- Lovenox 40mg SQ BID switched to Lovenox 40mg SQ BID giving his weight. Doppler US LE: thrombosis of the posterior tibial vein within the calf bilaterally. Repeat duplex on 05/18 shows persistent LLE below the knee DVT which has not propagated proximally. No RLE DVT seen. LINES: -Utilize peripheral IVs, [facility] central line placed in ED 04/27-d/janina. PICC placed on 05/08/18 Level 2 follow up To help prompt me to consider important information that might be impacting today's encounter and assessment, information from prior notes written by myself or my colleagues may have been "brought forward" into today's note. My signature on this note, however, is an attestation that I personally performed the exam, history, and/or decision-making noted today, and, unless otherwise indicated, the interactions with patient, family, and staff as well as the review of records all occurred today. I also attest that the listed assessment and stated plan reflect my best clinical judgment today based on the combination of historical information, prior notes, and today's exam/ interactions. Code Status: Full
[2018-05-19] MEDS: Chlorhexidine 0.12% Oral Kit 15 ML UDC OROPHARYNG SCH ×2 (08:32→19:53)
[2018-05-19] MEDS: Artificial Tears Opth Drops 15 ML Bottle EACH EYE SCH ×2 (08:33→18:11)
[2018-05-19] MEDS: Metoprolol Tartrate 50 MG Tablet PO SCH ×3 (08:35→18:12)
[2018-05-19] MEDS: Heparin Central Flush 100 UNIT/ML 5 ML Vial IV.FLUSH SCH (08:35)
[2018-05-19] MEDS: Polyethylene Glycol 3350 17 GM Packet PO SCH ×2 (08:36→21:25)
[2018-05-19] MEDS: Senna/Docusate Sodium 8.6/50 MG Tablet PO SCH ×2 (08:37→21:25)
[2018-05-19] MEDS: Pantoprazole Inj 40 MG Vial IV.PUSH SCH (08:37)
[2018-05-19] MEDS: MethylPREDNISolone Sod Succinate Inj 40 MG/ML Vial IV.PUSH SCH ×2 (08:38→21:24)
--- NOTE | 2018-05-19 10:31 | P.PNNEU ---
Subjective Subjective Comments: no acute events Active Medications: Active Medications Acetaminophen (Tylenol Liq) 650 mg PO Q6H PRN PRN Reason: FEVER Last Admin: 05/17/18 20:15 Dose: 650 mg Al Hydroxide/Mg Hydroxide (Milk Of Magnesia Liq) 30 ml PO Q12H PRN PRN Reason: Mild Constipation Albuterol (Albuterol Neb (Prn)) 2.5 mg NEB Q2HR NEB PRN PRN Reason: SHORTNESS OF BREATH/WHEEZING Last Admin: 05/18/18 19:43 Dose: 2.5 mg Artificial Tears (Tears Naturale Opth Drops) 1 drop EACH EYE Q8H [facility] Last Admin: 05/19/18 08:33 Dose: 1 drop Bisacodyl (Dulcolax Supp) 10 mg RECTAL DAILY PRN PRN Reason: SEVERE CONSITIPATION Bumetanide (Bumex Inj) 2 mg IV.PUSH BID@0900,1800 [facility] Last Admin: 05/19/18 08:46 Dose: 2 mg Chlorhexidine Gluconate (Peridex 0.12% Oral Kit) 15 ml OROPHARYNG BID@0800, 2000 [facility] Last Admin: 05/19/18 08:32 Dose: 15 ml Dextrose (D50w Vial) 50 ml IV.PUSH UNSCH PRN PRN Reason: PER HYPOGLYCEMIA PROTOCOL Enoxaparin Sodium (Lovenox Inj) 40 mg SQ Q12HR [facility] Last Admin: 05/18/18 20:15 Dose: 40 mg Glucagon (Glucagon Inj) 1 mg OTHER PRN PRN PRN Reason: for Hypoglycemia Protocol Heparin Sodium (Porcine) (Heparin Central Flush) 0 unit IV.FLUSH DAILY [facility] Last Admin: 05/19/18 08:35 Dose: Not Given Heparin Sodium (Porcine) (Heparin Central Flush) 0 unit IV.FLUSH PRN PRN PRN Reason: Flush PICC Line Hydralazine HCl (Apresoline Inj) 10 mg IV.PUSH Q1H PRN PRN Reason: SBP>160, DBP>90 Magnesium Sulfate 4 gm/ Sodium (Chloride) 100 mls @ 50 mls/hr IV.SIG UNSCH PRN PRN Reason: For Magnesium 0.9 - 1.1 mg/dL Potassium Chloride (Kcl 40 Meq Premix Inj) 40 meq in 100 mls @ 25 mls/hr IV.SIG Q2H PRN PRN Reason: For Potassium 2.8 - 3.2 mEq/L Last Infusion: 05/17/18 12:00 Dose: Infused Potassium Chloride (Kcl 20 Meq Premix Inj) 20 meq in 100 mls @ 50 mls/hr IV.SIG Q2H PRN PRN Reason: For Potassium 3.3 - 3.5 mEq/L Potassium Chloride (Kcl 40 Meq Premix Inj) 40 meq in 100 mls @ 25 mls/hr IV.SIG UNSCH PRN PRN Reason: For Potassium 3.3 - 3.5 mEq/L Last Infusion: 05/11/18 12:53 Dose: Infused Potassium Chloride (Kcl 20 Meq Premix Inj) 20 meq in 100 mls @ 50 mls/hr IV.SIG Q2H PRN PRN Reason: For Potassium 2.8 - 3.2 mEq/L Potassium Phosphate 30 mmol/ (Sodium Chloride) 260 mls @ 42 mls/hr IV.SIG UNSCH PRN PRN Reason: SEE LABEL COMMENTS Magnesium Sulfate 2 gm/ Sodium (Chloride) 100 mls @ 50 mls/hr IV.SIG UNSCH PRN PRN Reason: For Magnesium 1.2 - 1.6 mg/dL Sodium Phosphate 30 mmol/ (Sodium Chloride) 260 mls @ 42 mls/hr IV.SIG UNSCH PRN PRN Reason: For Phosphorus < 2.5 mg/dL Propofol (Diprivan 1000 Mg/100 Ml Inj) 1,000 mg in 100 mls @ 4.77 mls/hr IV.CONT TITRATE PRN; Protocol PRN Reason: Per Protocol Last Admin: 05/19/18 07:52 Dose: 50 mcg/kg/min, 47.7 mls/hr Fentanyl (Fentanyl 10 Mcg/Ml Premix Drip) 2,500 mcg in 250 mls @ 5 mls/hr IV.SIG TITRATE PRN; Protocol PRN Reason: Per Protocol Last Admin: 05/19/18 02:38 Dose: 350 mcg/hr, 35 mls/hr Dexmedetomidine HCl 1,000 mcg/ (Sodium Chloride) 250 mls @ 8.4 mls/hr IV.CONT TITRATE PRN; Protocol PRN Reason: Per Protocol Last Admin: 05/19/18 07:47 Dose: 1.1 mcg/kg/hr, 46.2 mls/hr Multivitamins 10 ml/ Folic Acid 1 mg/ Amino Acids/Electrolytes/Dextrose 2, 010.2 mls @ 83 mls/hr IV.SIG Q24H [facility] Last Admin: 05/18/18 20:14 Dose: 83 mls/hr Midazolam HCl (Versed Inj) 100 mg in 100 mls @ 2 mls/hr IV.CONT TITRATE PRN; Protocol PRN Reason: PER PROTOCOL Last Admin: 05/19/18 06:29 Dose: 12 mg/hr, 12 mls/hr Micafungin Sodium 150 mg/ (Sodium Chloride) 100 mls @ 100 mls/hr IV.SIG Q24H [facility] Last Infusion: 05/18/18 20:02 Dose: Infused Meropenem 1,000 mg/ Sodium (Chloride) 100 mls @ 200 mls/hr IV.SIG Q8H [facility] Last Infusion: 05/19/18 09:30 Dose: Infused Vancomycin HCl 2,000 mg/ (Sodium Chloride) 520 mls @ 250 mls/hr IV.SIG Q8H [facility] Last Admin: 05/19/18 09:58 Dose: 250 mls/hr Insulin Aspart (Novolog Insulin Correctional Sugar Inj) 0 unit SQ Q6HR [facility]; Protocol Last Admin: 05/19/18 05:37 Dose: Not Given Labetalol HCl (Trandate Inj) 10 mg IV.PUSH Q1H PRN PRN Reason: Sbp>165, Dbp>90, Hr>65 Lactulose (Lactulose Liq) 30 ml PO DAILY PRN PRN Reason: SEVERE CONSITIPATION Lactulose (Lactulose Liq) 30 ml PO BID [facility] Last Admin: 05/19/18 08:35 Dose: 30 ml Magnesium Oxide (Mag-Ox) 800 mg PO UNSCH PRN PRN Reason: For Magnesium 1.2 - 1.6 mg/dL Methylprednisolone Sodium Succinate (Solumedrol Inj) 40 mg IV.PUSH Q12HR [facility] Last Admin: 05/19/18 08:38 Dose: 40 mg Metoclopramide HCl (Reglan Inj) 5 mg IV.PUSH Q8HR [facility]; Protocol Last Admin: 05/19/18 05:08 Dose: 5 mg Metoprolol Tartrate (Lopressor) 50 mg PO TID [facility] Last Admin: 05/19/18 08:35 Dose: 50 mg Miscellaneous Information ([facility] Ordered Lab Info) 0 each OTHER ONCE ONE Stop: 05/19/18 17:46 Miscellaneous Medication () 1 each OROPHARYNG 0000,0400,1200,1600 [facility] Last Admin: 05/19/18 04:47 Dose: 1 each Ondansetron HCl (Zofran Inj) 4 mg IV.PUSH Q6H PRN PRN Reason: NAUSEA OR VOMITING Oxycodone HCl (Roxicodone Intensol Liq) 5 mg PO Q6H [facility] Last Admin: 05/19/18 10:00 Dose: 5 mg Pantoprazole Sodium (Protonix Inj) 40 mg IV.PUSH DAILY [facility] Last Admin: 05/19/18 08:37 Dose: 40 mg Pharmacy Profile Note (Vancomycin Consult Pharmacy) 1 each OTHER UNSCH PRN PRN Reason: Pharmacy to dose Polyethylene Glycol (Miralax) 17 gm PO BID [facility] Last Admin: 05/19/18 08:36 Dose: Not Given Potassium Bicarb/Potassium Chloride (K-Lyte Cl Eff) 50 meq PO UNSCH PRN PRN Reason: For Potassium 3.3 - 3.5 mEq/L Last Admin: 05/15/18 17:32 Dose: 50 meq Potassium Phosphate (K-Phos Original) 2,000 mg PO Q4H PRN PRN Reason: Phosphorus Less Than 2.5 mg/dL Potassium Phosphate (K-Phos Original) 2,000 mg PO UNSCH PRN PRN Reason: SEE LABEL COMMENTS Senna/Docusate Sodium (Jemima-Colace) 1 tab PO BID [facility] Last Admin: 05/19/18 08:37 Dose: 1 tab Sennosides (Senokot) 17.2 mg PO Q12H PRN PRN Reason: Moderate Constipation Sodium Chloride (Ns Flush) 2 ml IV.FLUSH BID [facility] Last Admin: 05/19/18 08:36 Dose: 2 ml Sodium Chloride (Ns Flush) 2 ml IV.FLUSH PRN PRN PRN Reason: FLUSH AFTER USING IV ACCESS Last Admin: 05/11/18 08:30 Dose: 2 ml Sodium Chloride (Ns Flush) 0 ml IV.FLUSH DAILY [facility] Last Admin: 05/19/18 08:37 Dose: 10 ml Sodium Chloride (Ns Flush) 0 ml IV.FLUSH PRN PRN PRN Reason: FLUSH AFTER USING IV ACCESS Sodium Chloride (Ns Flush) 0 ml IV.FLUSH PRN PRN PRN Reason: Flush After Blood Draws Sterile Water (Free Water) 250 ml G-TUBE Q12HR [facility] Last Admin: 05/19/18 08:34 Dose: Not Given Allergies/Adverse Reactions: Allergies Allergy/AdvReac Type Severity Reaction Status Date / Time shellfish derived Allergy Anaphylaxis Verified 04/29/18 13:12 No Known Allergies Allergy Uncoded 04/29/18 13:12 Review of Systems unobtainable due to endotracheal tube, unobtainable due to mental status Physical Exam Vital signs: Vital Signs 05/18/18 10:31 05/18/18 11:00 05/18/18 11:01 Temperature 96 F L 96 F L 95.8 F L Pulse Rate 79 75 76 Respiratory Rate Blood Pressure 118/62 117/58 L Pulse Oximetry 94 L 96 96 05/18/18 11:31 05/18/18 12:00 05/18/18 12:01 Temperature 95.9 F L 96.1 F L 96.1 F L Pulse Rate 74 75 74 Respiratory Rate Blood Pressure 117/55 L 121/56 L Pulse Oximetry 95 93 L 92 L 05/18/18 12:31 05/18/18 13:00 05/18/18 13:01 Temperature 96.1 F L Pulse Rate 71 66 66 Respiratory Rate Blood Pressure 109/60 112/57 L Pulse Oximetry 93 L 92 L 92 L 05/18/18 13:31 05/18/18 14:00 05/18/18 14:31 Temperature Pulse Rate 63 61 61 Respiratory Rate Blood Pressure 115/62 119/61 120/62 Pulse Oximetry 96 96 94 L 05/18/18 15:00 05/18/18 15:01 05/18/18 15:31 Temperature Pulse Rate 61 62 62 Respiratory Rate Blood Pressure 119/56 L 119/61 Pulse Oximetry 92 L 91 L 94 L 05/18/18 16:00 05/18/18 16:01 05/18/18 17:23 Temperature 95.9 F L Pulse Rate 62 62 Respiratory Rate 14 Blood Pressure 116/58 L Pulse Oximetry 96 97 94 L 05/18/18 19:37 05/18/18 20:00 05/18/18 23:33 Temperature 98.4 F Pulse Rate 71 75 Respiratory Rate 14 15 Blood Pressure Pulse Oximetry 94 L 96 05/19/18 00:00 05/19/18 03:56 05/19/18 04:00 Temperature 99.1 F 99.6 F Pulse Rate Respiratory Rate 14 Blood Pressure Pulse Oximetry 99 05/19/18 10:16 Temperature Pulse Rate Respiratory Rate 16 Blood Pressure Pulse Oximetry 99 Intake & Output 05/18/18 05/19/18 05/19/18 18:59 06:59 18:59 Intake Total 2120 / 2120 5110.2 / 5110.2 440 / 440 Output Total 3575 / 3575 1900 / 1900 Balance -1455 / -1455 3210.2 / 3210.2 440 / 440 Weight 159 kg Intake: IV 1800 / 1800 5110.2 / 5110.2 440 / 440 Bumex Inj 25 mg In 100 ml @ 0.5 10 / 10 MG/HR 2 mls/hr IV.CONT .Q24H [facility] Rx#:[id number] Precedex Inj 1,000 MCG In NS 500 / 500 500 / 500 240 / 240 Inj 240 ML @ 0.2 MCG/KG/HR 8.4 mls/hr IV.CONT TITRATE PRN Rx#: [id number] Versed Inj 100 mg In 100 ml @ 2 100 / 100 200 / 200 MG/HR 2 mls/hr IV.CONT TITRATE PRN Rx#:[id number] Diprivan 1000 mg/100 ml Inj 1, 500 / 500 600 / 600 100 / 100 000 mg In 100 ml @ 5 MCG/KG/MIN 4.77 mls/hr IV.CONT TITRATE PRN Rx#:[id number] Merrem Inj 1,000 MG In NS Inj 200 / 200 100 / 100 100 ML @ 200 mls/hr IV.SIG Q8H [facility] Rx#:[id number] Mycamine Inj 150 MG In NS Inj 100 / 100 100 ML @ 100 mls/hr IV.SIG Q24H [facility] Rx#:[id number] MVI-12 Inj 10 ML Folvite Inj 1 2009.2 / 2010.2 MG In Clinimix E 4.25%/D5W Inj 2,000 ML @ 83 mls/hr IV.SIG Q24H [facility] Rx#:[id number] Prostaphlin Inj 2 GM In NS Inj 200 / 200 100 / 100 100 ML @ 200 mls/hr IV.SIG Q4H [facility] Rx#:[id number] Vancomycin Inj 2,000 MG In NS 1040 / 1040 Inj 500 ML @ 250 mls/hr IV.SIG Q8H [facility] Rx#:[id number] Rocephin Inj 2,000 MG In NS Inj 100 / 100 100 ML @ 200 mls/hr IV.SIG Q24H [facility] Rx#:[id number] fentaNYL 10 mcg/mL Premix Drip 500 / 500 250 / 250 2,500 mcg In 250 ml @ 50 MCG/HR 5 mls/hr IV.SIG TITRATE PRN Rx #:[id number] Oral 0 / 0 Tube Feeding 0 / 0 Tube Irrigant 120 / 120 Water Bolus Amount 200 / 200 Output: Urine 1300 / 1300 Stool 0 / 0 100 / 100 Urine Amount (Catheter) 3025 / 3025 Indwelling Urethral Catheter 3025 / 3025 Gastric Drainage 550 / 550 500 / 500 Orogastric Tube 550 / 550 500 / 500 Other: Date of Last Bowel Movement 05/18/18 05/19/18 Narrative: GENERAL: in NAD, obese SKIN: Warm and dry. HEAD: Atraumatic. Normocephalic. NECK: Intubated CARDIOVASCULAR: Regular rate and rhythm. RESPIRATORY: Intubated MUSCULOSKELETAL: Extremities without clubbing, cyanosis, or edema. No obvious deformities. NEUROLOGICAL: Intubated, on sedation, partially opens eyes today, grimaces, not following, no gaze deviation, sluggishly reactive pupils, not moving any extremity PSYCHIATRIC: Calm - Constitutional no acute distress - Routine HEENT Exam Head: Present: normocephalic - Urinary Catheter Management Indwelling Urethral Catheter Cath placed during this visit: yes, but has since been removed by the nurse Reason for continuing: Continue criteria not met Insertion date: 05/16/18 Insertion time: 02:25 Removal date: 05/18/18 Removal time: 17:30 Straight Cath placed during this visit: yes, but has since been removed by the nurse Reason for continuing: Acute urinary retention Insertion date: 04/30/18 Insertion time: 05:00 Removal date: 04/30/18 Removal time: 05:00 Objective Laboratory Results - last 24 hr 05/18/18 05/18/18 05/18/18 09:57 11:45 12:31 WBC RBC Hgb Hct MCV MCH MCHC RDW Plt Count MPV Neut % (Auto) Lymph % (Auto) Saline % (Auto) Eos % (Auto) Baso % (Auto) Neut # (Auto) Lymph # (Auto) Saline # (Auto) Eos # (Auto) Baso # (Auto) WBC Differential Differential Comment Sodium Potassium Chloride Carbon Dioxide Anion Gap BUN Creatinine Estimated GFR POC Glucose 152 H Random Glucose Calcium Magnesium Total Bilirubin AST ALT Alkaline Phosphatase Total Protein Albumin Urine Color Yellow Urine Clarity Clear Urine pH 5.0 Ur Specific [place] 1.024 Urine Protein Negative Urine Glucose (UA) Negative Urine Ketones Negative Urine Occult Blood Negative Urine Nitrate Negative Urine Bilirubin Negative Urine Urobilinogen Less than 2 Ur Leukocyte Esterase Negative Urine RBC 3 Urine WBC 1 Urine Mucus Few H Micro UA Comment Culture not ind Ur Microscopic Review Not Reportable Urine Culture Comments Culture not ind Blood Type A Positive Blood Type Recheck Required Antibody Screen Negative 05/18/18 05/18/18 05/19/18 17:08 23:26 04:33 WBC 15.4 H RBC 3.35 L Hgb 10.0 L Hct 29.8 L MCV 88.8 MCH 29.7 MCHC 33.5 RDW 15.4 Plt Count 242 MPV 8.2 Neut % (Auto) 79.6 H Lymph % (Auto) 13.8 Saline % (Auto) 5.7 Eos % (Auto) 0.5 Baso % (Auto) 0.4 Neut # (Auto) 12.3 H Lymph # (Auto) 2.1 Saline # (Auto) 0.9 Eos # (Auto) 0.1 Baso # (Auto) 0.1 WBC Differential . Differential Comment Auto diff final Sodium Potassium Chloride Carbon Dioxide Anion Gap BUN Creatinine Estimated GFR POC Glucose 130 H 158 H Random Glucose Calcium Magnesium Total Bilirubin AST ALT Alkaline Phosphatase Total Protein Albumin Urine Color Urine Clarity Urine pH Ur Specific [place] Urine Protein Urine Glucose (UA) Urine Ketones Urine Occult Blood Urine Nitrate Urine Bilirubin Urine Urobilinogen Ur Leukocyte Esterase Urine RBC Urine WBC Urine Mucus Micro UA Comment Ur Microscopic Review Urine Culture Comments Blood Type Blood Type Recheck Antibody Screen 05/19/18 04:33 WBC RBC Hgb Hct MCV MCH MCHC RDW Plt Count MPV Neut % (Auto) Lymph % (Auto) Saline % (Auto) Eos % (Auto) Baso % (Auto) Neut # (Auto) Lymph # (Auto) Saline # (Auto) Eos # (Auto) Baso # (Auto) WBC Differential Differential Comment Sodium 140 Potassium 4.0 Chloride 106 Carbon Dioxide 26.4 Anion Gap 8 BUN 26 H Creatinine 0.50 L Estimated GFR Greater than 89 POC Glucose Random Glucose 136 H Calcium 8.4 L Magnesium 2.2 Total Bilirubin 0.3 AST 12 L ALT 104 H Alkaline Phosphatase 58 Total Protein 6.7 D Albumin 2.3 L Urine Color Urine Clarity Urine pH Ur Specific [place] Urine Protein Urine Glucose (UA) Urine Ketones Urine Occult Blood Urine Nitrate Urine Bilirubin Urine Urobilinogen Ur Leukocyte Esterase Urine RBC Urine WBC Urine Mucus Micro UA Comment Ur Microscopic Review Urine Culture Comments Blood Type Blood Type Recheck Antibody Screen Microbiology 05/18/18 11:45 Gram Stain - Final Sputum - Endotracheal 05/14/18 20:55 Aerobic Blood Culture - Preliminary Blood - Peripheral No growth in 4 days Anaerobic Blood Culture - Preliminary No growth in 4 days 05/14/18 20:46 Aerobic Blood Culture - Preliminary Blood - Peripheral No growth in 4 days Anaerobic Blood Culture - Preliminary No growth in 4 days Review/Management - Diagnosis (1) Toxic encephalopathy Code(s): G92 - Toxic encephalopathy Status: Acute Current Visit: Yes (2) Respiratory failure Code(s): J96.90 - Respiratory failure, unspecified, unspecified whether with hypoxia or hypercapnia Status: Acute Current Visit: Yes (3) Aspiration pneumonia of both lower lobes Code(s): J69.0 - Pneumonitis due to inhalation of food and vomit Status: Acute Current Visit: Yes - Review/Management Plan: Drug-induced encephalopathy. Possible PCP although exact substance in the bag is not known; father thinks he may have overdosed on Sonata in which case he should slowly wake up CT brain negative ARDS, pneumonia ID following mri nml. eeg negative for sz Recommendation a little more alert this am eeg-sleep state mri cspine for quadraparesis Follow exam
[2018-05-19] MEDS ORDERED: HYDROmorphone PF Inj 2 MG/ML Vial IV.PUSH ONE (12:45)
[2018-05-19] MEDS ORDERED: Lidocaine 1%/Epinephrine 1:100,000 Inj 20 ML Vial ONE (15:42)
[2018-05-19] MEDS ORDERED: Pharmacy Ordered Lab Info OTHER ONE (17:45)
[2018-05-19] MEDS: Micafungin Inj 150 MG in Sodium Chlor 0.9% Inj 100 ML IV.SIG SCH (18:13)
--- NOTE | 2018-05-19 18:30 | MP ---
cc: Uriel Dave MD,Bam Light MD DATE OF OPERATION: 05/19/2018 PREOPERATIVE DIAGNOSIS: 1. Ventilator dependence, status post drug overdose. 2. Morbid obesity. Weight greater than 400 pounds. POSTOPERATIVE DIAGNOSES: 1. Ventilator dependence, status post drug overdose. 2. Morbid obesity. Weight greater than 400 pounds. PROCEDURE PERFORMED: Open tracheostomy #10 Shiley extra long. SURGEON: Uriel Dave MD ANESTHESIA: General endotracheal. COMPLICATIONS: None. INDICATIONS FOR PROCEDURE: Mr. Nava is an unfortunate 22-year-old gentleman who suffered a cardiac arrest secondary to drug overdose. He has been in the [facility] [place] [facility]. He has had some ARDS with high ventilator settings. He was gradually weaned down to a safe level for a tracheostomy. The patient was originally seen by Dr. Luna. At that time, Dr. Luna saw him, he was on very high ventilator settings and Dr. Luna advised we wait until he was weaned down to an appropriate level for transport and to surgical procedure. The patient has been weaned and is now a candidate for a tracheostomy. Risks and benefits of the procedure was discussed with the family by Dr. Luna and they were agreeable. Dr. Luna explained to him that he would be out of town and I would be performing the procedure and they were agreeable. DETAILS OF PROCEDURE: The patient was identified, brought to the operating room, placed supine on the operating table. After adequate general anesthesia was achieved, the anterior neck and chest was shaved, prepped and draped in a standard surgical fashion. Lidocaine 1% was injected into the skin and subcutaneous tissue 1 fingerbreadth above the sternal notch. A vertical incision was then made. Dissection was carried down through the subcutaneous tissue in the midline all the way down to the trachea. A large crossing vein was identified and it was ligated with a 2-0 Vicryl suture and then transected. We were able to clearly see the trachea and able to count several rings. Attention was now directed to the tracheostomy. First, two 2-0 Prolene stay sutures were placed on each side of the trachea and these were then secured to the anterior chest. Next, the patient was pre-oxygenated by anesthesia and a vertical inverted T incision was made. Endotracheal tube was clearly seen and was withdrawn from the surgical field. Tracheostomy was then spread. A #10 extra long Shiley tracheostomy tube was then placed into the trachea without any difficulty. The balloon was insufflated and the patient was converted over to the ventilator via the tracheostomy. Anesthesia reported good tidal volumes and positive end tidal CO2. Tracheostomy hook was then removed from the trachea. The skin was then closed with a 2-0 Prolene suture above and below the tracheostomy. We did have to extend the skin incision in order to see due to the patient's morbid obesity and large neck. Tracheostomy was secured to the skin using a 2-0 Prolene suture x2. The Prolenes in the trachea were then taped down to the chest using a Steri-Strip. Sterile dressing was applied. No bleeding was noted. Again, the patient had excellent tidal volumes and positive end tidal CO2. The patient did not desaturate at any time during the procedure, maintaining his saturations in the low 90s throughout. The patient was then transported back to the [facility] [place] [facility] in critical but stable condition. MD EMILY Garrett/josiah , 05:38 PM , 05:46 PM
--- NOTE | 2018-05-19 18:36 | P.PNADD ---
Addendum to Inpatient Note Additional information: seen carl lopez full note to follow
[2018-05-19] MEDS: Multivitamin Inj 10 ML, Folic Acid Inj 1 MG in AA 4.25 %/D5W - Electrolytes 2,000 ML IV.SIG SCH (19:51)
--- NOTE | 2018-05-19 23:20 | P.PNID ---
Subjective Remarks: delayed entry Pt was seen earlier today prior to trach He is doing better Fever is low grade stable on vent growing GNB from sputum Antibiotics: meropenem micafungin vancomycin Lines: PICC Past Medical History: reviewed. Allergies/Adverse Reactions: Allergies shellfish derived Allergy (Verified 04/29/18 13:12) Anaphylaxis No Known Allergies Allergy (Uncoded 04/29/18 13:12) Objective Vital Signs 05/18/18 23:33 05/19/18 00:00 05/19/18 01:00 Temperature 99.1 F Pulse Rate 84 Respiratory Rate 15 Blood Pressure Pulse Oximetry 96 97 05/19/18 01:30 05/19/18 02:00 05/19/18 02:30 Temperature Pulse Rate 82 82 80 Respiratory Rate Blood Pressure 107/55 L 104/56 L 107/55 L Pulse Oximetry 98 98 99 05/19/18 03:00 05/19/18 03:30 05/19/18 03:56 Temperature Pulse Rate 79 78 Respiratory Rate 14 Blood Pressure 109/56 L 109/61 Pulse Oximetry 99 99 99 05/19/18 04:00 05/19/18 04:30 05/19/18 05:00 Temperature 99.6 F Pulse Rate 77 78 83 Respiratory Rate Blood Pressure 110/59 L 106/56 L Pulse Oximetry 99 99 99 05/19/18 05:01 05/19/18 05:30 05/19/18 06:00 Temperature Pulse Rate 84 76 78 Respiratory Rate Blood Pressure 107/61 115/65 Pulse Oximetry 99 99 99 05/19/18 06:01 05/19/18 06:31 05/19/18 07:00 Temperature Pulse Rate 79 82 79 Respiratory Rate Blood Pressure 122/61 126/63 Pulse Oximetry 99 98 100 05/19/18 07:01 05/19/18 07:31 05/19/18 08:00 Temperature 98.2 F Pulse Rate 79 78 77 Respiratory Rate Blood Pressure 129/59 L 129/58 L Pulse Oximetry 100 98 99 05/19/18 08:01 05/19/18 08:31 05/19/18 09:00 Temperature Pulse Rate 78 79 78 Respiratory Rate Blood Pressure 120/66 121/62 Pulse Oximetry 99 99 97 05/19/18 09:01 05/19/18 09:30 05/19/18 10:00 Temperature Pulse Rate 79 74 75 Respiratory Rate Blood Pressure 106/57 L 115/65 111/63 Pulse Oximetry 97 97 96 05/19/18 10:16 05/19/18 10:31 05/19/18 11:00 Temperature Pulse Rate 83 81 Respiratory Rate 16 Blood Pressure 110/62 115/68 Pulse Oximetry 99 94 L 95 05/19/18 11:30 05/19/18 12:00 05/19/18 15:22 Temperature 99.9 F H Pulse Rate 87 89 Respiratory Rate 17 Blood Pressure 117/80 120/64 Pulse Oximetry 97 94 L 95 05/19/18 16:21 05/19/18 19:00 05/19/18 19:30 Temperature Pulse Rate 74 72 Respiratory Rate Blood Pressure 124/68 125/72 Pulse Oximetry 100 96 97 05/19/18 20:00 05/19/18 21:04 Temperature 98.4 F Pulse Rate 75 Respiratory Rate 14 Blood Pressure 115/66 Pulse Oximetry 93 L 95 Intake & Output 05/19/18 05/19/18 05/20/18 06:59 18:59 06:59 Intake Total 5110.2 / 5110.2 3997.3 / 3997.3 2660.2 / 2660.2 Output Total 1900 / 1900 4155 / 4155 Balance 3210.2 / 3210.2 -157.7 / -157.7 2660.2 / 2660.2 Weight 159 kg Intake: IV 5110.2 / 5110.2 2397.3 / 2397.3 2660.2 / 2660.2 Bumex Inj 25 mg In 100 ml @ 0.5 10 / 10 MG/HR 2 mls/hr IV.CONT .Q24H [facility] Rx#:[id number] Precedex Inj 1,000 MCG In NS 500 / 500 692.3 / 692.3 250 / 250 Inj 240 ML @ 0.2 MCG/KG/HR 8.4 mls/hr IV.CONT TITRATE PRN Rx#: [id number] Versed Inj 100 mg In 100 ml @ 2 200 / 200 100 / 100 MG/HR 2 mls/hr IV.CONT TITRATE PRN Rx#:[id number] Diprivan 1000 mg/100 ml Inj 1, 600 / 600 485 / 485 200 / 200 000 mg In 100 ml @ 5 MCG/KG/MIN 4.77 mls/hr IV.CONT TITRATE PRN Rx#:[id number] Merrem Inj 1,000 MG In NS Inj 200 / 200 100 / 100 100 / 100 100 ML @ 200 mls/hr IV.SIG Q8H [facility] Rx#:[id number] Mycamine Inj 150 MG In NS Inj 100 / 100 100 / 100 100 ML @ 100 mls/hr IV.SIG Q24H [facility] Rx#:[id number] MVI-12 Inj 10 ML Folvite Inj 1 2009.2 / 2009.2 2009.2 2009.2 MG In Clinimix E 4.25%/D5W Inj 2,000 ML @ 83 mls/hr IV.SIG Q24H [facility] Rx#:[id number] Prostaphlin Inj 2 GM In NS Inj 100 / 100 100 ML @ 200 mls/hr IV.SIG Q4H [facility] Rx#:[id number] Vancomycin Inj 2,000 MG In NS 1040 / 1040 520 / 520 Inj 500 ML @ 250 mls/hr IV.SIG Q8H [facility] Rx#:[id number] Rocephin Inj 2,000 MG In NS Inj 100 / 100 100 ML @ 200 mls/hr IV.SIG Q24H [facility] Rx#:[id number] fentaNYL 10 mcg/mL Premix Drip 250 / 250 500 / 500 2,500 mcg In 250 ml @ 50 MCG/HR 5 mls/hr IV.SIG TITRATE PRN Rx #:[id number] Oral 0 / 0 Tube Feeding 0 / 0 Tube Irrigant 100 / 100 Anesthesia Amount 500 / 500 Other 1000 / 1000 Output: Urine 1300 / 1300 3950 / 3950 Stool 100 / 100 100 / 100 Estimated Blood Loss 5 / 5 Gastric Drainage 500 / 500 100 / 100 Orogastric Tube 500 / 500 100 / 100 Other: Other Intake Source Saline Solution Date of Last Bowel Movement 05/19/18 05/19/18 05/18/18 11:45 Sputum - Endotracheal Gram Stain - Final 05/18/18 11:45 Sputum - Endotracheal Sputum Culture - Preliminary gram negative rods 05/18/18 12:40 Blood - Peripheral Aerobic Blood Culture - Preliminary No growth in 1 day 05/18/18 12:40 Blood - Peripheral Anaerobic Blood Culture - Preliminary No growth in 1 day 05/18/18 12:35 Blood - Peripheral Aerobic Blood Culture - Preliminary No growth in 1 day 05/18/18 12:35 Blood - Peripheral Anaerobic Blood Culture - Preliminary No growth in 1 day 05/14/18 20:55 Blood - Peripheral Aerobic Blood Culture - Final No growth in 5 days 05/14/18 20:55 Blood - Peripheral Anaerobic Blood Culture - Final No growth in 5 days 05/14/18 20:46 Blood - Peripheral Aerobic Blood Culture - Final No growth in 5 days 05/14/18 20:46 Blood - Peripheral Anaerobic Blood Culture - Final No growth in 5 days Lab - Hematology Results 05/18/18 05/19/18 07:00 04:33 WBC 16.5 H 15.4 H RBC 3.68 L 3.35 L Hgb 10.9 L 10.0 L Hct 33.3 L 29.8 L MCV 90.4 88.8 MCH 29.7 29.7 MCHC 32.9 33.5 RDW 15.9 15.4 Plt Count 275 242 MPV 8.5 8.2 Neut % (Auto) 79.4 H 79.6 H Lymph % (Auto) 11.9 13.8 [place] % (Auto) 8.4 H 5.7 Eos % (Auto) 0.1 0.5 Baso % (Auto) 0.2 0.4 Neut # (Auto) 13.1 H 12.3 H Lymph # (Auto) 2.0 2.1 [place] # (Auto) 1.4 H 0.9 Eos # (Auto) 0.0 0.1 Baso # (Auto) 0.0 0.1 WBC Differential . . Differential Comment Auto diff final Auto diff final Lab - Chemistry Results 05/17/18 05/18/18 05/18/18 23:48 05:42 07:00 Sodium 138 Potassium 3.9 Chloride 104 Carbon Dioxide 25.6 Anion Gap 8 BUN 27 H Creatinine 0.71 Estimated GFR Greater than 89 POC Glucose 137 H 141 H Random Glucose 149 H Calcium 8.7 Magnesium 2.2 Total Bilirubin 0.3 AST 23 ALT 153 H Alkaline Phosphatase 70 Total Protein 7.8 Albumin 2.6 L 05/18/18 05/18/18 05/18/18 12:31 17:08 23:26 Sodium Potassium Chloride Carbon Dioxide Anion Gap BUN Creatinine Estimated GFR POC Glucose 152 H 130 H 158 H Random Glucose Calcium Magnesium Total Bilirubin AST ALT Alkaline Phosphatase Total Protein Albumin 05/19/18 05/19/18 05/19/18 04:33 11:27 18:53 Sodium 140 Potassium 4.0 Chloride 106 Carbon Dioxide 26.4 Anion Gap 8 BUN 26 H Creatinine 0.50 L Estimated GFR Greater than 89 POC Glucose 146 H 135 H Random Glucose 136 H Calcium 8.4 L Magnesium 2.2 Total Bilirubin 0.3 AST 12 L ALT 104 H Alkaline Phosphatase 58 Total Protein 6.7 D Albumin 2.3 L Imaging: ITS Impressions Head CT 04/27/18 11:31 CONCLUSION: 1. Negative CT Head non contrast. . Abdomen/Pelvis CT 04/27/18 11:35 CONCLUSION: 1. Extensive atelectasis in both lower lobes. 2. The Stone catheter needs to be deflated and advanced into the bladder. The catheter is at the level of the prosthetic urethra. 3. No findings to indicate a bowel obstruction are seen. No free air free fluid is identified. Chest CT 04/27/18 11:35 CONCLUSION: 1. Consolidation both posterior lungs with air bronchograms. This could represent bilateral pneumonia or aspiration. Cervical Spine CT 04/27/18 11:36 CONCLUSION: 1. Negative trauma study. Lumbar Spine CT 04/27/18 11:59 CONCLUSION: 1. Negative for acute process 2. There is no evidence for vertebral compression. Head MRI 04/29/18 07:05 CONCLUSION: 1. Negative MRI of the brain. 2. Inflammatory process cannot be entirely excluded. 3. There are no infarcts identified. Abdomen X-Ray 05/17/18 00:00 CONCLUSION: No evidence of bowel obstruction. Dobbhoff tube is seen within the stomach and the proximal port of the nasogastric tube is within the proximal stomach. Venous Doppler Study 05/18/18 00:00 CONCLUSION: 1. Left lower extremity DVT involving the posterior tibial vein from the mid calf to the ankle. 2. No other evidence of DVT at or above the knee in either lower extremity. Chest X-Ray 05/18/18 00:26 CONCLUSION: No significant interval change. Persistent right greater than left pulmonary opacity. Physical Exam: GENERAL: Obese male, on the vent, sedated, NAD SKIN: Cool and dry. no rash. HEAD: Atraumatic. Normocephalic. EYES: Face mildly edematous. NO icterus, no injection ENT: orally intubated NECK: Trachea midline. No JVD. CARDIOVASCULAR: RRR, no murmurs RESPIRATORY: Coarse BS mikhail, decreased at bases GASTROINTESTINAL: soft abdomen, obese, no reaction to palpation MUSCULOSKELETAL: Extremities without clubbing, cyanosis, resolution of edema. NEUROLOGICAL: sedated PSYCHIATRIC: unable to assess : Stone in place ,urine clear LINE: NO evidence of infection Assessment and Plan - Plan Sepsis ongoing possible new. PNA, probably aspiration Acute VDRF on rotaprone bed. MSSA pneumonia. GNR pneumonia: Kleb, Enterobacter Morbid obesity with likely obesity- hypoventilation sd Coag neg staph bacteremia, low grade doubt clin significance New fever Leukocytosis diarrhea, c.diff negative UA negative new fever - improved with new abx Rx Growing GNB in sputum Recs: cont meropenem micafungin vanco fu ID/S on sputum isolate will further adjust abx per clx D/W RN
[2018-05-20] MEDS: Artificial Tears Opth Drops 15 ML Bottle EACH EYE SCH ×3 (00:05→16:19)
[2018-05-20] MEDS: Oral Hygiene Kit OROPHARYNG SCH ×4 (00:05→16:18)
[2018-05-20] MEDS: fentaNYL 10 mcg/mL Premix Drip 2,500 MCG/250 ML BAG IV.SIG PRN ×3 (01:40→18:35)
[2018-05-20] MEDS: Propofol 1000 mg/100 ml Inj 1,000 MG/100 ML BOTTLE IV.CONT PRN ×7 (01:40→22:09)
[2018-05-20] MEDS ORDERED: Pharmacy Ordered Lab Info OTHER ONE (01:45)
[2018-05-20] MEDS: Vancomycin Inj 2,000 MG in Sodium Chlor 0.9% Inj 500 ML IV.SIG SCH ×3 (02:52→17:05)
[2018-05-20 03:45] LABS: Baso # (Auto) 0.1 th/mm3 (0.0-0.2); Baso % (Auto) 0.8 % (0.0-2.0); Eos # (Auto) 0.1 th/mm3 (0.0-0.4); Eos % (Auto) 0.4 % (0.0-4.0); Hematocrit 30.6 % (39.0-51.0); Hemoglobin 9.9 gm/dL (13.0-17.0); Lymph # (Auto) 1.8 th/mm3 (1.0-4.8); Lymph % (Auto) 14.4 % (9.0-44.0); Mean Corpuscular HGB Conc 32.4 % (32.0-36.0); Mean Corpuscular Hemoglobin 29.2 pg (27.0-34.0); Mean Corpuscular Volume 90.2 fL (80.0-100.0); Mean Platelet Volume 8.1 fL (7.0-11.0); Mono # (Auto) 0.7 th/mm3 (0.0-0.9); Mono % (Auto) 5.5 % (0.0-8.0); Neut # (Auto) 9.9 th/mm3 (1.8-7.7); Neut % (Auto) 78.9 % (16.0-70.0); Platelet Count 236 th/mm3 (150-450); Red Cell Distribution Width 15.4 % (11.6-17.2); White Blood Count 12.5 th/mm3 (4.0-11.0)
[2018-05-20 04:03] LABS: Alanine Aminotransferase 96 U/L (9-52); Albumin 2.3 g/dL (3.4-5.0); Anion Gap 9 meq/L (5-15); Aspartate Aminotransferase 22 U/L (15-39); Blood Urea Nitrogen 22 mg/dL (7-18); Calcium 7.7 mg/dL (8.5-10.1); Carbon Dioxide 24.5 meq/L (21.0-32.0); Chloride 107 meq/L (98-107); Glomerular Filtration Rate Greater Than 89 mL/min (>89); Glucose,Random 164 mg/dL (74-106); Potassium 4.2 meq/L (3.5-5.1); Sodium 140 meq/L (136-145)
[2018-05-20 04:05] LABS: Alkaline Phosphatase 58 U/L (45-117); Total Protein 6.5 g/dL (6.4-8.2)
[2018-05-20] MEDS: Insulin NovoLOG Aspart Correctional Sugar Inj SQ SCH ×4 (05:51→17:22)
[2018-05-20] MEDS: Dexmedetomidine Inj 1,000 MCG in Sodium Chlor 0.9% Inj 240 ML IV.CONT PRN ×4 (07:45→20:41)
[2018-05-20] MEDS: Midazolam 100 MG/100 ML Inj 100 MG/100 ML BAG IV.CONT PRN ×2 (07:57→18:34)
[2018-05-20] MEDS: Polyethylene Glycol 3350 17 GM Packet PO SCH ×2 (08:35→20:01)
[2018-05-20] MEDS: Senna/Docusate Sodium 8.6/50 MG Tablet PO SCH ×2 (08:36→20:01)
[2018-05-20] MEDS: Metoprolol Tartrate 50 MG Tablet PO SCH ×3 (08:36→17:05)
[2018-05-20] MEDS: MethylPREDNISolone Sod Succinate Inj 40 MG/ML Vial IV.PUSH SCH ×2 (08:36→20:00)
[2018-05-20] MEDS: Heparin Central Flush 100 UNIT/ML 5 ML Vial IV.FLUSH SCH (08:37)
[2018-05-20] MEDS: Chlorhexidine 0.12% Oral Kit 15 ML UDC OROPHARYNG SCH ×2 (08:37→20:03)
[2018-05-20] MEDS: Pantoprazole Inj 40 MG Vial IV.PUSH SCH (08:37)
--- NOTE | 2018-05-20 08:57 | P.PNNEU ---
Subjective Subjective Comments: no acute events Active Medications: Active Medications Acetaminophen (Tylenol Liq) 650 mg PO Q6H PRN PRN Reason: FEVER Last Admin: 05/17/18 20:15 Dose: 650 mg Al Hydroxide/Mg Hydroxide (Milk Of Magnesia Liq) 30 ml PO Q12H PRN PRN Reason: Mild Constipation Albuterol (Albuterol Neb (Prn)) 2.5 mg NEB Q2HR NEB PRN PRN Reason: SHORTNESS OF BREATH/WHEEZING Last Admin: 05/18/18 19:43 Dose: 2.5 mg Artificial Tears (Tears Naturale Opth Drops) 1 drop EACH EYE Q8H [facility] Last Admin: 05/20/18 08:37 Dose: 1 drop Bisacodyl (Dulcolax Supp) 10 mg RECTAL DAILY PRN PRN Reason: SEVERE CONSITIPATION Bumetanide (Bumex Inj) 2 mg IV.PUSH BID@0900,1800 [facility] Last Admin: 05/20/18 08:39 Dose: 2 mg Chlorhexidine Gluconate (Peridex 0.12% Oral Kit) 15 ml OROPHARYNG BID@0800, 2000 [facility] Last Admin: 05/20/18 08:37 Dose: 15 ml Dextrose (D50w Vial) 50 ml IV.PUSH UNSCH PRN PRN Reason: PER HYPOGLYCEMIA PROTOCOL Enoxaparin Sodium (Lovenox Inj) 40 mg SQ Q12HR [facility] Last Admin: 05/18/18 20:15 Dose: 40 mg Glucagon (Glucagon Inj) 1 mg OTHER PRN PRN PRN Reason: for Hypoglycemia Protocol Heparin Sodium (Porcine) (Heparin Central Flush) 0 unit IV.FLUSH DAILY [facility] Last Admin: 05/20/18 08:37 Dose: 500 unit Heparin Sodium (Porcine) (Heparin Central Flush) 0 unit IV.FLUSH PRN PRN PRN Reason: Flush PICC Line Hydralazine HCl (Apresoline Inj) 10 mg IV.PUSH Q1H PRN PRN Reason: SBP>160, DBP>90 Magnesium Sulfate 4 gm/ Sodium (Chloride) 100 mls @ 50 mls/hr IV.SIG UNSCH PRN PRN Reason: For Magnesium 0.9 - 1.1 mg/dL Potassium Chloride (Kcl 40 Meq Premix Inj) 40 meq in 100 mls @ 25 mls/hr IV.SIG Q2H PRN PRN Reason: For Potassium 2.8 - 3.2 mEq/L Last Infusion: 05/17/18 12:00 Dose: Infused Potassium Chloride (Kcl 20 Meq Premix Inj) 20 meq in 100 mls @ 50 mls/hr IV.SIG Q2H PRN PRN Reason: For Potassium 3.3 - 3.5 mEq/L Potassium Chloride (Kcl 40 Meq Premix Inj) 40 meq in 100 mls @ 25 mls/hr IV.SIG UNSCH PRN PRN Reason: For Potassium 3.3 - 3.5 mEq/L Last Infusion: 05/11/18 12:53 Dose: Infused Potassium Chloride (Kcl 20 Meq Premix Inj) 20 meq in 100 mls @ 50 mls/hr IV.SIG Q2H PRN PRN Reason: For Potassium 2.8 - 3.2 mEq/L Potassium Phosphate 30 mmol/ (Sodium Chloride) 260 mls @ 42 mls/hr IV.SIG UNSCH PRN PRN Reason: SEE LABEL COMMENTS Magnesium Sulfate 2 gm/ Sodium (Chloride) 100 mls @ 50 mls/hr IV.SIG UNSCH PRN PRN Reason: For Magnesium 1.2 - 1.6 mg/dL Sodium Phosphate 30 mmol/ (Sodium Chloride) 260 mls @ 42 mls/hr IV.SIG UNSCH PRN PRN Reason: For Phosphorus < 2.5 mg/dL Propofol (Diprivan 1000 Mg/100 Ml Inj) 1,000 mg in 100 mls @ 4.77 mls/hr IV.CONT TITRATE PRN; Protocol PRN Reason: Per Protocol Last Admin: 05/20/18 08:34 Dose: 50 mcg/kg/min, 47.7 mls/hr Fentanyl (Fentanyl 10 Mcg/Ml Premix Drip) 2,500 mcg in 250 mls @ 5 mls/hr IV.SIG TITRATE PRN; Protocol PRN Reason: Per Protocol Last Admin: 05/20/18 08:35 Dose: 350 mcg/hr, 35 mls/hr Dexmedetomidine HCl 1,000 mcg/ (Sodium Chloride) 250 mls @ 8.4 mls/hr IV.CONT TITRATE PRN; Protocol PRN Reason: Per Protocol Last Admin: 05/20/18 07:45 Dose: 1.5 mcg/kg/hr, 63 mls/hr Multivitamins 10 ml/ Folic Acid 1 mg/ Amino Acids/Electrolytes/Dextrose 2, 010.2 mls @ 83 mls/hr IV.SIG Q24H [facility] Last Admin: 05/19/18 19:51 Dose: 83 mls/hr Midazolam HCl (Versed Inj) 100 mg in 100 mls @ 2 mls/hr IV.CONT TITRATE PRN; Protocol PRN Reason: PER PROTOCOL Last Admin: 05/20/18 07:57 Dose: 12 mg/hr, 12 mls/hr Micafungin Sodium 150 mg/ (Sodium Chloride) 100 mls @ 100 mls/hr IV.SIG Q24H [facility] Last Infusion: 05/19/18 19:03 Dose: Infused Meropenem 1,000 mg/ Sodium (Chloride) 100 mls @ 200 mls/hr IV.SIG Q8H [facility] Last Infusion: 05/20/18 02:00 Dose: Infused Vancomycin HCl 2,000 mg/ (Sodium Chloride) 520 mls @ 250 mls/hr IV.SIG Q8H [facility] Last Infusion: 05/20/18 08:38 Dose: Infused Insulin Aspart (Novolog Insulin Correctional Sugar Inj) 0 unit SQ Q6HR [facility]; Protocol Last Admin: 05/20/18 05:51 Dose: Not Given Labetalol HCl (Trandate Inj) 10 mg IV.PUSH Q1H PRN PRN Reason: Sbp>165, Dbp>90, Hr>65 Lactulose (Lactulose Liq) 30 ml PO DAILY PRN PRN Reason: SEVERE CONSITIPATION Lactulose (Lactulose Liq) 30 ml PO BID [facility] Last Admin: 05/20/18 08:36 Dose: 30 ml Magnesium Oxide (Mag-Ox) 800 mg PO UNSCH PRN PRN Reason: For Magnesium 1.2 - 1.6 mg/dL Methylprednisolone Sodium Succinate (Solumedrol Inj) 40 mg IV.PUSH Q12HR [facility] Last Admin: 05/20/18 08:36 Dose: 40 mg Metoclopramide HCl (Reglan Inj) 5 mg IV.PUSH Q8HR [facility]; Protocol Last Admin: 05/20/18 05:18 Dose: 5 mg Metoprolol Tartrate (Lopressor) 50 mg PO TID [facility] Last Admin: 05/20/18 08:36 Dose: 50 mg Miscellaneous Medication () 1 each OROPHARYNG 0000,0400,1200,1600 [facility] Last Admin: 05/20/18 05:19 Dose: 1 each Ondansetron HCl (Zofran Inj) 4 mg IV.PUSH Q6H PRN PRN Reason: NAUSEA OR VOMITING Last Admin: 05/20/18 03:13 Dose: 4 mg Oxycodone HCl (Roxicodone Intensol Liq) 5 mg PO Q6H [facility] Last Admin: 05/20/18 05:18 Dose: 5 mg Pantoprazole Sodium (Protonix Inj) 40 mg IV.PUSH DAILY [facility] Last Admin: 05/20/18 08:37 Dose: 40 mg Pharmacy Profile Note (Vancomycin Consult Pharmacy) 1 each OTHER UNSCH PRN PRN Reason: Pharmacy to dose Polyethylene Glycol (Miralax) 17 gm PO BID [facility] Last Admin: 05/20/18 08:35 Dose: 17 gm Potassium Bicarb/Potassium Chloride (K-Lyte Cl Eff) 50 meq PO UNSCH PRN PRN Reason: For Potassium 3.3 - 3.5 mEq/L Last Admin: 05/15/18 17:32 Dose: 50 meq Potassium Phosphate (K-Phos Original) 2,000 mg PO Q4H PRN PRN Reason: Phosphorus Less Than 2.5 mg/dL Potassium Phosphate (K-Phos Original) 2,000 mg PO UNSCH PRN PRN Reason: SEE LABEL COMMENTS Senna/Docusate Sodium (Jemima-Colace) 1 tab PO BID [facility] Last Admin: 05/20/18 08:36 Dose: 1 tab Sennosides (Senokot) 17.2 mg PO Q12H PRN PRN Reason: Moderate Constipation Sodium Chloride (Ns Flush) 2 ml IV.FLUSH BID [facility] Last Admin: 05/19/18 21:25 Dose: 2 ml Sodium Chloride (Ns Flush) 2 ml IV.FLUSH PRN PRN PRN Reason: FLUSH AFTER USING IV ACCESS Last Admin: 05/11/18 08:30 Dose: 2 ml Sodium Chloride (Ns Flush) 0 ml IV.FLUSH DAILY [facility] Last Admin: 05/20/18 08:37 Dose: 2 ml Sodium Chloride (Ns Flush) 0 ml IV.FLUSH PRN PRN PRN Reason: FLUSH AFTER USING IV ACCESS Sodium Chloride (Ns Flush) 0 ml IV.FLUSH PRN PRN PRN Reason: Flush After Blood Draws Sterile Water (Free Water) 250 ml G-TUBE Q12HR [facility] Last Admin: 05/20/18 08:37 Dose: 250 ml Allergies/Adverse Reactions: Allergies Allergy/AdvReac Type Severity Reaction Status Date / Time shellfish derived Allergy Anaphylaxis Verified 04/29/18 13:12 No Known Allergies Allergy Uncoded 04/29/18 13:12 Review of Systems unobtainable due to endotracheal tube, unobtainable due to mental status Physical Exam Vital signs: Vital Signs 05/19/18 09:00 05/19/18 09:01 05/19/18 09:30 Temperature Pulse Rate 78 79 74 Respiratory Rate Blood Pressure 106/57 L 115/65 Pulse Oximetry 97 97 97 05/19/18 10:00 05/19/18 10:16 05/19/18 10:31 Temperature Pulse Rate 75 83 Respiratory Rate 16 Blood Pressure 111/63 110/62 Pulse Oximetry 96 99 94 L 05/19/18 11:00 05/19/18 11:30 05/19/18 12:00 Temperature 99.9 F H Pulse Rate 81 87 89 Respiratory Rate Blood Pressure 115/68 117/80 120/64 Pulse Oximetry 95 97 94 L 05/19/18 15:22 05/19/18 16:21 05/19/18 19:00 Temperature Pulse Rate 74 Respiratory Rate 17 Blood Pressure 124/68 Pulse Oximetry 95 100 96 05/19/18 19:30 05/19/18 20:00 05/19/18 20:30 Temperature 98.4 F Pulse Rate 72 75 78 Respiratory Rate Blood Pressure 125/72 115/66 111/60 Pulse Oximetry 97 93 L 93 L 05/19/18 21:00 05/19/18 21:04 05/19/18 21:30 Temperature Pulse Rate 77 76 Respiratory Rate 14 Blood Pressure 111/63 110/63 Pulse Oximetry 95 95 98 05/19/18 22:00 05/19/18 22:30 05/19/18 23:00 Temperature Pulse Rate 74 74 77 Respiratory Rate Blood Pressure 116/60 115/63 119/62 Pulse Oximetry 97 96 93 L 05/19/18 23:30 05/20/18 00:00 05/20/18 00:30 Temperature 98.4 F Pulse Rate 79 76 78 Respiratory Rate Blood Pressure 122/68 122/71 122/64 Pulse Oximetry 90 L 90 L 91 L 05/20/18 01:00 05/20/18 01:30 05/20/18 01:49 Temperature Pulse Rate 85 89 Respiratory Rate 18 Blood Pressure 124/62 122/70 Pulse Oximetry 92 L 93 L 96 05/20/18 02:00 05/20/18 02:30 05/20/18 03:00 Temperature Pulse Rate 86 82 85 Respiratory Rate Blood Pressure 126/65 129/65 126/63 Pulse Oximetry 92 L 94 L 94 L 05/20/18 03:30 05/20/18 04:00 05/20/18 04:31 Temperature 98.1 F Pulse Rate 88 80 84 Respiratory Rate Blood Pressure 112/59 L 121/64 119/58 L Pulse Oximetry 94 L 95 94 L 05/20/18 05:00 05/20/18 05:09 05/20/18 06:00 Temperature Pulse Rate 78 76 Respiratory Rate 16 Blood Pressure Pulse Oximetry 94 L 97 97 05/20/18 08:44 Temperature Pulse Rate Respiratory Rate 15 Blood Pressure Pulse Oximetry 100 Intake & Output 05/19/18 05/20/18 05/20/18 18:59 06:59 18:59 Intake Total 3997.3 / 3997.3 5730.2 / 5730.2 970 / 970 Output Total 4155 / 4155 4150 / 4150 Balance -157.7 / -157.7 1580.2 / 1580.2 970 / 970 Weight 156 kg Intake: IV 2397.3 / 2397.3 4630.2 / 4630.2 970 / 970 Precedex Inj 1,000 MCG In NS 692.3 / 692.3 750 / 750 Inj 240 ML @ 0.2 MCG/KG/HR 8.4 mls/hr IV.CONT TITRATE PRN Rx#: [id number] Versed Inj 100 mg In 100 ml @ 2 100 / 100 100 / 100 100 / 100 MG/HR 2 mls/hr IV.CONT TITRATE PRN Rx#:[id number] Diprivan 1000 mg/100 ml Inj 1, 485 / 485 700 / 700 100 / 100 000 mg In 100 ml @ 5 MCG/KG/MIN 4.77 mls/hr IV.CONT TITRATE PRN Rx#:[id number] Merrem Inj 1,000 MG In NS Inj 100 / 100 200 / 200 100 ML @ 200 mls/hr IV.SIG Q8H [facility] Rx#:[id number] Mycamine Inj 150 MG In NS Inj 100 / 100 100 ML @ 100 mls/hr IV.SIG Q24H [facility] Rx#:[id number] MVI-12 Inj 10 ML Folvite Inj 1 2009.2 / 2010.2 MG In Clinimix E 4.25%/D5W Inj 2,000 ML @ 83 mls/hr IV.SIG Q24H [facility] Rx#:[id number] Vancomycin Inj 2,000 MG In NS 520 / 520 520 / 520 520 / 520 Inj 500 ML @ 250 mls/hr IV.SIG Q8H [facility] Rx#:[id number] fentaNYL 10 mcg/mL Premix Drip 500 / 500 250 / 250 250 / 250 2,500 mcg In 250 ml @ 50 MCG/HR 5 mls/hr IV.SIG TITRATE PRN Rx #:[id number] Tube Irrigant 100 / 100 100 / 100 Anesthesia Amount 500 / 500 Other 1000 / 1000 1000 / 1000 Output: Urine 3950 / 3950 3950 / 3950 Stool 100 / 100 100 / 100 Estimated Blood Loss 5 / 5 Gastric Drainage 100 / 100 100 / 100 Orogastric Tube 100 / 100 100 / 100 Other: Other Intake Source Saline Solution Saline Solution Date of Last Bowel Movement 05/19/18 05/19/18 Narrative: GENERAL: in NAD, obese SKIN: Warm and dry. HEAD: Atraumatic. Normocephalic. NECK: trach CARDIOVASCULAR: Regular rate and rhythm. RESPIRATORY: Intubated MUSCULOSKELETAL: Extremities without clubbing, cyanosis, or edema. No obvious deformities. NEUROLOGICAL:trach, on sedation versed/propofol/fentanyl, partially opens eyes today, not following, no gaze deviation, sluggishly reactive pupils, not moving any extremity PSYCHIATRIC: Calm - Constitutional no acute distress - Routine HEENT Exam Head: Present: normocephalic Eye: Present: EOMI - Urinary Catheter Management Indwelling Urethral Catheter Cath placed during this visit: yes, but has since been removed by the nurse Reason for continuing: Continue criteria not met Insertion date: 05/16/18 Insertion time: 02:25 Removal date: 05/18/18 Removal time: 17:30 Straight Cath placed during this visit: yes, but has since been removed by the nurse Reason for continuing: Acute urinary retention Insertion date: 04/30/18 Insertion time: 05:00 Removal date: 04/30/18 Removal time: 05:00 Objective Laboratory Results - last 24 hr 05/19/18 05/19/18 05/19/18 11:27 18:52 18:53 WBC RBC Hgb Hct MCV MCH MCHC RDW Plt Count MPV Neut % (Auto) Lymph % (Auto) Lamar % (Auto) Eos % (Auto) Baso % (Auto) Neut # (Auto) Lymph # (Auto) Lamar # (Auto) Eos # (Auto) Baso # (Auto) WBC Differential Differential Comment Sodium Potassium Chloride Carbon Dioxide Anion Gap BUN Creatinine Estimated GFR POC Glucose 146 H 135 H Random Glucose Calcium Magnesium Total Bilirubin AST ALT Alkaline Phosphatase Total Protein Albumin Vancomycin Trough 10.8 H 05/19/18 05/20/18 05/20/18 23:56 01:40 01:57 WBC RBC Hgb Hct MCV MCH MCHC RDW Plt Count MPV Neut % (Auto) Lymph % (Auto) Lamar % (Auto) Eos % (Auto) Baso % (Auto) Neut # (Auto) Lymph # (Auto) Lamar # (Auto) Eos # (Auto) Baso # (Auto) WBC Differential Differential Comment Sodium Potassium Chloride Carbon Dioxide Anion Gap BUN Creatinine Estimated GFR POC Glucose 139 H 137 H Random Glucose Calcium Magnesium Total Bilirubin AST ALT Alkaline Phosphatase Total Protein Albumin Vancomycin Trough 14.3 H 05/20/18 05/20/18 03:30 03:30 WBC 12.5 H RBC 3.40 L Hgb 9.9 L Hct 30.6 L MCV 90.2 MCH 29.2 MCHC 32.4 RDW 15.4 Plt Count 236 MPV 8.1 Neut % (Auto) 78.9 H Lymph % (Auto) 14.4 Lamar % (Auto) 5.5 Eos % (Auto) 0.4 Baso % (Auto) 0.8 Neut # (Auto) 9.9 H Lymph # (Auto) 1.8 Lamar # (Auto) 0.7 Eos # (Auto) 0.1 Baso # (Auto) 0.1 WBC Differential . Differential Comment Auto diff final Sodium 140 Potassium 4.2 Chloride 107 Carbon Dioxide 24.5 Anion Gap 9 BUN 22 H Creatinine 0.47 L Estimated GFR Greater than 89 POC Glucose Random Glucose 164 H Calcium 7.7 L Magnesium 2.0 Total Bilirubin 0.4 AST 22 ALT 96 H Alkaline Phosphatase 58 Total Protein 6.5 Albumin 2.3 L Vancomycin Trough Microbiology 05/18/18 11:45 Gram Stain - Final Sputum - Endotracheal Sputum Culture - Preliminary gram negative rods 05/18/18 12:40 Aerobic Blood Culture - Preliminary Blood - Peripheral No growth in 1 day Anaerobic Blood Culture - Preliminary No growth in 1 day 05/18/18 12:35 Aerobic Blood Culture - Preliminary Blood - Peripheral No growth in 1 day Anaerobic Blood Culture - Preliminary No growth in 1 day 05/14/18 20:55 Aerobic Blood Culture - Final Blood - Peripheral No growth in 5 days Anaerobic Blood Culture - Final No growth in 5 days 05/14/18 20:46 Aerobic Blood Culture - Final Blood - Peripheral No growth in 5 days Anaerobic Blood Culture - Final No growth in 5 days Review/Management - Diagnosis (1) Toxic encephalopathy Code(s): G92 - Toxic encephalopathy Status: Acute Current Visit: Yes (2) Respiratory failure Code(s): J96.90 - Respiratory failure, unspecified, unspecified whether with hypoxia or hypercapnia Status: Acute Current Visit: Yes (3) Aspiration pneumonia of both lower lobes Code(s): J69.0 - Pneumonitis due to inhalation of food and vomit Status: Acute Current Visit: Yes - Review/Management Plan: Drug-induced encephalopathy. Possible PCP although exact substance in the bag is not known; father thinks he may have overdosed on Sonata in which case he should slowly wake up CT brain negative ARDS, pneumonia ID following mri nml. eeg negative for sz Recommendation on sed gtt's mri cspine for quadraparesis- pending d/w demond
--- NOTE | 2018-05-20 10:56 | MR ---
EXAM DATE: 05/20/2018 10:43 AM EST AGE/SEX: 22 years / Male INDICATIONS: Myelopathy. CLINICAL DATA: This is the patient's initial encounter. Patient reports that signs and symptoms have been present for 2 days and indicates a pain score of 8/10. MEDICAL/SURGICAL HISTORY: None. Tonsillectomy. COMPARISON: [facility], CT CERVICAL SPINE W/O CONTRAST, 04/27/2018.. . TECHNIQUE: Multiplanar, multisequence MRI examination of the cervical spine was performed without co ntrast. FINDINGS: Vertebrae: Normal vertebral body height. Homogeneous marrow signal. Alignment: Straightening of the cervical spine. No anterolisthesis or retrolisthesis.. Cord: Normal configuration and signal. Post Fossa: The cerebellar tonsils are normal in position. Nasogastric tube seen within the esophagus. C2-C3: The thecal sac has a normal configuration. There is no evidence of disc herniation or spinal canal stenosis. The neural foramina are patent bilaterally. C3-C4: The thecal sac has a normal configuration. There is no evidence of disc herniation or spinal canal stenosis. The neural foramina are patent bilaterally. C4-C5: The thecal sac has a normal configuration. There is no evidence of disc herniation or spinal canal stenosis. The neural foramina are patent bilaterally. C5-C6: The thecal sac has a normal configuration. There is no evidence of disc herniation or spinal canal stenosis. The neural foramina are patent bilaterally. C6-C7: The thecal sac has a normal configuration. There is no evidence of disc herniation or spinal canal stenosis. The neural foramina are patent bilaterally. C7-T1: No epidural impressions seen. CONCLUSION: 1. Straightening of the cervical spine. Otherwise, unremarkable exam. Electronically signed by: Uziel Freitas MD 05/20/2018 10:55 AM EST
--- NOTE | 2018-05-20 12:21 | P.PNGS ---
Subjective Interval history: Just returned from MRI Agitated Physical Exam Vital signs: Vital Signs 05/19/18 15:22 05/19/18 16:21 05/19/18 19:00 Temperature Pulse Rate 74 Respiratory Rate 17 Blood Pressure 124/68 Pulse Oximetry 95 100 96 05/19/18 19:30 05/19/18 20:00 05/19/18 20:30 Temperature 98.4 F Pulse Rate 72 75 78 Respiratory Rate Blood Pressure 125/72 115/66 111/60 Pulse Oximetry 97 93 L 93 L 05/19/18 21:00 05/19/18 21:04 05/19/18 21:30 Temperature Pulse Rate 77 76 Respiratory Rate 14 Blood Pressure 111/63 110/63 Pulse Oximetry 95 95 98 05/19/18 22:00 05/19/18 22:30 05/19/18 23:00 Temperature Pulse Rate 74 74 77 Respiratory Rate Blood Pressure 116/60 115/63 119/62 Pulse Oximetry 97 96 93 L 05/19/18 23:30 05/20/18 00:00 05/20/18 00:30 Temperature 98.4 F Pulse Rate 79 76 78 Respiratory Rate Blood Pressure 122/68 122/71 122/64 Pulse Oximetry 90 L 90 L 91 L 05/20/18 01:00 05/20/18 01:30 05/20/18 01:49 Temperature Pulse Rate 85 89 Respiratory Rate 18 Blood Pressure 124/62 122/70 Pulse Oximetry 92 L 93 L 96 05/20/18 02:00 05/20/18 02:30 05/20/18 03:00 Temperature Pulse Rate 86 82 85 Respiratory Rate Blood Pressure 126/65 129/65 126/63 Pulse Oximetry 92 L 94 L 94 L 05/20/18 03:30 05/20/18 04:00 05/20/18 04:31 Temperature 98.1 F Pulse Rate 88 80 84 Respiratory Rate Blood Pressure 112/59 L 121/64 119/58 L Pulse Oximetry 94 L 95 94 L 05/20/18 05:00 05/20/18 05:09 05/20/18 06:00 Temperature Pulse Rate 78 76 Respiratory Rate 16 Blood Pressure Pulse Oximetry 94 L 97 97 05/20/18 08:44 05/20/18 09:25 Temperature Pulse Rate Respiratory Rate 15 Blood Pressure Pulse Oximetry 100 93 L Intake & Output 05/19/18 05/20/1805/20/18 18:59 06:59 18:59 Intake Total 3997.3 / 3997.3 5730.2 / 5730.2 1220 / 1220 Output Total 4155 / 4155 4150 / 4150 Balance -157.7 / -157.7 1580.2 / 1580.2 1220 / 1220 Weight 156 kg Intake: IV 2397.3 / 2397.3 4630.2 / 4630.2 1220 / 1220 Precedex Inj 1,000 MCG In NS 692.3 / 692.3 750 / 750 250 / 250 Inj 240 ML @ 0.2 MCG/KG/HR 8.4 mls/hr IV.CONT TITRATE PRN Rx#: [id number] Versed Inj 100 mg In 100 ml @ 2 100 / 100 100 / 100 100 / 100 MG/HR 2 mls/hr IV.CONT TITRATE PRN Rx#:[id number] Diprivan 1000 mg/100 ml Inj 1, 485 / 485 700 / 700 100 / 100 000 mg In 100 ml @ 5 MCG/KG/MIN 4.77 mls/hr IV.CONT TITRATE PRN Rx#:[id number] Merrem Inj 1,000 MG In NS Inj 100 / 100 200 / 200 100 ML @ 200 mls/hr IV.SIG Q8H [facility] Rx#:[id number] Mycamine Inj 150 MG In NS Inj 100 / 100 100 ML @ 100 mls/hr IV.SIG Q24H [facility] Rx#:[id number] MVI-12 Inj 10 ML Folvite Inj 1 2009.2 / 2010.2 MG In Clinimix E 4.25%/D5W Inj 2,000 ML @ 83 mls/hr IV.SIG Q24H [facility] Rx#:[id number] Vancomycin Inj 2,000 MG In NS 520 / 520 520 / 520 520 / 520 Inj 500 ML @ 250 mls/hr IV.SIG Q8H [facility] Rx#:[id number] fentaNYL 10 mcg/mL Premix Drip 500 / 500 250 / 250 250 / 250 2,500 mcg In 250 ml @ 50 MCG/HR 5 mls/hr IV.SIG TITRATE PRN Rx #:[id number] Tube Irrigant 100 / 100 100 / 100 Anesthesia Amount 500 / 500 Other 1000 / 1000 1000 / 1000 Output: Urine 3950 / 3950 3950 / 3950 Stool 100 / 100 100 / 100 Estimated Blood Loss 5 / 5 Gastric Drainage 100 / 100 100 / 100 Orogastric Tube 100 / 100 100 / 100 Other: Other Intake Source Saline Solution Saline Solution Date of Last Bowel Movement 05/19/18 05/19/18 Narrative: Awake; agitated Trach in place without complications; no bleeding - Urinary Catheter Management Indwelling Urethral Catheter Cath placed during this visit: yes, but has since been removed by the nurse Reason for continuing: Continue criteria not met Insertion date: 05/16/18 Insertion time: 02:25 Removal date: 05/18/18 Removal time: 17:30 Straight Cath placed during this visit: yes, but has since been removed by the nurse Reason for continuing: Acute urinary retention Insertion date: 04/30/18 Insertion time: 05:00 Removal date: 04/30/18 Removal time: 05:00 Results - Labs 05/20/18 03:30 05/20/18 03:30 Laboratory Results - last 24 hr 05/19/18 05/19/18 05/19/18 18:52 18:53 23:56 WBC RBC Hgb Hct MCV MCH MCHC RDW Plt Count MPV Neut % (Auto) Lymph % (Auto) [place] % (Auto) Eos % (Auto) Baso % (Auto) Neut # (Auto) Lymph # (Auto) [place] # (Auto) Eos # (Auto) Baso # (Auto) WBC Differential Differential Comment Sodium Potassium Chloride Carbon Dioxide Anion Gap BUN Creatinine Estimated GFR POC Glucose 135 H 139 H Random Glucose Calcium Magnesium Total Bilirubin AST ALT Alkaline Phosphatase Total Protein Albumin Vancomycin Trough 10.8 H 05/20/18 05/20/18 05/20/18 01:40 01:57 03:30 WBC 12.5 H RBC 3.40 L Hgb 9.9 L Hct 30.6 L MCV 90.2 MCH 29.2 MCHC 32.4 RDW 15.4 Plt Count 236 MPV 8.1 Neut % (Auto) 78.9 H Lymph % (Auto) 14.4 [place] % (Auto) 5.5 Eos % (Auto) 0.4 Baso % (Auto) 0.8 Neut # (Auto) 9.9 H Lymph # (Auto) 1.8 [place] # (Auto) 0.7 Eos # (Auto) 0.1 Baso # (Auto) 0.1 WBC Differential . Differential Comment Auto diff final Sodium Potassium Chloride Carbon Dioxide Anion Gap BUN Creatinine Estimated GFR POC Glucose 137 H Random Glucose Calcium Magnesium Total Bilirubin AST ALT Alkaline Phosphatase Total Protein Albumin Vancomycin Trough 14.3 H 05/20/18 03:30 WBC RBC Hgb Hct MCV MCH MCHC RDW Plt Count MPV Neut % (Auto) Lymph % (Auto) [place] % (Auto) Eos % (Auto) Baso % (Auto) Neut # (Auto) Lymph # (Auto) [place] # (Auto) Eos # (Auto) Baso # (Auto) WBC Differential Differential Comment Sodium 140 Potassium 4.2 Chloride 107 Carbon Dioxide 24.5 Anion Gap 9 BUN 22 H Creatinine 0.47 L Estimated GFR Greater than 89 POC Glucose Random Glucose 164 H Calcium 7.7 L Magnesium 2.0 Total Bilirubin 0.4 AST 22 ALT 96 H Alkaline Phosphatase 58 Total Protein 6.5 Albumin 2.3 L Vancomycin Trough - Imaging Imaging: ITS Impressions Head CT 04/27/18 11:31 CONCLUSION: 1. Negative CT Head non contrast. . Abdomen/Pelvis CT 04/27/18 11:35 CONCLUSION: 1. Extensive atelectasis in both lower lobes. 2. The Stone catheter needs to be deflated and advanced into the bladder. The catheter is at the level of the prosthetic urethra. 3. No findings to indicate a bowel obstruction are seen. No free air free fluid is identified. Chest CT 04/27/18 11:35 CONCLUSION: 1. Consolidation both posterior lungs with air bronchograms. This could represent bilateral pneumonia or aspiration. Cervical Spine CT 04/27/18 11:36 CONCLUSION: 1. Negative trauma study. Lumbar Spine CT 04/27/18 11:59 CONCLUSION: 1. Negative for acute process 2. There is no evidence for vertebral compression. Head MRI 04/29/18 07:05 CONCLUSION: 1. Negative MRI of the brain. 2. Inflammatory process cannot be entirely excluded. 3. There are no infarcts identified. Abdomen X-Ray 05/17/18 00:00 CONCLUSION: No evidence of bowel obstruction. Dobbhoff tube is seen within the stomach and the proximal port of the nasogastric tube is within the proximal stomach. Venous Doppler Study 05/18/18 00:00 CONCLUSION: 1. Left lower extremity DVT involving the posterior tibial vein from the mid calf to the ankle. 2. No other evidence of DVT at or above the knee in either lower extremity. Chest X-Ray 05/18/18 00:26 CONCLUSION: No significant interval change. Persistent right greater than left pulmonary opacity. Cervical Spine MRI 05/20/18 10:29 CONCLUSION: 1. Straightening of the cervical spine. Otherwise, unremarkable exam. Assessment and Plan - Assessment (1) Respiratory failure Code(s): J96.90 - Respiratory failure, unspecified, unspecified whether with hypoxia or hypercapnia Status: Acute Plan: 22 year old male with overdose; aspiration; ventilator dependent respiratory failure in need of tracheostomy tube placement. -POD1 trach placement -Continue routine trach care -Vent per CCM -Plan to remove sutures next week -GS will only see PRN until then; please call with any questions
--- NOTE | 2018-05-20 12:21 | P.PNCC ---
Subjective Subjective Remarks/Hospital Course: Patient is approximately 22 years old male obese, was found on the floor by a family member, downtime is unknown. EMS was called, patient was given Narcan with no response, he was intubated on the scene, apparently GCS 3. Found bag of PCP next to the patient. Patient has history of psychiatric disorder ? bipolar disorder and I am told he has attempted suicide in the past. There is also mention about suspicion of ethylene glycol ingestion, but his serum osmolality is 307 his osmolar gap is only 13. Bicarb is 26, ethylene glycol seems unlikely. Ethanol was negative urine drug screen only positive for benzo. I evaluated the patient in the ICU at the [facility]. Patient had a CT of the head which was negative. Rest of the workup unremarkable except for bibasilar atelectasis/aspiration pneumonia. Patient's white count is elevated at 17.1, glucose is 232 lactic acid was 2.8. He received multiple fluid boluses. At this time he is not on any sedation but remains unresponsive no response to deep pain 04/28 Patient remains intubated off sedation unresponsive. Afebrile. 04/29: MRI of the brain revealed no acute intracranial findings. EEG to be performed tomorrow. More arousable and moves all 4 extremities but not following commands. Placed on dexamethasone E drip. 2 feeds will be restarted 04/30: T-max 101.4. Currently afebrile. No bowel movement since admission. Arousable and follows simple commands late last night but currently on sedation for agitation. Increased FiO2 noted. Will attempt to gently diurese and continue antibiotics for pansensitive staph aureus/group a beta strep sputum 05/01 Patient is sedated with Fentanyl, Diprivan and intubated. T:101.1 at 5am. Placed on APRV overnight. 05/02 Patient is sedated with Diprivan and Fentanyl drips. Tmax 101.3, on PC/AC with PEEP:12, FIO2 80%, IP:30 05/03 Patient is heavily sedated with Diprivan, Fentanyl and Versed . On PC/AC with PEEP: 14 and FIO2 100$ sats 92%, CXR yesterday showed diffuse b/l pulm infiltrates, started on Flolan nebs. Had Tmax 102.6 last night. 05/04 Patient was placed on rotoprone bed yesterday sedated with Diprivan, Versed and Fentanyl infusion and on neuromuscular blockade( Nimbex) On PC/AC His FIO2 requirements is better now on FIO2:50% from 100% with PEEP:14. T:102.6 05/05 Patient remains intubated and sedated on Bumex drip 0.5mg/hr, T:99.7 at 3am. On PC/AC with PEEP:1 and FIO2 60%- sats 95%. 05/06 Patient remains sedated and intubated on rotoprone bed with improvements in his oxygenation. Now on PC/AC with PEEP:10, FIO2 40%. Afebrile. On Bumex drip 0.5mg/hr. 05/07 Patient remains on rotoprone bed sedated and on Nimbex drip. He is also on Bumex drip 0.5mg/hr with good urine output . 05/08 Patient remains sedated and intubated. On Flolan, and Bumex drip. Afebrile. 05/09 Patient desat overnight now on PC/AC with PEEP:10 and FIO2 100% sats 96%. Had T: 100.4 at midnight. Sputum cx 05/07 GNR. Remains sedated on Flolan and Bumex drip. 05/10: Resting in bed. Remains on PC/AC rate increased to 16. FiO2 80%. Low- grade fevers noted. Remains on epoprostenol and bumetanide drips. Hypertension noted. Aspirated this a.m. and so discontinued tube feeding. We will start PPN today. 05/11 Patient remains on rotoprone bed, sedated and intubated. Afebrile. On PC/ AC with PEEP;10 and FIO2 55%.On Flolan and Bumex drip 0.5mg/hr 05/12 Remains sedated, intubated and on Rotoprone bed. PC/AC with PEEP: 12 and FIO2 70% sats 96%. T:100.4 last night. On Flolan and Bumex drip. 05/14: Off rotaprone since yesterday, nimbex discontinued, PEEP 14 and FiO2 50% with sats in mid 90s. Still on flolan. 05/15: No acute issues overnight, plan is to wean PEEP slowly over the weekend for tracheostomy on Friday 05/18. 05/16: Flolan weaned yesterday, tolerated well, will continue to wean today. PEEP down to 10. O2 sats low to mid 90s. 05/17: TFs held overnight for high residuals; KUB showed Dobhoff tube in distal stomach with NGT in proximal stomach. Will hold for now, will need to be NPO at midnight for hopeful trach tomorrow. Continue PPN for now. 05/18: Patient had a desat event last night and had to have PEEP increased to 14. Pulse ox probe changed this morning and noted to be 100, now weaned back down to PEEP 10 and FiO2 60%. Will continue to wean FiO2. Flolan off since yesterday. Trach today or tomorrow. 05/19: Trach today. PEEP 8, FiO2 40%. No overnight events. 05/20: Trach performed in OR yesterday afternoon, no immediate complications, sent for MRI C spine this morning by neurology to evaluate for myelopathy which showed no acute abnormalities. Sedation weaned, patient now awake and alert, follows commands, mouths words. Objective Vital Signs / I&O: Vital Signs 05/19/18 15:22 05/19/18 16:21 05/19/18 19:00 Temperature Pulse Rate 74 Respiratory Rate 17 Blood Pressure 124/68 Pulse Oximetry 95 100 96 05/19/18 19:30 05/19/18 20:00 05/19/18 20:30 Temperature 98.4 F Pulse Rate 72 75 78 Respiratory Rate Blood Pressure 125/72 115/66 111/60 Pulse Oximetry 97 93 L 93 L 05/19/18 21:00 05/19/18 21:04 05/19/18 21:30 Temperature Pulse Rate 77 76 Respiratory Rate 14 Blood Pressure 111/63 110/63 Pulse Oximetry 95 95 98 05/19/18 22:00 05/19/18 22:30 05/19/18 23:00 Temperature Pulse Rate 74 74 77 Respiratory Rate Blood Pressure 116/60 115/63 119/62 Pulse Oximetry 97 96 93 L 05/19/18 23:30 05/20/18 00:00 05/20/18 00:30 Temperature 98.4 F Pulse Rate 79 76 78 Respiratory Rate Blood Pressure 122/68 122/71 122/64 Pulse Oximetry 90 L 90 L 91 L 05/20/18 01:00 05/20/18 01:30 05/20/18 01:49 Temperature Pulse Rate 85 89 Respiratory Rate 18 Blood Pressure 124/62 122/70 Pulse Oximetry 92 L 93 L 96 05/20/18 02:00 05/20/18 02:30 05/20/18 03:00 Temperature Pulse Rate 86 82 85 Respiratory Rate Blood Pressure 126/65 129/65 126/63 Pulse Oximetry 92 L 94 L 94 L 05/20/18 03:30 05/20/18 04:00 05/20/18 04:31 Temperature 98.1 F Pulse Rate 88 80 84 Respiratory Rate Blood Pressure 112/59 L 121/64 119/58 L Pulse Oximetry 94 L 95 94 L 05/20/18 05:00 05/20/18 05:09 05/20/18 06:00 Temperature Pulse Rate 78 76 Respiratory Rate 16 Blood Pressure Pulse Oximetry 94 L 97 97 05/20/18 08:44 05/20/18 09:25 Temperature Pulse Rate Respiratory Rate 15 Blood Pressure Pulse Oximetry 100 93 L Intake & Output 05/19/18 05/20/18 05/20/18 18:59 06:59 18:59 Intake Total 3997.3 / 3997.3 5730.2 / 5730.2 970 / 970 Output Total 4155 / 4155 4150 / 4150 Balance -157.7 / -157.7 1580.2 / 1580.2 970 / 970 Weight 156 kg Intake: IV 2397.3 / 2397.3 4630.2 / 4630.2 970 / 970 Precedex Inj 1,000 MCG In NS 692.3 / 692.3 750 / 750 Inj 240 ML @ 0.2 MCG/KG/HR 8.4 mls/hr IV.CONT TITRATE PRN Rx#: [id number] Versed Inj 100 mg In 100 ml @ 2 100 / 100 100 / 100 100 / 100 MG/HR 2 mls/hr IV.CONT TITRATE PRN Rx#:[id number] Diprivan 1000 mg/100 ml Inj 1, 485 / 485 700 / 700 100 / 100 000 mg In 100 ml @ 5 MCG/KG/MIN 4.77 mls/hr IV.CONT TITRATE PRN Rx#:[id number] Merrem Inj 1,000 MG In NS Inj 100 / 100 200 / 200 100 ML @ 200 mls/hr IV.SIG Q8H [facility] Rx#:[id number] Mycamine Inj 150 MG In NS Inj 100 / 100 100 ML @ 100 mls/hr IV.SIG Q24H [facility] Rx#:[id number] MVI-12 Inj 10 ML Folvite Inj 1 2009.2 / 2009.2 MG In Clinimix E 4.25%/D5W Inj 2,000 ML @ 83 mls/hr IV.SIG Q24H [facility] Rx#:[id number] Vancomycin Inj 2,000 MG In NS 520 / 520 520 / 520 520 / 520 Inj 500 ML @ 250 mls/hr IV.SIG Q8H [facility] Rx#:[id number] fentaNYL 10 mcg/mL Premix Drip 500 / 500 250 / 250 250 / 250 2,500 mcg In 250 ml @ 50 MCG/HR 5 mls/hr IV.SIG TITRATE PRN Rx #:[id number] Tube Irrigant 100 / 100 100 / 100 Anesthesia Amount 500 / 500 Other 1000 / 1000 1000 / 1000 Output: Urine 3950 / 3950 3950 / 3950 Stool 100 / 100 100 / 100 Estimated Blood Loss 5 / 5 Gastric Drainage 100 / 100 100 / 100 Orogastric Tube 100 / 100 100 / 100 Other: Other Intake Source Saline Solution Saline Solution Date of Last Bowel Movement 05/19/18 05/19/18 Result Diagrams: 05/20/18 03:30 05/20/18 03:30 Objective Remarks: GENERAL: Sitting up in bed, awake and alert SKIN: Warm and dry HEAD: NCAT NECK: Supple, tracheostomy present, clean and dry CARDIOVASCULAR: Regular rate and rhythm in 80s RESPIRATORY: Improved breath sounds bilaterally GASTROINTESTINAL: Abdomen obese, soft, non-tender in all quadrants MUSCULOSKELETAL: Trace peripheral edema, improving Neuro: RASS +1, makes good eye contact, follows commands, globally weak in all extremities Assessment and Plan - Assessment and Plan Plan: NEURO/PSYCH: Acute metabolic encephalopathy Suspected PCP overdose Suspected ethylene glycol overdose Suicide attempt -Patient much more awake and alert today, continue to wean sedation as much as tolerated -Delirium precautions * Lights on/ shades up during the day, limit night time disruptions, frequent reorientation, patient's parents brought his glasses in from home and he should be provided with these whenever awake -Psychiatric consult after neurological recovery, previously on Wellbutrin. -CT of the head negative. MRI of brain negative. MRI C spine negative. -EEG 05/18, 04/30, 04/28 with no epileptic activity RESP: Acute hypoxemic respiratory failure Severe ARDS on Prone therapy Bibasilar aspiration pneumonitis Tobacco abuse -Continue with vent support keep sats >92% -s/p tracheostomy, POD #1 -Tolerated pressure support trial today, continue daily -Ventilator bundle. Bronchodilators (ipratropium/albuterol, Q4), Solumedrol 40mg Q8 s/p bronch 05/02 thick secretions suctioned to clear. No evidence of EBL or bleeding. -Nicotine patch CV: Essential hypertension -Monitor HR and BP keep MAP>65mmHg -On Lopressor 50mg TID -Echo 04/28: EF 60-65%, PASP 36mmHg GI: Elevated ALT Hypoalbuminemia - IV famotidine. -Docusate serum/senna 1 tablet twice daily for bowel regimen. Lactulose 30 cc twice daily and MiraLAX 17 g twice daily. Renal/FEN/: -Monitor renal function, I/O's, electrolytes replacement as needed -Trickle TFs, advance as tolerated -Would like to d/c PPN when tolerating TFs x at least 24 hours -Continue BID bumex, urine output continues to be excellent but patient receives a large volume of meds/ PPN per day. ID: MSSA/group A beta strep pneumonia Superadded Enterobacter/Klebsiella ammonia Abx per ID- continue merrem, micafungin, vanco 05/07 Sputm cx: andrews-sensitive Kleb pneumonia, Enterobacter. Repeat cultures from 05/13 have no growth at 5 days, another set of cultures sent 05/18 and pending 04/27 Sputum: Staph aureus/MSSA and beta strep not group A. 05/03 BC: Coag neg staph 05/02 bronch cx: Staph Aureus HEME: Normocytic anemia Leukocytosis-- resolved -Anemia of chronic illness, stable ENDO/FEN: Hyperglycemia -Electrolyte replacement per protocol -Sliding scale insulin -Continue solumedrol q12 (weaned yesterday from q8) MSK: Myopathy of critical illness, severe deconditioning PT/ OT evals appreciated, multipodus boot ordered, patient may benefit from wrist splints/ passive ROM exercises, now awake and alert and can benefit from communicative aids PROPH: GI prophylaxis- On Pepcid DVT prophylaxis- Lovenox 40mg SQ BID Doppler US LE: thrombosis of the posterior tibial vein within the calf bilaterally. Repeat duplex on 05/18 shows persistent LLE below the knee DVT which has not propagated proximally. No RLE DVT seen. Case management consulted to help with discharge planning. Patient will need aggressive PT/ OT and will likely need prolonged wean from ventilator given extent of physical deconditioning. LINES: -PICC placed on 05/08/18 OVERALL: Patient significantly improved over the past week. Would like to get him OOB to chair tomorrow, start aggressively weaning vent, advance TFs, dispo planning. Level 2 follow up To help prompt me to consider important information that might be impacting today's encounter and assessment, information from prior notes written by myself or my colleagues may have been "brought forward" into today's note. My signature on this note, however, is an attestation that I personally performed the exam, history, and/or decision-making noted today, and, unless otherwise indicated, the interactions with patient, family, and staff as well as the review of records all occurred today. I also attest that the listed assessment and stated plan reflect my best clinical judgment today based on the combination of historical information, prior notes, and today's exam/ interactions. Code Status: Full
--- NOTE | 2018-05-20 15:28 | P.PNWCN ---
Wound Care Nurse Consult Description: Received wound management consult to follow up with patient for new DTI on L shoulder, L orthodoxy and deterioration of sacral wound from Doctor Zaira Cullen Communicated with: ZACK SALAZAR and Doctor Zaira Cullen Recommendation: 1.Please cleanse wounds to sacral area, and L shoulder with normal saline only. 2.Apply fiordaliza thickness of Santyl ointment to wound bed with saline moistened 2x2 fluffed gauze packed loosely and avoiding intact skin surrounding wound. 3.Kelayres periwound with Cavilon skin barrier film spray 4.Cover wounds with optifoam gentle 4x4 or 6x6. 5.Change daily 6. Continue to to turn patient every 2 hours and PRN for comfort and offloading of pressure from lien prominences from L side to R side, limiting time spent on back for P.T. and meals. Wound/Pressure Injury - Wound Midline Sacrum Wound Staging: Stage IV Wound Assessment: Ongoing Wound Type: Pressure Injury Is This a Chronic Wound: No Requested from Provider a Wound Care Consult: Yes (Wound care is following patient) Length (cm): 2 Width (cm): 6 Depth (cm): 0.5 (~0.5cm) Wound Bed Appearance: Necrotic, Red, White Wound Bed Appearance: Wound bed presents with ~40% visible fascia to wound bed, ~20% brown/yellow slough and ~ 40% red non granulation tissue Surrounding Tissue Appearance: [place] Surrounding Tissue Temperature: Cool Drainage Description: Serosanguinous Drainage Amount: Scant Drainage Odor: No Odor Dressing Status: Changed Cleansing Solution: Saline Cover Dressing: Optifoam gentle 6x6 dressing Wound Dressing Change Date: 05/20/18 Wound Margin Description: Wound margins are well defined, but uneven Left Shoulder Wound Staging: Unstageable Wound Assessment: Ongoing Wound Type: Pressure Injury Is This a Chronic Wound: No Requested from Provider a Wound Care Consult: Yes (Wound care has been following patient) Length (cm): 3.3 Width (cm): 3 Depth (cm): 0.4 Wound Bed Appearance: Necrotic, Red, Yellow Wound Bed Appearance: Wound presents with ~50% loosely adherent eschar, ~40% red non granulation tissue and ~10% yellow slough. Wound presents as two wounds closely together Surrounding Tissue Appearance: [place] Surrounding Tissue Temperature: Cool Drainage Description: Serosanguinous Drainage Amount: Scant Drainage Odor: No Odor Dressing Status: Open to Air Cleansing Solution: Saline Wound Margin Description: Wound margins are well defined - Additional Information Patient seen on [facility] [place] for follow up of sacral wound and evaluation of new wounds to L shoulder and orthodoxy. Patient was turned with the assistance of ZACK Warren, ZACK Trevino and development writer toward the R side to reveal open wound to sacral area. Previously this wound was DTI. Full wound description and measurements are noted above. Wound is a stage IV due to visible fascia in wound bed. Patient also has slough in wound bed. Dignisheild is in place for fecal management, with purewick for urinary incontinence. [facility] airloss bed with two ultra sorb pads in staggered fashion. Cleansed wound to sacral area with normal saline and patted dry. Skin barrier film was applied to periwound and wound was covered with Optifoam gentle 6x6 Patient was then positioned on back to assess L shoulder wound. Patient was previously laying on rotoprone bed. Wound etiology appears to be pressure . Wound to L shoulder is actually two wounds that are by a bridge of skin measured as one. Wound presents with ~50% loosely adherent eschar ~40% red non granulation tissue and ~10% yellow slough. Full wound measurements and descriptions are noted above. Wound was cleansed with normal saline and wound was left open to air. RN to apply dressing to L shoulder wound as recommended above when supplies are obtained. L head wound was then assessed. Wound is noted as intact scab. Wound was left open to air.
[2018-05-20] MEDS: Collagenase Oint 30 GM Tube TOPICAL SCH (16:18)
[2018-05-20] MEDS: Micafungin Inj 150 MG in Sodium Chlor 0.9% Inj 100 ML IV.SIG SCH (17:22)
--- NOTE | 2018-05-20 18:49 | P.PNADD ---
Addendum to Inpatient Note Additional information: pt seen around 1800 full note to follow
[2018-05-20] MEDS: FOLIC ACID IV.SIG SCH (20:03)
[2018-05-20] MEDS: [UNRECOGNIZED DRUG - OTHER] IV.SIG SCH (20:03)
[2018-05-20] MEDS: MULTIVITAMIN IV.SIG SCH (20:03)
--- NOTE | 2018-05-20 22:33 | P.PNID ---
Subjective Remarks: delayed entry Pt was seen earlier today cont to improve clinically On CPAP sp trach he is growing Serratia from sputum and another GNB yet to be ID'd Antibiotics: meropenem micafungin vancomycin Lines: PICC Past Medical History: reviewed. Allergies/Adverse Reactions: Allergies shellfish derived Allergy (Verified 04/29/18 13:12) Anaphylaxis No Known Allergies Allergy (Uncoded 04/29/18 13:12) Objective Vital Signs 05/19/18 23:00 05/19/18 23:30 05/20/18 00:00 Temperature 98.4 F Pulse Rate 77 79 76 Respiratory Rate Blood Pressure 119/62 122/68 122/71 Pulse Oximetry 93 L 90 L 90 L 05/20/18 00:30 05/20/18 01:00 05/20/18 01:30 Temperature Pulse Rate 78 85 89 Respiratory Rate Blood Pressure 122/64 124/62 122/70 Pulse Oximetry 91 L 92 L 93 L 05/20/18 01:49 05/20/18 02:00 05/20/18 02:30 Temperature Pulse Rate 86 82 Respiratory Rate 18 Blood Pressure 126/65 129/65 Pulse Oximetry 96 92 L 94 L 05/20/18 03:00 05/20/18 03:30 05/20/18 04:00 Temperature 98.1 F Pulse Rate 85 88 80 Respiratory Rate Blood Pressure 126/63 112/59 L 121/64 Pulse Oximetry 94 L 94 L 95 05/20/18 04:31 05/20/18 05:00 05/20/18 05:09 Temperature Pulse Rate 84 78 Respiratory Rate 16 Blood Pressure 119/58 L Pulse Oximetry 94 L 94 L 97 05/20/18 06:00 05/20/18 06:57 05/20/18 07:00 Temperature Pulse Rate 76 81 77 Respiratory Rate Blood Pressure 110/67 111/66 Pulse Oximetry 97 79 L 96 05/20/18 07:30 05/20/18 08:00 05/20/18 08:30 Temperature Pulse Rate 75 78 76 Respiratory Rate Blood Pressure 113/67 114/65 111/65 Pulse Oximetry 99 100 100 05/20/18 08:44 05/20/18 09:00 05/20/18 09:01 Temperature Pulse Rate 81 82 Respiratory Rate 15 Blood Pressure 112/56 L Pulse Oximetry 100 96 96 05/20/18 09:25 05/20/18 10:00 05/20/18 10:13 Temperature Pulse Rate 0 L 0 L Respiratory Rate Blood Pressure Pulse Oximetry 93 L 05/20/18 10:21 05/20/18 10:30 05/20/18 10:40 Temperature Pulse Rate 0 L Respiratory Rate Blood Pressure 108/58 L 107/54 L 116/54 L Pulse Oximetry 84 L 05/20/18 11:00 05/20/18 11:01 05/20/18 12:00 Temperature Pulse Rate 80 81 79 Respiratory Rate Blood Pressure 128/58 L Pulse Oximetry 90 L 90 L 94 L 05/20/18 12:01 05/20/18 12:25 05/20/18 13:00 Temperature Pulse Rate 79 79 Respiratory Rate 19 Blood Pressure 118/58 L 117/58 L Pulse Oximetry 95 96 99 05/20/18 14:00 05/20/18 15:00 05/20/18 15:01 Temperature 98.8 F Pulse Rate 87 84 86 Respiratory Rate Blood Pressure 127/76 122/67 Pulse Oximetry 97 98 98 05/20/18 16:00 05/20/18 16:01 05/20/18 16:46 Temperature Pulse Rate 85 87 Respiratory Rate 30 H Blood Pressure 121/53 L Pulse Oximetry 97 97 98 05/20/18 17:00 05/20/18 22:07 Temperature Pulse Rate 86 Respiratory Rate 15 Blood Pressure 126/76 Pulse Oximetry 98 95 Intake & Output 05/20/18 05/20/18 05/21/18 06:59 18:59 06:59 Intake Total 5730.2 / 5730.2 2396 / 2396 450 / 450 Output Total 4150 / 4150 1100 / 1100 Balance 1580.2 / 1580.2 1296 / 1296 450 / 450 Weight 156 kg Intake: IV 4630.2 / 4630.2 2390 / 2390 450 / 450 Precedex Inj 1,000 MCG In NS 750 / 750 500 / 500 250 / 250 Inj 240 ML @ 0.2 MCG/KG/HR 8.4 mls/hr IV.CONT TITRATE PRN Rx#: [id number] Versed Inj 100 mg In 100 ml @ 2 100 / 100 200 / 200 MG/HR 2 mls/hr IV.CONT TITRATE PRN Rx#:[id number] Diprivan 1000 mg/100 ml Inj 1, 700 / 700 100 / 100 200 / 200 000 mg In 100 ml @ 5 MCG/KG/MIN 4.77 mls/hr IV.CONT TITRATE PRN Rx#:[id number] Merrem Inj 1,000 MG In NS Inj 200 / 200 200 / 200 100 ML @ 200 mls/hr IV.SIG Q8H [facility] Rx#:[id number] Mycamine Inj 150 MG In NS Inj 100 / 100 100 / 100 100 ML @ 100 mls/hr IV.SIG Q24H [facility] Rx#:[id number] MVI-12 Inj 10 ML Folvite Inj 1 2009.2 / 2010.2 MG In Clinimix E 4.25%/D5W Inj 2,000 ML @ 83 mls/hr IV.SIG Q24H [facility] Rx#:[id number] Vancomycin Inj 2,000 MG In NS 520 / 520 1040 / 1040 Inj 500 ML @ 250 mls/hr IV.SIG Q8H [facility] Rx#:[id number] fentaNYL 10 mcg/mL Premix Drip 250 / 250 250 / 250 2,500 mcg In 250 ml @ 50 MCG/HR 5 mls/hr IV.SIG TITRATE PRN Rx #:[id number] Oral 0 / 0 Tube Feeding 6 / 6 Tube Irrigant 100 / 100 Other 1000 / 1000 Output: Urine 3950 / 3950 600 / 600 Stool 100 / 100 500 / 500 Gastric Drainage 100 / 100 Orogastric Tube 100 / 100 Other: Other Intake Source Saline Solution # Voids 5 Date of Last Bowel Movement 05/19/18 05/20/18 05/18/18 11:45 Sputum - Endotracheal Gram Stain - Final 05/18/18 11:45 Sputum - Endotracheal Sputum Culture - Preliminary Serratia marcescens gram negative rods 05/18/18 12:40 Blood - Peripheral Aerobic Blood Culture - Preliminary No growth in 2 days 05/18/18 12:40 Blood - Peripheral Anaerobic Blood Culture - Preliminary No growth in 2 days 05/18/18 12:35 Blood - Peripheral Aerobic Blood Culture - Preliminary No growth in 2 days 05/18/18 12:35 Blood - Peripheral Anaerobic Blood Culture - Preliminary No growth in 2 days 05/14/18 20:55 Blood - Peripheral Aerobic Blood Culture - Final No growth in 5 days 05/14/18 20:55 Blood - Peripheral Anaerobic Blood Culture - Final No growth in 5 days 05/14/18 20:46 Blood - Peripheral Aerobic Blood Culture - Final No growth in 5 days 05/14/18 20:46 Blood - Peripheral Anaerobic Blood Culture - Final No growth in 5 days Lab - Hematology Results 05/19/18 05/20/18 04:33 03:30 WBC 15.4 H 12.5 H RBC 3.35 L 3.40 L Hgb 10.0 L 9.9 L Hct 29.8 L 30.6 L MCV 88.8 90.2 MCH 29.7 29.2 MCHC 33.5 32.4 RDW 15.4 15.4 Plt Count 242 236 MPV 8.2 8.1 Neut % (Auto) 79.6 H 78.9 H Lymph % (Auto) 13.8 14.4 Alpine % (Auto) 5.7 5.5 Eos % (Auto) 0.5 0.4 Baso % (Auto) 0.4 0.8 Neut # (Auto) 12.3 H 9.9 H Lymph # (Auto) 2.1 1.8 Alpine # (Auto) 0.9 0.7 Eos # (Auto) 0.1 0.1 Baso # (Auto) 0.1 0.1 WBC Differential . . Differential Comment Auto diff final Auto diff final Lab - Chemistry Results 05/18/18 05/19/18 05/19/18 23:26 04:33 11:27 Sodium 140 Potassium 4.0 Chloride 106 Carbon Dioxide 26.4 Anion Gap 8 BUN 26 H Creatinine 0.50 L Estimated GFR Greater than 89 POC Glucose 158 H 146 H Random Glucose 136 H Calcium 8.4 L Magnesium 2.2 Total Bilirubin 0.3 AST 12 L ALT 104 H Alkaline Phosphatase 58 Total Protein 6.7 D Albumin 2.3 L 05/19/18 05/19/18 05/20/18 18:53 23:56 01:57 Sodium Potassium Chloride Carbon Dioxide Anion Gap BUN Creatinine Estimated GFR POC Glucose 135 H 139 H 137 H Random Glucose Calcium Magnesium Total Bilirubin AST ALT Alkaline Phosphatase Total Protein Albumin 05/20/18 05/20/18 05/20/18 03:30 13:30 17:14 Sodium 140 Potassium 4.2 Chloride 107 Carbon Dioxide 24.5 Anion Gap 9 BUN 22 H Creatinine 0.47 L Estimated GFR Greater than 89 POC Glucose 122 H 106 Random Glucose 164 H Calcium 7.7 L Magnesium 2.0 Total Bilirubin 0.4 AST 22 ALT 96 H Alkaline Phosphatase 58 Total Protein 6.5 Albumin 2.3 L Imaging: ITS Impressions Head CT 04/27/18 11:31 CONCLUSION: 1. Negative CT Head non contrast. . Abdomen/Pelvis CT 04/27/18 11:35 CONCLUSION: 1. Extensive atelectasis in both lower lobes. 2. The Stone catheter needs to be deflated and advanced into the bladder. The catheter is at the level of the prosthetic urethra. 3. No findings to indicate a bowel obstruction are seen. No free air free fluid is identified. Chest CT 04/27/18 11:35 CONCLUSION: 1. Consolidation both posterior lungs with air bronchograms. This could represent bilateral pneumonia or aspiration. Cervical Spine CT 04/27/18 11:36 CONCLUSION: 1. Negative trauma study. Lumbar Spine CT 04/27/18 11:59 CONCLUSION: 1. Negative for acute process 2. There is no evidence for vertebral compression. Head MRI 04/29/18 07:05 CONCLUSION: 1. Negative MRI of the brain. 2. Inflammatory process cannot be entirely excluded. 3. There are no infarcts identified. Abdomen X-Ray 05/17/18 00:00 CONCLUSION: No evidence of bowel obstruction. Dobbhoff tube is seen within the stomach and the proximal port of the nasogastric tube is within the proximal stomach. Venous Doppler Study 05/18/18 00:00 CONCLUSION: 1. Left lower extremity DVT involving the posterior tibial vein from the mid calf to the ankle. 2. No other evidence of DVT at or above the knee in either lower extremity. Chest X-Ray 05/18/18 00:26 CONCLUSION: No significant interval change. Persistent right greater than left pulmonary opacity. Cervical Spine MRI 05/20/18 10:29 CONCLUSION: 1. Straightening of the cervical spine. Otherwise, unremarkable exam. Physical Exam: GENERAL: Obese male, on the vent, sedated, NAD SKIN: Cool and dry. no rash. HEAD: Atraumatic. Normocephalic. EYES: Face mildly edematous. NO icterus, no injection ENT: moist mucosae NECK: Trach in place CARDIOVASCULAR: RRR, no murmurs RESPIRATORY: Coarse BS mikhail, decreased at bases GASTROINTESTINAL: soft abdomen, obese, no reaction to palpation MUSCULOSKELETAL: Extremities without clubbing, cyanosis, resolution of edema. NEUROLOGICAL: awake, alert, communicates PSYCHIATRIC: calm : Stone in place ,urine clear LINE: NO evidence of infection Assessment and Plan - Plan Sepsis ongoing possible new. PNA, probably aspiration Acute VDRF on rotaprone bed. MSSA pneumonia. GNR pneumonia: Kleb, Enterobacter Morbid obesity with likely obesity- hypoventilation sd Coag neg staph bacteremia, low grade doubt clin significance New fever Leukocytosis diarrhea, c.diff negative UA negative new fever - improved with new abx Rx Growing GNB in sputum Recs: cont meropenem dc micafungin vanco fu ID/S on 2nd sputum isolate will further adjust abx per clx dw family D/W RN Im off till Saturday 05/26. Other ID physicians will cover for me
[2018-05-21] MEDS: Propofol 1000 mg/100 ml Inj 1,000 MG/100 ML BOTTLE IV.CONT PRN ×6 (00:46→22:32)
[2018-05-21] MEDS: Insulin NovoLOG Aspart Correctional Sugar Inj SQ SCH ×4 (00:46→20:51)
[2018-05-21] MEDS: Midazolam 100 MG/100 ML Inj 100 MG/100 ML BAG IV.CONT PRN (01:51)
[2018-05-21] MEDS: fentaNYL 10 mcg/mL Premix Drip 2,500 MCG/250 ML BAG IV.SIG PRN ×3 (01:51→15:43)
[2018-05-21] MEDS: Artificial Tears Opth Drops 15 ML Bottle EACH EYE SCH ×3 (01:51→20:50)
[2018-05-21] MEDS: Oral Hygiene Kit OROPHARYNG SCH ×4 (01:51→20:50)
[2018-05-21 04:00] LABS: Baso # (Auto) 0.1 th/mm3 (0.0-0.2); Eos # (Auto) 0.1 th/mm3 (0.0-0.4); Eos % (Auto) 0.5 % (0.0-4.0); Hematocrit 32.5 % (39.0-51.0); Hemoglobin 10.6 gm/dL (13.0-17.0); Lymph # (Auto) 1.8 th/mm3 (1.0-4.8); Lymph % (Auto) 13.5 % (9.0-44.0); Mean Corpuscular HGB Conc 32.5 % (32.0-36.0); Mean Corpuscular Hemoglobin 29.3 pg (27.0-34.0); Mean Corpuscular Volume 90.2 fL (80.0-100.0); Mean Platelet Volume 8.5 fL (7.0-11.0); Mono # (Auto) 0.7 th/mm3 (0.0-0.9); Mono % (Auto) 5.5 % (0.0-8.0); Neut # (Auto) 10.6 th/mm3 (1.8-7.7); Neut % (Auto) 79.5 % (16.0-70.0); Platelet Count 212 th/mm3 (150-450); Red Blood Count 3.61 mil/mm3 (4.50-5.90); Red Cell Distribution Width 15.3 % (11.6-17.2); White Blood Count 13.4 th/mm3 (4.0-11.0)
[2018-05-21 04:18] LABS: Alanine Aminotransferase 91 U/L (9-52); Albumin 2.5 g/dL (3.4-5.0); Anion Gap 9 meq/L (5-15); Aspartate Aminotransferase 13 U/L (15-39); Blood Urea Nitrogen 19 mg/dL (7-18); Calcium 8.3 mg/dL (8.5-10.1); Chloride 107 meq/L (98-107); Glomerular Filtration Rate Greater Than 89 mL/min (>89); Glucose,Random 132 mg/dL (74-106); Magnesium 2.1 mg/dL (1.5-2.5); Potassium 3.6 meq/L (3.5-5.1); Sodium 141 meq/L (136-145)
[2018-05-21 04:21] LABS: Alkaline Phosphatase 62 U/L (45-117); Total Protein 6.7 g/dL (6.4-8.2)
[2018-05-21 04:58] LABS: Platelet Estimate Normal (Normal); Platelet Morphology Normal (Normal); RBC Morphology Normal (Normal)
[2018-05-21] MEDS: Dexmedetomidine Inj 1,000 MCG in Sodium Chlor 0.9% Inj 240 ML IV.CONT PRN ×3 (06:32→20:44)
[2018-05-21] MEDS: Senna/Docusate Sodium 8.6/50 MG Tablet PO SCH ×2 (08:24→21:10)
[2018-05-21] MEDS: Metoprolol Tartrate 50 MG Tablet PO SCH ×3 (08:24→17:27)
[2018-05-21] MEDS: Polyethylene Glycol 3350 17 GM Packet PO SCH ×2 (08:24→21:10)
[2018-05-21] MEDS: Pantoprazole Inj 40 MG Vial IV.PUSH SCH (08:25)
[2018-05-21] MEDS: Collagenase Oint 30 GM Tube TOPICAL SCH (08:27)
[2018-05-21] MEDS: Heparin Central Flush 100 UNIT/ML 5 ML Vial IV.FLUSH SCH (08:27)
[2018-05-21] MEDS: MethylPREDNISolone Sod Succinate Inj 40 MG/ML Vial IV.PUSH SCH ×2 (08:29→21:09)
[2018-05-21] MEDS: Cathflo Activase Inj 2 MG Vial I-CATHETER PRN ×2 (08:41→13:05)
--- NOTE | 2018-05-21 09:15 | P.PNCC ---
Subjective Subjective Remarks/Hospital Course: Patient is approximately 22 years old male obese, was found on the floor by a family member, downtime is unknown. EMS was called, patient was given Narcan with no response, he was intubated on the scene, apparently GCS 3. Found bag of PCP next to the patient. Patient has history of psychiatric disorder ? bipolar disorder and I am told he has attempted suicide in the past. There is also mention about suspicion of ethylene glycol ingestion, but his serum osmolality is 307 his osmolar gap is only 13. Bicarb is 26, ethylene glycol seems unlikely. Ethanol was negative urine drug screen only positive for benzo. I evaluated the patient in the ICU at the [facility]. Patient had a CT of the head which was negative. Rest of the workup unremarkable except for bibasilar atelectasis/aspiration pneumonia. Patient's white count is elevated at 17.1, glucose is 232 lactic acid was 2.8. He received multiple fluid boluses. At this time he is not on any sedation but remains unresponsive no response to deep pain 04/28 Patient remains intubated off sedation unresponsive. Afebrile. 04/29: MRI of the brain revealed no acute intracranial findings. EEG to be performed tomorrow. More arousable and moves all 4 extremities but not following commands. Placed on dexamethasone E drip. 2 feeds will be restarted 04/30: T-max 101.4. Currently afebrile. No bowel movement since admission. Arousable and follows simple commands late last night but currently on sedation for agitation. Increased FiO2 noted. Will attempt to gently diurese and continue antibiotics for pansensitive staph aureus/group a beta strep sputum 05/01 Patient is sedated with Fentanyl, Diprivan and intubated. T:101.1 at 5am. Placed on APRV overnight. 05/02 Patient is sedated with Diprivan and Fentanyl drips. Tmax 101.3, on PC/AC with PEEP:12, FIO2 80%, IP:30 05/03 Patient is heavily sedated with Diprivan, Fentanyl and Versed . On PC/AC with PEEP: 14 and FIO2 100$ sats 92%, CXR yesterday showed diffuse b/l pulm infiltrates, started on Flolan nebs. Had Tmax 102.6 last night. 05/04 Patient was placed on rotoprone bed yesterday sedated with Diprivan, Versed and Fentanyl infusion and on neuromuscular blockade( Nimbex) On PC/AC His FIO2 requirements is better now on FIO2:50% from 100% with PEEP:14. T:102.6 05/05 Patient remains intubated and sedated on Bumex drip 0.5mg/hr, T:99.7 at 3am. On PC/AC with PEEP:1 and FIO2 60%- sats 95%. 05/06 Patient remains sedated and intubated on rotoprone bed with improvements in his oxygenation. Now on PC/AC with PEEP:10, FIO2 40%. Afebrile. On Bumex drip 0.5mg/hr. 05/07 Patient remains on rotoprone bed sedated and on Nimbex drip. He is also on Bumex drip 0.5mg/hr with good urine output . 05/08 Patient remains sedated and intubated. On Flolan, and Bumex drip. Afebrile. 05/09 Patient desat overnight now on PC/AC with PEEP:10 and FIO2 100% sats 96%. Had T: 100.4 at midnight. Sputum cx 05/07 GNR. Remains sedated on Flolan and Bumex drip. 05/10: Resting in bed. Remains on PC/AC rate increased to 16. FiO2 80%. Low- grade fevers noted. Remains on epoprostenol and bumetanide drips. Hypertension noted. Aspirated this a.m. and so discontinued tube feeding. We will start PPN today. 05/11 Patient remains on rotoprone bed, sedated and intubated. Afebrile. On PC/ AC with PEEP;10 and FIO2 55%.On Flolan and Bumex drip 0.5mg/hr 05/12 Remains sedated, intubated and on Rotoprone bed. PC/AC with PEEP: 12 and FIO2 70% sats 96%. T:100.4 last night. On Flolan and Bumex drip. 05/14: Off rotaprone since yesterday, nimbex discontinued, PEEP 14 and FiO2 50% with sats in mid 90s. Still on flolan. 05/15: No acute issues overnight, plan is to wean PEEP slowly over the weekend for tracheostomy on Friday 05/18. 05/16: Flolan weaned yesterday, tolerated well, will continue to wean today. PEEP down to 10. O2 sats low to mid 90s. 05/17: TFs held overnight for high residuals; KUB showed Dobhoff tube in distal stomach with NGT in proximal stomach. Will hold for now, will need to be NPO at midnight for hopeful trach tomorrow. Continue PPN for now. 05/18: Patient had a desat event last night and had to have PEEP increased to 14. Pulse ox probe changed this morning and noted to be 100, now weaned back down to PEEP 10 and FiO2 60%. Will continue to wean FiO2. Flolan off since yesterday. Trach today or tomorrow. 05/19: Trach today. PEEP 8, FiO2 40%. No overnight events. 05/20: Trach performed in OR yesterday afternoon, no immediate complications, sent for MRI C spine this morning by neurology to evaluate for myelopathy which showed no acute abnormalities. Sedation weaned, patient now awake and alert, follows commands, mouths words. 05/21: Currently remains intubated sedated. Requiring heavy sedation for vent synchrony. Currently on propofol fentanyl and Versed infusions. Still wakes up and weakly follows. We will lighten sedation attempt CPAP and possible T- piece 2-4 hours today Objective Vital Signs / I&O: Vital Signs 05/20/18 09:25 05/20/18 10:00 05/20/18 10:13 Temperature Pulse Rate 0 L 0 L Respiratory Rate Blood Pressure Pulse Oximetry 93 L 05/20/18 10:21 05/20/18 10:30 05/20/18 10:40 Temperature Pulse Rate 0 L Respiratory Rate Blood Pressure 108/58 L 107/54 L 116/54 L Pulse Oximetry 84 L 05/20/18 11:00 05/20/18 11:01 05/20/18 12:00 Temperature Pulse Rate 80 81 79 Respiratory Rate Blood Pressure 128/58 L Pulse Oximetry 90 L 90 L 94 L 05/20/18 12:01 05/20/18 12:25 05/20/18 13:00 Temperature Pulse Rate 79 79 Respiratory Rate 19 Blood Pressure 118/58 L 117/58 L Pulse Oximetry 95 96 99 05/20/18 14:00 05/20/18 15:00 05/20/18 15:01 Temperature 98.8 F Pulse Rate 87 84 86 Respiratory Rate Blood Pressure 127/76 122/67 Pulse Oximetry 97 98 98 05/20/18 16:00 05/20/18 16:01 05/20/18 16:46 Temperature Pulse Rate 85 87 Respiratory Rate 30 H Blood Pressure 121/53 L Pulse Oximetry 97 97 98 05/20/18 17:00 05/20/18 19:00 05/20/18 20:00 Temperature 98.4 F Pulse Rate 86 91 H 82 Respiratory Rate Blood Pressure 126/76 133/93 H 125/59 L Pulse Oximetry 98 92 L 92 L 05/20/18 21:00 05/20/18 22:00 05/20/18 22:07 Temperature Pulse Rate 70 71 Respiratory Rate 15 Blood Pressure 124/64 123/63 Pulse Oximetry 94 L 95 95 05/20/18 23:00 05/21/18 00:00 05/21/18 01:00 Temperature 97.9 F Pulse Rate 71 66 74 Respiratory Rate Blood Pressure 123/62 110/57 L 116/66 Pulse Oximetry 94 L 95 93 L 05/21/18 01:53 05/21/18 02:00 05/21/18 03:00 Temperature Pulse Rate 69 67 Respiratory Rate 15 Blood Pressure 119/70 122/68 Pulse Oximetry 100 96 96 05/21/18 04:00 05/21/18 05:00 05/21/18 05:28 Temperature Pulse Rate 65 67 Respiratory Rate 14 Blood Pressure 118/63 118/63 Pulse Oximetry 97 97 98 05/21/18 08:34 Temperature Pulse Rate Respiratory Rate 29 H Blood Pressure Pulse Oximetry 97 Intake & Output 05/20/18 05/21/18 05/21/18 18:59 06:59 18:59 Intake Total 2396 / 2396 2170 / 2170 250 / 250 Output Total 1100 / 1100 1300 / 1300 Balance 1296 / 1296 870 / 870 250 / 250 Weight 153 kg Intake: IV 2390 / 2390 1969 / 1969 250 / 250 Precedex Inj 1,000 MCG In NS 500 / 500 500 / 500 Inj 240 ML @ 0.2 MCG/KG/HR 8.4 mls/hr IV.CONT TITRATE PRN Rx#: [id number] Versed Inj 100 mg In 100 ml @ 2 200 / 200 100 / 100 MG/HR 2 mls/hr IV.CONT TITRATE PRN Rx#:[id number] Diprivan 1000 mg/100 ml Inj 1, 100 / 100 500 / 500 000 mg In 100 ml @ 5 MCG/KG/MIN 4.77 mls/hr IV.CONT TITRATE PRN Rx#:[id number] Merrem Inj 1,000 MG In NS Inj 200 / 200 100 / 100 100 ML @ 200 mls/hr IV.SIG Q8H [facility] Rx#:[id number] Mycamine Inj 150 MG In NS Inj 100 / 100 100 ML @ 100 mls/hr IV.SIG Q24H [facility] Rx#:[id number] Vancomycin Inj 2,000 MG In NS 1040 / 1040 520 / 520 Inj 500 ML @ 250 mls/hr IV.SIG Q8H [facility] Rx#:[id number] fentaNYL 10 mcg/mL Premix Drip 250 / 250 250 / 250 250 / 250 2,500 mcg In 250 ml @ 50 MCG/HR 5 mls/hr IV.SIG TITRATE PRN Rx #:[id number] Oral 0 / 0 Tube Feeding 6 / 6 200 / 200 Output: Urine 600 / 600 1200 / 1200 Stool 500 / 500 100 / 100 Other: # Voids 5 Date of Last Bowel Movement 05/20/18 05/21/18 Result Diagrams: 05/21/18 03:40 05/21/18 03:40 Objective Remarks: GENERAL: Lying in bed heavily sedated SKIN: Warm and dry HEAD: NCAT NECK: Supple, tracheostomy present, clean and dry CARDIOVASCULAR: Regular rate and rhythm in 80s RESPIRATORY: Improved breath sounds bilaterally GASTROINTESTINAL: Abdomen obese, soft, non-tender in all quadrants MUSCULOSKELETAL: Trace peripheral edema, improving Neuro: Debated heavily sedated however moved follows commands very weakly x4 Assessment and Plan - Assessment and Plan Plan: NEURO/PSYCH: Acute metabolic encephalopathy Suspected PCP overdose Suspected ethylene glycol overdose Suicide attempt Critical illness myopathy -Currently requiring heavy sedation for vent synchrony with propofol and fentanyl Versed and Precedex -Start p.o. Ativan and clonidine to facilitate sedation weaning -Delirium precautions * Lights on/ shades up during the day, limit night time disruptions, frequent reorientation, patient's parents brought his glasses in from home and he should be provided with these whenever awake -Psychiatric consult after neurological recovery, previously on Wellbutrin. -CT of the head negative. MRI of brain negative. MRI C spine negative. -EEG 05/18, 04/30, 04/28 with no epileptic activity RESP: Acute hypoxemic respiratory failure-resolving Severe ARDS s/p Prone therapy Bibasilar aspiration pneumonitis Tobacco abuse -Continue with vent support keep sats >92% -s/p tracheostomy, POD #2 -Tolerated pressure support trial 05/20, continue daily. Attempt 2-4 hours T- piece today -Ventilator bundle. Bronchodilators (ipratropium/albuterol, Q4), Solumedrol 40mg [id number] to 20 q12 05/21/2018 s/p bronch 05/02 thick secretions suctioned to clear. No evidence of EBL or bleeding. -Nicotine patch CV: Essential hypertension -Monitor HR and BP keep MAP>65mmHg -On Lopressor 50mg TID -Echo 04/28: EF 60-65%, PASP 36mmHg GI: Elevated ALT Hypoalbuminemia - IV famotidine. -Docusate serum/senna 1 tablet twice daily for bowel regimen. Lactulose 30 cc twice daily and MiraLAX 17 g twice daily. Renal/FEN/: -Monitor renal function, I/O's, electrolytes replacement as needed -Trickle TFs, advance as tolerated. Increase tube feeding rate to 40 cc/h -d/c PPN when tolerating TFs at 40 cc per hour -Continue BID bumex, urine output continues to be excellent but patient receives a large volume of meds/ PPN per day. ID: MSSA/group A beta strep pneumonia Superadded Enterobacter/Klebsiella ammonia Abx per ID- continue merrem, micafungin, vanco 05/07 Sputm cx: andrews-sensitive Kleb pneumonia, Enterobacter. Repeat cultures from 05/13 have no growth at 5 days, another set of cultures sent 05/18 and pending 04/27 Sputum: Staph aureus/MSSA and beta strep not group A. 05/03 BC: Coag neg staph 05/02 bronch cx: Staph Aureus HEME: Normocytic anemia Leukocytosis-- resolved -Anemia of chronic illness, stable ENDO/FEN: Hyperglycemia -Electrolyte replacement per protocol -Sliding scale insulin -Continue solumedrol q12 MSK: Myopathy of critical illness, severe deconditioning PT/ OT evals appreciated, multipodus boot ordered, patient may benefit from wrist splints/ passive ROM exercises, now awake and alert and can benefit from communicative aids PROPH: GI prophylaxis- On Pepcid DVT prophylaxis- Lovenox 40mg SQ BID Doppler US LE: thrombosis of the posterior tibial vein within the calf bilaterally. Repeat duplex on 05/18 shows persistent LLE below the knee DVT which has not propagated proximally. No RLE DVT seen. Case management consulted to help with discharge planning. Patient will need aggressive PT/ OT and will likely need prolonged wean from ventilator given extent of physical deconditioning. LINES: -PICC placed on 05/08/18 OVERALL: Patient significantly improved over the past week. Would like to get him OOB to chair tomorrow, start aggressively weaning vent, advance TFs, dispo planning. Level 2 follow up To help prompt me to consider important information that might be impacting today's encounter and assessment, information from prior notes written by myself or my colleagues may have been "brought forward" into today's note. My signature on this note, however, is an attestation that I personally performed the exam, history, and/or decision-making noted today, and, unless otherwise indicated, the interactions with patient, family, and staff as well as the review of records all occurred today. I also attest that the listed assessment and stated plan reflect my best clinical judgment today based on the combination of historical information, prior notes, and today's exam/ interactions.
[2018-05-21] MEDS: Chlorhexidine 0.12% Oral Kit 15 ML UDC OROPHARYNG SCH ×2 (12:26→20:53)
[2018-05-21] MEDS: LORazepam 0.5 MG Tablet PO SCH ×3 (12:28→23:48)
[2018-05-21] MEDS: [UNRECOGNIZED DRUG - OTHER] IV.SIG SCH (14:05)
[2018-05-21] MEDS: FOLIC ACID IV.SIG SCH (14:05)
[2018-05-21] MEDS: MULTIVITAMIN IV.SIG SCH (14:05)
[2018-05-21] MEDS: Heparin Central Flush 100 UNIT/ML 5 ML Vial IV.FLUSH PRN ×2 (15:57→17:34)
[2018-05-22] MEDS: Insulin NovoLOG Aspart Correctional Sugar Inj SQ SCH ×5 (00:18→23:51)
[2018-05-22] MEDS: Dexmedetomidine Inj 1,000 MCG in Sodium Chlor 0.9% Inj 240 ML IV.CONT PRN ×8 (00:19→23:40)
[2018-05-22] MEDS: Oral Hygiene Kit OROPHARYNG SCH ×5 (00:20→23:51)
[2018-05-22] MEDS: Artificial Tears Opth Drops 15 ML Bottle EACH EYE SCH ×4 (00:20→23:51)
[2018-05-22] MEDS: fentaNYL 10 mcg/mL Premix Drip 2,500 MCG/250 ML BAG IV.SIG PRN ×4 (00:53→18:26)
[2018-05-22] MEDS: Propofol 1000 mg/100 ml Inj 1,000 MG/100 ML BOTTLE IV.CONT PRN ×9 (01:38→23:40)
[2018-05-22] MEDS: LORazepam 0.5 MG Tablet PO SCH ×5 (05:11→23:40)
[2018-05-22 05:27] LABS: Baso % (Auto) 0.4 % (0.0-2.0); Eos # (Auto) 0.1 th/mm3 (0.0-0.4); Eos % (Auto) 1.4 % (0.0-4.0); Hematocrit 28.4 % (39.0-51.0); Hemoglobin 9.8 gm/dL (13.0-17.0); Lymph # (Auto) 0.9 th/mm3 (1.0-4.8); Lymph % (Auto) 9.5 % (9.0-44.0); Mean Corpuscular HGB Conc 34.7 % (32.0-36.0); Mean Corpuscular Hemoglobin 31.4 pg (27.0-34.0); Mean Corpuscular Volume 90.6 fL (80.0-100.0); Mean Platelet Volume 9.4 fL (7.0-11.0); Mono # (Auto) 0.4 th/mm3 (0.0-0.9); Mono % (Auto) 3.8 % (0.0-8.0); Neut # (Auto) 7.8 th/mm3 (1.8-7.7); Neut % (Auto) 84.9 % (16.0-70.0); Platelet Count 177 th/mm3 (150-450); Red Blood Count 3.13 mil/mm3 (4.50-5.90); Red Cell Distribution Width 15.3 % (11.6-17.2); White Blood Count 9.2 th/mm3 (4.0-11.0)
[2018-05-22 06:48] LABS: Anion Gap 8 meq/L (5-15); Blood Urea Nitrogen 16 mg/dL (7-18); Chloride 108 meq/L (98-107); Glomerular Filtration Rate Greater Than 89 mL/min (>89); Sodium 138 meq/L (136-145)
[2018-05-22 06:49] LABS: Alanine Aminotransferase 84 U/L (9-52); Aspartate Aminotransferase 20 U/L (15-39); Calcium 6.8 mg/dL (8.5-10.1); Glucose,Random 110 mg/dL (74-106); Magnesium 1.8 mg/dL (1.5-2.5); Total Protein 5.2 g/dL (6.4-8.2)
[2018-05-22 06:50] LABS: Alkaline Phosphatase 54 U/L (45-117)
[2018-05-22] MEDS: Senna/Docusate Sodium 8.6/50 MG Tablet PO SCH ×2 (07:59→22:26)
[2018-05-22] MEDS: Metoprolol Tartrate 50 MG Tablet PO SCH ×3 (07:59→17:59)
[2018-05-22] MEDS: MethylPREDNISolone Sod Succinate Inj 40 MG/ML Vial IV.PUSH SCH ×2 (08:00→20:55)
[2018-05-22] MEDS: Polyethylene Glycol 3350 17 GM Packet PO SCH ×2 (08:00→22:26)
[2018-05-22] MEDS: Heparin Central Flush 100 UNIT/ML 5 ML Vial IV.FLUSH SCH (08:01)
[2018-05-22] MEDS: Collagenase Oint 30 GM Tube TOPICAL SCH (08:01)
[2018-05-22] MEDS: Cathflo Activase Inj 2 MG Vial I-CATHETER PRN ×3 (08:02→17:48)
[2018-05-22] MEDS: Potassium Chlor 20 mEq Premix 20 MEQ/100 ML PIGGYBACK IV.SIG PRN ×4 (08:03→14:18)
[2018-05-22] MEDS: Chlorhexidine 0.12% Oral Kit 15 ML UDC OROPHARYNG SCH ×2 (09:08→20:54)
[2018-05-22] MEDS: Pantoprazole Inj 40 MG Vial IV.PUSH SCH (09:10)
[2018-05-22] MEDS ORDERED: buPROPion 75 MG Tablet NG/OG SCH (11:00)
--- NOTE | 2018-05-22 12:01 | P.PNCC ---
Subjective Subjective Remarks/Hospital Course: Patient is approximately 22 years old male obese, was found on the floor by a family member, downtime is unknown. EMS was called, patient was given Narcan with no response, he was intubated on the scene, apparently GCS 3. Found bag of PCP next to the patient. Patient has history of psychiatric disorder ? bipolar disorder and I am told he has attempted suicide in the past. There is also mention about suspicion of ethylene glycol ingestion, but his serum osmolality is 307 his osmolar gap is only 13. Bicarb is 26, ethylene glycol seems unlikely. Ethanol was negative urine drug screen only positive for benzo. I evaluated the patient in the ICU at the [facility]. Patient had a CT of the head which was negative. Rest of the workup unremarkable except for bibasilar atelectasis/aspiration pneumonia. Patient's white count is elevated at 17.1, glucose is 232 lactic acid was 2.8. He received multiple fluid boluses. At this time he is not on any sedation but remains unresponsive no response to deep pain 04/28 Patient remains intubated off sedation unresponsive. Afebrile. 04/29: MRI of the brain revealed no acute intracranial findings. EEG to be performed tomorrow. More arousable and moves all 4 extremities but not following commands. Placed on dexamethasone E drip. 2 feeds will be restarted 04/30: T-max 101.4. Currently afebrile. No bowel movement since admission. Arousable and follows simple commands late last night but currently on sedation for agitation. Increased FiO2 noted. Will attempt to gently diurese and continue antibiotics for pansensitive staph aureus/group a beta strep sputum 05/01 Patient is sedated with Fentanyl, Diprivan and intubated. T:101.1 at 5am. Placed on APRV overnight. 05/02 Patient is sedated with Diprivan and Fentanyl drips. Tmax 101.3, on PC/AC with PEEP:12, FIO2 80%, IP:30 05/03 Patient is heavily sedated with Diprivan, Fentanyl and Versed . On PC/AC with PEEP: 14 and FIO2 100$ sats 92%, CXR yesterday showed diffuse b/l pulm infiltrates, started on Flolan nebs. Had Tmax 102.6 last night. 05/04 Patient was placed on rotoprone bed yesterday sedated with Diprivan, Versed and Fentanyl infusion and on neuromuscular blockade( Nimbex) On PC/AC His FIO2 requirements is better now on FIO2:50% from 100% with PEEP:14. T:102.6 05/05 Patient remains intubated and sedated on Bumex drip 0.5mg/hr, T:99.7 at 3am. On PC/AC with PEEP:1 and FIO2 60%- sats 95%. 05/06 Patient remains sedated and intubated on rotoprone bed with improvements in his oxygenation. Now on PC/AC with PEEP:10, FIO2 40%. Afebrile. On Bumex drip 0.5mg/hr. 05/07 Patient remains on rotoprone bed sedated and on Nimbex drip. He is also on Bumex drip 0.5mg/hr with good urine output . 05/08 Patient remains sedated and intubated. On Flolan, and Bumex drip. Afebrile. 05/09 Patient desat overnight now on PC/AC with PEEP:10 and FIO2 100% sats 96%. Had T: 100.4 at midnight. Sputum cx 05/07 GNR. Remains sedated on Flolan and Bumex drip. 05/10: Resting in bed. Remains on PC/AC rate increased to 16. FiO2 80%. Low- grade fevers noted. Remains on epoprostenol and bumetanide drips. Hypertension noted. Aspirated this a.m. and so discontinued tube feeding. We will start PPN today. 05/11 Patient remains on rotoprone bed, sedated and intubated. Afebrile. On PC/ AC with PEEP;10 and FIO2 55%.On Flolan and Bumex drip 0.5mg/hr 05/12 Remains sedated, intubated and on Rotoprone bed. PC/AC with PEEP: 12 and FIO2 70% sats 96%. T:100.4 last night. On Flolan and Bumex drip. 05/14: Off rotaprone since yesterday, nimbex discontinued, PEEP 14 and FiO2 50% with sats in mid 90s. Still on flolan. 05/15: No acute issues overnight, plan is to wean PEEP slowly over the weekend for tracheostomy on Friday 05/18. 05/16: Flolan weaned yesterday, tolerated well, will continue to wean today. PEEP down to 10. O2 sats low to mid 90s. 05/17: TFs held overnight for high residuals; KUB showed Dobhoff tube in distal stomach with NGT in proximal stomach. Will hold for now, will need to be NPO at midnight for hopeful trach tomorrow. Continue PPN for now. 05/18: Patient had a desat event last night and had to have PEEP increased to 14. Pulse ox probe changed this morning and noted to be 100, now weaned back down to PEEP 10 and FiO2 60%. Will continue to wean FiO2. Flolan off since yesterday. Trach today or tomorrow. 05/19: Trach today. PEEP 8, FiO2 40%. No overnight events. 05/20: Trach performed in OR yesterday afternoon, no immediate complications, sent for MRI C spine this morning by neurology to evaluate for myelopathy which showed no acute abnormalities. Sedation weaned, patient now awake and alert, follows commands, mouths words. 05/21: Currently remains intubated sedated. Requiring heavy sedation for vent synchrony. Currently on propofol fentanyl and Versed infusions. Still wakes up and weakly follows. We will lighten sedation attempt CPAP and possible T- piece 2-4 hours today 05/22: Currently wide awake on the vent despite continuous sedation. Mother requests restarting Wellbutrin which I have ordered. Did not tolerate T-piece yesterday. Attempt again today Objective Vital Signs / I&O: Vital Signs 05/21/18 12:00 05/21/18 16:00 05/21/18 16:27 Temperature 98.3 F 98.4 F Pulse Rate 79 84 Respiratory Rate 20 40 H Blood Pressure 121/58 L 117/57 L Pulse Oximetry 97 89 L 94 L 05/21/18 17:14 05/21/18 20:00 05/21/18 20:01 Temperature Pulse Rate 79 82 Respiratory Rate 23 Blood Pressure 132/71 Pulse Oximetry 94 L 100 100 05/21/18 21:00 05/21/18 21:01 05/21/18 21:35 Temperature Pulse Rate 80 70 Respiratory Rate 21 Blood Pressure 133/67 Pulse Oximetry 98 98 97 05/21/18 22:00 05/21/18 22:01 05/21/18 22:27 Temperature Pulse Rate 81 81 65 Respiratory Rate 24 Blood Pressure 124/61 Pulse Oximetry 96 96 05/21/18 23:00 05/21/18 23:01 05/22/18 00:00 Temperature Pulse Rate 84 86 75 Respiratory Rate Blood Pressure 127/81 Pulse Oximetry 95 96 05/22/18 00:01 05/22/18 01:00 05/22/18 01:01 Temperature Pulse Rate 93 H 56 L 58 L Respiratory Rate Blood Pressure 132/68 167/85 H Pulse Oximetry 98 98 05/22/18 01:07 05/22/18 02:00 05/22/18 02:01 Temperature Pulse Rate 80 78 Respiratory Rate 20 Blood Pressure 132/60 Pulse Oximetry 99 90 L 92 L 05/22/18 03:00 05/22/18 03:01 05/22/18 04:00 Temperature Pulse Rate 78 93 H 112 H Respiratory Rate Blood Pressure 144/88 H Pulse Oximetry 98 97 92 L 05/22/18 04:41 05/22/18 05:00 05/22/18 05:01 Temperature Pulse Rate 81 80 Respiratory Rate 20 Blood Pressure 123/64 Pulse Oximetry 98 98 99 05/22/18 08:00 05/22/18 08:52 Temperature 98.4 F Pulse Rate 80 Respiratory Rate 30 H 20 Blood Pressure 166/72 H Pulse Oximetry 100 100 Intake & Output 05/21/18 05/22/18 05/22/18 18:59 06:59 18:59 Intake Total 1963 / 1966 2343.3 / 2343.3 752.3 / 752.3 Output Total 2150 / 2150 805 / 805 Balance -184 / -184 1538.3 / 1538.3 752.3 / 752.3 Weight 152 kg Intake: IV 1400 / 1400 1602.3 / 1602.3 752.3 / 752.3 Precedex Inj 1,000 MCG In NS 500 / 500 702.3 / 702.3 452.3 / 452.3 Inj 240 ML @ 0.2 MCG/KG/HR 8.4 mls/hr IV.CONT TITRATE PRN Rx#: [id number] Diprivan 1000 mg/100 ml Inj 1, 300 / 300 300 / 300 200 / 200 000 mg In 100 ml @ 5 MCG/KG/MIN 4.77 mls/hr IV.CONT TITRATE PRN Rx#:[id number] Merrem Inj 1,000 MG In NS Inj 100 / 100 100 / 100 100 ML @ 200 mls/hr IV.SIG Q8H DARRION Rx#:[id number] KCl 20 mEq Premix Inj 20 meq In 100 / 100 100 ml @ 50 mls/hr IV.SIG Q2H PRN Rx#:[id number] fentaNYL 10 mcg/mL Premix Drip 500 / 500 500 / 500 2,500 mcg In 250 ml @ 50 MCG/HR 5 mls/hr IV.SIG TITRATE PRN Rx #:[id number] Tube Feeding 566 / 566 391 / 391 Tube Irrigant 100 / 100 Water Bolus Amount 250 / 250 Output: Urine 1999 / 1999 400 / 400 Stool 150 / 150 400 / 400 Estimated Blood Loss 5 / 5 Other: # Voids 2 # Incontinent Voids 2 Date of Last Bowel Movement 05/22/18 05/22/18 Result Diagrams: 05/22/18 05:00 05/22/18 05:00 Objective Remarks: GENERAL: Lying in bed sedated but wide awake following commands. SKIN: Warm and dry HEAD: NCAT NECK: Supple, tracheostomy present, clean and dry CARDIOVASCULAR: Regular rate and rhythm in 80s RESPIRATORY: Improved breath sounds bilaterally GASTROINTESTINAL: Abdomen obese, soft, non-tender in all quadrants MUSCULOSKELETAL: Trace peripheral edema, improving Neuro: Ventilated via tracheostomy, sedated but wide awake follows commands 4 out of 5 power in all extremities Assessment and Plan - Assessment and Plan Plan: NEURO/PSYCH: Acute metabolic encephalopathy Suspected PCP overdose Suspected ethylene glycol overdose Suicide attempt Critical illness myopathy Depression -Currently requiring heavy sedation for vent synchrony with propofol and fentanyl Versed and Precedex. Discontinue Versed infusion -Continue p.o. Ativan and clonidine to facilitate sedation weaning -Delirium precautions * Lights on/ shades up during the day, limit night time disruptions, frequent reorientation, patient's parents brought his glasses in from home and he should be provided with these whenever awake -Psychiatric consult after neurological recovery, previously on Wellbutrin. -CT of the head negative. MRI of brain negative. MRI C spine negative. -EEG 05/18, 04/30, 04/28 with no epileptic activity RESP: Acute hypoxemic respiratory failure-resolving Severe ARDS s/p Prone therapy Bibasilar aspiration pneumonitis Tobacco abuse -Continue with vent support keep sats >92% -s/p tracheostomy, POD #3 -Tolerated pressure support trial 05/20, continue daily. Attempt 2-4 hours T- piece today -Ventilator bundle. Bronchodilators (ipratropium/albuterol, Q4), Solumedrol 40mg [id number] to 20 q12 05/21/2018 s/p bronch / thick secretions suctioned to clear. No evidence of EBL or bleeding. -Nicotine patch CV: Essential hypertension -Monitor HR and BP keep MAP>65mmHg -On Lopressor 50mg TID -Echo 04/28: EF 60-65%, PASP 36mmHg GI: Elevated ALT Hypoalbuminemia - IV famotidine. -Docusate serum/senna 1 tablet twice daily for bowel regimen. Lactulose 30 cc twice daily and MiraLAX 17 g twice daily. Renal/FEN/: -Monitor renal function, I/O's, electrolytes replacement as needed -Trickle TFs, advance as tolerated. Increase tube feeding rate to 40 cc/h -d/c PPN when tolerating TFs at 40 cc per hour -Continue BID bumex, urine output continues to be excellent but patient receives a large volume of meds/ PPN per day. TPN was discontinued 05/21/2018 ID: MSSA/group A beta strep pneumonia Superadded Enterobacter/Klebsiella pneumonia ESBL Abx per ID- continue merrem, micafungin, vanco 05/07 Sputm cx: Kleb pneumonia, Enterobacter. Repeat cultures from 05/13 have no growth at 5 days, another set of cultures sent 05/18 and pending 04/27 Sputum: Staph aureus/MSSA and beta strep not group A. 05/03 BC: Coag neg staph 05/02 bronch cx: Staph Aureus HEME: Normocytic anemia Leukocytosis-- resolved -Anemia of chronic illness, stable ENDO/FEN: Hyperglycemia -Electrolyte replacement per protocol -Sliding scale insulin -Continue solumedrol q12 MSK: Myopathy of critical illness, severe deconditioning PT/ OT evals appreciated, multipodus boot ordered, patient may benefit from wrist splints/ passive ROM exercises, now awake and alert and can benefit from communicative aids PROPH: GI prophylaxis- On Pepcid DVT prophylaxis- Lovenox 40mg SQ BID Doppler US LE: thrombosis of the posterior tibial vein within the calf bilaterally. Repeat duplex on 05/18 shows persistent LLE below the knee DVT which has not propagated proximally. No RLE DVT seen. Case management consulted to help with discharge planning. Patient will need aggressive PT/ OT and will likely need prolonged wean from ventilator given extent of physical deconditioning. LINES: -PICC placed on 05/08/18 OVERALL: Patient significantly improved over the past week. Would like to get him OOB to chair start aggressively weaning vent, advance TFs, dispo planning. Level 2 follow up To help prompt me to consider important information that might be impacting today's encounter and assessment, information from prior notes written by myself or my colleagues may have been "brought forward" into today's note. My signature on this note, however, is an attestation that I personally performed the exam, history, and/or decision-making noted today, and, unless otherwise indicated, the interactions with patient, family, and staff as well as the review of records all occurred today. I also attest that the listed assessment and stated plan reflect my best clinical judgment today based on the combination of historical information, prior notes, and today's exam/ interactions.
--- NOTE | 2018-05-22 14:34 | P.PNID ---
Subjective Remarks: Notes reviewed D/W RN Temps ok On CPAP this morning Did not [id number] T-piece yesterday WBC down to normal Awake and alert, responding S/P trach Sputum Serratia, Kleb ESBL, ?[facility] Antibiotics: meropenem Lines: PICC Past Medical History: reviewed. Allergies/Adverse Reactions: Allergies shellfish derived Allergy (Verified 04/29/18 13:12) Anaphylaxis No Known Allergies Allergy (Uncoded 04/29/18 13:12) Objective Vital Signs 05/21/18 16:00 05/21/18 16:27 05/21/18 17:14 Temperature 98.4 F Pulse Rate 84 Respiratory Rate 40 H 23 Blood Pressure 117/57 L Pulse Oximetry 89 L 94 L 94 L 05/21/18 20:00 05/21/18 20:01 05/21/18 21:00 Temperature Pulse Rate 79 82 80 Respiratory Rate Blood Pressure 132/71 Pulse Oximetry 100 100 98 05/21/18 21:01 05/21/18 21:35 05/21/18 22:00 Temperature Pulse Rate 70 81 Respiratory Rate 21 Blood Pressure 133/67 Pulse Oximetry 98 97 96 05/21/18 22:01 05/21/18 22:27 05/21/18 23:00 Temperature Pulse Rate 81 65 84 Respiratory Rate 24 Blood Pressure 124/61 Pulse Oximetry 96 95 05/21/18 23:01 05/22/18 00:00 05/22/18 00:01 Temperature Pulse Rate 86 75 93 H Respiratory Rate Blood Pressure 127/81 132/68 Pulse Oximetry 96 05/22/18 01:00 05/22/18 01:01 05/22/18 01:07 Temperature Pulse Rate 56 L 58 L Respiratory Rate 20 Blood Pressure 167/85 H Pulse Oximetry 98 98 99 05/22/18 02:00 05/22/18 02:01 05/22/18 03:00 Temperature Pulse Rate 80 78 78 Respiratory Rate Blood Pressure 132/60 Pulse Oximetry 90 L 92 L 98 05/22/18 03:01 05/22/18 04:00 05/22/18 04:41 Temperature Pulse Rate 93 H 112 H Respiratory Rate 20 Blood Pressure 144/88 H Pulse Oximetry 97 92 L 98 05/22/18 05:00 05/22/18 05:01 05/22/18 08:00 Temperature 98.4 F Pulse Rate 81 80 80 Respiratory Rate 30 H Blood Pressure 123/64 166/72 H Pulse Oximetry 98 99 100 05/22/18 08:52 Temperature Pulse Rate Respiratory Rate 20 Blood Pressure Pulse Oximetry 100 Intake & Output 05/21/18 05/22/18 05/22/18 18:59 06:59 18:59 Intake Total 1963 / 1965 2343.3 / 2343.3 1102.3 / 1102.3 Output Total 2150 / 2150 805 / 805 Balance -184 / -184 1538.3 / 1538.3 1102.3 / 1102.3 Weight 152 kg Intake: IV 1400 / 1400 1602.3 / 1602.3 1102.3 / 1102.3 Precedex Inj 1,000 MCG In NS 500 / 500 702.3 / 702.3 452.3 / 452.3 Inj 240 ML @ 0.2 MCG/KG/HR 8.4 mls/hr IV.CONT TITRATE PRN Rx#: [id number] Diprivan 1000 mg/100 ml Inj 1, 300 / 300 300 / 300 200 / 200 000 mg In 100 ml @ 5 MCG/KG/MIN 4.77 mls/hr IV.CONT TITRATE PRN Rx#:[id number] Merrem Inj 1,000 MG In NS Inj 100 / 100 100 / 100 100 ML @ 200 mls/hr IV.SIG Q8H DARRION Rx#:[id number] KCl 20 mEq Premix Inj 20 meq In 200 / 200 100 ml @ 50 mls/hr IV.SIG Q2H PRN Rx#:[id number] fentaNYL 10 mcg/mL Premix Drip 500 / 500 500 / 500 250 / 250 2,500 mcg In 250 ml @ 50 MCG/HR 5 mls/hr IV.SIG TITRATE PRN Rx #:[id number] Tube Feeding 566 / 566 391 / 391 Tube Irrigant 100 / 100 Water Bolus Amount 250 / 250 Output: Urine 1999 / 1999 400 / 400 Stool 150 / 150 400 / 400 Estimated Blood Loss 5 / 5 Other: # Voids 2 # Incontinent Voids 2 Date of Last Bowel Movement 05/22/18 05/22/18 05/18/18 11:45 Sputum - Endotracheal Gram Stain - Final 05/18/18 11:45 Sputum - Endotracheal Sputum Culture - Final Serratia marcescens Klebsiella pneumoniae ESBL pos 05/18/18 12:40 Blood - Peripheral Aerobic Blood Culture - Preliminary No growth in 4 days 05/18/18 12:40 Blood - Peripheral Anaerobic Blood Culture - Preliminary No growth in 4 days 05/18/18 12:35 Blood - Peripheral Aerobic Blood Culture - Preliminary No growth in 4 days 05/18/18 12:35 Blood - Peripheral Anaerobic Blood Culture - Preliminary No growth in 4 days 05/14/18 20:55 Blood - Peripheral Aerobic Blood Culture - Final No growth in 5 days 05/14/18 20:55 Blood - Peripheral Anaerobic Blood Culture - Final No growth in 5 days 05/14/18 20:46 Blood - Peripheral Aerobic Blood Culture - Final No growth in 5 days 05/14/18 20:46 Blood - Peripheral Anaerobic Blood Culture - Final No growth in 5 days Lab - Hematology Results 05/21/18 05/22/18 03:40 05:00 WBC 13.4 H 9.2 RBC 3.61 L 3.13 L Hgb 10.6 L 9.8 L Hct 32.5 L 28.4 L MCV 90.2 90.6 MCH 29.3 31.4 MCHC 32.5 34.7 RDW 15.3 15.3 Plt Count 212 177 MPV 8.5 9.4 Prelim Diff (Auto) Slide review pending Neut % (Auto) 79.5 H 84.9 H Lymph % (Auto) 13.5 9.5 [place] % (Auto) 5.5 3.8 Eos % (Auto) 0.5 1.4 Baso % (Auto) 1.0 0.4 Neut # (Auto) 10.6 H 7.8 H Lymph # (Auto) 1.8 0.9 L [place] # (Auto) 0.7 0.4 Eos # (Auto) 0.1 0.1 Baso # (Auto) 0.1 0.0 WBC Differential . . Diff Scan Auto diff confirmed Differential Comment . Auto diff final Platelet Estimate Normal Platelet Morphology Normal RBC Morphology Normal Lab - Chemistry Results 05/20/18 05/20/18 05/21/18 17:14 23:12 03:40 Sodium 141 Potassium 3.6 Chloride 107 Carbon Dioxide 25.0 Anion Gap 9 BUN 19 H Creatinine 0.39 L Estimated GFR Greater than 89 POC Glucose 106 157 H Random Glucose 132 H Calcium 8.3 L Prot Corrected Calcium Magnesium 2.1 Total Bilirubin 0.4 AST 13 L ALT 91 H Alkaline Phosphatase 62 Total Protein 6.7 Albumin 2.5 L 05/21/18 05/21/18 05/22/18 12:22 18:49 00:14 Sodium Potassium Chloride Carbon Dioxide Anion Gap BUN Creatinine Estimated GFR POC Glucose 144 H 121 H 143 H Random Glucose Calcium Prot Corrected Calcium Magnesium Total Bilirubin AST ALT Alkaline Phosphatase Total Protein Albumin 05/22/18 05/22/18 05:00 12:32 Sodium 138 Potassium 3.0 L Chloride 108 H Carbon Dioxide 22.0 Anion Gap 8 BUN 16 Creatinine 0.28 L Estimated GFR Greater than 89 POC Glucose 134 H Random Glucose 110 H Calcium 6.8 L* D Prot Corrected Calcium 7.8 L Magnesium 1.8 Total Bilirubin 0.7 AST 20 ALT 84 H Alkaline Phosphatase 54 Total Protein 5.2 L D Albumin 2.0 L Imaging: ITS Impressions Head CT 04/27/18 11:31 CONCLUSION: 1. Negative CT Head non contrast. . Abdomen/Pelvis CT 04/27/18 11:35 CONCLUSION: 1. Extensive atelectasis in both lower lobes. 2. The Stone catheter needs to be deflated and advanced into the bladder. The catheter is at the level of the prosthetic urethra. 3. No findings to indicate a bowel obstruction are seen. No free air free fluid is identified. Chest CT 04/27/18 11:35 CONCLUSION: 1. Consolidation both posterior lungs with air bronchograms. This could represent bilateral pneumonia or aspiration. Cervical Spine CT 04/27/18 11:36 CONCLUSION: 1. Negative trauma study. Lumbar Spine CT 04/27/18 11:59 CONCLUSION: 1. Negative for acute process 2. There is no evidence for vertebral compression. Head MRI 04/29/18 07:05 CONCLUSION: 1. Negative MRI of the brain. 2. Inflammatory process cannot be entirely excluded. 3. There are no infarcts identified. Abdomen X-Ray 05/17/18 00:00 CONCLUSION: No evidence of bowel obstruction. Dobbhoff tube is seen within the stomach and the proximal port of the nasogastric tube is within the proximal stomach. Venous Doppler Study 05/18/18 00:00 CONCLUSION: 1. Left lower extremity DVT involving the posterior tibial vein from the mid calf to the ankle. 2. No other evidence of DVT at or above the knee in either lower extremity. Chest X-Ray 05/18/18 00:26 CONCLUSION: No significant interval change. Persistent right greater than left pulmonary opacity. Cervical Spine MRI 05/20/18 10:29 CONCLUSION: 1. Straightening of the cervical spine. Otherwise, unremarkable exam. Physical Exam: GENERAL: Obese male, on the vent, awake, responding, NAD SKIN: Cool and dry. no rash. HEAD: Atraumatic. Normocephalic. EYES: Face mildly edematous. NO icterus, no injection ENT: moist mucosae NECK: Trach in place CARDIOVASCULAR: RRR, no murmurs RESPIRATORY: Coarse BS mikhail, decreased at bases GASTROINTESTINAL: soft abdomen, obese, not tender MUSCULOSKELETAL: Extremities without clubbing, cyanosis, resolution of edema. NEUROLOGICAL: awake, alert, communicates PSYCHIATRIC: calm : Stone in place ,urine clear LINE: NO evidence of infection Assessment and Plan - Plan Sepsis ongoing possible new. PNA, probably aspiration Acute VDRF on rotaprone bed. MSSA pneumonia. GNR pneumonia: Kleb, Enterobacter - now with different GNR in sputum Morbid obesity with likely obesity- hypoventilation sd Coag neg staph bacteremia, low grade doubt clin significance New fever Leukocytosis diarrhea, c.diff negative UA negative new fever - improved with new abx Rx Growing GNB in sputum Recs: Change meropenem to Avycaz Weaning per [facility] MOnitor progress D/W RN
[2018-05-22] MEDS: buPROPion 100 MG Tablet NG/OG SCH ×2 (14:35→20:55)
[2018-05-22] MEDS: Erythromycin Ethylsuccinate Susp 400 MG/5ML 100 ML Bottle NG/OG SCH ×2 (14:35→17:59)
--- NOTE | 2018-05-22 14:56 | P.DIET ---
Nutritional Evaluation Type of nutrition evaluation: follow-up Nutrition consult regarding: Tube Feeding, TPN/PPN Objective - Diagnosis suicidal attempt, aspiration pneumonia - Objective % IBW: 192 (IBW = 202lb) Body Weight Used for Calculations: IBW Energy Needs - Lower Range (kCal/kg): 11 Energy Needs - Upper Range (kCal/kg): 14 Lower Limit kCal/kg (kCals): 1,848 Upper Limit kCal/kg (kCals): 2,352 Lower Limit Protein Factor (Grams per Kg): 1.2 Upper Limit Protein Factor (Grams per Kg): 1.5 Lower Protein Needs (Protein): 110 Upper Protein Needs (Protein): 138 Fluid Factor (ml/kg): 30 Estimated Fluid Needs (ml): 2,754 Dietitian Reviewed in Medical Record: Curent medications, Intake & Output, Labs , Medical history, Tube feeding Diet Order: NPO, TPN Speech Therapy Recommendations: No Wound Care Note: midline lower back: laceration sacrum: pressure injury L shoulder: pressure injury Objective Comments: PMH: affective bipolar disorder Assessment Assessment: Pts PPN d/janina on 04/20. Pt currently TF'ing Jevity 1.5 @ 40mL/hr per MD. Continue to recommend Jevity 1.5 @ 60mL w/ Beneprotein 1 pkt TID to provide 2235 kcal, 110g of protein, and 1094mL of free water to best meet pts nutritional needs. Additional kcal (1.1kcal/mL) provided by propofol when running. Labs reviewed; elevated glucose noted. Will monitor for need of formula change. Recommendations: 1. Increase TF to Jevity 1.5 @ 60mL w/ Beneprotein 1 pkt TID when tolerated 2. Monitor glucose labs Dietitian to Monitor: Lab values, Intake & Output, Tube feeding tolerance, Weight change, Medical course
[2018-05-22] MEDS: Ceftazidime/Avibactam Inj 2.5 GM in Sodium Chlor 0.9% Inj 50 ML IV.SIG SCH (17:30)
[2018-05-22] MEDS: Potassium Bicarbonate 25 MEQ Effervescent Tablet NG/OG SCH (20:55)
[2018-05-23] MEDS: Ceftazidime/Avibactam Inj 2.5 GM in Sodium Chlor 0.9% Inj 50 ML IV.SIG SCH ×3 (01:20→17:32)
[2018-05-23] MEDS: fentaNYL 10 mcg/mL Premix Drip 2,500 MCG/250 ML BAG IV.SIG PRN ×4 (01:20→23:51)
[2018-05-23] MEDS: Dexmedetomidine Inj 1,000 MCG in Sodium Chlor 0.9% Inj 240 ML IV.CONT PRN ×7 (02:57→23:51)
[2018-05-23] MEDS: Propofol 1000 mg/100 ml Inj 1,000 MG/100 ML BOTTLE IV.CONT PRN ×10 (02:58→23:50)
[2018-05-23] MEDS: Oral Hygiene Kit OROPHARYNG SCH ×4 (03:39→23:01)
[2018-05-23 05:45] LABS: Baso % (Auto) 0.4 % (0.0-2.0); Eos % (Auto) 0.2 % (0.0-4.0); Hematocrit 34.9 % (39.0-51.0); Hemoglobin 11.4 gm/dL (13.0-17.0); Lymph # (Auto) 0.8 th/mm3 (1.0-4.8); Lymph % (Auto) 7.1 % (9.0-44.0); Mean Corpuscular HGB Conc 32.7 % (32.0-36.0); Mean Corpuscular Hemoglobin 29.7 pg (27.0-34.0); Mean Corpuscular Volume 90.6 fL (80.0-100.0); Mean Platelet Volume 8.2 fL (7.0-11.0); Mono # (Auto) 0.5 th/mm3 (0.0-0.9); Mono % (Auto) 4.5 % (0.0-8.0); Neut # (Auto) 10.5 th/mm3 (1.8-7.7); Neut % (Auto) 87.8 % (16.0-70.0); Platelet Count 231 th/mm3 (150-450); Red Blood Count 3.85 mil/mm3 (4.50-5.90); Red Cell Distribution Width 15.4 % (11.6-17.2); White Blood Count 11.9 th/mm3 (4.0-11.0)
[2018-05-23 05:49] LABS: Alanine Aminotransferase 133 U/L (9-52); Albumin 2.7 g/dL (3.4-5.0); Alkaline Phosphatase 73 U/L (45-117); Anion Gap 7 meq/L (5-15); Aspartate Aminotransferase 28 U/L (15-39); Blood Urea Nitrogen 15 mg/dL (7-18); Calcium 8.6 mg/dL (8.5-10.1); Carbon Dioxide 26.1 meq/L (21.0-32.0); Chloride 105 meq/L (98-107); Glomerular Filtration Rate Greater Than 89 mL/min (>89); Glucose,Random 131 mg/dL (74-106); Magnesium 2.2 mg/dL (1.5-2.5); Potassium 4.4 meq/L (3.5-5.1); Sodium 138 meq/L (136-145); Total Protein 6.9 g/dL (6.4-8.2)
[2018-05-23] MEDS: LORazepam 0.5 MG Tablet PO SCH ×4 (05:57→23:01)
[2018-05-23] MEDS: Insulin NovoLOG Aspart Correctional Sugar Inj SQ SCH ×3 (05:58→17:32)
[2018-05-23] MEDS: Polyethylene Glycol 3350 17 GM Packet PO SCH ×2 (08:01→20:44)
[2018-05-23] MEDS: Artificial Tears Opth Drops 15 ML Bottle EACH EYE SCH ×3 (08:08→23:02)
[2018-05-23] MEDS: Erythromycin Ethylsuccinate Susp 400 MG/5ML 100 ML Bottle NG/OG SCH ×3 (08:09→17:32)
[2018-05-23] MEDS: buPROPion 100 MG Tablet NG/OG SCH (08:10)
[2018-05-23] MEDS: Heparin Central Flush 100 UNIT/ML 5 ML Vial IV.FLUSH SCH (08:10)
[2018-05-23] MEDS: Senna/Docusate Sodium 8.6/50 MG Tablet PO SCH ×2 (08:10→20:44)
[2018-05-23] MEDS: Potassium Bicarbonate 25 MEQ Effervescent Tablet NG/OG SCH ×2 (08:10→21:55)
[2018-05-23] MEDS: Metoprolol Tartrate 50 MG Tablet PO SCH ×3 (08:10→17:31)
[2018-05-23] MEDS: Collagenase Oint 30 GM Tube TOPICAL SCH (08:11)
[2018-05-23] MEDS: Pantoprazole Inj 40 MG Vial IV.PUSH SCH (08:11)
[2018-05-23] MEDS: MethylPREDNISolone Sod Succinate Inj 40 MG/ML Vial IV.PUSH SCH ×2 (08:11→20:44)
--- NOTE | 2018-05-23 08:18 | XR ---
EXAM DATE: 05/23/2018 8:06 AM EST AGE/SEX: 22 years / Male INDICATIONS: Respiratory disease. CLINICAL DATA: This is the patient's subsequent encounter. Patient reports that signs and symptoms h ave been present for 1 day and indicates a pain score of Nonresponsive. MEDICAL/SURGICAL HISTORY: . Deep venous thrombosis. Affective bipolar disorder. Bronchitis. Int ubated. Acute metabolic encephalopathy. Suicide attempt. Tonsillectomy. . COMPARISON: [facility], CHEST 1V SINGLE AP, 05/18/2018. . FINDINGS: The tracheostomy tube is in good position. There is an NG tube in place with the tip directed into th e stomach. There is a PICC line placed from the right arm with the tip overlying the cavoatrial junct ion. It does loop back on itself within the SVC region. Potentially, it has within the azygos vein. I t still can be used. The heart size is normal. There is some hazy density seen in the right perihilar region. There is minimal hazy density at the base space on the right. CONCLUSION: Right perihilar consolidation or atelectasis with some minimal increased density at the bases likely related to some further consolidation or atelectasis related to mild effusions. When compared to the prior exam, the aeration of the lungs appears improved. Electronically signed by: Alexis Coreas MD 05/23/2018 8:17 AM EST
[2018-05-23] MEDS: Chlorhexidine 0.12% Oral Kit 15 ML UDC OROPHARYNG SCH ×2 (09:41→20:40)
--- NOTE | 2018-05-23 10:47 | P.PNCC ---
Subjective Subjective Remarks/Hospital Course: Patient is approximately 22 years old male obese, was found on the floor by a family member, downtime is unknown. EMS was called, patient was given Narcan with no response, he was intubated on the scene, apparently GCS 3. Found bag of PCP next to the patient. Patient has history of psychiatric disorder ? bipolar disorder and I am told he has attempted suicide in the past. There is also mention about suspicion of ethylene glycol ingestion, but his serum osmolality is 307 his osmolar gap is only 13. Bicarb is 26, ethylene glycol seems unlikely. Ethanol was negative urine drug screen only positive for benzo. I evaluated the patient in the ICU at the [facility]. Patient had a CT of the head which was negative. Rest of the workup unremarkable except for bibasilar atelectasis/aspiration pneumonia. Patient's white count is elevated at 17.1, glucose is 232 lactic acid was 2.8. He received multiple fluid boluses. At this time he is not on any sedation but remains unresponsive no response to deep pain 04/28 Patient remains intubated off sedation unresponsive. Afebrile. 04/29: MRI of the brain revealed no acute intracranial findings. EEG to be performed tomorrow. More arousable and moves all 4 extremities but not following commands. Placed on dexamethasone E drip. 2 feeds will be restarted 04/30: T-max 101.4. Currently afebrile. No bowel movement since admission. Arousable and follows simple commands late last night but currently on sedation for agitation. Increased FiO2 noted. Will attempt to gently diurese and continue antibiotics for pansensitive staph aureus/group a beta strep sputum 05/01 Patient is sedated with Fentanyl, Diprivan and intubated. T:101.1 at 5am. Placed on APRV overnight. 05/02 Patient is sedated with Diprivan and Fentanyl drips. Tmax 101.3, on PC/AC with PEEP:12, FIO2 80%, IP:30 05/03 Patient is heavily sedated with Diprivan, Fentanyl and Versed . On PC/AC with PEEP: 14 and FIO2 100$ sats 92%, CXR yesterday showed diffuse b/l pulm infiltrates, started on Flolan nebs. Had Tmax 102.6 last night. 05/04 Patient was placed on rotoprone bed yesterday sedated with Diprivan, Versed and Fentanyl infusion and on neuromuscular blockade( Nimbex) On PC/AC His FIO2 requirements is better now on FIO2:50% from 100% with PEEP:14. T:102.6 05/05 Patient remains intubated and sedated on Bumex drip 0.5mg/hr, T:99.7 at 3am. On PC/AC with PEEP:1 and FIO2 60%- sats 95%. 05/06 Patient remains sedated and intubated on rotoprone bed with improvements in his oxygenation. Now on PC/AC with PEEP:10, FIO2 40%. Afebrile. On Bumex drip 0.5mg/hr. 05/07 Patient remains on rotoprone bed sedated and on Nimbex drip. He is also on Bumex drip 0.5mg/hr with good urine output . 05/08 Patient remains sedated and intubated. On Flolan, and Bumex drip. Afebrile. 05/09 Patient desat overnight now on PC/AC with PEEP:10 and FIO2 100% sats 96%. Had T: 100.4 at midnight. Sputum cx 05/07 GNR. Remains sedated on Flolan and Bumex drip. 05/10: Resting in bed. Remains on PC/AC rate increased to 16. FiO2 80%. Low- grade fevers noted. Remains on epoprostenol and bumetanide drips. Hypertension noted. Aspirated this a.m. and so discontinued tube feeding. We will start PPN today. 05/11 Patient remains on rotoprone bed, sedated and intubated. Afebrile. On PC/ AC with PEEP;10 and FIO2 55%.On Flolan and Bumex drip 0.5mg/hr 05/12 Remains sedated, intubated and on Rotoprone bed. PC/AC with PEEP: 12 and FIO2 70% sats 96%. T:100.4 last night. On Flolan and Bumex drip. 05/14: Off rotaprone since yesterday, nimbex discontinued, PEEP 14 and FiO2 50% with sats in mid 90s. Still on flolan. 05/15: No acute issues overnight, plan is to wean PEEP slowly over the weekend for tracheostomy on Friday 05/18. 05/16: Flolan weaned yesterday, tolerated well, will continue to wean today. PEEP down to 10. O2 sats low to mid 90s. 05/17: TFs held overnight for high residuals; KUB showed Dobhoff tube in distal stomach with NGT in proximal stomach. Will hold for now, will need to be NPO at midnight for hopeful trach tomorrow. Continue PPN for now. 05/18: Patient had a desat event last night and had to have PEEP increased to 14. Pulse ox probe changed this morning and noted to be 100, now weaned back down to PEEP 10 and FiO2 60%. Will continue to wean FiO2. Flolan off since yesterday. Trach today or tomorrow. 05/19: Trach today. PEEP 8, FiO2 40%. No overnight events. 05/20: Trach performed in OR yesterday afternoon, no immediate complications, sent for MRI C spine this morning by neurology to evaluate for myelopathy which showed no acute abnormalities. Sedation weaned, patient now awake and alert, follows commands, mouths words. 05/21: Currently remains intubated sedated. Requiring heavy sedation for vent synchrony. Currently on propofol fentanyl and Versed infusions. Still wakes up and weakly follows. We will lighten sedation attempt CPAP and possible T- piece 2-4 hours today 05/22: Currently wide awake on the vent despite continuous sedation. Mother requests restarting Wellbutrin which I have ordered. Did not tolerate T-piece yesterday. Attempt again today 05/23: Remains intubated currently heavily sedated as the patient showed violent behavior yesterday. Threatening to hit the staff. Required heavy sedation since then. Remains on propofol fentanyl and Precedex now. Wakes up easily follows commands. Mother confirms history of bipolar disorder (Dr. Kaye was psychiatrist). I have requested psych consult to assist with management of agitation/violent behavior. Hold Wellbutrin which was started yesterday Objective Vital Signs / I&O: Vital Signs 05/22/18 12:00 05/22/18 16:00 05/22/18 16:08 Temperature 99.1 F 99 F Pulse Rate 76 78 Respiratory Rate 26 H 20 15 Blood Pressure 112/58 L 109/59 L Pulse Oximetry 96 99 99 05/22/18 20:00 05/22/18 22:54 05/23/18 00:00 Temperature 98.8 F 99.1 F Pulse Rate 71 83 Respiratory Rate 16 12 16 Blood Pressure 120/72 117/57 L Pulse Oximetry 100 98 95 05/23/18 00:14 05/23/18 00:30 05/23/18 02:00 Temperature Pulse Rate 62 63 Respiratory Rate 30 H Blood Pressure 117/57 L Pulse Oximetry 96 94 L 95 05/23/18 03:24 05/23/18 03:34 05/23/18 04:00 Temperature 99.7 F H Pulse Rate 83 61 68 Respiratory Rate 20 Blood Pressure 158/80 H 144/77 H 144/77 H Pulse Oximetry 93 L 95 94 L 05/23/18 04:53 05/23/18 06:00 05/23/18 08:00 Temperature 99.1 F Pulse Rate 86 75 Respiratory Rate 17 15 Blood Pressure Pulse Oximetry 97 96 96 Intake & Output 05/22/18 05/23/18 05/23/18 18:59 06:59 18:59 Intake Total 2279.3 / 2279.3 2742.3 / 2742.3 700 / 700 Output Total 5600 / 5600 1605 / 1605 Balance -3320.7 / -3320.7 1137.3 / 1137.3 700 / 700 Weight 146 kg Intake: IV 1802.3 / 1802.3 2001.3 / 2001.3 700 / 700 Precedex Inj 1,000 MCG In NS 702.3 / 702.3 952.3 / 952.3 250 / 250 Inj 240 ML @ 0.2 MCG/KG/HR 8.4 mls/hr IV.CONT TITRATE PRN Rx#: [id number] Diprivan 1000 mg/100 ml Inj 1, 400 / 400 500 / 500 200 / 200 000 mg In 100 ml @ 5 MCG/KG/MIN 4.77 mls/hr IV.CONT TITRATE PRN Rx#:[id number] Avycaz Inj 2.5 GM In NS Inj 50 100 / 100 ML @ 25 mls/hr IV.SIG Q8H DARRION Rx#:[id number] KCl 20 mEq Premix Inj 20 meq In 200 / 200 200 / 200 100 ml @ 50 mls/hr IV.SIG Q2H PRN Rx#:[id number] fentaNYL 10 mcg/mL Premix Drip 500 / 500 250 / 250 250 / 250 2,500 mcg In 250 ml @ 50 MCG/HR 5 mls/hr IV.SIG TITRATE PRN Rx #:[id number] Tube Feeding 477 / 477 390 / 390 Tube Irrigant 100 / 100 Water Bolus Amount 250 / 250 Output: Urine 5100 / 5100 1500 / 1500 Stool 500 / 500 100 / 100 Estimated Blood Loss 5 / 5 Other: Date of Last Bowel Movement 05/22/18 05/22/18 05/22/18 Result Diagrams: 05/23/18 04:15 05/23/18 04:15 Objective Remarks: GENERAL: Lying in bed sedated but wide awake following commands. SKIN: Warm and dry HEAD: NCAT NECK: Supple, tracheostomy present, clean and dry CARDIOVASCULAR: Regular rate and rhythm in 80s RESPIRATORY: Improved breath sounds bilaterally GASTROINTESTINAL: Abdomen obese, soft, non-tender in all quadrants MUSCULOSKELETAL: Trace peripheral edema, improving Neuro: Ventilated via tracheostomy, sedated but wide awake follows commands 4 out of 5 power in all extremities. Attempts to mouth words Assessment and Plan - Assessment and Plan Plan: NEURO/PSYCH: Acute metabolic encephalopathy Suspected PCP overdose Suspected ethylene glycol overdose Suicide attempt Critical illness myopathy Bipolar disorder -Requiring heavy sedation for vent synchrony with propofol and fentanyl Versed and Precedex. -Continue p.o. Ativan and clonidine to facilitate IV sedation weaning -Delirium precautions * Lights on/ shades up during the day, limit night time disruptions, frequent reorientation, patient's parents brought his glasses in from home and he should be provided with these whenever awake -Psychiatric consult requested today to assist with management of agitation and violent behavior nightly history of bipolar -Wellbutrin was restarted yesterday will hold until psych input -CT of the head negative. MRI of brain negative. MRI C spine negative. -EEG 05/18, 04/30, 04/28 with no epileptic activity RESP: Acute hypoxemic respiratory failure-resolving Severe ARDS s/p Prone therapy Bibasilar aspiration pneumonitis Tobacco abuse -Continue with vent support keep sats >92% -s/p tracheostomy, POD #4 -Tolerating CPAP intermittently, unable to do T-piece trials -Ventilator bundle. Bronchodilators (ipratropium/albuterol, Q4), Solumedrol 20mg Q12-05/21/2018 -s/p bronch 05/02 thick secretions suctioned to clear. No evidence of EBL or bleeding. -Nicotine patch CV: Essential hypertension -Monitor HR and BP keep MAP>65mmHg -On Lopressor 50mg TID -Echo 04/28: EF 60-65%, PASP 36mmHg GI: Elevated ALT Hypoalbuminemia - IV famotidine. -Docusate serum/senna 1 tablet twice daily for bowel regimen. Lactulose 30 cc twice daily and MiraLAX 17 g twice daily. Renal/FEN/: -Monitor renal function, I/O's, electrolytes replacement as needed -Trickle TFs, advance as tolerated. Increase tube feeding rate to 40 cc/h -d/cd PPN when tolerating TFs at 40 cc per hour -Continue BID bumex, urine output continues to be excellent, PPN was discontinued 05/21/2018 ID: MSSA/group A beta strep pneumonia Superadded Enterobacter/Klebsiella pneumonia ESBL Abx per ID- continue Merrem, micafungin, vanco 05/07 Sputm cx: Kleb pneumonia, Enterobacter. Repeat cultures from 05/13 have no growth at 5 days, another set of cultures sent 05/18 and pending 04/27 Sputum: Staph aureus/MSSA and beta strep not group A. 05/03 BC: Coag neg staph 05/02 bronch cx: Staph Aureus HEME: Normocytic anemia Leukocytosis-- resolved -Anemia of chronic illness, stable ENDO/FEN: Hyperglycemia -Electrolyte replacement per protocol -Sliding scale insulin -Continue solumedrol q12 MSK: Myopathy of critical illness, severe deconditioning PT/ OT evals appreciated, multipodus boot ordered, patient may benefit from wrist splints/ passive ROM exercises, now awake and alert and can benefit from communicative aids Up to stretcher chair daily PROPH: GI prophylaxis- On Pepcid DVT prophylaxis- Lovenox 40mg SQ BID Doppler US LE: thrombosis of the posterior tibial vein within the calf bilaterally. Repeat duplex on 05/18 shows persistent LLE below the knee DVT which has not propagated proximally. No RLE DVT seen. Case management consulted to help with discharge planning. Patient will need aggressive PT/ OT and will likely need prolonged wean from ventilator given extent of physical deconditioning. LINES: -PICC placed on 05/08/18 OVERALL: Patient significantly improved over the past week. OOB to chair start aggressively weaning vent, advance TFs, dispo planning. Level 2 follow up To help prompt me to consider important information that might be impacting today's encounter and assessment, information from prior notes written by myself or my colleagues may have been "brought forward" into today's note. My signature on this note, however, is an attestation that I personally performed the exam, history, and/or decision-making noted today, and, unless otherwise indicated, the interactions with patient, family, and staff as well as the review of records all occurred today. I also attest that the listed assessment and stated plan reflect my best clinical judgment today based on the combination of historical information, prior notes, and today's exam/ interactions.
--- NOTE | 2018-05-23 16:24 | P.CONPSY ---
Provisional Diagnosis Admission Date: April 27, 2018 16:03 Sabattus I.: 1. Adjustment disorder, unspecified Suspect component of delirium due to [facility] 2. History of Bipolar illness Sabattus II.: Deferred History of Present Illness Service: Psychiatry Consult date: 05/23/18 Requesting Physician: Cecile Espinoza Reason for Consult: Management of agitation Primary Care Provider: Henrry Reyes MD Chief Complaint: Confusion History of Present Illness: Mr. Cuevas is a 22-year-old male with a reported history of bipolar illness who presented initially with altered mental status following suspected overdose. He was admitted to the [facility] for management of his presenting symptoms. ICU stay has been complicated by persistent agitation when attempts are made to wean sedative medications. Reviewing the electronic medical record , I note that the patient has a history of ED visits for psychiatric evaluation , and I saw the patient myself in 2016 with diagnoses of drug-induced psychotic disorder and polysubstance abuse at that time. Patient seen and examined. Chart reviewed. Case discussed with nursing staff. Nurse reports that patient has been severely agitated whenever attempts have been made to reduce level of sedation, which is presently fairly significant. I did ask the nurse to lighten patient's sedation so that I can try to evaluate him. Patient's mother is at the bedside and provides much of the history. Patient does awaken briefly for evaluation. He has a trach in place which somewhat limits communication. He is initially fairly calm and attributes his intermittent agitation to physical discomfort. He does admit to feeling somewhat confused and endorses occasional hallucinations. He becomes increasingly agitated during the course of our interview, and the nurse has to resume previous level of sedation, effectively concluding our interaction. According to collateral information from the mother, the patient initially was diagnosed with depression although this diagnosis was subsequently revised to bipolar illness. Patient presently follows with Dr. Kaye and was most recently prescribed Wellbutrin. He was also recently prescribed carbamazepine but could not tolerate this agent. Mother notes that the patient has done well on Wellbutrin and also did well with Prozac in the past although he reportedly had sexual side effects from this agent. She notes that the patient has had excessive sedation from previous atypical antipsychotic trials, namely Abilify and Seroquel. Family has also taken the patient for ketamine infusions for management of his psychiatric illness. Mother is not sure if presenting overdose, which she suspects was on Sonata, was suicidal in nature or if patient was simply trying to get some sleep and improperly gauged the amount of medication that he took. I have an extensive discussion with mother as presumptive surrogate decision maker regarding recommendations for management of patient's condition from a psychiatric standpoint. In particular we discussed the risks, benefits and alternatives of a trial of haloperidol. I reviewed with her in particular the motor side effects, including EPS and TD. We also discussed the potential risk of NMS. Mother is in agreement with a trial of this agent. We have discussed holding off on patient's antidepressant until his mental status has improved out of concern that any additional psychotropics may cloud the picture. I have recommended that the patient's mother reach out to [facility] for resources and support. 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 Onset Date: ~05/18/18 - Surgical History Surgical History: Surgical History (Last Reviewed 05/22/18 @ 10:37 by Neal Aquino) Hx of tonsillectomy - Family History Family History: Family History (Last Reviewed 05/14/18 @ 20:06 by Bam Luna MD) Other Family history normal - Tobacco History Second Hand Smoke Exposure: No Tobacco Use In Past 30 Days: No Smoking Status: Current every day smoker Tobacco Type: E-Cigarettes - Alcohol History How Often Do You Have a Drink Containing Alcohol: Never - Substance Use History Substance History: Past History - Travel History Recent Travel in the [place] Within the Last 8 Weeks: No Recent Travel Out of the Country Within the Last 8 Weeks: No - Immunization History Tetanus Immunization: Unsure Hx Influenza Vaccine This Season: No Medications and Allergies Active Medications: Active Medications Acetaminophen (Tylenol Liq) 650 mg PO Q6H PRN PRN Reason: FEVER Last Admin: 05/17/18 20:15 Dose: 650 mg Al Hydroxide/Mg Hydroxide (Milk Of Magnesia Liq) 30 ml PO Q12H PRN PRN Reason: Mild Constipation Albuterol (Albuterol Neb (Prn)) 2.5 mg NEB Q2HR NEB PRN PRN Reason: SHORTNESS OF BREATH/WHEEZING Last Admin: 05/21/18 22:25 Dose: 2.5 mg Alteplase, Recombinant (Cathflo Activase Inj) 2 mg I-CATHETER Q2H PRN PRN Reason: CLOTTED IV ACCESS DEVICE Last Admin: 05/22/18 17:48 Dose: 2 mg Artificial Tears (Tears Naturale Opth Drops) 1 drop EACH EYE Q8H [facility] Last Admin: 05/23/18 15:38 Dose: 1 drop Bisacodyl (Dulcolax Supp) 10 mg RECTAL DAILY PRN PRN Reason: SEVERE CONSITIPATION Bumetanide (Bumex Inj) 2 mg IV.PUSH Q8H [facility] Last Admin: 05/23/18 12:02 Dose: 2 mg Bupropion HCl (Wellbutrin) 100 mg NG/OG BID [facility] Last Admin: 05/23/18 08:10 Dose: 100 mg Chlorhexidine Gluconate (Peridex 0.12% Oral Kit) 15 ml OROPHARYNG BID@0800, 2000 [facility] Last Admin: 05/23/18 09:41 Dose: 15 ml Clonidine HCl (Catapres) 0.2 mg PO Q8HR [facility] Last Admin: 05/23/18 13:54 Dose: 0.2 mg Collagenase (Santyl Oint) 1 applicatio TOPICAL DAILY [facility] Last Admin: 05/23/18 08:11 Dose: 1 applicatio Dextrose (D50w Vial) 50 ml IV.PUSH UNSCH PRN PRN Reason: PER HYPOGLYCEMIA PROTOCOL Enoxaparin Sodium (Lovenox Inj) 40 mg SQ Q12HR [facility] Last Admin: 05/18/18 20:15 Dose: 40 mg Erythromycin Ethylsuccinate (Ees 400 Mg/5 Ml Liq) 250 mg NG/OG TID [facility] Last Admin: 05/23/18 12:03 Dose: 250 mg Glucagon (Glucagon Inj) 1 mg OTHER PRN PRN PRN Reason: for Hypoglycemia Protocol Heparin Sodium (Porcine) (Heparin Central Flush) 0 unit IV.FLUSH DAILY [facility] Last Admin: 05/23/18 08:10 Dose: Not Given Heparin Sodium (Porcine) (Heparin Central Flush) 0 unit IV.FLUSH PRN PRN PRN Reason: Flush PICC Line Last Admin: 05/21/18 17:34 Dose: 200 unit Hydralazine HCl (Apresoline Inj) 10 mg IV.PUSH Q1H PRN PRN Reason: SBP>160, DBP>90 Magnesium Sulfate 4 gm/ Sodium (Chloride) 100 mls @ 50 mls/hr IV.SIG UNSCH PRN PRN Reason: For Magnesium 0.9 - 1.1 mg/dL Potassium Chloride (Kcl 40 Meq Premix Inj) 40 meq in 100 mls @ 25 mls/hr IV.SIG Q2H PRN PRN Reason: For Potassium 2.8 - 3.2 mEq/L Last Infusion: 05/17/18 12:00 Dose: Infused Potassium Chloride (Kcl 20 Meq Premix Inj) 20 meq in 100 mls @ 50 mls/hr IV.SIG Q2H PRN PRN Reason: For Potassium 3.3 - 3.5 mEq/L Last Infusion: 05/22/18 22:41 Dose: Infused Potassium Chloride (Kcl 40 Meq Premix Inj) 40 meq in 100 mls @ 25 mls/hr IV.SIG UNSCH PRN PRN Reason: For Potassium 3.3 - 3.5 mEq/L Last Infusion: 05/11/18 12:53 Dose: Infused Potassium Chloride (Kcl 20 Meq Premix Inj) 20 meq in 100 mls @ 50 mls/hr IV.SIG Q2H PRN PRN Reason: For Potassium 2.8 - 3.2 mEq/L Last Infusion: 05/22/18 22:41 Dose: Infused Potassium Phosphate 30 mmol/ (Sodium Chloride) 260 mls @ 42 mls/hr IV.SIG UNSCH PRN PRN Reason: SEE LABEL COMMENTS Magnesium Sulfate 2 gm/ Sodium (Chloride) 100 mls @ 50 mls/hr IV.SIG UNSCH PRN PRN Reason: For Magnesium 1.2 - 1.6 mg/dL Sodium Phosphate 30 mmol/ (Sodium Chloride) 260 mls @ 42 mls/hr IV.SIG UNSCH PRN PRN Reason: For Phosphorus < 2.5 mg/dL Propofol (Diprivan 1000 Mg/100 Ml Inj) 1,000 mg in 100 mls @ 4.77 mls/hr IV.CONT TITRATE PRN; Protocol PRN Reason: Per Protocol Last Admin: 05/23/18 15:28 Dose: 50 mcg/kg/min, 47.7 mls/hr Fentanyl (Fentanyl 10 Mcg/Ml Premix Drip) 2,500 mcg in 250 mls @ 5 mls/hr IV.SIG TITRATE PRN; Protocol PRN Reason: Per Protocol Last Admin: 05/23/18 15:28 Dose: 350 mcg/hr, 35 mls/hr Dexmedetomidine HCl 1,000 mcg/ (Sodium Chloride) 250 mls @ 8.4 mls/hr IV.CONT TITRATE PRN; Protocol PRN Reason: Per Protocol Last Admin: 05/23/18 13:36 Dose: 2 mcg/kg/hr, 84 mls/hr Ceftazidime/Avibactam 2.5 gm/ (Sodium Chloride) 50 mls @ 25 mls/hr IV.SIG Q8H [facility] Last Infusion: 05/23/18 12:11 Dose: Infused Insulin Aspart (Novolog Insulin Correctional Sugar Inj) 0 unit SQ Q6HR [facility]; Protocol Last Admin: 05/23/18 12:03 Dose: Not Given Labetalol HCl (Trandate Inj) 10 mg IV.PUSH Q1H PRN PRN Reason: Sbp>165, Dbp>90, Hr>65 Lactulose (Lactulose Liq) 30 ml PO DAILY PRN PRN Reason: SEVERE CONSITIPATION Lactulose (Lactulose Liq) 30 ml PO BID [facility] Last Admin: 05/23/18 08:01 Dose: Not Given Lorazepam (Ativan) 1 mg PO Q6HR [facility] Last Admin: 05/23/18 12:02 Dose: 1 mg Magnesium Oxide (Mag-Ox) 800 mg PO UNSCH PRN PRN Reason: For Magnesium 1.2 - 1.6 mg/dL Methylprednisolone Sodium Succinate (Solumedrol Inj) 20 mg IV.PUSH Q12HR [facility] Last Admin: 05/23/18 08:11 Dose: 20 mg Metoprolol Tartrate (Lopressor) 50 mg PO TID [facility] Last Admin: 05/23/18 12:02 Dose: 50 mg Miscellaneous Medication () 1 each OROPHARYNG 0000,0400,1200,1600 [facility] Last Admin: 05/23/18 15:38 Dose: 1 each Ondansetron HCl (Zofran Inj) 4 mg IV.PUSH Q6H PRN PRN Reason: NAUSEA OR VOMITING Last Admin: 05/20/18 03:13 Dose: 4 mg Oxycodone HCl (Roxicodone Intensol Liq) 5 mg PO Q6H [facility] Last Admin: 05/23/18 12:03 Dose: 5 mg Pantoprazole Sodium (Protonix Inj) 40 mg IV.PUSH DAILY [facility] Last Admin: 05/23/18 08:11 Dose: 40 mg Polyethylene Glycol (Miralax) 17 gm PO BID [facility] Last Admin: 05/23/18 08:01 Dose: Not Given Potassium Bicarb/Potassium Chloride (K-Lyte Cl Eff) 50 meq PO UNSCH PRN PRN Reason: For Potassium 3.3 - 3.5 mEq/L Last Admin: 05/15/18 17:32 Dose: 50 meq Potassium Bicarbonate (Effer-K) 25 meq NG/OG BID [facility] Last Admin: 05/23/18 08:10 Dose: 25 meq Potassium Phosphate (K-Phos Original) 2,000 mg PO Q4H PRN PRN Reason: Phosphorus Less Than 2.5 mg/dL Potassium Phosphate (K-Phos Original) 2,000 mg PO UNSCH PRN PRN Reason: SEE LABEL COMMENTS Senna/Docusate Sodium (Jemima-Colace) 1 tab PO BID [facility] Last Admin: 05/23/18 08:10 Dose: 1 tab Sennosides (Senokot) 17.2 mg PO Q12H PRN PRN Reason: Moderate Constipation Sodium Chloride (Ns Flush) 2 ml IV.FLUSH BID [facility] Last Admin: 05/23/18 08:10 Dose: Not Given Sodium Chloride (Ns Flush) 2 ml IV.FLUSH PRN PRN PRN Reason: FLUSH AFTER USING IV ACCESS Last Admin: 05/11/18 08:30 Dose: 2 ml Sodium Chloride (Ns Flush) 0 ml IV.FLUSH DAILY [facility] Last Admin: 05/23/18 08:01 Dose: Not Given Sodium Chloride (Ns Flush) 0 ml IV.FLUSH PRN PRN PRN Reason: FLUSH AFTER USING IV ACCESS Sodium Chloride (Ns Flush) 0 ml IV.FLUSH PRN PRN PRN Reason: Flush After Blood Draws Sterile Water (Free Water) 250 ml G-TUBE Q12HR [facility] Last Admin: 05/23/18 08:10 Dose: 250 ml Allergies Allergy/AdvReac Type Severity Reaction Status Date / Time shellfish derived Allergy Anaphylaxis Verified 04/29/18 13:12 No Known Allergies Allergy Uncoded 04/29/18 13:12 Home Medications Medication Instructions Recorded Confirmed Type Unable to Obtain Home Meds 04/27/18 04/27/18 History Exam Vital signs: Vital Signs 05/22/18 20:00 05/22/18 22:54 05/23/18 00:00 Temperature 98.8 F 99.1 F Pulse Rate 71 83 Respiratory Rate 16 12 16 Blood Pressure 120/72 117/57 L Pulse Oximetry 100 98 95 05/23/18 00:14 05/23/18 00:30 05/23/18 02:00 Temperature Pulse Rate 62 63 Respiratory Rate 30 H Blood Pressure 117/57 L Pulse Oximetry 96 94 L 95 05/23/18 03:24 05/23/18 03:34 05/23/18 04:00 Temperature 99.7 F H Pulse Rate 83 61 68 Respiratory Rate 20 Blood Pressure 158/80 H 144/77 H 144/77 H Pulse Oximetry 93 L 95 94 L 05/23/18 04:53 05/23/18 06:00 05/23/18 08:00 Temperature 99.1 F Pulse Rate 86 75 Respiratory Rate 17 15 Blood Pressure Pulse Oximetry 97 96 96 05/23/18 09:01 05/23/18 10:00 05/23/18 11:00 Temperature Pulse Rate 71 71 71 Respiratory Rate Blood Pressure 113/59 L 118/62 130/76 Pulse Oximetry 98 93 L 91 L 05/23/18 11:50 05/23/18 12:00 05/23/18 13:00 Temperature 98.4 F Pulse Rate 60 69 Respiratory Rate 16 Blood Pressure 128/67 127/71 Pulse Oximetry 95 94 L 05/23/18 15:50 Temperature Pulse Rate Respiratory Rate 14 Blood Pressure Pulse Oximetry 94 L Intake & Output 05/22/18 05/23/18 05/23/18 18:59 06:59 18:59 Intake Total 2279.3 / 2279.3 2742.3 / 2742.3 1450 / 1450 Output Total 5600 / 5600 1605 / 1605 Balance -3320.7 / -3320.7 1137.3 / 1137.3 1450 / 1450 Weight 146 kg Intake: IV 1802.3 / 1802.3 2001.3 / 2001.3 1450 / 1450 Precedex Inj 1,000 MCG In NS 702.3 / 702.3 952.3 / 952.3 500 / 500 Inj 240 ML @ 0.2 MCG/KG/HR 8.4 mls/hr IV.CONT TITRATE PRN Rx#: [id number] Diprivan 1000 mg/100 ml Inj 1, 400 / 400 500 / 500 400 / 400 000 mg In 100 ml @ 5 MCG/KG/MIN 4.77 mls/hr IV.CONT TITRATE PRN Rx#:[id number] Avycaz Inj 2.5 GM In NS Inj 50 100 / 100 50 / 50 ML @ 25 mls/hr IV.SIG Q8H DARRION Rx#:[id number] KCl 20 mEq Premix Inj 20 meq In 200 / 200 200 / 200 100 ml @ 50 mls/hr IV.SIG Q2H PRN Rx#:[id number] fentaNYL 10 mcg/mL Premix Drip 500 / 500 250 / 250 500 / 500 2,500 mcg In 250 ml @ 50 MCG/HR 5 mls/hr IV.SIG TITRATE PRN Rx #:[id number] Tube Feeding 477 / 477 390 / 390 Tube Irrigant 100 / 100 Water Bolus Amount 250 / 250 Output: Urine 5100 / 5100 1500 / 1500 Stool 500 / 500 100 / 100 Estimated Blood Loss 5 / 5 Other: Date of Last Bowel Movement 05/22/18 05/22/18 05/22/18 Narrative: Physical examination completed by primary team. On my examination today, the patient appears to be in moderate acute physical distress. No motor abnormalities noted. No signs of withdrawal noted. Laboratories and vital signs reviewed: Laboratory Tests 04/27/18 04/27/18 04/28/18 11:30 14:31 18:20 WBC Hgb Plt Count Sodium Potassium Chloride Carbon Dioxide BUN Creatinine Estimated GFR POC Glucose AST ALT Alkaline Phosphatase Urine Opiates Screen Neg Ur Barbiturates Screen Neg Valproic Acid Less than 3 L Carbamazepine 0.5 L Ur Amphetamines Screen Neg U Benzodiazepines Scrn Pos H [place] Urine Cocaine Screen Neg U Cannabinoids Screen Neg Serum Alcohol Less than 3 04/28/18 05/23/18 05/23/18 18:20 04:15 04:15 WBC 11.9 H Hgb 11.4 L Plt Count 231 D Sodium 138 Potassium 4.4 Chloride 105 Carbon Dioxide 26.1 BUN 15 Creatinine 0.44 L Estimated GFR Greater than 89 POC Glucose AST 28 ALT 133 H Alkaline Phosphatase 73 Urine Opiates Screen Ur Barbiturates Screen Valproic Acid Carbamazepine Ur Amphetamines Screen U Benzodiazepines Scrn [place] 0.1 L Urine Cocaine Screen U Cannabinoids Screen Serum Alcohol 05/23/18 11:39 WBC Hgb Plt Count Sodium Potassium Chloride Carbon Dioxide BUN Creatinine Estimated GFR POC Glucose 146 H AST ALT Alkaline Phosphatase Urine Opiates Screen Ur Barbiturates Screen Valproic Acid Carbamazepine Ur Amphetamines Screen U Benzodiazepines Scrn [place] Urine Cocaine Screen U Cannabinoids Screen Serum Alcohol Head CT 04/27/18 11:31 CONCLUSION: 1. Negative CT Head non contrast. Abdomen/Pelvis CT 04/27/18 11:35 CONCLUSION: 1. Extensive atelectasis in both lower lobes. 2. The Stone catheter needs to be deflated and advanced into the bladder. The catheter is at the level of the prosthetic urethra. 3. No findings to indicate a bowel obstruction are seen. No free air free fluid is identified. Cervical Spine CT 04/27/18 11:36 CONCLUSION: 1. Negative trauma study. Lumbar Spine CT 04/27/18 11:59 CONCLUSION: 1. Negative for acute process 2. There is no evidence for vertebral compression. Head MRI 04/29/18 07:05 CONCLUSION: 1. Negative MRI of the brain. 2. Inflammatory process cannot be entirely excluded. 3. There are no infarcts identified. Venous Doppler Study 05/12/18 00:00 CONCLUSION: 1. The exam demonstrates thrombosis of the posterior tibial vein within the calf bilaterally. Chest X-Ray 05/23/18 08:00 CONCLUSION: Right perihilar consolidation or atelectasis with some minimal increased density at the bases likely related to some further consolidation or atelectasis related to mild effusions. When compared to the prior exam, the aeration of the lungs appears improved. EKG read as sinus rhythm with frequent ectopic premature complexes. QTC is 408 ms, not prolonged. Mental Status Examination Appearance: Disheveled Consciousness: Alert Orientation: Person Speech: Other (mouths words, trach in place) Language: Adequate Mood: Anxious Affect: Anxious Thought Process & Associations: Circumstantial Thought Content: Hallucinations Hallucination Type: Visual Delusion Type: None Suicidal Ideation: No (No SI verbalized) Homicidal Ideation: No (No HI verbalized) Insight: Poor Judgment: Poor Assessment and Plan - Assessment (1) Adjustment disorder Code(s): F43.20 - Adjustment disorder, unspecified Status: Acute - Plan Plan: 22-year-old male with psychiatric history as detailed above who is presently admitted to the [facility] following overdose, intention unclear. Psychiatry is consulted to assist with management of agitation, which is preventing reduction in sedative dose. On my examination today, the patient attributes agitation to physical discomfort. However, the patient also describes subjective confusion and some hallucinations suggestive of a delirious process, likely secondary to patient's acute medical issues. In addition to attending to the patient's comfort as able and addressing underlying medical issues, I recommend the following: --Recommend trial of Haldol 2mg q8h IV to start. QTc wnl. Effect will likely be modest at this dose, but we need to ensure good tolerabililty. So long as agent is well tolerated, could advance the dose by 1mg q8h every other day to adequate therapeutic response or an interval target dose of 5mg IV q8h, whichever comes first. If patient is not having significant reductions in agitation with this interval target dose, may need to reassess therapy. --Would hold off on resuming patient's outpatient scheduled psychotropics until mental status is improved as they will take on the order of weeks to have therapeutic action and may cloud the clinical picture. --Would recommend limiting use of opiates except as needed to manage severe pain , benzodiazepines, anticholinergics and antihistamines as all can worsen mental status. --Would recommend frequent reorientation and mobilization as able, aggressive management of any constipation or urinary retention, assistive devices at the bedside, limitation of use of restraints as able. --Intent of presenting overdose must be reassessed prior to discharge to determine whether psychiatric hospitalization is necessary following medical stabilization. Case discussed with RN. Thank you very much for this consultation. Please call or page [phone] during daylight hours through the weekend. I will sign the case out to Dr. Turcios after the weekend and ask him to follow-up. Justification for Continued Inpatient Stay: Per primary team (1) Adjustment disorder Qualifiers: Adjustment disorder type: unspecified type Qualified Code(s): F43.20 - Adjustment disorder, unspecified
[2018-05-23] MEDS: Enoxaparin Inj 40 MG/0.4 ML Syringe SQ SCH (20:44)
[2018-05-23] MEDS: Melatonin 5 MG Tablet PO SCH (22:25)
[2018-05-24] MEDS: Insulin NovoLOG Aspart Correctional Sugar Inj SQ SCH ×5 (01:12→23:06)
[2018-05-24] MEDS: Ceftazidime/Avibactam Inj 2.5 GM in Sodium Chlor 0.9% Inj 50 ML IV.SIG SCH ×3 (01:16→17:41)
[2018-05-24] MEDS: Dexmedetomidine Inj 1,000 MCG in Sodium Chlor 0.9% Inj 240 ML IV.CONT PRN ×7 (02:09→23:07)
[2018-05-24] MEDS: Propofol 1000 mg/100 ml Inj 1,000 MG/100 ML BOTTLE IV.CONT PRN ×10 (02:10→23:23)
[2018-05-24] MEDS: Oral Hygiene Kit OROPHARYNG SCH ×4 (03:27→23:00)
[2018-05-24] MEDS: LORazepam 0.5 MG Tablet PO SCH ×4 (05:46→22:59)
[2018-05-24] MEDS: fentaNYL 10 mcg/mL Premix Drip 2,500 MCG/250 ML BAG IV.SIG PRN ×3 (06:21→20:56)
[2018-05-24] MEDS: Artificial Tears Opth Drops 15 ML Bottle EACH EYE SCH ×3 (09:26→23:00)
[2018-05-24] MEDS: Chlorhexidine 0.12% Oral Kit 15 ML UDC OROPHARYNG SCH ×2 (09:26→20:47)
[2018-05-24] MEDS: Enoxaparin Inj 40 MG/0.4 ML Syringe SQ SCH ×2 (09:27→20:51)
[2018-05-24] MEDS: Pantoprazole Inj 40 MG Vial IV.PUSH SCH (09:27)
[2018-05-24] MEDS: Erythromycin Ethylsuccinate Susp 400 MG/5ML 100 ML Bottle NG/OG SCH ×3 (09:28→17:41)
[2018-05-24] MEDS: Metoprolol Tartrate 50 MG Tablet PO SCH ×3 (09:29→17:41)
[2018-05-24] MEDS: MethylPREDNISolone Sod Succinate Inj 40 MG/ML Vial IV.PUSH SCH ×2 (09:29→20:54)
[2018-05-24] MEDS: Senna/Docusate Sodium 8.6/50 MG Tablet PO SCH ×2 (09:29→20:54)
[2018-05-24] MEDS: Polyethylene Glycol 3350 17 GM Packet PO SCH ×2 (09:34→20:53)
[2018-05-24] MEDS: Potassium Bicarbonate 25 MEQ Effervescent Tablet NG/OG SCH ×2 (09:35→20:50)
[2018-05-24] MEDS: Heparin Central Flush 100 UNIT/ML 5 ML Vial IV.FLUSH SCH (10:33)
[2018-05-24] MEDS: Collagenase Oint 30 GM Tube TOPICAL SCH (10:34)
[2018-05-24] MEDS ORDERED: Haloperidol Inj 5 MG/ML Ampul IV.PUSH PRN (11:18)
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
[2018-05-24] MEDS: Haloperidol Inj 5 MG/ML Ampul IV.PUSH SCH ×3 (11:53→22:59)
--- NOTE | 2018-05-24 12:23 | XR ---
EXAM DATE: 05/24/2018 12:15 PM EST AGE/SEX: 22 years / Male INDICATIONS: Evaluate for respiratory disease. CLINICAL DATA: This is the patient's subsequent encounter. Patient reports that signs and symptoms h ave been present for 1 month and indicates a pain score of Nonresponsive. MEDICAL/SURGICAL HISTORY: . Deep venous thrombosis. Affective bipolar disorder. Bronchitis. Int ubated. Acute metabolic encephalopathy. Suicide attempt. Tonsillectomy. COMPARISON: C, CHEST 1V SINGLE AP, 05/23/2018. . FINDINGS: There is a tracheostomy tube in place. There is a NG tube in place with tip directed into the stomach . There is a PICC line in place from the right arm with some curvature in the right paratracheal jeffery on representing either a area that has turned back on itself versus it being in the azygos vein. It s till can be used. The heart size is normal. There is hazy density at the bases bilaterally with silho uetting the hemidiaphragms. CONCLUSION: Tubes and lines in good position. The density at the bases bilaterally representing accommodation of atelectasis, consolidation and/or effusion. Electronically signed by: Alexis Coreas MD 05/24/2018 12:21 PM EST
[2018-05-24] MEDS: Melatonin 5 MG Tablet PO SCH (20:52)
[2018-05-25] MEDS: Ceftazidime/Avibactam Inj 2.5 GM in Sodium Chlor 0.9% Inj 50 ML IV.SIG SCH ×3 (01:16→16:21)
[2018-05-25] MEDS: Dexmedetomidine Inj 1,000 MCG in Sodium Chlor 0.9% Inj 240 ML IV.CONT PRN ×8 (01:49→22:15)
[2018-05-25] MEDS: Propofol 1000 mg/100 ml Inj 1,000 MG/100 ML BOTTLE IV.CONT PRN ×6 (01:50→22:13)
[2018-05-25] MEDS: fentaNYL 10 mcg/mL Premix Drip 2,500 MCG/250 ML BAG IV.SIG PRN ×3 (03:57→20:58)
[2018-05-25] MEDS: Oral Hygiene Kit OROPHARYNG SCH ×4 (04:11→23:58)
[2018-05-25] MEDS: LORazepam 0.5 MG Tablet PO SCH ×4 (05:44→23:57)
[2018-05-25] MEDS: Insulin NovoLOG Aspart Correctional Sugar Inj SQ SCH ×3 (05:46→17:54)
[2018-05-25] MEDS: Haloperidol Inj 5 MG/ML Ampul IV.PUSH SCH ×4 (05:46→22:15)
--- NOTE | 2018-05-25 08:09 | P.PNPSY ---
Sign out provided to Dr. Turcios, who will assume psychiatric consultative role.
--- NOTE | 2018-05-25 08:09 | P.PNNEU ---
Subjective Subjective Comments: no acute events Active Medications: Active Medications Acetaminophen (Tylenol Liq) 650 mg PO Q6H PRN PRN Reason: FEVER Last Admin: 05/17/18 20:15 Dose: 650 mg Al Hydroxide/Mg Hydroxide (Milk Of Magnesia Liq) 30 ml PO Q12H PRN PRN Reason: Mild Constipation Albuterol (Albuterol Neb (Prn)) 2.5 mg NEB Q2HR NEB PRN PRN Reason: SHORTNESS OF BREATH/WHEEZING Last Admin: 05/21/18 22:25 Dose: 2.5 mg Alteplase, Recombinant (Cathflo Activase Inj) 2 mg I-CATHETER Q2H PRN PRN Reason: CLOTTED IV ACCESS DEVICE Last Admin: 05/22/18 17:48 Dose: 2 mg Artificial Tears (Tears Naturale Opth Drops) 1 drop EACH EYE Q8H [facility] Last Admin: 05/24/18 23:00 Dose: 1 drop Bisacodyl (Dulcolax Supp) 10 mg RECTAL DAILY PRN PRN Reason: SEVERE CONSITIPATION Bumetanide (Bumex Inj) 2 mg IV.PUSH Q8H [facility] Last Admin: 05/25/18 04:14 Dose: 2 mg Bupropion HCl (Wellbutrin) 100 mg NG/OG BID [facility] Last Admin: 05/23/18 08:10 Dose: 100 mg Chlorhexidine Gluconate (Peridex 0.12% Oral Kit) 15 ml OROPHARYNG BID@0800, 2000 [facility] Last Admin: 05/24/18 20:47 Dose: 15 ml Clonidine HCl (Catapres) 0.3 mg PO Q8HR [facility] Last Admin: 05/25/18 05:45 Dose: Not Given Collagenase (Santyl Oint) 1 applicatio TOPICAL DAILY [facility] Last Admin: 05/24/18 10:34 Dose: 1 applicatio Dextrose (D50w Vial) 50 ml IV.PUSH UNSCH PRN PRN Reason: PER HYPOGLYCEMIA PROTOCOL Enoxaparin Sodium (Lovenox Inj) 40 mg SQ Q12HR [facility] Last Admin: 05/24/18 20:51 Dose: 40 mg Erythromycin Ethylsuccinate (Ees 400 Mg/5 Ml Liq) 250 mg NG/OG TID [facility] Last Admin: 05/24/18 17:41 Dose: 250 mg Glucagon (Glucagon Inj) 1 mg OTHER PRN PRN PRN Reason: for Hypoglycemia Protocol Haloperidol Lactate (Haldol Inj) 2 mg IV.PUSH Q6H [facility] Last Admin: 05/25/18 05:46 Dose: 2 mg Heparin Sodium (Porcine) (Heparin Central Flush) 0 unit IV.FLUSH DAILY [facility] Last Admin: 05/24/18 10:33 Dose: Not Given Heparin Sodium (Porcine) (Heparin Central Flush) 0 unit IV.FLUSH PRN PRN PRN Reason: Flush PICC Line Last Admin: 05/21/18 17:34 Dose: 200 unit Hydralazine HCl (Apresoline Inj) 10 mg IV.PUSH Q1H PRN PRN Reason: SBP>160, DBP>90 Magnesium Sulfate 4 gm/ Sodium (Chloride) 100 mls @ 50 mls/hr IV.SIG UNSCH PRN PRN Reason: For Magnesium 0.9 - 1.1 mg/dL Potassium Chloride (Kcl 40 Meq Premix Inj) 40 meq in 100 mls @ 25 mls/hr IV.SIG Q2H PRN PRN Reason: For Potassium 2.8 - 3.2 mEq/L Last Infusion: 05/17/18 12:00 Dose: Infused Potassium Chloride (Kcl 20 Meq Premix Inj) 20 meq in 100 mls @ 50 mls/hr IV.SIG Q2H PRN PRN Reason: For Potassium 3.3 - 3.5 mEq/L Last Infusion: 05/22/18 22:41 Dose: Infused Potassium Chloride (Kcl 40 Meq Premix Inj) 40 meq in 100 mls @ 25 mls/hr IV.SIG UNSCH PRN PRN Reason: For Potassium 3.3 - 3.5 mEq/L Last Infusion: 05/11/18 12:53 Dose: Infused Potassium Chloride (Kcl 20 Meq Premix Inj) 20 meq in 100 mls @ 50 mls/hr IV.SIG Q2H PRN PRN Reason: For Potassium 2.8 - 3.2 mEq/L Last Infusion: 05/22/18 22:41 Dose: Infused Potassium Phosphate 30 mmol/ (Sodium Chloride) 260 mls @ 42 mls/hr IV.SIG UNSCH PRN PRN Reason: SEE LABEL COMMENTS Magnesium Sulfate 2 gm/ Sodium (Chloride) 100 mls @ 50 mls/hr IV.SIG UNSCH PRN PRN Reason: For Magnesium 1.2 - 1.6 mg/dL Sodium Phosphate 30 mmol/ (Sodium Chloride) 260 mls @ 42 mls/hr IV.SIG UNSCH PRN PRN Reason: For Phosphorus < 2.5 mg/dL Propofol (Diprivan 1000 Mg/100 Ml Inj) 1,000 mg in 100 mls @ 4.77 mls/hr IV.CONT TITRATE PRN; Protocol PRN Reason: Per Protocol Last Admin: 05/25/18 06:10 Dose: 50 mcg/kg/min, 47.7 mls/hr Fentanyl (Fentanyl 10 Mcg/Ml Premix Drip) 2,500 mcg in 250 mls @ 5 mls/hr IV.SIG TITRATE PRN; Protocol PRN Reason: Per Protocol Last Admin: 05/25/18 03:57 Dose: 350 mcg/hr, 35 mls/hr Dexmedetomidine HCl 1,000 mcg/ (Sodium Chloride) 250 mls @ 8.4 mls/hr IV.CONT TITRATE PRN; Protocol PRN Reason: Per Protocol Last Admin: 05/25/18 07:34 Dose: 2 mcg/kg/hr, 84 mls/hr Ceftazidime/Avibactam 2.5 gm/ (Sodium Chloride) 50 mls @ 25 mls/hr IV.SIG Q8H [facility] Last Infusion: 05/25/18 03:55 Dose: Infused Insulin Aspart (Novolog Insulin Correctional Sugar Inj) 0 unit SQ Q6HR [facility]; Protocol Last Admin: 05/25/18 05:46 Dose: Not Given Labetalol HCl (Trandate Inj) 10 mg IV.PUSH Q1H PRN PRN Reason: Sbp>165, Dbp>90, Hr>65 Lactulose (Lactulose Liq) 30 ml PO DAILY PRN PRN Reason: SEVERE CONSITIPATION Lactulose (Lactulose Liq) 30 ml PO BID [facility] Last Admin: 05/24/18 20:51 Dose: 30 ml Lorazepam (Ativan) 1 mg PO Q6HR [facility] Last Admin: 05/25/18 05:44 Dose: 1 mg Magnesium Oxide (Mag-Ox) 800 mg PO UNSCH PRN PRN Reason: For Magnesium 1.2 - 1.6 mg/dL Melatonin (Melatonin) 10 mg PO HS [facility] Last Admin: 05/24/18 20:52 Dose: 10 mg Methylprednisolone Sodium Succinate (Solumedrol Inj) 20 mg IV.PUSH Q12HR [facility] Last Admin: 05/24/18 20:54 Dose: 20 mg Metoprolol Tartrate (Lopressor) 50 mg PO TID [facility] Last Admin: 05/24/18 17:41 Dose: 50 mg Miscellaneous Medication () 1 each OROPHARYNG 0000,0400,1200,1600 [facility] Last Admin: 05/25/18 04:11 Dose: 1 each Ondansetron HCl (Zofran Inj) 4 mg IV.PUSH Q6H PRN PRN Reason: NAUSEA OR VOMITING Last Admin: 05/20/18 03:13 Dose: 4 mg Oxycodone HCl (Roxicodone Intensol Liq) 20 mg PO Q4H [facility] Last Admin: 05/25/18 05:46 Dose: 20 mg Pantoprazole Sodium (Protonix Inj) 40 mg IV.PUSH DAILY [facility] Last Admin: 05/24/18 09:27 Dose: 40 mg Polyethylene Glycol (Miralax) 17 gm PO BID [facility] Last Admin: 05/24/18 20:53 Dose: 17 gm Potassium Bicarb/Potassium Chloride (K-Lyte Cl Eff) 50 meq PO UNSCH PRN PRN Reason: For Potassium 3.3 - 3.5 mEq/L Last Admin: 05/15/18 17:32 Dose: 50 meq Potassium Bicarbonate (Effer-K) 25 meq NG/OG BID [facility] Last Admin: 05/24/18 20:50 Dose: 25 meq Potassium Phosphate (K-Phos Original) 2,000 mg PO Q4H PRN PRN Reason: Phosphorus Less Than 2.5 mg/dL Potassium Phosphate (K-Phos Original) 2,000 mg PO UNSCH PRN PRN Reason: SEE LABEL COMMENTS Senna/Docusate Sodium (Jemima-Colace) 1 tab PO BID [facility] Last Admin: 05/24/18 20:54 Dose: 1 tab Sennosides (Senokot) 17.2 mg PO Q12H PRN PRN Reason: Moderate Constipation Sodium Chloride (Ns Flush) 2 ml IV.FLUSH BID [facility] Last Admin: 05/24/18 20:53 Dose: 2 ml Sodium Chloride (Ns Flush) 2 ml IV.FLUSH PRN PRN PRN Reason: FLUSH AFTER USING IV ACCESS Last Admin: 05/11/18 08:30 Dose: 2 ml Sodium Chloride (Ns Flush) 0 ml IV.FLUSH DAILY [facility] Last Admin: 05/24/18 09:35 Dose: 2 ml Sodium Chloride (Ns Flush) 0 ml IV.FLUSH PRN PRN PRN Reason: FLUSH AFTER USING IV ACCESS Sodium Chloride (Ns Flush) 0 ml IV.FLUSH PRN PRN PRN Reason: Flush After Blood Draws Sterile Water (Free Water) 250 ml G-TUBE Q12HR [facility] Last Admin: 05/24/18 20:51 Dose: 250 ml Allergies/Adverse Reactions: Allergies Allergy/AdvReac Type Severity Reaction Status Date / Time shellfish derived Allergy Anaphylaxis Verified 04/29/18 13:12 No Known Allergies Allergy Uncoded 04/29/18 13:12 Review of Systems All other systems reviewed negative except as stated in HPI Physical Exam Vital signs: Vital Signs 05/24/18 08:15 05/24/18 08:30 05/24/18 08:45 Temperature Pulse Rate 67 73 72 Respiratory Rate 14 14 14 Blood Pressure 127/65 127/67 131/67 Pulse Oximetry 05/24/18 09:00 05/24/18 09:15 05/24/18 09:30 Temperature Pulse Rate 70 86 82 Respiratory Rate 14 26 H 29 H Blood Pressure 132/66 133/60 139/63 Pulse Oximetry 92 L 05/24/18 09:45 05/24/18 10:00 05/24/18 10:01 Temperature Pulse Rate 86 81 78 Respiratory Rate 29 H 27 H 26 H Blood Pressure 140/60 126/82 Pulse Oximetry 93 L 93 L 92 L 05/24/18 10:15 05/24/18 10:30 05/24/18 10:45 Temperature Pulse Rate 82 84 70 Respiratory Rate 27 H 16 14 Blood Pressure 119/86 115/65 127/69 Pulse Oximetry 93 L 93 L 95 05/24/18 11:00 05/24/18 11:15 05/24/18 11:30 Temperature Pulse Rate 75 79 74 Respiratory Rate 14 14 14 Blood Pressure 120/64 118/63 120/65 Pulse Oximetry 93 L 93 L 94 L 05/24/18 11:45 05/24/18 12:00 05/24/18 12:15 Temperature Pulse Rate 80 67 77 Respiratory Rate 14 14 14 Blood Pressure 112/57 L 117/65 108/60 Pulse Oximetry 92 L 93 L 90 L 05/24/18 12:30 05/24/18 12:45 05/24/18 13:00 Temperature Pulse Rate 75 77 74 Respiratory Rate 14 14 14 Blood Pressure 114/58 L 111/59 L 115/60 Pulse Oximetry 90 L 92 L 92 L 05/24/18 13:15 05/24/18 13:30 05/24/18 13:45 Temperature Pulse Rate 75 71 67 Respiratory Rate 14 14 14 Blood Pressure 116/60 118/60 124/63 Pulse Oximetry 91 L 92 L 93 L 05/24/18 14:00 05/24/18 14:15 05/24/18 14:31 Temperature Pulse Rate 62 76 76 Respiratory Rate 14 14 14 Blood Pressure 128/64 114/63 119/69 Pulse Oximetry 93 L 92 L 92 L 05/24/18 14:45 05/24/18 15:00 05/24/18 15:15 Temperature Pulse Rate 79 80 78 Respiratory Rate 14 14 14 Blood Pressure 110/66 110/66 114/65 Pulse Oximetry 90 L 91 L 90 L 05/24/18 15:30 05/24/18 15:45 05/24/18 16:00 Temperature Pulse Rate 75 82 79 Respiratory Rate 15 17 14 Blood Pressure 113/66 101/57 L 108/59 L Pulse Oximetry 94 L 92 L 96 05/24/18 16:15 05/24/18 16:30 05/24/18 16:52 Temperature Pulse Rate 78 89 Respiratory Rate 14 22 14 Blood Pressure 107/60 103/57 L Pulse Oximetry 99 99 97 05/24/18 20:00 05/24/18 21:40 05/24/18 21:42 Temperature 100.6 F H Pulse Rate 83 Respiratory Rate 14 15 14 Blood Pressure 104/66 Pulse Oximetry 93 L 93 L 05/25/18 00:00 05/25/18 00:19 05/25/18 04:00 Temperature 99.9 F H 100.5 F H Pulse Rate 83 90 Respiratory Rate 14 14 20 Blood Pressure 115/58 L 115/58 L Pulse Oximetry 83 L 93 L 97 05/25/18 04:55 Temperature Pulse Rate Respiratory Rate 14 Blood Pressure Pulse Oximetry 94 L Intake & Output 05/24/18 05/25/18 05/25/18 18:59 06:59 18:59 Intake Total 1600 / 1600 2777.3 / 2777.3 250 / 250 Output Total 1450 / 1450 2400 / 2400 Balance 150 / 150 377.3 / 377.3 250 / 250 Weight 147.2 kg Intake: IV 1600 / 1600 2002.3 / 2002.3 250 / 250 Precedex Inj 1,000 MCG In NS 750 / 750 952.3 / 952.3 250 / 250 Inj 240 ML @ 0.2 MCG/KG/HR 8.4 mls/hr IV.CONT TITRATE PRN Rx#: [id number] Diprivan 1000 mg/100 ml Inj 1, 500 / 500 500 / 500 000 mg In 100 ml @ 5 MCG/KG/MIN 4.77 mls/hr IV.CONT TITRATE PRN Rx#:[id number] Avycaz Inj 2.5 GM In NS Inj 50 100 / 100 50 / 50 ML @ 25 mls/hr IV.SIG Q8H [facility] Rx#:[id number] fentaNYL 10 mcg/mL Premix Drip 250 / 250 500 / 500 2,500 mcg In 250 ml @ 50 MCG/HR 5 mls/hr IV.SIG TITRATE PRN Rx #:[id number] Tube Feeding 525 / 525 Water Bolus Amount 250 / 250 Output: Urine 1450 / 1450 2200 / 2200 Stool 200 / 200 Other: Date of Last Bowel Movement 05/22/18 05/25/18 Narrative: GENERAL: in NAD, obese SKIN: Warm and dry. HEAD: Atraumatic. Normocephalic. NECK: trach CARDIOVASCULAR: Regular rate and rhythm. RESPIRATORY: no accessory muscle use MUSCULOSKELETAL: awake, alert, poor eye contact, follows midline request, ng tube in place, not verbal, ou 3-2mm, face sym, localizes with all 4 ext, in restraints, no clonus, planterflexor PSYCHIATRIC: Calm - Constitutional no acute distress - Routine HEENT Exam Head: Present: normocephalic - Urinary Catheter Management Indwelling Urethral Catheter Cath placed during this visit: yes, but has since been removed by the nurse Reason for continuing: Continue criteria not met Insertion date: 05/16/18 Insertion time: 02:25 Removal date: 05/18/18 Removal time: 17:30 Straight Cath placed during this visit: yes, but has since been removed by the nurse Reason for continuing: Acute urinary retention Insertion date: 04/30/18 Insertion time: 05:00 Removal date: 04/30/18 Removal time: 05:00 Objective Laboratory Results - last 24 hr 05/24/18 05/24/18 05/25/18 12:19 23:05 05:38 POC Glucose 129 H 135 H 128 H Review/Management - Diagnosis (1) Toxic encephalopathy Code(s): G92 - Toxic encephalopathy Status: Acute Current Visit: Yes (2) Respiratory failure Code(s): J96.90 - Respiratory failure, unspecified, unspecified whether with hypoxia or hypercapnia Status: Acute Current Visit: Yes (3) Aspiration pneumonia of both lower lobes Code(s): J69.0 - Pneumonitis due to inhalation of food and vomit Status: Acute Current Visit: Yes - Review/Management Plan: Drug-induced encephalopathy. Possible PCP although exact substance in the bag is not known; father thinks he may have overdosed on Sonata in which case he should slowly wake up CT brain negative mri nml. eeg negative for sz Recommendation alert and follows but poor affect psych following probable LTC d/w demond
[2018-05-25] MEDS: Polyethylene Glycol 3350 17 GM Packet PO SCH ×2 (08:26→20:49)
[2018-05-25] MEDS: Heparin Central Flush 100 UNIT/ML 5 ML Vial IV.FLUSH SCH (08:27)
[2018-05-25] MEDS: Senna/Docusate Sodium 8.6/50 MG Tablet PO SCH ×2 (08:28→20:49)
[2018-05-25] MEDS: Enoxaparin Inj 40 MG/0.4 ML Syringe SQ SCH ×2 (08:28→20:48)
[2018-05-25] MEDS: Pantoprazole Inj 40 MG Vial IV.PUSH SCH (08:28)
[2018-05-25] MEDS: Artificial Tears Opth Drops 15 ML Bottle EACH EYE SCH ×3 (08:29→23:58)
[2018-05-25] MEDS: Chlorhexidine 0.12% Oral Kit 15 ML UDC OROPHARYNG SCH ×2 (08:29→20:47)
[2018-05-25] MEDS: Metoprolol Tartrate 50 MG Tablet PO SCH ×3 (08:29→17:46)
[2018-05-25] MEDS: MethylPREDNISolone Sod Succinate Inj 40 MG/ML Vial IV.PUSH SCH ×2 (08:30→20:47)
[2018-05-25] MEDS: Collagenase Oint 30 GM Tube TOPICAL SCH (08:30)
[2018-05-25] MEDS: Potassium Bicarbonate 25 MEQ Effervescent Tablet NG/OG SCH ×2 (08:30→20:47)
[2018-05-25] MEDS: Erythromycin Ethylsuccinate Susp 400 MG/5ML 100 ML Bottle NG/OG SCH ×3 (08:30→17:46)
--- NOTE | 2018-05-25 09:15 | XR ---
EXAM DATE: 05/25/2018 9:10 AM EST AGE/SEX: 22 years / Male INDICATIONS: Shortness of breath. CLINICAL DATA: This is the patient's subsequent encounter. Patient reports that signs and symptoms h ave been present for 3 weeks and indicates a pain score of Nonresponsive. MEDICAL/SURGICAL HISTORY: None. None. COMPARISON: C, CHEST 1V SINGLE AP, 05/23/2018. . FINDINGS: Tracheostomy and nasogastric tube are stable. A right arm PICC line is noted to loop over the mid SVC , presumably reflecting descent into the azygos vein. Hazy bilateral pleural parenchymal opacities landis ve increased slightly. Cardiac contours are grossly stable. CONCLUSION: PICC line tip remains in the azygos vein Slight interval worsening in aeration. Electronically signed by: Alexis Tomlin MD 05/25/2018 9:14 AM EST
--- NOTE | 2018-05-25 10:59 | P.PNCC ---
Subjective Subjective Remarks/Hospital Course: Patient is approximately 22 years old male obese, was found on the floor by a family member, downtime is unknown. EMS was called, patient was given Narcan with no response, he was intubated on the scene, apparently GCS 3. Found bag of PCP next to the patient. Patient has history of psychiatric disorder ? bipolar disorder and I am told he has attempted suicide in the past. There is also mention about suspicion of ethylene glycol ingestion, but his serum osmolality is 307 his osmolar gap is only 13. Bicarb is 26, ethylene glycol seems unlikely. Ethanol was negative urine drug screen only positive for benzo. I evaluated the patient in the ICU at the [facility]. Patient had a CT of the head which was negative. Rest of the workup unremarkable except for bibasilar atelectasis/aspiration pneumonia. Patient's white count is elevated at 17.1, glucose is 232 lactic acid was 2.8. He received multiple fluid boluses. At this time he is not on any sedation but remains unresponsive no response to deep pain 04/28 Patient remains intubated off sedation unresponsive. Afebrile. 04/29: MRI of the brain revealed no acute intracranial findings. EEG to be performed tomorrow. More arousable and moves all 4 extremities but not following commands. Placed on dexamethasone E drip. 2 feeds will be restarted 04/30: T-max 101.4. Currently afebrile. No bowel movement since admission. Arousable and follows simple commands late last night but currently on sedation for agitation. Increased FiO2 noted. Will attempt to gently diurese and continue antibiotics for pansensitive staph aureus/group a beta strep sputum 05/01 Patient is sedated with Fentanyl, Diprivan and intubated. T:101.1 at 5am. Placed on APRV overnight. 05/02 Patient is sedated with Diprivan and Fentanyl drips. Tmax 101.3, on PC/AC with PEEP:12, FIO2 80%, IP:30 05/03 Patient is heavily sedated with Diprivan, Fentanyl and Versed . On PC/AC with PEEP: 14 and FIO2 100$ sats 92%, CXR yesterday showed diffuse b/l pulm infiltrates, started on Flolan nebs. Had Tmax 102.6 last night. 05/04 Patient was placed on rotoprone bed yesterday sedated with Diprivan, Versed and Fentanyl infusion and on neuromuscular blockade( Nimbex) On PC/AC His FIO2 requirements is better now on FIO2:50% from 100% with PEEP:14. T:102.6 05/05 Patient remains intubated and sedated on Bumex drip 0.5mg/hr, T:99.7 at 3am. On PC/AC with PEEP:1 and FIO2 60%- sats 95%. 05/06 Patient remains sedated and intubated on rotoprone bed with improvements in his oxygenation. Now on PC/AC with PEEP:10, FIO2 40%. Afebrile. On Bumex drip 0.5mg/hr. 05/07 Patient remains on rotoprone bed sedated and on Nimbex drip. He is also on Bumex drip 0.5mg/hr with good urine output . 05/08 Patient remains sedated and intubated. On Flolan, and Bumex drip. Afebrile. 05/09 Patient desat overnight now on PC/AC with PEEP:10 and FIO2 100% sats 96%. Had T: 100.4 at midnight. Sputum cx 05/07 GNR. Remains sedated on Flolan and Bumex drip. 05/10: Resting in bed. Remains on PC/AC rate increased to 16. FiO2 80%. Low- grade fevers noted. Remains on epoprostenol and bumetanide drips. Hypertension noted. Aspirated this a.m. and so discontinued tube feeding. We will start PPN today. 05/11 Patient remains on rotoprone bed, sedated and intubated. Afebrile. On PC/ AC with PEEP;10 and FIO2 55%.On Flolan and Bumex drip 0.5mg/hr 05/12 Remains sedated, intubated and on Rotoprone bed. PC/AC with PEEP: 12 and FIO2 70% sats 96%. T:100.4 last night. On Flolan and Bumex drip. 05/14: Off rotaprone since yesterday, nimbex discontinued, PEEP 14 and FiO2 50% with sats in mid 90s. Still on flolan. 05/15: No acute issues overnight, plan is to wean PEEP slowly over the weekend for tracheostomy on Friday 05/18. 05/16: Flolan weaned yesterday, tolerated well, will continue to wean today. PEEP down to 10. O2 sats low to mid 90s. 05/17: TFs held overnight for high residuals; KUB showed Dobhoff tube in distal stomach with NGT in proximal stomach. Will hold for now, will need to be NPO at midnight for hopeful trach tomorrow. Continue PPN for now. 05/18: Patient had a desat event last night and had to have PEEP increased to 14. Pulse ox probe changed this morning and noted to be 100, now weaned back down to PEEP 10 and FiO2 60%. Will continue to wean FiO2. Flolan off since yesterday. Trach today or tomorrow. 05/19: Trach today. PEEP 8, FiO2 40%. No overnight events. 05/20: Trach performed in OR yesterday afternoon, no immediate complications, sent for MRI C spine this morning by neurology to evaluate for myelopathy which showed no acute abnormalities. Sedation weaned, patient now awake and alert, follows commands, mouths words. 05/21: Currently remains intubated sedated. Requiring heavy sedation for vent synchrony. Currently on propofol fentanyl and Versed infusions. Still wakes up and weakly follows. We will lighten sedation attempt CPAP and possible T- piece 2-4 hours today 05/22: Currently wide awake on the vent despite continuous sedation. Mother requests restarting Wellbutrin which I have ordered. Did not tolerate T-piece yesterday. Attempt again today 05/23: Remains intubated currently heavily sedated as the patient showed violent behavior yesterday. Threatening to hit the staff. Required heavy sedation since then. Remains on propofol fentanyl and Precedex now. Wakes up easily follows commands. Mother confirms history of bipolar disorder (Dr. Kaye was psychiatrist). I have requested psych consult to assist with management of agitation/violent behavior. Hold Wellbutrin which was started yesterday 05/24 appears comfortable now on the vent, however was very agitated overnight requiring increased sedation and caused severe hypoxia currently FiO2 is at 80% . Chest x-ray is pending. I will start scheduled Haldol 2 mg IV every 6 hours per psych recommendation. Patient states that he has night terrors which causes him to be agitated at night I will discuss with with psychiatry and start appropriate treatments 05/25: Remains heavily sedated remains heavily sedated for ventilator synchrony as the patient gets very agitated and hypoxic. They had to go up on FiO2 again currently 80%. I have increased the PEEP to 14. Chest x-ray shows some pulmonary vascular congestion and low lung volumes. Hypoxia most likely from severe atelectasis. I will increase diuresis to achieve negative balance Objective Vital Signs / I&O: Vital Signs 05/24/18 11:00 05/24/18 11:15 05/24/18 11:30 Temperature Pulse Rate 75 79 74 Respiratory Rate 14 14 14 Blood Pressure 120/64 118/63 120/65 Pulse Oximetry 93 L 93 L 94 L 05/24/18 11:45 05/24/18 12:00 05/24/18 12:15 Temperature Pulse Rate 80 67 77 Respiratory Rate 14 14 14 Blood Pressure 112/57 L 117/65 108/60 Pulse Oximetry 92 L 93 L 90 L 05/24/18 12:30 05/24/18 12:45 05/24/18 13:00 Temperature Pulse Rate 75 77 74 Respiratory Rate 14 14 14 Blood Pressure 114/58 L 111/59 L 115/60 Pulse Oximetry 90 L 92 L 92 L 05/24/18 13:15 05/24/18 13:30 05/24/18 13:45 Temperature Pulse Rate 75 71 67 Respiratory Rate 14 14 14 Blood Pressure 116/60 118/60 124/63 Pulse Oximetry 91 L 92 L 93 L 05/24/18 14:00 05/24/18 14:15 05/24/18 14:31 Temperature Pulse Rate 62 76 76 Respiratory Rate 14 14 14 Blood Pressure 128/64 114/63 119/69 Pulse Oximetry 93 L 92 L 92 L 05/24/18 14:45 05/24/18 15:00 05/24/18 15:15 Temperature Pulse Rate 79 80 78 Respiratory Rate 14 14 14 Blood Pressure 110/66 110/66 114/65 Pulse Oximetry 90 L 91 L 90 L 05/24/18 15:30 05/24/18 15:45 05/24/18 16:00 Temperature Pulse Rate 75 82 79 Respiratory Rate 15 17 14 Blood Pressure 113/66 101/57 L 108/59 L Pulse Oximetry 94 L 92 L 96 05/24/18 16:15 05/24/18 16:30 05/24/18 16:52 Temperature Pulse Rate 78 89 Respiratory Rate 14 22 14 Blood Pressure 107/60 103/57 L Pulse Oximetry 99 99 97 05/24/18 20:00 05/24/18 21:40 05/24/18 21:42 Temperature 100.6 F H Pulse Rate 83 Respiratory Rate 14 15 14 Blood Pressure 104/66 Pulse Oximetry 93 L 93 L 05/25/18 00:00 05/25/18 00:19 05/25/18 04:00 Temperature 99.9 F H 100.5 F H Pulse Rate 83 90 Respiratory Rate 14 14 20 Blood Pressure 115/58 L 115/58 L Pulse Oximetry 83 L 93 L 97 05/25/18 04:55 05/25/18 09:07 Temperature Pulse Rate Respiratory Rate 14 14 Blood Pressure Pulse Oximetry 94 L 100 Intake & Output 05/24/18 05/25/18 05/25/18 18:59 06:59 18:59 Intake Total 1600 / 1600 2777.3 / 2777.3 600 / 600 Output Total 1450 / 1450 2400 / 2400 Balance 150 / 150 377.3 / 377.3 600 / 600 Weight 147.2 kg Intake: IV 1600 / 1600 2002.3 / 2001.3 600 / 600 Precedex Inj 1,000 MCG In NS 750 / 750 952.3 / 952.3 500 / 500 Inj 240 ML @ 0.2 MCG/KG/HR 8.4 mls/hr IV.CONT TITRATE PRN Rx#: [id number] Diprivan 1000 mg/100 ml Inj 1, 500 / 500 500 / 500 100 / 100 000 mg In 100 ml @ 5 MCG/KG/MIN 4.77 mls/hr IV.CONT TITRATE PRN Rx#:[id number] Avycaz Inj 2.5 GM In NS Inj 50 100 / 100 50 / 50 ML @ 25 mls/hr IV.SIG Q8H DARRION Rx#:[id number] fentaNYL 10 mcg/mL Premix Drip 250 / 250 500 / 500 2,500 mcg In 250 ml @ 50 MCG/HR 5 mls/hr IV.SIG TITRATE PRN Rx #:[id number] Tube Feeding 525 / 525 Water Bolus Amount 250 / 250 Output: Urine 1450 / 1450 2200 / 2200 Stool 200 / 200 Other: Date of Last Bowel Movement 05/22/18 05/25/18 Result Diagrams: 05/23/18 04:15 05/23/18 04:15 Objective Remarks: GENERAL: Lying in bed sedated but wide awake following commands. SKIN: Warm and dry HEAD: NCAT NECK: Supple, tracheostomy present, clean and dry CARDIOVASCULAR: Regular rate and rhythm in 80s RESPIRATORY: Equal breath sounds bilaterally. PEEP increased to 14, FiO2 at 80% GASTROINTESTINAL: Abdomen obese, soft, non-tender in all quadrants MUSCULOSKELETAL: Trace peripheral edema, improving Neuro: Ventilated via tracheostomy, sedated but wide awake follows commands 4 out of 5 power in all extremities. Attempts to mouth words, sometimes able to vocalize (Gets air around the cuff) Assessment and Plan - Assessment and Plan Plan: NEURO/PSYCH: Acute metabolic encephalopathy Suspected PCP overdose Suspected ethylene glycol overdose Suicide attempt Critical illness myopathy Bipolar disorder -Requiring heavy sedation for vent synchrony with propofol, fentanyl and Precedex. -IV Haldol 2 mg every 6 hours per psych recommendation. Increase to 3 mg IV q6 -Delirium precautions * Lights on/ shades up during the day, limit night time disruptions, frequent reorientation, patient's parents brought his glasses in from home and he should be provided with these whenever awake -Wellbutrin held per psych rec -CT of the head negative. MRI of brain negative. MRI C spine negative. -EEG 05/18, 04/30, 04/28 with no epileptic activity RESP: Acute hypoxemic respiratory failure-now worsening Bilateral atelectasis ARDS resolving Bibasilar aspiration pneumonitis Tobacco abuse -Continue with vent support keep sats >92% -Desaturated overnight again currently on 10 of PEEP FiO2 80%. PEEP increased to 14% -Chest x-ray shows low lung volumes and pulmonary vascular congestion -s/p tracheostomy, POD #6. -Cannot do SBT secondary to severe hypoxia -Ventilator bundle. Bronchodilators (ipratropium/albuterol, Q4), Solumedrol reduced to 20mg Q12-05/21/2018 -s/p bronch 05/02 thick secretions suctioned to clear. No evidence of EBL or bleeding. -Nicotine patch CV: Essential hypertension -Monitor HR and BP keep MAP>65mmHg -On Lopressor 50mg TID. Continue clonidine as above -Echo 04/28: EF 60-65%, PASP 36mmHg GI: Elevated ALT Hypoalbuminemia - IV famotidine. -Docusate serum/senna 1 tablet twice daily for bowel regimen. Lactulose 30 cc twice daily and MiraLAX 17 g twice daily. Renal/FEN/: -Monitor renal function, I/O's, electrolytes replacement as needed -Tube feeds to goal -Increase Bumex to 2 mg IV every 6, ID: MSSA/group A beta strep pneumonia Superadded Enterobacter/Klebsiella pneumonia ESBL Abx per ID- continue Merrem, micafungin, vanco 05/07 Sputm cx: Kleb pneumonia, Enterobacter. Repeat cultures from 05/13 have no growth at 5 days, another set of cultures sent 05/18 and pending 04/27 Sputum: Staph aureus/MSSA and beta strep not group A. 05/03 BC: Coag neg staph 05/02 bronch cx: Staph Aureus HEME: Normocytic anemia Leukocytosis-- resolved -Anemia of chronic illness, stable ENDO/FEN: Hyperglycemia -Electrolyte replacement per protocol -Sliding scale insulin -Continue solumedrol q12 MSK: Myopathy of critical illness, severe deconditioning PT/ OT evals appreciated, multipodus boot ordered, patient may benefit from wrist splints/ passive ROM exercises, now awake and alert and can benefit from communicative aids Up to stretcher chair daily PROPH: GI prophylaxis- On Pepcid DVT prophylaxis- Lovenox 40mg SQ BID Doppler US LE: thrombosis of the posterior tibial vein within the calf bilaterally. Repeat duplex on 05/18 shows persistent LLE below the knee DVT which has not propagated proximally. No RLE DVT seen. Case management consulted to help with discharge planning. Patient will need aggressive PT/ OT and will likely need prolonged wean from ventilator given extent of physical deconditioning. LINES: -PICC placed on 05/08/18 OVERALL: Patient significantly improved over the past week. OOB to chair start aggressively weaning vent, advance TFs, dispo planning. CCT 35. Currently more critical due to severe hypoxia requiring FiO2 80% and PEEP 14. Multiple vent adjustments required to maintain adequate oxygenation, IV diuresis increased. Minimize fluid intake. At this time not stable to transfer to LTAC due to severe hypoxia. Can transfer once Fio2 requirement improves and psychiatric clears for transfer to
--- NOTE | 2018-05-25 15:39 | P.PNID ---
Subjective Remarks: not doing good con to remain on vent high vent reqiorements up to 80% no secretions no fever\ highly resistant ESBL +/K[facility] Kleb, Serratia Antibiotics: avicaz Lines: PICC Past Medical History: reviewed. Allergies/Adverse Reactions: Allergies shellfish derived Allergy (Verified 04/29/18 13:12) Anaphylaxis No Known Allergies Allergy (Uncoded 04/29/18 13:12) Objective Vital Signs 05/24/18 15:30 05/24/18 15:45 05/24/18 16:00 Temperature Pulse Rate 75 82 79 Respiratory Rate 15 17 14 Blood Pressure 113/66 101/57 L 108/59 L Pulse Oximetry 94 L 92 L 96 05/24/18 16:15 05/24/18 16:30 05/24/18 16:52 Temperature Pulse Rate 78 89 Respiratory Rate 14 22 14 Blood Pressure 107/60 103/57 L Pulse Oximetry 99 99 97 05/24/18 20:00 05/24/18 21:40 05/24/18 21:42 Temperature 100.6 F H Pulse Rate 83 Respiratory Rate 14 15 14 Blood Pressure 104/66 Pulse Oximetry 93 L 93 L 05/25/18 00:00 05/25/18 00:19 05/25/18 04:00 Temperature 99.9 F H 100.5 F H Pulse Rate 83 90 Respiratory Rate 14 14 20 Blood Pressure 115/58 L 115/58 L Pulse Oximetry 83 L 93 L 97 05/25/18 04:08 05/25/18 04:15 05/25/18 04:30 Temperature Pulse Rate 79 76 79 Respiratory Rate 16 14 14 Blood Pressure 104/59 L 111/57 L 114/58 L Pulse Oximetry 94 L 96 94 L 05/25/18 04:45 05/25/18 04:55 05/25/18 05:00 Temperature Pulse Rate 80 84 Respiratory Rate 14 14 14 Blood Pressure 110/55 L 107/59 L Pulse Oximetry 91 L 94 L 95 05/25/18 05:15 05/25/18 05:30 05/25/18 05:45 Temperature Pulse Rate 82 83 82 Respiratory Rate 14 14 14 Blood Pressure 106/58 L 106/55 L 104/55 L Pulse Oximetry 94 L 95 95 05/25/18 06:00 05/25/18 06:15 05/25/18 06:30 Temperature Pulse Rate 78 84 84 Respiratory Rate 14 14 48 H Blood Pressure 109/59 L 108/57 L 109/64 Pulse Oximetry 97 97 94 L 05/25/18 06:45 05/25/18 07:00 05/25/18 07:15 Temperature Pulse Rate 83 84 91 H Respiratory Rate 14 14 21 Blood Pressure 98/55 L 96/55 L 102/59 L Pulse Oximetry 95 93 L 95 05/25/18 07:30 05/25/18 07:45 05/25/18 08:00 Temperature Pulse Rate 81 81 81 Respiratory Rate 14 14 14 Blood Pressure 103/59 L 107/58 L 105/57 L Pulse Oximetry 94 L 94 L 94 L 05/25/18 08:15 05/25/18 08:30 05/25/18 09:00 Temperature 99.0 F Pulse Rate 80 82 86 Respiratory Rate 14 14 18 Blood Pressure 105/58 L 104/58 L 110/71 Pulse Oximetry 95 94 L 94 L 05/25/18 09:07 05/25/18 09:35 05/25/18 10:00 Temperature Pulse Rate 95 H 89 Respiratory Rate 14 14 19 Blood Pressure 118/57 L Pulse Oximetry 100 93 L 94 L 05/25/18 10:01 05/25/18 10:31 05/25/18 11:00 Temperature Pulse Rate 90 89 75 Respiratory Rate 22 18 18 Blood Pressure 111/55 L 100/74 109/75 Pulse Oximetry 93 L 89 L 86 L 05/25/18 11:31 05/25/18 12:00 05/25/18 12:31 Temperature 100.5 F H Pulse Rate 80 82 79 Respiratory Rate 17 26 H 28 H Blood Pressure 106/57 L 106/59 L 122/78 Pulse Oximetry 92 L 97 05/25/18 13:01 05/25/18 13:30 05/25/18 14:00 Temperature Pulse Rate 94 H 97 H 85 Respiratory Rate 13 14 14 Blood Pressure 114/70 112/73 113/70 Pulse Oximetry 93 L 94 L 93 L 05/25/18 14:30 05/25/18 14:57 Temperature Pulse Rate 84 Respiratory Rate 20 14 Blood Pressure 114/78 Pulse Oximetry 96 97 Intake & Output 05/24/18 05/25/18 05/25/18 18:59 06:59 18:59 Intake Total 1600 / 1600 2777.3 / 2777.3 1250 / 1250 Output Total 1450 / 1450 2400 / 2400 Balance 150 / 150 377.3 / 377.3 1250 / 1250 Weight 147.2 kg Intake: IV 1600 / 1600 2001.3 / 2001.3 1250 / 1250 Precedex Inj 1,000 MCG In NS 750 / 750 952.3 / 952.3 750 / 750 Inj 240 ML @ 0.2 MCG/KG/HR 8.4 mls/hr IV.CONT TITRATE PRN Rx#: [id number] Diprivan 1000 mg/100 ml Inj 1, 500 / 500 500 / 500 200 / 200 000 mg In 100 ml @ 5 MCG/KG/MIN 4.77 mls/hr IV.CONT TITRATE PRN Rx#:[id number] Avycaz Inj 2.5 GM In NS Inj 50 100 / 100 50 / 50 50 / 50 ML @ 25 mls/hr IV.SIG Q8H DARRION Rx#:[id number] fentaNYL 10 mcg/mL Premix Drip 250 / 250 500 / 500 250 / 250 2,500 mcg In 250 ml @ 50 MCG/HR 5 mls/hr IV.SIG TITRATE PRN Rx #:[id number] Tube Feeding 525 / 525 Water Bolus Amount 250 / 250 Output: Urine 1450 / 1450 2200 / 2200 Stool 200 / 200 Other: Date of Last Bowel Movement 05/22/18 05/25/18 05/25/18 05/18/18 12:40 Blood - Peripheral Aerobic Blood Culture - Final No growth in 5 days 05/18/18 12:40 Blood - Peripheral Anaerobic Blood Culture - Final No growth in 5 days 05/18/18 12:35 Blood - Peripheral Aerobic Blood Culture - Final No growth in 5 days 05/18/18 12:35 Blood - Peripheral Anaerobic Blood Culture - Final No growth in 5 days 05/18/18 11:45 Sputum - Endotracheal Gram Stain - Final 05/18/18 11:45 Sputum - Endotracheal Sputum Culture - Final Serratia marcescens Klebsiella pneumoniae ESBL pos Lab - Chemistry Results 05/23/18 05/23/18 05/24/18 17:16 23:15 05:30 POC Glucose 129 H 162 H 142 H 05/24/18 05/24/18 05/25/18 12:19 23:05 05:38 POC Glucose 129 H 135 H 128 H 05/25/18 12:54 POC Glucose 145 H Imaging: ITS Impressions Head CT 04/27/18 11:31 CONCLUSION: 1. Negative CT Head non contrast. . Abdomen/Pelvis CT 04/27/18 11:35 CONCLUSION: 1. Extensive atelectasis in both lower lobes. 2. The Stone catheter needs to be deflated and advanced into the bladder. The catheter is at the level of the prosthetic urethra. 3. No findings to indicate a bowel obstruction are seen. No free air free fluid is identified. Chest CT 04/27/18 11:35 CONCLUSION: 1. Consolidation both posterior lungs with air bronchograms. This could represent bilateral pneumonia or aspiration. Cervical Spine CT 04/27/18 11:36 CONCLUSION: 1. Negative trauma study. Lumbar Spine CT 04/27/18 11:59 CONCLUSION: 1. Negative for acute process 2. There is no evidence for vertebral compression. Head MRI 04/29/18 07:05 CONCLUSION: 1. Negative MRI of the brain. 2. Inflammatory process cannot be entirely excluded. 3. There are no infarcts identified. Abdomen X-Ray 05/17/18 00:00 CONCLUSION: No evidence of bowel obstruction. Dobbhoff tube is seen within the stomach and the proximal port of the nasogastric tube is within the proximal stomach. Venous Doppler Study 05/18/18 00:00 CONCLUSION: 1. Left lower extremity DVT involving the posterior tibial vein from the mid calf to the ankle. 2. No other evidence of DVT at or above the knee in either lower extremity. Cervical Spine MRI 05/20/18 10:29 CONCLUSION: 1. Straightening of the cervical spine. Otherwise, unremarkable exam. Chest X-Ray 05/25/18 08:44 CONCLUSION: PICC line tip remains in the azygos vein Slight interval worsening in aeration. Physical Exam: GENERAL: Obese male, on the vent, awake, responding, NAD SKIN: Cool and dry. no rash. HEAD: Atraumatic. Normocephalic. EYES: Face mildly edematous. NO icterus, no injection ENT: moist mucosae NECK: Trach in place CARDIOVASCULAR: RRR, no murmurs RESPIRATORY: Coarse BS mikhail, decreased at bases GASTROINTESTINAL: soft abdomen, obese, not tender MUSCULOSKELETAL: Extremities without clubbing, cyanosis, resolution of edema. NEUROLOGICAL: awake, alert, communicates PSYCHIATRIC: calm : Stone in place ,urine clear LINE: NO evidence of infection Assessment and Plan - Plan Sepsis ongoing possible new. PNA, probably aspiration Acute VDRF on rotaprone bed. MSSA pneumonia. GNR pneumonia: Kleb, Enterobacter - now with different GNR in sputum Morbid obesity with likely obesity- hypoventilation sd Coag neg staph bacteremia, low grade doubt clin significance New fever Much worsening respiratory status CXR worsening goes along with clin deteriorations On going PNA- now with MDRO (ESBL/KPC) Recs: cont Avycaz add zyvox rechk sputum clx D/W RN
[2018-05-25 16:12] LABS: Alanine Aminotransferase 117 U/L (9-52); Albumin 3.1 g/dL (3.4-5.0); Alkaline Phosphatase 83 U/L (45-117); Anion Gap 10 meq/L (5-15); Aspartate Aminotransferase 25 U/L (15-39); Blood Urea Nitrogen 21 mg/dL (7-18); Calcium 9.2 mg/dL (8.5-10.1); Carbon Dioxide 27.5 meq/L (21.0-32.0); Chloride 101 meq/L (98-107); Glomerular Filtration Rate Greater Than 89 mL/min (>89); Glucose,Random 167 mg/dL (74-106); Sodium 138 meq/L (136-145); Total Protein 7.6 g/dL (6.4-8.2)
[2018-05-25] MEDS: Melatonin 5 MG Tablet PO SCH (20:49)
[2018-05-26] MEDS: Insulin NovoLOG Aspart Correctional Sugar Inj SQ SCH ×5 (00:44→23:30)
[2018-05-26] MEDS: Ceftazidime/Avibactam Inj 2.5 GM in Sodium Chlor 0.9% Inj 50 ML IV.SIG SCH ×2 (01:19→08:17)
[2018-05-26] MEDS: Dexmedetomidine Inj 1,000 MCG in Sodium Chlor 0.9% Inj 240 ML IV.CONT PRN ×7 (01:19→21:40)
[2018-05-26] MEDS: Propofol 1000 mg/100 ml Inj 1,000 MG/100 ML BOTTLE IV.CONT PRN ×10 (01:41→23:18)
[2018-05-26] MEDS: Oral Hygiene Kit OROPHARYNG SCH ×4 (03:17→23:30)
[2018-05-26] MEDS: Haloperidol Inj 5 MG/ML Ampul IV.PUSH SCH ×4 (04:12→23:28)
[2018-05-26] MEDS: fentaNYL 10 mcg/mL Premix Drip 2,500 MCG/250 ML BAG IV.SIG PRN ×2 (04:38→13:30)
[2018-05-26] MEDS: LORazepam 0.5 MG Tablet PO SCH ×3 (05:47→18:06)
[2018-05-26] MEDS: Polyethylene Glycol 3350 17 GM Packet PO SCH ×2 (08:13→21:42)
[2018-05-26] MEDS: Metoprolol Tartrate 50 MG Tablet PO SCH ×3 (08:15→18:06)
[2018-05-26] MEDS: Senna/Docusate Sodium 8.6/50 MG Tablet PO SCH ×2 (08:15→21:41)
[2018-05-26] MEDS: Pantoprazole Inj 40 MG Vial IV.PUSH SCH (08:16)
[2018-05-26] MEDS: Chlorhexidine 0.12% Oral Kit 15 ML UDC OROPHARYNG SCH ×2 (08:17→21:40)
[2018-05-26] MEDS: Collagenase Oint 30 GM Tube TOPICAL SCH (08:17)
[2018-05-26] MEDS: Artificial Tears Opth Drops 15 ML Bottle EACH EYE SCH ×3 (08:17→23:30)
[2018-05-26] MEDS: MethylPREDNISolone Sod Succinate Inj 40 MG/ML Vial IV.PUSH SCH ×2 (08:17→21:42)
[2018-05-26] MEDS: Erythromycin Ethylsuccinate Susp 400 MG/5ML 100 ML Bottle NG/OG SCH ×3 (08:17→18:06)
[2018-05-26] MEDS: Potassium Bicarbonate 25 MEQ Effervescent Tablet NG/OG SCH ×2 (08:17→21:41)
[2018-05-26] MEDS: Enoxaparin Inj 40 MG/0.4 ML Syringe SQ SCH ×2 (08:18→21:42)
--- NOTE | 2018-05-26 11:13 | P.PNGS ---
Subjective Interval history: Up to chair Mouths "My butt hurts." Physical Exam Vital signs: Vital Signs 05/25/18 11:31 05/25/18 12:00 05/25/18 12:31 Temperature 100.5 F H Pulse Rate 80 82 79 Respiratory Rate 17 26 H 28 H Blood Pressure 106/57 L 106/59 L 122/78 Pulse Oximetry 92 L 97 05/25/18 13:01 05/25/18 13:30 05/25/18 14:00 Temperature Pulse Rate 94 H 97 H 85 Respiratory Rate 13 14 14 Blood Pressure 114/70 112/73 113/70 Pulse Oximetry 93 L 94 L 93 L 05/25/18 14:30 05/25/18 14:57 05/25/18 15:14 Temperature 100.0 F H Pulse Rate 84 94 H Respiratory Rate 20 14 19 Blood Pressure 114/78 117/66 Pulse Oximetry 96 97 97 05/25/18 15:53 05/25/18 16:00 05/25/18 16:30 Temperature Pulse Rate 94 H 88 80 Respiratory Rate 16 15 14 Blood Pressure 115/54 L 111/58 L 105/56 L Pulse Oximetry 91 L 91 L 92 L 05/25/18 17:01 05/25/18 17:31 05/25/18 18:00 Temperature Pulse Rate 72 97 H 84 Respiratory Rate 43 H 16 15 Blood Pressure 153/73 H 100/53 L 104/57 L Pulse Oximetry 97 92 L 93 L 05/25/18 18:30 05/25/18 19:00 05/25/18 19:30 Temperature Pulse Rate 83 79 85 Respiratory Rate 14 14 14 Blood Pressure 105/57 L 115/58 L 105/51 L Pulse Oximetry 93 L 93 L 91 L 05/25/18 20:00 05/25/18 20:05 05/25/18 20:30 Temperature 100 F H Pulse Rate 86 84 Respiratory Rate 14 14 15 Blood Pressure 98/56 L 100/57 L Pulse Oximetry 92 L 91 L 88 L 05/25/18 21:00 05/25/18 21:30 05/25/18 22:00 Temperature Pulse Rate 84 86 85 Respiratory Rate 14 14 14 Blood Pressure 102/58 L 96/53 L 96/58 L Pulse Oximetry 92 L 93 L 91 L 05/25/18 22:20 05/25/18 22:39 05/25/18 23:00 Temperature Pulse Rate 85 83 Respiratory Rate 14 14 15 Blood Pressure 115/58 L 113/63 Pulse Oximetry 94 L 92 L 91 L 05/25/18 23:30 05/26/18 00:00 05/26/18 00:30 Temperature Pulse Rate 87 87 84 Respiratory Rate 14 14 14 Blood Pressure 105/62 104/57 L 107/62 Pulse Oximetry 89 L 92 L 94 L 05/26/18 01:00 05/26/18 01:25 05/26/18 01:30 Temperature 101.4 F H Pulse Rate 85 87 Respiratory Rate 14 14 14 Blood Pressure 106/59 L 104/57 L Pulse Oximetry 94 L 93 L 05/26/18 01:40 05/26/18 01:54 05/26/18 01:55 Temperature 101 F H Pulse Rate Respiratory Rate 14 14 Blood Pressure Pulse Oximetry 93 L 05/26/18 02:00 05/26/18 02:30 05/26/18 03:00 Temperature Pulse Rate 82 82 82 Respiratory Rate 14 14 14 Blood Pressure 108/62 107/61 113/63 Pulse Oximetry 93 L 93 L 93 L 05/26/18 03:30 05/26/18 04:00 05/26/18 04:28 Temperature 102 F H 101.5 F H Pulse Rate 80 80 Respiratory Rate 14 12 14 Blood Pressure 115/64 116/63 Pulse Oximetry 93 L 93 L 94 L 05/26/18 04:29 05/26/18 04:30 05/26/18 05:23 Temperature Pulse Rate 87 Respiratory Rate 13 14 Blood Pressure 119/59 L Pulse Oximetry 94 L 05/26/18 05:47 05/26/18 06:02 05/26/18 08:46 Temperature Pulse Rate Respiratory Rate 14 14 14 Blood Pressure Pulse Oximetry 92 L Intake & Output 05/25/18 05/26/18 05/26/18 18:59 06:59 18:59 Intake Total 2714 / 2714 2800 / 2800 350 / 350 Output Total 1500 / 1500 100 / 100 Balance 1214 / 1214 2700 / 2700 350 / 350 Weight 149 kg Intake: IV 2099 / 2099 2000 / 1999 350 / 350 Precedex Inj 1,000 MCG In NS 1250 / 1250 750 / 750 250 / 250 Inj 240 ML @ 0.2 MCG/KG/HR 8.4 mls/hr IV.CONT TITRATE PRN Rx#: [id number] Diprivan 1000 mg/100 ml Inj 1, 200 / 200 400 / 400 100 / 100 000 mg In 100 ml @ 5 MCG/KG/MIN 4.77 mls/hr IV.CONT TITRATE PRN Rx#:[id number] Avycaz Inj 2.5 GM In NS Inj 50 100 / 100 50 / 50 ML @ 25 mls/hr IV.SIG Q8H [facility] Rx#:[id number] Zyvox 600 mg Premix 300 ML @ 300 / 300 300 / 300 300 mls/hr IV.SIG Q12H [facility] Rx#: [id number] fentaNYL 10 mcg/mL Premix Drip 250 / 250 500 / 500 2,500 mcg In 250 ml @ 50 MCG/HR 5 mls/hr IV.SIG TITRATE PRN Rx #:[id number] Oral 0 / 0 Tube Feeding 364 / 364 550 / 550 Water Bolus Amount 250 / 250 250 / 250 Output: Urine 1500 / 1500 Stool 100 / 100 Other: # Voids 4 # Incontinent Voids 7 Date of Last Bowel Movement 05/25/18 05/26/18 Narrative: Alert and awake Trach present without complications; no drainage; sutures removed NGT in place with TF - Urinary Catheter Management Indwelling Urethral Catheter Cath placed during this visit: yes, but has since been removed by the nurse Reason for continuing: Continue criteria not met Insertion date: 05/16/18 Insertion time: 02:25 Removal date: 05/18/18 Removal time: 17:30 Straight Cath placed during this visit: yes, but has since been removed by the nurse Reason for continuing: Acute urinary retention Insertion date: 04/30/18 Insertion time: 05:00 Removal date: 04/30/18 Removal time: 05:00 Results - Labs 05/23/18 04:15 05/25/18 14:52 Laboratory Results - last 24 hr 05/25/18 05/25/18 05/25/18 12:54 14:52 17:52 Sodium 138 Potassium 4.0 Chloride 101 Carbon Dioxide 27.5 Anion Gap 10 BUN 21 H Creatinine 0.72 Estimated GFR Greater than 89 POC Glucose 145 H 149 H Random Glucose 167 H Calcium 9.2 Total Bilirubin 0.8 AST 25 ALT 117 H Alkaline Phosphatase 83 Total Protein 7.6 D Albumin 3.1 L 05/26/18 05/26/18 00:40 05:45 Sodium Potassium Chloride Carbon Dioxide Anion Gap BUN Creatinine Estimated GFR POC Glucose 168 H 136 H Random Glucose Calcium Total Bilirubin AST ALT Alkaline Phosphatase Total Protein Albumin - Imaging Imaging: ITS Impressions Head CT 04/27/18 11:31 CONCLUSION: 1. Negative CT Head non contrast. . Abdomen/Pelvis CT 04/27/18 11:35 CONCLUSION: 1. Extensive atelectasis in both lower lobes. 2. The Stone catheter needs to be deflated and advanced into the bladder. The catheter is at the level of the prosthetic urethra. 3. No findings to indicate a bowel obstruction are seen. No free air free fluid is identified. Chest CT 04/27/18 11:35 CONCLUSION: 1. Consolidation both posterior lungs with air bronchograms. This could represent bilateral pneumonia or aspiration. Cervical Spine CT 04/27/18 11:36 CONCLUSION: 1. Negative trauma study. Lumbar Spine CT 04/27/18 11:59 CONCLUSION: 1. Negative for acute process 2. There is no evidence for vertebral compression. Head MRI 04/29/18 07:05 CONCLUSION: 1. Negative MRI of the brain. 2. Inflammatory process cannot be entirely excluded. 3. There are no infarcts identified. Abdomen X-Ray 05/17/18 00:00 CONCLUSION: No evidence of bowel obstruction. Dobbhoff tube is seen within the stomach and the proximal port of the nasogastric tube is within the proximal stomach. Venous Doppler Study 05/18/18 00:00 CONCLUSION: 1. Left lower extremity DVT involving the posterior tibial vein from the mid calf to the ankle. 2. No other evidence of DVT at or above the knee in either lower extremity. Cervical Spine MRI 05/20/18 10:29 CONCLUSION: 1. Straightening of the cervical spine. Otherwise, unremarkable exam. Chest X-Ray 05/25/18 08:44 CONCLUSION: PICC line tip remains in the azygos vein Slight interval worsening in aeration. Assessment and Plan - Assessment (1) Respiratory failure Code(s): J96.90 - Respiratory failure, unspecified, unspecified whether with hypoxia or hypercapnia Status: Acute Plan: 22 year old male with overdose; aspiration; ventilator dependent respiratory failure in need of tracheostomy tube placement. -S/p trach placement -Continue routine trach care -Vent per CCM -Sutures removed -GS will sign off; please call with any questions
[2018-05-26] MEDS: Heparin Central Flush 100 UNIT/ML 5 ML Vial IV.FLUSH SCH (13:32)
--- NOTE | 2018-05-26 13:59 | P.PNID ---
Subjective Remarks: pt remains on 100% FiO2 PEEP 14 + fever up to 102 no sputum afebrile Antibiotics: avicaz zyvox Lines: PICC Past Medical History: reviewed. Allergies/Adverse Reactions: Allergies shellfish derived Allergy (Verified 04/29/18 13:12) Anaphylaxis No Known Allergies Allergy (Uncoded 04/29/18 13:12) Objective Vital Signs 05/25/18 14:00 05/25/18 14:30 05/25/18 14:57 Temperature Pulse Rate 85 84 Respiratory Rate 14 20 14 Blood Pressure 113/70 114/78 Pulse Oximetry 93 L 96 97 05/25/18 15:14 05/25/18 15:53 05/25/18 16:00 Temperature 100.0 F H Pulse Rate 94 H 94 H 88 Respiratory Rate 19 16 15 Blood Pressure 117/66 115/54 L 111/58 L Pulse Oximetry 97 91 L 91 L 05/25/18 16:30 05/25/18 17:01 05/25/18 17:31 Temperature Pulse Rate 80 72 97 H Respiratory Rate 14 43 H 16 Blood Pressure 105/56 L 153/73 H 100/53 L Pulse Oximetry 92 L 97 92 L 05/25/18 18:00 05/25/18 18:30 05/25/18 19:00 Temperature Pulse Rate 84 83 79 Respiratory Rate 15 14 14 Blood Pressure 104/57 L 105/57 L 115/58 L Pulse Oximetry 93 L 93 L 93 L 05/25/18 19:30 05/25/18 20:00 05/25/18 20:05 Temperature 100 F H Pulse Rate 85 86 Respiratory Rate 14 14 14 Blood Pressure 105/51 L 98/56 L Pulse Oximetry 91 L 92 L 91 L 05/25/18 20:30 05/25/18 21:00 05/25/18 21:30 Temperature Pulse Rate 84 84 86 Respiratory Rate 15 14 14 Blood Pressure 100/57 L 102/58 L 96/53 L Pulse Oximetry 88 L 92 L 93 L 05/25/18 22:00 05/25/18 22:20 05/25/18 22:39 Temperature Pulse Rate 85 85 Respiratory Rate 14 14 14 Blood Pressure 96/58 L 115/58 L Pulse Oximetry 91 L 94 L 92 L 05/25/18 23:00 05/25/18 23:30 05/26/18 00:00 Temperature Pulse Rate 83 87 87 Respiratory Rate 15 14 14 Blood Pressure 113/63 105/62 104/57 L Pulse Oximetry 91 L 89 L 92 L 05/26/18 00:30 05/26/18 01:00 05/26/18 01:25 Temperature 101.4 F H Pulse Rate 84 85 Respiratory Rate 14 14 14 Blood Pressure 107/62 106/59 L Pulse Oximetry 94 L 94 L 05/26/18 01:30 05/26/18 01:40 05/26/18 01:54 Temperature 101 F H Pulse Rate 87 Respiratory Rate 14 14 Blood Pressure 104/57 L Pulse Oximetry 93 L 93 L 05/26/18 01:55 05/26/18 02:00 05/26/18 02:30 Temperature Pulse Rate 82 82 Respiratory Rate 14 14 14 Blood Pressure 108/62 107/61 Pulse Oximetry 93 L 93 L 05/26/18 03:00 05/26/18 03:30 05/26/18 04:00 Temperature 102 F H 101.5 F H Pulse Rate 82 80 80 Respiratory Rate 14 14 12 Blood Pressure 113/63 115/64 116/63 Pulse Oximetry 93 L 93 L 93 L 05/26/18 04:28 05/26/18 04:29 05/26/18 04:30 Temperature Pulse Rate 87 Respiratory Rate 14 13 Blood Pressure 119/59 L Pulse Oximetry 94 L 94 L 05/26/18 05:23 05/26/18 05:47 05/26/18 06:02 Temperature Pulse Rate Respiratory Rate 14 14 14 Blood Pressure Pulse Oximetry 05/26/18 08:46 Temperature Pulse Rate Respiratory Rate 14 Blood Pressure Pulse Oximetry 92 L Intake & Output 05/25/18 05/26/18 05/26/18 18:59 06:59 18:59 Intake Total 2714 / 2714 2800 / 2800 700 / 700 Output Total 1500 / 1500 100 / 100 Balance 1214 / 1214 2700 / 2700 700 / 700 Weight 149 kg Intake: IV 2099 / 2099 2000 / 2000 700 / 700 Precedex Inj 1,000 MCG In NS 1250 / 1250 750 / 750 500 / 500 Inj 240 ML @ 0.2 MCG/KG/HR 8.4 mls/hr IV.CONT TITRATE PRN Rx#: [id number] Diprivan 1000 mg/100 ml Inj 1, 200 / 200 400 / 400 200 / 200 000 mg In 100 ml @ 5 MCG/KG/MIN 4.77 mls/hr IV.CONT TITRATE PRN Rx#:[id number] Avycaz Inj 2.5 GM In NS Inj 50 100 / 100 50 / 50 ML @ 25 mls/hr IV.SIG Q8H [facility] Rx#:[id number] Zyvox 600 mg Premix 300 ML @ 300 / 300 300 / 300 300 mls/hr IV.SIG Q12H [facility] Rx#: [id number] fentaNYL 10 mcg/mL Premix Drip 250 / 250 500 / 500 2,500 mcg In 250 ml @ 50 MCG/HR 5 mls/hr IV.SIG TITRATE PRN Rx #:[id number] Oral 0 / 0 Tube Feeding 364 / 364 550 / 550 Water Bolus Amount 250 / 250 250 / 250 Output: Urine 1500 / 1500 Stool 100 / 100 Other: # Voids 4 # Incontinent Voids 7 Date of Last Bowel Movement 05/25/18 05/26/18 05/25/18 16:30 Sputum - Endotracheal Gram Stain - Final 05/25/18 16:30 Sputum - Endotracheal Sputum Culture - Pending 05/18/18 12:40 Blood - Peripheral Aerobic Blood Culture - Final No growth in 5 days 05/18/18 12:40 Blood - Peripheral Anaerobic Blood Culture - Final No growth in 5 days 05/18/18 12:35 Blood - Peripheral Aerobic Blood Culture - Final No growth in 5 days 05/18/18 12:35 Blood - Peripheral Anaerobic Blood Culture - Final No growth in 5 days Lab - Chemistry Results 05/24/18 05/25/18 05/25/18 23:05 05:38 12:54 Sodium Potassium Chloride Carbon Dioxide Anion Gap BUN Creatinine Estimated GFR POC Glucose 135 H 128 H 145 H Random Glucose Calcium Total Bilirubin AST ALT Alkaline Phosphatase Total Protein Albumin 05/25/18 05/25/18 05/26/18 14:52 17:52 00:40 Sodium 138 Potassium 4.0 Chloride 101 Carbon Dioxide 27.5 Anion Gap 10 BUN 21 H Creatinine 0.72 Estimated GFR Greater than 89 POC Glucose 149 H 168 H Random Glucose 167 H Calcium 9.2 Total Bilirubin 0.8 AST 25 ALT 117 H Alkaline Phosphatase 83 Total Protein 7.6 D Albumin 3.1 L 05/26/18 05:45 Sodium Potassium Chloride Carbon Dioxide Anion Gap BUN Creatinine Estimated GFR POC Glucose 136 H Random Glucose Calcium Total Bilirubin AST ALT Alkaline Phosphatase Total Protein Albumin Imaging: ITS Impressions Head CT 04/27/18 11:31 CONCLUSION: 1. Negative CT Head non contrast. . Abdomen/Pelvis CT 04/27/18 11:35 CONCLUSION: 1. Extensive atelectasis in both lower lobes. 2. The Stone catheter needs to be deflated and advanced into the bladder. The catheter is at the level of the prosthetic urethra. 3. No findings to indicate a bowel obstruction are seen. No free air free fluid is identified. Chest CT 04/27/18 11:35 CONCLUSION: 1. Consolidation both posterior lungs with air bronchograms. This could represent bilateral pneumonia or aspiration. Cervical Spine CT 04/27/18 11:36 CONCLUSION: 1. Negative trauma study. Lumbar Spine CT 04/27/18 11:59 CONCLUSION: 1. Negative for acute process 2. There is no evidence for vertebral compression. Head MRI 04/29/18 07:05 CONCLUSION: 1. Negative MRI of the brain. 2. Inflammatory process cannot be entirely excluded. 3. There are no infarcts identified. Abdomen X-Ray 05/17/18 00:00 CONCLUSION: No evidence of bowel obstruction. Dobbhoff tube is seen within the stomach and the proximal port of the nasogastric tube is within the proximal stomach. Venous Doppler Study 05/18/18 00:00 CONCLUSION: 1. Left lower extremity DVT involving the posterior tibial vein from the mid calf to the ankle. 2. No other evidence of DVT at or above the knee in either lower extremity. Cervical Spine MRI 05/20/18 10:29 CONCLUSION: 1. Straightening of the cervical spine. Otherwise, unremarkable exam. Chest X-Ray 05/25/18 08:44 CONCLUSION: PICC line tip remains in the azygos vein Slight interval worsening in aeration. Physical Exam: GENERAL: Obese male, on the vent, awake, responding, NAD SKIN: Cool and dry. no rash. HEAD: Atraumatic. Normocephalic. EYES: Face mildly edematous. NO icterus, no injection ENT: moist mucosae NECK: Trach in place, no dc CARDIOVASCULAR: RRR, no murmurs RESPIRATORY: Coarse BS mikhail, decreased at bases GASTROINTESTINAL: soft abdomen, obese, not tender MUSCULOSKELETAL: Extremities without clubbing, cyanosis, resolution of edema. NEUROLOGICAL: awake, alert, communicates PSYCHIATRIC: calm : Stone in place ,urine clear LINE: NO evidence of infection Assessment and Plan - Plan Sepsis ongoing possible new. PNA, probably aspiration Acute VDRF on rotaprone bed. MSSA pneumonia. GNR pneumonia: Kleb, Enterobacter - now with different GNR in sputum Morbid obesity with likely obesity- hypoventilation sd Coag neg staph bacteremia, low grade doubt clin significance New fever Much worsening respiratory status CXR worsening goes along with clin deteriorations On going PNA- now with MDRO (ESBL/KPC) critical, unstable from pulm Recs: will change Avycaz to vabomere cont zyvox add levaquine for potential Steno malt coverage rechk sputum clx blood clx urine clx CXR in am dw Dr Dee D/W RN
[2018-05-26] MEDS ORDERED: Haloperidol Inj 5 MG/ML Ampul IV.PUSH ONE (15:15)
[2018-05-26] MEDS: SODIUM CHLOR 0.9% IV.SIG SCH (18:06)
[2018-05-26] MEDS: MEROPENEM VABORBACTAM IV.SIG SCH (18:06)
--- NOTE | 2018-05-26 21:16 | P.PNCC ---
Subjective Subjective Remarks/Hospital Course: Patient is approximately 22 years old male obese, was found on the floor by a family member, downtime is unknown. EMS was called, patient was given Narcan with no response, he was intubated on the scene, apparently GCS 3. Found bag of PCP next to the patient. Patient has history of psychiatric disorder ? bipolar disorder and I am told he has attempted suicide in the past. There is also mention about suspicion of ethylene glycol ingestion, but his serum osmolality is 307 his osmolar gap is only 13. Bicarb is 26, ethylene glycol seems unlikely. Ethanol was negative urine drug screen only positive for benzo. I evaluated the patient in the ICU at the [facility]. Patient had a CT of the head which was negative. Rest of the workup unremarkable except for bibasilar atelectasis/aspiration pneumonia. Patient's white count is elevated at 17.1, glucose is 232 lactic acid was 2.8. He received multiple fluid boluses. At this time he is not on any sedation but remains unresponsive no response to deep pain 04/28 Patient remains intubated off sedation unresponsive. Afebrile. 04/29: MRI of the brain revealed no acute intracranial findings. EEG to be performed tomorrow. More arousable and moves all 4 extremities but not following commands. Placed on dexamethasone E drip. 2 feeds will be restarted 04/30: T-max 101.4. Currently afebrile. No bowel movement since admission. Arousable and follows simple commands late last night but currently on sedation for agitation. Increased FiO2 noted. Will attempt to gently diurese and continue antibiotics for pansensitive staph aureus/group a beta strep sputum 05/01 Patient is sedated with Fentanyl, Diprivan and intubated. T:101.1 at 5am. Placed on APRV overnight. 05/02 Patient is sedated with Diprivan and Fentanyl drips. Tmax 101.3, on PC/AC with PEEP:12, FIO2 80%, IP:30 05/03 Patient is heavily sedated with Diprivan, Fentanyl and Versed . On PC/AC with PEEP: 14 and FIO2 100$ sats 92%, CXR yesterday showed diffuse b/l pulm infiltrates, started on Flolan nebs. Had Tmax 102.6 last night. 05/04 Patient was placed on rotoprone bed yesterday sedated with Diprivan, Versed and Fentanyl infusion and on neuromuscular blockade( Nimbex) On PC/AC His FIO2 requirements is better now on FIO2:50% from 100% with PEEP:14. T:102.6 05/05 Patient remains intubated and sedated on Bumex drip 0.5mg/hr, T:99.7 at 3am. On PC/AC with PEEP:1 and FIO2 60%- sats 95%. 05/06 Patient remains sedated and intubated on rotoprone bed with improvements in his oxygenation. Now on PC/AC with PEEP:10, FIO2 40%. Afebrile. On Bumex drip 0.5mg/hr. 05/07 Patient remains on rotoprone bed sedated and on Nimbex drip. He is also on Bumex drip 0.5mg/hr with good urine output . 05/08 Patient remains sedated and intubated. On Flolan, and Bumex drip. Afebrile. 05/09 Patient desat overnight now on PC/AC with PEEP:10 and FIO2 100% sats 96%. Had T: 100.4 at midnight. Sputum cx 05/07 GNR. Remains sedated on Flolan and Bumex drip. 05/10: Resting in bed. Remains on PC/AC rate increased to 16. FiO2 80%. Low- grade fevers noted. Remains on epoprostenol and bumetanide drips. Hypertension noted. Aspirated this a.m. and so discontinued tube feeding. We will start PPN today. 05/11 Patient remains on rotoprone bed, sedated and intubated. Afebrile. On PC/ AC with PEEP;10 and FIO2 55%.On Flolan and Bumex drip 0.5mg/hr 05/12 Remains sedated, intubated and on Rotoprone bed. PC/AC with PEEP: 12 and FIO2 70% sats 96%. T:100.4 last night. On Flolan and Bumex drip. 05/14: Off rotaprone since yesterday, nimbex discontinued, PEEP 14 and FiO2 50% with sats in mid 90s. Still on flolan. 05/15: No acute issues overnight, plan is to wean PEEP slowly over the weekend for tracheostomy on Friday 05/18. 05/16: Flolan weaned yesterday, tolerated well, will continue to wean today. PEEP down to 10. O2 sats low to mid 90s. 05/17: TFs held overnight for high residuals; KUB showed Dobhoff tube in distal stomach with NGT in proximal stomach. Will hold for now, will need to be NPO at midnight for hopeful trach tomorrow. Continue PPN for now. 05/18: Patient had a desat event last night and had to have PEEP increased to 14. Pulse ox probe changed this morning and noted to be 100, now weaned back down to PEEP 10 and FiO2 60%. Will continue to wean FiO2. Flolan off since yesterday. Trach today or tomorrow. 05/19: Trach today. PEEP 8, FiO2 40%. No overnight events. 05/20: Trach performed in OR yesterday afternoon, no immediate complications, sent for MRI C spine this morning by neurology to evaluate for myelopathy which showed no acute abnormalities. Sedation weaned, patient now awake and alert, follows commands, mouths words. 05/21: Currently remains intubated sedated. Requiring heavy sedation for vent synchrony. Currently on propofol fentanyl and Versed infusions. Still wakes up and weakly follows. We will lighten sedation attempt CPAP and possible T- piece 2-4 hours today 05/22: Currently wide awake on the vent despite continuous sedation. Mother requests restarting Wellbutrin which I have ordered. Did not tolerate T-piece yesterday. Attempt again today 05/23: Remains intubated currently heavily sedated as the patient showed violent behavior yesterday. Threatening to hit the staff. Required heavy sedation since then. Remains on propofol fentanyl and Precedex now. Wakes up easily follows commands. Mother confirms history of bipolar disorder (Dr. Kaye was psychiatrist). I have requested psych consult to assist with management of agitation/violent behavior. Hold Wellbutrin which was started yesterday 05/24 appears comfortable now on the vent, however was very agitated overnight requiring increased sedation and caused severe hypoxia currently FiO2 is at 80% . Chest x-ray is pending. I will start scheduled Haldol 2 mg IV every 6 hours per psych recommendation. Patient states that he has night terrors which causes him to be agitated at night I will discuss with with psychiatry and start appropriate treatments 05/25: Remains heavily sedated remains heavily sedated for ventilator synchrony as the patient gets very agitated and hypoxic. They had to go up on FiO2 again currently 80%. I have increased the PEEP to 14. Chest x-ray shows some pulmonary vascular congestion and low lung volumes. Hypoxia most likely from severe atelectasis. I will increase diuresis to achieve negative balance 05/26: fio2 worsening to 100%. spiking fevers again. sputum with new GNRs. discussed with ID- will broaden abx. agitation persists. Objective Vital Signs / I&O: Vital Signs 05/25/18 21:30 05/25/18 22:00 05/25/18 22:20 Temperature Pulse Rate 86 85 Respiratory Rate 14 14 14 Blood Pressure 96/53 L 96/58 L Pulse Oximetry 93 L 91 L 94 L 05/25/18 22:39 05/25/18 23:00 05/25/18 23:30 Temperature Pulse Rate 85 83 87 Respiratory Rate 14 15 14 Blood Pressure 115/58 L 113/63 105/62 Pulse Oximetry 92 L 91 L 89 L 05/26/18 00:00 05/26/18 00:30 05/26/18 01:00 Temperature 38.6 C H Pulse Rate 87 84 85 Respiratory Rate 14 14 14 Blood Pressure 104/57 L 107/62 106/59 L Pulse Oximetry 92 L 94 L 94 L 05/26/18 01:25 05/26/18 01:30 05/26/18 01:40 Temperature Pulse Rate 87 Respiratory Rate 14 14 14 Blood Pressure 104/57 L Pulse Oximetry 93 L 93 L 05/26/18 01:54 05/26/18 01:55 05/26/18 02:00 Temperature 38.3 C H Pulse Rate 82 Respiratory Rate 14 14 Blood Pressure 108/62 Pulse Oximetry 93 L 05/26/18 02:30 05/26/18 03:00 05/26/18 03:30 Temperature 38.8 C H Pulse Rate 82 82 80 Respiratory Rate 14 14 14 Blood Pressure 107/61 113/63 115/64 Pulse Oximetry 93 L 93 L 93 L 05/26/18 04:00 05/26/18 04:28 05/26/18 04:29 Temperature 38.6 C H Pulse Rate 80 87 Respiratory Rate 12 14 13 Blood Pressure 116/63 Pulse Oximetry 93 L 94 L 94 L 05/26/18 04:30 05/26/18 05:00 05/26/18 05:23 Temperature Pulse Rate 88 90 Respiratory Rate 14 15 14 Blood Pressure 119/59 L 115/65 Pulse Oximetry 93 L 94 L 05/26/18 05:30 05/26/18 05:47 05/26/18 06:00 Temperature Pulse Rate 84 90 Respiratory Rate 14 14 15 Blood Pressure 108/60 109/63 Pulse Oximetry 93 L 94 L 05/26/18 06:02 05/26/18 06:30 05/26/18 07:00 Temperature Pulse Rate 81 87 Respiratory Rate 14 14 18 Blood Pressure 108/60 107/56 L Pulse Oximetry 91 L 91 L 05/26/18 07:30 05/26/18 08:00 05/26/18 08:30 Temperature Pulse Rate 81 82 84 Respiratory Rate 14 14 14 Blood Pressure 108/56 L 106/58 L 98/55 L Pulse Oximetry 91 L 91 L 93 L 05/26/18 08:46 05/26/18 09:00 05/26/18 09:30 Temperature Pulse Rate 80 83 Respiratory Rate 14 14 14 Blood Pressure 101/55 L 101/57 L Pulse Oximetry 92 L 93 L 93 L 05/26/18 10:00 05/26/18 10:01 05/26/18 10:30 Temperature Pulse Rate 87 92 H 95 H Respiratory Rate 28 H 19 21 Blood Pressure 106/62 97/58 L Pulse Oximetry 86 L 86 L 86 L 05/26/18 11:00 05/26/18 11:31 05/26/18 12:00 Temperature Pulse Rate 96 H 96 H 91 H Respiratory Rate 20 21 0 L Blood Pressure 99/55 L 111/56 L 110/69 Pulse Oximetry 93 L 91 L 94 L 05/26/18 12:20 05/26/18 12:31 05/26/18 12:33 Temperature Pulse Rate 97 H 96 H Respiratory Rate 14 0 L 0 L Blood Pressure 61/45 L 89/56 L Pulse Oximetry 92 L 94 L 95 05/26/18 13:00 05/26/18 13:04 05/26/18 13:30 Temperature Pulse Rate 94 H 93 H 94 H Respiratory Rate 26 H 31 H 18 Blood Pressure 85/49 L 85/50 L 89/57 L Pulse Oximetry 94 L 94 L 95 05/26/18 14:00 05/26/18 14:01 05/26/18 14:30 Temperature Pulse Rate 110 H 106 H 100 H Respiratory Rate 30 H 25 H 33 H Blood Pressure 112/65 108/63 Pulse Oximetry 96 97 99 05/26/18 15:04 05/26/18 15:34 05/26/18 16:00 Temperature Pulse Rate 104 H 93 H Respiratory Rate 39 H 16 16 Blood Pressure 112/69 Pulse Oximetry 92 L 97 98 Intake & Output 05/26/18 05/26/18 05/27/18 06:59 18:59 06:59 Intake Total 2800 / 2800 3218 / 3218 Output Total 100 / 100 100 / 100 Balance 2700 / 2700 3118 / 3118 Weight 149 kg Intake: IV 1999 / 1999 2250 / 2250 Precedex Inj 1,000 MCG In NS 750 / 750 1000 / 1000 Inj 240 ML @ 0.2 MCG/KG/HR 8.4 mls/hr IV.CONT TITRATE PRN Rx#: [id number] Diprivan 1000 mg/100 ml Inj 1, 400 / 400 500 / 500 000 mg In 100 ml @ 5 MCG/KG/MIN 4.77 mls/hr IV.CONT TITRATE PRN Rx#:[id number] Avycaz Inj 2.5 GM In NS Inj 50 50 / 50 50 / 50 ML @ 25 mls/hr IV.SIG Q8H DARRION Rx#:[id number] Levaquin 750 mg Premix Inj 150 150 / 150 ML @ 100 mls/hr IV.SIG Q24H DARRION Rx#:[id number] Zyvox 600 mg Premix 300 ML @ 300 / 300 300 / 300 300 mls/hr IV.SIG Q12H DARRION Rx#: [id number] fentaNYL 10 mcg/mL Premix Drip 500 / 500 250 / 250 2,500 mcg In 250 ml @ 50 MCG/HR 5 mls/hr IV.SIG TITRATE PRN Rx #:[id number] Tube Feeding 550 / 550 368 / 368 Water Bolus Amount 250 / 250 600 / 600 Output: Stool 100 / 100 100 / 100 Other: # Voids 3 # Incontinent Voids 7 Date of Last Bowel Movement 05/26/18 05/26/18 Result Diagrams: 05/23/18 04:15 05/25/18 14:52 Objective Remarks: GENERAL: Lying in bed sedated but wide awake following commands. SKIN: Warm and dry HEAD: NCAT NECK: Supple, tracheostomy present, clean and dry CARDIOVASCULAR: Regular rate and rhythm in 80s RESPIRATORY: Equal breath sounds bilaterally. PEEP increased to 14, FiO2 at 80% GASTROINTESTINAL: Abdomen obese, soft, non-tender in all quadrants MUSCULOSKELETAL: Trace peripheral edema, improving Neuro: Ventilated via tracheostomy, sedated but wide awake follows commands 4 out of 5 power in all extremities. Attempts to mouth words, sometimes able to vocalize (Gets air around the cuff) Assessment and Plan - Assessment and Plan Plan: NEURO/PSYCH: Acute metabolic encephalopathy Suspected PCP overdose Suspected ethylene glycol overdose Suicide attempt Critical illness myopathy Bipolar disorder -Requiring heavy sedation for vent synchrony with propofol, fentanyl and Precedex. -IV Haldol 2 mg every 6 hours per psych recommendation. Increased to 3 mg IV q6 -Delirium precautions * Lights on/ shades up during the day, limit night time disruptions, frequent reorientation, patient's parents brought his glasses in from home and he should be provided with these whenever awake -Wellbutrin held per psych rec -CT of the head negative. MRI of brain negative. MRI C spine negative. -EEG 05/18, 04/30, 04/28 with no epileptic activity RESP: Acute hypoxemic respiratory failure-now worsening Bilateral atelectasis ARDS resolving Bibasilar aspiration pneumonitis Tobacco abuse -Continue with vent support keep sats >92% -Desaturated overnight again currently on 14 of PEEP FiO2 100%. -Chest x-ray shows low lung volumes and pulmonary vascular congestion -s/p tracheostomy, POD #7. -Cannot do SBT secondary to severe hypoxia -Ventilator bundle. Bronchodilators (ipratropium/albuterol, Q4), Solumedrol reduced to 20mg Q12-05/21/2018 -s/p bronch 05/02 thick secretions suctioned to clear. No evidence of EBL or bleeding. -Nicotine patch CV: Essential hypertension -Monitor HR and BP keep MAP>65mmHg -On Lopressor 50mg TID. Continue clonidine as above -Echo 04/28: EF 60-65%, PASP 36mmHg GI: Elevated ALT Hypoalbuminemia - IV famotidine. -Docusate serum/senna 1 tablet twice daily for bowel regimen. Lactulose 30 cc twice daily and MiraLAX 17 g twice daily. Renal/FEN/: -Monitor renal function, I/O's, electrolytes replacement as needed -Tube feeds to goal - Bumex to 2 mg IV every 6, ID: MSSA/group A beta strep pneumonia Superadded Enterobacter/Klebsiella pneumonia ESBL Abx per ID- continue Merrem, micafungin, vanco 05/07 Sputm cx: Kleb pneumonia, Enterobacter. Repeat cultures from 05/13 have no growth at 5 days, another set of cultures sent 05/18 and pending 04/27 Sputum: Staph aureus/MSSA and beta strep not group A. 05/03 BC: Coag neg staph 05/02 bronch cx: Staph Aureus HEME: Normocytic anemia Leukocytosis-- resolved -Anemia of chronic illness, stable ENDO/FEN: Hyperglycemia -Electrolyte replacement per protocol -Sliding scale insulin -Continue solumedrol q12 MSK: Myopathy of critical illness, severe deconditioning PT/ OT evals appreciated, multipodus boot ordered, patient may benefit from wrist splints/ passive ROM exercises, now awake and alert and can benefit from communicative aids Up to stretcher chair daily PROPH: GI prophylaxis- On Pepcid DVT prophylaxis- Lovenox 40mg SQ BID Doppler US LE: thrombosis of the posterior tibial vein within the calf bilaterally. Repeat duplex on 05/18 shows persistent LLE below the knee DVT which has not propagated proximally. No RLE DVT seen. Case management consulted to help with discharge planning. Patient will need aggressive PT/ OT and will likely need prolonged wean from ventilator given extent of physical deconditioning. LINES: -PICC placed on 05/08/18 OVERALL: Patient significantly improved over the past week. OOB to chair start aggressively weaning vent, advance TFs, dispo planning.
[2018-05-26] MEDS: Melatonin 5 MG Tablet PO SCH (21:42)
[2018-05-27] MEDS: LORazepam 0.5 MG Tablet PO SCH ×4 (01:17→18:01)
[2018-05-27] MEDS: SODIUM CHLOR 0.9% IV.SIG SCH ×3 (01:18→18:01)
[2018-05-27] MEDS: Propofol 1000 mg/100 ml Inj 1,000 MG/100 ML BOTTLE IV.CONT PRN ×11 (01:18→23:19)
[2018-05-27] MEDS: fentaNYL 10 mcg/mL Premix Drip 2,500 MCG/250 ML BAG IV.SIG PRN ×2 (01:18→19:49)
[2018-05-27] MEDS: MEROPENEM VABORBACTAM IV.SIG SCH ×3 (01:18→18:01)
[2018-05-27] MEDS: Dexmedetomidine Inj 1,000 MCG in Sodium Chlor 0.9% Inj 240 ML IV.CONT PRN ×8 (01:38→20:55)
[2018-05-27] MEDS: Oral Hygiene Kit OROPHARYNG SCH ×3 (03:18→17:05)
[2018-05-27] MEDS: Haloperidol Inj 5 MG/ML Ampul IV.PUSH SCH ×5 (05:06→23:03)
[2018-05-27 05:28] LABS: Hematocrit 33.2 % (39.0-51.0); Hemoglobin 11.1 gm/dL (13.0-17.0); Mean Corpuscular HGB Conc 33.4 % (32.0-36.0); Mean Corpuscular Hemoglobin 30.1 pg (27.0-34.0); Mean Corpuscular Volume 90.1 fL (80.0-100.0); Mean Platelet Volume 8.7 fL (7.0-11.0); Platelet Count 166 th/mm3 (150-450); Red Blood Count 3.69 mil/mm3 (4.50-5.90); Red Cell Distribution Width 15.4 % (11.6-17.2); White Blood Count 18.4 th/mm3 (4.0-11.0)
[2018-05-27 05:49] LABS: Anion Gap 7 meq/L (5-15); Blood Urea Nitrogen 19 mg/dL (7-18); Calcium 8.4 mg/dL (8.5-10.1); Carbon Dioxide 27.8 meq/L (21.0-32.0); Chloride 102 meq/L (98-107); Glomerular Filtration Rate Greater Than 89 mL/min (>89); Glucose,Random 174 mg/dL (74-106); Potassium 3.6 meq/L (3.5-5.1); Sodium 137 meq/L (136-145)
[2018-05-27 05:50] LABS: Magnesium 1.7 mg/dL (1.5-2.5); Phosphorus 2.7 mg/dL (2.5-4.9)
--- NOTE | 2018-05-27 05:58 | XR ---
EXAM DATE: 05/27/2018 5:18 AM EST AGE/SEX: 22 years / Male INDICATIONS: Short of breath. CLINICAL DATA: This is the patient's subsequent encounter. Patient reports that signs and symptoms h ave been present for 3 weeks and indicates a pain score of 0/10. MEDICAL/SURGICAL HISTORY: Non-responsive. Non-responsive. COMPARISON: [facility], CHEST 1V SINGLE AP, 05/25/2018. . FINDINGS: Tracheostomy in good position. NG enters stomach. Bilateral mostly basilar and perihilar airspace dis ease. No significant effusion. No pneumothorax. CONCLUSION: Bilateral mostly basilar and perihilar airspace disease similar to May 25. Electronically signed by: Bam Rolon MD 05/27/2018 5:57 AM EST
[2018-05-27] MEDS: Insulin NovoLOG Aspart Correctional Sugar Inj SQ SCH ×3 (06:44→18:40)
[2018-05-27] MEDS: Chlorhexidine 0.12% Oral Kit 15 ML UDC OROPHARYNG SCH ×2 (08:13→21:23)
[2018-05-27] MEDS: Artificial Tears Opth Drops 15 ML Bottle EACH EYE SCH ×2 (08:14→17:05)
[2018-05-27] MEDS: Potassium Bicarbonate 25 MEQ Effervescent Tablet NG/OG SCH ×2 (08:14→21:23)
[2018-05-27] MEDS: Metoprolol Tartrate 50 MG Tablet PO SCH ×3 (08:15→18:01)
[2018-05-27] MEDS: Polyethylene Glycol 3350 17 GM Packet PO SCH ×2 (08:15→21:24)
[2018-05-27] MEDS: Enoxaparin Inj 40 MG/0.4 ML Syringe SQ SCH ×2 (08:15→21:23)
[2018-05-27] MEDS: Heparin Central Flush 100 UNIT/ML 5 ML Vial IV.FLUSH SCH (08:15)
[2018-05-27] MEDS: Pantoprazole Inj 40 MG Vial IV.PUSH SCH (08:16)
[2018-05-27] MEDS: Senna/Docusate Sodium 8.6/50 MG Tablet PO SCH ×2 (08:16→21:25)
[2018-05-27] MEDS: Collagenase Oint 30 GM Tube TOPICAL SCH (08:16)
[2018-05-27] MEDS: MethylPREDNISolone Sod Succinate Inj 40 MG/ML Vial IV.PUSH SCH ×2 (08:16→21:25)
[2018-05-27] MEDS: Erythromycin Ethylsuccinate Susp 400 MG/5ML 100 ML Bottle NG/OG SCH ×3 (09:00→18:01)
[2018-05-27] MEDS ORDERED: Haloperidol Inj 5 MG/ML Ampul IV.PUSH ONE (09:45)
--- NOTE | 2018-05-27 16:32 | P.DIET ---
Nutritional Evaluation Type of nutrition evaluation: follow-up Nutrition consult regarding: Tube Feeding Objective - Diagnosis suicidal attempt, aspiration pneumonia - Objective % IBW: 192 (IBW = 202lb) Body Weight Used for Calculations: IBW Energy Needs - Lower Range (kCal/kg): 11 Energy Needs - Upper Range (kCal/kg): 14 Lower Limit kCal/kg (kCals): 1,848 Upper Limit kCal/kg (kCals): 2,352 Lower Limit Protein Factor (Grams per Kg): 1.2 Upper Limit Protein Factor (Grams per Kg): 1.5 Lower Protein Needs (Protein): 110 Upper Protein Needs (Protein): 138 Fluid Factor (ml/kg): 30 Estimated Fluid Needs (ml): 2,754 Dietitian Reviewed in Medical Record: Curent medications, Intake & Output, Labs , Medical history, Tube feeding Diet Order: NPO, TPN Speech Therapy Recommendations: No Objective Comments: PMH: affective bipolar disorder Labs: POC glucose [phone] Assessment Assessment: Pt currently at nutritional risk r/t dependency on TF'ing. Pt currently receiving Jevity 1.5 @ 50mL/hr per . RD to recommend increasing TF rate to Jevity 1.5 @ 60mL/hr w/ added Beneprotein 1 pkt TID to best meet pts nutritional needs. Additional kcal (1.1kcal/mL) provided by propofol when running. Wts noted, CBW = 148.1kg, wt loss of 28kg since admission date. Elevated glucose noted, will continue monitor glucose levels and need of formula change. Labs reviewed, dietitian following. Recommendations: 1. Increase TF to Jevity 1.5 @ 60mL w/ Beneprotein 1 pkt TID when tolerated 2. Additional kcal (1.1kcal/mL) provided by propofol when running 3. Wts noted, CBW = 148.1kg, wt loss of 28kg since admission date 4. Elevated glucose noted, will continue monitor glucose levels and need of formula change 5. Dietitian following Dietitian to Monitor: Lab values, Glucose level, Intake & Output, Tube feeding tolerance, Weight change, Medical course
[2018-05-27] MEDS: Melatonin 5 MG Tablet PO SCH (21:24)
--- NOTE | 2018-05-27 22:05 | P.PNCC ---
Subjective Subjective Remarks/Hospital Course: Patient is approximately 22 years old male obese, was found on the floor by a family member, downtime is unknown. EMS was called, patient was given Narcan with no response, he was intubated on the scene, apparently GCS 3. Found bag of PCP next to the patient. Patient has history of psychiatric disorder ? bipolar disorder and I am told he has attempted suicide in the past. There is also mention about suspicion of ethylene glycol ingestion, but his serum osmolality is 307 his osmolar gap is only 13. Bicarb is 26, ethylene glycol seems unlikely. Ethanol was negative urine drug screen only positive for benzo. I evaluated the patient in the ICU at the [facility]. Patient had a CT of the head which was negative. Rest of the workup unremarkable except for bibasilar atelectasis/aspiration pneumonia. Patient's white count is elevated at 17.1, glucose is 232 lactic acid was 2.8. He received multiple fluid boluses. At this time he is not on any sedation but remains unresponsive no response to deep pain 04/28 Patient remains intubated off sedation unresponsive. Afebrile. 04/29: MRI of the brain revealed no acute intracranial findings. EEG to be performed tomorrow. More arousable and moves all 4 extremities but not following commands. Placed on dexamethasone E drip. 2 feeds will be restarted 04/30: T-max 101.4. Currently afebrile. No bowel movement since admission. Arousable and follows simple commands late last night but currently on sedation for agitation. Increased FiO2 noted. Will attempt to gently diurese and continue antibiotics for pansensitive staph aureus/group a beta strep sputum 05/01 Patient is sedated with Fentanyl, Diprivan and intubated. T:101.1 at 5am. Placed on APRV overnight. 05/02 Patient is sedated with Diprivan and Fentanyl drips. Tmax 101.3, on PC/AC with PEEP:12, FIO2 80%, IP:30 05/03 Patient is heavily sedated with Diprivan, Fentanyl and Versed . On PC/AC with PEEP: 14 and FIO2 100$ sats 92%, CXR yesterday showed diffuse b/l pulm infiltrates, started on Flolan nebs. Had Tmax 102.6 last night. 05/04 Patient was placed on rotoprone bed yesterday sedated with Diprivan, Versed and Fentanyl infusion and on neuromuscular blockade( Nimbex) On PC/AC His FIO2 requirements is better now on FIO2:50% from 100% with PEEP:14. T:102.6 05/05 Patient remains intubated and sedated on Bumex drip 0.5mg/hr, T:99.7 at 3am. On PC/AC with PEEP:1 and FIO2 60%- sats 95%. 05/06 Patient remains sedated and intubated on rotoprone bed with improvements in his oxygenation. Now on PC/AC with PEEP:10, FIO2 40%. Afebrile. On Bumex drip 0.5mg/hr. 05/07 Patient remains on rotoprone bed sedated and on Nimbex drip. He is also on Bumex drip 0.5mg/hr with good urine output . 05/08 Patient remains sedated and intubated. On Flolan, and Bumex drip. Afebrile. 05/09 Patient desat overnight now on PC/AC with PEEP:10 and FIO2 100% sats 96%. Had T: 100.4 at midnight. Sputum cx 05/07 GNR. Remains sedated on Flolan and Bumex drip. 05/10: Resting in bed. Remains on PC/AC rate increased to 16. FiO2 80%. Low- grade fevers noted. Remains on epoprostenol and bumetanide drips. Hypertension noted. Aspirated this a.m. and so discontinued tube feeding. We will start PPN today. 05/11 Patient remains on rotoprone bed, sedated and intubated. Afebrile. On PC/ AC with PEEP;10 and FIO2 55%.On Flolan and Bumex drip 0.5mg/hr 05/12 Remains sedated, intubated and on Rotoprone bed. PC/AC with PEEP: 12 and FIO2 70% sats 96%. T:100.4 last night. On Flolan and Bumex drip. 05/14: Off rotaprone since yesterday, nimbex discontinued, PEEP 14 and FiO2 50% with sats in mid 90s. Still on flolan. 05/15: No acute issues overnight, plan is to wean PEEP slowly over the weekend for tracheostomy on Friday 05/18. 05/16: Flolan weaned yesterday, tolerated well, will continue to wean today. PEEP down to 10. O2 sats low to mid 90s. 05/17: TFs held overnight for high residuals; KUB showed Dobhoff tube in distal stomach with NGT in proximal stomach. Will hold for now, will need to be NPO at midnight for hopeful trach tomorrow. Continue PPN for now. 05/18: Patient had a desat event last night and had to have PEEP increased to 14. Pulse ox probe changed this morning and noted to be 100, now weaned back down to PEEP 10 and FiO2 60%. Will continue to wean FiO2. Flolan off since yesterday. Trach today or tomorrow. 05/19: Trach today. PEEP 8, FiO2 40%. No overnight events. 05/20: Trach performed in OR yesterday afternoon, no immediate complications, sent for MRI C spine this morning by neurology to evaluate for myelopathy which showed no acute abnormalities. Sedation weaned, patient now awake and alert, follows commands, mouths words. 05/21: Currently remains intubated sedated. Requiring heavy sedation for vent synchrony. Currently on propofol fentanyl and Versed infusions. Still wakes up and weakly follows. We will lighten sedation attempt CPAP and possible T- piece 2-4 hours today 05/22: Currently wide awake on the vent despite continuous sedation. Mother requests restarting Wellbutrin which I have ordered. Did not tolerate T-piece yesterday. Attempt again today 05/23: Remains intubated currently heavily sedated as the patient showed violent behavior yesterday. Threatening to hit the staff. Required heavy sedation since then. Remains on propofol fentanyl and Precedex now. Wakes up easily follows commands. Mother confirms history of bipolar disorder (Dr. Kaye was psychiatrist). I have requested psych consult to assist with management of agitation/violent behavior. Hold Wellbutrin which was started yesterday 05/24 appears comfortable now on the vent, however was very agitated overnight requiring increased sedation and caused severe hypoxia currently FiO2 is at 80% . Chest x-ray is pending. I will start scheduled Haldol 2 mg IV every 6 hours per psych recommendation. Patient states that he has night terrors which causes him to be agitated at night I will discuss with with psychiatry and start appropriate treatments 05/25: Remains heavily sedated remains heavily sedated for ventilator synchrony as the patient gets very agitated and hypoxic. They had to go up on FiO2 again currently 80%. I have increased the PEEP to 14. Chest x-ray shows some pulmonary vascular congestion and low lung volumes. Hypoxia most likely from severe atelectasis. I will increase diuresis to achieve negative balance 05/26: fio2 worsening to 100%. spiking fevers again. sputum with new GNRs. discussed with ID- will broaden abx. agitation persists. 05/27: no improvements. fio2 still elevated. sputum still growing klebisella and serratia. still highly agitated and minimal improvements with current sedation plan. in discussing with bedside RN: precedex does not appear to be providing any benefit, but adding 2L/day ivf, which is hurting fluid balance. Objective Vital Signs / I&O: Vital Signs 05/26/18 22:40 05/26/18 23:03 05/26/18 23:27 Temperature Pulse Rate 83 Respiratory Rate 14 0 L 14 Blood Pressure 117/59 L Pulse Oximetry 98 98 05/27/18 00:00 05/27/18 01:00 05/27/18 01:17 Temperature Pulse Rate 80 86 Respiratory Rate 14 15 14 Blood Pressure 125/67 109/58 L Pulse Oximetry 98 98 05/27/18 01:40 05/27/18 02:00 05/27/18 03:00 Temperature Pulse Rate 87 85 Respiratory Rate 14 14 23 Blood Pressure 108/57 L 112/60 Pulse Oximetry 98 99 98 05/27/18 03:17 05/27/18 04:00 05/27/18 04:55 Temperature Pulse Rate 83 Respiratory Rate 14 24 15 Blood Pressure 115/61 Pulse Oximetry 96 99 05/27/18 05:00 05/27/18 05:05 05/27/18 05:52 Temperature Pulse Rate 86 Respiratory Rate 16 14 14 Blood Pressure 119/66 Pulse Oximetry 100 05/27/18 06:00 05/27/18 06:45 05/27/18 07:00 Temperature 38.3 C H Pulse Rate 92 H 93 H Respiratory Rate 16 17 Blood Pressure 111/59 L 106/57 L Pulse Oximetry 96 98 05/27/18 08:00 05/27/18 09:00 05/27/18 09:03 Temperature Pulse Rate 91 H 94 H Respiratory Rate 17 18 16 Blood Pressure 102/57 L 102/59 L Pulse Oximetry 98 100 99 05/27/18 10:00 05/27/18 10:12 05/27/18 10:46 Temperature Pulse Rate 109 H Respiratory Rate 25 H 23 28 H Blood Pressure 102/57 L Pulse Oximetry 92 L 99 92 L 05/27/18 11:01 05/27/18 11:33 05/27/18 12:00 Temperature Pulse Rate 106 H 100 H 100 H Respiratory Rate 39 H 34 H 37 H Blood Pressure 103/55 L 101/65 110/64 Pulse Oximetry 83 L 92 L 93 L 05/27/18 13:00 05/27/18 14:00 05/27/18 15:00 Temperature Pulse Rate 98 H 95 H 102 H Respiratory Rate 35 H 21 37 H Blood Pressure 103/57 L 102/59 L 99/60 L Pulse Oximetry 98 99 98 05/27/18 15:49 05/27/18 16:00 05/27/18 17:00 Temperature Pulse Rate 99 H 95 H Respiratory Rate 34 H 30 H 36 H Blood Pressure 106/55 L 106/57 L Pulse Oximetry 98 99 100 05/27/18 18:00 05/27/18 19:00 Temperature Pulse Rate 94 H 92 H Respiratory Rate 30 H 23 Blood Pressure 101/57 L 104/57 L Pulse Oximetry 100 100 Intake & Output 05/27/18 05/27/18 05/28/18 06:59 18:59 06:59 Intake Total 3689.3 / 3689.3 3292 / 3292 850 / 850 Output Total 900 / 900 Balance 3689.3 / 3689.3 2392 / 2392 850 / 850 Weight 148.1 kg Intake: IV 3002.3 / 3002.3 2800 / 2800 850 / 850 Precedex Inj 1,000 MCG In NS 952.3 / 952.3 1000 / 1000 250 / 250 Inj 240 ML @ 0.2 MCG/KG/HR 8.4 mls/hr IV.CONT TITRATE PRN Rx#: [id number] Diprivan 1000 mg/100 ml Inj 1, 500 / 500 600 / 600 100 / 100 000 mg In 100 ml @ 5 MCG/KG/MIN 4.77 mls/hr IV.CONT TITRATE PRN Rx#:[id number] Levaquin 750 mg Premix Inj 150 150 / 150 ML @ 100 mls/hr IV.SIG Q24H [facility] Rx#:[id number] Zyvox 600 mg Premix 300 ML @ 300 / 300 300 / 300 300 mls/hr IV.SIG Q12H [facility] Rx#: [id number] Vabomere Inj 4,000 MG In NS Inj 1000 / 1000 500 / 500 500 / 500 500 ML @ 166.667 mls/hr IV.SIG Q8H [facility] Rx#:[id number] fentaNYL 10 mcg/mL Premix Drip 250 / 250 250 / 250 2,500 mcg In 250 ml @ 50 MCG/HR 5 mls/hr IV.SIG TITRATE PRN Rx #:[id number] Tube Feeding 437 / 437 492 / 492 Water Bolus Amount 250 / 250 Output: Urine 900 / 900 Other: # Incontinent Voids 3 Date of Last Bowel Movement 05/27/18 05/27/18 # Bowel Movements 2 Result Diagrams: 05/27/18 04:38 05/27/18 04:38 Objective Remarks: GENERAL: Lying in bed sedated but awake and agitated, not following commands today. SKIN: Warm and dry HEAD: NCAT NECK: Supple, tracheostomy present, clean and dry CARDIOVASCULAR: Regular rate and rhythm in 80s RESPIRATORY: Equal breath sounds bilaterally. PEEP increased to 14, FiO2 at 70% : dyssynchronous. changed to APRV 30/0 5/0.9 70% on my eval. GASTROINTESTINAL: Abdomen obese, soft, non-tender in all quadrants MUSCULOSKELETAL: Trace peripheral edema, improving Neuro: Ventilated via tracheostomy, sedated but wide awake. not following commands today. agitated. CAM+. Assessment and Plan - Assessment and Plan Plan: NEURO/PSYCH: Acute metabolic encephalopathy Suspected PCP overdose Suspected ethylene glycol overdose Suicide attempt Critical illness myopathy Bipolar disorder -Requiring heavy sedation for vent synchrony with propofol, fentanyl and Precedex. increase haldol to 5mg iv q4h scheduled d/c precedex increase max dose of propofol to 80 mcg/kg/min continue fentanyl drip d/c scheduled oxycodone 20mg po q4h start morphine 10mg iv q4h scheduled continue clonidine 0.3mg po TID add propranolol 10mg po q6h -Delirium precautions * Lights on/ shades up during the day, limit night time disruptions, frequent reorientation, patient's parents brought his glasses in from home and he should be provided with these whenever awake -Wellbutrin held per psych rec - continue melatonin 10mg po qHS for sleep -CT of the head negative. MRI of brain negative. MRI C spine negative. -EEG 05/18, 04/30, 04/28 with no epileptic activity RESP: Acute hypoxemic respiratory failure-now worsening Bilateral atelectasis ARDS resolving Bibasilar aspiration pneumonitis Tobacco abuse -Continue with vent support keep sats >92% -Desaturated overnight again currently on 14 of PEEP FiO2 100%. change to APRV 30/0, 5/0.9. -Chest x-ray shows low lung volumes and pulmonary vascular congestion -s/p tracheostomy, POD #8 -Cannot do SBT secondary to severe hypoxia -Ventilator bundle. Bronchodilators (ipratropium/albuterol, Q4), Solumedrol reduced to 20mg Q12-05/21/2018 -s/p bronch 05/02 thick secretions suctioned to clear. No evidence of EBL or bleeding. -Nicotine patch CV: Essential hypertension -Monitor HR and BP keep MAP>65mmHg -clonidine 0.3mg po TID d/c lopressor start propranolol 10mg po q6h -Echo 04/28: EF 60-65%, PASP 36mmHg GI: Elevated ALT Hypoalbuminemia - IV famotidine. -Docusate serum/senna 1 tablet twice daily for bowel regimen. Lactulose 30 cc twice daily and MiraLAX 17 g twice daily. Renal/FEN/: -Monitor renal function, I/O's, electrolytes replacement as needed -Tube feeds to goal - Bumex 2 mg IV every 6, add diamox 500mg iv q8h ID: MSSA/group A beta strep pneumonia Superadded Enterobacter/Klebsiella pneumonia ESBL Abx per ID- continue Merrem, micafungin, vanco 05/07 Sputm cx: Kleb pneumonia, Enterobacter. Repeat cultures from 05/13 have no growth at 5 days, another set of cultures sent 05/18 and pending 04/27 Sputum: Staph aureus/MSSA and beta strep not group A. 05/03 BC: Coag neg staph 05/02 bronch cx: Staph Aureus HEME: Normocytic anemia Leukocytosis-- resolved -Anemia of chronic illness, stable ENDO/FEN: Hyperglycemia -Electrolyte replacement per protocol -Sliding scale insulin -Continue solumedrol q12 MSK: Myopathy of critical illness, severe deconditioning PT/ OT evals appreciated, multipodus boot ordered, patient may benefit from wrist splints/ passive ROM exercises, Up to stretcher chair daily PROPH: GI prophylaxis- On Pepcid DVT prophylaxis- Lovenox 40mg SQ BID Doppler US LE: thrombosis of the posterior tibial vein within the calf bilaterally. Repeat duplex on 05/18 shows persistent LLE below the knee DVT which has not propagated proximally. No RLE DVT seen. Case management consulted to help with discharge planning. Patient will need aggressive PT/ OT and will likely need prolonged wean from ventilator given extent of physical deconditioning. LINES: -PICC placed on 05/08/18
[2018-05-27] MEDS: Morphine Inj 4 MG/ML Vial IV.PUSH SCH (23:18)
[2018-05-28] MEDS: Propranolol 10 MG Tablet PO SCH ×2 (01:00→05:07)
[2018-05-28] MEDS: Oral Hygiene Kit OROPHARYNG SCH ×4 (01:02→17:04)
[2018-05-28] MEDS: Artificial Tears Opth Drops 15 ML Bottle EACH EYE SCH ×3 (01:02→17:04)
[2018-05-28] MEDS: Haloperidol Inj 5 MG/ML Ampul IV.PUSH SCH ×6 (01:02→21:24)
[2018-05-28] MEDS: Morphine Inj 4 MG/ML Vial IV.PUSH SCH ×3 (01:02→10:08)
[2018-05-28] MEDS: Insulin NovoLOG Aspart Correctional Sugar Inj SQ SCH ×4 (01:08→17:33)
[2018-05-28] MEDS: SODIUM CHLOR 0.9% IV.SIG SCH ×2 (01:15→09:24)
[2018-05-28] MEDS: MEROPENEM VABORBACTAM IV.SIG SCH ×2 (01:15→09:24)
[2018-05-28] MEDS: Propofol 1000 mg/100 ml Inj 1,000 MG/100 ML BOTTLE IV.CONT PRN ×7 (01:15→22:20)
[2018-05-28 05:41] LABS: Hematocrit 30.4 % (39.0-51.0); Hemoglobin 9.9 gm/dL (13.0-17.0); Mean Corpuscular HGB Conc 32.6 % (32.0-36.0); Mean Corpuscular Hemoglobin 29.7 pg (27.0-34.0); Mean Corpuscular Volume 90.9 fL (80.0-100.0); Mean Platelet Volume 9.5 fL (7.0-11.0); Platelet Count 164 th/mm3 (150-450); Red Blood Count 3.34 mil/mm3 (4.50-5.90); Red Cell Distribution Width 15.6 % (11.6-17.2); White Blood Count 18.3 th/mm3 (4.0-11.0)
[2018-05-28 06:08] LABS: Anion Gap 10 meq/L (5-15); Blood Urea Nitrogen 18 mg/dL (7-18); Calcium 8.4 mg/dL (8.5-10.1); Carbon Dioxide 27.3 meq/L (21.0-32.0); Chloride 104 meq/L (98-107); Glomerular Filtration Rate Greater Than 89 mL/min (>89); Glucose,Random 165 mg/dL (74-106); Magnesium 2.2 mg/dL (1.5-2.5); Phosphorus 2.8 mg/dL (2.5-4.9); Potassium 3.2 meq/L (3.5-5.1); Sodium 141 meq/L (136-145)
[2018-05-28] MEDS: Potassium Chlor 20 mEq Premix 20 MEQ/100 ML PIGGYBACK IV.SIG PRN (06:43)
[2018-05-28] MEDS ORDERED: Haloperidol Inj 5 MG/ML Ampul IV.PUSH STA (08:46)
[2018-05-28] MEDS ORDERED: Propranolol 10 MG Tablet PO ONE (09:00)
[2018-05-28] MEDS: Chlorhexidine 0.12% Oral Kit 15 ML UDC OROPHARYNG SCH ×2 (09:20→21:21)
[2018-05-28] MEDS: Erythromycin Ethylsuccinate Susp 400 MG/5ML 100 ML Bottle NG/OG SCH ×3 (09:20→17:05)
[2018-05-28] MEDS: Pantoprazole Inj 40 MG Vial IV.PUSH SCH (09:21)
[2018-05-28] MEDS: Potassium Bicarbonate 25 MEQ Effervescent Tablet NG/OG SCH ×2 (09:22→21:22)
[2018-05-28] MEDS: Heparin Central Flush 100 UNIT/ML 5 ML Vial IV.FLUSH SCH (09:22)
[2018-05-28] MEDS: MethylPREDNISolone Sod Succinate Inj 40 MG/ML Vial IV.PUSH SCH ×2 (09:22→21:23)
[2018-05-28] MEDS: Enoxaparin Inj 40 MG/0.4 ML Syringe SQ SCH ×2 (09:22→21:23)
[2018-05-28] MEDS: Senna/Docusate Sodium 8.6/50 MG Tablet PO SCH ×2 (09:23→21:23)
[2018-05-28] MEDS: Collagenase Oint 30 GM Tube TOPICAL SCH (09:24)
[2018-05-28] MEDS: Polyethylene Glycol 3350 17 GM Packet PO SCH (10:08)
[2018-05-28] MEDS: Bumetanide Inj 25 MG/100 ML BAG IV.CONT SCH (11:05)
[2018-05-28] MEDS ORDERED: Morphine Sulfate Inj 8 MG/ML Vial ONE (11:15)
[2018-05-28] MEDS ORDERED: Propranolol 40 MG Tablet PO STA (11:41)
[2018-05-28] MEDS ORDERED: QUEtiapine 100 MG Tablet PO STA (11:42)
[2018-05-28] MEDS ORDERED: Methadone Inj 10 MG/ML Vial IV.PUSH ONE (11:45)
[2018-05-28] MEDS ORDERED: Propranolol 10 MG Tablet PO SCH (12:00)
[2018-05-28 14:04] LABS: ABG Base Excess 2.9 mmol/L (-2-2); ABG PCO2 43 mmHg (38-42); ABG PO2 50 mmHG (61-120)
--- NOTE | 2018-05-28 14:09 | XR ---
EXAM DATE: 05/28/2018 2:05 PM EST AGE/SEX: 22 years / Male INDICATIONS: Short of breath, intubated, evaluate infiltrates CLINICAL DATA: This is the patient's subsequent encounter. Patient reports that signs and symptoms h ave been present for 3 weeks and indicates a pain score of Nonresponsive. MEDICAL/SURGICAL HISTORY: . DVT, acute metabolic encephalopathy, bipolar disorder Non-responsi ve. COMPARISON: [facility], CHEST 1V SINGLE AP, 05/27/2018. . FINDINGS: The ET tube is in satisfactory position. The heart is normal in size. There are atelectatic changes in the lung bases. There is atelectasis in the perihilar region bilater ally. Both of these areas have improved when compared to previous study of 05/27/2018. There is minim al effusion at the right lung base. CONCLUSION: Mild interval improvement compared to previous. Electronically signed by: Michael Gaspar MD 05/28/2018 2:07 PM EST
[2018-05-28] MEDS: QUEtiapine 100 MG Tablet PO SCH ×2 (14:25→21:22)
--- NOTE | 2018-05-28 15:47 | P.PNGS ---
Subjective Interval history: Eyes open with stimuli Was asked to check on trach by Dr. Dee Physical Exam Vital signs: Vital Signs 05/27/18 15:49 05/27/18 16:00 05/27/18 17:00 Temperature Pulse Rate 99 H 95 H Respiratory Rate 34 H 30 H 36 H Blood Pressure 106/55 L 106/57 L Pulse Oximetry 98 99 100 05/27/18 18:00 05/27/18 19:00 05/27/18 20:00 Temperature 101.3 F H Pulse Rate 94 H 92 H 92 H Respiratory Rate 30 H 23 10 L Blood Pressure 101/57 L 104/57 L 104/56 L Pulse Oximetry 100 100 100 05/27/18 21:00 05/27/18 22:00 05/27/18 23:00 Temperature Pulse Rate 102 H 90 90 Respiratory Rate 27 H 10 L 10 L Blood Pressure 116/55 L 108/59 L 110/59 L Pulse Oximetry 100 100 100 05/28/18 00:00 05/28/18 00:18 05/28/18 01:00 Temperature 100.9 F H Pulse Rate 100 H 116 H Respiratory Rate 30 H 31 H 29 H Blood Pressure 108/56 L 111/59 L Pulse Oximetry 98 98 98 05/28/18 02:00 05/28/18 03:00 05/28/18 04:00 Temperature 100.5 F H Pulse Rate 129 H 120 H 109 H Respiratory Rate 30 H 19 10 L Blood Pressure 125/62 108/54 L 103/54 L Pulse Oximetry 97 99 100 05/28/18 04:42 05/28/18 05:00 05/28/18 05:21 Temperature Pulse Rate 104 H 107 H Respiratory Rate 30 H 10 L 10 L Blood Pressure 93/50 L 96/61 L Pulse Oximetry 100 100 100 05/28/18 06:00 05/28/18 07:00 05/28/18 07:25 Temperature Pulse Rate 111 H 129 H 120 H Respiratory Rate 10 L 10 L 14 Blood Pressure 95/53 L 101/58 L 99/50 L Pulse Oximetry 100 90 L 99 05/28/18 08:00 05/28/18 08:30 05/28/18 08:44 Temperature 98.2 F Pulse Rate 137 H 124 H 79 Respiratory Rate 22 21 38 H Blood Pressure 102/61 106/74 178/88 H Pulse Oximetry 96 05/28/18 09:00 05/28/18 09:09 05/28/18 09:31 Temperature Pulse Rate 90 116 H Respiratory Rate 37 H 50 H 37 H Blood Pressure 189/101 H 201/92 H Pulse Oximetry 88 L 84 L 05/28/18 10:00 05/28/18 10:01 05/28/18 10:31 Temperature Pulse Rate 101 H 108 H 68 Respiratory Rate 38 H 48 H 39 H Blood Pressure 177/83 H 194/117 H Pulse Oximetry 89 L 86 L 82 L 05/28/18 10:54 Temperature Pulse Rate 136 H Respiratory Rate 33 H Blood Pressure 128/59 L Pulse Oximetry 90 L Intake & Output 05/27/18 05/28/18 05/28/18 18:59 06:59 18:59 Intake Total 3292 / 3292 3164 / 3164 100 / 100 Output Total 900 / 900 1055 / 1055 Balance 2392 / 2392 2109 / 2109 100 / 100 Weight 150.1 kg Intake: IV 2800 / 2800 2300 / 2300 100 / 100 Precedex Inj 1,000 MCG In NS 1000 / 1000 500 / 500 Inj 240 ML @ 0.2 MCG/KG/HR 8.4 mls/hr IV.CONT TITRATE PRN Rx#: [id number] Diprivan 1000 mg/100 ml Inj 1, 600 / 600 500 / 500 100 / 100 000 mg In 100 ml @ 5 MCG/KG/MIN 4.77 mls/hr IV.CONT TITRATE PRN Rx#:[id number] Levaquin 750 mg Premix Inj 150 150 / 150 ML @ 100 mls/hr IV.SIG Q24H [facility] Rx#:[id number] Zyvox 600 mg Premix 300 ML @ 300 / 300 300 / 300 300 mls/hr IV.SIG Q12H [facility] Rx#: [id number] Vabomere Inj 4,000 MG In NS Inj 500 / 500 1000 / 1000 500 ML @ 166.667 mls/hr IV.SIG Q8H [facility] Rx#:[id number] fentaNYL 10 mcg/mL Premix Drip 250 / 250 2,500 mcg In 250 ml @ 50 MCG/HR 5 mls/hr IV.SIG TITRATE PRN Rx #:[id number] Oral 0 / 0 Tube Feeding 492 / 492 514 / 514 Tube Irrigant 100 / 100 Water Bolus Amount 250 / 250 Output: Urine 900 / 900 950 / 950 Estimated Blood Loss 5 / 5 Gastric Drainage 100 / 100 Orogastric Tube 100 / 100 Other: # Voids 1 # Incontinent Voids 1 Date of Last Bowel Movement 05/27/18 05/28/18 05/27/18 # Bowel Movements 2 # Incontinent Bowel Movements 1 Narrative: Sedated Trach without any complications---thin secretions around trach - Urinary Catheter Management Indwelling Urethral Catheter Cath placed during this visit: yes, but has since been removed by the nurse Reason for continuing: Continue criteria not met Insertion date: 05/16/18 Insertion time: 02:25 Removal date: 05/18/18 Removal time: 17:30 Straight Cath placed during this visit: yes, but has since been removed by the nurse Reason for continuing: Acute urinary retention Insertion date: 04/30/18 Insertion time: 05:00 Removal date: 04/30/18 Removal time: 05:00 Results - Labs 05/28/18 05:05 05/28/18 05:05 Laboratory Results - last 24 hr 05/27/18 05/28/18 05/28/18 18:13 01:01 05:05 WBC 18.3 H RBC 3.34 L Hgb 9.9 L Hct 30.4 L MCV 90.9 MCH 29.7 MCHC 32.6 RDW 15.6 Plt Count 164 MPV 9.5 Puncture Site Patient Temperature O2 Saturation ABG pH ABG pCO2 ABG pO2 ABG HCO3 ABG O2 Content ABG Base Excess ABG Methemoglobin Noah Test Hemoglobin Carboxyhemoglobin O2 Delivery Device Vent Setting Inspired O2 Critical Value Sodium Potassium Chloride Carbon Dioxide Anion Gap BUN Creatinine Estimated GFR POC Glucose 184 H 161 H Random Glucose Calcium Phosphorus Magnesium 05/28/18 05/28/18 05/28/18 05:05 13:55 14:33 WBC RBC Hgb Hct MCV MCH MCHC RDW Plt Count MPV Puncture Site Right radial Patient Temperature 98.6 O2 Saturation 81 L* ABG pH 7.42 ABG pCO2 43 H ABG pO2 50 L* ABG HCO3 27 H ABG O2 Content 11.8 L ABG Base Excess 2.9 H ABG Methemoglobin 1.5 Noah Test Present Hemoglobin 10.4 L Carboxyhemoglobin 1.1 O2 Delivery Device Ventilator Vent Setting Aprv th5.0,ph 35 Inspired O2 100 Critical Value Yes Sodium 141 Potassium 3.2 L Chloride 104 Carbon Dioxide 27.3 Anion Gap 10 BUN 18 Creatinine 0.53 L Estimated GFR Greater than 89 POC Glucose 166 H Random Glucose 165 H Calcium 8.4 L Phosphorus 2.8 Magnesium 2.2 - Imaging Imaging: ITS Impressions Head CT 04/27/18 11:31 CONCLUSION: 1. Negative CT Head non contrast. . Abdomen/Pelvis CT 04/27/18 11:35 CONCLUSION: 1. Extensive atelectasis in both lower lobes. 2. The Stone catheter needs to be deflated and advanced into the bladder. The catheter is at the level of the prosthetic urethra. 3. No findings to indicate a bowel obstruction are seen. No free air free fluid is identified. Chest CT 04/27/18 11:35 CONCLUSION: 1. Consolidation both posterior lungs with air bronchograms. This could represent bilateral pneumonia or aspiration. Cervical Spine CT 04/27/18 11:36 CONCLUSION: 1. Negative trauma study. Lumbar Spine CT 04/27/18 11:59 CONCLUSION: 1. Negative for acute process 2. There is no evidence for vertebral compression. Head MRI 04/29/18 07:05 CONCLUSION: 1. Negative MRI of the brain. 2. Inflammatory process cannot be entirely excluded. 3. There are no infarcts identified. Abdomen X-Ray 05/17/18 00:00 CONCLUSION: No evidence of bowel obstruction. Dobbhoff tube is seen within the stomach and the proximal port of the nasogastric tube is within the proximal stomach. Venous Doppler Study 05/18/18 00:00 CONCLUSION: 1. Left lower extremity DVT involving the posterior tibial vein from the mid calf to the ankle. 2. No other evidence of DVT at or above the knee in either lower extremity. Cervical Spine MRI 05/20/18 10:29 CONCLUSION: 1. Straightening of the cervical spine. Otherwise, unremarkable exam. Chest X-Ray 05/28/18 13:38 CONCLUSION: Mild interval improvement compared to previous. Assessment and Plan - Assessment (1) Respiratory failure Code(s): J96.90 - Respiratory failure, unspecified, unspecified whether with hypoxia or hypercapnia Status: Acute Plan: 22 year old male with overdose; aspiration; ventilator dependent respiratory failure in need of tracheostomy tube placement. -S/p trach placement -Continue routine trach care ---if able --would benefit from trach gauze placed under trach for absorption of secretions -Vent per CCM---settings increased today -GS will sign off; please call with any questions
[2018-05-28] MEDS ORDERED: Tigecycline Inj 100 MG in Sodium Chlor 0.9% Inj 100 ML IV.SIG ONE (17:00)
[2018-05-28] MEDS ORDERED: Vancomycin Consult Pharmacy OTHER PRN (17:52)
--- NOTE | 2018-05-28 18:05 | P.PNID ---
Subjective Remarks: not doing too well On biphasic, 100 % still low sats fever up to 101-102 Antibiotics: vabomere zyvox Lines: PICC Past Medical History: reviewed. Allergies/Adverse Reactions: Allergies shellfish derived Allergy (Verified 04/29/18 13:12) Anaphylaxis No Known Allergies Allergy (Uncoded 04/29/18 13:12) Objective Vital Signs 05/27/18 18:00 05/27/18 19:00 05/27/18 20:00 Temperature 101.3 F H Pulse Rate 94 H 92 H 92 H Respiratory Rate 30 H 23 10 L Blood Pressure 101/57 L 104/57 L 104/56 L Pulse Oximetry 100 100 100 05/27/18 21:00 05/27/18 22:00 05/27/18 23:00 Temperature Pulse Rate 102 H 90 90 Respiratory Rate 27 H 10 L 10 L Blood Pressure 116/55 L 108/59 L 110/59 L Pulse Oximetry 100 100 100 05/28/18 00:00 05/28/18 00:18 05/28/18 01:00 Temperature 100.9 F H Pulse Rate 100 H 116 H Respiratory Rate 30 H 31 H 29 H Blood Pressure 108/56 L 111/59 L Pulse Oximetry 98 98 98 05/28/18 02:00 05/28/18 03:00 05/28/18 04:00 Temperature 100.5 F H Pulse Rate 129 H 120 H 109 H Respiratory Rate 30 H 19 10 L Blood Pressure 125/62 108/54 L 103/54 L Pulse Oximetry 97 99 100 05/28/18 04:42 05/28/18 05:00 05/28/18 05:21 Temperature Pulse Rate 104 H 107 H Respiratory Rate 30 H 10 L 10 L Blood Pressure 93/50 L 96/61 L Pulse Oximetry 100 100 100 05/28/18 06:00 05/28/18 07:00 05/28/18 07:25 Temperature Pulse Rate 111 H 129 H 120 H Respiratory Rate 10 L 10 L 14 Blood Pressure 95/53 L 101/58 L 99/50 L Pulse Oximetry 100 90 L 99 05/28/18 08:00 05/28/18 08:30 05/28/18 08:44 Temperature 98.2 F Pulse Rate 137 H 124 H 79 Respiratory Rate 22 21 38 H Blood Pressure 102/61 106/74 178/88 H Pulse Oximetry 96 05/28/18 09:00 05/28/18 09:09 05/28/18 09:31 Temperature Pulse Rate 90 116 H Respiratory Rate 37 H 50 H 37 H Blood Pressure 189/101 H 201/92 H Pulse Oximetry 88 L 84 L 05/28/18 10:00 05/28/18 10:01 05/28/18 10:31 Temperature Pulse Rate 101 H 108 H 68 Respiratory Rate 38 H 48 H 39 H Blood Pressure 177/83 H 194/117 H Pulse Oximetry 89 L 86 L 82 L 05/28/18 10:54 05/28/18 11:01 05/28/18 11:31 Temperature Pulse Rate 136 H 131 H 117 H Respiratory Rate 33 H 48 H 61 H Blood Pressure 128/59 L 133/74 167/77 H Pulse Oximetry 90 L 80 L 85 L 05/28/18 12:00 05/28/18 12:01 05/28/18 12:35 Temperature 99.5 F Pulse Rate 143 H 146 H 135 H Respiratory Rate 41 H 46 H 33 H Blood Pressure 204/88 H 149/78 H Pulse Oximetry 90 L 89 L 88 L 05/28/18 13:01 05/28/18 13:31 05/28/18 13:39 Temperature Pulse Rate 149 H 109 H 122 H Respiratory Rate 33 H 22 10 L Blood Pressure 137/93 H 133/61 110/59 L Pulse Oximetry 87 L 88 L 79 L 05/28/18 14:00 05/28/18 14:31 05/28/18 15:01 Temperature Pulse Rate 108 H 99 H 95 H Respiratory Rate 10 L 15 15 Blood Pressure 109/58 L 129/79 111/55 L Pulse Oximetry 84 L 100 99 05/28/18 15:30 05/28/18 16:00 Temperature Pulse Rate 89 87 Respiratory Rate 14 19 Blood Pressure 105/57 L 116/69 Pulse Oximetry 99 97 Intake & Output 05/27/18 05/28/18 05/28/18 18:59 06:59 18:59 Intake Total 3292 / 3292 3164 / 3164 1200 / 1200 Output Total 900 / 900 1055 / 1055 Balance 2392 / 2392 2109 / 2109 1200 / 1200 Weight 150.1 kg Intake: IV 2800 / 2800 2300 / 2300 1200 / 1200 Precedex Inj 1,000 MCG In NS 1000 / 1000 500 / 500 Inj 240 ML @ 0.2 MCG/KG/HR 8.4 mls/hr IV.CONT TITRATE PRN Rx#: [id number] Diprivan 1000 mg/100 ml Inj 1, 600 / 600 500 / 500 200 / 200 000 mg In 100 ml @ 5 MCG/KG/MIN 4.77 mls/hr IV.CONT TITRATE PRN Rx#:[id number] Levaquin 750 mg Premix Inj 150 150 / 150 150 / 150 ML @ 100 mls/hr IV.SIG Q24H DARRION Rx#:[id number] Zyvox 600 mg Premix 300 ML @ 300 / 300 300 / 300 300 mls/hr IV.SIG Q12H DARRION Rx#: [id number] Vabomere Inj 4,000 MG In NS Inj 500 / 500 1000 / 1000 500 / 500 500 ML @ 166.667 mls/hr IV.SIG Q8H DARRION Rx#:[id number] KCl 20 mEq Premix Inj 20 meq In 100 / 100 100 ml @ 50 mls/hr IV.SIG Q2H PRN Rx#:[id number] fentaNYL 10 mcg/mL Premix Drip 250 / 250 250 / 250 2,500 mcg In 250 ml @ 50 MCG/HR 5 mls/hr IV.SIG TITRATE PRN Rx #:[id number] Oral 0 / 0 Tube Feeding 492 / 492 514 / 514 Tube Irrigant 100 / 100 Water Bolus Amount 250 / 250 Output: Urine 900 / 900 950 / 950 Estimated Blood Loss 5 / 5 Gastric Drainage 100 / 100 Orogastric Tube 100 / 100 Other: # Voids 1 # Incontinent Voids 1 Date of Last Bowel Movement 05/27/18 05/28/18 05/28/18 # Bowel Movements 2 # Incontinent Bowel Movements 1 05/25/18 16:30 Sputum - Endotracheal Gram Stain - Final 05/25/18 16:30 Sputum - Endotracheal Sputum Culture - Preliminary Serratia marcescens Klebsiella pneumoniae ESBL pos 05/28/18 02:29 Blood - Peripheral Aerobic Blood Culture - Pending 05/28/18 02:29 Blood - Peripheral Anaerobic Blood Culture - Pending 05/28/18 02:41 Blood - Peripheral Aerobic Blood Culture - Pending 05/28/18 02:41 Blood - Peripheral Anaerobic Blood Culture - Pending Lab - Hematology Results 05/27/18 05/28/18 04:38 05:05 WBC 18.4 H 18.3 H RBC 3.69 L 3.34 L Hgb 11.1 L 9.9 L Hct 33.2 L 30.4 L MCV 90.1 90.9 MCH 30.1 29.7 MCHC 33.4 32.6 RDW 15.4 15.6 Plt Count 166 164 MPV 8.7 9.5 Lab - Chemistry Results 05/26/18 05/26/18 05/27/18 18:51 23:24 04:38 Sodium 137 Potassium 3.6 Chloride 102 Carbon Dioxide 27.8 Anion Gap 7 BUN 19 H Creatinine 0.57 L Estimated GFR Greater than 89 POC Glucose 151 H 147 H Random Glucose 174 H Calcium 8.4 L D Phosphorus 2.7 Magnesium 1.7 05/27/18 05/27/18 05/28/18 05:59 18:13 01:01 Sodium Potassium Chloride Carbon Dioxide Anion Gap BUN Creatinine Estimated GFR POC Glucose 185 H 184 H 161 H Random Glucose Calcium Phosphorus Magnesium 05/28/18 05/28/18 05/28/18 05:05 14:33 17:22 Sodium 141 Potassium 3.2 L Chloride 104 Carbon Dioxide 27.3 Anion Gap 10 BUN 18 Creatinine 0.53 L Estimated GFR Greater than 89 POC Glucose 166 H 127 H Random Glucose 165 H Calcium 8.4 L Phosphorus 2.8 Magnesium 2.2 Imaging: ITS Impressions Head CT 04/27/18 11:31 CONCLUSION: 1. Negative CT Head non contrast. . Abdomen/Pelvis CT 04/27/18 11:35 CONCLUSION: 1. Extensive atelectasis in both lower lobes. 2. The Stone catheter needs to be deflated and advanced into the bladder. The catheter is at the level of the prosthetic urethra. 3. No findings to indicate a bowel obstruction are seen. No free air free fluid is identified. Chest CT 04/27/18 11:35 CONCLUSION: 1. Consolidation both posterior lungs with air bronchograms. This could represent bilateral pneumonia or aspiration. Cervical Spine CT 04/27/18 11:36 CONCLUSION: 1. Negative trauma study. Lumbar Spine CT 04/27/18 11:59 CONCLUSION: 1. Negative for acute process 2. There is no evidence for vertebral compression. Head MRI 04/29/18 07:05 CONCLUSION: 1. Negative MRI of the brain. 2. Inflammatory process cannot be entirely excluded. 3. There are no infarcts identified. Abdomen X-Ray 05/17/18 00:00 CONCLUSION: No evidence of bowel obstruction. Dobbhoff tube is seen within the stomach and the proximal port of the nasogastric tube is within the proximal stomach. Venous Doppler Study 05/18/18 00:00 CONCLUSION: 1. Left lower extremity DVT involving the posterior tibial vein from the mid calf to the ankle. 2. No other evidence of DVT at or above the knee in either lower extremity. Cervical Spine MRI 05/20/18 10:29 CONCLUSION: 1. Straightening of the cervical spine. Otherwise, unremarkable exam. Chest X-Ray 05/28/18 13:38 CONCLUSION: Mild interval improvement compared to previous. Physical Exam: GENERAL: Obese male, on the vent, indistress, diarhpretic SKIN: Cool and dry. no rash. HEAD: Atraumatic. Normocephalic. EYES: Face mildly edematous. NO icterus, no injection ENT: moist mucosae NECK: Trach in place, + bleeding CARDIOVASCULAR: RRR, no murmurs RESPIRATORY: Coarse BS mikhail, decreased at bases GASTROINTESTINAL: soft abdomen, obese, not tender MUSCULOSKELETAL: Extremities without clubbing, cyanosis, resolution of edema. NEUROLOGICAL: awake PSYCHIATRIC: anxious : Stone in place ,urine clear LINE: NO evidence of infection Assessment and Plan - Plan Sepsis ongoing possible new. PNA, probably aspiration Acute VDRF on rotaprone bed. MSSA pneumonia. GNR pneumonia: Kleb, Enterobacter - now with different GNR in sputum Morbid obesity with likely obesity- hypoventilation sd Coag neg staph bacteremia, low grade doubt clin significance New fever Much worsening respiratory status CXR worsening goes along with clin deteriorations On going PNA- now with MDRO (ESBL/KPC) critical, unstable from pulm He is in fact more unstable today Prognosis a getting worse dw Dr Rehan Dee extensively HIgh fever Recs: will change vabomere back to Avycaz will add tygacyl dc zyvox, get bl clx start vancomycin P blood clx start micafungin P blood clx dc levaquine: Steno malt again sputum clx resp panel dw Dr Dee D/W RN
[2018-05-28] MEDS: Ceftazidime/Avibactam Inj 2.5 GM in Sodium Chlor 0.9% Inj 50 ML IV.SIG SCH (18:19)
--- NOTE | 2018-05-28 18:20 | P.PNCC ---
Subjective Subjective Remarks/Hospital Course: Patient is approximately 22 years old male obese, was found on the floor by a family member, downtime is unknown. EMS was called, patient was given Narcan with no response, he was intubated on the scene, apparently GCS 3. Found bag of PCP next to the patient. Patient has history of psychiatric disorder ? bipolar disorder and I am told he has attempted suicide in the past. There is also mention about suspicion of ethylene glycol ingestion, but his serum osmolality is 307 his osmolar gap is only 13. Bicarb is 26, ethylene glycol seems unlikely. Ethanol was negative urine drug screen only positive for benzo. I evaluated the patient in the ICU at the [facility]. Patient had a CT of the head which was negative. Rest of the workup unremarkable except for bibasilar atelectasis/aspiration pneumonia. Patient's white count is elevated at 17.1, glucose is 232 lactic acid was 2.8. He received multiple fluid boluses. At this time he is not on any sedation but remains unresponsive no response to deep pain 04/28 Patient remains intubated off sedation unresponsive. Afebrile. 04/29: MRI of the brain revealed no acute intracranial findings. EEG to be performed tomorrow. More arousable and moves all 4 extremities but not following commands. Placed on dexamethasone E drip. 2 feeds will be restarted 04/30: T-max 101.4. Currently afebrile. No bowel movement since admission. Arousable and follows simple commands late last night but currently on sedation for agitation. Increased FiO2 noted. Will attempt to gently diurese and continue antibiotics for pansensitive staph aureus/group a beta strep sputum 05/01 Patient is sedated with Fentanyl, Diprivan and intubated. T:101.1 at 5am. Placed on APRV overnight. 05/02 Patient is sedated with Diprivan and Fentanyl drips. Tmax 101.3, on PC/AC with PEEP:12, FIO2 80%, IP:30 05/03 Patient is heavily sedated with Diprivan, Fentanyl and Versed . On PC/AC with PEEP: 14 and FIO2 100$ sats 92%, CXR yesterday showed diffuse b/l pulm infiltrates, started on Flolan nebs. Had Tmax 102.6 last night. 05/04 Patient was placed on rotoprone bed yesterday sedated with Diprivan, Versed and Fentanyl infusion and on neuromuscular blockade( Nimbex) On PC/AC His FIO2 requirements is better now on FIO2:50% from 100% with PEEP:14. T:102.6 05/05 Patient remains intubated and sedated on Bumex drip 0.5mg/hr, T:99.7 at 3am. On PC/AC with PEEP:1 and FIO2 60%- sats 95%. 05/06 Patient remains sedated and intubated on rotoprone bed with improvements in his oxygenation. Now on PC/AC with PEEP:10, FIO2 40%. Afebrile. On Bumex drip 0.5mg/hr. 05/07 Patient remains on rotoprone bed sedated and on Nimbex drip. He is also on Bumex drip 0.5mg/hr with good urine output . 05/08 Patient remains sedated and intubated. On Flolan, and Bumex drip. Afebrile. 05/09 Patient desat overnight now on PC/AC with PEEP:10 and FIO2 100% sats 96%. Had T: 100.4 at midnight. Sputum cx 05/07 GNR. Remains sedated on Flolan and Bumex drip. 05/10: Resting in bed. Remains on PC/AC rate increased to 16. FiO2 80%. Low- grade fevers noted. Remains on epoprostenol and bumetanide drips. Hypertension noted. Aspirated this a.m. and so discontinued tube feeding. We will start PPN today. 05/11 Patient remains on rotoprone bed, sedated and intubated. Afebrile. On PC/ AC with PEEP;10 and FIO2 55%.On Flolan and Bumex drip 0.5mg/hr 05/12 Remains sedated, intubated and on Rotoprone bed. PC/AC with PEEP: 12 and FIO2 70% sats 96%. T:100.4 last night. On Flolan and Bumex drip. 05/14: Off rotaprone since yesterday, nimbex discontinued, PEEP 14 and FiO2 50% with sats in mid 90s. Still on flolan. 05/15: No acute issues overnight, plan is to wean PEEP slowly over the weekend for tracheostomy on Friday 05/18. 05/16: Flolan weaned yesterday, tolerated well, will continue to wean today. PEEP down to 10. O2 sats low to mid 90s. 05/17: TFs held overnight for high residuals; KUB showed Dobhoff tube in distal stomach with NGT in proximal stomach. Will hold for now, will need to be NPO at midnight for hopeful trach tomorrow. Continue PPN for now. 05/18: Patient had a desat event last night and had to have PEEP increased to 14. Pulse ox probe changed this morning and noted to be 100, now weaned back down to PEEP 10 and FiO2 60%. Will continue to wean FiO2. Flolan off since yesterday. Trach today or tomorrow. 05/19: Trach today. PEEP 8, FiO2 40%. No overnight events. 05/20: Trach performed in OR yesterday afternoon, no immediate complications, sent for MRI C spine this morning by neurology to evaluate for myelopathy which showed no acute abnormalities. Sedation weaned, patient now awake and alert, follows commands, mouths words. 05/21: Currently remains intubated sedated. Requiring heavy sedation for vent synchrony. Currently on propofol fentanyl and Versed infusions. Still wakes up and weakly follows. We will lighten sedation attempt CPAP and possible T- piece 2-4 hours today 05/22: Currently wide awake on the vent despite continuous sedation. Mother requests restarting Wellbutrin which I have ordered. Did not tolerate T-piece yesterday. Attempt again today 05/23: Remains intubated currently heavily sedated as the patient showed violent behavior yesterday. Threatening to hit the staff. Required heavy sedation since then. Remains on propofol fentanyl and Precedex now. Wakes up easily follows commands. Mother confirms history of bipolar disorder (Dr. Kaye was psychiatrist). I have requested psych consult to assist with management of agitation/violent behavior. Hold Wellbutrin which was started yesterday 05/24 appears comfortable now on the vent, however was very agitated overnight requiring increased sedation and caused severe hypoxia currently FiO2 is at 80% . Chest x-ray is pending. I will start scheduled Haldol 2 mg IV every 6 hours per psych recommendation. Patient states that he has night terrors which causes him to be agitated at night I will discuss with with psychiatry and start appropriate treatments 05/25: Remains heavily sedated remains heavily sedated for ventilator synchrony as the patient gets very agitated and hypoxic. They had to go up on FiO2 again currently 80%. I have increased the PEEP to 14. Chest x-ray shows some pulmonary vascular congestion and low lung volumes. Hypoxia most likely from severe atelectasis. I will increase diuresis to achieve negative balance 05/26: fio2 worsening to 100%. spiking fevers again. sputum with new GNRs. discussed with ID- will broaden abx. agitation persists. 05/27: no improvements. fio2 still elevated. sputum still growing klebisella and serratia. still highly agitated and minimal improvements with current sedation plan. in discussing with bedside RN: precedex does not appear to be providing any benefit, but adding 2L/day ivf, which is hurting fluid balance. 05/28: clinically decompensated today. hypoxic requiring bag valve mask support. spo2 70s%. likely combination of agitation, volume overload, persistent pneumonia, fibrotic phase ARDS. still + fluid balance despite all our efforts. restarting bumex drip. long discussion with father regarding prognosis and agitation. will again try to modify sedation plan to minimize unnecessary sedatives and achieve RASS 0 goal. Objective Vital Signs / I&O: Vital Signs 05/27/18 19:00 05/27/18 20:00 05/27/18 21:00 Temperature 38.5 C H Pulse Rate 92 H 92 H 102 H Respiratory Rate 23 10 L 27 H Blood Pressure 104/57 L 104/56 L 116/55 L Pulse Oximetry 100 100 100 05/27/18 22:00 05/27/18 23:00 05/28/18 00:00 Temperature 38.3 C H Pulse Rate 90 90 100 H Respiratory Rate 10 L 10 L 30 H Blood Pressure 108/59 L 110/59 L 108/56 L Pulse Oximetry 100 100 98 05/28/18 00:18 05/28/18 01:00 05/28/18 02:00 Temperature Pulse Rate 116 H 129 H Respiratory Rate 31 H 29 H 30 H Blood Pressure 111/59 L 125/62 Pulse Oximetry 98 98 97 05/28/18 03:00 05/28/18 04:00 05/28/18 04:42 Temperature 38.1 C H Pulse Rate 120 H 109 H Respiratory Rate 19 10 L 30 H Blood Pressure 108/54 L 103/54 L Pulse Oximetry 99 100 100 05/28/18 05:00 05/28/18 05:21 05/28/18 06:00 Temperature Pulse Rate 104 H 107 H 111 H Respiratory Rate 10 L 10 L 10 L Blood Pressure 93/50 L 96/61 L 95/53 L Pulse Oximetry 100 100 100 05/28/18 07:00 05/28/18 07:25 05/28/18 08:00 Temperature 36.8 C Pulse Rate 129 H 120 H 137 H Respiratory Rate 10 L 14 22 Blood Pressure 101/58 L 99/50 L 102/61 Pulse Oximetry 90 L 99 96 05/28/18 08:30 05/28/18 08:44 05/28/18 09:00 Temperature Pulse Rate 124 H 79 90 Respiratory Rate 21 38 H 37 H Blood Pressure 106/74 178/88 H 189/101 H Pulse Oximetry 05/28/18 09:09 05/28/18 09:31 05/28/18 10:00 Temperature Pulse Rate 116 H 101 H Respiratory Rate 50 H 37 H 38 H Blood Pressure 201/92 H Pulse Oximetry 88 L 84 L 89 L 05/28/18 10:01 05/28/18 10:31 05/28/18 10:54 Temperature Pulse Rate 108 H 68 136 H Respiratory Rate 48 H 39 H 33 H Blood Pressure 177/83 H 194/117 H 128/59 L Pulse Oximetry 86 L 82 L 90 L 05/28/18 11:01 05/28/18 11:31 05/28/18 12:00 Temperature 37.5 C Pulse Rate 131 H 117 H 143 H Respiratory Rate 48 H 61 H 41 H Blood Pressure 133/74 167/77 H Pulse Oximetry 80 L 85 L 90 L 05/28/18 12:01 05/28/18 12:35 05/28/18 13:01 Temperature Pulse Rate 146 H 135 H 149 H Respiratory Rate 46 H 33 H 33 H Blood Pressure 204/88 H 149/78 H 137/93 H Pulse Oximetry 89 L 88 L 87 L 05/28/18 13:31 05/28/18 13:39 05/28/18 14:00 Temperature Pulse Rate 109 H 122 H 108 H Respiratory Rate 22 10 L 10 L Blood Pressure 133/61 110/59 L 109/58 L Pulse Oximetry 88 L 79 L 84 L 05/28/18 14:31 05/28/18 15:01 05/28/18 15:30 Temperature Pulse Rate 99 H 95 H 89 Respiratory Rate 15 15 14 Blood Pressure 129/79 111/55 L 105/57 L Pulse Oximetry 100 99 99 05/28/18 16:00 05/28/18 18:01 Temperature Pulse Rate 87 Respiratory Rate 19 14 Blood Pressure 116/69 Pulse Oximetry 97 97 Intake & Output 05/27/18 05/28/18 05/28/18 18:59 06:59 18:59 Intake Total 3292 / 3292 3164 / 3164 1200 / 1200 Output Total 900 / 900 1055 / 1055 Balance 2392 / 2392 2109 / 2109 1200 / 1200 Weight 150.1 kg Intake: IV 2800 / 2800 2300 / 2300 1200 / 1200 Precedex Inj 1,000 MCG In NS 1000 / 1000 500 / 500 Inj 240 ML @ 0.2 MCG/KG/HR 8.4 mls/hr IV.CONT TITRATE PRN Rx#: [id number] Diprivan 1000 mg/100 ml Inj 1, 600 / 600 500 / 500 200 / 200 000 mg In 100 ml @ 5 MCG/KG/MIN 4.77 mls/hr IV.CONT TITRATE PRN Rx#:[id number] Levaquin 750 mg Premix Inj 150 150 / 150 150 / 150 ML @ 100 mls/hr IV.SIG Q24H DARRION Rx#:[id number] Zyvox 600 mg Premix 300 ML @ 300 / 300 300 / 300 300 mls/hr IV.SIG Q12H DARRION Rx#: [id number] Vabomere Inj 4,000 MG In NS Inj 500 / 500 1000 / 1000 500 / 500 500 ML @ 166.667 mls/hr IV.SIG Q8H DARRION Rx#:[id number] KCl 20 mEq Premix Inj 20 meq In 100 / 100 100 ml @ 50 mls/hr IV.SIG Q2H PRN Rx#:[id number] fentaNYL 10 mcg/mL Premix Drip 250 / 250 250 / 250 2,500 mcg In 250 ml @ 50 MCG/HR 5 mls/hr IV.SIG TITRATE PRN Rx #:[id number] Oral 0 / 0 Tube Feeding 492 / 492 514 / 514 Tube Irrigant 100 / 100 Water Bolus Amount 250 / 250 Output: Urine 900 / 900 950 / 950 Estimated Blood Loss 5 / 5 Gastric Drainage 100 / 100 Orogastric Tube 100 / 100 Other: # Voids 1 # Incontinent Voids 1 Date of Last Bowel Movement 05/27/18 05/28/18 05/28/18 # Bowel Movements 2 # Incontinent Bowel Movements 1 Result Diagrams: 05/28/18 05:05 05/28/18 05:05 Objective Remarks: GENERAL: Lying in bed following commands but severely agitated. SKIN: diaphoretic HEAD: NCAT NECK: Supple, tracheostomy present, clean and dry CARDIOVASCULAR: tachycardic rate in the 130s, regular rhythm. sinus RESPIRATORY: Equal breath sounds bilaterally. severely hypoxic. initailly on APRV 30/0 5/0.9 100%, then changed back to PC/AC Phigh 35, PEEP 10, RR 14. fio2 remains at 100%. GASTROINTESTINAL: Abdomen obese, soft, non-tender in all quadrants MUSCULOSKELETAL: Trace peripheral edema, improving Neuro: Ventilated via tracheostomy, sedated but wide awake. severely agitated and RASS +2. CAM+. Assessment and Plan - Assessment and Plan Plan: Assessment: 22yM with severe hypoxic respiratory failure and multiorgan dysfunction. clinically worse today and decompensating. family asking about repeat pronation: given his severely resistant pneumonia combined with ARDS, volume overload and 3 week life-support course, I do not think pronation would help his overall prognosis, and if we cannot manage this with our current strategy, I think palliation and hospice would be more appropriate than additional pronation attempts. very critically ill. prognosis guarded at best. NEURO/PSYCH: Acute metabolic encephalopathy Suspected PCP overdose Suspected ethylene glycol overdose Suicide attempt Critical illness myopathy Bipolar disorder Severe agitated delirium -Requiring heavy sedation for vent synchrony. start seroquel 100mg po q8h (family says this works well to sedate him) haldol to 5mg iv q4h scheduled d/c precedex, fentanyl one-time dose of methadone 50mg iv x 1 increase morphine frequency to 10mg iv q3h continue clonidine 0.3mg po TID increase propranolol to 60mg po q6h -Delirium precautions * Lights on/ shades up during the day, limit night time disruptions, frequent reorientation, patient's parents brought his glasses in from home and he should be provided with these whenever awake -Wellbutrin held per psych rec - continue melatonin 10mg po qHS for sleep -CT of the head negative. MRI of brain negative. MRI C spine negative. -EEG 05/18, 04/30, 04/28 with no epileptic activity RESP: Acute hypoxemic respiratory failure-now worsening Bilateral atelectasis ARDS resolving Bibasilar aspiration pneumonitis Tobacco abuse -Continue with vent support keep sats >92% -Desaturated again PC/AC 14, phigh 35, peep 10, fio2 100%. -Chest x-ray shows low lung volumes and pulmonary vascular congestion -s/p tracheostomy, POD #9 -Cannot do SBT secondary to severe hypoxia -Ventilator bundle. Bronchodilators (ipratropium/albuterol, Q4), Solumedrol reduced to 20mg Q12-05/21/2018 -s/p bronch 05/02 thick secretions suctioned to clear. No evidence of EBL or bleeding. -Nicotine patch CV: Essential hypertension -Monitor HR and BP keep MAP>65mmHg -clonidine 0.3mg po TID d/c lopressor increase propranolol 60mg po q6h -Echo 04/28: EF 60-65%, PASP 36mmHg GI: Elevated ALT Hypoalbuminemia - IV famotidine. -Docusate serum/senna 1 tablet twice daily for bowel regimen. Lactulose 30 cc twice daily and MiraLAX 17 g twice daily. Renal/FEN/: -Monitor renal function, I/O's, electrolytes replacement as needed -Tube feeds to goal - start bumex infusion diamox 500mg iv q8h add daily metolazone 5mg ID: MSSA/group A beta strep pneumonia Superadded Enterobacter/Klebsiella pneumonia ESBL Abx per ID 05/07 Sputm cx: Kleb pneumonia, Enterobacter. Repeat cultures from 05/13 have no growth at 5 days, another set of cultures sent 05/18 and pending 04/27 Sputum: Staph aureus/MSSA and beta strep not group A. 05/03 BC: Coag neg staph 05/02 bronch cx: Staph Aureus HEME: Normocytic anemia Leukocytosis-- resolved -Anemia of chronic illness, stable ENDO/FEN: Hyperglycemia -Electrolyte replacement per protocol -Sliding scale insulin -Continue solumedrol q12 MSK: Myopathy of critical illness, severe deconditioning PT/ OT evals appreciated, multipodus boot ordered, patient may benefit from wrist splints/ passive ROM exercises, Up to stretcher chair daily PROPH: GI prophylaxis- On Pepcid DVT prophylaxis- Lovenox 40mg SQ BID Doppler US LE: thrombosis of the posterior tibial vein within the calf bilaterally. Repeat duplex on 05/18 shows persistent LLE below the knee DVT which has not propagated proximally. No RLE DVT seen. Case management consulted to help with discharge planning. Patient will need aggressive PT/ OT and will likely need prolonged wean from ventilator given extent of physical deconditioning. LINES: -PICC placed on 05/08/18 critically ill. at bedside multiple times throughout the day actively managing hypoxemia, making vent changes, managing agitation, family discussions. Critical care time: 81 minutes, exclusive of separately billable procedures.
[2018-05-28] MEDS: metOLazone 5 MG Tablet PO SCH (18:35)
[2018-05-28] MEDS: Micafungin Inj 150 MG in Sodium Chlor 0.9% Inj 100 ML IV.SIG SCH (20:05)
[2018-05-28] MEDS: Vancomycin Inj 2,250 MG in Sodium Chlor 0.9% Inj 500 ML IV.SIG SCH (21:22)
[2018-05-28] MEDS: Melatonin 5 MG Tablet PO SCH (21:23)
[2018-05-28 21:27] LABS: Amorphous Sediment,Urine Occasional /hpf; Bilirubin,Urine Negative (Negative); Clarity,Urine Cloudy (Clear); Color,Urine Yellow (Yellw/Straw); Glucose,Urine (UA) Negative (Negative); Leukocyte Esterase,Urine Negative (Negative); Mucus,Urine Few /lpf (Occasional); Nitrite,Urine Negative (Negative); Specific Gravity,Urine 1.019 (1.002-1.035)
[2018-05-29] MEDS: Insulin NovoLOG Aspart Correctional Sugar Inj SQ SCH ×4 (00:26→17:30)
[2018-05-29] MEDS: Oral Hygiene Kit OROPHARYNG SCH ×4 (00:37→15:33)
[2018-05-29] MEDS: Artificial Tears Opth Drops 15 ML Bottle EACH EYE SCH ×3 (00:37→15:33)
[2018-05-29] MEDS: Propofol 1000 mg/100 ml Inj 1,000 MG/100 ML BOTTLE IV.CONT PRN ×10 (01:09→21:44)
[2018-05-29] MEDS: Ceftazidime/Avibactam Inj 2.5 GM in Sodium Chlor 0.9% Inj 50 ML IV.SIG SCH ×3 (01:39→17:30)
[2018-05-29] MEDS: Haloperidol Inj 5 MG/ML Ampul IV.PUSH SCH ×6 (01:39→21:20)
[2018-05-29] MEDS: Vancomycin Inj 2,250 MG in Sodium Chlor 0.9% Inj 500 ML IV.SIG SCH ×3 (04:41→21:55)
[2018-05-29] MEDS: QUEtiapine 100 MG Tablet PO SCH ×3 (05:47→21:21)
[2018-05-29 07:41] LABS: Anion Gap 9 meq/L (5-15); Blood Urea Nitrogen 29 mg/dL (7-18); Calcium 8.9 mg/dL (8.5-10.1); Carbon Dioxide 30.4 meq/L (21.0-32.0); Chloride 97 meq/L (98-107); Glomerular Filtration Rate Greater Than 89 mL/min (>89); Glucose,Random 140 mg/dL (74-106); Magnesium 2.5 mg/dL (1.5-2.5); Phosphorus 4.4 mg/dL (2.5-4.9)
[2018-05-29 07:44] LABS: Potassium 4.9 meq/L (3.5-5.1); Sodium 136 meq/L (136-145)
[2018-05-29] MEDS: MethylPREDNISolone Sod Succinate Inj 40 MG/ML Vial IV.PUSH SCH (08:49)
[2018-05-29] MEDS: Enoxaparin Inj 40 MG/0.4 ML Syringe SQ SCH ×2 (08:50→21:21)
[2018-05-29] MEDS: Pantoprazole Inj 40 MG Vial IV.PUSH SCH (08:50)
[2018-05-29] MEDS: Senna/Docusate Sodium 8.6/50 MG Tablet PO SCH ×2 (08:51→21:22)
[2018-05-29] MEDS: metOLazone 5 MG Tablet PO SCH (08:51)
[2018-05-29] MEDS: Potassium Bicarbonate 25 MEQ Effervescent Tablet NG/OG SCH ×2 (08:52→21:20)
[2018-05-29] MEDS: Chlorhexidine 0.12% Oral Kit 15 ML UDC OROPHARYNG SCH ×2 (08:53→20:58)
[2018-05-29] MEDS: Collagenase Oint 30 GM Tube TOPICAL SCH (08:54)
[2018-05-29] MEDS: Heparin Central Flush 100 UNIT/ML 5 ML Vial IV.FLUSH SCH (08:54)
[2018-05-29] MEDS: Erythromycin Ethylsuccinate Susp 400 MG/5ML 100 ML Bottle NG/OG SCH ×3 (11:31→17:30)
[2018-05-29 11:46] LABS: Hematocrit 35.4 % (39.0-51.0); Hemoglobin 11.7 gm/dL (13.0-17.0); Mean Corpuscular Hemoglobin 29.8 pg (27.0-34.0); Mean Corpuscular Volume 90.3 fL (80.0-100.0); Mean Platelet Volume 9.8 fL (7.0-11.0); Platelet Count 216 th/mm3 (150-450); Red Blood Count 3.91 mil/mm3 (4.50-5.90); Red Cell Distribution Width 15.2 % (11.6-17.2); White Blood Count 17.9 th/mm3 (4.0-11.0)
[2018-05-29] MEDS: Bumetanide Inj 25 MG/100 ML BAG IV.CONT SCH (15:01)
--- NOTE | 2018-05-29 15:21 | P.PNID ---
Subjective Remarks: not doing too well On biphasic, 70 % still low sats fever resolved Antibiotics: avycaz tygacyl vancomycin micafungin Lines: PICC Past Medical History: reviewed. Allergies/Adverse Reactions: Allergies shellfish derived Allergy (Verified 04/29/18 13:12) Anaphylaxis No Known Allergies Allergy (Uncoded 04/29/18 13:12) Objective Vital Signs 05/28/18 15:30 05/28/18 16:00 05/28/18 16:30 Temperature Pulse Rate 89 87 86 Respiratory Rate 14 19 14 Blood Pressure 105/57 L 116/69 108/57 L Pulse Oximetry 99 97 99 05/28/18 17:00 05/28/18 17:30 05/28/18 18:00 Temperature Pulse Rate 82 82 86 Respiratory Rate 14 14 14 Blood Pressure 114/59 L 123/59 L Pulse Oximetry 100 97 96 05/28/18 18:01 05/28/18 18:30 05/28/18 19:00 Temperature Pulse Rate 84 110 H 100 H Respiratory Rate 14 16 14 Blood Pressure 126/61 114/54 L 99/50 L Pulse Oximetry 96 91 L 98 05/28/18 19:30 05/28/18 20:00 05/28/18 20:04 Temperature 99.3 F Pulse Rate 92 H 88 Respiratory Rate 14 14 14 Blood Pressure 92/54 L 102/50 L Pulse Oximetry 100 99 99 05/28/18 20:30 05/28/18 21:00 05/28/18 21:30 Temperature Pulse Rate 84 80 78 Respiratory Rate 14 14 15 Blood Pressure 105/51 L 111/56 L 113/59 L Pulse Oximetry 100 100 98 05/28/18 22:00 05/28/18 22:01 05/28/18 22:30 Temperature Pulse Rate 82 82 81 Respiratory Rate 14 14 14 Blood Pressure 107/58 L 108/56 L Pulse Oximetry 98 98 98 05/28/18 23:00 05/28/18 23:30 05/29/18 00:00 Temperature 99.2 F Pulse Rate 83 84 86 Respiratory Rate 14 14 14 Blood Pressure 108/55 L 109/59 L 107/59 L Pulse Oximetry 98 97 97 05/29/18 00:30 05/29/18 00:38 05/29/18 01:00 Temperature Pulse Rate 81 83 Respiratory Rate 14 14 14 Blood Pressure 104/57 L 107/58 L Pulse Oximetry 97 97 96 05/29/18 01:30 05/29/18 02:00 05/29/18 02:15 Temperature Pulse Rate 81 86 92 H Respiratory Rate 14 14 16 Blood Pressure 107/56 L 106/63 110/54 L Pulse Oximetry 96 95 05/29/18 02:30 05/29/18 03:00 05/29/18 03:31 Temperature Pulse Rate 86 86 87 Respiratory Rate 14 17 15 Blood Pressure 108/57 L 110/59 L 104/51 L Pulse Oximetry 96 96 96 05/29/18 03:51 05/29/18 04:00 05/29/18 04:30 Temperature 98.8 F Pulse Rate 84 86 Respiratory Rate 14 14 15 Blood Pressure 105/55 L 107/56 L Pulse Oximetry 97 96 96 05/29/18 05:00 05/29/18 05:31 05/29/18 08:00 Temperature 98.5 F Pulse Rate 82 85 85 Respiratory Rate 14 14 14 Blood Pressure 112/56 L 109/53 L 103/51 L Pulse Oximetry 97 97 98 05/29/18 11:59 05/29/18 12:00 Temperature 98.3 F Pulse Rate 86 Respiratory Rate 14 14 Blood Pressure 108/53 L Pulse Oximetry 96 95 Intake & Output 05/28/18 05/29/18 05/29/18 18:59 06:59 18:59 Intake Total 1627 / 1627 2978.0 / 2978.0 350 / 350 Output Total 1050 / 1050 8250 / 8250 Balance 577 / 577 -5272.0 / -5272.0 350 / 350 Weight 142.7 kg Intake: IV 1200 / 1200 2045.0 / 2045.0 350 / 350 Bumex Inj 25 mg In 100 ml @ 1 100 / 100 MG/HR 4 mls/hr IV.CONT .Q24H [facility] Rx#:[id number] Diprivan 1000 mg/100 ml Inj 1, 200 / 200 600 / 600 200 / 200 000 mg In 100 ml @ 5 MCG/KG/MIN 4.77 mls/hr IV.CONT TITRATE PRN Rx#:[id number] Avycaz Inj 2.5 GM In NS Inj 50 100 / 100 50 / 50 ML @ 25 mls/hr IV.SIG Q8H [facility] Rx#:[id number] Levaquin 750 mg Premix Inj 150 150 / 150 ML @ 100 mls/hr IV.SIG Q24H [facility] Rx#:[id number] Vabomere Inj 4,000 MG In NS Inj 500 / 500 500 ML @ 166.667 mls/hr IV.SIG Q8H [facility] Rx#:[id number] Mycamine Inj 150 MG In NS Inj 100 / 100 100 ML @ 100 mls/hr IV.SIG Q24H [facility] Rx#:[id number] KCl 20 mEq Premix Inj 20 meq In 100 / 100 100 ml @ 50 mls/hr IV.SIG Q2H PRN Rx#:[id number] Tygacil Inj 100 MG In NS Inj 100 / 100 100 ML @ 200 mls/hr IV.SIG ONCE ONE Rx#:[id number] Tygacil Inj 50 MG In NS Inj 100 100 / 100 ML @ 200 mls/hr IV.SIG Q12H [facility] Rx#:[id number] Vancomycin Inj 2,250 MG In NS 1045.0 / 1045.0 Inj 500 ML @ 250 mls/hr IV.SIG Q8H [facility] Rx#:[id number] fentaNYL 10 mcg/mL Premix Drip 250 / 250 2,500 mcg In 250 ml @ 50 MCG/HR 5 mls/hr IV.SIG TITRATE PRN Rx #:[id number] Oral 0 / 0 Tube Feeding 307 / 307 563 / 563 Tube Irrigant 120 / 120 120 / 120 Water Bolus Amount 250 / 250 Output: Stool 100 / 100 Urine Amount (Catheter) 1050 / 1050 8150 / 8150 Indwelling Urethral Catheter 1050 / 1050 8150 / 8150 Other: Date of Last Bowel Movement 05/27/18 05/28/18 05/29/18 # Bowel Movements 2 2 # Incontinent Bowel Movements 1 05/28/18 02:29 Blood - Peripheral Aerobic Blood Culture - Preliminary No growth in 1 day 05/28/18 02:29 Blood - Peripheral Anaerobic Blood Culture - Preliminary No growth in 1 day 05/28/18 02:41 Blood - Peripheral Aerobic Blood Culture - Preliminary No growth in 1 day 05/28/18 02:41 Blood - Peripheral Anaerobic Blood Culture - Preliminary No growth in 1 day 05/25/18 16:30 Sputum - Endotracheal Gram Stain - Final 05/25/18 16:30 Sputum - Endotracheal Sputum Culture - Preliminary Serratia marcescens Klebsiella pneumoniae ESBL pos Lab - Hematology Results 05/28/18 05/29/18 05:05 11:15 WBC 18.3 H 17.9 H RBC 3.34 L 3.91 L Hgb 9.9 L 11.7 L Hct 30.4 L 35.4 L MCV 90.9 90.3 MCH 29.7 29.8 MCHC 32.6 33.0 RDW 15.6 15.2 Plt Count 164 216 D MPV 9.5 9.8 Lab - Chemistry Results 05/27/18 05/28/18 05/28/18 18:13 01:01 05:05 Sodium 141 Potassium 3.2 L Chloride 104 Carbon Dioxide 27.3 Anion Gap 10 BUN 18 Creatinine 0.53 L Estimated GFR Greater than 89 POC Glucose 184 H 161 H Random Glucose 165 H Calcium 8.4 L Phosphorus 2.8 Magnesium 2.2 05/28/18 05/28/18 05/29/18 14:33 17:22 00:08 Sodium Potassium Chloride Carbon Dioxide Anion Gap BUN Creatinine Estimated GFR POC Glucose 166 H 127 H 152 H Random Glucose Calcium Phosphorus Magnesium 05/29/18 05/29/18 05/29/18 05:28 06:50 11:28 Sodium 136 Potassium 4.9 D Chloride 97 L Carbon Dioxide 30.4 Anion Gap 9 BUN 29 H Creatinine 0.80 Estimated GFR Greater than 89 POC Glucose 164 H 131 H Random Glucose 140 H Calcium 8.9 Phosphorus 4.4 D Magnesium 2.5 Imaging: ITS Impressions Head CT 04/27/18 11:31 CONCLUSION: 1. Negative CT Head non contrast. . Abdomen/Pelvis CT 04/27/18 11:35 CONCLUSION: 1. Extensive atelectasis in both lower lobes. 2. The Stone catheter needs to be deflated and advanced into the bladder. The catheter is at the level of the prosthetic urethra. 3. No findings to indicate a bowel obstruction are seen. No free air free fluid is identified. Chest CT 04/27/18 11:35 CONCLUSION: 1. Consolidation both posterior lungs with air bronchograms. This could represent bilateral pneumonia or aspiration. Cervical Spine CT 04/27/18 11:36 CONCLUSION: 1. Negative trauma study. Lumbar Spine CT 04/27/18 11:59 CONCLUSION: 1. Negative for acute process 2. There is no evidence for vertebral compression. Head MRI 04/29/18 07:05 CONCLUSION: 1. Negative MRI of the brain. 2. Inflammatory process cannot be entirely excluded. 3. There are no infarcts identified. Abdomen X-Ray 05/17/18 00:00 CONCLUSION: No evidence of bowel obstruction. Dobbhoff tube is seen within the stomach and the proximal port of the nasogastric tube is within the proximal stomach. Venous Doppler Study 05/18/18 00:00 CONCLUSION: 1. Left lower extremity DVT involving the posterior tibial vein from the mid calf to the ankle. 2. No other evidence of DVT at or above the knee in either lower extremity. Cervical Spine MRI 05/20/18 10:29 CONCLUSION: 1. Straightening of the cervical spine. Otherwise, unremarkable exam. Chest X-Ray 05/28/18 13:38 CONCLUSION: Mild interval improvement compared to previous. Physical Exam: GENERAL: Obese male, on the vent, heavily sedated SKIN: Cool and dry. no rash. HEAD: Atraumatic. Normocephalic. EYES: Face mildly edematous. NO icterus, no injection ENT: moist mucosae NECK: Trach in place, + bleeding CARDIOVASCULAR: RRR, no murmurs RESPIRATORY: Coarse BS mikhail, decreased at bases GASTROINTESTINAL: soft abdomen, obese, not tender MUSCULOSKELETAL: Extremities without clubbing, cyanosis, resolution of edema. NEUROLOGICAL: awake PSYCHIATRIC: unabble to assess : Stone in place ,urine clear LINE: NO evidence of infection Assessment and Plan - Plan Sepsis ongoing possible new. PNA, probably aspiration Acute VDRF on rotaprone bed. MSSA pneumonia. GNR pneumonia: Kleb, Enterobacter - now with different GNR in sputum Morbid obesity with likely obesity- hypoventilation sd Coag neg staph bacteremia, low grade doubt clin significance New fever Much worsening respiratory status CXR worsening goes along with clin deteriorations On going PNA- now with MDRO (ESBL/KPC) critical, unstable from pulm He is in fact more unstable today Prognosis a getting worse sanket Dee extensively HIgh fever Recs: cont Avycaz cont tygacyl cont vancomycin P blood clx cont micafungin P blood clx again sputum clx resp panel sanket [facility]es family @ b/s D/W RN
--- NOTE | 2018-05-29 16:38 | P.PNCC ---
Subjective Subjective Remarks/Hospital Course: Patient is approximately 22 years old male obese, was found on the floor by a family member, downtime is unknown. EMS was called, patient was given Narcan with no response, he was intubated on the scene, apparently GCS 3. Found bag of PCP next to the patient. Patient has history of psychiatric disorder ? bipolar disorder and I am told he has attempted suicide in the past. There is also mention about suspicion of ethylene glycol ingestion, but his serum osmolality is 307 his osmolar gap is only 13. Bicarb is 26, ethylene glycol seems unlikely. Ethanol was negative urine drug screen only positive for benzo. I evaluated the patient in the ICU at the [facility]. Patient had a CT of the head which was negative. Rest of the workup unremarkable except for bibasilar atelectasis/aspiration pneumonia. Patient's white count is elevated at 17.1, glucose is 232 lactic acid was 2.8. He received multiple fluid boluses. At this time he is not on any sedation but remains unresponsive no response to deep pain 04/28 Patient remains intubated off sedation unresponsive. Afebrile. 04/29: MRI of the brain revealed no acute intracranial findings. EEG to be performed tomorrow. More arousable and moves all 4 extremities but not following commands. Placed on dexamethasone E drip. 2 feeds will be restarted 04/30: T-max 101.4. Currently afebrile. No bowel movement since admission. Arousable and follows simple commands late last night but currently on sedation for agitation. Increased FiO2 noted. Will attempt to gently diurese and continue antibiotics for pansensitive staph aureus/group a beta strep sputum 05/01 Patient is sedated with Fentanyl, Diprivan and intubated. T:101.1 at 5am. Placed on APRV overnight. 05/02 Patient is sedated with Diprivan and Fentanyl drips. Tmax 101.3, on PC/AC with PEEP:12, FIO2 80%, IP:30 05/03 Patient is heavily sedated with Diprivan, Fentanyl and Versed . On PC/AC with PEEP: 14 and FIO2 100$ sats 92%, CXR yesterday showed diffuse b/l pulm infiltrates, started on Flolan nebs. Had Tmax 102.6 last night. 05/04 Patient was placed on rotoprone bed yesterday sedated with Diprivan, Versed and Fentanyl infusion and on neuromuscular blockade( Nimbex) On PC/AC His FIO2 requirements is better now on FIO2:50% from 100% with PEEP:14. T:102.6 05/05 Patient remains intubated and sedated on Bumex drip 0.5mg/hr, T:99.7 at 3am. On PC/AC with PEEP:1 and FIO2 60%- sats 95%. 05/06 Patient remains sedated and intubated on rotoprone bed with improvements in his oxygenation. Now on PC/AC with PEEP:10, FIO2 40%. Afebrile. On Bumex drip 0.5mg/hr. 05/07 Patient remains on rotoprone bed sedated and on Nimbex drip. He is also on Bumex drip 0.5mg/hr with good urine output . 05/08 Patient remains sedated and intubated. On Flolan, and Bumex drip. Afebrile. 05/09 Patient desat overnight now on PC/AC with PEEP:10 and FIO2 100% sats 96%. Had T: 100.4 at midnight. Sputum cx 05/07 GNR. Remains sedated on Flolan and Bumex drip. 05/10: Resting in bed. Remains on PC/AC rate increased to 16. FiO2 80%. Low- grade fevers noted. Remains on epoprostenol and bumetanide drips. Hypertension noted. Aspirated this a.m. and so discontinued tube feeding. We will start PPN today. 05/11 Patient remains on rotoprone bed, sedated and intubated. Afebrile. On PC/ AC with PEEP;10 and FIO2 55%.On Flolan and Bumex drip 0.5mg/hr 05/12 Remains sedated, intubated and on Rotoprone bed. PC/AC with PEEP: 12 and FIO2 70% sats 96%. T:100.4 last night. On Flolan and Bumex drip. 05/14: Off rotaprone since yesterday, nimbex discontinued, PEEP 14 and FiO2 50% with sats in mid 90s. Still on flolan. 05/15: No acute issues overnight, plan is to wean PEEP slowly over the weekend for tracheostomy on Friday 05/18. 05/16: Flolan weaned yesterday, tolerated well, will continue to wean today. PEEP down to 10. O2 sats low to mid 90s. 05/17: TFs held overnight for high residuals; KUB showed Dobhoff tube in distal stomach with NGT in proximal stomach. Will hold for now, will need to be NPO at midnight for hopeful trach tomorrow. Continue PPN for now. 05/18: Patient had a desat event last night and had to have PEEP increased to 14. Pulse ox probe changed this morning and noted to be 100, now weaned back down to PEEP 10 and FiO2 60%. Will continue to wean FiO2. Flolan off since yesterday. Trach today or tomorrow. 05/19: Trach today. PEEP 8, FiO2 40%. No overnight events. 05/20: Trach performed in OR yesterday afternoon, no immediate complications, sent for MRI C spine this morning by neurology to evaluate for myelopathy which showed no acute abnormalities. Sedation weaned, patient now awake and alert, follows commands, mouths words. 05/21: Currently remains intubated sedated. Requiring heavy sedation for vent synchrony. Currently on propofol fentanyl and Versed infusions. Still wakes up and weakly follows. We will lighten sedation attempt CPAP and possible T- piece 2-4 hours today 05/22: Currently wide awake on the vent despite continuous sedation. Mother requests restarting Wellbutrin which I have ordered. Did not tolerate T-piece yesterday. Attempt again today 05/23: Remains intubated currently heavily sedated as the patient showed violent behavior yesterday. Threatening to hit the staff. Required heavy sedation since then. Remains on propofol fentanyl and Precedex now. Wakes up easily follows commands. Mother confirms history of bipolar disorder (Dr. Kaye was psychiatrist). I have requested psych consult to assist with management of agitation/violent behavior. Hold Wellbutrin which was started yesterday 05/24 appears comfortable now on the vent, however was very agitated overnight requiring increased sedation and caused severe hypoxia currently FiO2 is at 80% . Chest x-ray is pending. I will start scheduled Haldol 2 mg IV every 6 hours per psych recommendation. Patient states that he has night terrors which causes him to be agitated at night I will discuss with with psychiatry and start appropriate treatments 05/25: Remains heavily sedated remains heavily sedated for ventilator synchrony as the patient gets very agitated and hypoxic. They had to go up on FiO2 again currently 80%. I have increased the PEEP to 14. Chest x-ray shows some pulmonary vascular congestion and low lung volumes. Hypoxia most likely from severe atelectasis. I will increase diuresis to achieve negative balance 05/26: fio2 worsening to 100%. spiking fevers again. sputum with new GNRs. discussed with ID- will broaden abx. agitation persists. 05/27: no improvements. fio2 still elevated. sputum still growing klebisella and serratia. still highly agitated and minimal improvements with current sedation plan. in discussing with bedside RN: precedex does not appear to be providing any benefit, but adding 2L/day ivf, which is hurting fluid balance. 05/28: clinically decompensated today. hypoxic requiring bag valve mask support. spo2 70s%. likely combination of agitation, volume overload, persistent pneumonia, fibrotic phase ARDS. still + fluid balance despite all our efforts. restarting bumex drip. long discussion with father regarding prognosis and agitation. will again try to modify sedation plan to minimize unnecessary sedatives and achieve RASS 0 goal. 05/29: fio2 down to 70%. sedation plan much improved and patient far more calm than yesterday. ID added tigacycline today. discussed adding colistin nebs, but will hold off at this time. good diuresis with net -4L/24h. Objective Vital Signs / I&O: Vital Signs 05/28/18 17:00 05/28/18 17:30 05/28/18 18:00 Temperature Pulse Rate 82 82 86 Respiratory Rate 14 14 14 Blood Pressure 114/59 L 123/59 L Pulse Oximetry 100 97 96 05/28/18 18:01 05/28/18 18:30 05/28/18 19:00 Temperature Pulse Rate 84 110 H 100 H Respiratory Rate 14 16 14 Blood Pressure 126/61 114/54 L 99/50 L Pulse Oximetry 96 91 L 98 05/28/18 19:30 05/28/18 20:00 05/28/18 20:04 Temperature 37.4 C Pulse Rate 92 H 88 Respiratory Rate 14 14 14 Blood Pressure 92/54 L 102/50 L Pulse Oximetry 100 99 99 05/28/18 20:30 05/28/18 21:00 05/28/18 21:30 Temperature Pulse Rate 84 80 78 Respiratory Rate 14 14 15 Blood Pressure 105/51 L 111/56 L 113/59 L Pulse Oximetry 100 100 98 05/28/18 22:00 05/28/18 22:01 05/28/18 22:30 Temperature Pulse Rate 82 82 81 Respiratory Rate 14 14 14 Blood Pressure 107/58 L 108/56 L Pulse Oximetry 98 98 98 05/28/18 23:00 05/28/18 23:30 05/29/18 00:00 Temperature 37.3 C Pulse Rate 83 84 86 Respiratory Rate 14 14 14 Blood Pressure 108/55 L 109/59 L 107/59 L Pulse Oximetry 98 97 97 05/29/18 00:30 05/29/18 00:38 05/29/18 01:00 Temperature Pulse Rate 81 83 Respiratory Rate 14 14 14 Blood Pressure 104/57 L 107/58 L Pulse Oximetry 97 97 96 05/29/18 01:30 05/29/18 02:00 05/29/18 02:15 Temperature Pulse Rate 81 86 92 H Respiratory Rate 14 14 16 Blood Pressure 107/56 L 106/63 110/54 L Pulse Oximetry 96 95 05/29/18 02:30 05/29/18 03:00 05/29/18 03:31 Temperature Pulse Rate 86 86 87 Respiratory Rate 14 17 15 Blood Pressure 108/57 L 110/59 L 104/51 L Pulse Oximetry 96 96 96 05/29/18 03:51 05/29/18 04:00 05/29/18 04:30 Temperature 37.1 C Pulse Rate 84 86 Respiratory Rate 14 14 15 Blood Pressure 105/55 L 107/56 L Pulse Oximetry 97 96 96 05/29/18 05:00 05/29/18 05:31 05/29/18 08:00 Temperature 36.9 C Pulse Rate 82 85 85 Respiratory Rate 14 14 14 Blood Pressure 112/56 L 109/53 L 103/51 L Pulse Oximetry 97 97 98 05/29/18 11:59 05/29/18 12:00 Temperature 36.8 C Pulse Rate 86 Respiratory Rate 14 14 Blood Pressure 108/53 L Pulse Oximetry 96 95 Intake & Output 05/28/18 05/29/18 05/29/18 18:59 06:59 18:59 Intake Total 1627 / 1627 2978.0 / 2978.0 972.5 / 972.5 Output Total 1050 / 1050 8250 / 8250 Balance 577 / 577 -5272.0 / -5272.0 972.5 / 972.5 Weight 142.7 kg Intake: IV 1200 / 1200 2045.0 / 2045.0 972.5 / 972.5 Bumex Inj 25 mg In 100 ml @ 1 100 / 100 MG/HR 4 mls/hr IV.CONT .Q24H [facility] Rx#:[id number] Diprivan 1000 mg/100 ml Inj 1, 200 / 200 600 / 600 300 / 300 000 mg In 100 ml @ 5 MCG/KG/MIN 4.77 mls/hr IV.CONT TITRATE PRN Rx#:[id number] Avycaz Inj 2.5 GM In NS Inj 50 100 / 100 50 / 50 ML @ 25 mls/hr IV.SIG Q8H [facility] Rx#:[id number] Levaquin 750 mg Premix Inj 150 150 / 150 ML @ 100 mls/hr IV.SIG Q24H [facility] Rx#:[id number] Vabomere Inj 4,000 MG In NS Inj 500 / 500 500 ML @ 166.667 mls/hr IV.SIG Q8H [facility] Rx#:[id number] Mycamine Inj 150 MG In NS Inj 100 / 100 100 ML @ 100 mls/hr IV.SIG Q24H [facility] Rx#:[id number] KCl 20 mEq Premix Inj 20 meq In 100 / 100 100 ml @ 50 mls/hr IV.SIG Q2H PRN Rx#:[id number] Tygacil Inj 100 MG In NS Inj 100 / 100 100 ML @ 200 mls/hr IV.SIG ONCE ONE Rx#:[id number] Tygacil Inj 50 MG In NS Inj 100 100 / 100 ML @ 200 mls/hr IV.SIG Q12H [facility] Rx#:[id number] Vancomycin Inj 2,250 MG In NS 1045.0 / 1045.0 522.5 / 522.5 Inj 500 ML @ 250 mls/hr IV.SIG Q8H [facility] Rx#:[id number] fentaNYL 10 mcg/mL Premix Drip 250 / 250 2,500 mcg In 250 ml @ 50 MCG/HR 5 mls/hr IV.SIG TITRATE PRN Rx #:[id number] Oral 0 / 0 Tube Feeding 307 / 307 563 / 563 Tube Irrigant 120 / 120 120 / 120 Water Bolus Amount 250 / 250 Output: Stool 100 / 100 Urine Amount (Catheter) 1050 / 1050 8150 / 8150 Indwelling Urethral Catheter 1050 / 1050 8150 / 8150 Other: Date of Last Bowel Movement 05/27/18 05/28/18 05/29/18 # Bowel Movements 2 2 # Incontinent Bowel Movements 1 Result Diagrams: 05/29/18 11:15 05/29/18 06:50 Objective Remarks: GENERAL: Lying in bed following commands, less agitated today. SKIN: diaphoretic HEAD: NCAT NECK: Supple, tracheostomy present, clean and dry CARDIOVASCULAR: normal rate in the 80s, regular rhythm. sinus RESPIRATORY: Equal breath sounds bilaterally. less hypoxic. spo2 94%. PC/AC Phigh 25, PEEP 10, RR 14. fio2 70%. GASTROINTESTINAL: Abdomen obese, soft, non-tender in all quadrants MUSCULOSKELETAL: Trace peripheral edema, improving Neuro: Ventilated via tracheostomy, sedated but wide awake. RASS -1. CAM+. Assessment and Plan - Assessment and Plan Plan: Assessment: 22yM with severe hypoxic respiratory failure and multiorgan dysfunction. clinically worse today and decompensating. some mild improvements in oxygenation overnight. remains critically ill. agitation has improved significantly. still critically ill and on near-maximal ventilatory support. NEURO/PSYCH: Acute metabolic encephalopathy Suspected PCP overdose Suspected ethylene glycol overdose Suicide attempt Critical illness myopathy Bipolar disorder Severe agitated delirium agitation significantly improved. Sedation strategy: seroquel 100mg po q8h (family says this works well to sedate him) morphine 10mg iv q3h clonidine 0.3mg po TID propranolol 60mg po q6h propofol prn for RASS goal -2. decrease haldol to 2.5mg iv q4h scheduled (seroquel working better than haldol and QRS beginning to widen (490ms on last check) one-time dose of methadone 50mg iv x 1 05/28 -Delirium precautions * Lights on/ shades up during the day, limit night time disruptions, frequent reorientation, patient's parents brought his glasses in from home and he should be provided with these whenever awake -Wellbutrin held per psych rec - continue melatonin 10mg po qHS for sleep -CT of the head negative. MRI of brain negative. MRI C spine negative. -EEG 05/18, 04/30, 04/28 with no epileptic activity RESP: Acute hypoxemic respiratory failure- persistently severe. Bilateral atelectasis ARDS resolving Bibasilar aspiration pneumonitis Tobacco abuse Pulmonary edema -Continue with vent support keep sats >92% PC/AC 14, phigh 25, peep 10, fio2 70%. -Chest x-ray shows low lung volumes and pulmonary vascular congestion -s/p tracheostomy, POD #10 -Cannot do SBT secondary to severe hypoxia -Ventilator bundle. Bronchodilators (ipratropium/albuterol, Q4), Solumedrol reduced to 20mg Q12-05/21/2018 -s/p bronch 05/02 thick secretions suctioned to clear. No evidence of EBL or bleeding. -Nicotine patch - continue forced diuresis CV: Essential hypertension -Monitor HR and BP keep MAP>65mmHg -clonidine 0.3mg po TID propranolol 60mg po q6h -Echo 04/28: EF 60-65%, PASP 36mmHg GI: Elevated ALT Hypoalbuminemia - IV famotidine. -Docusate serum/senna 1 tablet twice daily for bowel regimen. Lactulose 30 cc twice daily and MiraLAX 17 g twice daily. Renal/FEN/: -Monitor renal function, I/O's, electrolytes replacement as needed -Tube feeds to goal - continue bumex infusion diamox 500mg iv q8h daily metolazone 5mg add concentrated albumin 25gm iv q6h ID: MSSA/group A beta strep pneumonia Superadded Enterobacter/Klebsiella pneumonia ESBL Abx per ID 05/07 Sputm cx: Kleb pneumonia, Enterobacter. Repeat cultures from 05/13 have no growth at 5 days, another set of cultures sent 05/18 and pending 04/27 Sputum: Staph aureus/MSSA and beta strep not group A. 05/03 BC: Coag neg staph 05/02 bronch cx: Staph Aureus HEME: Normocytic anemia Leukocytosis-- resolved -Anemia of chronic illness, stable ENDO/FEN: Hyperglycemia -Electrolyte replacement per protocol -Sliding scale insulin -decrease solumedrol to 20mg iv daily. MSK: Myopathy of critical illness, severe deconditioning PT/ OT evals appreciated, multipodus boot ordered, patient may benefit from wrist splints/ passive ROM exercises, Up to stretcher chair daily PROPH: GI prophylaxis- On Pepcid DVT prophylaxis- Lovenox 40mg SQ BID Doppler US LE: thrombosis of the posterior tibial vein within the calf bilaterally. Repeat duplex on 05/18 shows persistent LLE below the knee DVT which has not propagated proximally. No RLE DVT seen. Case management consulted to help with discharge planning. Patient will need aggressive PT/ OT and will likely need prolonged wean from ventilator given extent of physical deconditioning. LINES: -PICC placed on 05/08/18 critically ill. Critical care time: 37 minutes, exclusive of separately billable procedures.
[2018-05-29] MEDS: Albumin Human 25% Inj 100 ML IV.SIG SCH (17:26)
[2018-05-29] MEDS ORDERED: Pharmacy Ordered Lab Info OTHER ONE (20:45)
[2018-05-29] MEDS: Micafungin Inj 150 MG in Sodium Chlor 0.9% Inj 100 ML IV.SIG SCH (20:58)
[2018-05-29] MEDS: Melatonin 5 MG Tablet PO SCH (21:21)
[2018-05-30] MEDS: Propofol 1000 mg/100 ml Inj 1,000 MG/100 ML BOTTLE IV.CONT PRN ×9 (00:03→23:55)
[2018-05-30] MEDS: Albumin Human 25% Inj 100 ML IV.SIG SCH ×3 (00:29→16:55)
[2018-05-30] MEDS: Insulin NovoLOG Aspart Correctional Sugar Inj SQ SCH ×4 (00:34→17:16)
[2018-05-30] MEDS: Haloperidol Inj 5 MG/ML Ampul IV.PUSH SCH ×5 (00:34→16:14)
[2018-05-30] MEDS: Oral Hygiene Kit OROPHARYNG SCH ×4 (00:34→16:15)
[2018-05-30] MEDS: Artificial Tears Opth Drops 15 ML Bottle EACH EYE SCH ×3 (00:35→16:15)
[2018-05-30] MEDS: Ceftazidime/Avibactam Inj 2.5 GM in Sodium Chlor 0.9% Inj 50 ML IV.SIG SCH ×3 (02:25→17:00)
[2018-05-30 04:39] LABS: Hematocrit 35.4 % (39.0-51.0); Mean Corpuscular Hemoglobin 29.8 pg (27.0-34.0); Mean Corpuscular Volume 87.8 fL (80.0-100.0); Mean Platelet Volume 9.7 fL (7.0-11.0); Platelet Count 230 th/mm3 (150-450); Red Blood Count 4.03 mil/mm3 (4.50-5.90); Red Cell Distribution Width 15.4 % (11.6-17.2); White Blood Count 18.3 th/mm3 (4.0-11.0)
[2018-05-30 05:16] LABS: Calcium 9.2 mg/dL (8.5-10.1); Carbon Dioxide 28.9 meq/L (21.0-32.0); Phosphorus 6.8 mg/dL (2.5-4.9)
[2018-05-30 05:18] LABS: Potassium 2.3 meq/L (3.5-5.1)
[2018-05-30] MEDS: Potassium Chlor 20 mEq Premix 20 MEQ/100 ML PIGGYBACK IV.SIG PRN ×5 (05:29→20:31)
[2018-05-30] MEDS: Potassium Chloride 25 MEQ Effervescent Tablet PO PRN (05:29)
[2018-05-30] MEDS: QUEtiapine 100 MG Tablet PO SCH ×3 (05:58→22:25)
--- NOTE | 2018-05-30 06:08 | XR ---
EXAM DATE: 05/30/2018 5:27 AM EST AGE/SEX: 22 years / Male INDICATIONS: Shortness of breath, possible pulmonary disease. CLINICAL DATA: This is the patient's subsequent encounter. Patient reports that signs and symptoms h ave been present for 3 weeks and indicates a pain score of Nonresponsive. MEDICAL/SURGICAL HISTORY: Deep venous thrombosis. Tonsillectomy. [place] [facility] [place] 1[place]/28/2018. [facility] [place] 1[place] SINGLE AP, 05/27/2018. [facility] [place] [address] 1V SINGLE AP, 05/25/2018. . FINDINGS: Portable AP view of the chest demonstrates a normal-sized cardiac silhouette. Tracheostomy and nasoga stric tube remain present. Lungs are underinflated and there is stable cystic cavity at the right gillian g apex measuring approximately 7 cm. This was not definitively seen on older examinations dated 05/25 and not seen on prior chest CT from 04/27/2018 There is mild bibasilar airspace opacity. No ple ural effusion or pneumothorax is identified. CONCLUSION: Stable chest x-ray with mild bibasilar airspace opacity representing either atelectasis or consolidat ion. There is also a stable nonspecific 7 cm cystic cavity at the right lung apex. Electronically signed by: Alexis Franks MD 05/30/2018 6:07 AM EST
[2018-05-30] MEDS: Chlorhexidine 0.12% Oral Kit 15 ML UDC OROPHARYNG SCH ×2 (07:43→20:54)
[2018-05-30] MEDS: Erythromycin Ethylsuccinate Susp 400 MG/5ML 100 ML Bottle NG/OG SCH ×3 (08:36→17:00)
[2018-05-30] MEDS: Potassium Bicarbonate 25 MEQ Effervescent Tablet NG/OG SCH ×2 (08:36→20:53)
[2018-05-30] MEDS: Enoxaparin Inj 40 MG/0.4 ML Syringe SQ SCH ×2 (08:37→20:51)
[2018-05-30] MEDS: Heparin Central Flush 100 UNIT/ML 5 ML Vial IV.FLUSH SCH (08:37)
[2018-05-30] MEDS: Pantoprazole Inj 40 MG Vial IV.PUSH SCH (08:38)
[2018-05-30] MEDS: Senna/Docusate Sodium 8.6/50 MG Tablet PO SCH ×2 (08:38→20:53)
[2018-05-30] MEDS: metOLazone 5 MG Tablet PO SCH (08:39)
[2018-05-30] MEDS: MethylPREDNISolone Sod Succinate Inj 40 MG/ML Vial IV.PUSH SCH (08:39)
[2018-05-30] MEDS: Collagenase Oint 30 GM Tube TOPICAL SCH (08:39)
--- NOTE | 2018-05-30 16:01 | P.PNCC ---
Subjective Subjective Remarks/Hospital Course: Patient is approximately 22 years old male obese, was found on the floor by a family member, downtime is unknown. EMS was called, patient was given Narcan with no response, he was intubated on the scene, apparently GCS 3. Found bag of PCP next to the patient. Patient has history of psychiatric disorder ? bipolar disorder and I am told he has attempted suicide in the past. There is also mention about suspicion of ethylene glycol ingestion, but his serum osmolality is 307 his osmolar gap is only 13. Bicarb is 26, ethylene glycol seems unlikely. Ethanol was negative urine drug screen only positive for benzo. I evaluated the patient in the ICU at the [facility]. Patient had a CT of the head which was negative. Rest of the workup unremarkable except for bibasilar atelectasis/aspiration pneumonia. Patient's white count is elevated at 17.1, glucose is 232 lactic acid was 2.8. He received multiple fluid boluses. At this time he is not on any sedation but remains unresponsive no response to deep pain 04/28 Patient remains intubated off sedation unresponsive. Afebrile. 04/29: MRI of the brain revealed no acute intracranial findings. EEG to be performed tomorrow. More arousable and moves all 4 extremities but not following commands. Placed on dexamethasone E drip. 2 feeds will be restarted 04/30: T-max 101.4. Currently afebrile. No bowel movement since admission. Arousable and follows simple commands late last night but currently on sedation for agitation. Increased FiO2 noted. Will attempt to gently diurese and continue antibiotics for pansensitive staph aureus/group a beta strep sputum 05/01 Patient is sedated with Fentanyl, Diprivan and intubated. T:101.1 at 5am. Placed on APRV overnight. 05/02 Patient is sedated with Diprivan and Fentanyl drips. Tmax 101.3, on PC/AC with PEEP:12, FIO2 80%, IP:30 05/03 Patient is heavily sedated with Diprivan, Fentanyl and Versed . On PC/AC with PEEP: 14 and FIO2 100$ sats 92%, CXR yesterday showed diffuse b/l pulm infiltrates, started on Flolan nebs. Had Tmax 102.6 last night. 05/04 Patient was placed on rotoprone bed yesterday sedated with Diprivan, Versed and Fentanyl infusion and on neuromuscular blockade( Nimbex) On PC/AC His FIO2 requirements is better now on FIO2:50% from 100% with PEEP:14. T:102.6 05/05 Patient remains intubated and sedated on Bumex drip 0.5mg/hr, T:99.7 at 3am. On PC/AC with PEEP:1 and FIO2 60%- sats 95%. 05/06 Patient remains sedated and intubated on rotoprone bed with improvements in his oxygenation. Now on PC/AC with PEEP:10, FIO2 40%. Afebrile. On Bumex drip 0.5mg/hr. 05/07 Patient remains on rotoprone bed sedated and on Nimbex drip. He is also on Bumex drip 0.5mg/hr with good urine output . 05/08 Patient remains sedated and intubated. On Flolan, and Bumex drip. Afebrile. 05/09 Patient desat overnight now on PC/AC with PEEP:10 and FIO2 100% sats 96%. Had T: 100.4 at midnight. Sputum cx 05/07 GNR. Remains sedated on Flolan and Bumex drip. 05/10: Resting in bed. Remains on PC/AC rate increased to 16. FiO2 80%. Low- grade fevers noted. Remains on epoprostenol and bumetanide drips. Hypertension noted. Aspirated this a.m. and so discontinued tube feeding. We will start PPN today. 05/11 Patient remains on rotoprone bed, sedated and intubated. Afebrile. On PC/ AC with PEEP;10 and FIO2 55%.On Flolan and Bumex drip 0.5mg/hr 05/12 Remains sedated, intubated and on Rotoprone bed. PC/AC with PEEP: 12 and FIO2 70% sats 96%. T:100.4 last night. On Flolan and Bumex drip. 05/14: Off rotaprone since yesterday, nimbex discontinued, PEEP 14 and FiO2 50% with sats in mid 90s. Still on flolan. 05/15: No acute issues overnight, plan is to wean PEEP slowly over the weekend for tracheostomy on Friday 05/18. 05/16: Flolan weaned yesterday, tolerated well, will continue to wean today. PEEP down to 10. O2 sats low to mid 90s. 05/17: TFs held overnight for high residuals; KUB showed Dobhoff tube in distal stomach with NGT in proximal stomach. Will hold for now, will need to be NPO at midnight for hopeful trach tomorrow. Continue PPN for now. 05/18: Patient had a desat event last night and had to have PEEP increased to 14. Pulse ox probe changed this morning and noted to be 100, now weaned back down to PEEP 10 and FiO2 60%. Will continue to wean FiO2. Flolan off since yesterday. Trach today or tomorrow. 05/19: Trach today. PEEP 8, FiO2 40%. No overnight events. 05/20: Trach performed in OR yesterday afternoon, no immediate complications, sent for MRI C spine this morning by neurology to evaluate for myelopathy which showed no acute abnormalities. Sedation weaned, patient now awake and alert, follows commands, mouths words. 05/21: Currently remains intubated sedated. Requiring heavy sedation for vent synchrony. Currently on propofol fentanyl and Versed infusions. Still wakes up and weakly follows. We will lighten sedation attempt CPAP and possible T- piece 2-4 hours today 05/22: Currently wide awake on the vent despite continuous sedation. Mother requests restarting Wellbutrin which I have ordered. Did not tolerate T-piece yesterday. Attempt again today 05/23: Remains intubated currently heavily sedated as the patient showed violent behavior yesterday. Threatening to hit the staff. Required heavy sedation since then. Remains on propofol fentanyl and Precedex now. Wakes up easily follows commands. Mother confirms history of bipolar disorder (Dr. Kaye was psychiatrist). I have requested psych consult to assist with management of agitation/violent behavior. Hold Wellbutrin which was started yesterday 05/24 appears comfortable now on the vent, however was very agitated overnight requiring increased sedation and caused severe hypoxia currently FiO2 is at 80% . Chest x-ray is pending. I will start scheduled Haldol 2 mg IV every 6 hours per psych recommendation. Patient states that he has night terrors which causes him to be agitated at night I will discuss with with psychiatry and start appropriate treatments 05/25: Remains heavily sedated remains heavily sedated for ventilator synchrony as the patient gets very agitated and hypoxic. They had to go up on FiO2 again currently 80%. I have increased the PEEP to 14. Chest x-ray shows some pulmonary vascular congestion and low lung volumes. Hypoxia most likely from severe atelectasis. I will increase diuresis to achieve negative balance 05/26: fio2 worsening to 100%. spiking fevers again. sputum with new GNRs. discussed with ID- will broaden abx. agitation persists. 05/27: no improvements. fio2 still elevated. sputum still growing klebisella and serratia. still highly agitated and minimal improvements with current sedation plan. in discussing with bedside RN: precedex does not appear to be providing any benefit, but adding 2L/day ivf, which is hurting fluid balance. 05/28: clinically decompensated today. hypoxic requiring bag valve mask support. spo2 70s%. likely combination of agitation, volume overload, persistent pneumonia, fibrotic phase ARDS. still + fluid balance despite all our efforts. restarting bumex drip. long discussion with father regarding prognosis and agitation. will again try to modify sedation plan to minimize unnecessary sedatives and achieve RASS 0 goal. 05/29: fio2 down to 70%. sedation plan much improved and patient far more calm than yesterday. ID added tigacycline today. discussed adding colistin nebs, but will hold off at this time. good diuresis with net -4L/24h. 05/30: far better today than yesterday. fio2 down to 40%. awake and CAM- for the first time in weeks. still spiking intermittent fevers. good diuresis, though Cr starting to uptrend. Objective Vital Signs / I&O: Vital Signs 05/29/18 16:00 05/29/18 16:30 05/29/18 16:53 Temperature 37.0 C Pulse Rate 94 H 98 H Respiratory Rate 14 16 14 Blood Pressure 101/56 L 101/58 L Pulse Oximetry 94 L 96 98 05/29/18 17:00 05/29/18 17:30 05/29/18 18:00 Temperature Pulse Rate 96 H 93 H 92 H Respiratory Rate 14 22 14 Blood Pressure 104/63 107/58 L 106/58 L Pulse Oximetry 99 100 100 05/29/18 18:30 05/29/18 19:00 05/29/18 19:30 Temperature Pulse Rate 91 H 101 H 99 H Respiratory Rate 14 16 19 Blood Pressure 101/58 L 99/57 L 102/66 Pulse Oximetry 100 100 100 05/29/18 20:00 05/29/18 20:30 05/29/18 20:59 Temperature 37.4 C Pulse Rate 93 H 93 H Respiratory Rate 14 14 14 Blood Pressure 102/57 L 99/59 L Pulse Oximetry 100 100 99 05/29/18 21:00 05/29/18 21:30 05/29/18 22:00 Temperature Pulse Rate 96 H 94 H 96 H Respiratory Rate 21 14 20 Blood Pressure 105/57 L 107/59 L 110/59 L Pulse Oximetry 99 95 97 05/29/18 22:30 05/29/18 23:00 05/29/18 23:15 Temperature Pulse Rate 96 H 95 H Respiratory Rate 14 14 14 Blood Pressure 110/55 L 97/53 L Pulse Oximetry 96 99 100 05/29/18 23:30 05/29/18 23:34 05/30/18 00:00 Temperature 37.6 C H Pulse Rate 92 H 93 H 96 H Respiratory Rate 14 16 15 Blood Pressure 101/54 L 92/52 L 101/56 L Pulse Oximetry 100 100 100 05/30/18 00:30 05/30/18 01:00 05/30/18 01:31 Temperature Pulse Rate 101 H 91 H 86 Respiratory Rate 15 18 19 Blood Pressure 103/58 L 110/53 L 91/50 L Pulse Oximetry 100 100 100 05/30/18 02:00 05/30/18 02:01 05/30/18 02:30 Temperature Pulse Rate 79 81 82 Respiratory Rate 23 20 15 Blood Pressure 92/54 L 92/54 L Pulse Oximetry 97 98 100 05/30/18 03:00 05/30/18 03:30 05/30/18 03:36 Temperature Pulse Rate 88 92 H Respiratory Rate 14 14 15 Blood Pressure 97/58 L 100/55 L Pulse Oximetry 100 100 100 05/30/18 04:00 05/30/18 04:30 05/30/18 05:00 Temperature 37.7 C H Pulse Rate 93 H 93 H 89 Respiratory Rate 17 14 16 Blood Pressure 101/59 L 99/57 L 95/57 L Pulse Oximetry 100 96 99 05/30/18 07:00 05/30/18 08:00 05/30/18 09:02 Temperature 38.1 C H Pulse Rate 87 Respiratory Rate 16 15 Blood Pressure 88/53 L Pulse Oximetry 100 100 100 05/30/18 12:00 05/30/18 12:40 Temperature 37.5 C Pulse Rate 91 H Respiratory Rate 19 15 Blood Pressure 95/56 L Pulse Oximetry 95 94 L Intake & Output 05/29/18 05/30/18 05/30/18 18:59 06:59 18:59 Intake Total 1827.5 / 1827.5 2186.5 / 2186.5 550 / 550 Output Total 4300 / 4300 2700 / 2700 Balance -2472.5 / -2472.5 -513.5 / -513.5 550 / 550 Weight 140.3 kg Intake: IV 1272.5 / 1272.5 1205.5 / 1205.5 550 / 550 Bumex Inj 25 mg In 100 ml @ 1 100 / 100 MG/HR 4 mls/hr IV.CONT .Q24H [facility] Rx#:[id number] Diprivan 1000 mg/100 ml Inj 1, 400 / 400 600 / 600 200 / 200 000 mg In 100 ml @ 5 MCG/KG/MIN 4.77 mls/hr IV.CONT TITRATE PRN Rx#:[id number] Flexbumin 25% Inj 100 ML @ 12.5 100 / 100 100 / 100 mls/hr IV.SIG Q8H [facility] Rx#: [id number] Avycaz Inj 2.5 GM In NS Inj 50 50 / 50 100 / 100 50 / 50 ML @ 25 mls/hr IV.SIG Q8H [facility] Rx#:[id number] Mycamine Inj 150 MG In NS Inj 100 / 100 100 ML @ 100 mls/hr IV.SIG Q24H [facility] Rx#:[id number] KCl 20 mEq Premix Inj 20 meq In 300 / 300 100 ml @ 50 mls/hr IV.SIG Q2H PRN Rx#:[id number] Tygacil Inj 50 MG In NS Inj 100 100 / 100 100 / 100 ML @ 200 mls/hr IV.SIG Q12H [facility] Rx#:[id number] Vancomycin Inj 2,250 MG In NS 522.5 / 522.5 205.5 / 205.5 Inj 500 ML @ 250 mls/hr IV.SIG Q8H [facility] Rx#:[id number] Oral 0 / 0 Tube Feeding 555 / 555 611 / 611 Tube Irrigant 120 / 120 Water Bolus Amount 250 / 250 Output: Stool 100 / 100 Urine Amount (Catheter) 4300 / 4300 2600 / 2600 Indwelling Urethral Catheter 4300 / 4300 2600 / 2600 Other: Date of Last Bowel Movement 05/29/18 05/29/18 05/29/18 # Bowel Movements 1 1 # Incontinent Bowel Movements 1 Result Diagrams: 05/30/18 04:26 05/30/18 04:26 Objective Remarks: GENERAL: Lying in bed following commands, calm today. SKIN: warm, well perfused HEAD: NCAT NECK: Supple, tracheostomy present, clean and dry CARDIOVASCULAR: normal rate in the 90s, regular rhythm. sinus RESPIRATORY: Equal breath sounds bilaterally. spo2 97%. PC/AC Phigh 21, PEEP 10 , RR 14. fio2 40%. GASTROINTESTINAL: Abdomen obese, soft, non-tender in all quadrants MUSCULOSKELETAL: Trace peripheral edema, improving Neuro: Ventilated via tracheostomy, sedated but wide awake. RASS 0. CAM-. Assessment and Plan - Assessment and Plan Plan: Assessment: 22yM with severe hypoxic respiratory failure and multiorgan dysfunction. clinically beginning to improve, although remains very critically ill and off pathway. agitation has improved significantly. still critically ill. Cr rise is concerning, but pulmonary status requires that we continue forced diuresis to achieve negative fluid balance. NEURO/PSYCH: Acute metabolic encephalopathy Suspected PCP overdose Suspected ethylene glycol overdose Suicide attempt Critical illness myopathy Bipolar disorder Severe agitated delirium agitation significantly improved. Sedation strategy: seroquel 100mg po q8h (family says this works well to sedate him) morphine 10mg iv q3h clonidine 0.3mg po TID propranolol 60mg po q6h propofol prn for RASS goal -2. decrease haldol to 2mg iv q8h scheduled (seroquel working better than haldol and QRS beginning to widen (490ms on last check) one-time dose of methadone 50mg iv x 1 05/28 -Delirium precautions * Lights on/ shades up during the day, limit night time disruptions, frequent reorientation, patient's parents brought his glasses in from home and he should be provided with these whenever awake -Wellbutrin held per psych rec - continue melatonin 10mg po qHS for sleep -CT of the head negative. MRI of brain negative. MRI C spine negative. -EEG 05/18, 04/30, 04/28 with no epileptic activity RESP: Acute hypoxemic respiratory failure- persistently severe. Bilateral atelectasis ARDS resolving Bibasilar aspiration pneumonitis Tobacco abuse Pulmonary edema -Continue with vent support keep sats >92% PC/AC 14, phigh 21, peep 10, fio2 40%. -Chest x-ray shows low lung volumes and pulmonary vascular congestion -s/p tracheostomy, POD #10 -Cannot do SBT secondary to severe hypoxia -Ventilator bundle. Bronchodilators (ipratropium/albuterol, Q4), Solumedrol reduced to 20mg Q12-05/21/2018: reduce to 20mg daily. -s/p bronch 05/02 thick secretions suctioned to clear. No evidence of EBL or bleeding. -Nicotine patch - continue forced diuresis CV: Essential hypertension -Monitor HR and BP keep MAP>65mmHg -clonidine 0.3mg po TID propranolol 60mg po q6h -Echo 04/28: EF 60-65%, PASP 36mmHg GI: Elevated ALT Hypoalbuminemia - IV famotidine. -Docusate serum/senna 1 tablet twice daily for bowel regimen. Lactulose 30 cc twice daily and MiraLAX 17 g twice daily. Renal/FEN/: -Monitor renal function, I/O's, electrolytes replacement as needed -Tube feeds to goal - continue bumex infusion: decrease dose to 0.5mg/hr. diamox 500mg iv q8h daily metolazone 5mg continue concentrated albumin 25gm iv q6h ID: MSSA/group A beta strep pneumonia Superadded Enterobacter/Klebsiella pneumonia ESBL Abx per ID 05/07 Sputm cx: Kleb pneumonia, Enterobacter. Repeat cultures from 05/13 have no growth at 5 days, another set of cultures sent 05/18 and pending 04/27 Sputum: Staph aureus/MSSA and beta strep not group A. 05/03 BC: Coag neg staph 05/02 bronch cx: Staph Aureus HEME: Normocytic anemia Leukocytosis-- resolved -Anemia of chronic illness, stable ENDO/FEN: Hyperglycemia -Electrolyte replacement per protocol -Sliding scale insulin -decreased solumedrol to 20mg iv daily. MSK: Myopathy of critical illness, severe deconditioning PT/ OT evals appreciated, multipodus boot ordered, patient may benefit from wrist splints/ passive ROM exercises, Up to stretcher chair daily PROPH: GI prophylaxis- On Pepcid DVT prophylaxis- Lovenox 40mg SQ BID Doppler US LE: thrombosis of the posterior tibial vein within the calf bilaterally. Repeat duplex on 05/18 shows persistent LLE below the knee DVT which has not propagated proximally. No RLE DVT seen. Case management consulted to help with discharge planning. Patient will need aggressive PT/ OT and will likely need prolonged wean from ventilator given extent of physical deconditioning. LINES: -PICC placed on 05/08/18 critically ill. Critical care time: 31 minutes, exclusive of separately billable procedures.
[2018-05-30] MEDS: Bumetanide Inj 25 MG/100 ML BAG IV.CONT SCH (17:00)
--- NOTE | 2018-05-30 17:09 | P.PNID ---
Subjective Remarks: Improved on 40% PEEP 10 + fever up to 101 creatinine doubled, seems dry intravascularly BC NGTD @ 2 days repeat sputun clx P Antibiotics: avycaz tygacyl vancomycin micafungin Lines: PICC Past Medical History: reviewed. Allergies/Adverse Reactions: Allergies shellfish derived Allergy (Verified 04/29/18 13:12) Anaphylaxis No Known Allergies Allergy (Uncoded 04/29/18 13:12) Objective Vital Signs 05/29/18 17:30 05/29/18 18:00 05/29/18 18:30 Temperature Pulse Rate 93 H 92 H 91 H Respiratory Rate 22 14 14 Blood Pressure 107/58 L 106/58 L 101/58 L Pulse Oximetry 100 100 100 05/29/18 19:00 05/29/18 19:30 05/29/18 20:00 Temperature 99.3 F Pulse Rate 101 H 99 H 93 H Respiratory Rate 16 19 14 Blood Pressure 99/57 L 102/66 102/57 L Pulse Oximetry 100 100 100 05/29/18 20:30 05/29/18 20:59 05/29/18 21:00 Temperature Pulse Rate 93 H 96 H Respiratory Rate 14 14 21 Blood Pressure 99/59 L 105/57 L Pulse Oximetry 100 99 99 05/29/18 21:30 05/29/18 22:00 05/29/18 22:30 Temperature Pulse Rate 94 H 96 H 96 H Respiratory Rate 14 20 14 Blood Pressure 107/59 L 110/59 L 110/55 L Pulse Oximetry 95 97 96 05/29/18 23:00 05/29/18 23:15 05/29/18 23:30 Temperature Pulse Rate 95 H 92 H Respiratory Rate 14 14 14 Blood Pressure 97/53 L 101/54 L Pulse Oximetry 99 100 100 05/29/18 23:34 05/30/18 00:00 05/30/18 00:30 Temperature 99.7 F H Pulse Rate 93 H 96 H 101 H Respiratory Rate 16 15 15 Blood Pressure 92/52 L 101/56 L 103/58 L Pulse Oximetry 100 100 100 05/30/18 01:00 05/30/18 01:31 05/30/18 02:00 Temperature Pulse Rate 91 H 86 79 Respiratory Rate 18 19 23 Blood Pressure 110/53 L 91/50 L Pulse Oximetry 100 100 97 05/30/18 02:01 05/30/18 02:30 05/30/18 03:00 Temperature Pulse Rate 81 82 88 Respiratory Rate 20 15 14 Blood Pressure 92/54 L 92/54 L 97/58 L Pulse Oximetry 98 100 100 05/30/18 03:30 05/30/18 03:36 05/30/18 04:00 Temperature 99.9 F H Pulse Rate 92 H 93 H Respiratory Rate 14 15 17 Blood Pressure 100/55 L 101/59 L Pulse Oximetry 100 100 100 05/30/18 04:30 05/30/18 05:00 05/30/18 07:00 Temperature Pulse Rate 93 H 89 Respiratory Rate 14 16 Blood Pressure 99/57 L 95/57 L Pulse Oximetry 96 99 100 05/30/18 08:00 05/30/18 09:02 05/30/18 12:00 Temperature 100.6 F H 99.5 F Pulse Rate 87 91 H Respiratory Rate 16 15 19 Blood Pressure 88/53 L 95/56 L Pulse Oximetry 100 100 95 05/30/18 12:40 05/30/18 16:00 Temperature 99.4 F Pulse Rate 112 H Respiratory Rate 15 24 Blood Pressure 108/74 Pulse Oximetry 94 L 94 L Intake & Output 05/29/18 05/30/18 05/30/18 18:59 06:59 18:59 Intake Total 1827.5 / 1827.5 2186.5 / 2186.5 750 / 750 Output Total 4300 / 4300 2700 / 2700 Balance -2472.5 / -2472.5 -513.5 / -513.5 750 / 750 Weight 140.3 kg Intake: IV 1272.5 / 1272.5 1205.5 / 1205.5 750 / 750 Bumex Inj 25 mg In 100 ml @ 0.5 100 / 100 100 / 100 MG/HR 2 mls/hr IV.CONT .Q24H [facility] Rx#:[id number] Diprivan 1000 mg/100 ml Inj 1, 400 / 400 600 / 600 200 / 200 000 mg In 100 ml @ 5 MCG/KG/MIN 4.77 mls/hr IV.CONT TITRATE PRN Rx#:[id number] Flexbumin 25% Inj 100 ML @ 12.5 100 / 100 100 / 100 100 / 100 mls/hr IV.SIG Q8H [facility] Rx#: [id number] Avycaz Inj 2.5 GM In NS Inj 50 50 / 50 100 / 100 50 / 50 ML @ 25 mls/hr IV.SIG Q8H [facility] Rx#:[id number] Mycamine Inj 150 MG In NS Inj 100 / 100 100 ML @ 100 mls/hr IV.SIG Q24H [facility] Rx#:[id number] KCl 20 mEq Premix Inj 20 meq In 300 / 300 100 ml @ 50 mls/hr IV.SIG Q2H PRN Rx#:[id number] Tygacil Inj 50 MG In NS Inj 100 100 / 100 100 / 100 ML @ 200 mls/hr IV.SIG Q12H [facility] Rx#:[id number] Vancomycin Inj 2,250 MG In NS 522.5 / 522.5 205.5 / 205.5 Inj 500 ML @ 250 mls/hr IV.SIG Q8H [facility] Rx#:[id number] Oral 0 / 0 Tube Feeding 555 / 555 611 / 611 Tube Irrigant 120 / 120 Water Bolus Amount 250 / 250 Output: Stool 100 / 100 Urine Amount (Catheter) 4300 / 4300 2600 / 2600 Indwelling Urethral Catheter 4300 / 4300 2600 / 2600 Other: Date of Last Bowel Movement 05/29/18 05/29/18 05/29/18 # Bowel Movements 1 1 # Incontinent Bowel Movements 1 05/30/18 12:31 Sputum - Endotracheal Gram Stain - Pending 05/30/18 12:31 Sputum - Endotracheal Sputum Culture - Pending 05/28/18 02:29 Blood - Peripheral Aerobic Blood Culture - Preliminary No growth in 2 days 05/28/18 02:29 Blood - Peripheral Anaerobic Blood Culture - Preliminary No growth in 2 days 05/28/18 02:41 Blood - Peripheral Aerobic Blood Culture - Preliminary No growth in 2 days 05/28/18 02:41 Blood - Peripheral Anaerobic Blood Culture - Preliminary No growth in 2 days 05/25/18 16:30 Sputum - Endotracheal Gram Stain - Final 05/25/18 16:30 Sputum - Endotracheal Sputum Culture - Final Serratia marcescens Klebsiella pneumoniae ESBL pos Lab - Hematology Results 05/29/18 05/30/18 11:15 04:26 WBC 17.9 H 18.3 H RBC 3.91 L 4.03 L Hgb 11.7 L 12.0 L Hct 35.4 L 35.4 L MCV 90.3 87.8 MCH 29.8 29.8 MCHC 33.0 34.0 RDW 15.2 15.4 Plt Count 216 D 230 MPV 9.8 9.7 Lab - Chemistry Results 05/28/18 05/29/18 05/29/18 17:22 00:08 05:28 Sodium Potassium Chloride Carbon Dioxide Anion Gap BUN Creatinine Estimated GFR POC Glucose 127 H 152 H 164 H Random Glucose Calcium Phosphorus Magnesium 05/29/18 05/29/18 05/29/18 06:50 11:28 17:21 Sodium 136 Potassium 4.9 D Chloride 97 L Carbon Dioxide 30.4 Anion Gap 9 BUN 29 H Creatinine 0.80 Estimated GFR Greater than 89 POC Glucose 131 H 153 H Random Glucose 140 H Calcium 8.9 Phosphorus 4.4 D Magnesium 2.5 05/30/18 05/30/18 05/30/18 00:02 04:26 13:05 Sodium 137 Potassium 2.3 L* D Chloride 92 L Carbon Dioxide 28.9 Anion Gap 16 H BUN 61 H Creatinine 1.20 Estimated GFR 77 L POC Glucose 158 H 183 H Random Glucose 186 H Calcium 9.2 Phosphorus 6.8 H D Magnesium 3.0 H Imaging: ITS Impressions Head CT 04/27/18 11:31 CONCLUSION: 1. Negative CT Head non contrast. . Abdomen/Pelvis CT 04/27/18 11:35 CONCLUSION: 1. Extensive atelectasis in both lower lobes. 2. The Stone catheter needs to be deflated and advanced into the bladder. The catheter is at the level of the prosthetic urethra. 3. No findings to indicate a bowel obstruction are seen. No free air free fluid is identified. Chest CT 04/27/18 11:35 CONCLUSION: 1. Consolidation both posterior lungs with air bronchograms. This could represent bilateral pneumonia or aspiration. Cervical Spine CT 04/27/18 11:36 CONCLUSION: 1. Negative trauma study. Lumbar Spine CT 04/27/18 11:59 CONCLUSION: 1. Negative for acute process 2. There is no evidence for vertebral compression. Head MRI 04/29/18 07:05 CONCLUSION: 1. Negative MRI of the brain. 2. Inflammatory process cannot be entirely excluded. 3. There are no infarcts identified. Abdomen X-Ray 05/17/18 00:00 CONCLUSION: No evidence of bowel obstruction. Dobbhoff tube is seen within the stomach and the proximal port of the nasogastric tube is within the proximal stomach. Venous Doppler Study 05/18/18 00:00 CONCLUSION: 1. Left lower extremity DVT involving the posterior tibial vein from the mid calf to the ankle. 2. No other evidence of DVT at or above the knee in either lower extremity. Cervical Spine MRI 05/20/18 10:29 CONCLUSION: 1. Straightening of the cervical spine. Otherwise, unremarkable exam. Chest X-Ray 05/30/18 05:00 CONCLUSION: Stable chest x-ray with mild bibasilar airspace opacity representing either atelectasis or consolidation. There is also a stable nonspecific 7 cm cystic cavity at the right lung apex. Physical Exam: GENERAL: Obese male, on the vent, fully awake SKIN: Cool and dry. no rash. HEAD: Atraumatic. Normocephalic. EYES: Face mildly edematous. NO icterus, no injection ENT: moist mucosae NECK: Trach in place, + bleeding CARDIOVASCULAR: RRR, no murmurs RESPIRATORY: Coarse BS mikhail, decreased at bases GASTROINTESTINAL: soft abdomen, obese, not tender MUSCULOSKELETAL: Extremities without clubbing, cyanosis, resolution of edema. NEUROLOGICAL: awake non focal follows PSYCHIATRIC: calm : Stone in place ,urine clear LINE: NO evidence of infection Assessment and Plan - Plan Sepsis ongoing possible new. PNA, probably aspiration Acute VDRF on rotaprone bed. MSSA pneumonia. GNR pneumonia: Kleb, Enterobacter - now with different GNR in sputum Morbid obesity with likely obesity- hypoventilation sd Coag neg staph bacteremia, low grade doubt clin significance New fever Much worsening respiratory status CXR worsening goes along with clin deteriorations On going PNA- now with MDRO (ESBL/KPC) critical, but is much more stable today Low grade fever- clx P Recs: cont Avycaz cont tygacyl cont vancomycin P blood clx cont micafungin P blood clx again sputum clx resp panel dw dad @ b/s D/W RN
[2018-05-30 17:23] LABS: Magnesium 3.4 mg/dL (1.5-2.5); Potassium 3.4 meq/L (3.5-5.1)
[2018-05-30] MEDS: Melatonin 5 MG Tablet PO SCH (20:52)
[2018-05-30] MEDS: Micafungin Inj 150 MG in Sodium Chlor 0.9% Inj 100 ML IV.SIG SCH (20:57)
[2018-05-31] MEDS: Insulin NovoLOG Aspart Correctional Sugar Inj SQ SCH ×4 (00:35→18:45)
[2018-05-31] MEDS: Haloperidol Inj 5 MG/ML Ampul IV.PUSH SCH ×4 (00:36→23:35)
[2018-05-31] MEDS: Artificial Tears Opth Drops 15 ML Bottle EACH EYE SCH ×4 (00:37→23:41)
[2018-05-31] MEDS: Albumin Human 25% Inj 100 ML IV.SIG SCH ×3 (00:37→17:52)
[2018-05-31] MEDS: Oral Hygiene Kit OROPHARYNG SCH ×5 (00:37→23:37)
[2018-05-31] MEDS: Propofol 1000 mg/100 ml Inj 1,000 MG/100 ML BOTTLE IV.CONT PRN ×7 (01:34→22:20)
[2018-05-31] MEDS: Ceftazidime/Avibactam Inj 2.5 GM in Sodium Chlor 0.9% Inj 50 ML IV.SIG SCH ×3 (02:14→17:53)
[2018-05-31 04:59] LABS: Hematocrit 38.4 % (39.0-51.0); Hemoglobin 13.1 gm/dL (13.0-17.0); Mean Corpuscular HGB Conc 34.1 % (32.0-36.0); Mean Corpuscular Hemoglobin 29.9 pg (27.0-34.0); Mean Corpuscular Volume 87.7 fL (80.0-100.0); Mean Platelet Volume 10.2 fL (7.0-11.0); Platelet Count 279 th/mm3 (150-450); Red Blood Count 4.37 mil/mm3 (4.50-5.90); Red Cell Distribution Width 15.4 % (11.6-17.2); White Blood Count 19.4 th/mm3 (4.0-11.0)
[2018-05-31] MEDS: QUEtiapine 100 MG Tablet PO SCH ×3 (05:23→21:36)
[2018-05-31 05:43] LABS: Calcium 9.8 mg/dL (8.5-10.1); Carbon Dioxide 31.8 meq/L (21.0-32.0); Magnesium 3.6 mg/dL (1.5-2.5); Phosphorus 7.4 mg/dL (2.5-4.9); Vancomycin,Random 18.6 Comment
[2018-05-31 05:47] LABS: Potassium 2.5 meq/L (3.5-5.1)
[2018-05-31] MEDS ORDERED: Potassium Chloride 25 MEQ Effervescent Tablet PO ONE (06:02)
[2018-05-31] MEDS: Potassium Chlor 20 mEq Premix 20 MEQ/100 ML PIGGYBACK IV.SIG PRN ×5 (06:12→21:11)
[2018-05-31] MEDS: Erythromycin Ethylsuccinate Susp 400 MG/5ML 100 ML Bottle NG/OG SCH ×3 (08:02→17:53)
[2018-05-31] MEDS: Chlorhexidine 0.12% Oral Kit 15 ML UDC OROPHARYNG SCH ×2 (08:03→19:49)
[2018-05-31] MEDS: Heparin Central Flush 100 UNIT/ML 5 ML Vial IV.FLUSH SCH (08:04)
[2018-05-31] MEDS: Enoxaparin Inj 40 MG/0.4 ML Syringe SQ SCH ×2 (08:04→20:48)
[2018-05-31] MEDS: Potassium Bicarbonate 25 MEQ Effervescent Tablet NG/OG SCH ×2 (08:04→20:48)
[2018-05-31] MEDS: Senna/Docusate Sodium 8.6/50 MG Tablet PO SCH ×2 (08:05→20:49)
[2018-05-31] MEDS: MethylPREDNISolone Sod Succinate Inj 40 MG/ML Vial IV.PUSH SCH (08:05)
[2018-05-31] MEDS: Collagenase Oint 30 GM Tube TOPICAL SCH (08:05)
[2018-05-31] MEDS: Pantoprazole Inj 40 MG Vial IV.PUSH SCH (08:05)
[2018-05-31] MEDS ORDERED: Vancomycin Inj 2,000 MG in Sodium Chlor 0.9% Inj 500 ML IV.SIG ONE (10:00)
--- NOTE | 2018-05-31 13:43 | P.PNCC ---
Subjective Subjective Remarks/Hospital Course: Patient is approximately 22 years old male obese, was found on the floor by a family member, downtime is unknown. EMS was called, patient was given Narcan with no response, he was intubated on the scene, apparently GCS 3. Found bag of PCP next to the patient. Patient has history of psychiatric disorder ? bipolar disorder and I am told he has attempted suicide in the past. There is also mention about suspicion of ethylene glycol ingestion, but his serum osmolality is 307 his osmolar gap is only 13. Bicarb is 26, ethylene glycol seems unlikely. Ethanol was negative urine drug screen only positive for benzo. I evaluated the patient in the ICU at the [facility]. Patient had a CT of the head which was negative. Rest of the workup unremarkable except for bibasilar atelectasis/aspiration pneumonia. Patient's white count is elevated at 17.1, glucose is 232 lactic acid was 2.8. He received multiple fluid boluses. At this time he is not on any sedation but remains unresponsive no response to deep pain 04/28 Patient remains intubated off sedation unresponsive. Afebrile. 04/29: MRI of the brain revealed no acute intracranial findings. EEG to be performed tomorrow. More arousable and moves all 4 extremities but not following commands. Placed on dexamethasone E drip. 2 feeds will be restarted 04/30: T-max 101.4. Currently afebrile. No bowel movement since admission. Arousable and follows simple commands late last night but currently on sedation for agitation. Increased FiO2 noted. Will attempt to gently diurese and continue antibiotics for pansensitive staph aureus/group a beta strep sputum 05/01 Patient is sedated with Fentanyl, Diprivan and intubated. T:101.1 at 5am. Placed on APRV overnight. 05/02 Patient is sedated with Diprivan and Fentanyl drips. Tmax 101.3, on PC/AC with PEEP:12, FIO2 80%, IP:30 05/03 Patient is heavily sedated with Diprivan, Fentanyl and Versed . On PC/AC with PEEP: 14 and FIO2 100$ sats 92%, CXR yesterday showed diffuse b/l pulm infiltrates, started on Flolan nebs. Had Tmax 102.6 last night. 05/04 Patient was placed on rotoprone bed yesterday sedated with Diprivan, Versed and Fentanyl infusion and on neuromuscular blockade( Nimbex) On PC/AC His FIO2 requirements is better now on FIO2:50% from 100% with PEEP:14. T:102.6 05/05 Patient remains intubated and sedated on Bumex drip 0.5mg/hr, T:99.7 at 3am. On PC/AC with PEEP:1 and FIO2 60%- sats 95%. 05/06 Patient remains sedated and intubated on rotoprone bed with improvements in his oxygenation. Now on PC/AC with PEEP:10, FIO2 40%. Afebrile. On Bumex drip 0.5mg/hr. 05/07 Patient remains on rotoprone bed sedated and on Nimbex drip. He is also on Bumex drip 0.5mg/hr with good urine output . 05/08 Patient remains sedated and intubated. On Flolan, and Bumex drip. Afebrile. 05/09 Patient desat overnight now on PC/AC with PEEP:10 and FIO2 100% sats 96%. Had T: 100.4 at midnight. Sputum cx 05/07 GNR. Remains sedated on Flolan and Bumex drip. 05/10: Resting in bed. Remains on PC/AC rate increased to 16. FiO2 80%. Low- grade fevers noted. Remains on epoprostenol and bumetanide drips. Hypertension noted. Aspirated this a.m. and so discontinued tube feeding. We will start PPN today. 05/11 Patient remains on rotoprone bed, sedated and intubated. Afebrile. On PC/ AC with PEEP;10 and FIO2 55%.On Flolan and Bumex drip 0.5mg/hr 05/12 Remains sedated, intubated and on Rotoprone bed. PC/AC with PEEP: 12 and FIO2 70% sats 96%. T:100.4 last night. On Flolan and Bumex drip. 05/14: Off rotaprone since yesterday, nimbex discontinued, PEEP 14 and FiO2 50% with sats in mid 90s. Still on flolan. 05/15: No acute issues overnight, plan is to wean PEEP slowly over the weekend for tracheostomy on Friday 05/18. 05/16: Flolan weaned yesterday, tolerated well, will continue to wean today. PEEP down to 10. O2 sats low to mid 90s. 05/17: TFs held overnight for high residuals; KUB showed Dobhoff tube in distal stomach with NGT in proximal stomach. Will hold for now, will need to be NPO at midnight for hopeful trach tomorrow. Continue PPN for now. 05/18: Patient had a desat event last night and had to have PEEP increased to 14. Pulse ox probe changed this morning and noted to be 100, now weaned back down to PEEP 10 and FiO2 60%. Will continue to wean FiO2. Flolan off since yesterday. Trach today or tomorrow. 05/19: Trach today. PEEP 8, FiO2 40%. No overnight events. 05/20: Trach performed in OR yesterday afternoon, no immediate complications, sent for MRI C spine this morning by neurology to evaluate for myelopathy which showed no acute abnormalities. Sedation weaned, patient now awake and alert, follows commands, mouths words. 05/21: Currently remains intubated sedated. Requiring heavy sedation for vent synchrony. Currently on propofol fentanyl and Versed infusions. Still wakes up and weakly follows. We will lighten sedation attempt CPAP and possible T- piece 2-4 hours today 05/22: Currently wide awake on the vent despite continuous sedation. Mother requests restarting Wellbutrin which I have ordered. Did not tolerate T-piece yesterday. Attempt again today 05/23: Remains intubated currently heavily sedated as the patient showed violent behavior yesterday. Threatening to hit the staff. Required heavy sedation since then. Remains on propofol fentanyl and Precedex now. Wakes up easily follows commands. Mother confirms history of bipolar disorder (Dr. Kaye was psychiatrist). I have requested psych consult to assist with management of agitation/violent behavior. Hold Wellbutrin which was started yesterday 05/24 appears comfortable now on the vent, however was very agitated overnight requiring increased sedation and caused severe hypoxia currently FiO2 is at 80% . Chest x-ray is pending. I will start scheduled Haldol 2 mg IV every 6 hours per psych recommendation. Patient states that he has night terrors which causes him to be agitated at night I will discuss with with psychiatry and start appropriate treatments 05/25: Remains heavily sedated remains heavily sedated for ventilator synchrony as the patient gets very agitated and hypoxic. They had to go up on FiO2 again currently 80%. I have increased the PEEP to 14. Chest x-ray shows some pulmonary vascular congestion and low lung volumes. Hypoxia most likely from severe atelectasis. I will increase diuresis to achieve negative balance 05/26: fio2 worsening to 100%. spiking fevers again. sputum with new GNRs. discussed with ID- will broaden abx. agitation persists. 05/27: no improvements. fio2 still elevated. sputum still growing klebisella and serratia. still highly agitated and minimal improvements with current sedation plan. in discussing with bedside RN: precedex does not appear to be providing any benefit, but adding 2L/day ivf, which is hurting fluid balance. 05/28: clinically decompensated today. hypoxic requiring bag valve mask support. spo2 70s%. likely combination of agitation, volume overload, persistent pneumonia, fibrotic phase ARDS. still + fluid balance despite all our efforts. restarting bumex drip. long discussion with father regarding prognosis and agitation. will again try to modify sedation plan to minimize unnecessary sedatives and achieve RASS 0 goal. 05/29: fio2 down to 70%. sedation plan much improved and patient far more calm than yesterday. ID added tigacycline today. discussed adding colistin nebs, but will hold off at this time. good diuresis with net -4L/24h. 05/30: far better today than yesterday. fio2 down to 40%. awake and CAM- for the first time in weeks. still spiking intermittent fevers. good diuresis, though Cr starting to uptrend. 05/31: continues to be febrile. Cr increasing significantly- likely now intravascularly dry, although anasarca remains. will be forced to hold bumex drip today. continue albumin to recruit extravascular volume. have spoken to LTAC- would be excellent candidate. Objective Vital Signs / I&O: Vital Signs 05/30/18 16:00 05/30/18 17:37 05/30/18 19:00 Temperature 37.4 C Pulse Rate 112 H Respiratory Rate 24 18 Blood Pressure 108/74 Pulse Oximetry 94 L 97 100 05/30/18 20:00 05/30/18 20:25 05/30/18 22:40 Temperature 36.9 C Pulse Rate 115 H Respiratory Rate 15 14 16 Blood Pressure 108/59 L Pulse Oximetry 94 L 95 95 05/31/18 00:00 05/31/18 01:25 05/31/18 04:00 Temperature 37.5 C 38.7 C H Pulse Rate 109 H 107 H Respiratory Rate 17 17 19 Blood Pressure 101/66 97/63 L Pulse Oximetry 94 L 94 L 95 05/31/18 04:35 05/31/18 07:00 05/31/18 08:00 Temperature 38.7 C H Pulse Rate 113 H Respiratory Rate 15 18 Blood Pressure 105/57 L Pulse Oximetry 94 L 92 L 93 L 05/31/18 08:33 05/31/18 10:39 05/31/18 12:00 Temperature 39.1 C H Pulse Rate 113 H Respiratory Rate 18 28 H 18 Blood Pressure 110/67 Pulse Oximetry 93 L 92 L 97 Intake & Output 05/30/18 05/31/18 05/31/18 18:59 06:59 18:59 Intake Total 1730 / 1730 1970 / 1970 600 / 600 Output Total 3150 / 3150 2205 / 2205 Balance -1420 / -1420 -235 / -235 600 / 600 Weight 138.5 kg Intake: IV 950 / 950 1100 / 1100 600 / 600 Bumex Inj 25 mg In 100 ml @ 0.5 100 / 100 MG/HR 2 mls/hr IV.CONT .Q24H [facility] Rx#:[id number] Diprivan 1000 mg/100 ml Inj 1, 300 / 300 500 / 500 200 / 200 000 mg In 100 ml @ 5 MCG/KG/MIN 4.77 mls/hr IV.CONT TITRATE PRN Rx#:[id number] Flexbumin 25% Inj 100 ML @ 12.5 100 / 100 100 / 100 100 / 100 mls/hr IV.SIG Q8H [facility] Rx#: [id number] Avycaz Inj 2.5 GM In NS Inj 50 50 / 50 100 / 100 ML @ 25 mls/hr IV.SIG Q8H [facility] Rx#:[id number] Mycamine Inj 150 MG In NS Inj 100 / 100 100 ML @ 100 mls/hr IV.SIG Q24H [facility] Rx#:[id number] KCl 20 mEq Premix Inj 20 meq In 300 / 300 200 / 200 300 / 300 100 ml @ 50 mls/hr IV.SIG Q2H [facility] Rx#:[id number] Tygacil Inj 50 MG In NS Inj 100 100 / 100 100 / 100 ML @ 200 mls/hr IV.SIG Q12H [facility] Rx#:[id number] Oral 0 / 0 Tube Feeding 430 / 430 520 / 520 Tube Irrigant 100 / 100 100 / 100 Water Bolus Amount 250 / 250 250 / 250 Output: Urine 2100 / 2100 Stool 100 / 100 Estimated Blood Loss 5 / 5 Urine Amount (Catheter) 3150 / 3150 Indwelling Urethral Catheter 3150 / 3150 Other: Date of Last Bowel Movement 05/29/18 05/29/18 05/29/18 # Bowel Movements 0 0 Result Diagrams: 05/31/18 04:32 05/31/18 04:32 Objective Remarks: GENERAL: Lying in bed following commands, calm today. SKIN: warm, well perfused HEAD: NCAT NECK: Supple, tracheostomy present, clean and dry CARDIOVASCULAR: normal rate in the 90s, regular rhythm. sinus RESPIRATORY: Equal breath sounds bilaterally. spo2 97%. PC/AC Phigh 21, PEEP 10 , RR 14. fio2 40%. GASTROINTESTINAL: Abdomen obese, soft, non-tender in all quadrants MUSCULOSKELETAL: Trace peripheral edema, improving Neuro: Ventilated via tracheostomy, sedated but wide awake. RASS 0. CAM-. Assessment and Plan - Assessment and Plan Plan: Assessment: 22yM with severe hypoxic respiratory failure and multiorgan dysfunction. clinically beginning to improve, although remains very critically ill and off pathway. agitation has improved significantly. still critically ill. Cr rise is concerning, now likely intravascularly dry in the setting of total body volume overload. hold bumex drip. continue diamox for alkalosis. continue concentrated albumin to recruit extravascular volume. NEURO/PSYCH: Acute metabolic encephalopathy Suspected PCP overdose Suspected ethylene glycol overdose Suicide attempt Critical illness myopathy Bipolar disorder Severe agitated delirium agitation significantly improved. Sedation strategy: seroquel 100mg po q8h (family says this works well to sedate him) morphine 10mg iv q3h clonidine 0.3mg po TID propranolol 60mg po q6h propofol prn for RASS goal -2. d/c haldol today. one-time dose of methadone 50mg iv x 1 05/28 -Delirium precautions * Lights on/ shades up during the day, limit night time disruptions, frequent reorientation, patient's parents brought his glasses in from home and he should be provided with these whenever awake -Wellbutrin held per psych rec - continue melatonin 10mg po qHS for sleep -CT of the head negative. MRI of brain negative. MRI C spine negative. -EEG 05/18, 04/30, 04/28 with no epileptic activity RESP: Acute hypoxemic respiratory failure- persistently severe. Bilateral atelectasis ARDS resolving Bibasilar aspiration pneumonitis Tobacco abuse Pulmonary edema -Continue with vent support keep sats >92% PC/AC 14, phigh 21, peep 10, fio2 40%. -Chest x-ray shows low lung volumes and pulmonary vascular congestion -s/p tracheostomy, POD #11 -Cannot do SBT secondary to severe hypoxia -Ventilator bundle. Bronchodilators (ipratropium/albuterol, Q4), Solumedrol reduced to 20mg Q12-05/21/2018: reduce to 20mg daily. -s/p bronch 05/02 thick secretions suctioned to clear. No evidence of EBL or bleeding. -Nicotine patch - continue forced diuresis CV: Essential hypertension -Monitor HR and BP keep MAP>65mmHg -clonidine 0.3mg po TID propranolol 60mg po q6h -Echo 04/28: EF 60-65%, PASP 36mmHg GI: Elevated ALT Hypoalbuminemia - IV famotidine. -Docusate serum/senna 1 tablet twice daily for bowel regimen. Lactulose 30 cc twice daily and MiraLAX 17 g twice daily. Renal/FEN/: -Monitor renal function, I/O's, electrolytes replacement as needed -Tube feeds to goal - hold bumex drip. diamox 500mg iv q8h d/c metolazone. continue concentrated albumin 25gm iv q6h ID: MSSA/group A beta strep pneumonia Superadded Enterobacter/Klebsiella pneumonia ESBL Abx per ID 05/07 Sputm cx: Kleb pneumonia, Enterobacter. Repeat cultures from 05/13 have no growth at 5 days, another set of cultures sent 05/18 and pending 04/27 Sputum: Staph aureus/MSSA and beta strep not group A. 05/03 BC: Coag neg staph 05/02 bronch cx: Staph Aureus HEME: Normocytic anemia Leukocytosis-- resolved -Anemia of chronic illness, stable ENDO/FEN: Hyperglycemia -Electrolyte replacement per protocol -Sliding scale insulin -decreased solumedrol to 20mg iv daily. MSK: Myopathy of critical illness, severe deconditioning PT/ OT evals appreciated, multipodus boot ordered, patient may benefit from wrist splints/ passive ROM exercises, Up to stretcher chair daily PROPH: GI prophylaxis- On Pepcid DVT prophylaxis- Lovenox 40mg SQ BID Doppler US LE: thrombosis of the posterior tibial vein within the calf bilaterally. Repeat duplex on 05/18 shows persistent LLE below the knee DVT which has not propagated proximally. No RLE DVT seen. Case management consulted to help with discharge planning. Patient will need aggressive PT/ OT and will likely need prolonged wean from ventilator given extent of physical deconditioning. LINES: -PICC placed on 05/08/18 critically ill.
[2018-05-31] MEDS: Micafungin Inj 150 MG in Sodium Chlor 0.9% Inj 100 ML IV.SIG SCH (19:49)
--- NOTE | 2018-05-31 20:06 | P.PNID ---
Subjective Remarks: worse fever to 103 FiO2 went up to 70% blood clx negative Antibiotics: avycaz tygacyl vancomycin micafungin Lines: PICC Past Medical History: reviewed. Allergies/Adverse Reactions: Allergies shellfish derived Allergy (Verified 04/29/18 13:12) Anaphylaxis No Known Allergies Allergy (Uncoded 04/29/18 13:12) Objective Vital Signs 05/30/18 20:00 05/30/18 20:25 05/30/18 22:40 Temperature 98.5 F Pulse Rate 115 H Respiratory Rate 15 14 16 Blood Pressure 108/59 L Pulse Oximetry 94 L 95 95 05/31/18 00:00 05/31/18 01:25 05/31/18 04:00 Temperature 99.5 F 101.7 F H Pulse Rate 109 H 107 H Respiratory Rate 17 17 19 Blood Pressure 101/66 97/63 L Pulse Oximetry 94 L 94 L 95 05/31/18 04:35 05/31/18 07:00 05/31/18 08:00 Temperature 101.7 F H Pulse Rate 113 H Respiratory Rate 15 18 Blood Pressure 105/57 L Pulse Oximetry 94 L 92 L 93 L 05/31/18 08:33 05/31/18 10:39 05/31/18 12:00 Temperature 102.4 F H Pulse Rate 113 H Respiratory Rate 18 28 H 18 Blood Pressure 110/67 Pulse Oximetry 93 L 92 L 97 05/31/18 14:43 05/31/18 16:00 05/31/18 16:29 Temperature 100.6 F H Pulse Rate 105 H Respiratory Rate 18 16 14 Blood Pressure 99/64 L Pulse Oximetry 96 96 96 05/31/18 19:00 Temperature Pulse Rate Respiratory Rate Blood Pressure Pulse Oximetry 97 Intake & Output 05/31/18 05/31/18 06/01/18 06:59 18:59 06:59 Intake Total 1969 / 1969 2567.1 / 2567.1 Output Total 2205 / 2205 1450 / 1450 Balance -235 / -235 1117.1 / 1117.1 Weight 138.5 kg Intake: IV 1100 / 1100 1597.1 / 1597.1 Diprivan 1000 mg/100 ml Inj 1, 500 / 500 300 / 300 000 mg In 100 ml @ 5 MCG/KG/MIN 4.77 mls/hr IV.CONT TITRATE PRN Rx#:[id number] Flexbumin 25% Inj 100 ML @ 12.5 100 / 100 200 / 200 mls/hr IV.SIG Q8H [facility] Rx#: [id number] Avycaz Inj 2.5 GM In NS Inj 50 100 / 100 50 / 50 ML @ 25 mls/hr IV.SIG Q8H [facility] Rx#:[id number] Mycamine Inj 150 MG In NS Inj 100 / 100 100 ML @ 100 mls/hr IV.SIG Q24H [facility] Rx#:[id number] KCl 20 mEq Premix Inj 20 meq In 200 / 200 400 / 400 100 ml @ 50 mls/hr IV.SIG Q2H [facility]N Rx#:[id number] Tygacil Inj 50 MG In NS Inj 100 100 / 100 100 / 100 ML @ 200 mls/hr IV.SIG Q12H [facility] Rx#:[id number] Vancomycin Inj 2,000 MG In NS 520 / 520 Inj 500 ML @ 250 mls/hr IV.SIG ONCE ONE Rx#:[id number] Oral 0 / 0 Tube Feeding 520 / 520 620 / 620 Tube Irrigant 100 / 100 100 / 100 Water Bolus Amount 250 / 250 250 / 250 Output: Urine 2100 / 2100 Stool 100 / 100 Estimated Blood Loss 5 / 5 Urine Amount (Catheter) 1450 / 1450 Indwelling Urethral Catheter 1450 / 1450 Other: Date of Last Bowel Movement 05/29/18 05/29/18 # Bowel Movements 0 0 05/30/18 12:31 Sputum - Endotracheal Gram Stain - Final 05/30/18 12:31 Sputum - Endotracheal Sputum Culture - Preliminary Immature growth - reincubate 05/28/18 02:29 Blood - Peripheral Aerobic Blood Culture - Preliminary No growth in 3 days 05/28/18 02:29 Blood - Peripheral Anaerobic Blood Culture - Preliminary No growth in 3 days 05/28/18 02:41 Blood - Peripheral Aerobic Blood Culture - Preliminary No growth in 3 days 05/28/18 02:41 Blood - Peripheral Anaerobic Blood Culture - Preliminary No growth in 3 days 05/25/18 16:30 Sputum - Endotracheal Gram Stain - Final 05/25/18 16:30 Sputum - Endotracheal Sputum Culture - Final Serratia marcescens Klebsiella pneumoniae ESBL pos Lab - Hematology Results 05/30/18 05/31/18 04:26 04:32 WBC 18.3 H 19.4 H RBC 4.03 L 4.37 L Hgb 12.0 L 13.1 Hct 35.4 L 38.4 L MCV 87.8 87.7 MCH 29.8 29.9 MCHC 34.0 34.1 RDW 15.4 15.4 Plt Count 230 279 MPV 9.7 10.2 Lab - Chemistry Results 05/30/18 05/30/18 05/30/18 00:02 04:26 13:05 Sodium 137 Potassium 2.3 L* D Chloride 92 L Carbon Dioxide 28.9 Anion Gap 16 H BUN 61 H Creatinine 1.20 Estimated GFR 77 L POC Glucose 158 H 183 H Random Glucose 186 H Calcium 9.2 Phosphorus 6.8 H D Magnesium 3.0 H 05/30/18 05/30/18 05/31/18 16:47 17:09 00:19 Sodium Potassium 3.4 L D Chloride Carbon Dioxide Anion Gap BUN Creatinine Estimated GFR POC Glucose 212 H 157 H Random Glucose Calcium Phosphorus Magnesium 3.4 H 05/31/18 05/31/18 05/31/18 04:31 04:32 12:53 Sodium 137 Potassium 2.5 L* D Chloride 93 L Carbon Dioxide 31.8 Anion Gap 12 BUN 92 H Creatinine 1.90 H Estimated GFR 45 L POC Glucose 140 H 250 H Random Glucose 144 H Calcium 9.8 Phosphorus 7.4 H Magnesium 3.6 H 05/31/18 18:13 Sodium Potassium Chloride Carbon Dioxide Anion Gap BUN Creatinine Estimated GFR POC Glucose 208 H Random Glucose Calcium Phosphorus Magnesium Imaging: ITS Impressions Head CT 04/27/18 11:[address]: [address] Head non contrast. . Abdomen/Pelvis CT 04/27/18 11:35 CONCLUSION: 1. Extensive atelectasis in both lower lobes. 2. The Stone catheter needs to be deflated and advanced into the bladder. The catheter is at the level of the prosthetic urethra. 3. No findings to indicate a bowel obstruction are seen. No free air free fluid is identified. Chest CT 04/27/18 11:35 CONCLUSION: 1. Consolidation both posterior lungs with air bronchograms. This could represent bilateral pneumonia or aspiration. Cervical Spine CT 04/27/18 11:36 CONCLUSION: 1. Negative trauma study. Lumbar Spine CT 04/27/18 11:59 CONCLUSION: 1. Negative for acute process 2. There is no evidence for vertebral compression. Head MRI 04/29/18 07:05 CONCLUSION: 1. Negative MRI of the brain. 2. Inflammatory process cannot be entirely excluded. 3. There are no infarcts identified. Abdomen X-Ray 05/17/18 00:00 CONCLUSION: No evidence of bowel obstruction. Dobbhoff tube is seen within the stomach and the proximal port of the nasogastric tube is within the proximal stomach. Venous Doppler Study 05/18/18 00:00 CONCLUSION: 1. Left lower extremity DVT involving the posterior tibial vein from the mid calf to the ankle. 2. No other evidence of DVT at or above the knee in either lower extremity. Cervical Spine MRI 05/20/18 10:29 CONCLUSION: 1. Straightening of the cervical spine. Otherwise, unremarkable exam. Chest X-Ray 05/30/18 05:00 CONCLUSION: Stable chest x-ray with mild bibasilar airspace opacity representing either atelectasis or consolidation. There is also a stable nonspecific 7 cm cystic cavity at the right lung apex. Physical Exam: GENERAL: Obese male, on the vent, fully awake SKIN: Cool and dry. no rash. HEAD: Atraumatic. Normocephalic. EYES: Face mildly edematous. NO icterus, no injection ENT: moist mucosae NECK: Trach in place, + bleeding CARDIOVASCULAR: RRR, no murmurs RESPIRATORY: Coarse BS mikhail, decreased at bases GASTROINTESTINAL: soft abdomen, obese, not tender MUSCULOSKELETAL: Extremities without clubbing, cyanosis, resolution of edema. NEUROLOGICAL: awake non focal follows PSYCHIATRIC: calm : Stone in place ,urine clear LINE: NO evidence of infection Assessment and Plan - Plan Sepsis ongoing possible new. PNA, probably aspiration Acute VDRF on rotaprone bed. MSSA pneumonia. GNR pneumonia: Kleb, Enterobacter - now with different GNR in sputum Morbid obesity with likely obesity- hypoventilation sd Coag neg staph bacteremia, low grade doubt clin significance Much worsening respiratory status CXR worsening goes along with clin deteriorations On going PNA- now with MDRO (ESBL/KPC) critical, but is much more stable today New fever - worse Recs: cont Avycaz cont tygacyl cont vancomycin P blood clx cont micafungin P blood clx again sputum clx, and blood clx resp panel dw dad @ b/s D/W RN
[2018-05-31] MEDS: Melatonin 5 MG Tablet PO SCH (20:48)
[2018-06-01] MEDS: Albumin Human 25% Inj 100 ML IV.SIG SCH ×2 (00:14→09:30)
[2018-06-01] MEDS: Potassium Chlor 20 mEq Premix 20 MEQ/100 ML PIGGYBACK IV.SIG PRN ×3 (00:16→05:07)
[2018-06-01] MEDS: Insulin NovoLOG Aspart Correctional Sugar Inj SQ SCH ×4 (00:24→18:52)
[2018-06-01] MEDS: Ceftazidime/Avibactam Inj 2.5 GM in Sodium Chlor 0.9% Inj 50 ML IV.SIG SCH ×3 (02:01→18:48)
[2018-06-01] MEDS: Propofol 1000 mg/100 ml Inj 1,000 MG/100 ML BOTTLE IV.CONT PRN ×7 (02:02→16:45)
[2018-06-01] MEDS: Oral Hygiene Kit OROPHARYNG SCH ×3 (04:19→16:46)
[2018-06-01 05:07] LABS: Hematocrit 35.9 % (39.0-51.0); Hemoglobin 12.1 gm/dL (13.0-17.0); Mean Corpuscular HGB Conc 33.6 % (32.0-36.0); Mean Corpuscular Hemoglobin 29.8 pg (27.0-34.0); Mean Corpuscular Volume 88.8 fL (80.0-100.0); Mean Platelet Volume 10.1 fL (7.0-11.0); Platelet Count 265 th/mm3 (150-450); Red Blood Count 4.05 mil/mm3 (4.50-5.90); Red Cell Distribution Width 15.7 % (11.6-17.2); White Blood Count 19.2 th/mm3 (4.0-11.0)
[2018-06-01] MEDS: QUEtiapine 100 MG Tablet PO SCH ×2 (05:32→14:54)
[2018-06-01 05:34] LABS: Calcium 9.6 mg/dL (8.5-10.1); Carbon Dioxide 31.5 meq/L (21.0-32.0); Phosphorus 4.2 mg/dL (2.5-4.9); Vancomycin,Random 19.6 Comment
[2018-06-01] MEDS: MethylPREDNISolone Sod Succinate Inj 40 MG/ML Vial IV.PUSH SCH (09:31)
[2018-06-01] MEDS: Heparin Central Flush 100 UNIT/ML 5 ML Vial IV.FLUSH SCH (09:33)
[2018-06-01] MEDS: Artificial Tears Opth Drops 15 ML Bottle EACH EYE SCH ×2 (09:34→16:46)
[2018-06-01] MEDS: Haloperidol Inj 5 MG/ML Ampul IV.PUSH SCH ×2 (09:34→16:43)
[2018-06-01] MEDS: Potassium Bicarbonate 25 MEQ Effervescent Tablet NG/OG SCH (09:34)
[2018-06-01] MEDS: Chlorhexidine 0.12% Oral Kit 15 ML UDC OROPHARYNG SCH (09:34)
[2018-06-01] MEDS: Senna/Docusate Sodium 8.6/50 MG Tablet PO SCH (09:35)
[2018-06-01] MEDS: Pantoprazole Inj 40 MG Vial IV.PUSH SCH (09:35)
[2018-06-01] MEDS: Collagenase Oint 30 GM Tube TOPICAL SCH (09:36)
[2018-06-01] MEDS: Erythromycin Ethylsuccinate Susp 400 MG/5ML 100 ML Bottle NG/OG SCH ×3 (09:54→18:48)
--- NOTE | 2018-06-01 10:31 | P.PNCC ---
Subjective Subjective Remarks/Hospital Course: Patient is approximately 22 years old male obese, was found on the floor by a family member, downtime is unknown. EMS was called, patient was given Narcan with no response, he was intubated on the scene, apparently GCS 3. Found bag of PCP next to the patient. Patient has history of psychiatric disorder ? bipolar disorder and I am told he has attempted suicide in the past. There is also mention about suspicion of ethylene glycol ingestion, but his serum osmolality is 307 his osmolar gap is only 13. Bicarb is 26, ethylene glycol seems unlikely. Ethanol was negative urine drug screen only positive for benzo. I evaluated the patient in the ICU at the [facility]. Patient had a CT of the head which was negative. Rest of the workup unremarkable except for bibasilar atelectasis/aspiration pneumonia. Patient's white count is elevated at 17.1, glucose is 232 lactic acid was 2.8. He received multiple fluid boluses. At this time he is not on any sedation but remains unresponsive no response to deep pain 04/28 Patient remains intubated off sedation unresponsive. Afebrile. 04/29: MRI of the brain revealed no acute intracranial findings. EEG to be performed tomorrow. More arousable and moves all 4 extremities but not following commands. Placed on dexamethasone E drip. 2 feeds will be restarted 04/30: T-max 101.4. Currently afebrile. No bowel movement since admission. Arousable and follows simple commands late last night but currently on sedation for agitation. Increased FiO2 noted. Will attempt to gently diurese and continue antibiotics for pansensitive staph aureus/group a beta strep sputum 05/01 Patient is sedated with Fentanyl, Diprivan and intubated. T:101.1 at 5am. Placed on APRV overnight. 05/02 Patient is sedated with Diprivan and Fentanyl drips. Tmax 101.3, on PC/AC with PEEP:12, FIO2 80%, IP:30 05/03 Patient is heavily sedated with Diprivan, Fentanyl and Versed . On PC/AC with PEEP: 14 and FIO2 100$ sats 92%, CXR yesterday showed diffuse b/l pulm infiltrates, started on Flolan nebs. Had Tmax 102.6 last night. 05/04 Patient was placed on rotoprone bed yesterday sedated with Diprivan, Versed and Fentanyl infusion and on neuromuscular blockade( Nimbex) On PC/AC His FIO2 requirements is better now on FIO2:50% from 100% with PEEP:14. T:102.6 05/05 Patient remains intubated and sedated on Bumex drip 0.5mg/hr, T:99.7 at 3am. On PC/AC with PEEP:1 and FIO2 60%- sats 95%. 05/06 Patient remains sedated and intubated on rotoprone bed with improvements in his oxygenation. Now on PC/AC with PEEP:10, FIO2 40%. Afebrile. On Bumex drip 0.5mg/hr. 05/07 Patient remains on rotoprone bed sedated and on Nimbex drip. He is also on Bumex drip 0.5mg/hr with good urine output . 05/08 Patient remains sedated and intubated. On Flolan, and Bumex drip. Afebrile. 05/09 Patient desat overnight now on PC/AC with PEEP:10 and FIO2 100% sats 96%. Had T: 100.4 at midnight. Sputum cx 05/07 GNR. Remains sedated on Flolan and Bumex drip. 05/10: Resting in bed. Remains on PC/AC rate increased to 16. FiO2 80%. Low- grade fevers noted. Remains on epoprostenol and bumetanide drips. Hypertension noted. Aspirated this a.m. and so discontinued tube feeding. We will start PPN today. 05/11 Patient remains on rotoprone bed, sedated and intubated. Afebrile. On PC/ AC with PEEP;10 and FIO2 55%.On Flolan and Bumex drip 0.5mg/hr 05/12 Remains sedated, intubated and on Rotoprone bed. PC/AC with PEEP: 12 and FIO2 70% sats 96%. T:100.4 last night. On Flolan and Bumex drip. 05/14: Off rotaprone since yesterday, nimbex discontinued, PEEP 14 and FiO2 50% with sats in mid 90s. Still on flolan. 05/15: No acute issues overnight, plan is to wean PEEP slowly over the weekend for tracheostomy on Friday 05/18. 05/16: Flolan weaned yesterday, tolerated well, will continue to wean today. PEEP down to 10. O2 sats low to mid 90s. 05/17: TFs held overnight for high residuals; KUB showed Dobhoff tube in distal stomach with NGT in proximal stomach. Will hold for now, will need to be NPO at midnight for hopeful trach tomorrow. Continue PPN for now. 05/18: Patient had a desat event last night and had to have PEEP increased to 14. Pulse ox probe changed this morning and noted to be 100, now weaned back down to PEEP 10 and FiO2 60%. Will continue to wean FiO2. Flolan off since yesterday. Trach today or tomorrow. 05/19: Trach today. PEEP 8, FiO2 40%. No overnight events. 05/20: Trach performed in OR yesterday afternoon, no immediate complications, sent for MRI C spine this morning by neurology to evaluate for myelopathy which showed no acute abnormalities. Sedation weaned, patient now awake and alert, follows commands, mouths words. 05/21: Currently remains intubated sedated. Requiring heavy sedation for vent synchrony. Currently on propofol fentanyl and Versed infusions. Still wakes up and weakly follows. We will lighten sedation attempt CPAP and possible T- piece 2-4 hours today 05/22: Currently wide awake on the vent despite continuous sedation. Mother requests restarting Wellbutrin which I have ordered. Did not tolerate T-piece yesterday. Attempt again today 05/23: Remains intubated currently heavily sedated as the patient showed violent behavior yesterday. Threatening to hit the staff. Required heavy sedation since then. Remains on propofol fentanyl and Precedex now. Wakes up easily follows commands. Mother confirms history of bipolar disorder (Dr. Kaye was psychiatrist). I have requested psych consult to assist with management of agitation/violent behavior. Hold Wellbutrin which was started yesterday 05/24 appears comfortable now on the vent, however was very agitated overnight requiring increased sedation and caused severe hypoxia currently FiO2 is at 80% . Chest x-ray is pending. I will start scheduled Haldol 2 mg IV every 6 hours per psych recommendation. Patient states that he has night terrors which causes him to be agitated at night I will discuss with with psychiatry and start appropriate treatments 05/25: Remains heavily sedated remains heavily sedated for ventilator synchrony as the patient gets very agitated and hypoxic. They had to go up on FiO2 again currently 80%. I have increased the PEEP to 14. Chest x-ray shows some pulmonary vascular congestion and low lung volumes. Hypoxia most likely from severe atelectasis. I will increase diuresis to achieve negative balance 05/26: fio2 worsening to 100%. spiking fevers again. sputum with new GNRs. discussed with ID- will broaden abx. agitation persists. 05/27: no improvements. fio2 still elevated. sputum still growing klebisella and serratia. still highly agitated and minimal improvements with current sedation plan. in discussing with bedside RN: precedex does not appear to be providing any benefit, but adding 2L/day ivf, which is hurting fluid balance. 05/28: clinically decompensated today. hypoxic requiring bag valve mask support. spo2 70s%. likely combination of agitation, volume overload, persistent pneumonia, fibrotic phase ARDS. still + fluid balance despite all our efforts. restarting bumex drip. long discussion with father regarding prognosis and agitation. will again try to modify sedation plan to minimize unnecessary sedatives and achieve RASS 0 goal. 05/29: fio2 down to 70%. sedation plan much improved and patient far more calm than yesterday. ID added tigacycline today. discussed adding colistin nebs, but will hold off at this time. good diuresis with net -4L/24h. 05/30: far better today than yesterday. fio2 down to 40%. awake and CAM- for the first time in weeks. still spiking intermittent fevers. good diuresis, though Cr starting to uptrend. 05/31: continues to be febrile. Cr increasing significantly- likely now intravascularly dry, although anasarca remains. will be forced to hold bumex drip today. continue albumin to recruit extravascular volume. have spoken to LTAC- would be excellent candidate. 06/01: continues to have intermittent severe hypoxemia. have discussed with family: will proceed with diagnostic fiberoptic bronch as well as ANAIS to rule out PFO as a cause of intra-cardiac shunting and acute hypoxemia. Objective Vital Signs / I&O: Vital Signs 05/31/18 10:39 05/31/18 12:00 05/31/18 14:43 Temperature 39.1 C H Pulse Rate 113 H Respiratory Rate 28 H 18 18 Blood Pressure 110/67 Pulse Oximetry 92 L 97 96 05/31/18 16:00 05/31/18 16:29 05/31/18 19:00 Temperature 38.1 C H Pulse Rate 105 H Respiratory Rate 16 14 Blood Pressure 99/64 L Pulse Oximetry 96 96 97 05/31/18 19:30 05/31/18 20:00 05/31/18 23:25 Temperature 38.7 C H Pulse Rate 108 H Respiratory Rate 16 16 28 H Blood Pressure 109/59 L Pulse Oximetry 96 97 90 L 05/31/18 23:33 06/01/18 00:00 06/01/18 04:00 Temperature 38.7 C H 38.1 C H Pulse Rate 120 H 117 H 114 H Respiratory Rate 28 H 20 14 Blood Pressure 104/53 L 106/56 L Pulse Oximetry 97 97 06/01/18 04:12 06/01/18 08:59 06/01/18 10:09 Temperature Pulse Rate 110 H Respiratory Rate 16 14 14 Blood Pressure Pulse Oximetry 96 92 L Intake & Output 05/31/18 06/01/18 06/01/18 18:59 06:59 18:59 Intake Total 2567.1 / 2567.1 1811 / 1811 300 / 300 Output Total 1450 / 1450 1100 / 1100 Balance 1117.1 / 1117.1 711 / 711 300 / 300 Weight 142.2 kg Intake: IV 1597.1 / 1597.1 1000 / 1000 300 / 300 Diprivan 1000 mg/100 ml Inj 1, 300 / 300 300 / 300 200 / 200 000 mg In 100 ml @ 5 MCG/KG/MIN 4.77 mls/hr IV.CONT TITRATE PRN Rx#:[id number] Flexbumin 25% Inj 100 ML @ 12.5 200 / 200 100 / 100 100 / 100 mls/hr IV.SIG Q8H [facility] Rx#: [id number] Avycaz Inj 2.5 GM In NS Inj 50 50 / 50 100 / 100 ML @ 25 mls/hr IV.SIG Q8H [facility] Rx#:[id number] Mycamine Inj 150 MG In NS Inj 100 / 100 100 ML @ 100 mls/hr IV.SIG Q24H [facility] Rx#:[id number] KCl 20 mEq Premix Inj 20 meq In 400 / 400 300 / 300 100 ml @ 50 mls/hr IV.SIG Q2H [facility] Rx#:[id number] Tygacil Inj 50 MG In NS Inj 100 100 / 100 100 / 100 ML @ 200 mls/hr IV.SIG Q12H [facility] Rx#:[id number] Vancomycin Inj 2,000 MG In NS 520 / 520 Inj 500 ML @ 250 mls/hr IV.SIG ONCE ONE Rx#:[id number] Oral 0 / 0 Tube Feeding 620 / 620 461 / 461 Tube Irrigant 100 / 100 100 / 100 Water Bolus Amount 250 / 250 250 / 250 Output: Urine Amount (Catheter) 1450 / 1450 1100 / 1100 Indwelling Urethral Catheter 1450 / 1450 1100 / 1100 Other: Date of Last Bowel Movement 05/29/18 05/29/18 # Bowel Movements 0 0 Result Diagrams: 06/01/18 04:46 06/01/18 17:00 Objective Remarks: GENERAL: Lying in bed, agitated today, not following commands. SKIN: warm, well perfused HEAD: NCAT NECK: Supple, tracheostomy present, clean and dry CARDIOVASCULAR: tachycardic rate in the 130s, regular rhythm. sinus RESPIRATORY: Equal breath sounds bilaterally. spo2 97%. PC/AC Phigh 21, PEEP 14 , RR 22. fio2 85%. GASTROINTESTINAL: Abdomen obese, soft, non-tender in all quadrants MUSCULOSKELETAL: Trace peripheral edema, improving Neuro: Ventilated via tracheostomy, sedated. RASS -2. CAM+. Assessment and Plan - Assessment and Plan Plan: Assessment: 22yM with severe hypoxic respiratory failure and multiorgan dysfunction. clinically beginning to improve, although remains very critically ill and off pathway. agitation has improved significantly. still critically ill. worsening hypoxia again is quite concerning. ANAIS to rule out intra-cardiac shunting and bronch to eval for mucous plugging disease. critically ill today and back on high fio2 and full mechanical support. more critically ill today than yesterday. NEURO/PSYCH: Acute metabolic encephalopathy Suspected PCP overdose Suspected ethylene glycol overdose Suicide attempt Critical illness myopathy Bipolar disorder Severe agitated delirium Sedation strategy: seroquel 100mg po q8h (family says this works well to sedate him) morphine 10mg iv q3h clonidine 0.3mg po TID propranolol 60mg po q6h propofol prn for RASS goal -2. d/c haldol today. one-time dose of methadone 50mg iv x 1 05/28 -Delirium precautions * Lights on/ shades up during the day, limit night time disruptions, frequent reorientation, patient's parents brought his glasses in from home and he should be provided with these whenever awake -Wellbutrin held per psych rec - continue melatonin 10mg po qHS for sleep -CT of the head negative. MRI of brain negative. MRI C spine negative. -EEG 05/18, 04/30, 04/28 with no epileptic activity RESP: Acute hypoxemic respiratory failure- persistently severe. Bilateral atelectasis ARDS resolving Bibasilar aspiration pneumonitis Tobacco abuse Pulmonary edema -Continue with vent support keep sats >92% PC/AC 14, phigh 21, peep 10, fio2 40%. -Chest x-ray shows low lung volumes and pulmonary vascular congestion -s/p tracheostomy, POD #12 -Cannot do SBT secondary to severe hypoxia -Ventilator bundle. Bronchodilators (ipratropium/albuterol, Q4), Solumedrol reduced to 20mg Q12-05/21/2018: reduce to 20mg daily. -s/p bronch 05/02 thick secretions suctioned to clear. No evidence of EBL or bleeding. -Nicotine patch bronch today with BALs CV: Essential hypertension -Monitor HR and BP keep MAP>65mmHg -clonidine 0.3mg po TID propranolol 60mg po q6h -Echo 04/28: EF 60-65%, PASP 36mmHg ANAIS today to rule out intra-cardiac shunt. GI: Elevated ALT Hypoalbuminemia - IV famotidine. -Docusate serum/senna 1 tablet twice daily for bowel regimen. Lactulose 30 cc twice daily and MiraLAX 17 g twice daily. Renal/FEN/: -Monitor renal function, I/O's, electrolytes replacement as needed -Tube feeds to goal - hold bumex drip. diamox 500mg iv q8h continue concentrated albumin 25gm iv q8h ID: MSSA/group A beta strep pneumonia Superadded Enterobacter/Klebsiella pneumonia ESBL Abx per ID 05/07 Sputm cx: Kleb pneumonia, Enterobacter. Repeat cultures from 05/13 have no growth at 5 days, another set of cultures sent 05/18 and pending 04/27 Sputum: Staph aureus/MSSA and beta strep not group A. 05/03 BC: Coag neg staph 05/02 bronch cx: Staph Aureus HEME: Normocytic anemia Leukocytosis-- resolved -Anemia of chronic illness, stable ENDO/FEN: Hyperglycemia -Electrolyte replacement per protocol -Sliding scale insulin -decreased solumedrol to 20mg iv daily. MSK: Myopathy of critical illness, severe deconditioning PT/ OT evals appreciated, multipodus boot ordered, patient may benefit from wrist splints/ passive ROM exercises, Up to stretcher chair daily PROPH: GI prophylaxis- On Pepcid DVT prophylaxis- Lovenox 40mg SQ BID Doppler US LE: thrombosis of the posterior tibial vein within the calf bilaterally. Repeat duplex on 05/18 shows persistent LLE below the knee DVT which has not propagated proximally. No RLE DVT seen. Case management consulted to help with discharge planning. Patient will need aggressive PT/ OT and will likely need prolonged wean from ventilator given extent of physical deconditioning. LINES: -PICC placed on 05/08/18 critically ill. critical care time: 44 minutes, exclusive of separately billable procedures.
[2018-06-01] MEDS: Enoxaparin Inj 40 MG/0.4 ML Syringe SQ SCH (11:58)
--- NOTE | 2018-06-01 18:00 | P.PCN ---
Date of procedure: 06/01/18 Procedure: Procedure: Diagnostic fiberoptic Bronchoscopy Diagnosis: Healthcare associated pneumonia Indications: Need for quantitative BAL Consent: Obtained from the mother and decision maker Anesthesia: Propofol IV, rocuronium IV Description of the Procedure: The patient was sedated and mechanically ventilated. The patient was placed on 100% FIO2 and a volume control mode of ventilation. The fiberoptic bronchoscopy was inserted via 8.0 Shiley cuffed trach. The trachea, right and left mainstem bronchi, and sub-segmental bronchi were evaluated. The endobronchial anatomy was normal. Findings: Minimal bloody appearing secretions in the left lower lobe. Otherwise very clear with minimal secretions BAL samples: Left lower lobe, right lower lobe The patient tolerated the procedure well with no hemodynamic instability or hypoxia. There were no immediate complications noted. At the conclusion of the procedure, the patient was placed back on their pre-procedure ventilatory settings. There was minimal EBL. I personally performed the procedure.
[2018-06-01] MEDS ORDERED: Phenylephrine Inj 40 MG in Dextrose 5% in Water Inj 496 ML IV.CONT PRN ×2 (18:07)
--- NOTE | 2018-06-01 19:01 | P.PNID ---
Subjective Remarks: worse today fever to 103 FiO2 went up to 85-100% blood clx negative Sputum with GNB sp BAL Antibiotics: avycaz tygacyl vancomycin micafungin Lines: PICC Past Medical History: reviewed. Allergies/Adverse Reactions: Allergies shellfish derived Allergy (Verified 04/29/18 13:12) Anaphylaxis No Known Allergies Allergy (Uncoded 04/29/18 13:12) Objective Vital Signs 05/31/18 19:00 05/31/18 19:30 05/31/18 20:00 Temperature 101.7 F H Pulse Rate 108 H Respiratory Rate 16 16 Blood Pressure 109/59 L Pulse Oximetry 97 96 97 05/31/18 23:25 05/31/18 23:33 06/01/18 00:00 Temperature 101.6 F H Pulse Rate 120 H 117 H Respiratory Rate 28 H 28 H 20 Blood Pressure 104/53 L Pulse Oximetry 90 L 97 06/01/18 04:00 06/01/18 04:12 06/01/18 08:59 Temperature 100.6 F H Pulse Rate 114 H Respiratory Rate 14 16 14 Blood Pressure 106/56 L Pulse Oximetry 97 96 92 L 06/01/18 10:09 06/01/18 12:20 06/01/18 17:55 Temperature Pulse Rate 110 H 131 H Respiratory Rate 14 14 19 Blood Pressure Pulse Oximetry 99 99 Intake & Output 05/31/18 06/01/18 06/01/18 18:59 06:59 18:59 Intake Total 2567.1 / 2567.1 1811 / 1811 650 / 650 Output Total 1450 / 1450 1100 / 1100 Balance 1117.1 / 1117.1 711 / 711 650 / 650 Weight 142.2 kg Intake: IV 1597.1 / 1597.1 1000 / 1000 650 / 650 Diprivan 1000 mg/100 ml Inj 1, 300 / 300 300 / 300 500 / 500 000 mg In 100 ml @ 5 MCG/KG/MIN 4.77 mls/hr IV.CONT TITRATE PRN Rx#:[id number] Flexbumin 25% Inj 100 ML @ 12.5 200 / 200 100 / 100 100 / 100 mls/hr IV.SIG Q8H [facility] Rx#: [id number] Avycaz Inj 2.5 GM In NS Inj 50 50 / 50 100 / 100 50 / 50 ML @ 25 mls/hr IV.SIG Q8H [facility] Rx#:[id number] Mycamine Inj 150 MG In NS Inj 100 / 100 100 ML @ 100 mls/hr IV.SIG Q24H [facility] Rx#:[id number] KCl 20 mEq Premix Inj 20 meq In 400 / 400 300 / 300 100 ml @ 50 mls/hr IV.SIG Q2H PRN Rx#:[id number] Tygacil Inj 50 MG In NS Inj 100 100 / 100 100 / 100 ML @ 200 mls/hr IV.SIG Q12H [facility] Rx#:[id number] Vancomycin Inj 2,000 MG In NS 520 / 520 Inj 500 ML @ 250 mls/hr IV.SIG ONCE ONE Rx#:[id number] Oral 0 / 0 Tube Feeding 620 / 620 461 / 461 Tube Irrigant 100 / 100 100 / 100 Water Bolus Amount 250 / 250 250 / 250 Output: Urine Amount (Catheter) 1450 / 1450 1100 / 1100 Indwelling Urethral Catheter 1450 / 1450 1100 / 1100 Other: Date of Last Bowel Movement 05/29/18 05/29/18 # Bowel Movements 0 0 06/01/18 13:06 Bronchial - Right Lower Lobe Gram Stain - Pending 06/01/18 13:06 Bronchial - Right Lower Lobe Bronchial Culture - Pending 06/01/18 13:00 Bronchial - Left Lower Lobe Gram Stain - Pending 06/01/18 13:00 Bronchial - Left Lower Lobe Bronchial Culture - Pending 05/30/18 12:31 Sputum - Endotracheal Gram Stain - Final 05/30/18 12:31 Sputum - Endotracheal Sputum Culture - Preliminary gram negative rods 05/31/18 20:20 Blood - Other Aerobic Blood Culture - Preliminary No growth in 1 day 05/31/18 20:20 Blood - Other Anaerobic Blood Culture - Preliminary No growth in 1 day 05/31/18 20:29 Blood - Other Aerobic Blood Culture - Preliminary No growth in 1 day 05/31/18 20:29 Blood - Other Anaerobic Blood Culture - Preliminary No growth in 1 day 05/28/18 02:29 Blood - Peripheral Aerobic Blood Culture - Preliminary No growth in 4 days 05/28/18 02:29 Blood - Peripheral Anaerobic Blood Culture - Preliminary No growth in 4 days 05/28/18 02:41 Blood - Peripheral Aerobic Blood Culture - Preliminary No growth in 4 days 05/28/18 02:41 Blood - Peripheral Anaerobic Blood Culture - Preliminary No growth in 4 days 05/25/18 16:30 Sputum - Endotracheal Gram Stain - Final 05/25/18 16:30 Sputum - Endotracheal Sputum Culture - Final Serratia marcescens Klebsiella pneumoniae ESBL pos Lab - Hematology Results 05/31/18 06/01/18 04:32 04:46 WBC 19.4 H 19.2 H RBC 4.37 L 4.05 L Hgb 13.1 12.1 L Hct 38.4 L 35.9 L MCV 87.7 88.8 MCH 29.9 29.8 MCHC 34.1 33.6 RDW 15.4 15.7 Plt Count 279 265 MPV 10.2 10.1 Lab - Chemistry Results 05/31/18 05/31/18 05/31/18 00:19 04:31 04:32 Sodium 137 Potassium 2.5 L* D Chloride 93 L Carbon Dioxide 31.8 Anion Gap 12 BUN 92 H Creatinine 1.90 H Estimated GFR 45 L POC Glucose 157 H 140 H Random Glucose 144 H Calcium 9.8 Phosphorus 7.4 H Magnesium 3.6 H 05/31/18 05/31/18 05/31/18 12:53 18:13 20:07 Sodium Potassium 2.7 L* Chloride Carbon Dioxide Anion Gap BUN Creatinine Estimated GFR POC Glucose 250 H 208 H Random Glucose Calcium Phosphorus Magnesium 06/01/18 06/01/18 06/01/18 00:20 04:46 05:12 Sodium 142 Potassium 3.0 L Chloride 102 D Carbon Dioxide 31.5 Anion Gap 9 BUN 96 H Creatinine 1.43 H Estimated GFR 63 L POC Glucose 178 H 189 H Random Glucose 210 H Calcium 9.6 Phosphorus 4.2 D Magnesium 4.0 H 06/01/18 06/01/18 15:13 17:00 Sodium Potassium 3.3 L Chloride Carbon Dioxide Anion Gap BUN Creatinine Estimated GFR POC Glucose 267 H Random Glucose Calcium Phosphorus Magnesium Imaging: ITS Impressions Head CT 04/27/18 11:[address]: [address] Head non contrast. . Abdomen/Pelvis CT 04/27/18 11:35 CONCLUSION: 1. Extensive atelectasis in both lower lobes. 2. The Stone catheter needs to be deflated and advanced into the bladder. The catheter is at the level of the prosthetic urethra. 3. No findings to indicate a bowel obstruction are seen. No free air free fluid is identified. Chest CT 04/27/18 11:35 CONCLUSION: 1. Consolidation both posterior lungs with air bronchograms. This could represent bilateral pneumonia or aspiration. Cervical Spine CT 04/27/18 11:36 CONCLUSION: 1. Negative trauma study. Lumbar Spine CT 04/27/18 11:59 CONCLUSION: 1. Negative for acute process 2. There is no evidence for vertebral compression. Head MRI 04/29/18 07:05 CONCLUSION: 1. Negative MRI of the brain. 2. Inflammatory process cannot be entirely excluded. 3. There are no infarcts identified. Abdomen X-Ray 05/17/18 00:00 CONCLUSION: No evidence of bowel obstruction. Dobbhoff tube is seen within the stomach and the proximal port of the nasogastric tube is within the proximal stomach. Venous Doppler Study 05/18/18 00:00 CONCLUSION: 1. Left lower extremity DVT involving the posterior tibial vein from the mid calf to the ankle. 2. No other evidence of DVT at or above the knee in either lower extremity. Cervical Spine MRI 05/20/18 10:29 CONCLUSION: 1. Straightening of the cervical spine. Otherwise, unremarkable exam. Chest X-Ray 05/30/18 05:00 CONCLUSION: Stable chest x-ray with mild bibasilar airspace opacity representing either atelectasis or consolidation. There is also a stable nonspecific 7 cm cystic cavity at the right lung apex. Physical Exam: GENERAL: Obese male, on the vent, fully awake SKIN: Cool and dry. no rash. HEAD: Atraumatic. Normocephalic. EYES: Face mildly edematous. NO icterus, no injection ENT: moist mucosae NECK: Trach in place, + bleeding CARDIOVASCULAR: RRR, no murmurs RESPIRATORY: Coarse BS mikhail, decreased at bases GASTROINTESTINAL: soft abdomen, obese, not tender MUSCULOSKELETAL: Extremities without clubbing, cyanosis, resolution of edema. NEUROLOGICAL: awake non focal follows PSYCHIATRIC: calm : Stone in place ,urine clear LINE: NO evidence of infection Assessment and Plan - Plan Sepsis ongoing possible new. PNA, probably aspiration Acute VDRF on rotaprone bed. MSSA pneumonia. GNR pneumonia: Kleb, Enterobacter - now with different GNR in sputum Morbid obesity with likely obesity- hypoventilation sd Coag neg staph bacteremia, low grade doubt clin significance Much worsening respiratory status CXR worsening goes along with clin deteriorations On going PNA- now with MDRO (ESBL/KPC) critical, but is much more stable today New fever - worse Increasing O2 requirements Recs: cont Avycaz cont tygacyl cont vancomycin P blood clx cont micafungin P blood clx Colistine nebs added, might switch to IV colistine in next 24-48 hrs fu sputum clx, and blood clx resp panel dw dad @ b/s D/W Dr Dee
--- NOTE | 2018-06-02 06:14 | ECHRPT ---
Indication: shortness of breath CONCLUSIONS 1) Normal biventricular size and function, EF > 65%. 2) Hyperdynamic LV function 3) No significant valvular lesions 4) no pericardial effusion 5) There is a PFO present with evidence of bidirectional flow by color flow Doppler, and evidence of continuous wyx-gp-[id number] shunting by bubble study. BP: / HR: 138 Rhythm: sinus tachycardia Technical Quality: Medications Complications Proc. Components FINDINGS LEFT VENTRICLE Normal size and hyperdynamic function. EF > 65%. RIGHT VENTRICLE Normal size with preserved systolic function. LEFT ATRIUM normal size RIGHT ATRIUM normal size ATRIAL APPENDAGES Left atrial appendage has no evidence of thrombus with adequate flow and Doppler signal. ATRIAL SEPTUM There is a PFO present with evidence of continuous babk-pq-gcitg shunting on bubble study, but evide nce of bidirectional flow by color flow Doppler. MITRAL VALVE No evidence of stenosis or regurgitation. No vegetations. AORTIC VALVE No evidence of stenosis or regurgitation. No vegetations. TRICUSPID VALVE No regurgitation. Inadequate TR jet to accurately assess RVSP. VESSELS No stenosis or regurgitation. PERICADIUM No pericardial effusion Cm Dee MD (Electronically Signed) Final Date:02 June 2018 06:12
--- NOTE | 2018-06-02 06:18 | P.DN ---
- Provider Primary care physician: Henrry Reyes MD Consults: 04/28/18 09:45 Consult to Neurology Routine Consulting Provider: Bharath Edmondson Reason for Consultation: Encephalopathy Notified:: Office Spoke with:: LAXMI Date Notified:: 04/28/18 Time Notified:: 09:59 Ordering Provider: FELICIA 05/02/18 17:40 Consult to Infectious Diseases Routine Consulting Provider: Sabine Wiley Reason for Consultation: pneumonia , fevers Notified:: Service Spoke with:: HUONG Date Notified:: 05/02/18 Time Notified:: 17:44 Ordering Provider: FELICIA 05/14/18 12:33 Consult to General Surgery Routine Consulting Provider: Bam Luna Reason for Consultation: tracheostomy, ARDS Notified:: Service Spoke with:: ADEN Date Notified:: 05/14/18 Time Notified:: 12:52 Comments:: Please contact resource conservation specialist gen surg Ordering Provider: CHRISTINA 05/15/18 11:25 HUB Only Consult Order Routine Consulting Provider: [facility],[place] 05/23/18 10:36 Consult to Psychiatry Routine Consulting Provider: Beto Turcios Reason for Consultation: History of BiPolar disorder. Need assistance with managing agitation, violent behaviour Notified:: Office Date Notified:: 05/23/18 Time Notified:: 10:44 Ordering Provider: BIBI Pronouncing clinician: Mirta Steinberg - Admitting Diagnosis (1) Adjustment disorder (2) Aspiration pneumonia of both lower lobes (3) Respiratory failure (4) Toxic encephalopathy - Diagnosis at Time of (1) ARDS (adult respiratory distress syndrome) Diagnosis: Principal (2) Klebsiella infection Diagnosis: Principal (3) MDRO (multiple drug resistant organisms) resistance Diagnosis: Principal (4) PFO (patent foramen ovale) Diagnosis: Principal (5) Pulmonary edema Diagnosis: Principal (6) Delirium due to another medical condition, acute, hyperactive Diagnosis: Principal (7) Septic shock Diagnosis: Principal (8) Acute kidney injury Diagnosis: Principal (9) Acute respiratory failure with hypoxia and hypercapnia Diagnosis: Principal (10) Morbid obesity Diagnosis: Principal (11) Protein-calorie malnutrition, severe Diagnosis: Principal - Date and Time Date of admission: 04/27/18 16:03 Date of : 06/01/18 Time of : 20:30 - Summary Brief History: Patient is approximately 22 years old male obese, was found on the floor by a family member, downtime is unknown. EMS was called, patient was given Narcan with no response, he was intubated on the scene, apparently GCS 3. Found bag of PCP next to the patient. Patient has history of psychiatric disorder ? bipolar disorder and I am told he has attempted suicide in the past. There is also mention about suspicion of ethylene glycol ingestion, but his serum osmolality is 307 his osmolar gap is only 13. Bicarb is 26, ethylene glycol seems unlikely. Ethanol was negative urine drug screen only positive for benzo. I evaluated the patient in the ICU at the formerly [facility]. Patient had a CT of the head which was negative. Rest of the workup unremarkable except for bibasilar atelectasis/aspiration pneumonia. Patient's white count is elevated at 17.1, glucose is 232 lactic acid was 2.8. He received multiple fluid boluses. At this time he is not on any sedation but remains unresponsive no response to deep pain Result Diagrams: 06/01/18 04:46 06/01/18 17:00 Significant Findings: Abnormal Lab Results 06/01/18 06/01/18 06/01/18 15:13 17:00 18:44 Potassium 3.3 L POC Glucose 267 H 304 H Hospital Course: Patient is approximately 22 years old male obese, was found on the floor by a family member, downtime is unknown. EMS was called, patient was given Narcan with no response, he was intubated on the scene, apparently GCS 3. Found bag of PCP next to the patient. Patient has history of psychiatric disorder ? bipolar disorder and I am told he has attempted suicide in the past. There is also mention about suspicion of ethylene glycol ingestion, but his serum osmolality is 307 his osmolar gap is only 13. Bicarb is 26, ethylene glycol seems unlikely. Ethanol was negative urine drug screen only positive for benzo. I evaluated the patient in the ICU at the [facility]. Patient had a CT of the head which was negative. Rest of the workup unremarkable except for bibasilar atelectasis/aspiration pneumonia. Patient's white count is elevated at 17.1, glucose is 232 lactic acid was 2.8. He received multiple fluid boluses. At this time he is not on any sedation but remains unresponsive no response to deep pain 04/28 Patient remains intubated off sedation unresponsive. Afebrile. 04/29: MRI of the brain revealed no acute intracranial findings. EEG to be performed tomorrow. More arousable and moves all 4 extremities but not following commands. Placed on dexamethasone E drip. 2 feeds will be restarted 04/30: T-max 101.4. Currently afebrile. No bowel movement since admission. Arousable and follows simple commands late last night but currently on sedation for agitation. Increased FiO2 noted. Will attempt to gently diurese and continue antibiotics for pansensitive staph aureus/group a beta strep sputum 05/01 Patient is sedated with Fentanyl, Diprivan and intubated. T:101.1 at 5am. Placed on APRV overnight. 05/02 Patient is sedated with Diprivan and Fentanyl drips. Tmax 101.3, on PC/AC with PEEP:12, FIO2 80%, IP:30 05/03 Patient is heavily sedated with Diprivan, Fentanyl and Versed . On PC/AC with PEEP: 14 and FIO2 100$ sats 92%, CXR yesterday showed diffuse b/l pulm infiltrates, started on Flolan nebs. Had Tmax 102.6 last night. 05/04 Patient was placed on rotoprone bed yesterday sedated with Diprivan, Versed and Fentanyl infusion and on neuromuscular blockade( Nimbex) On PC/AC His FIO2 requirements is better now on FIO2:50% from 100% with PEEP:14. T:102.6 05/05 Patient remains intubated and sedated on Bumex drip 0.5mg/hr, T:99.7 at 3am. On PC/AC with PEEP:1 and FIO2 60%- sats 95%. 05/06 Patient remains sedated and intubated on rotoprone bed with improvements in his oxygenation. Now on PC/AC with PEEP:10, FIO2 40%. Afebrile. On Bumex drip 0.5mg/hr. 05/07 Patient remains on rotoprone bed sedated and on Nimbex drip. He is also on Bumex drip 0.5mg/hr with good urine output . 05/08 Patient remains sedated and intubated. On Flolan, and Bumex drip. Afebrile. 05/09 Patient desat overnight now on PC/AC with PEEP:10 and FIO2 100% sats 96%. Had T: 100.4 at midnight. Sputum cx 05/07 GNR. Remains sedated on Flolan and Bumex drip. 05/10: Resting in bed. Remains on PC/AC rate increased to 16. FiO2 80%. Low- grade fevers noted. Remains on epoprostenol and bumetanide drips. Hypertension noted. Aspirated this a.m. and so discontinued tube feeding. We will start PPN today. 05/11 Patient remains on rotoprone bed, sedated and intubated. Afebrile. On PC/ AC with PEEP;10 and FIO2 55%.On Flolan and Bumex drip 0.5mg/hr 05/12 Remains sedated, intubated and on Rotoprone bed. PC/AC with PEEP: 12 and FIO2 70% sats 96%. T:100.4 last night. On Flolan and Bumex drip. 05/14: Off rotaprone since yesterday, nimbex discontinued, PEEP 14 and FiO2 50% with sats in mid 90s. Still on flolan. 05/15: No acute issues overnight, plan is to wean PEEP slowly over the weekend for tracheostomy on Friday 05/18. 05/16: Flolan weaned yesterday, tolerated well, will continue to wean today. PEEP down to 10. O2 sats low to mid 90s. 05/17: TFs held overnight for high residuals; KUB showed Dobhoff tube in distal stomach with NGT in proximal stomach. Will hold for now, will need to be NPO at midnight for hopeful trach tomorrow. Continue PPN for now. 05/18: Patient had a desat event last night and had to have PEEP increased to 14. Pulse ox probe changed this morning and noted to be 100, now weaned back down to PEEP 10 and FiO2 60%. Will continue to wean FiO2. Flolan off since yesterday. Trach today or tomorrow. 05/19: Trach today. PEEP 8, FiO2 40%. No overnight events. 05/20: Trach performed in OR yesterday afternoon, no immediate complications, sent for MRI C spine this morning by neurology to evaluate for myelopathy which showed no acute abnormalities. Sedation weaned, patient now awake and alert, follows commands, mouths words. 05/21: Currently remains intubated sedated. Requiring heavy sedation for vent synchrony. Currently on propofol fentanyl and Versed infusions. Still wakes up and weakly follows. We will lighten sedation attempt CPAP and possible T- piece 2-4 hours today 05/22: Currently wide awake on the vent despite continuous sedation. Mother requests restarting Wellbutrin which I have ordered. Did not tolerate T-piece yesterday. Attempt again today 05/23: Remains intubated currently heavily sedated as the patient showed violent behavior yesterday. Threatening to hit the staff. Required heavy sedation since then. Remains on propofol fentanyl and Precedex now. Wakes up easily follows commands. Mother confirms history of bipolar disorder (Dr. Kaye was psychiatrist). I have requested psych consult to assist with management of agitation/violent behavior. Hold Wellbutrin which was started yesterday 05/24 appears comfortable now on the vent, however was very agitated overnight requiring increased sedation and caused severe hypoxia currently FiO2 is at 80% . Chest x-ray is pending. I will start scheduled Haldol 2 mg IV every 6 hours per psych recommendation. Patient states that he has night terrors which causes him to be agitated at night I will discuss with with psychiatry and start appropriate treatments 05/25: Remains heavily sedated remains heavily sedated for ventilator synchrony as the patient gets very agitated and hypoxic. They had to go up on FiO2 again currently 80%. I have increased the PEEP to 14. Chest x-ray shows some pulmonary vascular congestion and low lung volumes. Hypoxia most likely from severe atelectasis. I will increase diuresis to achieve negative balance 05/26: fio2 worsening to 100%. spiking fevers again. sputum with new GNRs. discussed with ID- will broaden abx. agitation persists. 05/27: no improvements. fio2 still elevated. sputum still growing klebisella and serratia. still highly agitated and minimal improvements with current sedation plan. in discussing with bedside RN: precedex does not appear to be providing any benefit, but adding 2L/day ivf, which is hurting fluid balance. 05/28: clinically decompensated today. hypoxic requiring bag valve mask support. spo2 70s%. likely combination of agitation, volume overload, persistent pneumonia, fibrotic phase ARDS. still + fluid balance despite all our efforts. restarting bumex drip. long discussion with father regarding prognosis and agitation. will again try to modify sedation plan to minimize unnecessary sedatives and achieve RASS 0 goal. 05/29: fio2 down to 70%. sedation plan much improved and patient far more calm than yesterday. ID added tigacycline today. discussed adding colistin nebs, but will hold off at this time. good diuresis with net -4L/24h. 05/30: far better today than yesterday. fio2 down to 40%. awake and CAM- for the first time in weeks. still spiking intermittent fevers. good diuresis, though Cr starting to uptrend. 05/31: continues to be febrile. Cr increasing significantly- likely now intravascularly dry, although anasarca remains. will be forced to hold bumex drip today. continue albumin to recruit extravascular volume. have spoken to LTAC- would be excellent candidate. 06/01: continues to have intermittent severe hypoxemia. have discussed with family: will proceed with diagnostic fiberoptic bronch as well as ANAIS to rule out PFO as a cause of intra-cardiac shunting and acute hypoxemia. 06/01 overnight: patient acutely became hypoxic leading to PEA arrest. ACLS was performed for an hour without ROSC. patient was declared . Family was notified.
== END 2018-06-01 20:35 | disposition expired ==
LOC: PHED 11:28 → MERGE 16:03 → PHEDA 16:03 → HIMC 17:15
PROVIDERS: ADMIT Internal Medicine Critical Care Medicine; ATTEND Internal Medicine Critical Care Medicine